=== PATIENT | female | born 1945 | race African-American/Black ===

== ENCOUNTER 2017-11-10 16:48 | Inpatient (IN) | payer MEDICARE, BC ==
[~2017-11-10] VITALS: Ht 170.2 cm; Wt 73.9 kg
--- NOTE | 2017-11-10 17:00 | Emergency Room Report ---
History of Present Illness General Chief Complaint: Altered Mental Status Present Illness HPI Patient is a 72-year-old female brought in by EMS with family member after increased altered mental status. Patient gradual onset of symptoms. The patient reportedly had a recent hospitalization approximately 2 months ago at [facility]. The patient recently been started on Nuedexta (dextromethorphan and quinidine). Patient had prior history of the reported dementia had previously been taking Seroquel. The patient was noted to have the decreased ability to ambulate for several months. Patient reportedly had a MRI previously which showed diffuse volume loss without evidence of infarct. Allergies: Coded Allergies: IODINE (Verified Allergy, Unknown, 11/10/17) Patient History Now: No Reviewed Nursing Documentation: PMH: Agreed; PSxH: Agreed Review of Systems All Other Systems: negative except mentioned in HPI Physical Exam Vital Signs Date Time Temp Pulse Resp B/P (MAP) Pulse Ox O2 Delivery O2 Flow Rate FiO2 11/10/17 16:41 98.7 90 18 146/80 96 Room Air 98.8 Sp02 EP Interpretation: reviewed, normal General Appearance: non-toxic, obese, Chronically Ill Head: atraumatic ENT: normal ENT inspection, hearing grossly normal, normal voice Neck: normal inspection, supple, no bony tend, limited range of motion Respiratory: normal inspection, lungs clear, normal breath sounds, no respiratory distress, no retraction, no wheezing Cardiovascular #1: regular rate, rhythm, no edema Gastrointestinal: normal inspection, soft, no guarding, no hernia Genitourinary: no CVA tenderness Musculoskeletal: back normal, decreased range of motion - contracture Neurologic: normal inspection, alert, responsive, handbag finisher III-XII nml as tested, speech normal, motor weakness Psychiatric: anxious Skin: normal inspection, normal color, no rash Medical Decision Making Diagnostic Impression: Primary Impression: Generalized weakness Additional Impressions: Hypokalemia UTI (urinary tract infection) Dementia ER Course Patient is a 72-year-old female who presented after increased altered mental status. Differential diagnosis included but was not limited to ischemic stroke, subarachnoid hemorrhage, hypoglycemia, spinal cord injury, neurodegenerative disorder, urinary tract infection, hypoxemia.Because of complexity of patient's case laboratory testing and imaging studies were ordered.The patient was noted to have a prior history of MRI imaging which showed a frontal atrophy. The patient was noted to have had diffuse weakness which appears to be associated with the muscle contractures.The EKG interpreted by tx showed normal sinus rhythm with a rate of [address] changes. Patient presented to have some nonspecific T wave changes and axis deviation. Laboratory testing was notable for severe hypokalemia. The patient was noted to have CT the head read by radiology which showed atrophic changes with chronic ischemic white matter changes. Patient was started on IV potassium. Magnesium level appear to be normal.Dr. Sampson Swartz was contacted for inpatient management Labs Test 11/10/17 17:15 11/10/17 17:30 White Blood Count 5.4 K/UL (4.8-10.8) Red Blood Count 4.79 M/UL (4.20-5.40) Hemoglobin 13.9 G/DL (12.0-16.0) Hematocrit 40.8 % (37.0-47.0) Mean Corpuscular Volume 85 FL (80-99) Mean Corpuscular Hemoglobin 29.0 PG (27.0-31.0) Mean Corpuscular Hemoglobin Concent 34.1 G/DL (32.0-36.0) Red Cell Distribution Width 15.1 % (11.6-14.8) Platelet Count 165 K/UL (150-450) Mean Platelet Volume 7.9 FL (6.5-10.1) Neutrophils (%) (Auto) 69.9 % (45.0-75.0) Lymphocytes (%) (Auto) 19.3 % (20.0-45.0) Monocytes (%) (Auto) 8.9 % (1.0-10.0) Eosinophils (%) (Auto) 0.8 % (0.0-3.0) Basophils (%) (Auto) 1.1 % (0.0-2.0) Sodium Level 146 MMOL/L (136-145) Potassium Level 2.6 MMOL/L (3.5-5.1) Chloride Level 109 MMOL/L (98-107) Carbon Dioxide Level 23 MMOL/L (21-32) Anion Gap 15 mmol/L (5-15) Blood Urea Nitrogen 9 mg/dL (7-18) Creatinine 1.0 MG/DL (0.55-1.30) Estimat Glomerular Filtration Rate > 60 mL/min (>60) Glucose Level 115 MG/DL (74-106) Lactic Acid Level 1.60 mmol/L (0.4-2.0) Calcium Level 10.0 MG/DL (8.5-10.1) Phosphorus Level 2.8 MG/DL (2.5-4.9) Magnesium Level 2.1 MG/DL (1.8-2.4) Total Bilirubin 0.7 MG/DL (0.2-1.0) Aspartate Amino Transf (AST/SGOT) 28 U/L (15-37) Alanine Aminotransferase (ALT/SGPT) 31 U/L (12-78) Alkaline Phosphatase 65 U/L (46-116) Total Creatine Kinase 76 U/L (26-308) Creatine Kinase MB 2.3 NG/ML (0.0-3.6) Creatine Kinase MB Relative Index 3.0 Troponin I 0.050 ng/mL (0.000-0.056) Total Protein 7.1 G/DL (6.4-8.2) Albumin 3.3 G/DL (3.4-5.0) Globulin 3.8 g/dL Albumin/Globulin Ratio 0.9 (1.0-2.7) Thyroid Stimulating Hormone (TSH) 0.746 uiU/mL (0.358-3.740) Urine Color Riri Urine Appearance Clear Urine pH 6.5 (4.5-8.0) Urine Specific [place] 1.015 (1.005-1.035) Urine Protein 1+ (NEGATIVE) Urine Glucose (UA) Negative (NEGATIVE) Urine Ketones 1+ (NEGATIVE) Urine Blood 2+ (NEGATIVE) Urine Nitrite Negative (NEGATIVE) Urine Bilirubin Negative (NEGATIVE) Urine Ictotest Negative (NEGATIVE) Urine Urobilinogen Normal MG/DL (0.0-1.0) Urine Leukocyte Esterase 1+ (NEGATIVE) Urine RBC 5-10 /HPF (0 - 2) Urine WBC 2-4 /HPF (0 - 2) Urine Squamous Epithelial Cells Moderate /LPF (NONE/OCC) Urine Bacteria Few /HPF (NONE) Urine Mucus Few /LPF (NONE/OCC) EKG Diagnostic Results Rate: normal - 85 Rhythm: NSR ST Segments: no acute changes Last Vital Signs Date Time Temp Pulse Resp B/P (MAP) Pulse Ox O2 Delivery O2 Flow Rate FiO2 11/10/17 16:41 98.7 90 18 146/80 96 Room Air 98.8 Status: unchanged Disposition: ADMITTED INPATIENT Condition: Serious Johnny Roque MD Nov 10, 2017 17:00
[2017-11-10 17:47] VITALS: BP 108/58
[2017-11-10] MEDS ORDERED: MULTIVITAMINS1 EAC8 ORAL (18:26)
[2017-11-10] MEDS ORDERED: MILK OF MA2400 MG/10 ORAL (18:26)
[2017-11-10] MEDS ORDERED: DOCUSATE SODIU100 MG ORAL ×2 (18:26)
[2017-11-10] MEDS ORDERED: METOPROLOL TART25 MG ORAL (18:26)
[2017-11-10] MEDS ORDERED: CATAPRES0.1 MG ORAL (18:26)
[2017-11-10] MEDS ORDERED: ZYPREXA2.5 MG ORAL (18:26)
[2017-11-10] MEDS ORDERED: BISACODYL5 MG RECTAL (18:26)
[2017-11-10] MEDS ORDERED: NUEDEXTA 20-101 EAC1 PO (18:26)
[2017-11-10] MEDS ORDERED: FLEET ENEMA133 ML RECTAL (18:26)
[2017-11-10] MEDS ORDERED: GERI-KOT8.6 MG PO (18:26)
[2017-11-10 18:36] LABS: BASOPHILS % (AUTO) 1.1 % (0.0-2.0); EOSINOPHILS % (AUTO) 0.8 % (0.0-3.0); HEMATOCRIT 40.8 % (37.0-47.0); HEMOGLOBIN 13.9 G/DL (12.0-16.0); LYMPHOCYTES % (AUTO) 19.3 % (20.0-45.0); MEAN CORPUSCULAR VOLUME 85 FL (80-99); MONOCYTES % (AUTO) 8.9 % (1.0-10.0); NEUTROPHILS % (AUTO) 69.9 % (45.0-75.0); PLATELET COUNT 165 K/UL (150-450); RED BLOOD COUNT 4.79 M/UL (4.20-5.40); RED CELL DISTRIBUTION WIDTH 15.1 % (11.6-14.8); WHITE BLOOD COUNT 5.4 K/UL (4.8-10.8)
[2017-11-10 18:54] LABS: APPEARANCE,URINE CLEAR; BILIRUBIN, URINE NEGATIVE (NEGATIVE); COLOR,URINE AMBER; GLUCOSE, URINE (UA) NEGATIVE (NEGATIVE); KETONES,URINE 1+ (NEGATIVE); LEUKOCYTE ESTERASE ,URINE 1+ (NEGATIVE); NITRITE,URINE NEGATIVE (NEGATIVE); PH,URINE 6.5 (4.5-8.0); PROTEIN,URINE 1+ (NEGATIVE); UROBILINOGEN,URINE NORMAL MG/DL (0.0-1.0)
[2017-11-10 19:09] LABS: ALANINE AMINOTRANSFERASE 31 U/L (12-78); ALBUMIN 3.3 G/DL (3.4-5.0); ALBUMIN/GLOBULIN RATIO 0.9 (1.0-2.7); ALKALINE PHOSPHATASE 65 U/L (46-116); ANION GAP 15 mmol/L (5-15); ASPARTATE AMINO TRANSFERASE 28 U/L (15-37); BILIRUBIN,TOTAL 0.7 MG/DL (0.2-1.0); BLOOD UREA NITROGEN 9 mg/dL (7-18); CARBON DIOXIDE 23 MMOL/L (21-32); CHLORIDE 109 MMOL/L (98-107); CKMB 2.3 NG/ML (0.0-3.6); CREATINE KINASE 76 U/L (26-308); PHOSPHORUS 2.8 MG/DL (2.5-4.9); SODIUM 146 MMOL/L (136-145)
[2017-11-10 19:10] LABS: POTASSIUM 2.6 MMOL/L (3.5-5.1)
[2017-11-10 20:25] VITALS: BP 149/96
[2017-11-10 20:30] VITALS: BP 142/91
[2017-11-10] MEDS ORDERED: Pantoprazole Inj IVP SCH (21:00)
[2017-11-10] MEDS ORDERED: D5 1/2NS w/KCl 40meq 1000ml 1,000 ML IV SCH (21:00)
[2017-11-10] MEDS ORDERED: Milk of Magnesia 30ml Ud ORAL PRN (23:30)
[2017-11-11] VITALS: BP 155/80
[2017-11-11 04:00] VITALS: BP 120/70
[2017-11-11 06:36] LABS: BASOPHILS % (AUTO) 0.6 % (0.0-2.0); EOSINOPHILS % (AUTO) 1.5 % (0.0-3.0); HEMATOCRIT 40.1 % (37.0-47.0); LYMPHOCYTES % (AUTO) 21.2 % (20.0-45.0); MEAN CORPUSCULAR VOLUME 86 FL (80-99); MONOCYTES % (AUTO) 9.9 % (1.0-10.0); NEUTROPHILS % (AUTO) 66.8 % (45.0-75.0); PLATELET COUNT 141 K/UL (150-450); RED BLOOD COUNT 4.67 M/UL (4.20-5.40); RED CELL DISTRIBUTION WIDTH 15.6 % (11.6-14.8); WHITE BLOOD COUNT 5.2 K/UL (4.8-10.8)
[2017-11-11 07:06] LABS: ALANINE AMINOTRANSFERASE 29 U/L (12-78); ALBUMIN/GLOBULIN RATIO 0.9 (1.0-2.7); ALKALINE PHOSPHATASE 60 U/L (46-116); ANION GAP 10 mmol/L (5-15); ASPARTATE AMINO TRANSFERASE 20 U/L (15-37); BILIRUBIN,TOTAL 0.6 MG/DL (0.2-1.0); BLOOD UREA NITROGEN 6 mg/dL (7-18); CALCIUM 9.4 MG/DL (8.5-10.1); CARBON DIOXIDE 24 MMOL/L (21-32); CHLORIDE 111 MMOL/L (98-107); CHOLESTEROL 213 MG/DL (< 200); CREATININE 0.8 MG/DL (0.55-1.30); GAMMA GLUTAMYL TRANSPEPTIDASE 29 U/L (5-85); HDL CHOLESTEROL 59 MG/DL (40-60); PHOSPHORUS 3.1 MG/DL (2.5-4.9); POTASSIUM 2.8 MMOL/L (3.5-5.1); SODIUM 145 MMOL/L (136-145); TRIGLYCERIDES 121 MG/DL (30-150)
[2017-11-11 08:00] VITALS: BP 137/69
--- NOTE | 2017-11-11 08:12 | Diagnostic Imaging Report ---
. Indication: Shortness of breath Technique: One view of the chest Comparison: Findings: Lungs and pleural spaces are clear. Heart size is normal Impression: No acute process
--- NOTE | 2017-11-11 08:14 | Diagnostic Imaging Report ---
Indications: Altered mental status Technique: Spiral acquisitions obtained through the brain. Angled axial and coronal 5 x 5 mm slices were reconstructed. Total dose length product 1428.87 mGycm. CTDI vol(s) 70.38 mGy. Dose reduction achieved using automated exposure control Comparison: None. Findings: There is age-related enlargement of the ventricles and extra axial CSF spaces. There is minimal periventricular deep white matter low-attenuation consistent with chronic ischemic change. Normal aquino-white differentiation. Visualized orbits and sinuses are unremarkable. The calvarium is intact Impression: Chronic and age-related changes. Negative for acute intracranial bleed or mass effect This agrees with the preliminary interpretation provided overnight by [facility] teleradiology service. The CT scanner at [facility] is accredited by the [employer] and the scans are performed using protocols designed to limit radiation exposure to as low as reasonably achievable to attain images of sufficient resolution adequate for diagnostic evaluation.
--- NOTE | 2017-11-11 08:55 | Consultation ---
Consult Note Consult Note Chief Complaint: Altered Mental Status HPI Patient is a 72-year-old female brought in by EMS with family member after increased altered mental status. Patient gradual onset of symptoms. The patient reportedly had a recent hospitalization approximately 2 months ago at [facility]. The patient recently been started on Nuedexta (dextromethorphan and quinidine). Patient had prior history of the reported dementia had previously been taking Seroquel. The patient was noted to have the decreased ability to ambulate for several months. Patient reportedly had a MRI previously which showed diffuse volume loss without evidence of infarct. Allergies: Coded Allergies: IODINE (Verified Allergy, Unknown, 11/10/17) examined data reviewed Assessment/Plan Generalized weakness Hypokalemia UTI (urinary tract infection) Dementia PO KCL Nahum Encarnacion MD Nov 11, 2017 08:55
[2017-11-11] MEDS ORDERED: OLANZapine 2.5mg tab ORAL SCH (09:00)
[2017-11-11] MEDS ORDERED: Docusate 100mg cap ORAL SCH ×2 (09:00)
[2017-11-11] MEDS: Docusate 100mg cap ORAL SCH ×3 (09:18→18:27)
--- NOTE | 2017-11-11 11:11 | Consultation ---
History of Present Illness General Date patient seen: Nov 11, 2017 Chief Complaint: Altered Mental Status Present Illness HPI 72-year-old female brought in by EMS with family member after increased altered mental status. The pt is confused and responding to internal medicine. The pt is having panic attack like sxs. The pt was crying and stated that he was scared. the pt is confused and has cognitive impairment Allergies: Coded Allergies: IODINE (Verified Allergy, Unknown, 11/10/17) Medication History Scheduled Bisacodyl* (Dulcolax*), 10 MG RECTAL PRN, (Reported) Clonidine Hcl* (Catapres*), 0.1 MG ORAL EVERY 6 HOURS, (Reported) Dextromethorphan Hbr/Quinidine (Nuedexta 20-10 Mg Capsule), 1 EACH PO DAILY, ( Reported) Docusate Sodium* (Docusate Sodium*), 100 MG ORAL PRN, (Reported) Docusate Sodium* (Docusate Sodium*), 100 MG ORAL TWICE A DAY, (Reported) Magnesium Hydroxide* (Milk Of Magnesia*), 30 ML ORAL DAILY, (Reported) Metoprolol Tartrate* (Metoprolol Tartrate*), 25 MG ORAL DAILY, (Reported) Multivitamin With Minerals (Multivitamins With Minerals*), 1 TAB ORAL DAILY, ( Reported) Na Phos,M-B/Na Phos,Di-Ba* (Fleet Enema*), 133 ML RECTAL DAILY, (Reported) Olanzapine* (Zyprexa*), 2.5 MG ORAL DAILY, (Reported) Sennosides (Laura-Palomo), 8.6 MG PO DAILY, (Reported) Patient History Limited by: medical condition History Provided By: Patient, Medical Record, PMD Healthcare decision maker Resuscitation status Full Code Advanced Directive on File No Past Medical/Surgical History Past Medical/Surgical History: (1) Hypokalemia (2) Generalized weakness (3) Dementia (4) UTI (urinary tract infection) (5) Altered level of consciousness Review of Systems Psychiatric: Reports: prior hx, anxiety, depressed feelings, hallucinations Physical Exam General Appearance: alert, confused, moderate distress, agitated Last 24 Hour Vital Signs Date Time Temp Pulse Resp B/P (MAP) Pulse Ox O2 Delivery O2 Flow Rate FiO2 11/11/17 08:00 56 11/11/17 08:00 97.0 69 18 137/69 (91) 94 97.0 11/11/17 04:00 57 11/11/17 04:00 98.2 70 20 120/70 (87) 94 98.2 11/11/17 00:00 98.4 79 20 155/80 (105) 94 98.4 11/11/17 00:00 73 11/10/17 23:22 Room Air 11/10/17 20:40 82 11/10/17 20:30 97.7 81 20 142/91 (108) 96 97.7 11/10/17 20:25 77 21 149/96 98 Room Air 11/10/17 20:25 77 21 149/96 98 Room Air 11/10/17 17:47 99.5 72 16 108/58 99 Room Air 99.5 11/10/17 16:41 98.7 90 18 146/80 96 Room Air 98.8 Intake and Output 11/10/17 11/11/17 19:00 07:00 Intake Total 200 ml Output Total 200 ml 100 ml Balance -200 ml 100 ml Intake Oral 200 ml Output Urine Total 200 ml 100 ml # Voids 2 Laboratory Tests Test 11/10/17 17:15 11/10/17 17:30 11/10/17 17:50 11/11/17 04:50 White Blood Count 5.4 K/UL (4.8-10.8) 5.2 K/UL (4.8-10.8) Red Blood Count 4.79 M/UL (4.20-5.40) 4.67 M/UL (4.20-5.40) Hemoglobin 13.9 G/DL (12.0-16.0) 13.0 G/DL (12.0-16.0) Hematocrit 40.8 % (37.0-47.0) 40.1 % (37.0-47.0) Mean Corpuscular Volume 85 FL (80-99) 86 FL (80-99) Mean Corpuscular Hemoglobin 29.0 PG (27.0-31.0) 27.9 PG (27.0-31.0) Mean Corpuscular Hemoglobin Concent 34.1 G/DL (32.0-36.0) 32.5 G/DL (32.0-36.0) Red Cell Distribution Width 15.1 % (11.6-14.8) H 15.6 % (11.6-14.8) H Platelet Count 165 K/UL (150-450) 141 K/UL (150-450) L Mean Platelet Volume 7.9 FL (6.5-10.1) 8.5 FL (6.5-10.1) Neutrophils (%) (Auto) 69.9 % (45.0-75.0) 66.8 % (45.0-75.0) Lymphocytes (%) (Auto) 19.3 % (20.0-45.0) L 21.2 % (20.0-45.0) Monocytes (%) (Auto) 8.9 % (1.0-10.0) 9.9 % (1.0-10.0) Eosinophils (%) (Auto) 0.8 % (0.0-3.0) 1.5 % (0.0-3.0) Basophils (%) (Auto) 1.1 % (0.0-2.0) 0.6 % (0.0-2.0) Sodium Level 146 MMOL/L (136-145) H 145 MMOL/L (136-145) Potassium Level 2.6 MMOL/L (3.5-5.1) *L 2.8 MMOL/L (3.5-5.1) L Chloride Level 109 MMOL/L (98-107) H 111 MMOL/L (98-107) H Carbon Dioxide Level 23 MMOL/L (21-32) 24 MMOL/L (21-32) Anion Gap 15 mmol/L (5-15) 10 mmol/L (5-15) Blood Urea Nitrogen 9 mg/dL (7-18) 6 mg/dL (7-18) L Creatinine 1.0 MG/DL (0.55-1.30) 0.8 MG/DL (0.55-1.30) Estimat Glomerular Filtration Rate > 60 mL/min (>60) > 60 mL/min (>60) Glucose Level 115 MG/DL (74-106) H 123 MG/DL (74-106) H Lactic Acid Level 1.60 mmol/L (0.4-2.0) Calcium Level 10.0 MG/DL (8.5-10.1) 9.4 MG/DL (8.5-10.1) Phosphorus Level 2.8 MG/DL (2.5-4.9) 3.1 MG/DL (2.5-4.9) Magnesium Level 2.1 MG/DL (1.8-2.4) 2.0 MG/DL (1.8-2.4) Total Bilirubin 0.7 MG/DL (0.2-1.0) 0.6 MG/DL (0.2-1.0) Aspartate Amino Transf (AST/SGOT) 28 U/L (15-37) 20 U/L (15-37) Alanine Aminotransferase (ALT/SGPT) 31 U/L (12-78) 29 U/L (12-78) Alkaline Phosphatase 65 U/L (46-116) 60 U/L (46-116) Total Creatine Kinase 76 U/L (26-308) Creatine Kinase MB 2.3 NG/ML (0.0-3.6) Creatine Kinase MB Relative Index 3.0 Troponin I 0.050 ng/mL (0.000-0.056) 0.044 ng/mL (0.000-0.056) Total Protein 7.1 G/DL (6.4-8.2) 6.5 G/DL (6.4-8.2) Albumin 3.3 G/DL (3.4-5.0) L 3.0 G/DL (3.4-5.0) L Globulin 3.8 g/dL 3.5 g/dL Albumin/Globulin Ratio 0.9 (1.0-2.7) L 0.9 (1.0-2.7) L Osteocalcin Pending Thyroid Stimulating Hormone (TSH) 0.746 uiU/mL (0.358-3.740) Urine Color Riri Urine Appearance Clear Urine pH 6.5 (4.5-8.0) Urine Specific [place] 1.015 (1.005-1.035) Urine Protein 1+ (NEGATIVE) H Urine Glucose (UA) Negative (NEGATIVE) Urine Ketones 1+ (NEGATIVE) H Urine Blood 2+ (NEGATIVE) H Urine Nitrite Negative (NEGATIVE) Urine Bilirubin Negative (NEGATIVE) Urine Ictotest Negative (NEGATIVE) Urine Urobilinogen Normal MG/DL (0.0-1.0) Urine Leukocyte Esterase 1+ (NEGATIVE) H Urine RBC 5-10 /HPF (0 - 2) H Urine WBC 2-4 /HPF (0 - 2) Urine Squamous Epithelial Cells Moderate /LPF (NONE/OCC) H Urine Bacteria Few /HPF (NONE) Urine Mucus Few /LPF (NONE/OCC) H C-Reactive Protein, Quantitative 1.2 mg/dL (0.00-0.90) H Hemoglobin A1c 6.0 % (4.3-6.0) Uric Acid 5.7 MG/DL (2.6-7.2) Gamma Glutamyl Transpeptidase 29 U/L (5-85) Pro-B-Type Natriuretic Peptide 615 pg/mL (0-125) H Triglycerides Level 121 MG/DL (30-150) Cholesterol Level 213 MG/DL (< 200) H LDL Cholesterol 128 mg/dL (<100) H HDL Cholesterol 59 MG/DL (40-60) Cholesterol/HDL Ratio 3.6 (3.3-4.4) Vitamin B12 Level 460 PG/ML (193-986) Folate 10.3 NG/ML (8.6-58.9) Height (Feet): 5 Height (Inches): 7.00 Weight (Pounds): 147 Medications Current Medications Medications (Trade) Dose Ordered Sig/Claritza Route PRN Reason Start Time Stop Time Status Last Admin Dose Admin Acetaminophen (Tylenol) 650 mg Q4H PRN ORAL Mild Pain/Temp > 100.5 11/10/17 23:30 12/10/17 23:29 Bisacodyl (Dulcolax) 10 mg NEEDED PRN RECTAL Constipation 11/10/17 23:45 12/10/17 23:44 Clonidine HCl (Catapres Tab) 0.1 mg EVERY 6 HOURS PRN ORAL For High Blood Pressure 11/10/17 23:30 12/10/17 23:29 Docusate Sodium (Colace) 100 mg TWICE A DAY ORAL 11/11/17 09:00 12/11/17 08:59 11/11/17 09:18 Famotidine (Pepcid) 20 mg BID ORAL 11/11/17 09:00 12/11/17 08:59 11/11/17 09:18 Magnesium Hydroxide (Mom) 30 ml DAILY PRN ORAL Constipation 11/10/17 23:30 12/10/17 23:29 Multivitamins (Multivitamins) 1 tab DAILY ORAL 11/11/17 09:00 12/11/17 08:59 11/11/17 09:20 Olanzapine (ZyPREXA) 2.5 mg DAILY ORAL 11/11/17 09:00 12/11/17 08:59 11/11/17 09:19 Potassium Chloride (K-Dur) 40 meq TID ORAL 11/11/17 09:00 12/11/17 08:59 11/11/17 09:20 Assessment/Plan Problem List: (1) Encephalopathy due to metabolic factor or toxin [facility]: [id number] Assessment/Plan dc zyprexa start risperdal 1mg po bid ativan 2mg q4 prn Ramon Duke MD Nov 11, 2017 11:10
[2017-11-11] MEDS ORDERED: LORazepam 1mg tab ORAL PRN (11:15)
[2017-11-11 12:00] VITALS: BP 141/75
[2017-11-11] MEDS: Piperacillin/Tazobactam 3.375 GM in D5W 110 ML IVPB SCH ×2 (15:36→21:46)
[2017-11-11 16:00] VITALS: BP 150/73
--- NOTE | 2017-11-11 17:00 | Consultation ---
DATE OF CONSULTATION: 11/11/2017 INFECTIOUS DISEASES CONSULTATION CONSULTING PHYSICIAN: Radha Dunham M.D. REFERRING PHYSICIAN: Sampson Leggett M.D. This consultation has been done on behalf of Dr. Kevon Thurston. REASON FOR CONSULTATION: Urinary tract infection. HISTORY OF PRESENTING ILLNESS: This is a 72-year-old lady with unknown past medical history, who was brought in with increasing altered mental status. She was found to have a urinary tract infection and an Infectious Diseases consultation has been obtained for antibiotics. PAST MEDICAL HISTORY: History of dementia. MEDICATIONS: As an inpatient, the patient is on Risperdal, Ativan, multivitamin, docusate, potassium, famotidine, Dulcolax, Tylenol, clonidine and milk of magnesia. ALLERGIES: She is allergic to iodine. SOCIAL HISTORY: Unknown. FAMILY HISTORY: Unknown. REVIEW OF SYSTEMS: Unable to obtain currently. PHYSICAL EXAMINATION: VITAL SIGNS: Temperature of 98.8 degrees, T-max of 99.5 degrees, pulse of 87, respiratory rate of 18, blood pressure 141/75 and O2 saturation of 94%. HEENT: Pupils equally reactive to light and accommodation. Mouth appears clean without thrush. NECK: Supple. No adenopathy. No JVD. CARDIOVASCULAR: Regular rate and rhythm. No murmurs. LUNGS: Clear to auscultation bilaterally. No crackles. No wheezes. ABDOMEN: Soft and nontender. No organomegaly. EXTREMITIES: No cyanosis, no clubbing, and no edema. LABORATORY AND DIAGNOSTIC DATA: White count 5.2, hemoglobin 13, hematocrit 40.1, MCV 86, and platelet count of 141 with neutrophils of 66%. Sodium 145, potassium 2.8, chloride 111, bicarbonate 24, BUN 6 creatinine 0.8 and glucose 123. Calcium 9.4. Total bilirubin 0.6. AST 20, ALT 29, and alkaline phosphatase 60. C-reactive protein 1.2. Beta-natriuretic peptide 615. Total protein 6.5. Albumin 3. Cholesterol of 213. UA showing 2 to 4 white cells. Urine cultures are pending. Blood cultures are pending. Chest x-ray showed no acute process. CT head showing chronic age-related changes, negative for bleed or mass effect. ASSESSMENT: This is a 72-year-old lady with history of dementia, who comes in with 1. Urinary tract infection. Cultures are pending. 2. Dementia. PLAN: 1. We will start the patient on Zosyn. 2. We will follow up cultures and adjust antibiotics accordingly. I would like to thank, Dr. Leggett for this consultation. Radha Dunham M.D. DR: PATITO JOB#: [id number] CC: Sampson Leggett M.D.; Fax#: [phone]
[2017-11-11 20:00] VITALS: BP 161/48
--- NOTE | 2017-11-11 20:45 | Consultation ---
Consult Note Consult Note NEUROLOGY CONSULTATION: Full note dictated #[id number] 72 y/o, BF of ?H who has a PH of dementia. She was brought in by EMS with a family member after she was noted to have a worsening of her mental status. She apparently had a recent hospitalization approximately 2 months ago at [facility]. She was also recently been started on Nuedexta for behavioral problems. On being evaluated in the ER she had a UTI and is being treated for it. She was given Ativan 2 mg for agitation and since then has been poorly responsive ON EXAM: Cannot be aroused even on deep pain. Only moans and groans and withdraws appropriate extremity on DP. No definite focal dysfunction. IMPRESSION: Dementia with recent encephalopathy due to UTI. In drug induced unresponsive state now. REC: Rx of infection. Careful with use of mind altering drugs. Jyoti Amos M.D., M.S.P.Radha. JYOTI AMOS Nov 11, 2017 20:45
--- NOTE | 2017-11-11 21:30 | Consultation ---
DATE OF CONSULTATION: 11/11/2017 NEUROLOGY CONSULTATION CONSULTING PHYSICIAN: Kenny Amos M.D. REQUESTING PHYSICIAN: Sampson Leggett M.D. HISTORY: Ms. Erica Ortega is a 72-year-old, black lady, of unknown handedness, who does have a past history of dementia - the exact details of this are unknown to us. She was brought in by the emergency medical services with a family member after she was noted to have a worsening of her mental state at home. She apparently had a recent hospitalization approximately two months ago at [facility] for similar symptoms. She was also recently started on Nuedexta for behavioral problems. On being evaluated in the emergency room, she had a urinary tract infection and has been seen for it by Dr. Dunham and is on appropriate antibiotics. Earlier today, she was given Ativan 2 mg for agitation and since then, she has been poorly responsive. This consultation was requested to evaluate the patient for her altered mental state. At this point in time, the patient cannot be aroused and thus no further history can be obtained. PAST MEDICAL HISTORY: Significant for dementia of unknown type with MRI imaging showing no focal pathology. FAMILY HISTORY: Nothing significant as per the chart. PERSONAL HISTORY: Home: She lives with family members at home. Work and habits: Unknown. MEDICATIONS: Risperdal 1 mg twice a day, Zosyn, lorazepam 2 mg q.6 h. p.r.n., multivitamins. She was given a single dose of olanzapine earlier, which has been discontinued, DSS, potassium chloride, Pepcid, Dulcolax, Tylenol, clonidine and magnesium hydroxide. PHYSICAL EXAMINATION: GENERAL: She is a well-developed, well-nourished, black lady, lying in bed, in no acute distress. VITAL SIGNS: Pulse 58/minute, blood pressure 161/48 mmHg, respirations 20/minute, temperature 98.1 degrees Fahrenheit. HEAD: Normocephalic and atraumatic. EENT: Examination benign. NECK: No neck rigidity was observed. NEUROLOGIC EXAMINATION: MENTAL STATUS EXAMINATION: She was unresponsive even to deep painful stimuli. She only moaned and groaned and withdrew the appropriate extremity, but did not respond many other way. Further mental status testing was impossible. SPEECH: Could not be tested. LANGUAGE: Could not be tested. CRANIAL NERVE EXAMINATION: II: She did not blink to threat. III, IV & : The external ocular movements were present on oculocephalic maneuvers. The pupils were 3 mm in diameter, equal, round, regular, and reactive sluggishly to light. V & VII: The corneal reflexes were present and symmetrical bilaterally. VIII: She did not respond to sounds and had no nystagmus. IX & X: The gag reflex was present, but diminished. XI: The sternocleidomastoids and trapezii did function. XII: The tongue was in the midline. MOTOR SYSTEM: The tone was increased in all four extremities with gegenhalten. Examination of muscle mass revealed generalized muscle wasting. Examination of power was impossible to perform because even on applying deep painful stimuli only nonpurposeful withdrawal of the extremity was made. SENSORY EXAMINATION: She responded minimally to deep pain with withdrawal of the appropriate extremity. REFLEXES: 1+ and bilaterally symmetrical at the biceps, triceps, brachioradialis, and knees, 0 at both ankles. The plantar responses were extensor bilaterally. COORDINATION, STANCE & GAIT: Could not be tested. DIAGNOSTIC IMPRESSION: 1. Ms. Erica Ortega is a 72-year-old, black lady, of unknown handedness, who does have a past history of dementia and behavioral problems who was hospitalized for an alteration in her mental state. Of note is that, she was recently started on Nuedexta for behavioral problems. On being evaluated in the emergency room, she was noted to have a urinary tract infection and is on antibiotics for it. She however was given Zyprexa earlier this morning and Ativan this evening and has been poorly responsive since then. 2. On neurological examination, at this time, she could not be aroused even on applying deep painful stimuli. She only moans and groans and withdraws the appropriate extremity on deep painful stimuli. She however does not demonstrate any focal or lateralizing neurological findings. 3. A CT scan of the brain performed on 11/10/2017 reveals atrophy and deep white matter changes, but no acute pathology. 4. Laboratory data revealed a relatively normal CBC. The chemistry panel revealed a low potassium at 2.8, a high chloride at 111 and an elevated glucose of 123. Her B12 level is normal at 460. Her folate was normal at 10.3 and her TSH was normal at 0.746. Her urinalysis however was abnormal with 1+ leukocyte esterase, 5-10 RBCs, 2-4 WBCs with few urinary bacteria. 5. The patient's history, neurological examination, laboratory data, and imaging studies are most compatible with an underlying dementia most probably of a primary degenerative nature and now a superimposed encephalopathy related to her urinary tract infection and in addition to the drugs that she was given. RECOMMENDATIONS: 1. Agree with management thus far. 2. Treatment of infectious process is being done right now. 3. One should be careful with the use of mind-altering drugs in this patient because she seems to be responding with significant sedation. 4. The patient will be observed closely and depending on how she fares over the next day or so, further recommendations will be given. Thank you for entrusting me with the care of Ms. Ortega. I shall follow her with you. Kenny Amos M.D., M.S.P.H. DR: ISAIAH JOB#: [id number] MTDD
[2017-11-12] VITALS: BP 155/75
--- NOTE | 2017-11-12 03:15 | History and Physical Report ---
DATE OF ADMISSION: 11/10/2017 NOTE: POOR AUDIO HISTORY OF PRESENT ILLNESS: The patient is a poor historian . She is admitted for generalized weakness, agitation, UTI, and severe hypokalemia. The patient is coming from a residential as well. The patient has been getting IV fluids because the patient does not eat. The patient is having both progressive dementia and psychosis. The patient is hallucinating and has psychosis. The patient is admitted for hypokalemia. In the past, workup etiology to explain the acute encephalopathy progression of her psychosis and dementia. The patient has been getting IV fluids at the residential. PAST MEDICAL HISTORY: Advanced dementia, psychosis, constipation, and hypertension. PAST SURGICAL HISTORY: None known. ALLERGIES: To iodine. MEDICATIONS: Colace, metoprolol, multivitamin, olanzapine, and Senokot. SOCIAL HISTORY: Unable to obtain. REVIEW OF SYSTEMS: Unable to obtain. FAMILY HISTORY: Unable to obtain, very poor historian. PHYSICAL EXAMINATION: VITAL SIGNS: Temperature 98.2 degrees, pulse is 57, and blood pressure 120/70. HEENT: PERRLA. NECK: Supple. No lymphadenopathy. CHEST: Clear to auscultation. GASTROINTESTINAL: Soft, nontender, and nondistended. No organomegaly. EXTREMITIES: No edema. NEUROLOGIC: Moves all four extremities. Oriented x0. The patient is hallucinating actively. LABORATORY AND DIAGNOSTIC DATA: Laboratory rbice, WBC of 5.4, hemoglobin 13.9, and platelet 165. Sodium 145, potassium 2.8, glucose 128, BUN of 6, and creatinine 0.8. ASSESSMENT AND PLAN: Urinary tract infection, severe hypokalemia, failure to thrive, not eating, hallucination, psychosis, advanced dementia. I have asked Dr. Connolly, Dr. Doan, Dr. Duke, Dr. Kevon Thurston to see the patient for the above-mentioned diagnoses and for the treatment of UTI. Sampson Leggett M.D. DR: ISAAC JOB#: [id number] CC:
[2017-11-12 04:00] VITALS: BP 121/72
[2017-11-12] MEDS: Piperacillin/Tazobactam 3.375 GM in D5W 110 ML IVPB SCH ×2 (05:49→14:58)
[2017-11-12 07:46] LABS: BASOPHILS % (AUTO) 1.3 % (0.0-2.0); EOSINOPHILS % (AUTO) 2.1 % (0.0-3.0); HEMATOCRIT 41.9 % (37.0-47.0); HEMOGLOBIN 13.5 G/DL (12.0-16.0); MEAN CORPUSCULAR VOLUME 86 FL (80-99); MONOCYTES % (AUTO) 10.8 % (1.0-10.0); NEUTROPHILS % (AUTO) 62.8 % (45.0-75.0); PLATELET COUNT 129 K/UL (150-450); RED BLOOD COUNT 4.86 M/UL (4.20-5.40); RED CELL DISTRIBUTION WIDTH 15.5 % (11.6-14.8); WHITE BLOOD COUNT 5.5 K/UL (4.8-10.8)
[2017-11-12 08:00] VITALS: BP 115/67
[2017-11-12 08:11] LABS: ALANINE AMINOTRANSFERASE 26 U/L (12-78); ALBUMIN/GLOBULIN RATIO 0.8 (1.0-2.7); ALKALINE PHOSPHATASE 61 U/L (46-116); ANION GAP 9 mmol/L (5-15); ASPARTATE AMINO TRANSFERASE 26 U/L (15-37); BILIRUBIN,TOTAL 0.9 MG/DL (0.2-1.0); BLOOD UREA NITROGEN 7 mg/dL (7-18); CALCIUM 9.5 MG/DL (8.5-10.1); CARBON DIOXIDE 25 MMOL/L (21-32); CHLORIDE 110 MMOL/L (98-107); CREATININE 0.9 MG/DL (0.55-1.30); POTASSIUM 3.1 MMOL/L (3.5-5.1); SODIUM 144 MMOL/L (136-145)
[2017-11-12] MEDS: Docusate 100mg cap ORAL SCH ×3 (09:07→17:36)
--- NOTE | 2017-11-12 10:21 | GI Initial Consult Note ---
History of Present Illness General Date patient seen: Nov 12, 2017 Time patient seen: 10:21 Reason for Hospitalization: Altered Mental Status Referring physician: RENATO JOHNS Reason for Consultation: CONSTIPATION Present Illness HPI Patient is a 72-year-old female brought in by EMS with family member after increased altered mental status. Patient gradual onset of symptoms. The patient reportedly had a recent hospitalization approximately 2 months ago at [facility]. The patient recently been started on Nuedexta (dextromethorphan and quinidine). Patient had prior history of the reported dementia had previously been taking Seroquel. The patient was noted to have the decreased ability to ambulate for several months. Patient reportedly had a MRI previously which showed diffuse volume loss without evidence of infarct. GI consulted for constipation. ROS limited, pt seen awake unable to obtain any history. NAD, no active s/sx of N/V/D. Per report patient has constipation. No report of any last BM. Labs reviewed show hypokalemia. No leukocytosis. No anemia. Unknown history of endoscopy / colonoscopy. Home Meds Reported Medications Olanzapine* (ZYPREXA*) 2.5 Mg Tablet, 2.5 MG ORAL DAILY, #30 TAB 0 Refills 11/10/17 Dextromethorphan Hbr/Quinidine (NUEDEXTA 20-10 MG CAPSULE) 1 Each Capsule, 1 EACH PO DAILY, CAP 11/10/17 Multivitamin With Minerals (MULTIVITAMINS WITH MINERALS*) 1 Each Tablet, 1 TAB ORAL DAILY, TAB 11/10/17 Magnesium Hydroxide* (MILK OF MAGNESIA*) 2,400 Mg/10 Ml Oral.susp, 30 ML ORAL DAILY, ML 11/10/17 Metoprolol Tartrate* (METOPROLOL TARTRATE*) 25 Mg Tablet, 25 MG ORAL DAILY, TAB 11/10/17 Sennosides (Laura-Palomo) 8.6 Mg Tablet, 8.6 MG PO DAILY, TAB 11/10/17 Na Phos,M-B/Na Phos,Di-Ba* (FLEET ENEMA*) 133 Ml Enema, 133 ML RECTAL DAILY, ML 0 Refills 11/10/17 Bisacodyl* (DULCOLAX*) 5 Mg Tablet.dr, 10 MG RECTAL PRN, #10 TAB 0 Refills 11/10/17 Docusate Sodium* (DOCUSATE SODIUM*) 100 Mg Capsule, 100 MG ORAL TWICE A DAY, CAP 11/10/17 Docusate Sodium* (DOCUSATE SODIUM*) 100 Mg Capsule, 100 MG ORAL PRN, CAP 11/10/17 Clonidine Hcl* (CATAPRES*) 0.1 Mg Tablet, 0.1 MG ORAL EVERY 6 HOURS, TAB 11/10/17 Med list reviewed/reconciled: Yes Allergies: Coded Allergies: IODINE (Verified Allergy, Unknown, 11/10/17) Patient History Limited by: medical condition History Provided By: Medical Record [facility] Narrative PAST MEDICAL HISTORY: Advanced dementia, psychosis, constipation, and hypertension. PAST SURGICAL HISTORY: None known. Social History: Denies: smoking, alcohol use, drug use, other Review of Systems All Other Systems: limited Physical Exam Vital Signs Date Time Temp Pulse Resp B/P (MAP) Pulse Ox O2 Delivery O2 Flow Rate FiO2 11/10/17 16:41 98.7 90 18 146/80 96 Room Air 98.8 Sp02 EP Interpretation: reviewed, normal Labs Laboratory Tests Test 11/12/17 07:15 White Blood Count 5.5 K/UL (4.8-10.8) Red Blood Count 4.86 M/UL (4.20-5.40) Hemoglobin 13.5 G/DL (12.0-16.0) Hematocrit 41.9 % (37.0-47.0) Mean Corpuscular Volume 86 FL (80-99) Mean Corpuscular Hemoglobin 27.8 PG (27.0-31.0) Mean Corpuscular Hemoglobin Concent 32.3 G/DL (32.0-36.0) Red Cell Distribution Width 15.5 % (11.6-14.8) H Platelet Count 129 K/UL (150-450) L Mean Platelet Volume 8.6 FL (6.5-10.1) Neutrophils (%) (Auto) 62.8 % (45.0-75.0) Lymphocytes (%) (Auto) 23.0 % (20.0-45.0) Monocytes (%) (Auto) 10.8 % (1.0-10.0) H Eosinophils (%) (Auto) 2.1 % (0.0-3.0) Basophils (%) (Auto) 1.3 % (0.0-2.0) Sodium Level 144 MMOL/L (136-145) Potassium Level 3.1 MMOL/L (3.5-5.1) L Chloride Level 110 MMOL/L (98-107) H Carbon Dioxide Level 25 MMOL/L (21-32) Anion Gap 9 mmol/L (5-15) Blood Urea Nitrogen 7 mg/dL (7-18) Creatinine 0.9 MG/DL (0.55-1.30) Estimat Glomerular Filtration Rate > 60 mL/min (>60) Glucose Level 94 MG/DL (74-106) Calcium Level 9.5 MG/DL (8.5-10.1) Total Bilirubin 0.9 MG/DL (0.2-1.0) Aspartate Amino Transf (AST/SGOT) 26 U/L (15-37) Alanine Aminotransferase (ALT/SGPT) 26 U/L (12-78) Alkaline Phosphatase 61 U/L (46-116) Total Protein 6.7 G/DL (6.4-8.2) Albumin 3.0 G/DL (3.4-5.0) L Globulin 3.7 g/dL Albumin/Globulin Ratio 0.8 (1.0-2.7) L General Appearance: well appearing, no apparent distress, alert Head: normocephalic EENT: PERRL/EOMI, normal ENT inspection Neck: supple Respiratory: normal breath sounds, no respiratory distress Cardiovascular: normal rate Gastrointestinal: normal inspection, non tender, soft, normal bowel sounds, non -distended Rectal: deferred Genitourinary: no CVA tenderness Musculoskeletal: normal inspection, back normal Neurologic: normal inspection, responsive Skin: normal inspection, normal color, no rash, warm/dry, palpation normal, well hydrated Lymphatic: normal inspection, no adenopathy Current Medications Current Medications Medications (Trade) Dose Ordered Sig/Claritza Route PRN Reason Start Time Stop Time Status Last Admin Dose Admin Acetaminophen (Tylenol) 650 mg Q4H PRN ORAL Mild Pain/Temp > 100.5 11/10/17 23:30 12/10/17 23:29 Bisacodyl (Dulcolax) 10 mg NEEDED PRN RECTAL Constipation 11/10/17 23:45 12/10/17 23:44 Clonidine HCl (Catapres Tab) 0.1 mg EVERY 6 HOURS PRN ORAL For High Blood Pressure 11/10/17 23:30 12/10/17 23:29 Docusate Sodium (Colace) 100 mg TWICE A DAY ORAL 11/11/17 09:00 12/11/17 08:59 11/12/17 09:07 Famotidine (Pepcid) 20 mg BID ORAL 11/11/17 09:00 12/11/17 08:59 11/12/17 09:07 Lorazepam (Ativan) 2 mg Q6H PRN ORAL For Anxiety 11/11/17 11:15 11/18/17 11:14 11/11/17 15:40 Magnesium Hydroxide (Mom) 30 ml DAILY PRN ORAL Constipation 11/10/17 23:30 12/10/17 23:29 Multivitamins (Multivitamins) 1 tab DAILY ORAL 11/11/17 09:00 12/11/17 08:59 11/12/17 09:07 Piperacillin Sod/ Tazobactam Sod 3.375 gm/Dextrose 110 ml @ 27.5 mls/hr EVERY 8 HOURS IVPB 11/11/17 15:30 11/16/17 15:29 11/12/17 05:49 Potassium Chloride (K-Dur) 40 meq TID ORAL 11/11/17 09:00 12/11/17 08:59 11/12/17 09:08 Risperidone (RisperDAL) 1 mg BID ORAL 11/11/17 18:00 12/11/17 17:59 11/12/17 09:07 GI: Plan Problems: (1) Constipation (2) Generalized weakness (3) Dementia (4) Altered level of consciousness Plan supportive care at this time, follow up psych recs patient on regular diet start bowel regime >> colace + miralax ppi zofran prn fu labs outpatient GI procedures Discussed with Dr. Doan. Thank you for this patient referral, we will follow. The patient was seen and examined at bedside and all new and available data was reviewed in the patients chart. I agree with the above findings, impression and plan. (Patient seen earlier today. Signature stamp does not reflect patient encounter time.). - MD Darlene Arguelles,Angelina-Xavi [employer] Nov 12, 2017 10:21
[2017-11-12 12:00] VITALS: BP 120/65
--- NOTE | 2017-11-12 12:49 | Nephrology Progress Note ---
Assessment/Plan Problem List: (1) Hypokalemia (2) Dementia (3) UTI (urinary tract infection) (4) Encephalopathy due to metabolic factor or toxin Assessment Severe Encephalopathy Generalized weakness Hypokalemia UTI (urinary tract infection) Dementia Plan NPO except meds- IV fluid Adjust mind altering meds start PO when more awake discussed with RN Subjective ROS Limited/Unobtainable: No Constitutional: Reports: malaise, weakness, other Objective Objective Last 24 Hour Vital Signs Date Time Temp Pulse Resp B/P (MAP) Pulse Ox O2 Delivery O2 Flow Rate FiO2 11/12/17 12:00 98.6 68 120/65 (83) 98.6 11/12/17 09:00 Room Air 11/12/17 08:00 98.0 66 115/67 (83) 98.0 11/12/17 07:54 56 11/12/17 04:03 54 11/12/17 04:00 98.0 57 20 121/72 (88) 95 98.0 11/12/17 00:00 98.2 91 20 155/75 (101) 100 98.2 11/11/17 23:42 73 11/11/17 21:00 Room Air 11/11/17 20:00 55 11/11/17 20:00 98.1 58 20 161/48 (85) 90 98.1 11/11/17 16:00 98.2 74 18 150/73 (98) 93 98.2 11/11/17 16:00 80 Intake and Output 11/11/17 11/12/17 19:00 07:00 Intake Total 117.0 ml Output Total 300 ml Balance -183.0 ml IV Total 117.0 ml Output Urine Total 300 ml # Voids 3 Laboratory Tests 11/12/17 07:15: White Blood Count 5.5, Red Blood Count 4.86, Hemoglobin 13.5, Hematocrit 41.9, Mean Corpuscular Volume 86, Mean Corpuscular Hemoglobin 27.8, Mean Corpuscular Hemoglobin Concent 32.3, Red Cell Distribution Width 15.5H, Platelet Count 129L , Mean Platelet Volume 8.6, Neutrophils (%) (Auto) 62.8, Lymphocytes (%) (Auto) 23.0, Monocytes (%) (Auto) 10.8H, Eosinophils (%) (Auto) 2.1, Basophils (%) ( Auto) 1.3, Sodium Level 144, Potassium Level 3.1L, Chloride Level 110H, Carbon Dioxide Level 25, Anion Gap 9, Blood Urea Nitrogen 7, Creatinine 0.9, Estimat Glomerular Filtration Rate > 60, Glucose Level 94, Calcium Level 9.5, Total Bilirubin 0.9, Aspartate Amino Transf (AST/SGOT) 26, Alanine Aminotransferase ( ALT/SGPT) 26, Alkaline Phosphatase 61, Total Protein 6.7, Albumin 3.0L, Globulin 3.7, Albumin/Globulin Ratio 0.8L Height (Feet): 5 Height (Inches): 7.00 Weight (Pounds): 147 General Appearance: lethargic, other - arousable Cardiovascular: bradycardia Respiratory/Chest: decreased breath sounds Abdomen: soft Neurologic: other - non verbal Nahum Connolly MD Nov 12, 2017 12:49
[2017-11-12] MEDS: D5 1/2NS 1,000 ML IV SCH (13:09)
--- NOTE | 2017-11-12 14:06 | General Progress Note ---
Assessment/Plan Problem List: (1) Encephalopathy due to metabolic factor or toxin SNOMED: 254287789 Status: stable Assessment/Plan decrease ativan decrease risperdal 1mg qhs Subjective Date patient seen: Nov 12, 2017 Neurologic/Psychiatric: Reports: anxiety, emotional problems Allergies: Coded Allergies: IODINE (Verified Allergy, Unknown, 11/10/17) Subjective calmer today Objective Last 24 Hour Vital Signs Date Time Temp Pulse Resp B/P (MAP) Pulse Ox O2 Delivery O2 Flow Rate FiO2 11/12/17 12:00 98.6 68 120/65 (83) 98.6 11/12/17 11:57 65 11/12/17 09:00 Room Air 11/12/17 08:00 98.0 66 115/67 (83) 98.0 11/12/17 07:54 56 11/12/17 04:03 54 11/12/17 04:00 98.0 57 20 121/72 (88) 95 98.0 11/12/17 00:00 98.2 91 20 155/75 (101) 100 98.2 11/11/17 23:42 73 11/11/17 21:00 Room Air 11/11/17 20:00 55 11/11/17 20:00 98.1 58 20 161/48 (85) 90 98.1 11/11/17 16:00 98.2 74 18 150/73 (98) 93 98.2 11/11/17 16:00 80 Intake and Output 11/11/17 11/12/17 19:00 07:00 Intake Total 117.0 ml Output Total 300 ml Balance -183.0 ml IV Total 117.0 ml Output Urine Total 300 ml # Voids 3 Laboratory Tests 11/12/17 07:15: White Blood Count 5.5, Red Blood Count 4.86, Hemoglobin 13.5, Hematocrit 41.9, Mean Corpuscular Volume 86, Mean Corpuscular Hemoglobin 27.8, Mean Corpuscular Hemoglobin Concent 32.3, Red Cell Distribution Width 15.5H, Platelet Count 129L , Mean Platelet Volume 8.6, Neutrophils (%) (Auto) 62.8, Lymphocytes (%) (Auto) 23.0, Monocytes (%) (Auto) 10.8H, Eosinophils (%) (Auto) 2.1, Basophils (%) ( Auto) 1.3, Sodium Level 144, Potassium Level 3.1L, Chloride Level 110H, Carbon Dioxide Level 25, Anion Gap 9, Blood Urea Nitrogen 7, Creatinine 0.9, Estimat Glomerular Filtration Rate > 60, Glucose Level 94, Calcium Level 9.5, Total Bilirubin 0.9, Aspartate Amino Transf (AST/SGOT) 26, Alanine Aminotransferase ( ALT/SGPT) 26, Alkaline Phosphatase 61, Total Protein 6.7, Albumin 3.0L, Globulin 3.7, Albumin/Globulin Ratio 0.8L Height (Feet): 5 Height (Inches): 7.00 Weight (Pounds): 147 General Appearance: no apparent distress, alert, confused Ramon Duke MD Nov 12, 2017 14:06
--- NOTE | 2017-11-12 14:29 | General Progress Note ---
Assessment/Plan Problem List: (1) Hypokalemia ICD Codes: E87.6 - Hypokalemia SNOMED: 18414563 (2) Dementia ICD Codes: F03.90 - Unspecified dementia without behavioral disturbance SNOMED: 80020210 (3) Altered level of consciousness ICD Codes: R40.4 - Transient alteration of awareness SNOMED: 3822674 (4) Encephalopathy due to metabolic factor or toxin SNOMED: 372104905 Status: unchanged Assessment/Plan spoke w brother/dpoa and told him that i gave transfer order to [facility] per his request discussed w dr cartwright dementia and psychosis r/o metabolic/toxic etiology per neurology LP per dr delarosa or id unclear etiology for ams r/o encephalopathy Subjective Allergies: Coded Allergies: IODINE (Verified Allergy, Unknown, 11/10/17) Subjective agitated s/p bzd administration Objective Last 24 Hour Vital Signs Date Time Temp Pulse Resp B/P (MAP) Pulse Ox O2 Delivery O2 Flow Rate FiO2 11/12/17 12:00 98.6 68 120/65 (83) 98.6 11/12/17 11:57 65 11/12/17 09:00 Room Air 11/12/17 08:00 98.0 66 115/67 (83) 98.0 11/12/17 07:54 56 11/12/17 04:03 54 11/12/17 04:00 98.0 57 20 121/72 (88) 95 98.0 11/12/17 00:00 98.2 91 20 155/75 (101) 100 98.2 11/11/17 23:42 73 11/11/17 21:00 Room Air 11/11/17 20:00 55 11/11/17 20:00 98.1 58 20 161/48 (85) 90 98.1 11/11/17 16:00 98.2 74 18 150/73 (98) 93 98.2 11/11/17 16:00 80 Intake and Output 11/11/17 11/12/17 19:00 07:00 Intake Total 117.0 ml Output Total 300 ml Balance -183.0 ml IV Total 117.0 ml Output Urine Total 300 ml # Voids 3 Laboratory Tests 11/12/17 07:15: White Blood Count 5.5, Red Blood Count 4.86, Hemoglobin 13.5, Hematocrit 41.9, Mean Corpuscular Volume 86, Mean Corpuscular Hemoglobin 27.8, Mean Corpuscular Hemoglobin Concent 32.3, Red Cell Distribution Width 15.5H, Platelet Count 129L , Mean Platelet Volume 8.6, Neutrophils (%) (Auto) 62.8, Lymphocytes (%) (Auto) 23.0, Monocytes (%) (Auto) 10.8H, Eosinophils (%) (Auto) 2.1, Basophils (%) ( Auto) 1.3, Sodium Level 144, Potassium Level 3.1L, Chloride Level 110H, Carbon Dioxide Level 25, Anion Gap 9, Blood Urea Nitrogen 7, Creatinine 0.9, Estimat Glomerular Filtration Rate > 60, Glucose Level 94, Calcium Level 9.5, Total Bilirubin 0.9, Aspartate Amino Transf (AST/SGOT) 26, Alanine Aminotransferase ( ALT/SGPT) 26, Alkaline Phosphatase 61, Total Protein 6.7, Albumin 3.0L, Globulin 3.7, Albumin/Globulin Ratio 0.8L Height (Feet): 5 Height (Inches): 7.00 Weight (Pounds): 147 General Appearance: confused Cardiovascular: normal rate Respiratory/Chest: lungs clear Sampson Leggett MD Nov 12, 2017 14:29
--- NOTE | 2017-11-12 15:20 | Infectious Diseases Prog Note ---
Assessment/Plan Assessment/Plan A; Pyuria, doubt UTI Altered mental status Dementia P; Discontinue Zosyn will discuss with Dr Amos regarding LP Subjective ROS Limited/Unobtainable: Yes Musculoskeletal: Reports: other - moaning Allergies: Coded Allergies: IODINE (Verified Allergy, Unknown, 11/10/17) Objective Vital Signs Last 24 Hour Vital Signs Date Time Temp Pulse Resp B/P (MAP) Pulse Ox O2 Delivery O2 Flow Rate FiO2 11/12/17 12:00 98.6 68 120/65 (83) 98.6 11/12/17 11:57 65 11/12/17 09:00 Room Air 11/12/17 08:00 98.0 66 115/67 (83) 98.0 11/12/17 07:54 56 11/12/17 04:03 54 11/12/17 04:00 98.0 57 20 121/72 (88) 95 98.0 11/12/17 00:00 98.2 91 20 155/75 (101) 100 98.2 11/11/17 23:42 73 11/11/17 21:00 Room Air 11/11/17 20:00 55 11/11/17 20:00 98.1 58 20 161/48 (85) 90 98.1 11/11/17 16:00 98.2 74 18 150/73 (98) 93 98.2 11/11/17 16:00 80 Height (Feet): 5 Height (Inches): 7.00 Weight (Pounds): 147 HEENT: mucous membranes moist Respiratory/Chest: lungs clear Cardiovascular: normal rate Abdomen: soft, non tender Extremities: no edema Neurologic/Psychiatric: disoriented Microbiology Date/Time Source Procedure Growth Status 11/10/17 17:32 Blood Blood Culture - Preliminary NO GROWTH AFTER 24 HOURS Resulted 11/10/17 17:15 Blood Blood Culture - Preliminary NO GROWTH AFTER 24 HOURS Resulted 11/11/17 05:30 Urine,Clean Catch Urine Culture - Preliminary Mixed Urogenital Contaminants Resulted Laboratory Tests Test 11/12/17 07:15 White Blood Count 5.5 K/UL (4.8-10.8) Red Blood Count 4.86 M/UL (4.20-5.40) Hemoglobin 13.5 G/DL (12.0-16.0) Hematocrit 41.9 % (37.0-47.0) Mean Corpuscular Volume 86 FL (80-99) Mean Corpuscular Hemoglobin 27.8 PG (27.0-31.0) Mean Corpuscular Hemoglobin Concent 32.3 G/DL (32.0-36.0) Red Cell Distribution Width 15.5 % (11.6-14.8) H Platelet Count 129 K/UL (150-450) L Mean Platelet Volume 8.6 FL (6.5-10.1) Neutrophils (%) (Auto) 62.8 % (45.0-75.0) Lymphocytes (%) (Auto) 23.0 % (20.0-45.0) Monocytes (%) (Auto) 10.8 % (1.0-10.0) H Eosinophils (%) (Auto) 2.1 % (0.0-3.0) Basophils (%) (Auto) 1.3 % (0.0-2.0) Sodium Level 144 MMOL/L (136-145) Potassium Level 3.1 MMOL/L (3.5-5.1) L Chloride Level 110 MMOL/L (98-107) H Carbon Dioxide Level 25 MMOL/L (21-32) Anion Gap 9 mmol/L (5-15) Blood Urea Nitrogen 7 mg/dL (7-18) Creatinine 0.9 MG/DL (0.55-1.30) Estimat Glomerular Filtration Rate > 60 mL/min (>60) Glucose Level 94 MG/DL (74-106) Calcium Level 9.5 MG/DL (8.5-10.1) Total Bilirubin 0.9 MG/DL (0.2-1.0) Aspartate Amino Transf (AST/SGOT) 26 U/L (15-37) Alanine Aminotransferase (ALT/SGPT) 26 U/L (12-78) Alkaline Phosphatase 61 U/L (46-116) Total Protein 6.7 G/DL (6.4-8.2) Albumin 3.0 G/DL (3.4-5.0) L Globulin 3.7 g/dL Albumin/Globulin Ratio 0.8 (1.0-2.7) L Current Medications Medications (Trade) Dose Ordered Sig/Claritza Route PRN Reason Start Time Stop Time Status Last Admin Dose Admin Acetaminophen (Tylenol) 650 mg Q4H PRN ORAL Mild Pain/Temp > 100.5 9/18/18 23:30 12/10/17 23:29 Bisacodyl (Dulcolax) 10 mg NEEDED PRN RECTAL Constipation 11/10/17 23:45 12/10/17 23:44 Clonidine HCl (Catapres Tab) 0.1 mg EVERY 6 HOURS PRN ORAL For High Blood Pressure 11/10/17 23:30 12/10/17 23:29 Dextrose/Sodium Chloride 1,000 ml @ 50 mls/hr Q20H IV 11/12/17 13:00 12/12/17 12:59 11/12/17 13:09 Docusate Sodium (Colace) 100 mg THREE TIMES A DAY ORAL 11/12/17 13:00 12/12/17 12:59 Famotidine (Pepcid I.v.) 20 mg Q12HR IVP 11/12/17 21:00 12/12/17 20:59 Lorazepam (Ativan) 1 mg Q6H PRN ORAL For Anxiety 11/12/17 14:30 11/19/17 14:29 Piperacillin Sod/ Tazobactam Sod 3.375 gm/Dextrose 110 ml @ 27.5 mls/hr EVERY 8 HOURS IVPB 11/11/17 15:30 11/16/17 15:29 11/12/17 14:58 Polyethylene Glycol (Miralax) 17 gm BEDTIME ORAL 11/12/17 21:00 12/12/17 20:59 Potassium Chloride 100 ml @ 100 mls/hr Q1H IVPB 11/12/17 13:00 11/12/17 16:59 11/12/17 14:33 Risperidone (RisperDAL) 1 mg BEDTIME ORAL 11/12/17 21:00 12/12/17 20:59 Kevon Thurston MD Nov 12, 2017 15:20
[2017-11-12 16:00] VITALS: BP 151/114
--- NOTE | 2017-11-12 18:59 | Cardiology Report ---
APPROVED REPORT EKG Measurement Heart [id number] [place] [id number] Normal sinus rhythm with sinus arrhythmia Possible Left atrial enlargement Left axis deviation Anterolateral infarct, age undetermined T wave abnormality, consider inferior ischemia Abnormal ECG
[2017-11-12 19:56] VITALS: BP 138/82
--- NOTE | 2017-11-12 20:25 | Neurology Progress Note ---
Interim History Interim History Interim History Ms. Ortega continues to be poorly responsive. As per Dr. Duke, her psychiatrist, she was worked up at [facility] [place] for a rapidly progressive dementia and there was a question as to whether she had an encephalitis. However no LP was done. I had a chance to talk to her and brother and sister today. They tell me she was a normally functioning person until July 2017. In August 2017 she had to be hospitalized for language problems, confusion, behavioral problems, episodes of fear, and loss of ability to walk. At this time she is sedated. Review of Systems Neuro Review of Systems Unable to obtain Objective Physical Exam Last Vital Signs Date Time Temp Pulse Resp B/P (MAP) Pulse Ox O2 Delivery O2 Flow Rate FiO2 11/12/17 16:00 98.8 95 22 151/114 (126) 98.8 11/12/17 09:00 Room Air 11/12/17 04:00 95 Laboratory Tests Test 11/12/17 07:15 White Blood Count 5.5 K/UL (4.8-10.8) Red Blood Count 4.86 M/UL (4.20-5.40) Hemoglobin 13.5 G/DL (12.0-16.0) Hematocrit 41.9 % (37.0-47.0) Mean Corpuscular Volume 86 FL (80-99) Mean Corpuscular Hemoglobin 27.8 PG (27.0-31.0) Mean Corpuscular Hemoglobin Concent 32.3 G/DL (32.0-36.0) Red Cell Distribution Width 15.5 % (11.6-14.8) H Platelet Count 129 K/UL (150-450) L Mean Platelet Volume 8.6 FL (6.5-10.1) Neutrophils (%) (Auto) 62.8 % (45.0-75.0) Lymphocytes (%) (Auto) 23.0 % (20.0-45.0) Monocytes (%) (Auto) 10.8 % (1.0-10.0) H Eosinophils (%) (Auto) 2.1 % (0.0-3.0) Basophils (%) (Auto) 1.3 % (0.0-2.0) Sodium Level 144 MMOL/L (136-145) Potassium Level 3.1 MMOL/L (3.5-5.1) L Chloride Level 110 MMOL/L (98-107) H Carbon Dioxide Level 25 MMOL/L (21-32) Anion Gap 9 mmol/L (5-15) Blood Urea Nitrogen 7 mg/dL (7-18) Creatinine 0.9 MG/DL (0.55-1.30) Estimat Glomerular Filtration Rate > 60 mL/min (>60) Glucose Level 94 MG/DL (74-106) Calcium Level 9.5 MG/DL (8.5-10.1) Total Bilirubin 0.9 MG/DL (0.2-1.0) Aspartate Amino Transf (AST/SGOT) 26 U/L (15-37) Alanine Aminotransferase (ALT/SGPT) 26 U/L (12-78) Alkaline Phosphatase 61 U/L (46-116) Total Protein 6.7 G/DL (6.4-8.2) Albumin 3.0 G/DL (3.4-5.0) L Globulin 3.7 g/dL Albumin/Globulin Ratio 0.8 (1.0-2.7) L Neurologic Exam Objective PHYSICAL EXAMINATION: GENERAL: She is a well-developed, well-nourished, black lady, lying in bed, in no acute distress. HEAD: Normocephalic and atraumatic. EENT: Examination benign. NECK: She exhibited significant neck rigidity in all directions. NEUROLOGIC EXAMINATION: MENTAL STATUS EXAMINATION: She was unresponsive even to deep painful stimuli. She only moaned and groaned and withdrew the appropriate extremity, but did not respond many other way. Further mental status testing was impossible. SPEECH: Could not be tested. LANGUAGE: Could not be tested. CRANIAL NERVE EXAMINATION: II: She did not blink to threat. III, IV & : The external ocular movements were present on oculocephalic maneuvers. The pupils were 3 mm in diameter, equal, round, regular, and reactive sluggishly to light. V & VII: The corneal reflexes were present and symmetrical bilaterally. VIII: She did not respond to sounds and had no nystagmus. IX & X: The gag reflex was present, but diminished. XI: The sternocleidomastoids and trapezii did function. XII: The tongue was in the midline. MOTOR SYSTEM: The tone was increased in all four extremities with gegenhalten. Examination of muscle mass revealed generalized muscle wasting. Examination of power was impossible to perform because even on applying deep painful stimuli only nonpurposeful withdrawal of the extremity was made. SENSORY EXAMINATION: She responded minimally to deep pain with withdrawal of the appropriate extremity. REFLEXES: 1+ and bilaterally symmetrical at the biceps, triceps, brachioradialis , and knees, 0 at both ankles. The plantar responses were extensor bilaterally. COORDINATION, STANCE & GAIT: Could not be tested. Impression/Recommendations Diagnostic Impression 1. Ms. Erica Ortega is a 72-year-old, black lady, of unknown handedness, who does have a past history of dementia and behavioral problems who was hospitalized for an alteration in her mental state. Of note is that, she was recently started on Nuedexta for behavioral problems. On being evaluated in the emergency room, she was noted to have a urinary tract infection and is on antibiotics for it. 2. As per Dr. Duke, her psychiatrist, she was worked up at [facility] [place] for a rapidly progressive dementia and there was a question as to whether she had an encephalitis. However no LP was done. 3. I had a chance to talk to her and brother and sister. They tell me she was a normally functioning person until July 2017. In August 2017 she had to be hospitalized for language problems, confusion, behavioral problems, episodes of fear, and loss of ability to walk. 4. She continues to be poorly responsive. At this time she is sedated. 5. On neurological examination, at this time, she exhibits neck rigidity in all directions. She cannot be aroused even on applying deep painful stimuli. She only moans and groans and withdraws the appropriate extremity on deep painful stimuli. She however does not demonstrate any focal or lateralizing neurological findings. 6. A CT scan of the brain performed on 11/10/2017 reveals atrophy and deep white matter changes, but no acute pathology. 7. Laboratory data revealed a relatively normal CBC. The chemistry panel revealed a low potassium at 2.8, a high chloride at 111 and an elevated glucose of 123. Her B12 level is normal at 460. Her folate was normal at 10.3 and her TSH was normal at 0.746. Her urinalysis however was abnormal with 1+ leukocyte esterase , 5-10 RBCs, 2-4 WBCs with few urinary bacteria. 8. The patient's history, neurological examination, laboratory data, and imaging studies are most compatible with a rapidly progressive dementia which has not been worked up thoroughly at this time. Recommendations 1. Continue present management. 2. Her family is going to transfer her to for further management. 3. When she gets there she should get a LP and the CSF should be sent for indolent infectious processes and the CJD Protein 14-3-3. 4. She should also be worked up for anti NMDA receptor encephalitis. 5. An MRI with volumetric analysis and ab brain PET may also be useful. 6. Once an accurate diagnosis is made then further management plans can be made. Jyoti Amos M.D., M.S.P.Radha. JYOTI AMOS Nov 12, 2017 20:25
[2017-11-12] MEDS: Miralax 17gm pkt ORAL SCH (21:00)
[2017-11-13] VITALS: BP 127/74
[2017-11-13 04:00] VITALS: BP 137/47
[2017-11-13 08:00] VITALS: BP_SYST 121; BP_SYST 154; BP_DIAS 63; BP_DIAS 68
[2017-11-13] MEDS: Docusate 100mg cap ORAL SCH ×2 (08:42→12:47)
[2017-11-13] MEDS: D5 1/2NS 1,000 ML IV SCH (08:49)
--- NOTE | 2017-11-13 10:44 | GI Progress Note ---
Assessment/Plan Problems: (1) Encephalopathy due to metabolic factor or toxin SNOMED: 995661997 (2) Constipation ICD Codes: K59.00 - Constipation, unspecified SNOMED: 87977965 (3) Altered level of consciousness ICD Codes: R40.4 - Transient alteration of awareness SNOMED: 3635008 (4) Dementia ICD Codes: F03.90 - Unspecified dementia without behavioral disturbance SNOMED: 39481356 (5) Generalized weakness ICD Codes: R53.1 - Weakness SNOMED: 98195894 Status: stable Status Narrative Discussed with Dr. Doan. Assessment/Plan supportive care at this time, follow up psych recs patient on regular diet bowel regime >> colace + miralax ppi zofran prn fu labs outpatient GI procedures The patient was seen and examined at bedside and all new and available data was reviewed in the patients chart. I agree with the above findings, impression and plan. (Patient seen earlier today. Signature stamp does not reflect patient encounter time.). - Thang Doan MD Subjective Subjective limited Objective Last 24 Hour Vital Signs Date Time Temp Pulse Resp B/P (MAP) Pulse Ox O2 Delivery O2 Flow Rate FiO2 11/13/17 08:00 99 11/13/17 08:00 98.4 66 18 154/68 (96) 96 98.4 11/13/17 04:00 97.8 79 22 137/47 (77) 95 97.8 11/13/17 04:00 77 11/13/17 00:00 98.3 89 21 127/74 (91) 95 98.3 11/13/17 00:00 93 11/12/17 21:00 Room Air 11/12/17 20:00 75 11/12/17 19:56 98.1 64 22 138/82 (100) 95 98.1 11/12/17 16:00 98.8 95 22 151/114 (126) 98.8 11/12/17 15:30 104 11/12/17 12:00 98.6 68 120/65 (83) 98.6 11/12/17 11:57 65 Intake and Output 11/12/17 11/13/17 19:00 07:00 Intake Total 355.0 ml Output Total 600 ml Balance -245.0 ml IV Total 355.0 ml Output Urine Total 600 ml Height (Feet): 5 Height (Inches): 7.00 Weight (Pounds): 147 General Appearance: confused Cardiovascular: normal rate Respiratory/Chest: normal breath sounds, no respiratory distress Abdominal Exam: normal bowel sounds, non tender, soft Lynette Colon NP Nov 13, 2017 10:44
[2017-11-13 12:00] VITALS: BP 126/85
--- NOTE | 2017-11-13 12:40 | General Progress Note ---
Assessment/Plan Problem List: (1) Hypokalemia ICD Codes: E87.6 - Hypokalemia SNOMED: 75469510 (2) Dementia ICD Codes: F03.90 - Unspecified dementia without behavioral disturbance SNOMED: 14328765 (3) Altered level of consciousness ICD Codes: R40.4 - Transient alteration of awareness SNOMED: 7153117 (4) Encephalopathy due to metabolic factor or toxin SNOMED: 549779948 Status: unchanged Assessment/Plan transfer to [facility] per dopa request is already in the system discussed w dr cartwright dementia and psychosis r/o metabolic/toxic etiology per neurology LP per dr delarosa or id unclear etiology for ams r/o encephalopathy waxing and waning mental status afebrile Subjective ROS Limited/Unobtainable: Yes Allergies: Coded Allergies: IODINE (Verified Allergy, Unknown, 11/10/17) Subjective agitated Objective Last 24 Hour Vital Signs Date Time Temp Pulse Resp B/P (MAP) Pulse Ox O2 Delivery O2 Flow Rate FiO2 11/13/17 09:00 Room Air 11/13/17 08:00 99 11/13/17 08:00 98.4 66 18 154/68 (96) 96 98.4 11/13/17 04:00 97.8 79 22 137/47 (77) 95 97.8 11/13/17 04:00 77 11/13/17 00:00 98.3 89 21 127/74 (91) 95 98.3 11/13/17 00:00 93 11/12/17 21:00 Room Air 11/12/17 20:00 75 11/12/17 19:56 98.1 64 22 138/82 (100) 95 98.1 11/12/17 16:00 98.8 95 22 151/114 (126) 98.8 11/12/17 15:30 104 Intake and Output 11/12/17 11/13/17 19:00 07:00 Intake Total 355.0 ml 50 ml Output Total 600 ml Balance -245.0 ml 50 ml IV Total 355.0 ml 50 ml Output Urine Total 600 ml Height (Feet): 5 Height (Inches): 7.00 Weight (Pounds): 147 Respiratory/Chest: lungs clear Abdomen: soft Sampson Leggett MD Nov 13, 2017 12:40
[2017-11-13] MEDS ORDERED: Docusate 100mg/10ml Liq NG ONE (13:00)
--- NOTE | 2017-11-13 13:00 | Infectious Diseases Prog Note ---
Assessment/Plan Assessment/Plan A; Pyuria, doubt UTI Altered mental status Dementia, rapidly progressive P; Waiting for LP Family wants transfer to [facility] Subjective ROS Limited/Unobtainable: Yes Gastrointestinal/Abdominal: Reports: other - NPO Allergies: Coded Allergies: IODINE (Verified Allergy, Unknown, 11/10/17) Objective Vital Signs Last 24 Hour Vital Signs Date Time Temp Pulse Resp B/P (MAP) Pulse Ox O2 Delivery O2 Flow Rate FiO2 11/13/17 12:00 98.0 82 20 126/85 (99) 93 98.0 11/13/17 12:00 78 11/13/17 09:00 Room Air 11/13/17 08:00 97.5 100 22 121/63 (82) 93 97.5 11/13/17 08:00 99 11/13/17 04:00 97.8 79 22 137/47 (77) 95 97.8 11/13/17 04:00 77 11/13/17 00:00 98.3 89 21 127/74 (91) 95 98.3 11/13/17 00:00 93 11/12/17 21:00 Room Air 11/12/17 20:00 75 11/12/17 19:56 98.1 64 22 138/82 (100) 95 98.1 11/12/17 16:00 98.8 95 22 151/114 (126) 98.8 11/12/17 15:30 104 Height (Feet): 5 Height (Inches): 7.00 Weight (Pounds): 147 General Appearance: no acute distress HEENT: mucous membranes moist Respiratory/Chest: lungs clear Cardiovascular: normal rate Abdomen: soft, non tender Extremities: no edema Neurologic/Psychiatric: disoriented Microbiology Date/Time Source Procedure Growth Status 11/10/17 17:32 Blood Blood Culture - Preliminary NO GROWTH AFTER 48 HOURS Resulted 11/10/17 17:15 Blood Blood Culture - Preliminary NO GROWTH AFTER 48 HOURS Resulted 11/10/17 19:30 Nasal Nares MRSA Culture - Final NO METHICILLIN RESISTANT STAPH AUREUS... Complete 11/11/17 05:30 Urine,Clean Catch Urine Culture - Final Mixed Urogenital Contaminants Complete 11/10/17 19:30 Rectum - Final NO CARBAPENEM-RESISTANT ENTEROBACTERI... Complete 11/10/17 19:30 Rectum VRE Culture - Final Enterococcus Faecalis - Vre Complete Current Medications Medications (Trade) Dose Ordered Sig/Claritza Route PRN Reason Start Time Stop Time Status Last Admin Dose Admin Acetaminophen (Tylenol) 650 mg Q4H PRN ORAL Mild Pain/Temp > 100.5 11/10/17 23:30 12/10/17 23:29 Bisacodyl (Dulcolax) 10 mg NEEDED PRN RECTAL Constipation 11/10/17 23:45 12/10/17 23:44 Clonidine HCl (Catapres Tab) 0.1 mg EVERY 6 HOURS PRN ORAL For High Blood Pressure 11/10/17 23:30 12/10/17 23:29 Dextrose/Sodium Chloride 1,000 ml @ 50 mls/hr Q20H IV 11/12/17 13:00 12/12/17 12:59 11/13/17 08:49 Docusate Sodium (Colace) 100 mg THREE TIMES A DAY NG 11/13/17 13:00 12/13/17 12:59 UNV Famotidine (Pepcid I.v.) 20 mg Q12HR IVP 11/12/17 21:00 12/12/17 20:59 11/13/17 08:42 Lorazepam (Ativan) 1 mg Q6H PRN ORAL For Anxiety 11/12/17 14:30 11/19/17 14:29 Polyethylene Glycol (Miralax) 17 gm BEDTIME ORAL 11/12/17 21:00 12/12/17 20:59 Risperidone (RisperDAL) 1 mg BEDTIME ORAL 11/12/17 21:00 12/12/17 20:59 11/12/17 21:27 Kevon Thurston MD Nov 13, 2017 13:00
--- NOTE | 2017-11-13 13:13 | General Progress Note ---
Assessment/Plan Problem List: (1) Encephalopathy due to metabolic factor or toxin SNOMED: 008583702 Status: stable Assessment/Plan decrease ativan risperdal 1mg qhs Subjective Date patient seen: Nov 13, 2017 Neurologic/Psychiatric: Reports: anxiety Allergies: Coded Allergies: IODINE (Verified Allergy, Unknown, 11/10/17) Subjective the pt is lethargic today Objective Last 24 Hour Vital Signs Date Time Temp Pulse Resp B/P (MAP) Pulse Ox O2 Delivery O2 Flow Rate FiO2 11/13/17 12:00 98.0 82 20 126/85 (99) 93 98.0 11/13/17 12:00 78 11/13/17 09:00 Room Air 11/13/17 08:00 97.5 100 22 121/63 (82) 93 97.5 11/13/17 08:00 99 11/13/17 04:00 97.8 79 22 137/47 (77) 95 97.8 11/13/17 04:00 77 11/13/17 00:00 98.3 89 21 127/74 (91) 95 98.3 11/13/17 00:00 93 11/12/17 21:00 Room Air 11/12/17 20:00 75 11/12/17 19:56 98.1 64 22 138/82 (100) 95 98.1 11/12/17 16:00 98.8 95 22 151/114 (126) 98.8 11/12/17 15:30 104 Intake and Output 11/12/17 11/13/17 19:00 07:00 Intake Total 355.0 ml 50 ml Output Total 600 ml Balance -245.0 ml 50 ml IV Total 355.0 ml 50 ml Output Urine Total 600 ml Height (Feet): 5 Height (Inches): 7.00 Weight (Pounds): 147 General Appearance: no apparent distress, lethargic, confused Ramon Duke MD Nov 13, 2017 13:13
--- NOTE | 2017-11-13 13:46 | Nephrology Progress Note ---
Assessment/Plan Problem List: (1) Hypokalemia (2) Dementia (3) UTI (urinary tract infection) (4) Encephalopathy due to metabolic factor or toxin Assessment Severe Encephalopathy rapidly progressive dementia, ? Encephalitis Generalized weakness Hypokalemia UTI (urinary tract infection) Dementia hypokalemia Plan NPO except meds- IV fluid Adjust mind altering meds start PO when more awake discussed with RN due transfer to a higher level of care Objective Objective Last 24 Hour Vital Signs Date Time Temp Pulse Resp B/P (MAP) Pulse Ox O2 Delivery O2 Flow Rate FiO2 11/13/17 12:00 98.0 82 20 126/85 (99) 93 98.0 11/13/17 12:00 78 11/13/17 09:00 Room Air 11/13/17 08:00 97.5 100 22 121/63 (82) 93 97.5 11/13/17 08:00 99 11/13/17 04:00 97.8 79 22 137/47 (77) 95 97.8 11/13/17 04:00 77 11/13/17 00:00 98.3 89 21 127/74 (91) 95 98.3 11/13/17 00:00 93 11/12/17 21:00 Room Air 11/12/17 20:00 75 11/12/17 19:56 98.1 64 22 138/82 (100) 95 98.1 11/12/17 16:00 98.8 95 22 151/114 (126) 98.8 11/12/17 15:30 104 Intake and Output 11/12/17 11/13/17 19:00 07:00 Intake Total 355.0 ml 50 ml Output Total 600 ml Balance -245.0 ml 50 ml IV Total 355.0 ml 50 ml Output Urine Total 600 ml Height (Feet): 5 Height (Inches): 7.00 Weight (Pounds): 147 Nahum Connolly MD Nov 13, 2017 13:46
--- NOTE | 2017-11-13 14:03 | Neurology Progress Note ---
Interim History Interim History Interim History Ms. Ortega continues to be poorly responsive. She only wakes up on deep pain. When she does wake up she moans and groans. She is still severely cognitively impoverished. She is still motorically challenged. Review of Systems Neuro Review of Systems Unable to obtain Objective Physical Exam Last Vital Signs Date Time Temp Pulse Resp B/P (MAP) Pulse Ox O2 Delivery O2 Flow Rate FiO2 11/13/17 12:00 98.0 82 20 126/85 (99) 93 98.0 11/13/17 09:00 Room Air Neurologic Exam Objective PHYSICAL EXAMINATION: GENERAL: She is a well-developed, well-nourished, black lady, lying in bed, in no acute distress. HEAD: Normocephalic and atraumatic. EENT: Examination benign. NECK: She exhibited significant neck rigidity in all directions. NEUROLOGIC EXAMINATION: MENTAL STATUS EXAMINATION: She only responded deep painful stimuli with arousal. She only moaned and groaned and withdrew the appropriate extremity, but did not respond many other way. Further mental status testing was impossible. SPEECH: Could not be tested. LANGUAGE: Could not be tested. CRANIAL NERVE EXAMINATION: II: She did not blink to threat. III, IV & : The external ocular movements were present on oculocephalic maneuvers. The pupils were 3 mm in diameter, equal, round, regular, and reactive sluggishly to light. V & VII: The corneal reflexes were present and symmetrical bilaterally. VIII: She did not respond to sounds and had no nystagmus. IX & X: The gag reflex was present, but diminished. XI: The sternocleidomastoids and trapezii did function. XII: The tongue was in the midline. MOTOR SYSTEM: The tone was increased in all four extremities with gegenhalten. Examination of muscle mass revealed generalized muscle wasting. Examination of power was impossible to perform because even on applying deep painful stimuli only nonpurposeful withdrawal of the extremity was made. SENSORY EXAMINATION: She responded minimally to deep pain with withdrawal of the appropriate extremity. REFLEXES: 1+ and bilaterally symmetrical at the biceps, triceps, brachioradialis , and knees, 0 at both ankles. The plantar responses were extensor bilaterally. COORDINATION, STANCE & GAIT: Could not be tested. Impression/Recommendations Diagnostic Impression 1. Ms. Erica Ortega is a 72-year-old, black lady, of unknown handedness, who does have a past history of dementia and behavioral problems who was hospitalized for an alteration in her mental state. Of note is that, she was recently started on Nuedexta for behavioral problems. On being evaluated in the emergency room, she was noted to have a urinary tract infection and is on antibiotics for it. 2. As per Dr. Duke, her psychiatrist, she was worked up at [facility] at [place] for a rapidly progressive dementia and there was a question as to whether she had an encephalitis. However no LP was done. 3. I had a chance to talk to her and brother and sister. They tell me she was a normally functioning person until July 2017. In August 2017 she had to be hospitalized for language problems, confusion, behavioral problems, episodes of fear, and loss of ability to walk. 4. She continues to be poorly responsive. 5. On neurological examination, at this time, she exhibits neck rigidity in all directions. She cannot be aroused even on applying deep painful stimuli. She only moans and groans and withdraws the appropriate extremity on deep painful stimuli. She however does not demonstrate any focal or lateralizing neurological findings. 6. A CT scan of the brain performed on 11/10/2017 reveals atrophy and deep white matter changes, but no acute pathology. 7. Laboratory data revealed a relatively normal CBC. The chemistry panel revealed a low potassium at 2.8, a high chloride at 111 and an elevated glucose of 123. Her B12 level is normal at 460. Her folate was normal at 10.3 and her TSH was normal at 0.746. Her urinalysis however was abnormal with 1+ leukocyte esterase, 5-10 RBCs, 2-4 WBCs with few urinary bacteria. 8. The patient's history, neurological examination, laboratory data, and imaging studies are most compatible with a rapidly progressive dementia which has not been worked up thoroughly at this time. Recommendations 1. Continue present management. 2. Her family wants to transfer her to for further management however no bed is available. 3. A LP will be ordered to be done [place] [facility] [place] and the CSF should be sent for indolent infectious processes and the CJD Protein 14-3-3. 4. She should also be worked up for anti NMDA receptor encephalitis. 5. An MRI with volumetric analysis and ab brain PET may also be useful. 6. Once an accurate diagnosis is made then further management plans can be made. Jyoti Amos M.D., M.S.P.H. JYOTI AMOS Nov 13, 2017 14:03
[2017-11-13] MEDS ORDERED: D5 1/2NS 1000ml IV ONE (15:22)
[2017-11-13] MEDS: D5 1/2NS w/KCl 40meq 1000ml 1,000 ML IV SCH (15:45)
[2017-11-13 16:00] VITALS: BP 154/86
[2017-11-13] MEDS ORDERED: LORazepam Inj 2mg/ml 1ml IV SCH (16:00)
[2017-11-13] MEDS ORDERED: Docusate 100mg/10ml Liq NG SCH (18:00)
[2017-11-13] MEDS: Docusate 100mg/10ml Liq NG SCH (18:18)
[2017-11-13] MEDS: LORazepam 1mg tab ORAL PRN (18:20)
[2017-11-13 20:00] VITALS: BP 154/84
[2017-11-13] MEDS: Miralax 17gm pkt ORAL SCH (20:53)
[2017-11-14] VITALS: BP 156/82
[2017-11-14 04:00] VITALS: BP 139/61
[2017-11-14 07:38] LABS: BASOPHILS % (AUTO) 1.4 % (0.0-2.0); EOSINOPHILS % (AUTO) 2.4 % (0.0-3.0); HEMATOCRIT 46.2 % (37.0-47.0); HEMOGLOBIN 14.8 G/DL (12.0-16.0); LYMPHOCYTES % (AUTO) 23.1 % (20.0-45.0); MEAN CORPUSCULAR VOLUME 85 FL (80-99); MONOCYTES % (AUTO) 11.1 % (1.0-10.0); NEUTROPHILS % (AUTO) 61.9 % (45.0-75.0); PLATELET COUNT 152 K/UL (150-450); RED BLOOD COUNT 5.42 M/UL (4.20-5.40); RED CELL DISTRIBUTION WIDTH 15.4 % (11.6-14.8); WHITE BLOOD COUNT 6.3 K/UL (4.8-10.8)
[2017-11-14 07:54] LABS: ANION GAP 10 mmol/L (5-15); BLOOD UREA NITROGEN 6 mg/dL (7-18); CALCIUM 9.6 MG/DL (8.5-10.1); CARBON DIOXIDE 21 MMOL/L (21-32); CHLORIDE 109 MMOL/L (98-107); CREATININE 0.7 MG/DL (0.55-1.30); PHOSPHORUS 2.9 MG/DL (2.5-4.9); POTASSIUM 3.4 MMOL/L (3.5-5.1); SODIUM 140 MMOL/L (136-145)
[2017-11-14] MEDS: Docusate 100mg/10ml Liq NG SCH ×4 (08:17→17:52)
[2017-11-14 08:55] VITALS: BP 148/91
--- NOTE | 2017-11-14 09:15 | Nephrology Progress Note ---
Assessment/Plan Problem List: (1) Hypokalemia (2) Dementia (3) UTI (urinary tract infection) (4) Encephalopathy due to metabolic factor or toxin Assessment Severe Encephalopathy rapidly progressive dementia, ? Encephalitis Generalized weakness Hypokalemia UTI (urinary tract infection) Dementia hypokalemia Plan NPO except meds- IV fluid Adjust mind altering meds start PO when more awake discussed with RN due transfer to a higher level of care ? NGT ? higher level care? Subjective ROS Limited/Unobtainable: Yes Objective Objective Last 24 Hour Vital Signs Date Time Temp Pulse Resp B/P (MAP) Pulse Ox O2 Delivery O2 Flow Rate FiO2 11/14/17 09:00 76 11/14/17 09:00 Room Air 11/14/17 08:55 98.1 81 20 148/91 (110) 94 98.1 11/14/17 04:00 77 11/14/17 04:00 98.6 84 19 139/61 (87) 94 98.6 11/14/17 00:00 99.1 70 19 156/82 (106) 94 99.1 11/14/17 00:00 74 11/13/17 21:00 Room Air 11/13/17 20:00 89 11/13/17 20:00 100.0 93 20 154/84 (107) 95 100.0 11/13/17 16:00 88 11/13/17 16:00 97.2 85 20 154/86 (108) 94 97.2 11/13/17 12:00 98.0 82 20 126/85 (99) 93 98.0 11/13/17 12:00 78 Intake and Output 11/13/17 11/14/17 19:00 07:00 Intake Total 350 ml 600 ml Output Total 1100 ml 200 ml Balance -750 ml 400 ml IV Total 350 ml 600 ml Output Urine Total 1100 ml 200 ml Laboratory Tests 11/14/17 07:12: White Blood Count 6.3, Red Blood Count 5.42H, Hemoglobin 14.8, Hematocrit 46.2, Mean Corpuscular Volume 85, Mean Corpuscular Hemoglobin 27.3, Mean Corpuscular Hemoglobin Concent 32.1, Red Cell Distribution Width 15.4H, Platelet Count 152, Mean Platelet Volume 8.3, Neutrophils (%) (Auto) 61.9, Lymphocytes (%) (Auto) 23.1, Monocytes (%) (Auto) 11.1H, Eosinophils (%) (Auto) 2.4, Basophils (%) ( Auto) 1.4, Sodium Level 140, Potassium Level 3.4L, Chloride Level 109H, Carbon Dioxide Level 21, Anion Gap 10, Blood Urea Nitrogen 6L, Creatinine 0.7, Estimat Glomerular Filtration Rate > 60, Glucose Level 121H, Calcium Level 9.6, Phosphorus Level 2.9, Magnesium Level 2.0 Height (Feet): 5 Height (Inches): 7.00 Weight (Pounds): 147 General Appearance: no apparent distress Cardiovascular: normal rate Respiratory/Chest: decreased breath sounds Abdomen: soft Neurologic: other - poorly responsive Nahum Connolly MD Nov 14, 2017 09:15
[2017-11-14] MEDS: D5 1/2NS w/KCl 40meq 1000ml 1,000 ML IV SCH (10:34)
[2017-11-14 11:55] VITALS: BP 148/77
--- NOTE | 2017-11-14 14:01 | Diagnostic Imaging Report ---
EXAM: XR Abdomen, 1 View CLINICAL HISTORY: NGT TECHNIQUE: Frontal supine view of the abdomen/pelvis. COMPARISON: No relevant prior studies available. FINDINGS: Gastrointestinal tract: Unremarkable. Bones/joints: No acute fracture. Tubes, lines and devices: Enteric tube in the stomach. IMPRESSION: Enteric tube in the stomach.
[2017-11-14 16:00] VITALS: BP 152/90
--- NOTE | 2017-11-14 16:52 | General Progress Note ---
Assessment/Plan Problem List: (1) Hypokalemia ICD Codes: E87.6 - Hypokalemia SNOMED: 60816889 (2) Dementia ICD Codes: F03.90 - Unspecified dementia without behavioral disturbance SNOMED: 50471148 (3) Altered level of consciousness ICD Codes: R40.4 - Transient alteration of awareness SNOMED: 5525114 (4) Encephalopathy due to metabolic factor or toxin SNOMED: 524135221 Status: progressing Assessment/Plan transfer to [facility] per dopa request is already in the system LP -PER dr delarosa and dr blanchard agitated advanced dementia ams encephalopathy of unclear etiology psychosis Subjective Allergies: Coded Allergies: IODINE (Verified Allergy, Unknown, 11/10/17) Subjective waxing and waning mental state agitated Objective Last 24 Hour Vital Signs Date Time Temp Pulse Resp B/P (MAP) Pulse Ox O2 Delivery O2 Flow Rate FiO2 11/14/17 16:00 97.9 71 20 152/90 (110) 95 97.9 11/14/17 16:00 67 11/14/17 12:00 65 11/14/17 11:55 97.5 60 18 148/77 (100) 96 97.5 11/14/17 09:00 76 11/14/17 09:00 Room Air 11/14/17 08:55 98.1 81 20 148/91 (110) 94 98.1 11/14/17 04:00 77 11/14/17 04:00 98.6 84 19 139/61 (87) 94 98.6 11/14/17 00:00 99.1 70 19 156/82 (106) 94 99.1 11/14/17 00:00 74 11/13/17 21:00 Room Air 11/13/17 20:00 89 11/13/17 20:00 100.0 93 20 154/84 (107) 95 100.0 Intake and Output 11/13/17 11/14/17 19:00 07:00 Intake Total 350 ml 600 ml Output Total 1100 ml 200 ml Balance -750 ml 400 ml IV Total 350 ml 600 ml Output Urine Total 1100 ml 200 ml Laboratory Tests 11/14/17 07:12: White Blood Count 6.3, Red Blood Count 5.42H, Hemoglobin 14.8, Hematocrit 46.2, Mean Corpuscular Volume 85, Mean Corpuscular Hemoglobin 27.3, Mean Corpuscular Hemoglobin Concent 32.1, Red Cell Distribution Width 15.4H, Platelet Count 152, Mean Platelet Volume 8.3, Neutrophils (%) (Auto) 61.9, Lymphocytes (%) (Auto) 23.1, Monocytes (%) (Auto) 11.1H, Eosinophils (%) (Auto) 2.4, Basophils (%) ( Auto) 1.4, Sodium Level 140, Potassium Level 3.4L, Chloride Level 109H, Carbon Dioxide Level 21, Anion Gap 10, Blood Urea Nitrogen 6L, Creatinine 0.7, Estimat Glomerular Filtration Rate > 60, Glucose Level 121H, Calcium Level 9.6, Phosphorus Level 2.9, Magnesium Level 2.0 Height (Feet): 5 Height (Inches): 7.00 Weight (Pounds): 147 General Appearance: confused Sampson Leggett MD Nov 14, 2017 16:52
--- NOTE | 2017-11-14 16:59 | Neurology Progress Note ---
Interim History Interim History Interim History Ms. Ortega continues to be poorly responsive. She only wakes up on deep pain. When she does wake up she moans and groans. She is still severely cognitively impoverished. She is still motorically challenged. A LP was attempted yesterday but she was moving constantly and thus the radiologist was unable to perform it. Review of Systems Neuro Review of Systems Unable to obtain Objective Physical Exam Last Vital Signs Date Time Temp Pulse Resp B/P (MAP) Pulse Ox O2 Delivery O2 Flow Rate FiO2 11/14/17 16:00 97.9 71 20 152/90 (110) 95 97.9 11/14/17 09:00 Room Air Laboratory Tests Test 11/14/17 07:12 White Blood Count 6.3 K/UL (4.8-10.8) Red Blood Count 5.42 M/UL (4.20-5.40) H Hemoglobin 14.8 G/DL (12.0-16.0) Hematocrit 46.2 % (37.0-47.0) Mean Corpuscular Volume 85 FL (80-99) Mean Corpuscular Hemoglobin 27.3 PG (27.0-31.0) Mean Corpuscular Hemoglobin Concent 32.1 G/DL (32.0-36.0) Red Cell Distribution Width 15.4 % (11.6-14.8) H Platelet Count 152 K/UL (150-450) Mean Platelet Volume 8.3 FL (6.5-10.1) Neutrophils (%) (Auto) 61.9 % (45.0-75.0) Lymphocytes (%) (Auto) 23.1 % (20.0-45.0) Monocytes (%) (Auto) 11.1 % (1.0-10.0) H Eosinophils (%) (Auto) 2.4 % (0.0-3.0) Basophils (%) (Auto) 1.4 % (0.0-2.0) Sodium Level 140 MMOL/L (136-145) Potassium Level 3.4 MMOL/L (3.5-5.1) L Chloride Level 109 MMOL/L (98-107) H Carbon Dioxide Level 21 MMOL/L (21-32) Anion Gap 10 mmol/L (5-15) Blood Urea Nitrogen 6 mg/dL (7-18) L Creatinine 0.7 MG/DL (0.55-1.30) Estimat Glomerular Filtration Rate > 60 mL/min (>60) Glucose Level 121 MG/DL (74-106) H Calcium Level 9.6 MG/DL (8.5-10.1) Phosphorus Level 2.9 MG/DL (2.5-4.9) Magnesium Level 2.0 MG/DL (1.8-2.4) Neurologic Exam Objective PHYSICAL EXAMINATION: GENERAL: She is a well-developed, well-nourished, black lady, lying in bed, in no acute distress. HEAD: Normocephalic and atraumatic. EENT: Examination benign. NECK: She exhibited significant neck rigidity in all directions. NEUROLOGIC EXAMINATION: MENTAL STATUS EXAMINATION: She only responded deep painful stimuli with arousal. She only moaned and groaned and withdrew the appropriate extremity, but did not respond in any other way. Further mental status testing was impossible. SPEECH: Could not be tested. LANGUAGE: Could not be tested. CRANIAL NERVE EXAMINATION: II: She did not blink to threat. III, IV & : The external ocular movements were present on oculocephalic maneuvers. The pupils were 3 mm in diameter, equal, round, regular, and reactive sluggishly to light. V & VII: The corneal reflexes were present and symmetrical bilaterally. VIII: She did not respond to sounds and had no nystagmus. IX & X: The gag reflex was present, but diminished. XI: The sternocleidomastoids and trapezii did function. XII: The tongue was in the midline. MOTOR SYSTEM: The tone was increased in all four extremities with gegenhalten. Examination of muscle mass revealed generalized muscle wasting. Examination of power was impossible to perform because even on applying deep painful stimuli only nonpurposeful withdrawal of the extremity was made. SENSORY EXAMINATION: She responded minimally to deep pain with withdrawal of the appropriate extremity. REFLEXES: 1+ and bilaterally symmetrical at the biceps, triceps, brachioradialis , and knees, 0 at both ankles. The plantar responses were extensor bilaterally. COORDINATION, STANCE & GAIT: Could not be tested. Impression/Recommendations Diagnostic Impression 1. Ms. Erica Ortega is a 72-year-old, black lady, of unknown handedness, who does have a past history of dementia and behavioral problems who was hospitalized for an alteration in her mental state. Of note is that, she was recently started on Nuedexta for behavioral problems. On being evaluated in the emergency room, she was noted to have a urinary tract infection and is on antibiotics for it. 2. As per Dr. Duke, her psychiatrist, she was worked up at [facility] at [place] for a rapidly progressive dementia and there was a question as to whether she had an encephalitis. However no LP was done. 3. I had a chance to talk to her and brother and sister. They tell me she was a normally functioning person until July 2017. In August 2017 she had to be hospitalized for language problems, confusion, behavioral problems, episodes of fear, and loss of ability to walk. 4. She continues to be poorly responsive today. She only wakes up on deep pain. When she does wake up she moans and groans. She is still severely cognitively impoverished. She is still motorically challenged. A LP was attempted yesterday but she was moving constantly and thus the radiologist was unable to perform it. 5. On neurological examination, at this time, she exhibits neck rigidity in all directions. She only wakes up momentarily on deep painful stimuli. She only moans and groans and withdraws the appropriate extremity on deep painful stimuli. She however does not demonstrate any focal or lateralizing neurological findings. 6. A CT scan of the brain performed on 11/10/2017 reveals atrophy and deep white matter changes, but no acute pathology. 7. Laboratory data revealed a relatively normal CBC. The chemistry panel revealed a low potassium at 2.8, a high chloride at 111 and an elevated glucose of 123. Her B12 level is normal at 460. Her folate was normal at 10.3 and her TSH was normal at 0.746. Her urinalysis however was abnormal with 1+ leukocyte esterase, 5-10 RBCs, 2-4 WBCs with few urinary bacteria. 8. The patient's history, neurological examination, laboratory data, and imaging studies are most compatible with a rapidly progressive dementia which has not been worked up thoroughly at this time. Recommendations 1. Continue present management. 2. Her family wants to transfer her to for further management however no bed is available. 3. A [place] for [place]16[place]17 [place] [facility] [place] the CSF should be sent for indolent infectious processes and the CJD Protein 14-3-3. 4. She should also be worked up for anti NMDA receptor encephalitis. 5. An MRI with volumetric analysis and a brain PET may also be useful. 6. Once an accurate diagnosis is made then further management plans can be made. Jyoti Amos M.D., M.S.P.Radha. JYOTI AMOS Nov 14, 2017 16:59
--- NOTE | 2017-11-14 17:55 | General Progress Note ---
Assessment/Plan Assessment/Plan Assessment/Plan Problems: (1) Encephalopathy due to metabolic factor or toxin- dysphagia SNOMED: 079499022 (2) Constipation ICD Codes: K59.00 - Constipation, unspecified SNOMED: 45202560 (3) Altered level of consciousness ICD Codes: R40.4 - Transient alteration of awareness SNOMED: 3716461 (4) Dementia ICD Codes: F03.90 - Unspecified dementia without behavioral disturbance SNOMED: 17392013 (5) Generalized weakness ICD Codes: R53.1 - Weakness SNOMED: 09741286 Status: stable Assessment/Plan supportive care at this time, follow up psych recs place NGT and begin feeds Neurology f/u bowel regime >> colace + miralax ppi zofran prn fu labs outpatient GI procedures Subjective Allergies: Coded Allergies: IODINE (Verified Allergy, Unknown, 11/10/17) Subjective above noted d/w RN patient nonverbal Objective Last 24 Hour Vital Signs Date Time Temp Pulse Resp B/P (MAP) Pulse Ox O2 Delivery O2 Flow Rate FiO2 11/14/17 16:00 97.9 71 20 152/90 (110) 95 97.9 11/14/17 16:00 67 11/14/17 12:00 65 11/14/17 11:55 97.5 60 18 148/77 (100) 96 97.5 11/14/17 09:00 76 11/14/17 09:00 Room Air 11/14/17 08:55 98.1 81 20 148/91 (110) 94 98.1 11/14/17 04:00 77 11/14/17 04:00 98.6 84 19 139/61 (87) 94 98.6 11/14/17 00:00 99.1 70 19 156/82 (106) 94 99.1 11/14/17 00:00 74 11/13/17 21:00 Room Air 11/13/17 20:00 89 11/13/17 20:00 100.0 93 20 154/84 (107) 95 100.0 Intake and Output 11/13/17 11/14/17 19:00 07:00 Intake Total 350 ml 600 ml Output Total 1100 ml 200 ml Balance -750 ml 400 ml IV Total 350 ml 600 ml Output Urine Total 1100 ml 200 ml Laboratory Tests 11/14/17 07:12: White Blood Count 6.3, Red Blood Count 5.42H, Hemoglobin 14.8, Hematocrit 46.2, Mean Corpuscular Volume 85, Mean Corpuscular Hemoglobin 27.3, Mean Corpuscular Hemoglobin Concent 32.1, Red Cell Distribution Width 15.4H, Platelet Count 152, Mean Platelet Volume 8.3, Neutrophils (%) (Auto) 61.9, Lymphocytes (%) (Auto) 23.1, Monocytes (%) (Auto) 11.1H, Eosinophils (%) (Auto) 2.4, Basophils (%) ( Auto) 1.4, Sodium Level 140, Potassium Level 3.4L, Chloride Level 109H, Carbon Dioxide Level 21, Anion Gap 10, Blood Urea Nitrogen 6L, Creatinine 0.7, Estimat Glomerular Filtration Rate > 60, Glucose Level 121H, Calcium Level 9.6, Phosphorus Level 2.9, Magnesium Level 2.0 Height (Feet): 5 Height (Inches): 7.00 Weight (Pounds): 147 Objective Elderly WW NCAT supple CTA RRR Abd soft NT ND no edema OBS Marshal Jin MD Nov 14, 2017 17:55
[2017-11-14 20:00] VITALS: BP 140/76
[2017-11-14] MEDS: Miralax 17gm pkt ORAL SCH (21:46)
[2017-11-15] VITALS: BP 147/42
[2017-11-15] MEDS: LORazepam 1mg tab ORAL PRN ×2 (02:30→08:44)
[2017-11-15 04:00] VITALS: BP 148/87
[2017-11-15] MEDS: D5 1/2NS w/KCl 40meq 1000ml 1,000 ML IV SCH (06:07)
[2017-11-15 08:00] VITALS: BP 151/97
[2017-11-15] MEDS: Docusate 100mg/10ml Liq NG SCH ×3 (08:41→17:08)
--- NOTE | 2017-11-15 10:26 | Nephrology Progress Note ---
Assessment/Plan Problem List: (1) Hypokalemia (2) Dementia (3) UTI (urinary tract infection) (4) Encephalopathy due to metabolic factor or toxin Assessment Severe Encephalopathy rapidly progressive dementia, ? Encephalitis Generalized weakness Hypokalemia UTI (urinary tract infection) Dementia hypokalemia Plan NPO except meds- tube feeding IV fluid Adjust mind altering meds start PO when more awake discussed with RN due transfer to a higher level of care ? NGT ? higher level care? Subjective ROS Limited/Unobtainable: Yes Objective Objective Last 24 Hour Vital Signs Date Time Temp Pulse Resp B/P (MAP) Pulse Ox O2 Delivery O2 Flow Rate FiO2 11/15/17 09:00 Room Air 11/15/17 08:00 87 11/15/17 08:00 99.1 71 20 151/97 (115) 97 99.1 11/15/17 04:00 73 11/15/17 04:00 98.4 73 24 148/87 (107) 100 98.4 11/15/17 00:00 97.2 88 23 147/42 (77) 98 97.2 11/15/17 00:00 87 11/14/17 21:00 Room Air 11/14/17 20:00 78 11/14/17 20:00 98.2 74 21 140/76 (97) 95 98.2 11/14/17 16:00 97.9 71 20 152/90 (110) 95 97.9 11/14/17 16:00 67 11/14/17 12:00 65 11/14/17 11:55 97.5 60 18 148/77 (100) 96 97.5 Intake and Output 11/14/17 11/15/17 19:00 07:00 Intake Total 570 ml 1270 ml Output Total 250 ml Balance 320 ml 1270 ml Free Water 40 ml 140 ml IV Total 400 ml 500 ml Tube Feeding 130 ml 630 ml Output Urine Total 250 ml Height (Feet): 5 Height (Inches): 7.00 Weight (Pounds): 147 General Appearance: no apparent distress EENT: other - now has NGT Cardiovascular: normal rate Respiratory/Chest: decreased breath sounds Abdomen: soft Neurologic: other - non responsive except to pain Objective no other change Nahum Connolly MD Nov 15, 2017 10:26
--- NOTE | 2017-11-15 11:20 | General Progress Note ---
Assessment/Plan Assessment/Plan Assessment/Plan Problems: (1) Encephalopathy due to metabolic factor or toxin- dysphagia SNOMED: 779934626 (2) Constipation ICD Codes: K59.00 - Constipation, unspecified SNOMED: 90689885 (3) Altered level of consciousness ICD Codes: R40.4 - Transient alteration of awareness SNOMED: 5915188 (4) Dementia ICD Codes: F03.90 - Unspecified dementia without behavioral disturbance SNOMED: 50023374 (5) Generalized weakness ICD Codes: R53.1 - Weakness SNOMED: 10706119 Status: stable Assessment/Plan supportive care at this time, follow up psych recs NGT Feeds Neurology f/u bowel regime >> colace + miralax ppi zofran prn fu labs may need PEG if no improvement in mental status Subjective Allergies: Coded Allergies: IODINE (Verified Allergy, Unknown, 11/10/17) Subjective above noted d/w RN patient nonverbal tolerating feeds Objective Last 24 Hour Vital Signs Date Time Temp Pulse Resp B/P (MAP) Pulse Ox O2 Delivery O2 Flow Rate FiO2 11/15/17 09:00 Room Air 11/15/17 08:00 87 11/15/17 08:00 99.1 71 20 151/97 (115) 97 99.1 11/15/17 04:00 73 11/15/17 04:00 98.4 73 24 148/87 (107) 100 98.4 11/15/17 00:00 97.2 88 23 147/42 (77) 98 97.2 11/15/17 00:00 87 11/14/17 21:00 Room Air 11/14/17 20:00 78 11/14/17 20:00 98.2 74 21 140/76 (97) 95 98.2 11/14/17 16:00 97.9 71 20 152/90 (110) 95 97.9 11/14/17 16:00 67 11/14/17 12:00 65 11/14/17 11:55 97.5 60 18 148/77 (100) 96 97.5 Intake and Output 11/14/17 11/15/17 19:00 07:00 Intake Total 570 ml 1270 ml Output Total 250 ml Balance 320 ml 1270 ml Free Water 40 ml 140 ml IV Total 400 ml 500 ml Tube Feeding 130 ml 630 ml Output Urine Total 250 ml Laboratory Tests 11/15/17 10:44: C-Reactive Protein, Quantitative 1.0H Height (Feet): 5 Height (Inches): 7.00 Weight (Pounds): 147 Objective Elderly WW NCAT supple CTA RRR Abd soft NT ND no edema OBS Marshal Jin MD Nov 15, 2017 11:20
[2017-11-15 12:00] VITALS: BP 127/74
--- NOTE | 2017-11-15 14:08 | Infectious Diseases Prog Note ---
Assessment/Plan Assessment/Plan A; Pyuria, doubt UTI Altered mental status Dementia, rapidly progressive P; Waiting for LP Family wants transfer to [facility] Case was D/W & Dr. Amos will order west nile virus IgM in CSF Subjective ROS Limited/Unobtainable: Yes Allergies: Coded Allergies: IODINE (Verified Allergy, Unknown, 11/10/17) Objective Vital Signs Last 24 Hour Vital Signs Date Time Temp Pulse Resp B/P (MAP) Pulse Ox O2 Delivery O2 Flow Rate FiO2 11/15/17 12:00 92 11/15/17 12:00 97.7 89 20 127/74 (91) 96 97.7 11/15/17 09:00 Room Air 11/15/17 08:00 87 11/15/17 08:00 99.1 71 20 151/97 (115) 97 99.1 11/15/17 04:00 73 11/15/17 04:00 98.4 73 24 148/87 (107) 100 98.4 11/15/17 00:00 97.2 88 23 147/42 (77) 98 97.2 11/15/17 00:00 87 11/14/17 21:00 Room Air 11/14/17 20:00 78 11/14/17 20:00 98.2 74 21 140/76 (97) 95 98.2 11/14/17 16:00 97.9 71 20 152/90 (110) 95 97.9 11/14/17 16:00 67 Height (Feet): 5 Height (Inches): 7.00 Weight (Pounds): 147 General Appearance: no acute distress HEENT: mucous membranes moist Respiratory/Chest: lungs clear Cardiovascular: normal rate Abdomen: soft, non tender, other - NGTube feeding Extremities: no edema Neurologic/Psychiatric: other - mostly sleeping Laboratory Tests Test 11/15/17 10:44 C-Reactive Protein, Quantitative 1.0 mg/dL (0.00-0.90) H Current Medications Medications (Trade) Dose Ordered Sig/Claritza Route PRN Reason Start Time Stop Time Status Last Admin Dose Admin Acetaminophen (Tylenol) 650 mg Q4H PRN ORAL Mild Pain/Temp > 100.5 11/10/17 23:30 12/10/17 23:29 11/15/17 13:01 Bisacodyl (Dulcolax) 10 mg NEEDED PRN RECTAL Constipation 11/10/17 23:45 12/10/17 23:44 Clonidine HCl (Catapres Tab) 0.1 mg EVERY 6 HOURS PRN ORAL For High Blood Pressure 11/10/17 23:30 12/10/17 23:29 Dextrose/ Electrolytes 1,000 ml @ 50 mls/hr Q20H IV 11/13/17 15:00 12/13/17 14:59 11/15/17 06:07 Docusate Sodium (Colace) 100 mg THREE TIMES A DAY NG 11/13/17 18:00 12/13/17 17:59 11/15/17 13:01 Famotidine (Pepcid I.v.) 20 mg Q12HR IVP 11/12/17 21:00 12/12/17 20:59 11/15/17 08:41 Lorazepam (Ativan) 1 mg Q6H PRN NG For Anxiety 11/15/17 10:34 11/19/17 10:33 Polyethylene Glycol (Miralax) 17 gm BEDTIME ORAL 11/12/17 21:00 12/12/17 20:59 11/14/17 21:46 Risperidone (RisperDAL) 1 mg BEDTIME PRN ORAL agitation 11/13/17 21:00 12/13/17 20:59 Kevon Thurston MD Nov 15, 2017 14:08
--- NOTE | 2017-11-15 15:10 | Neurology Progress Note ---
Interim History Interim History Interim History Ms. Ortega is poorly responsive. She only wakes up on deep pain. When she does wake up she moans and groans. She is severely cognitively impoverished. She is motorically challenged. A LP was attempted on 11/13/17 but she was moving constantly and thus the radiologist was unable to perform it. There has been no significant change in her condition. Review of Systems Neuro Review of Systems Unable to obtain Objective Physical Exam Last Vital Signs Date Time Temp Pulse Resp B/P (MAP) Pulse Ox O2 Delivery O2 Flow Rate FiO2 11/15/17 12:00 92 11/15/17 12:00 97.7 20 127/74 (91) 96 97.7 11/15/17 09:00 Room Air Laboratory Tests Test 11/15/17 10:44 C-Reactive Protein, Quantitative 1.0 mg/dL (0.00-0.90) H Neurologic Exam Objective PHYSICAL EXAMINATION: GENERAL: She is a well-developed, well-nourished, black lady, lying in bed, in no acute distress. HEAD: Normocephalic and atraumatic. EENT: Examination benign. NECK: She exhibited significant neck rigidity in all directions. NEUROLOGIC EXAMINATION: MENTAL STATUS EXAMINATION: She only responded deep painful stimuli with arousal. She only moaned and groaned and withdrew the appropriate extremity, but did not respond in any other way. Further mental status testing was impossible. SPEECH: Could not be tested. LANGUAGE: Could not be tested. CRANIAL NERVE EXAMINATION: II: She did not blink to threat. III, IV & : The external ocular movements were present on oculocephalic maneuvers. The pupils were 3 mm in diameter, equal, round, regular, and reactive sluggishly to light. V & VII: The corneal reflexes were present and symmetrical bilaterally. VIII: She did not respond to sounds and had no nystagmus. IX & X: The gag reflex was not tested. XI: The sternocleidomastoids and trapezii did function. XII: The tongue was in the midline. MOTOR SYSTEM: The tone was increased in all four extremities with gegenhalten. Examination of muscle mass revealed generalized muscle wasting. Examination of power was impossible to perform because even on applying deep painful stimuli only nonpurposeful withdrawal of the extremity was made. SENSORY EXAMINATION: She responded minimally to deep pain with withdrawal of the appropriate extremity. REFLEXES: 1+ and bilaterally symmetrical at the biceps, triceps, brachioradialis , and knees, 0 at both ankles. The plantar responses were extensor bilaterally. COORDINATION, STANCE & GAIT: Could not be tested. Impression/Recommendations Diagnostic Impression 1. Ms. Erica Ortega is a 72-year-old, black lady, of unknown handedness, who does have a past history of dementia and behavioral problems who was hospitalized for an alteration in her mental state. Of note is that, she was recently started on Nuedexta for behavioral problems. On being evaluated in the emergency room, she was noted to have a urinary tract infection and is on antibiotics for it. 2. As per Dr. Duke, her psychiatrist, she was worked up at [facility] [employer] for a rapidly progressive dementia and there was a question as to whether she had an encephalitis. However no LP was done. 3. I had a chance to talk to her and brother and sister. They tell me she was a normally functioning person until July 2017. In August 2017 she had to be hospitalized for language problems, confusion, behavioral problems, episodes of fear, and loss of ability to walk. 4. She is poorly responsive. She only wakes up on deep pain. When she does wake up she moans and groans. She is severely cognitively impoverished. She is motorically challenged. A LP was attempted on 11/13/17 but she was moving constantly and thus the radiologist was unable to perform it. There has been no significant change in her condition. 5. On neurological examination, at this time, she exhibits neck rigidity in all directions. She only wakes up momentarily on deep painful stimuli. She only moans and groans and withdraws the appropriate extremity on deep painful stimuli. She however does not demonstrate any focal or lateralizing neurological findings. 6. A CT scan of the brain performed on 11/10/2017 reveals atrophy and deep white matter changes, but no acute pathology. 7. Laboratory data revealed a relatively normal CBC. The chemistry panel revealed a low potassium at 2.8, a high chloride at 111 and an elevated glucose of 123. Her B12 level is normal at 460. Her folate was normal at 10.3 and her TSH was normal at 0.746. Her urinalysis however was abnormal with 1+ leukocyte esterase, 5-10 RBCs, 2-4 WBCs with few urinary bacteria. 8. The patient's history, neurological examination, laboratory data, and imaging studies are most compatible with a rapidly progressive dementia which has not been worked up thoroughly at this time. Recommendations 1. Continue present management. 2. Her family wants to transfer her to for further management however no bed is available. 3. A LP will be reordered for 11/16/17 to be done at [facility] and the CSF should be sent for indolent infectious processes and the CJD Protein 14-3-3. 4. She should also be worked up for anti NMDA receptor encephalitis. 5. An MRI with volumetric analysis and a brain PET may also be useful. 6. Once an accurate diagnosis is made then further management plans can be made. Jyoti Amos M.D., M.S.JYOTI SCHAFER Nov 15, 2017 15:10
[2017-11-15] MEDS: LORazepam Inj 2mg/ml 1ml IV SCH (15:16)
[2017-11-15 16:00] VITALS: BP 109/98
[2017-11-15 20:00] VITALS: BP 142/75
--- NOTE | 2017-11-15 21:08 | General Progress Note ---
Assessment/Plan Problem List: (1) Hypokalemia ICD Codes: E87.6 - Hypokalemia SNOMED: 16330748 (2) Dementia ICD Codes: F03.90 - Unspecified dementia without behavioral disturbance SNOMED: 76169343 (3) Altered level of consciousness ICD Codes: R40.4 - Transient alteration of awareness SNOMED: 1128547 (4) Encephalopathy due to metabolic factor or toxin SNOMED: 942856025 Status: stable Assessment/Plan transfer to [facility] per dopa request is already in the system LP -PER dr delarosa and dr santo caceresnt do LP was agitated afebrile dementia and psychosis Subjective ROS Limited/Unobtainable: Yes Allergies: Coded Allergies: IODINE (Verified Allergy, Unknown, 11/10/17) Subjective waxing and waning mental state agitated Objective Last 24 Hour Vital Signs Date Time Temp Pulse Resp B/P (MAP) Pulse Ox O2 Delivery O2 Flow Rate FiO2 11/15/17 16:00 98.9 78 20 109/98 (102) 98 98.9 11/15/17 12:00 92 11/15/17 12:00 97.7 89 20 127/74 (91) 96 97.7 11/15/17 09:00 Room Air 11/15/17 08:00 87 11/15/17 08:00 99.1 71 20 151/97 (115) 97 99.1 11/15/17 04:00 73 11/15/17 04:00 98.4 73 24 148/87 (107) 100 98.4 11/15/17 00:00 97.2 88 23 147/42 (77) 98 97.2 11/15/17 00:00 87 Intake and Output 11/14/17 11/15/17 19:00 07:00 Intake Total 570 ml 1270 ml Output Total 250 ml Balance 320 ml 1270 ml Free Water 40 ml 140 ml IV Total 400 ml 500 ml Tube Feeding 130 ml 630 ml Output Urine Total 250 ml Laboratory Tests 11/15/17 10:44: C-Reactive Protein, Quantitative 1.0H 11/15/17 11:30: West Nile Virus IgM Antibody [Pending] Height (Feet): 5 Height (Inches): 7.00 Weight (Pounds): 147 Sampson Leggett MD Nov 15, 2017 21:08
[2017-11-15] MEDS: Miralax 17gm pkt ORAL SCH (21:27)
--- NOTE | 2017-11-15 21:27 | General Progress Note ---
Assessment/Plan Problem List: (1) Encephalopathy due to metabolic factor or toxin SNOMED: 048016489 Assessment/Plan decrease ativan risperdal 1mg qhs Subjective Date patient seen: Nov 15, 2017 Neurologic/Psychiatric: Reports: anxiety, depressed Allergies: Coded Allergies: IODINE (Verified Allergy, Unknown, 11/10/17) Objective Last 24 Hour Vital Signs Date Time Temp Pulse Resp B/P (MAP) Pulse Ox O2 Delivery O2 Flow Rate FiO2 11/15/17 16:00 98.9 78 20 109/98 (102) 98 98.9 11/15/17 12:00 92 11/15/17 12:00 97.7 89 20 127/74 (91) 96 97.7 11/15/17 09:00 Room Air 11/15/17 08:00 87 11/15/17 08:00 99.1 71 20 151/97 (115) 97 99.1 11/15/17 04:00 73 11/15/17 04:00 98.4 73 24 148/87 (107) 100 98.4 11/15/17 00:00 97.2 88 23 147/42 (77) 98 97.2 11/15/17 00:00 87 Intake and Output 11/14/17 11/15/17 19:00 07:00 Intake Total 570 ml 1270 ml Output Total 250 ml Balance 320 ml 1270 ml Free Water 40 ml 140 ml IV Total 400 ml 500 ml Tube Feeding 130 ml 630 ml Output Urine Total 250 ml Laboratory Tests 11/15/17 10:44: C-Reactive Protein, Quantitative 1.0H 11/15/17 11:30: West Nile Virus IgM Antibody [Pending] Height (Feet): 5 Height (Inches): 7.00 Weight (Pounds): 147 Ramon Duke MD Nov 15, 2017 21:27
[2017-11-15] MEDS: LORazepam 1mg tab NG PRN (21:32)
[2017-11-16] VITALS: BP 121/50
[2017-11-16] MEDS: D5 1/2NS w/KCl 40meq 1000ml 1,000 ML IV SCH ×2 (02:28→20:43)
[2017-11-16 04:00] VITALS: BP 133/88
[2017-11-16] MEDS: LORazepam 1mg tab NG PRN ×2 (05:10→16:48)
[2017-11-16 05:28] LABS: BASOPHILS % (AUTO) 0.8 % (0.0-2.0); HEMATOCRIT 44.4 % (37.0-47.0); HEMOGLOBIN 14.3 G/DL (12.0-16.0); LYMPHOCYTES % (AUTO) 21.8 % (20.0-45.0); MEAN CORPUSCULAR VOLUME 85 FL (80-99); MONOCYTES % (AUTO) 9.6 % (1.0-10.0); NEUTROPHILS % (AUTO) 64.9 % (45.0-75.0); PLATELET COUNT 151 K/UL (150-450); RED CELL DISTRIBUTION WIDTH 15.4 % (11.6-14.8); WHITE BLOOD COUNT 6.7 K/UL (4.8-10.8)
[2017-11-16 06:03] LABS: ALANINE AMINOTRANSFERASE 27 U/L (12-78); ALBUMIN 3.2 G/DL (3.4-5.0); ALBUMIN/GLOBULIN RATIO 0.9 (1.0-2.7); ALKALINE PHOSPHATASE 69 U/L (46-116); ANION GAP 8 mmol/L (5-15); ASPARTATE AMINO TRANSFERASE 24 U/L (15-37); BILIRUBIN,TOTAL 0.5 MG/DL (0.2-1.0); BLOOD UREA NITROGEN 11 mg/dL (7-18); CALCIUM 9.8 MG/DL (8.5-10.1); CARBON DIOXIDE 24 MMOL/L (21-32); CHLORIDE 109 MMOL/L (98-107); CREATININE 0.8 MG/DL (0.55-1.30); PHOSPHORUS 3.3 MG/DL (2.5-4.9); POTASSIUM 4.7 MMOL/L (3.5-5.1); SODIUM 140 MMOL/L (136-145)
[2017-11-16 08:00] VITALS: BP 148/69
[2017-11-16] MEDS: Docusate 100mg/10ml Liq NG SCH ×3 (08:46→17:25)
--- NOTE | 2017-11-16 10:56 | GI Progress Note ---
Assessment/Plan Problems: (1) Encephalopathy due to metabolic factor or toxin SNOMED: 591161072 (2) Constipation ICD Codes: K59.00 - Constipation, unspecified SNOMED: 72257067 (3) Altered level of consciousness ICD Codes: R40.4 - Transient alteration of awareness SNOMED: 9311987 (4) Dementia ICD Codes: F03.90 - Unspecified dementia without behavioral disturbance SNOMED: 47706116 (5) Generalized weakness ICD Codes: R53.1 - Weakness SNOMED: 38229790 Status: unchanged Status Narrative Discussed with Dr. Doan. Assessment/Plan supportive care at this time, follow up psych recs NGT Feeds Neurology f/u bowel regime >> colace + miralax ppi zofran prn fu labs will proceed with PEG. - NPO @ CT. - hold all blood thinners tonight. The patient was seen and examined at bedside and all new and available data was reviewed in the patients chart. I agree with the above findings, impression and plan. (Patient seen earlier today. Signature stamp does not reflect patient encounter time.). - Thang Doan MD Subjective Subjective limited Objective Last 24 Hour Vital Signs Date Time Temp Pulse Resp B/P (MAP) Pulse Ox O2 Delivery O2 Flow Rate FiO2 11/16/17 09:00 Room Air 11/16/17 09:00 Room Air 11/16/17 08:00 74 11/16/17 08:00 98.2 83 20 148/69 (95) 94 98.2 11/16/17 04:15 94 11/16/17 04:00 97.9 90 24 133/88 (103) 97 97.9 11/16/17 00:00 97.7 83 20 121/50 (73) 97 97.7 11/15/17 23:30 85 11/15/17 21:00 Room Air 11/15/17 20:00 98.2 80 24 142/75 (97) 98 98.2 11/15/17 19:04 89 11/15/17 16:00 98.9 78 20 109/98 (102) 98 98.9 11/15/17 12:00 92 11/15/17 12:00 97.7 89 20 127/74 (91) 96 97.7 Intake and Output 11/15/17 11/16/17 19:00 07:00 Intake Total 1205 ml 440 ml Output Total 850 ml 600 ml Balance 355 ml -160 ml Intake Oral 200 ml Free Water 65 ml 20 ml IV Total 600 ml Tube Feeding 340 ml 120 ml Other 300 ml Output Urine Total 850 ml 600 ml # Voids 6 # Bowel Movements 2 Laboratory Tests Test 11/15/17 11:30 11/16/17 04:55 West Nile Virus IgM Antibody Pending White Blood Count 6.7 K/UL (4.8-10.8) Red Blood Count 5.20 M/UL (4.20-5.40) Hemoglobin 14.3 G/DL (12.0-16.0) Hematocrit 44.4 % (37.0-47.0) Mean Corpuscular Volume 85 FL (80-99) Mean Corpuscular Hemoglobin 27.4 PG (27.0-31.0) Mean Corpuscular Hemoglobin Concent 32.1 G/DL (32.0-36.0) Red Cell Distribution Width 15.4 % (11.6-14.8) H Platelet Count 151 K/UL (150-450) Mean Platelet Volume 8.1 FL (6.5-10.1) Neutrophils (%) (Auto) 64.9 % (45.0-75.0) Lymphocytes (%) (Auto) 21.8 % (20.0-45.0) Monocytes (%) (Auto) 9.6 % (1.0-10.0) Eosinophils (%) (Auto) 3.0 % (0.0-3.0) Basophils (%) (Auto) 0.8 % (0.0-2.0) Sodium Level 140 MMOL/L (136-145) Potassium Level 4.7 MMOL/L (3.5-5.1) Chloride Level 109 MMOL/L (98-107) H Carbon Dioxide Level 24 MMOL/L (21-32) Anion Gap 8 mmol/L (5-15) Blood Urea Nitrogen 11 mg/dL (7-18) Creatinine 0.8 MG/DL (0.55-1.30) Estimat Glomerular Filtration Rate > 60 mL/min (>60) Glucose Level 127 MG/DL (74-106) H Calcium Level 9.8 MG/DL (8.5-10.1) Phosphorus Level 3.3 MG/DL (2.5-4.9) Magnesium Level 2.2 MG/DL (1.8-2.4) Total Bilirubin 0.5 MG/DL (0.2-1.0) Aspartate Amino Transf (AST/SGOT) 24 U/L (15-37) Alanine Aminotransferase (ALT/SGPT) 27 U/L (12-78) Alkaline Phosphatase 69 U/L (46-116) Pro-B-Type Natriuretic Peptide 1471 pg/mL (0-125) H Total Protein 6.9 G/DL (6.4-8.2) Albumin 3.2 G/DL (3.4-5.0) L Globulin 3.7 g/dL Albumin/Globulin Ratio 0.9 (1.0-2.7) L Height (Feet): 5 Height (Inches): 7.00 Weight (Pounds): 147 General Appearance: lethargic Cardiovascular: normal rate Respiratory/Chest: no respiratory distress Abdominal Exam: soft Lynette Colon NP Nov 16, 2017 10:56
--- NOTE | 2017-11-16 11:10 | General Progress Note ---
Assessment/Plan Problem List: (1) Encephalopathy due to metabolic factor or toxin SNOMED: 354222447 Assessment/Plan decrease ativan change risperdal 1mg qhs to prn Subjective Date patient seen: Nov 16, 2017 Neurologic/Psychiatric: Reports: anxiety Allergies: Coded Allergies: IODINE (Verified Allergy, Unknown, 11/10/17) Subjective the pt cont to be agitated. radiology attempted to do LP five times thursday but was unsuccessful due to "bone structure" Objective Last 24 Hour Vital Signs Date Time Temp Pulse Resp B/P (MAP) Pulse Ox O2 Delivery O2 Flow Rate FiO2 11/16/17 09:00 Room Air 11/16/17 09:00 Room Air 11/16/17 08:00 74 11/16/17 08:00 98.2 83 20 148/69 (95) 94 98.2 11/16/17 04:15 94 11/16/17 04:00 97.9 90 24 133/88 (103) 97 97.9 11/16/17 00:00 97.7 83 20 121/50 (73) 97 97.7 11/15/17 23:30 85 11/15/17 21:00 Room Air 11/15/17 20:00 98.2 80 24 142/75 (97) 98 98.2 11/15/17 19:04 89 11/15/17 16:00 98.9 78 20 109/98 (102) 98 98.9 11/15/17 12:00 92 11/15/17 12:00 97.7 89 20 127/74 (91) 96 97.7 Intake and Output 11/15/17 11/16/17 19:00 07:00 Intake Total 1205 ml 440 ml Output Total 850 ml 600 ml Balance 355 ml -160 ml Intake Oral 200 ml Free Water 65 ml 20 ml IV Total 600 ml Tube Feeding 340 ml 120 ml Other 300 ml Output Urine Total 850 ml 600 ml # Voids 6 # Bowel Movements 2 Laboratory Tests 11/15/17 11:30: West Nile Virus IgM Antibody [Pending] 11/16/17 04:55: White Blood Count 6.7, Red Blood Count 5.20, Hemoglobin 14.3, Hematocrit 44.4, Mean Corpuscular Volume 85, Mean Corpuscular Hemoglobin 27.4, Mean Corpuscular Hemoglobin Concent 32.1, Red Cell Distribution Width 15.4H, Platelet Count 151, Mean Platelet Volume 8.1, Neutrophils (%) (Auto) 64.9, Lymphocytes (%) (Auto) 21.8, Monocytes (%) (Auto) 9.6, Eosinophils (%) (Auto) 3.0, Basophils (%) (Auto ) 0.8, Sodium Level 140, Potassium Level 4.7, Chloride Level 109H, Carbon Dioxide Level 24, Anion Gap 8, Blood Urea Nitrogen 11, Creatinine 0.8, Estimat Glomerular Filtration Rate > 60, Glucose Level 127H, Calcium Level 9.8, Phosphorus Level 3.3, Magnesium Level 2.2, Total Bilirubin 0.5, Aspartate Amino Transf (AST/SGOT) 24, Alanine Aminotransferase (ALT/SGPT) 27, Alkaline Phosphatase 69, Pro-B-Type Natriuretic Peptide 1471H, Total Protein 6.9, Albumin 3.2L, Globulin 3.7, Albumin/Globulin Ratio 0.9L Height (Feet): 5 Height (Inches): 7.00 Weight (Pounds): 147 General Appearance: lethargic, confused, agitated Ramon Duke MD Nov 16, 2017 11:10
[2017-11-16 12:00] VITALS: BP 145/82
--- NOTE | 2017-11-16 12:07 | Nephrology Progress Note ---
Assessment/Plan Problem List: (1) Hypokalemia (2) Dementia (3) UTI (urinary tract infection) (4) Encephalopathy due to metabolic factor or toxin Assessment Severe Encephalopathy rapidly progressive dementia, ? Encephalitis Generalized weakness Hypokalemia UTI (urinary tract infection) Dementia hypokalemia Plan NPO except meds- tube feeding IV fluid Adjust mind altering meds start PO when more awake discussed with RN due transfer to a higher level of care ? NGT ? higher level care? Subjective ROS Limited/Unobtainable: No Objective Objective Last 24 Hour Vital Signs Date Time Temp Pulse Resp B/P (MAP) Pulse Ox O2 Delivery O2 Flow Rate FiO2 11/16/17 09:00 Room Air 11/16/17 09:00 Room Air 11/16/17 08:00 74 11/16/17 08:00 98.2 83 20 148/69 (95) 94 98.2 11/16/17 04:15 94 11/16/17 04:00 97.9 90 24 133/88 (103) 97 97.9 11/16/17 00:00 97.7 83 20 121/50 (73) 97 97.7 11/15/17 23:30 85 11/15/17 21:00 Room Air 11/15/17 20:00 98.2 80 24 142/75 (97) 98 98.2 11/15/17 19:04 89 11/15/17 16:00 98.9 78 20 109/98 (102) 98 98.9 Intake and Output 11/15/17 11/16/17 19:00 07:00 Intake Total 1205 ml 440 ml Output Total 850 ml 600 ml Balance 355 ml -160 ml Intake Oral 200 ml Free Water 65 ml 20 ml IV Total 600 ml Tube Feeding 340 ml 120 ml Other 300 ml Output Urine Total 850 ml 600 ml # Voids 6 # Bowel Movements 2 Laboratory Tests 11/16/17 04:55: White Blood Count 6.7, Red Blood Count 5.20, Hemoglobin 14.3, Hematocrit 44.4, Mean Corpuscular Volume 85, Mean Corpuscular Hemoglobin 27.4, Mean Corpuscular Hemoglobin Concent 32.1, Red Cell Distribution Width 15.4H, Platelet Count 151, Mean Platelet Volume 8.1, Neutrophils (%) (Auto) 64.9, Lymphocytes (%) (Auto) 21.8, Monocytes (%) (Auto) 9.6, Eosinophils (%) (Auto) 3.0, Basophils (%) (Auto ) 0.8, Sodium Level 140, Potassium Level 4.7, Chloride Level 109H, Carbon Dioxide Level 24, Anion Gap 8, Blood Urea Nitrogen 11, Creatinine 0.8, Estimat Glomerular Filtration Rate > 60, Glucose Level 127H, Calcium Level 9.8, Phosphorus Level 3.3, Magnesium Level 2.2, Total Bilirubin 0.5, Aspartate Amino Transf (AST/SGOT) 24, Alanine Aminotransferase (ALT/SGPT) 27, Alkaline Phosphatase 69, Pro-B-Type Natriuretic Peptide 1471H, Total Protein 6.9, Albumin 3.2L, Globulin 3.7, Albumin/Globulin Ratio 0.9L Height (Feet): 5 Height (Inches): 7.00 Weight (Pounds): 147 General Appearance: no apparent distress Cardiovascular: normal rate Respiratory/Chest: decreased breath sounds Abdomen: soft Objective no other change Nahum Connolly MD Nov 16, 2017 12:07
--- NOTE | 2017-11-16 12:45 | General Progress Note ---
Assessment/Plan Problem List: (1) Hypokalemia ICD Codes: E87.6 - Hypokalemia SNOMED: 37595359 (2) Dementia ICD Codes: F03.90 - Unspecified dementia without behavioral disturbance SNOMED: 39815182 (3) Altered level of consciousness ICD Codes: R40.4 - Transient alteration of awareness SNOMED: 4085227 (4) Encephalopathy due to metabolic factor or toxin SNOMED: 092288248 Status: progressing Assessment/Plan transfer to [facility] per dopa request is already in the system LP is ordered to see if we can get diagnosis for her ams afebrile abx per id psychosis and obs Subjective ROS Limited/Unobtainable: Yes Allergies: Coded Allergies: IODINE (Verified Allergy, Unknown, 11/10/17) Subjective waxing and waning mental state agitated Objective Last 24 Hour Vital Signs Date Time Temp Pulse Resp B/P (MAP) Pulse Ox O2 Delivery O2 Flow Rate FiO2 11/16/17 09:00 Room Air 11/16/17 09:00 Room Air 11/16/17 08:00 74 11/16/17 08:00 98.2 83 20 148/69 (95) 94 98.2 11/16/17 04:15 94 11/16/17 04:00 97.9 90 24 133/88 (103) 97 97.9 11/16/17 00:00 97.7 83 20 121/50 (73) 97 97.7 11/15/17 23:30 85 11/15/17 21:00 Room Air 11/15/17 20:00 98.2 80 24 142/75 (97) 98 98.2 11/15/17 19:04 89 11/15/17 16:00 98.9 78 20 109/98 (102) 98 98.9 Intake and Output 11/15/17 11/16/17 19:00 07:00 Intake Total 1205 ml 440 ml Output Total 850 ml 600 ml Balance 355 ml -160 ml Intake Oral 200 ml Free Water 65 ml 20 ml IV Total 600 ml Tube Feeding 340 ml 120 ml Other 300 ml Output Urine Total 850 ml 600 ml # Voids 6 # Bowel Movements 2 Laboratory Tests 11/16/17 04:55: White Blood Count 6.7, Red Blood Count 5.20, Hemoglobin 14.3, Hematocrit 44.4, Mean Corpuscular Volume 85, Mean Corpuscular Hemoglobin 27.4, Mean Corpuscular Hemoglobin Concent 32.1, Red Cell Distribution Width 15.4H, Platelet Count 151, Mean Platelet Volume 8.1, Neutrophils (%) (Auto) 64.9, Lymphocytes (%) (Auto) 21.8, Monocytes (%) (Auto) 9.6, Eosinophils (%) (Auto) 3.0, Basophils (%) (Auto ) 0.8, Sodium Level 140, Potassium Level 4.7, Chloride Level 109H, Carbon Dioxide Level 24, Anion Gap 8, Blood Urea Nitrogen 11, Creatinine 0.8, Estimat Glomerular Filtration Rate > 60, Glucose Level 127H, Calcium Level 9.8, Phosphorus Level 3.3, Magnesium Level 2.2, Total Bilirubin 0.5, Aspartate Amino Transf (AST/SGOT) 24, Alanine Aminotransferase (ALT/SGPT) 27, Alkaline Phosphatase 69, Pro-B-Type Natriuretic Peptide 1471H, Total Protein 6.9, Albumin 3.2L, Globulin 3.7, Albumin/Globulin Ratio 0.9L Height (Feet): 5 Height (Inches): 7.00 Weight (Pounds): 147 General Appearance: lethargic, confused Cardiovascular: normal rate Respiratory/Chest: lungs clear Sampson Leggett MD Nov 16, 2017 12:45
--- NOTE | 2017-11-16 12:49 | Infectious Diseases Prog Note ---
Assessment/Plan Assessment/Plan A; Pyuria, doubt UTI Altered mental status Dementia, rapidly progressive P; Waiting for LP Family wants transfer to [facility] Subjective ROS Limited/Unobtainable: Yes Allergies: Coded Allergies: IODINE (Verified Allergy, Unknown, 11/10/17) Objective Vital Signs Last 24 Hour Vital Signs Date Time Temp Pulse Resp B/P (MAP) Pulse Ox O2 Delivery O2 Flow Rate FiO2 11/16/17 09:00 Room Air 11/16/17 09:00 Room Air 11/16/17 08:00 74 11/16/17 08:00 98.2 83 20 148/69 (95) 94 98.2 11/16/17 04:15 94 11/16/17 04:00 97.9 90 24 133/88 (103) 97 97.9 11/16/17 00:00 97.7 83 20 121/50 (73) 97 97.7 11/15/17 23:30 85 11/15/17 21:00 Room Air 11/15/17 20:00 98.2 80 24 142/75 (97) 98 98.2 11/15/17 19:04 89 11/15/17 16:00 98.9 78 20 109/98 (102) 98 98.9 Height (Feet): 5 Height (Inches): 7.00 Weight (Pounds): 147 General Appearance: no acute distress HEENT: mucous membranes moist Respiratory/Chest: lungs clear Cardiovascular: normal rate Abdomen: soft, non tender, other - NG tube feeding Extremities: no edema Neurologic/Psychiatric: unresponsiveness Laboratory Tests Test 11/16/17 04:55 White Blood Count 6.7 K/UL (4.8-10.8) Red Blood Count 5.20 M/UL (4.20-5.40) Hemoglobin 14.3 G/DL (12.0-16.0) Hematocrit 44.4 % (37.0-47.0) Mean Corpuscular Volume 85 FL (80-99) Mean Corpuscular Hemoglobin 27.4 PG (27.0-31.0) Mean Corpuscular Hemoglobin Concent 32.1 G/DL (32.0-36.0) Red Cell Distribution Width 15.4 % (11.6-14.8) H Platelet Count 151 K/UL (150-450) Mean Platelet Volume 8.1 FL (6.5-10.1) Neutrophils (%) (Auto) 64.9 % (45.0-75.0) Lymphocytes (%) (Auto) 21.8 % (20.0-45.0) Monocytes (%) (Auto) 9.6 % (1.0-10.0) Eosinophils (%) (Auto) 3.0 % (0.0-3.0) Basophils (%) (Auto) 0.8 % (0.0-2.0) Sodium Level 140 MMOL/L (136-145) Potassium Level 4.7 MMOL/L (3.5-5.1) Chloride Level 109 MMOL/L (98-107) H Carbon Dioxide Level 24 MMOL/L (21-32) Anion Gap 8 mmol/L (5-15) Blood Urea Nitrogen 11 mg/dL (7-18) Creatinine 0.8 MG/DL (0.55-1.30) Estimat Glomerular Filtration Rate > 60 mL/min (>60) Glucose Level 127 MG/DL (74-106) H Calcium Level 9.8 MG/DL (8.5-10.1) Phosphorus Level 3.3 MG/DL (2.5-4.9) Magnesium Level 2.2 MG/DL (1.8-2.4) Total Bilirubin 0.5 MG/DL (0.2-1.0) Aspartate Amino Transf (AST/SGOT) 24 U/L (15-37) Alanine Aminotransferase (ALT/SGPT) 27 U/L (12-78) Alkaline Phosphatase 69 U/L (46-116) Pro-B-Type Natriuretic Peptide 1471 pg/mL (0-125) H Total Protein 6.9 G/DL (6.4-8.2) Albumin 3.2 G/DL (3.4-5.0) L Globulin 3.7 g/dL Albumin/Globulin Ratio 0.9 (1.0-2.7) L Current Medications Medications (Trade) Dose Ordered Sig/Claritza Route PRN Reason Start Time Stop Time Status Last Admin Dose Admin Acetaminophen (Tylenol) 650 mg Q4H PRN ORAL Mild Pain/Temp > 100.5 11/10/17 23:30 12/10/17 23:29 11/16/17 03:44 Bisacodyl (Dulcolax) 10 mg NEEDED PRN RECTAL Constipation 11/10/17 23:45 12/10/17 23:44 Cefoxitin Sodium 1 gm/Dextrose 55 ml @ 110 mls/hr ONCE IV 11/16/17 13:30 11/16/17 14:30 Clonidine HCl (Catapres Tab) 0.1 mg EVERY 6 HOURS PRN ORAL For High Blood Pressure 11/10/17 23:30 12/10/17 23:29 Dextrose/ Electrolytes 1,000 ml @ 50 mls/hr Q20H IV 11/13/17 15:00 12/13/17 14:59 11/16/17 02:28 Docusate Sodium (Colace) 100 mg THREE TIMES A DAY NG 11/13/17 18:00 12/13/17 17:59 11/16/17 08:46 Famotidine (Pepcid I.v.) 20 mg Q12HR IVP 11/12/17 21:00 12/12/17 20:59 11/16/17 08:46 Lorazepam (Ativan 2mg/ml 1ml) 2 mg ONCE IV 11/15/17 15:16 11/16/17 23:59 Lorazepam (Ativan) 1 mg Q6H PRN NG For Anxiety 11/15/17 10:34 11/19/17 10:33 11/16/17 05:10 Polyethylene Glycol (Miralax) 17 gm BEDTIME ORAL 11/12/17 21:00 12/12/17 20:59 11/15/17 21:27 Risperidone (RisperDAL) 1 mg BEDTIME PRN ORAL agitation 11/13/17 21:00 12/13/17 20:59 Kevon Thurston MD Nov 16, 2017 12:49
[2017-11-16] MEDS ORDERED: cefOXitin Sod 1 GM in D5W 55 ML IV SCH (13:30)
--- NOTE | 2017-11-16 15:13 | Cardiac Electrophysiology PN ---
Subjective Subjective [id number] Objective Last 24 Hour Vital Signs Date Time Temp Pulse Resp B/P (MAP) Pulse Ox O2 Delivery O2 Flow Rate FiO2 11/16/17 09:00 Room Air 11/16/17 09:00 Room Air 11/16/17 08:00 74 11/16/17 08:00 98.2 83 20 148/69 (95) 94 98.2 11/16/17 04:15 94 11/16/17 04:00 97.9 90 24 133/88 (103) 97 97.9 11/16/17 00:00 97.7 83 20 121/50 (73) 97 97.7 11/15/17 23:30 85 11/15/17 21:00 Room Air 11/15/17 20:00 98.2 80 24 142/75 (97) 98 98.2 11/15/17 19:04 89 11/15/17 16:00 98.9 78 20 109/98 (102) 98 98.9 Intake and Output 11/15/17 11/16/17 19:00 07:00 Intake Total 1205 ml 440 ml Output Total 850 ml 600 ml Balance 355 ml -160 ml Intake Oral 200 ml Free Water 65 ml 20 ml IV Total 600 ml Tube Feeding 340 ml 120 ml Other 300 ml Output Urine Total 850 ml 600 ml # Voids 6 # Bowel Movements 2 Laboratory Tests Test 11/16/17 04:55 White Blood Count 6.7 K/UL (4.8-10.8) Red Blood Count 5.20 M/UL (4.20-5.40) Hemoglobin 14.3 G/DL (12.0-16.0) Hematocrit 44.4 % (37.0-47.0) Mean Corpuscular Volume 85 FL (80-99) Mean Corpuscular Hemoglobin 27.4 PG (27.0-31.0) Mean Corpuscular Hemoglobin Concent 32.1 G/DL (32.0-36.0) Red Cell Distribution Width 15.4 % (11.6-14.8) H Platelet Count 151 K/UL (150-450) Mean Platelet Volume 8.1 FL (6.5-10.1) Neutrophils (%) (Auto) 64.9 % (45.0-75.0) Lymphocytes (%) (Auto) 21.8 % (20.0-45.0) Monocytes (%) (Auto) 9.6 % (1.0-10.0) Eosinophils (%) (Auto) 3.0 % (0.0-3.0) Basophils (%) (Auto) 0.8 % (0.0-2.0) Sodium Level 140 MMOL/L (136-145) Potassium Level 4.7 MMOL/L (3.5-5.1) Chloride Level 109 MMOL/L (98-107) H Carbon Dioxide Level 24 MMOL/L (21-32) Anion Gap 8 mmol/L (5-15) Blood Urea Nitrogen 11 mg/dL (7-18) Creatinine 0.8 MG/DL (0.55-1.30) Estimat Glomerular Filtration Rate > 60 mL/min (>60) Glucose Level 127 MG/DL (74-106) H Calcium Level 9.8 MG/DL (8.5-10.1) Phosphorus Level 3.3 MG/DL (2.5-4.9) Magnesium Level 2.2 MG/DL (1.8-2.4) Total Bilirubin 0.5 MG/DL (0.2-1.0) Aspartate Amino Transf (AST/SGOT) 24 U/L (15-37) Alanine Aminotransferase (ALT/SGPT) 27 U/L (12-78) Alkaline Phosphatase 69 U/L (46-116) Pro-B-Type Natriuretic Peptide 1471 pg/mL (0-125) H Total Protein 6.9 G/DL (6.4-8.2) Albumin 3.2 G/DL (3.4-5.0) L Globulin 3.7 g/dL Albumin/Globulin Ratio 0.9 (1.0-2.7) L Telly Gottlieb MD Nov 16, 2017 15:13
[2017-11-16] MEDS: LORazepam Inj 2mg/ml 1ml IV SCH (15:16)
[2017-11-16 16:00] VITALS: BP 145/99
--- NOTE | 2017-11-16 17:30 | Consultation ---
DATE OF CONSULTATION: 11/16/2017 CARDIOLOGY CONSULTATION CONSULTING PHYSICIAN: Telly Gottlieb M.D. REFERRING PHYSICIAN: Sampson Leggett M.D. REASON FOR CONSULTATION: Ventricular tachycardia. HISTORY OF PRESENT ILLNESS: The patient is a 72-year-old lady with history of dementia per that started in August of 2017. Per , the patient was able to drive car and quite independent until end of July. Till the last one month has become so confused and dementia has advanced so rapidly that the patient currently lives in a half-way. The patient was brought in for worsening of her mental status. The patient apparently had a recent hospitalization about two months ago at [facility] and was started on Nuedexta for behavioral problems. In the emergency room, the patient was found to have urinary tract infection and was admitted and was started on antibiotics. While on telemetry, the patient had runs of 6 beats of ventricular tachycardia. Cardiac electrophysiology consultation was obtained for further evaluation. PAST MEDICAL HISTORY: 1. Hypertension. 2. Dementia. FAMILY HISTORY: Noncontributory. SOCIAL HISTORY: She has no history of smoking or drinking. Was living with her up to 3 months ago. REVIEW OF SYSTEMS: Cannot be obtained. PHYSICAL EXAMINATION: VITAL SIGNS: Show blood pressure of 148/69, pulse 83, respirations 18, and temperature 98.2 degrees. HEAD AND NECK: Shows no jugular venous distention and has a NG-tube. LUNGS: Clear. CARDIOVASCULAR: Shows regular S1 and S2 with no gallop or murmur. ABDOMEN: Soft. EXTREMITIES: No pitting edema. LABORATORY AND DIAGNOSTIC DATA: Her EKG showed sinus rhythm with a T-wave abnormalities suggestive of inferior wall ischemia, left atrial enlargement, and left axis deviation. Telemetry strip showed 5 beats of ventricular tachycardia. Labs show white count of 6.7, hemoglobin of 14.2, hematocrit of 44.4, and platelet count of 151,000. Sodium of 140, potassium is 4.7, BUN of 11, creatinine 0.8, and glucose of 127. BNP is 1471. ASSESSMENT/PLAN: 1. Non-sustained ventricular tachycardia. The patient was ruled out for myocardial infarction. Her BNP, however, is more than 1400. We will get an echocardiogram to evaluate for ejection fraction and wall motion abnormality. 2. Hypokalemia, replaced. 3. Encephalopathy, metabolic versus toxic . Further evaluation by Dr. Dandre. 4. Urinary tract infection. 5. Dementia. 6. Dysphagia. The patient has a NG-tube. Currently, being followed up by Dr. Jin and Dr. Doan. The patient will be for percutaneous endoscopic gastrostomy placement. Thank you very much for allowing me to participate in the care of this patient. Please do not hesitate to contact me for any questions regarding my evaluation. Telly Gottlieb M.D. DR: NOEMI JOB#: [id number] CC:
[2017-11-16 20:00] VITALS: BP 122/72
--- NOTE | 2017-11-16 20:14 | Neurology Progress Note ---
Interim History Interim History Interim History Ms. Ortega is poorly responsive. She only wakes up on deep pain. When she does wake up she moans and groans. She is severely cognitively impoverished. She is motorically challenged. A LP was attempted on 11/13/17 but she was moving constantly and thus the radiologist was unable to perform it. A LP was re-attempted on 11/16/17 by the radiologist - unfortunately the SAS could not be entered. There has been no significant change in her condition. Review of Systems Neuro Review of Systems Unable to obtain Objective Physical Exam Last Vital Signs Date Time Temp Pulse Resp B/P (MAP) Pulse Ox O2 Delivery O2 Flow Rate FiO2 11/16/17 16:00 97.0 85 20 145/99 (114) 94 97.0 11/16/17 09:00 Room Air Laboratory Tests Test 11/16/17 04:55 White Blood Count 6.7 K/UL (4.8-10.8) Red Blood Count 5.20 M/UL (4.20-5.40) Hemoglobin 14.3 G/DL (12.0-16.0) Hematocrit 44.4 % (37.0-47.0) Mean Corpuscular Volume 85 FL (80-99) Mean Corpuscular Hemoglobin 27.4 PG (27.0-31.0) Mean Corpuscular Hemoglobin Concent 32.1 G/DL (32.0-36.0) Red Cell Distribution Width 15.4 % (11.6-14.8) H Platelet Count 151 K/UL (150-450) Mean Platelet Volume 8.1 FL (6.5-10.1) Neutrophils (%) (Auto) 64.9 % (45.0-75.0) Lymphocytes (%) (Auto) 21.8 % (20.0-45.0) Monocytes (%) (Auto) 9.6 % (1.0-10.0) Eosinophils (%) (Auto) 3.0 % (0.0-3.0) Basophils (%) (Auto) 0.8 % (0.0-2.0) Sodium Level 140 MMOL/L (136-145) Potassium Level 4.7 MMOL/L (3.5-5.1) Chloride Level 109 MMOL/L (98-107) H Carbon Dioxide Level 24 MMOL/L (21-32) Anion Gap 8 mmol/L (5-15) Blood Urea Nitrogen 11 mg/dL (7-18) Creatinine 0.8 MG/DL (0.55-1.30) Estimat Glomerular Filtration Rate > 60 mL/min (>60) Glucose Level 127 MG/DL (74-106) H Calcium Level 9.8 MG/DL (8.5-10.1) Phosphorus Level 3.3 MG/DL (2.5-4.9) Magnesium Level 2.2 MG/DL (1.8-2.4) Total Bilirubin 0.5 MG/DL (0.2-1.0) Aspartate Amino Transf (AST/SGOT) 24 U/L (15-37) Alanine Aminotransferase (ALT/SGPT) 27 U/L (12-78) Alkaline Phosphatase 69 U/L (46-116) Pro-B-Type Natriuretic Peptide 1471 pg/mL (0-125) H Total Protein 6.9 G/DL (6.4-8.2) Albumin 3.2 G/DL (3.4-5.0) L Globulin 3.7 g/dL Albumin/Globulin Ratio 0.9 (1.0-2.7) L Neurologic Exam Objective PHYSICAL EXAMINATION: GENERAL: She is a well-developed, well-nourished, black lady, lying in bed, in no acute distress. HEAD: Normocephalic and atraumatic. EENT: Examination benign. NECK: She exhibited significant neck rigidity in all directions. NEUROLOGIC EXAMINATION: MENTAL STATUS EXAMINATION: She only responded deep painful stimuli with arousal. She only moaned and groaned and withdrew the appropriate extremity, but did not respond in any other way. Further mental status testing was impossible. SPEECH: Could not be tested. LANGUAGE: Could not be tested. CRANIAL NERVE EXAMINATION: II: She did not blink to threat. III, IV & : The external ocular movements were present on oculocephalic maneuvers. The pupils were 3 mm in diameter, equal, round, regular, and reactive sluggishly to light. V & VII: The corneal reflexes were present and symmetrical bilaterally. VIII: She did not respond to sounds and had no nystagmus. IX & X: The gag reflex was not tested. XI: The sternocleidomastoids and trapezii did function. XII: The tongue was in the midline. MOTOR SYSTEM: The tone was increased in all four extremities with gegenhalten. Examination of muscle mass revealed generalized muscle wasting. Examination of power was impossible to perform because even on applying deep painful stimuli only nonpurposeful withdrawal of the extremity was made. SENSORY EXAMINATION: She responded minimally to deep pain with withdrawal of the appropriate extremity. REFLEXES: 1+ and bilaterally symmetrical at the biceps, triceps, brachioradialis , and knees, 0 at both ankles. The plantar responses were extensor bilaterally. COORDINATION, STANCE & GAIT: Could not be tested. Impression/Recommendations Diagnostic Impression 1. Ms. Erica Ortega is a 72-year-old, black lady, of unknown handedness, who does have a past history of dementia and behavioral problems who was hospitalized for an alteration in her mental state. Of note is that, she was recently started on Nuedexta for behavioral problems. On being evaluated in the emergency room, she was noted to have a urinary tract infection and is on antibiotics for it. 2. As per Dr. Duke, her psychiatrist, she was worked up at [facility] for a rapidly progressive dementia and there was a question as to whether she had an encephalitis. However no LP was done. 3. I had a chance to talk to her and brother and sister. They tell me she was a normally functioning person until July 2017. In August 2017 she had to be hospitalized for language problems, confusion, behavioral problems, episodes of fear, and loss of ability to walk. 4. She is poorly responsive. She only wakes up on deep pain. When she does wake up she moans and groans. She is severely cognitively impoverished. She is motorically challenged. A LP was attempted on 11/13/17 but she was moving constantly and thus the radiologist was unable to perform it. A LP was re- attempted on 11/16/17 by the radiologist - unfortunately the SAS could not be entered. There has been no significant change in her condition. 5. On neurological examination, at this time, she exhibits neck rigidity in all directions. She only wakes up momentarily on deep painful stimuli. She only moans and groans and withdraws the appropriate extremity on deep painful stimuli. She however does not demonstrate any focal or lateralizing neurological findings. 6. A CT scan of the brain performed on 11/10/2017 reveals atrophy and deep white matter changes, but no acute pathology. 7. Laboratory data revealed a relatively normal CBC. The chemistry panel revealed a low potassium at 2.8, a high chloride at 111 and an elevated glucose of 123. Her B12 level is normal at 460. Her folate was normal at 10.3 and her TSH was normal at 0.746. Her urinalysis however was abnormal with 1+ leukocyte esterase, 5-10 RBCs, 2-4 WBCs with few urinary bacteria. 8. The patient's history, neurological examination, laboratory data, and imaging studies are most compatible with a rapidly progressive dementia which has not been worked up thoroughly at this time. Recommendations 1. Continue present management. 2. Agree with transfer her to [facility] for further management. 3. She should also be worked up for anti NMDA receptor encephalitis. 4. An MRI with volumetric analysis and a brain PET may also be useful when she gets to [facility]. 5. Once an accurate diagnosis is made then further management plans can be made. Jyoti Amos M.D., M.S.P.JYOTI OTERO Nov 16, 2017 20:14
[2017-11-16] MEDS: Miralax 17gm pkt ORAL SCH (20:40)
[2017-11-17] VITALS: BP 158/88
[2017-11-17] MEDS: LORazepam 1mg tab NG PRN ×2 (02:28→12:07)
[2017-11-17 04:00] VITALS: BP 132/64
[2017-11-17 07:17] LABS: BASOPHILS % (AUTO) 0.7 % (0.0-2.0); EOSINOPHILS % (AUTO) 1.2 % (0.0-3.0); HEMATOCRIT 41.8 % (37.0-47.0); HEMOGLOBIN 13.4 G/DL (12.0-16.0); LYMPHOCYTES % (AUTO) 18.6 % (20.0-45.0); MEAN CORPUSCULAR VOLUME 85 FL (80-99); MONOCYTES % (AUTO) 9.3 % (1.0-10.0); NEUTROPHILS % (AUTO) 70.1 % (45.0-75.0); PLATELET COUNT 143 K/UL (150-450); RED BLOOD COUNT 4.92 M/UL (4.20-5.40); RED CELL DISTRIBUTION WIDTH 15.1 % (11.6-14.8); WHITE BLOOD COUNT 6.7 K/UL (4.8-10.8)
[2017-11-17 07:50] LABS: ANION GAP 10 mmol/L (5-15); BLOOD UREA NITROGEN 12 mg/dL (7-18); CALCIUM 9.9 MG/DL (8.5-10.1); CARBON DIOXIDE 23 MMOL/L (21-32); CHLORIDE 108 MMOL/L (98-107); CREATININE 0.8 MG/DL (0.55-1.30); POTASSIUM 4.6 MMOL/L (3.5-5.1); SODIUM 140 MMOL/L (136-145)
[2017-11-17 08:40] VITALS: BP 113/59
[2017-11-17] MEDS: Docusate 100mg/10ml Liq NG SCH ×3 (08:59→16:43)
--- NOTE | 2017-11-17 12:03 | Nephrology Progress Note ---
Assessment/Plan Problem List: (1) Hypokalemia (2) Dementia (3) UTI (urinary tract infection) (4) Encephalopathy due to metabolic factor or toxin Assessment Severe Encephalopathy rapidly progressive dementia, ? Encephalitis Generalized weakness Hypokalemia UTI (urinary tract infection) Dementia hypokalemia Plan NPO except meds- tube feeding IV fluid Adjust mind altering meds start PO when more awake discussed with RN due transfer to a higher level of care ? NGT ? higher level care? Subjective ROS Limited/Unobtainable: Yes Objective Objective Last 24 Hour Vital Signs Date Time Temp Pulse Resp B/P (MAP) Pulse Ox O2 Delivery O2 Flow Rate FiO2 11/17/17 08:40 98.2 80 18 113/59 (77) 94 98.2 11/17/17 07:26 79 11/17/17 07:13 Room Air 11/17/17 04:30 76 11/17/17 04:00 99.2 83 18 132/64 (86) 94 99.2 11/17/17 00:00 99.4 71 18 158/88 (111) 94 99.4 11/16/17 21:00 Room Air 11/16/17 20:00 72 11/16/17 20:00 99.2 73 19 122/72 (89) 94 99.2 11/16/17 16:00 97.0 85 20 145/99 (114) 94 97.0 11/16/17 16:00 76 Intake and Output 11/16/17 11/17/17 19:00 07:00 Intake Total 660 ml Output Total 1300 ml 400 ml Balance -640 ml -400 ml IV Total 600 ml Tube Feeding 60 ml Output Urine Total 1300 ml 400 ml # Voids 1 # Bowel Movements 1 Laboratory Tests 11/17/17 06:30: White Blood Count 6.7, Red Blood Count 4.92, Hemoglobin 13.4, Hematocrit 41.8, Mean Corpuscular Volume 85, Mean Corpuscular Hemoglobin 27.2, Mean Corpuscular Hemoglobin Concent 32.1, Red Cell Distribution Width 15.1H, Platelet Count 143L , Mean Platelet Volume 8.6, Neutrophils (%) (Auto) 70.1, Lymphocytes (%) (Auto) 18.6L, Monocytes (%) (Auto) 9.3, Eosinophils (%) (Auto) 1.2, Basophils (%) (Auto ) 0.7, Prothrombin Time 10.2, Prothromb Time International Ratio 1.0, Activated Partial Thromboplast Time 25, Sodium Level 140, Potassium Level 4.6, Chloride Level 108H, Carbon Dioxide Level 23, Anion Gap 10, Blood Urea Nitrogen 12, Creatinine 0.8, Estimat Glomerular Filtration Rate > 60, Glucose Level 116H, Calcium Level 9.9, Pro-B-Type Natriuretic Peptide 859H Height (Feet): 5 Height (Inches): 7.00 Weight (Pounds): 147 General Appearance: no apparent distress Objective no other change Nahum Connolly MD Nov 17, 2017 12:02
[2017-11-17 12:31] VITALS: BP 119/53
--- NOTE | 2017-11-17 13:04 | GI Progress Note ---
Assessment/Plan Problems: (1) Encephalopathy due to metabolic factor or toxin SNOMED: 195889835 (2) Constipation ICD Codes: K59.00 - Constipation, unspecified SNOMED: 02155134 (3) Altered level of consciousness ICD Codes: R40.4 - Transient alteration of awareness SNOMED: 3029840 (4) Dementia ICD Codes: F03.90 - Unspecified dementia without behavioral disturbance SNOMED: 10771408 (5) Generalized weakness ICD Codes: R53.1 - Weakness SNOMED: 71947686 Status: stable Status Narrative Discussed with Dr. Doan. Assessment/Plan PEG cancelled, wishes patient to be transferred to [facility] for neuro work up. resume diet, plan of care supportive care at this time, follow up psych recs NGT Feeds Neurology f/u bowel regime >> colace + miralax ppi zofran prn fu labs The patient was seen and examined at bedside and all new and available data was reviewed in the patients chart. I agree with the above findings, impression and plan. (Patient seen earlier today. Signature stamp does not reflect patient encounter time.). - Thang Doan MD Subjective Subjective limited Objective Last 24 Hour Vital Signs Date Time Temp Pulse Resp B/P (MAP) Pulse Ox O2 Delivery O2 Flow Rate FiO2 11/17/17 12:31 98.2 84 18 119/53 (75) 94 98.2 11/17/17 08:40 98.2 80 18 113/59 (77) 94 98.2 11/17/17 07:26 79 11/17/17 07:13 Room Air 11/17/17 04:30 76 11/17/17 04:00 99.2 83 18 132/64 (86) 94 99.2 11/17/17 00:00 99.4 71 18 158/88 (111) 94 99.4 11/16/17 21:00 Room Air 11/16/17 20:00 72 11/16/17 20:00 99.2 73 19 122/72 (89) 94 99.2 11/16/17 16:00 97.0 85 20 145/99 (114) 94 97.0 11/16/17 16:00 76 Intake and Output 11/16/17 11/17/17 19:00 07:00 Intake Total 660 ml Output Total 1300 ml 400 ml Balance -640 ml -400 ml IV Total 600 ml Tube Feeding 60 ml Output Urine Total 1300 ml 400 ml # Voids 1 # Bowel Movements 1 Laboratory Tests Test 11/17/17 06:30 White Blood Count 6.7 K/UL (4.8-10.8) Red Blood Count 4.92 M/UL (4.20-5.40) Hemoglobin 13.4 G/DL (12.0-16.0) Hematocrit 41.8 % (37.0-47.0) Mean Corpuscular Volume 85 FL (80-99) Mean Corpuscular Hemoglobin 27.2 PG (27.0-31.0) Mean Corpuscular Hemoglobin Concent 32.1 G/DL (32.0-36.0) Red Cell Distribution Width 15.1 % (11.6-14.8) H Platelet Count 143 K/UL (150-450) L Mean Platelet Volume 8.6 FL (6.5-10.1) Neutrophils (%) (Auto) 70.1 % (45.0-75.0) Lymphocytes (%) (Auto) 18.6 % (20.0-45.0) L Monocytes (%) (Auto) 9.3 % (1.0-10.0) Eosinophils (%) (Auto) 1.2 % (0.0-3.0) Basophils (%) (Auto) 0.7 % (0.0-2.0) Prothrombin Time 10.2 SEC (9.30-11.50) Prothromb Time International Ratio 1.0 (0.9-1.1) Activated Partial Thromboplast Time 25 SEC (23-33) Sodium Level 140 MMOL/L (136-145) Potassium Level 4.6 MMOL/L (3.5-5.1) Chloride Level 108 MMOL/L (98-107) H Carbon Dioxide Level 23 MMOL/L (21-32) Anion Gap 10 mmol/L (5-15) Blood Urea Nitrogen 12 mg/dL (7-18) Creatinine 0.8 MG/DL (0.55-1.30) Estimat Glomerular Filtration Rate > 60 mL/min (>60) Glucose Level 116 MG/DL (74-106) H Calcium Level 9.9 MG/DL (8.5-10.1) Pro-B-Type Natriuretic Peptide 859 pg/mL (0-125) H Height (Feet): 5 Height (Inches): 7.00 Weight (Pounds): 147 General Appearance: alert Cardiovascular: normal rate Respiratory/Chest: normal breath sounds, no respiratory distress Abdominal Exam: soft Lynette Colon NP Nov 17, 2017 13:04
--- NOTE | 2017-11-17 14:04 | Cardiology Report ---
APPROVED REPORT EXAM: Two-dimensional and M-mode echocardiogram with Doppler and color Doppler. INDICATION Congestive Heart Failure M-Mode DIMENSIONS IVSd1.1 (0.7-1.1cm)Left Atrium (MM)3.7 (1.6-4.0cm) LVDd4.0 (3.5-5.6cm)Aortic Root3.3 (2.0-3.7cm) PWd1.4 (0.7-1.1cm)Aortic Cusp Exc.1.5 (1.5-2.0cm) LVDs2.1 (2.5-4.0cm) PWs1.5 cm Normal left ventricular chamber size, systolic function and wall motion to extent visualized. Left ventricular ejection fraction grossly estimated to be 65 %. Study quality precludes accurate assessment of regional wall motion. Moderate left ventricular hypertrophy by 2-D. Anterior Echo-free space, may be due to pericardial fat or effusion. All other cardiac chamber sizes appear to be within normal limits. Focal aortic valve sclerosis with adequate cusp excursion. Thickened mitral valve leaflets with normal excursion. Mitral annulus and aortic root calcification. Pulmonic valve not well visualized. Normal tricuspid valve structure. A color flow and spectral Doppler study was performed and revealed: Diastolic function could not be evaluated.. Mitral regurgitation could not be evaluated. Mild tricuspid regurgitation. Tricuspid systolic velocities suggests peak right ventricular systolic pressure of 36 mmHg, consistent with mild pulmonary hypertension. Pulmonic regurgitation present.
--- NOTE | 2017-11-17 14:15 | Infectious Diseases Prog Note ---
Assessment/Plan Assessment/Plan A; Pyuria, doubt UTI Altered mental status Dementia, rapidly progressive P; Failed LP attempts Waiting transfer to [facility] Subjective ROS Limited/Unobtainable: Yes Allergies: Coded Allergies: IODINE (Verified Allergy, Unknown, 11/10/17) Objective Vital Signs Last 24 Hour Vital Signs Date Time Temp Pulse Resp B/P (MAP) Pulse Ox O2 Delivery O2 Flow Rate FiO2 11/17/17 12:31 98.2 84 18 119/53 (75) 94 98.2 11/17/17 11:30 87 11/17/17 08:40 98.2 80 18 113/59 (77) 94 98.2 11/17/17 07:26 79 11/17/17 07:13 Room Air 11/17/17 04:30 76 11/17/17 04:00 99.2 83 18 132/64 (86) 94 99.2 11/17/17 00:00 99.4 71 18 158/88 (111) 94 99.4 11/16/17 21:00 Room Air 11/16/17 20:00 72 11/16/17 20:00 99.2 73 19 122/72 (89) 94 99.2 11/16/17 16:00 97.0 85 20 145/99 (114) 94 97.0 11/16/17 16:00 76 Height (Feet): 5 Height (Inches): 7.00 Weight (Pounds): 147 General Appearance: no acute distress HEENT: mucous membranes moist Respiratory/Chest: lungs clear Cardiovascular: normal rate Abdomen: soft, non tender, other - NG tube Extremities: no edema Neurologic/Psychiatric: other - comatose Laboratory Tests Test 11/17/17 06:30 White Blood Count 6.7 K/UL (4.8-10.8) Red Blood Count 4.92 M/UL (4.20-5.40) Hemoglobin 13.4 G/DL (12.0-16.0) Hematocrit 41.8 % (37.0-47.0) Mean Corpuscular Volume 85 FL (80-99) Mean Corpuscular Hemoglobin 27.2 PG (27.0-31.0) Mean Corpuscular Hemoglobin Concent 32.1 G/DL (32.0-36.0) Red Cell Distribution Width 15.1 % (11.6-14.8) H Platelet Count 143 K/UL (150-450) L Mean Platelet Volume 8.6 FL (6.5-10.1) Neutrophils (%) (Auto) 70.1 % (45.0-75.0) Lymphocytes (%) (Auto) 18.6 % (20.0-45.0) L Monocytes (%) (Auto) 9.3 % (1.0-10.0) Eosinophils (%) (Auto) 1.2 % (0.0-3.0) Basophils (%) (Auto) 0.7 % (0.0-2.0) Prothrombin Time 10.2 SEC (9.30-11.50) Prothromb Time International Ratio 1.0 (0.9-1.1) Activated Partial Thromboplast Time 25 SEC (23-33) Sodium Level 140 MMOL/L (136-145) Potassium Level 4.6 MMOL/L (3.5-5.1) Chloride Level 108 MMOL/L (98-107) H Carbon Dioxide Level 23 MMOL/L (21-32) Anion Gap 10 mmol/L (5-15) Blood Urea Nitrogen 12 mg/dL (7-18) Creatinine 0.8 MG/DL (0.55-1.30) Estimat Glomerular Filtration Rate > 60 mL/min (>60) Glucose Level 116 MG/DL (74-106) H Calcium Level 9.9 MG/DL (8.5-10.1) Pro-B-Type Natriuretic Peptide 859 pg/mL (0-125) H Current Medications Medications (Trade) Dose Ordered Sig/Claritza Route PRN Reason Start Time Stop Time Status Last Admin Dose Admin Acetaminophen (Tylenol) 650 mg Q4H PRN ORAL Mild Pain/Temp > 100.5 11/10/17 23:30 12/10/17 23:29 11/16/17 03:44 Bisacodyl (Dulcolax) 10 mg NEEDED PRN RECTAL Constipation 11/10/17 23:45 12/10/17 23:44 Clonidine HCl (Catapres Tab) 0.1 mg EVERY 6 HOURS PRN ORAL For High Blood Pressure 11/10/17 23:30 12/10/17 23:29 Dextrose/ Electrolytes 1,000 ml @ 50 mls/hr Q20H IV 11/13/17 15:00 12/13/17 14:59 11/16/17 20:43 Docusate Sodium (Colace) 100 mg THREE TIMES A DAY NG 11/13/17 18:00 12/13/17 17:59 11/16/17 17:25 Famotidine (Pepcid I.v.) 20 mg Q12HR IVP 11/12/17 21:00 12/12/17 20:59 11/17/17 10:33 Lorazepam (Ativan) 1 mg Q6H PRN NG For Anxiety 11/15/17 10:34 11/19/17 10:33 11/17/17 12:07 Polyethylene Glycol (Miralax) 17 gm BEDTIME ORAL 11/12/17 21:00 12/12/17 20:59 11/16/17 20:40 Risperidone (RisperDAL) 1 mg BEDTIME PRN ORAL agitation 11/13/17 21:00 12/13/17 20:59 Kevon Thurston MD Nov 17, 2017 14:15
--- NOTE | 2017-11-17 15:09 | Cardiology Progress Note ---
Assessment/Plan Assessment/Plan 1. Non-sustained ventricular tachycardia. The patient was ruled out for myocardial infarction. Her BNP, however, is more than 1400. Echo showed EF 65% 2. Hypokalemia, replaced. 3. Encephalopathy, metabolic versus toxic . FU by Dr. Amos. 5 attempts at LP failed. 4. Urinary tract infection. 5. Dementia. 6. Dysphagia. The patient has a NG-tube. Followed up by Dr. Doan. Refused percutaneous endoscopic gastrostomy placement. DAKSHA RN and family Subjective Subjective No significant change. In NAD. IN SR. Transfer to [facility] pending. Refused repeat LP attempt or PEG placement Objective Last 24 Hour Vital Signs Date Time Temp Pulse Resp B/P (MAP) Pulse Ox O2 Delivery O2 Flow Rate FiO2 11/17/17 12:31 98.2 84 18 119/53 (75) 94 98.2 11/17/17 11:30 87 11/17/17 08:40 98.2 80 18 113/59 (77) 94 98.2 11/17/17 07:26 79 11/17/17 07:13 Room Air 11/17/17 04:30 76 11/17/17 04:00 99.2 83 18 132/64 (86) 94 99.2 11/17/17 00:00 99.4 71 18 158/88 (111) 94 99.4 11/16/17 21:00 Room Air 11/16/17 20:00 72 11/16/17 20:00 99.2 73 19 122/72 (89) 94 99.2 11/16/17 16:00 97.0 85 20 145/99 (114) 94 97.0 11/16/17 16:00 76 Intake and Output 11/16/17 11/17/17 19:00 07:00 Intake Total 660 ml Output Total 1300 ml 400 ml Balance -640 ml -400 ml IV Total 600 ml Tube Feeding 60 ml Output Urine Total 1300 ml 400 ml # Voids 1 # Bowel Movements 1 Laboratory Tests Test 11/17/17 06:30 White Blood Count 6.7 K/UL (4.8-10.8) Red Blood Count 4.92 M/UL (4.20-5.40) Hemoglobin 13.4 G/DL (12.0-16.0) Hematocrit 41.8 % (37.0-47.0) Mean Corpuscular Volume 85 FL (80-99) Mean Corpuscular Hemoglobin 27.2 PG (27.0-31.0) Mean Corpuscular Hemoglobin Concent 32.1 G/DL (32.0-36.0) Red Cell Distribution Width 15.1 % (11.6-14.8) H Platelet Count 143 K/UL (150-450) L Mean Platelet Volume 8.6 FL (6.5-10.1) Neutrophils (%) (Auto) 70.1 % (45.0-75.0) Lymphocytes (%) (Auto) 18.6 % (20.0-45.0) L Monocytes (%) (Auto) 9.3 % (1.0-10.0) Eosinophils (%) (Auto) 1.2 % (0.0-3.0) Basophils (%) (Auto) 0.7 % (0.0-2.0) Prothrombin Time 10.2 SEC (9.30-11.50) Prothromb Time International Ratio 1.0 (0.9-1.1) Activated Partial Thromboplast Time 25 SEC (23-33) Sodium Level 140 MMOL/L (136-145) Potassium Level 4.6 MMOL/L (3.5-5.1) Chloride Level 108 MMOL/L (98-107) H Carbon Dioxide Level 23 MMOL/L (21-32) Anion Gap 10 mmol/L (5-15) Blood Urea Nitrogen 12 mg/dL (7-18) Creatinine 0.8 MG/DL (0.55-1.30) Estimat Glomerular Filtration Rate > 60 mL/min (>60) Glucose Level 116 MG/DL (74-106) H Calcium Level 9.9 MG/DL (8.5-10.1) Pro-B-Type Natriuretic Peptide 859 pg/mL (0-125) H Objective HEAD AND NECK: No JVD and has a NG-tube. LUNGS: Clear. CARDIOVASCULAR: Shows regular S1 and S2 with no gallop or murmur. ABDOMEN: Soft. EXTREMITIES: No pitting edema. Telly Gottlieb MD Nov 17, 2017 15:09
[2017-11-17 15:56] VITALS: BP 139/78
[2017-11-17] MEDS: D5 1/2NS w/KCl 40meq 1000ml 1,000 ML IV SCH (17:15)
[2017-11-17 20:00] VITALS: BP 141/78
--- NOTE | 2017-11-17 20:07 | Neurology Progress Note ---
Interim History Interim History Interim History Ms. Ortega is poorly responsive. She only wakes up on deep pain. When she does wake up she moans and groans. She is severely cognitively impoverished. She is motorically challenged. A LP was attempted on 11/13/17 but she was moving constantly and thus the radiologist was unable to perform it. A LP was re-attempted on 11/16/17 by the radiologist - unfortunately the SAS could not be entered. There has been no significant change in her condition. We are waiting to transfer her to [facility] for further management. Review of Systems Neuro Review of Systems Unable to obtain Objective Physical Exam Last Vital Signs Date Time Temp Pulse Resp B/P (MAP) Pulse Ox O2 Delivery O2 Flow Rate FiO2 11/17/17 15:56 88 11/17/17 15:56 98.2 18 139/78 (98) 94 98.2 11/17/17 07:13 Room Air Laboratory Tests Test 11/17/17 06:30 White Blood Count 6.7 K/UL (4.8-10.8) Red Blood Count 4.92 M/UL (4.20-5.40) Hemoglobin 13.4 G/DL (12.0-16.0) Hematocrit 41.8 % (37.0-47.0) Mean Corpuscular Volume 85 FL (80-99) Mean Corpuscular Hemoglobin 27.2 PG (27.0-31.0) Mean Corpuscular Hemoglobin Concent 32.1 G/DL (32.0-36.0) Red Cell Distribution Width 15.1 % (11.6-14.8) H Platelet Count 143 K/UL (150-450) L Mean Platelet Volume 8.6 FL (6.5-10.1) Neutrophils (%) (Auto) 70.1 % (45.0-75.0) Lymphocytes (%) (Auto) 18.6 % (20.0-45.0) L Monocytes (%) (Auto) 9.3 % (1.0-10.0) Eosinophils (%) (Auto) 1.2 % (0.0-3.0) Basophils (%) (Auto) 0.7 % (0.0-2.0) Prothrombin Time 10.2 SEC (9.30-11.50) Prothromb Time International Ratio 1.0 (0.9-1.1) Activated Partial Thromboplast Time 25 SEC (23-33) Sodium Level 140 MMOL/L (136-145) Potassium Level 4.6 MMOL/L (3.5-5.1) Chloride Level 108 MMOL/L (98-107) H Carbon Dioxide Level 23 MMOL/L (21-32) Anion Gap 10 mmol/L (5-15) Blood Urea Nitrogen 12 mg/dL (7-18) Creatinine 0.8 MG/DL (0.55-1.30) Estimat Glomerular Filtration Rate > 60 mL/min (>60) Glucose Level 116 MG/DL (74-106) H Calcium Level 9.9 MG/DL (8.5-10.1) Pro-B-Type Natriuretic Peptide 859 pg/mL (0-125) H Neurologic Exam Objective PHYSICAL EXAMINATION: GENERAL: She is a well-developed, well-nourished, black lady, lying in bed, in no acute distress. HEAD: Normocephalic and atraumatic. EENT: Examination benign. NECK: She exhibited significant neck rigidity in all directions. NEUROLOGIC EXAMINATION: MENTAL STATUS EXAMINATION: She only responded deep painful stimuli with arousal. She only moaned and groaned and withdrew the appropriate extremity, but did not respond in any other way. Further mental status testing was impossible. SPEECH: Could not be tested. LANGUAGE: Could not be tested. CRANIAL NERVE EXAMINATION: II: She did not blink to threat. III, IV & : The external ocular movements were present on oculocephalic maneuvers. The pupils were 3 mm in diameter, equal, round, regular, and reactive sluggishly to light. V & VII: The corneal reflexes were present and symmetrical bilaterally. VIII: She did not respond to sounds and had no nystagmus. IX & X: The gag reflex was not tested. XI: The sternocleidomastoids and trapezii did function. XII: The tongue was in the midline. MOTOR SYSTEM: The tone was increased in all four extremities with gegenhalten. Examination of muscle mass revealed generalized muscle wasting. Examination of power was impossible to perform because even on applying deep painful stimuli only nonpurposeful withdrawal of the extremity was made. SENSORY EXAMINATION: She responded minimally to deep pain with withdrawal of the appropriate extremity. REFLEXES: 1+ and bilaterally symmetrical at the biceps, triceps, brachioradialis , and knees, 0 at both ankles. The plantar responses were extensor bilaterally. COORDINATION, STANCE & GAIT: Could not be tested. Impression/Recommendations Diagnostic Impression 1. Ms. Erica Ortega is a 72-year-old, black lady, of unknown handedness, who does have a past history of dementia and behavioral problems who was hospitalized for an alteration in her mental state. Of note is that, she was recently started on Nuedexta for behavioral problems. On being evaluated in the emergency room, she was noted to have a urinary tract infection and is on antibiotics for it. 2. As per Dr. Duke, her psychiatrist, she was worked up at [facility] [place] for a rapidly progressive dementia and there was a question as to whether she had an encephalitis. However no LP was done. 3. I had a chance to talk to her and brother and sister. They tell me she was a normally functioning person until July 2017. In August 2017 she had to be hospitalized for language problems, confusion, behavioral problems, episodes of fear, and loss of ability to walk. 4. She is poorly responsive. She only wakes up on deep pain. When she does wake up she moans and groans. She is severely cognitively impoverished. She is motorically challenged. A LP was attempted on 11/13/17 but she was moving constantly and thus the radiologist was unable to perform it. A LP was re- attempted on 11/16/17 by the radiologist - unfortunately the SAS could not be entered. There has been no significant change in her condition. 5. On neurological examination, at this time, she exhibits neck rigidity in all directions. She only wakes up momentarily on deep painful stimuli. She only moans and groans and withdraws the appropriate extremity on deep painful stimuli. She however does not demonstrate any focal or lateralizing neurological findings. 6. A CT scan of the brain performed on 11/10/2017 reveals atrophy and deep white matter changes, but no acute pathology. 7. Laboratory data revealed a relatively normal CBC. The chemistry panel revealed a low potassium at 2.8, a high chloride at 111 and an elevated glucose of 123. Her B12 level is normal at 460. Her folate was normal at 10.3 and her TSH was normal at 0.746. Her urinalysis however was abnormal with 1+ leukocyte esterase, 5-10 RBCs, 2-4 WBCs with few urinary bacteria. 8. The patient's history, neurological examination, laboratory data, and imaging studies are most compatible with a rapidly progressive dementia which has not been worked up thoroughly at this time. Recommendations 1. Continue present management. 2. Transfer her to [facility] for further management. 3. She should also be worked up for anti NMDA receptor encephalitis. 4. A Lumbar puncture should be performed and the CSF should be sent for indlent infectious processes and protein 14-3-3. 5. An MRI with volumetric analysis and a brain PET may also be useful when she gets to [facility]. 6. Once an accurate diagnosis is made then further management plans can be made. Jyoti Amos M.D., M.S.P.JYOTI OTERO Nov 17, 2017 20:07
[2017-11-17] MEDS: Miralax 17gm pkt ORAL SCH (21:00)
--- NOTE | 2017-11-17 21:07 | General Progress Note ---
Assessment/Plan Problem List: (1) Hypokalemia ICD Codes: E87.6 - Hypokalemia SNOMED: 92001179 (2) Dementia ICD Codes: F03.90 - Unspecified dementia without behavioral disturbance SNOMED: 43170185 (3) Altered level of consciousness ICD Codes: R40.4 - Transient alteration of awareness SNOMED: 4348209 (4) Encephalopathy due to metabolic factor or toxin SNOMED: 886039120 Status: unchanged Assessment/Plan ams moves a lot during LP ams of unknown etiology waxing and waning encelphalopathy afebrile abx per id psychosis and obs Subjective ROS Limited/Unobtainable: Yes Allergies: Coded Allergies: IODINE (Verified Allergy, Unknown, 11/10/17) Subjective waxing and waning mental state agitated Objective Last 24 Hour Vital Signs Date Time Temp Pulse Resp B/P (MAP) Pulse Ox O2 Delivery O2 Flow Rate FiO2 11/17/17 15:56 88 11/17/17 15:56 98.2 80 18 139/78 (98) 94 98.2 11/17/17 12:31 98.2 84 18 119/53 (75) 94 98.2 11/17/17 11:30 87 11/17/17 08:40 98.2 80 18 113/59 (77) 94 98.2 11/17/17 07:26 79 11/17/17 07:13 Room Air 11/17/17 04:30 76 11/17/17 04:00 99.2 83 18 132/64 (86) 94 99.2 11/17/17 00:00 99.4 71 18 158/88 (111) 94 99.4 Intake and Output 11/16/17 11/17/17 19:00 07:00 Intake Total 660 ml Output Total 1300 ml 400 ml Balance -640 ml -400 ml IV Total 600 ml Tube Feeding 60 ml Output Urine Total 1300 ml 400 ml # Voids 1 # Bowel Movements 1 Laboratory Tests 11/17/17 06:30: White Blood Count 6.7, Red Blood Count 4.92, Hemoglobin 13.4, Hematocrit 41.8, Mean Corpuscular Volume 85, Mean Corpuscular Hemoglobin 27.2, Mean Corpuscular Hemoglobin Concent 32.1, Red Cell Distribution Width 15.1H, Platelet Count 143L , Mean Platelet Volume 8.6, Neutrophils (%) (Auto) 70.1, Lymphocytes (%) (Auto) 18.6L, Monocytes (%) (Auto) 9.3, Eosinophils (%) (Auto) 1.2, Basophils (%) (Auto ) 0.7, Prothrombin Time 10.2, Prothromb Time International Ratio 1.0, Activated Partial Thromboplast Time 25, Sodium Level 140, Potassium Level 4.6, Chloride Level 108H, Carbon Dioxide Level 23, Anion Gap 10, Blood Urea Nitrogen 12, Creatinine 0.8, Estimat Glomerular Filtration Rate > 60, Glucose Level 116H, Calcium Level 9.9, Pro-B-Type Natriuretic Peptide 859H Height (Feet): 5 Height (Inches): 7.00 Weight (Pounds): 147 General Appearance: lethargic, confused Respiratory/Chest: lungs clear Abdomen: soft Sampson Leggett MD Nov 17, 2017 21:07
[2017-11-18] VITALS: BP 101/62
--- NOTE | 2017-11-18 00:05 | General Progress Note ---
Assessment/Plan Problem List: (1) Encephalopathy due to metabolic factor or toxin SNOMED: 230863584 Assessment/Plan decrease ativan change risperdal 1mg qhs to prn Subjective Date patient seen: Nov 17, 2017 Neurologic/Psychiatric: Reports: anxiety Allergies: Coded Allergies: IODINE (Verified Allergy, Unknown, 11/10/17) Subjective the pt cont to be agitated. radiology attempted to do LP thursday but was unsuccessful due to "bone structure Objective Last 24 Hour Vital Signs Date Time Temp Pulse Resp B/P (MAP) Pulse Ox O2 Delivery O2 Flow Rate FiO2 11/17/17 20:00 98.6 89 19 141/78 (99) 94 98.6 11/17/17 15:56 88 11/17/17 15:56 98.2 80 18 139/78 (98) 94 98.2 11/17/17 12:31 98.2 84 18 119/53 (75) 94 98.2 11/17/17 11:30 87 11/17/17 08:40 98.2 80 18 113/59 (77) 94 98.2 11/17/17 07:26 79 11/17/17 07:13 Room Air 11/17/17 04:30 76 11/17/17 04:00 99.2 83 18 132/64 (86) 94 99.2 Intake and Output 11/17/17 11/18/17 19:00 07:00 Intake Total 740 ml Output Total 800 ml Balance -60 ml Free Water 200 ml Tube Feeding 540 ml Output Urine Total 800 ml # Bowel Movements 1 Laboratory Tests 11/17/17 06:30: White Blood Count 6.7, Red Blood Count 4.92, Hemoglobin 13.4, Hematocrit 41.8, Mean Corpuscular Volume 85, Mean Corpuscular Hemoglobin 27.2, Mean Corpuscular Hemoglobin Concent 32.1, Red Cell Distribution Width 15.1H, Platelet Count 143L , Mean Platelet Volume 8.6, Neutrophils (%) (Auto) 70.1, Lymphocytes (%) (Auto) 18.6L, Monocytes (%) (Auto) 9.3, Eosinophils (%) (Auto) 1.2, Basophils (%) (Auto ) 0.7, Prothrombin Time 10.2, Prothromb Time International Ratio 1.0, Activated Partial Thromboplast Time 25, Sodium Level 140, Potassium Level 4.6, Chloride Level 108H, Carbon Dioxide Level 23, Anion Gap 10, Blood Urea Nitrogen 12, Creatinine 0.8, Estimat Glomerular Filtration Rate > 60, Glucose Level 116H, Calcium Level 9.9, Pro-B-Type Natriuretic Peptide 859H Height (Feet): 5 Height (Inches): 7.00 Weight (Pounds): 147 General Appearance: lethargic, confused, agitated Ramon Duke MD Nov 18, 2017 00:05
[2017-11-18 04:00] VITALS: BP 128/71
[2017-11-18 07:49] LABS: BASOPHILS % (AUTO) 1.5 % (0.0-2.0); EOSINOPHILS % (AUTO) 2.7 % (0.0-3.0); HEMATOCRIT 44.5 % (37.0-47.0); HEMOGLOBIN 14.3 G/DL (12.0-16.0); LYMPHOCYTES % (AUTO) 24.7 % (20.0-45.0); MEAN CORPUSCULAR VOLUME 85 FL (80-99); MONOCYTES % (AUTO) 10.6 % (1.0-10.0); NEUTROPHILS % (AUTO) 60.6 % (45.0-75.0); PLATELET COUNT 168 K/UL (150-450); RED BLOOD COUNT 5.24 M/UL (4.20-5.40); RED CELL DISTRIBUTION WIDTH 14.8 % (11.6-14.8); WHITE BLOOD COUNT 6.3 K/UL (4.8-10.8)
[2017-11-18 08:00] VITALS: BP 126/77
[2017-11-18 08:06] LABS: ANION GAP 11 mmol/L (5-15); BLOOD UREA NITROGEN 11 mg/dL (7-18); CALCIUM 10.1 MG/DL (8.5-10.1); CARBON DIOXIDE 22 MMOL/L (21-32); CHLORIDE 106 MMOL/L (98-107); CREATININE 0.8 MG/DL (0.55-1.30); POTASSIUM 4.6 MMOL/L (3.5-5.1); SODIUM 139 MMOL/L (136-145)
[2017-11-18] MEDS: Docusate 100mg/10ml Liq NG SCH ×3 (09:00→17:50)
--- NOTE | 2017-11-18 11:06 | GI Progress Note ---
Assessment/Plan Problems: (1) Encephalopathy due to metabolic factor or toxin SNOMED: 854553932 (2) Constipation ICD Codes: K59.00 - Constipation, unspecified SNOMED: 29139296 (3) Altered level of consciousness ICD Codes: R40.4 - Transient alteration of awareness SNOMED: 1120433 (4) Dementia ICD Codes: F03.90 - Unspecified dementia without behavioral disturbance SNOMED: 66431516 (5) Generalized weakness ICD Codes: R53.1 - Weakness SNOMED: 97559481 Status: unchanged Status Narrative Discussed with Dr. Doan. Assessment/Plan PEG cancelled, wishes patient to be transferred to [facility] for neuro work up. resume diet, plan of care supportive care at this time, follow up psych recs NGT Feeds Neurology f/u bowel regime >> colace + miralax ppi zofran prn fu labs The patient was seen and examined at bedside and all new and available data was reviewed in the patients chart. I agree with the above findings, impression and plan. (Patient seen earlier today. Signature stamp does not reflect patient encounter time.). - Thang Doan MD Subjective Subjective limited Objective Last 24 Hour Vital Signs Date Time Temp Pulse Resp B/P (MAP) Pulse Ox O2 Delivery O2 Flow Rate FiO2 11/18/17 09:00 Room Air 11/18/17 08:00 81 11/18/17 08:00 98.2 79 20 126/77 (93) 95 98.2 11/18/17 04:00 98.1 72 18 128/71 (90) 96 98.1 11/18/17 04:00 78 11/18/17 00:00 74 11/18/17 00:00 98.1 69 19 101/62 (75) 93 98.1 11/17/17 21:00 Room Air 11/17/17 20:00 98.6 89 19 141/78 (99) 94 98.6 11/17/17 20:00 80 11/17/17 15:56 88 11/17/17 15:56 98.2 80 18 139/78 (98) 94 98.2 11/17/17 12:31 98.2 84 18 119/53 (75) 94 98.2 11/17/17 11:30 87 Intake and Output 11/17/17 11/18/17 19:00 07:00 Intake Total 740 ml Output Total 800 ml 1100 ml Balance -60 ml -1100 ml Free Water 200 ml Tube Feeding 540 ml Output Urine Total 800 ml 1100 ml # Bowel Movements 1 1 Laboratory Tests Test 11/18/17 06:45 White Blood Count 6.3 K/UL (4.8-10.8) Red Blood Count 5.24 M/UL (4.20-5.40) Hemoglobin 14.3 G/DL (12.0-16.0) Hematocrit 44.5 % (37.0-47.0) Mean Corpuscular Volume 85 FL (80-99) Mean Corpuscular Hemoglobin 27.3 PG (27.0-31.0) Mean Corpuscular Hemoglobin Concent 32.1 G/DL (32.0-36.0) Red Cell Distribution Width 14.8 % (11.6-14.8) Platelet Count 168 K/UL (150-450) Mean Platelet Volume 8.4 FL (6.5-10.1) Neutrophils (%) (Auto) 60.6 % (45.0-75.0) Lymphocytes (%) (Auto) 24.7 % (20.0-45.0) Monocytes (%) (Auto) 10.6 % (1.0-10.0) H Eosinophils (%) (Auto) 2.7 % (0.0-3.0) Basophils (%) (Auto) 1.5 % (0.0-2.0) Sodium Level 139 MMOL/L (136-145) Potassium Level 4.6 MMOL/L (3.5-5.1) Chloride Level 106 MMOL/L (98-107) Carbon Dioxide Level 22 MMOL/L (21-32) Anion Gap 11 mmol/L (5-15) Blood Urea Nitrogen 11 mg/dL (7-18) Creatinine 0.8 MG/DL (0.55-1.30) Estimat Glomerular Filtration Rate > 60 mL/min (>60) Glucose Level 110 MG/DL (74-106) H Calcium Level 10.1 MG/DL (8.5-10.1) Height (Feet): 5 Height (Inches): 7.00 Weight (Pounds): 163 General Appearance: lethargic Cardiovascular: normal rate Respiratory/Chest: no respiratory distress Abdominal Exam: normal bowel sounds, non tender, soft Lynette Colon NP Nov 18, 2017 11:06
--- NOTE | 2017-11-18 11:30 | Cardiology Progress Note ---
Assessment/Plan Assessment/Plan 1. Non-sustained ventricular tachycardia. Ruled out for myocardial infarction. Echo showed EF 65% 2. Hypokalemia, replaced. 3. Encephalopathy, metabolic versus toxic. FU by Dr. Amos. 5 attempts at LP failed. 4. Urinary tract infection. 5. Dementia. 6. Dysphagia. The patient has a NG-tube. Followed up by Dr. Doan. Refused percutaneous endoscopic gastrostomy placement. DAKSHA RN Awaiting transfer to [facility] Subjective Subjective No significant change. In SR. Transfer to [facility] pending. Objective Last 24 Hour Vital Signs Date Time Temp Pulse Resp B/P (MAP) Pulse Ox O2 Delivery O2 Flow Rate FiO2 11/18/17 09:00 Room Air 11/18/17 08:00 81 11/18/17 08:00 98.2 79 20 126/77 (93) 95 98.2 11/18/17 04:00 98.1 72 18 128/71 (90) 96 98.1 11/18/17 04:00 78 11/18/17 00:00 74 11/18/17 00:00 98.1 69 19 101/62 (75) 93 98.1 11/17/17 21:00 Room Air 11/17/17 20:00 98.6 89 19 141/78 (99) 94 98.6 11/17/17 20:00 80 11/17/17 15:56 88 11/17/17 15:56 98.2 80 18 139/78 (98) 94 98.2 11/17/17 12:31 98.2 84 18 119/53 (75) 94 98.2 11/17/17 11:30 87 Intake and Output 11/17/17 11/18/17 19:00 07:00 Intake Total 740 ml Output Total 800 ml 1100 ml Balance -60 ml -1100 ml Free Water 200 ml Tube Feeding 540 ml Output Urine Total 800 ml 1100 ml # Bowel Movements 1 1 Laboratory Tests Test 11/18/17 06:45 White Blood Count 6.3 K/UL (4.8-10.8) Red Blood Count 5.24 M/UL (4.20-5.40) Hemoglobin 14.3 G/DL (12.0-16.0) Hematocrit 44.5 % (37.0-47.0) Mean Corpuscular Volume 85 FL (80-99) Mean Corpuscular Hemoglobin 27.3 PG (27.0-31.0) Mean Corpuscular Hemoglobin Concent 32.1 G/DL (32.0-36.0) Red Cell Distribution Width 14.8 % (11.6-14.8) Platelet Count 168 K/UL (150-450) Mean Platelet Volume 8.4 FL (6.5-10.1) Neutrophils (%) (Auto) 60.6 % (45.0-75.0) Lymphocytes (%) (Auto) 24.7 % (20.0-45.0) Monocytes (%) (Auto) 10.6 % (1.0-10.0) H Eosinophils (%) (Auto) 2.7 % (0.0-3.0) Basophils (%) (Auto) 1.5 % (0.0-2.0) Sodium Level 139 MMOL/L (136-145) Potassium Level 4.6 MMOL/L (3.5-5.1) Chloride Level 106 MMOL/L (98-107) Carbon Dioxide Level 22 MMOL/L (21-32) Anion Gap 11 mmol/L (5-15) Blood Urea Nitrogen 11 mg/dL (7-18) Creatinine 0.8 MG/DL (0.55-1.30) Estimat Glomerular Filtration Rate > 60 mL/min (>60) Glucose Level 110 MG/DL (74-106) H Calcium Level 10.1 MG/DL (8.5-10.1) Objective HEAD AND NECK: No JVD and has a NG-tube. LUNGS: Clear. CARDIOVASCULAR: Shows regular S1 and S2 with no gallop or murmur. ABDOMEN: Soft. EXTREMITIES: No pitting edema. Telly Gottlieb MD Nov 18, 2017 11:30
[2017-11-18 12:00] VITALS: BP 157/87
--- NOTE | 2017-11-18 12:36 | Infectious Diseases Prog Note ---
Assessment/Plan Assessment/Plan A; Pyuria, doubt UTI Altered mental status Dementia, rapidly progressive P; Failed LP attempts Waiting transfer to [facility] Subjective ROS Limited/Unobtainable: Yes Neurologic: Reports: confusion, other - moaning Allergies: Coded Allergies: IODINE (Verified Allergy, Unknown, 11/10/17) Objective Vital Signs Last 24 Hour Vital Signs Date Time Temp Pulse Resp B/P (MAP) Pulse Ox O2 Delivery O2 Flow Rate FiO2 11/18/17 09:00 Room Air 11/18/17 08:00 81 11/18/17 08:00 98.2 79 20 126/77 (93) 95 98.2 11/18/17 04:00 98.1 72 18 128/71 (90) 96 98.1 11/18/17 04:00 78 11/18/17 00:00 74 11/18/17 00:00 98.1 69 19 101/62 (75) 93 98.1 11/17/17 21:00 Room Air 11/17/17 20:00 98.6 89 19 141/78 (99) 94 98.6 11/17/17 20:00 80 11/17/17 15:56 88 11/17/17 15:56 98.2 80 18 139/78 (98) 94 98.2 Height (Feet): 5 Height (Inches): 7.00 Weight (Pounds): 163 HEENT: mucous membranes moist Respiratory/Chest: lungs clear Cardiovascular: normal rate Abdomen: soft, non tender, other - NG tube feeding Extremities: no edema Neurologic/Psychiatric: disoriented Laboratory Tests Test 11/18/17 06:45 White Blood Count 6.3 K/UL (4.8-10.8) Red Blood Count 5.24 M/UL (4.20-5.40) Hemoglobin 14.3 G/DL (12.0-16.0) Hematocrit 44.5 % (37.0-47.0) Mean Corpuscular Volume 85 FL (80-99) Mean Corpuscular Hemoglobin 27.3 PG (27.0-31.0) Mean Corpuscular Hemoglobin Concent 32.1 G/DL (32.0-36.0) Red Cell Distribution Width 14.8 % (11.6-14.8) Platelet Count 168 K/UL (150-450) Mean Platelet Volume 8.4 FL (6.5-10.1) Neutrophils (%) (Auto) 60.6 % (45.0-75.0) Lymphocytes (%) (Auto) 24.7 % (20.0-45.0) Monocytes (%) (Auto) 10.6 % (1.0-10.0) H Eosinophils (%) (Auto) 2.7 % (0.0-3.0) Basophils (%) (Auto) 1.5 % (0.0-2.0) Sodium Level 139 MMOL/L (136-145) Potassium Level 4.6 MMOL/L (3.5-5.1) Chloride Level 106 MMOL/L (98-107) Carbon Dioxide Level 22 MMOL/L (21-32) Anion Gap 11 mmol/L (5-15) Blood Urea Nitrogen 11 mg/dL (7-18) Creatinine 0.8 MG/DL (0.55-1.30) Estimat Glomerular Filtration Rate > 60 mL/min (>60) Glucose Level 110 MG/DL (74-106) H Calcium Level 10.1 MG/DL (8.5-10.1) Current Medications Medications (Trade) Dose Ordered Sig/Claritza Route PRN Reason Start Time Stop Time Status Last Admin Dose Admin Acetaminophen (Tylenol) 650 mg Q4H PRN ORAL Mild Pain/Temp > 100.5 11/10/17 23:30 12/10/17 23:29 11/17/17 23:47 Bisacodyl (Dulcolax) 10 mg NEEDED PRN RECTAL Constipation 11/10/17 23:45 12/10/17 23:44 Clonidine HCl (Catapres Tab) 0.1 mg EVERY 6 HOURS PRN ORAL For High Blood Pressure 11/10/17 23:30 12/10/17 23:29 Dextrose/ Electrolytes 1,000 ml @ 50 mls/hr Q20H IV 11/13/17 15:00 12/13/17 14:59 11/17/17 17:15 Docusate Sodium (Colace) 100 mg THREE TIMES A DAY NG 11/13/17 18:00 12/13/17 17:59 11/18/17 09:00 Famotidine (Pepcid I.v.) 20 mg Q12HR IVP 11/12/17 21:00 12/12/17 20:59 11/18/17 09:00 Lorazepam (Ativan) 1 mg Q6H PRN NG For Anxiety 11/15/17 10:34 11/19/17 10:33 11/17/17 12:07 Polyethylene Glycol (Miralax) 17 gm BEDTIME ORAL 11/12/17 21:00 12/12/17 20:59 11/16/17 20:40 Risperidone (RisperDAL) 1 mg BEDTIME PRN ORAL agitation 11/13/17 21:00 12/13/17 20:59 Kevon Thurston MD Nov 18, 2017 12:36
--- NOTE | 2017-11-18 13:06 | General Progress Note ---
Assessment/Plan Problem List: (1) Encephalopathy due to metabolic factor or toxin SNOMED: 223523821 Assessment/Plan decrease Ativan change Risperdal 1mg qhs to prn r/o CJ. The LP was unsuccessful awaiting bed at [facility] Subjective Date patient seen: Nov 18, 2017 Neurologic/Psychiatric: Reports: anxiety, depressed Allergies: Coded Allergies: IODINE (Verified Allergy, Unknown, 11/10/17) Subjective the pt cont to be agitated. the pt was moaning and confused Objective Last 24 Hour Vital Signs Date Time Temp Pulse Resp B/P (MAP) Pulse Ox O2 Delivery O2 Flow Rate FiO2 11/18/17 09:00 Room Air 11/18/17 08:00 81 11/18/17 08:00 98.2 79 20 126/77 (93) 95 98.2 11/18/17 04:00 98.1 72 18 128/71 (90) 96 98.1 11/18/17 04:00 78 11/18/17 00:00 74 11/18/17 00:00 98.1 69 19 101/62 (75) 93 98.1 11/17/17 21:00 Room Air 11/17/17 20:00 98.6 89 19 141/78 (99) 94 98.6 11/17/17 20:00 80 11/17/17 15:56 88 11/17/17 15:56 98.2 80 18 139/78 (98) 94 98.2 Intake and Output 11/17/17 11/18/17 19:00 07:00 Intake Total 740 ml 110 ml Output Total 800 ml 1100 ml Balance -60 ml -990 ml Free Water 200 ml IV Total 50 ml Tube Feeding 540 ml 60 ml Output Urine Total 800 ml 1100 ml # Bowel Movements 1 1 Laboratory Tests 11/18/17 06:45: White Blood Count 6.3, Red Blood Count 5.24, Hemoglobin 14.3, Hematocrit 44.5, Mean Corpuscular Volume 85, Mean Corpuscular Hemoglobin 27.3, Mean Corpuscular Hemoglobin Concent 32.1, Red Cell Distribution Width 14.8, Platelet Count 168, Mean Platelet Volume 8.4, Neutrophils (%) (Auto) 60.6, Lymphocytes (%) (Auto) 24.7, Monocytes (%) (Auto) 10.6H, Eosinophils (%) (Auto) 2.7, Basophils (%) ( Auto) 1.5, Sodium Level 139, Potassium Level 4.6, Chloride Level 106, Carbon Dioxide Level 22, Anion Gap 11, Blood Urea Nitrogen 11, Creatinine 0.8, Estimat Glomerular Filtration Rate > 60, Glucose Level 110H, Calcium Level 10.1 Height (Feet): 5 Height (Inches): 7.00 Weight (Pounds): 163 General Appearance: lethargic, confused, agitated Ramon Duke MD Nov 18, 2017 13:06
[2017-11-18] MEDS: D5 1/2NS w/KCl 40meq 1000ml 1,000 ML IV SCH (13:08)
--- NOTE | 2017-11-18 13:22 | Nephrology Progress Note ---
Assessment/Plan Problem List: (1) Hypokalemia (2) Dementia (3) UTI (urinary tract infection) (4) Encephalopathy due to metabolic factor or toxin Assessment Severe Encephalopathy rapidly progressive dementia, ? Encephalitis Generalized weakness Hypokalemia UTI (urinary tract infection) Dementia hypokalemia Plan NPO except meds- tube feeding IV fluid Adjust mind altering meds start PO when more awake discussed with RN due transfer to a higher level of care ? NGT ? higher level care? Subjective ROS Limited/Unobtainable: Yes Objective Objective Last 24 Hour Vital Signs Date Time Temp Pulse Resp B/P (MAP) Pulse Ox O2 Delivery O2 Flow Rate FiO2 11/18/17 09:00 Room Air 11/18/17 08:00 81 11/18/17 08:00 98.2 79 20 126/77 (93) 95 98.2 11/18/17 04:00 98.1 72 18 128/71 (90) 96 98.1 11/18/17 04:00 78 11/18/17 00:00 74 11/18/17 00:00 98.1 69 19 101/62 (75) 93 98.1 11/17/17 21:00 Room Air 11/17/17 20:00 98.6 89 19 141/78 (99) 94 98.6 11/17/17 20:00 80 11/17/17 15:56 88 11/17/17 15:56 98.2 80 18 139/78 (98) 94 98.2 Intake and Output 11/17/17 11/18/17 19:00 07:00 Intake Total 740 ml 110 ml Output Total 800 ml 1100 ml Balance -60 ml -990 ml Free Water 200 ml IV Total 50 ml Tube Feeding 540 ml 60 ml Output Urine Total 800 ml 1100 ml # Bowel Movements 1 1 Laboratory Tests 11/18/17 06:45: White Blood Count 6.3, Red Blood Count 5.24, Hemoglobin 14.3, Hematocrit 44.5, Mean Corpuscular Volume 85, Mean Corpuscular Hemoglobin 27.3, Mean Corpuscular Hemoglobin Concent 32.1, Red Cell Distribution Width 14.8, Platelet Count 168, Mean Platelet Volume 8.4, Neutrophils (%) (Auto) 60.6, Lymphocytes (%) (Auto) 24.7, Monocytes (%) (Auto) 10.6H, Eosinophils (%) (Auto) 2.7, Basophils (%) ( Auto) 1.5, Sodium Level 139, Potassium Level 4.6, Chloride Level 106, Carbon Dioxide Level 22, Anion Gap 11, Blood Urea Nitrogen 11, Creatinine 0.8, Estimat Glomerular Filtration Rate > 60, Glucose Level 110H, Calcium Level 10.1 Height (Feet): 5 Height (Inches): 7.00 Weight (Pounds): 163 General Appearance: no apparent distress, other - occasional moaning Neck: limited range of motion Cardiovascular: normal rate Respiratory/Chest: decreased breath sounds Abdomen: soft, distended Objective no other change Nahum Connolly MD Nov 18, 2017 13:22
[2017-11-18 16:00] VITALS: BP 136/84
--- NOTE | 2017-11-18 18:08 | Neurology Progress Note ---
Interim History Interim History Interim History Ms. Ortega is poorly responsive. She only wakes up on deep pain. When she does wake up she moans and groans. She is severely cognitively impoverished. She is motorically challenged. A LP was attempted on 11/13/17 but she was moving constantly and thus the radiologist was unable to perform it. A LP was re-attempted on 11/16/17 by the radiologist - unfortunately the SAS could not be entered. There has been no significant change in her condition. We are waiting to transfer her to [facility] for further management. Review of Systems Neuro Review of Systems Unable to obtain Objective Physical Exam Last Vital Signs Date Time Temp Pulse Resp B/P (MAP) Pulse Ox O2 Delivery O2 Flow Rate FiO2 11/18/17 16:00 97.3 80 20 136/84 (101) 97 97.3 11/18/17 09:00 Room Air Laboratory Tests Test 11/18/17 06:45 White Blood Count 6.3 K/UL (4.8-10.8) Red Blood Count 5.24 M/UL (4.20-5.40) Hemoglobin 14.3 G/DL (12.0-16.0) Hematocrit 44.5 % (37.0-47.0) Mean Corpuscular Volume 85 FL (80-99) Mean Corpuscular Hemoglobin 27.3 PG (27.0-31.0) Mean Corpuscular Hemoglobin Concent 32.1 G/DL (32.0-36.0) Red Cell Distribution Width 14.8 % (11.6-14.8) Platelet Count 168 K/UL (150-450) Mean Platelet Volume 8.4 FL (6.5-10.1) Neutrophils (%) (Auto) 60.6 % (45.0-75.0) Lymphocytes (%) (Auto) 24.7 % (20.0-45.0) Monocytes (%) (Auto) 10.6 % (1.0-10.0) H Eosinophils (%) (Auto) 2.7 % (0.0-3.0) Basophils (%) (Auto) 1.5 % (0.0-2.0) Sodium Level 139 MMOL/L (136-145) Potassium Level 4.6 MMOL/L (3.5-5.1) Chloride Level 106 MMOL/L (98-107) Carbon Dioxide Level 22 MMOL/L (21-32) Anion Gap 11 mmol/L (5-15) Blood Urea Nitrogen 11 mg/dL (7-18) Creatinine 0.8 MG/DL (0.55-1.30) Estimat Glomerular Filtration Rate > 60 mL/min (>60) Glucose Level 110 MG/DL (74-106) H Calcium Level 10.1 MG/DL (8.5-10.1) Neurologic Exam Objective PHYSICAL EXAMINATION: GENERAL: She is a well-developed, well-nourished, black lady, lying in bed, in no acute distress. HEAD: Normocephalic and atraumatic. EENT: Examination benign. NECK: She exhibited significant neck rigidity in all directions. NEUROLOGIC EXAMINATION: MENTAL STATUS EXAMINATION: She only responded deep painful stimuli with arousal. She only moaned and groaned and withdrew the appropriate extremity, but did not respond in any other way. Further mental status testing was impossible. SPEECH: Could not be tested. LANGUAGE: Could not be tested. CRANIAL NERVE EXAMINATION: II: She did not blink to threat. III, IV & : The external ocular movements were present on oculocephalic maneuvers. The pupils were 3 mm in diameter, equal, round, regular, and reactive sluggishly to light. V & VII: The corneal reflexes were present and symmetrical bilaterally. VIII: She did not respond to sounds and had no nystagmus. IX & X: The gag reflex was not tested. XI: The sternocleidomastoids and trapezii did function. XII: The tongue was in the midline. MOTOR SYSTEM: The tone was increased in all four extremities with gegenhalten. Examination of muscle mass revealed generalized muscle wasting. Examination of power was impossible to perform because even on applying deep painful stimuli only nonpurposeful withdrawal of the extremity was made. SENSORY EXAMINATION: She responded minimally to deep pain with withdrawal of the appropriate extremity. REFLEXES: 1+ and bilaterally symmetrical at the biceps, triceps, brachioradialis , and knees, 0 at both ankles. The plantar responses were extensor bilaterally. COORDINATION, STANCE & GAIT: Could not be tested. Impression/Recommendations Diagnostic Impression 1. Ms. Erica Ortega is a 72-year-old, black lady, of unknown handedness, who does have a past history of dementia and behavioral problems who was hospitalized for an alteration in her mental state. Of note is that, she was recently started on Nuedexta for behavioral problems. On being evaluated in the emergency room, she was noted to have a urinary tract infection and is on antibiotics for it. 2. As per Dr. Duke, her psychiatrist, she was worked up at [facility] [place] for a rapidly progressive dementia and there was a question as to whether she had an encephalitis. However no LP was done. 3. I had a chance to talk to her and brother and sister. They tell me she was a normally functioning person until July 2017. In August 2017 she had to be hospitalized for language problems, confusion, behavioral problems, episodes of fear, and loss of ability to walk. 4. She is poorly responsive. She only wakes up on deep pain. When she does wake up she moans and groans. She is severely cognitively impoverished. She is motorically challenged. A LP was attempted on 11/13/17 but she was moving constantly and thus the radiologist was unable to perform it. A LP was re- attempted on 11/16/17 by the radiologist - unfortunately the SAS could not be entered. There has been no significant change in her condition. 5. On neurological examination, at this time, she exhibits neck rigidity in all directions. She only wakes up momentarily on deep painful stimuli. She only moans and groans and withdraws the appropriate extremity on deep painful stimuli. She however does not demonstrate any focal or lateralizing neurological findings. 6. A CT scan of the brain performed on 11/10/2017 reveals atrophy and deep white matter changes, but no acute pathology. 7. Laboratory data revealed a relatively normal CBC. The chemistry panel revealed a low potassium at 2.8, a high chloride at 111 and an elevated glucose of 123. Her B12 level is normal at 460. Her folate was normal at 10.3 and her TSH was normal at 0.746. Her urinalysis however was abnormal with 1+ leukocyte esterase, 5-10 RBCs, 2-4 WBCs with few urinary bacteria. 8. The patient's history, neurological examination, laboratory data, and imaging studies are most compatible with a rapidly progressive dementia which has not been worked up thoroughly at this time. Recommendations 1. Continue present management. 2. Transfer her to [facility] for further management. 3. She should also be worked up for anti NMDA receptor encephalitis. 4. A Lumbar puncture should be performed and the CSF should be sent for indlent infectious processes and protein 14-3-3. 5. An MRI with volumetric analysis and a brain PET may also be useful when she gets to [facility]. 6. [place] [facility] [place] 7. Once an accurate diagnosis is made then further management plans can be made. Jyoti Amos M.D., M.S.P.H. JYOTI AMOS Nov 18, 2017 18:08
[2017-11-18 20:00] VITALS: BP 127/70
[2017-11-18] MEDS: Miralax 17gm pkt ORAL SCH (20:46)
--- NOTE | 2017-11-18 22:00 | General Progress Note ---
Assessment/Plan Problem List: (1) Hypokalemia ICD Codes: E87.6 - Hypokalemia SNOMED: 75931097 (2) Dementia ICD Codes: F03.90 - Unspecified dementia without behavioral disturbance SNOMED: 69374142 (3) Altered level of consciousness ICD Codes: R40.4 - Transient alteration of awareness SNOMED: 7073953 (4) Encephalopathy due to metabolic factor or toxin SNOMED: 100452916 Assessment/Plan ams told at bedside that i told rn to transfer to any hospital that he wants moves a lot during LP ams of unknown etiology waxing and waning encelphalopathy afebrile Subjective ROS Limited/Unobtainable: Yes Allergies: Coded Allergies: IODINE (Verified Allergy, Unknown, 11/10/17) Subjective waxing and waning mental state agitated Objective Last 24 Hour Vital Signs Date Time Temp Pulse Resp B/P (MAP) Pulse Ox O2 Delivery O2 Flow Rate FiO2 11/18/17 16:00 97.3 80 20 136/84 (101) 97 97.3 11/18/17 16:00 79 11/18/17 12:00 97.8 83 20 157/87 (110) 96 97.8 11/18/17 12:00 77 11/18/17 09:00 Room Air 11/18/17 08:00 81 11/18/17 08:00 98.2 79 20 126/77 (93) 95 98.2 11/18/17 04:00 98.1 72 18 128/71 (90) 96 98.1 11/18/17 04:00 78 11/18/17 00:00 74 11/18/17 00:00 98.1 69 19 101/62 (75) 93 98.1 Intake and Output 11/17/17 11/18/17 19:00 07:00 Intake Total 740 ml 110 ml Output Total 800 ml 1100 ml Balance -60 ml -990 ml Free Water 200 ml IV Total 50 ml Tube Feeding 540 ml 60 ml Output Urine Total 800 ml 1100 ml # Bowel Movements 1 1 Laboratory Tests 11/18/17 06:45: White Blood Count 6.3, Red Blood Count 5.24, Hemoglobin 14.3, Hematocrit 44.5, Mean Corpuscular Volume 85, Mean Corpuscular Hemoglobin 27.3, Mean Corpuscular Hemoglobin Concent 32.1, Red Cell Distribution Width 14.8, Platelet Count 168, Mean Platelet Volume 8.4, Neutrophils (%) (Auto) 60.6, Lymphocytes (%) (Auto) 24.7, Monocytes (%) (Auto) 10.6H, Eosinophils (%) (Auto) 2.7, Basophils (%) ( Auto) 1.5, Sodium Level 139, Potassium Level 4.6, Chloride Level 106, Carbon Dioxide Level 22, Anion Gap 11, Blood Urea Nitrogen 11, Creatinine 0.8, Estimat Glomerular Filtration Rate > 60, Glucose Level 110H, Calcium Level 10.1 Height (Feet): 5 Height (Inches): 7.00 Weight (Pounds): 163 Cardiovascular: normal rate Respiratory/Chest: lungs clear Sampson Leggett MD Nov 18, 2017 22:00
[2017-11-19] VITALS (7 sets, daily range): BP systolic 104–144; BP diastolic 56–69
[2017-11-19] MEDS: D5 1/2NS w/KCl 40meq 1000ml 1,000 ML IV SCH ×2 (06:27→11:16)
[2017-11-19 07:35] LABS: ANION GAP 10 mmol/L (5-15); BLOOD UREA NITROGEN 13 mg/dL (7-18); CALCIUM 10.6 MG/DL (8.5-10.1); CARBON DIOXIDE 23 MMOL/L (21-32); CHLORIDE 104 MMOL/L (98-107); CREATININE 0.8 MG/DL (0.55-1.30); POTASSIUM 4.8 MMOL/L (3.5-5.1); SODIUM 137 MMOL/L (136-145)
[2017-11-19 07:36] LABS: HEMATOCRIT 44.2 % (37.0-47.0); HEMOGLOBIN 14.2 G/DL (12.0-16.0); MEAN CORPUSCULAR VOLUME 85 FL (80-99); MONOCYTES % (AUTO) 10.2 % (1.0-10.0); NEUTROPHILS % (AUTO) 66.9 % (45.0-75.0); PLATELET COUNT 181 K/UL (150-450); RED BLOOD COUNT 5.21 M/UL (4.20-5.40); RED CELL DISTRIBUTION WIDTH 15.4 % (11.6-14.8); WHITE BLOOD COUNT 6.4 K/UL (4.8-10.8)
[2017-11-19] MEDS: Docusate 100mg/10ml Liq NG SCH ×3 (08:52→17:07)
[2017-11-19] MEDS: LORazepam 1mg tab NG PRN ×2 (08:53→17:07)
--- NOTE | 2017-11-19 09:56 | GI Progress Note ---
Assessment/Plan Problems: (1) Encephalopathy due to metabolic factor or toxin SNOMED: 901735644 (2) Constipation ICD Codes: K59.00 - Constipation, unspecified SNOMED: 49390998 (3) Altered level of consciousness ICD Codes: R40.4 - Transient alteration of awareness SNOMED: 4509758 (4) Dementia ICD Codes: F03.90 - Unspecified dementia without behavioral disturbance SNOMED: 38008003 (5) Generalized weakness ICD Codes: R53.1 - Weakness SNOMED: 50976746 Status: unchanged Status Narrative Discussed with Dr. Doan. Assessment/Plan PEG cancelled, wishes patient to be transferred to [facility] for neuro work up. cont plan of care supportive care at this time, follow up psych recs NGT Feeds Neurology f/u bowel regime >> colace + miralax ppi zofran prn fu labs The patient was seen and examined at bedside and all new and available data was reviewed in the patients chart. I agree with the above findings, impression and plan. (Patient seen earlier today. Signature stamp does not reflect patient encounter time.). - Thang Doan MD Subjective Subjective limited Objective Last 24 Hour Vital Signs Date Time Temp Pulse Resp B/P (MAP) Pulse Ox O2 Delivery O2 Flow Rate FiO2 11/19/17 09:00 Room Air 11/19/17 08:00 98.1 99 22 104/56 (72) 98 98.1 11/19/17 06:17 97.9 84 20 109/59 (76) 99 97.9 11/19/17 04:00 98.0 82 20 144/64 (90) 97 98.0 11/19/17 04:00 75 11/19/17 00:00 98.2 79 18 137/61 (86) 97 98.2 11/19/17 00:00 85 11/18/17 21:00 Room Air 11/18/17 20:00 98.2 85 18 127/70 (89) 96 98.2 11/18/17 20:00 82 11/18/17 16:00 97.3 80 20 136/84 (101) 97 97.3 11/18/17 16:00 79 11/18/17 12:00 97.8 83 20 157/87 (110) 96 97.8 9/26/18 12:00 77 Intake and Output 11/18/17 11/19/17 19:00 07:00 Intake Total 1270 ml 540 ml Output Total 1000 ml 100 ml Balance 270 ml 440 ml Free Water 230 ml IV Total 600 ml 500 ml Tube Feeding 440 ml 40 ml Output Urine Total 1000 ml 100 ml # Voids 1 # Bowel Movements 2 1 Laboratory Tests Test 11/19/17 06:58 White Blood Count 6.4 K/UL (4.8-10.8) Red Blood Count 5.21 M/UL (4.20-5.40) Hemoglobin 14.2 G/DL (12.0-16.0) Hematocrit 44.2 % (37.0-47.0) Mean Corpuscular Volume 85 FL (80-99) Mean Corpuscular Hemoglobin 27.1 PG (27.0-31.0) Mean Corpuscular Hemoglobin Concent 32.1 G/DL (32.0-36.0) Red Cell Distribution Width 15.4 % (11.6-14.8) H Platelet Count 181 K/UL (150-450) Mean Platelet Volume 8.4 FL (6.5-10.1) Neutrophils (%) (Auto) 66.9 % (45.0-75.0) Lymphocytes (%) (Auto) 20.0 % (20.0-45.0) Monocytes (%) (Auto) 10.2 % (1.0-10.0) H Eosinophils (%) (Auto) 2.0 % (0.0-3.0) Basophils (%) (Auto) 1.0 % (0.0-2.0) Sodium Level 137 MMOL/L (136-145) Potassium Level 4.8 MMOL/L (3.5-5.1) Chloride Level 104 MMOL/L (98-107) Carbon Dioxide Level 23 MMOL/L (21-32) Anion Gap 10 mmol/L (5-15) Blood Urea Nitrogen 13 mg/dL (7-18) Creatinine 0.8 MG/DL (0.55-1.30) Estimat Glomerular Filtration Rate > 60 mL/min (>60) Glucose Level 122 MG/DL (74-106) H Calcium Level 10.6 MG/DL (8.5-10.1) H Height (Feet): 5 Height (Inches): 7.00 Weight (Pounds): 163 General Appearance: lethargic, confused Cardiovascular: normal rate Respiratory/Chest: normal breath sounds, no respiratory distress Abdominal Exam: soft Lynette Colon NP Nov 19, 2017 09:56
--- NOTE | 2017-11-19 15:02 | Infectious Diseases Prog Note ---
Assessment/Plan Assessment/Plan A; Pyuria, doubt UTI Altered mental status Dementia, rapidly progressive VRE colonization P; Failed LP attempts Waiting transfer to [facility] Subjective ROS Limited/Unobtainable: Yes Neurologic: Reports: confusion, other - restraint by mittens Allergies: Coded Allergies: IODINE (Verified Allergy, Unknown, 11/10/17) Objective Vital Signs Last 24 Hour Vital Signs Date Time Temp Pulse Resp B/P (MAP) Pulse Ox O2 Delivery O2 Flow Rate FiO2 11/19/17 12:00 97.9 85 20 115/66 (82) 98 97.9 11/19/17 09:00 Room Air 11/19/17 08:00 98.1 99 22 104/56 (72) 98 98.1 11/19/17 06:17 97.9 84 20 109/59 (76) 99 97.9 11/19/17 04:00 98.0 82 20 144/64 (90) 97 98.0 11/19/17 04:00 75 11/19/17 00:00 98.2 79 18 137/61 (86) 97 98.2 11/19/17 00:00 85 11/18/17 21:00 Room Air 11/18/17 20:00 98.2 85 18 127/70 (89) 96 98.2 11/18/17 20:00 82 11/18/17 16:00 97.3 80 20 136/84 (101) 97 97.3 11/18/17 16:00 79 Height (Feet): 5 Height (Inches): 7.00 Weight (Pounds): 163 HEENT: mucous membranes moist Respiratory/Chest: lungs clear Cardiovascular: normal rate Abdomen: soft, non tender, other - NG tube feeding Extremities: no edema Neurologic/Psychiatric: disoriented, aphasia Laboratory Tests Test 11/19/17 06:58 White Blood Count 6.4 K/UL (4.8-10.8) Red Blood Count 5.21 M/UL (4.20-5.40) Hemoglobin 14.2 G/DL (12.0-16.0) Hematocrit 44.2 % (37.0-47.0) Mean Corpuscular Volume 85 FL (80-99) Mean Corpuscular Hemoglobin 27.1 PG (27.0-31.0) Mean Corpuscular Hemoglobin Concent 32.1 G/DL (32.0-36.0) Red Cell Distribution Width 15.4 % (11.6-14.8) H Platelet Count 181 K/UL (150-450) Mean Platelet Volume 8.4 FL (6.5-10.1) Neutrophils (%) (Auto) 66.9 % (45.0-75.0) Lymphocytes (%) (Auto) 20.0 % (20.0-45.0) Monocytes (%) (Auto) 10.2 % (1.0-10.0) H Eosinophils (%) (Auto) 2.0 % (0.0-3.0) Basophils (%) (Auto) 1.0 % (0.0-2.0) Sodium Level 137 MMOL/L (136-145) Potassium Level 4.8 MMOL/L (3.5-5.1) Chloride Level 104 MMOL/L (98-107) Carbon Dioxide Level 23 MMOL/L (21-32) Anion Gap 10 mmol/L (5-15) Blood Urea Nitrogen 13 mg/dL (7-18) Creatinine 0.8 MG/DL (0.55-1.30) Estimat Glomerular Filtration Rate > 60 mL/min (>60) Glucose Level 122 MG/DL (74-106) H Calcium Level 10.6 MG/DL (8.5-10.1) H Current Medications Medications (Trade) Dose Ordered Sig/Claritza Route PRN Reason Start Time Stop Time Status Last Admin Dose Admin Acetaminophen (Tylenol) 650 mg Q4H PRN ORAL Mild Pain/Temp > 100.5 11/19/17 05:52 12/10/17 05:51 11/19/17 14:12 Bisacodyl (Dulcolax) 10 mg NEEDED PRN RECTAL Constipation 11/19/17 05:52 12/10/17 05:51 Clonidine HCl (Catapres Tab) 0.1 mg Q6H PRN ORAL For High Blood Pressure 11/19/17 06:00 12/19/17 05:59 Dextrose/ Electrolytes 1,000 ml @ 50 mls/hr Q20H IV 11/19/17 06:00 12/13/17 05:59 11/19/17 11:16 Docusate Sodium (Colace) 100 mg THREE TIMES A DAY NG 11/19/17 09:00 12/13/17 17:59 11/19/17 14:11 Famotidine (Pepcid I.v.) 20 mg Q12HR IVP 11/19/17 09:00 12/12/17 20:59 11/19/17 08:52 Lorazepam (Ativan) 1 mg Q6H PRN NG For Anxiety 11/19/17 05:56 11/20/17 05:55 11/19/17 08:53 Polyethylene Glycol (Miralax) 17 gm BEDTIME ORAL 11/19/17 21:00 12/12/17 20:59 Risperidone (RisperDAL) 1 mg BEDTIME PRN ORAL agitation 11/19/17 05:51 12/13/17 05:50 Kevon Thurston MD Nov 19, 2017 15:02
--- NOTE | 2017-11-19 15:14 | Nephrology Progress Note ---
Assessment/Plan Problem List: (1) Hypokalemia (2) Dementia (3) UTI (urinary tract infection) (4) Encephalopathy due to metabolic factor or toxin Assessment Severe Encephalopathy rapidly progressive dementia, ? Encephalitis Generalized weakness Hypokalemia UTI (urinary tract infection) Dementia hypokalemia Plan NPO except meds- tube feeding IV fluid Adjust mind altering meds start PO when more awake discussed with RN due transfer to a higher level of care ? NGT ? higher level care? Subjective ROS Limited/Unobtainable: Yes Objective Objective Last 24 Hour Vital Signs Date Time Temp Pulse Resp B/P (MAP) Pulse Ox O2 Delivery O2 Flow Rate FiO2 11/19/17 12:00 97.9 85 20 115/66 (82) 98 97.9 11/19/17 09:00 Room Air 11/19/17 08:00 98.1 99 22 104/56 (72) 98 98.1 11/19/17 06:17 97.9 84 20 109/59 (76) 99 97.9 11/19/17 04:00 98.0 82 20 144/64 (90) 97 98.0 11/19/17 04:00 75 11/19/17 00:00 98.2 79 18 137/61 (86) 97 98.2 11/19/17 00:00 85 11/18/17 21:00 Room Air 11/18/17 20:00 98.2 85 18 127/70 (89) 96 98.2 11/18/17 20:00 82 11/18/17 16:00 97.3 80 20 136/84 (101) 97 97.3 11/18/17 16:00 79 Intake and Output 11/18/17 11/19/17 19:00 07:00 Intake Total 1270 ml 540 ml Output Total 1000 ml 100 ml Balance 270 ml 440 ml Free Water 230 ml IV Total 600 ml 500 ml Tube Feeding 440 ml 40 ml Output Urine Total 1000 ml 100 ml # Voids 1 # Bowel Movements 2 1 Laboratory Tests 11/19/17 06:58: White Blood Count 6.4, Red Blood Count 5.21, Hemoglobin 14.2, Hematocrit 44.2, Mean Corpuscular Volume 85, Mean Corpuscular Hemoglobin 27.1, Mean Corpuscular Hemoglobin Concent 32.1, Red Cell Distribution Width 15.4H, Platelet Count 181, Mean Platelet Volume 8.4, Neutrophils (%) (Auto) 66.9, Lymphocytes (%) (Auto) 20.0, Monocytes (%) (Auto) 10.2H, Eosinophils (%) (Auto) 2.0, Basophils (%) ( Auto) 1.0, Sodium Level 137, Potassium Level 4.8, Chloride Level 104, Carbon Dioxide Level 23, Anion Gap 10, Blood Urea Nitrogen 13, Creatinine 0.8, Estimat Glomerular Filtration Rate > 60, Glucose Level 122H, Calcium Level 10.6H Height (Feet): 5 Height (Inches): 7.00 Weight (Pounds): 163 General Appearance: no apparent distress Cardiovascular: normal rate Respiratory/Chest: decreased breath sounds Abdomen: soft Neurologic: other - MS unchanged Objective no other change Nahum Connolly MD Nov 19, 2017 15:14
--- NOTE | 2017-11-19 20:50 | Neurology Progress Note ---
Interim History Interim History Interim History Ms. Ortega is poorly responsive. She wakes up on deep painful stimuli. When she does wake up she moans and groans. She is severely cognitively impoverished. She is motorically challenged. A LP was attempted on 11/13/17 but she was moving constantly and thus the radiologist was unable to perform it. A LP was re-attempted on 11/16/17 by the radiologist - unfortunately the SAS could not be entered. There has been no significant change in her condition. Her transfer to [facility] was rejected by the neurology resident. We are waiting to transfer her to [facility] for further management. Review of Systems Neuro Review of Systems Unable to obtain Objective Physical Exam Last Vital Signs Date Time Temp Pulse Resp B/P (MAP) Pulse Ox O2 Delivery O2 Flow Rate FiO2 11/19/17 15:39 98.0 88 18 119/68 (85) 97 98.0 11/19/17 09:00 Room Air Laboratory Tests Test 11/19/17 06:58 White Blood Count 6.4 K/UL (4.8-10.8) Red Blood Count 5.21 M/UL (4.20-5.40) Hemoglobin 14.2 G/DL (12.0-16.0) Hematocrit 44.2 % (37.0-47.0) Mean Corpuscular Volume 85 FL (80-99) Mean Corpuscular Hemoglobin 27.1 PG (27.0-31.0) Mean Corpuscular Hemoglobin Concent 32.1 G/DL (32.0-36.0) Red Cell Distribution Width 15.4 % (11.6-14.8) H Platelet Count 181 K/UL (150-450) Mean Platelet Volume 8.4 FL (6.5-10.1) Neutrophils (%) (Auto) 66.9 % (45.0-75.0) Lymphocytes (%) (Auto) 20.0 % (20.0-45.0) Monocytes (%) (Auto) 10.2 % (1.0-10.0) H Eosinophils (%) (Auto) 2.0 % (0.0-3.0) Basophils (%) (Auto) 1.0 % (0.0-2.0) Sodium Level 137 MMOL/L (136-145) Potassium Level 4.8 MMOL/L (3.5-5.1) Chloride Level 104 MMOL/L (98-107) Carbon Dioxide Level 23 MMOL/L (21-32) Anion Gap 10 mmol/L (5-15) Blood Urea Nitrogen 13 mg/dL (7-18) Creatinine 0.8 MG/DL (0.55-1.30) Estimat Glomerular Filtration Rate > 60 mL/min (>60) Glucose Level 122 MG/DL (74-106) H Calcium Level 10.6 MG/DL (8.5-10.1) H Neurologic Exam Objective PHYSICAL EXAMINATION: GENERAL: She is a well-developed, well-nourished, black lady, lying in bed, in no acute distress. HEAD: Normocephalic and atraumatic. EENT: Examination benign. NECK: She exhibited significant neck rigidity in all directions. NEUROLOGIC EXAMINATION: MENTAL STATUS EXAMINATION: She only responded deep painful stimuli with arousal. She only moaned and groaned and withdrew the appropriate extremity, but did not respond in any other way. Further mental status testing was impossible. SPEECH: Could not be tested. LANGUAGE: Could not be tested. CRANIAL NERVE EXAMINATION: II: She did not blink to threat. III, IV & : The external ocular movements were present on oculocephalic maneuvers. The pupils were 3 mm in diameter, equal, round, regular, and reactive sluggishly to light. V & VII: The corneal reflexes were present and symmetrical bilaterally. VIII: She did not respond to sounds and had no nystagmus. IX & X: The gag reflex was not tested. XI: The sternocleidomastoids and trapezii did function. XII: The tongue was in the midline. MOTOR SYSTEM: The tone was increased in all four extremities with gegenhalten and possibly a degree of spasticity. Examination of muscle mass revealed generalized muscle wasting. Examination of power was impossible to perform because even on applying deep painful stimuli only nonpurposeful withdrawal of the extremity was made. SENSORY EXAMINATION: She responded minimally to deep pain with withdrawal of the appropriate extremity. REFLEXES: 1+ and bilaterally symmetrical at the biceps, triceps, brachioradialis , and knees, 0 at both ankles. The plantar responses were extensor bilaterally. COORDINATION, STANCE & GAIT: Could not be tested. Impression/Recommendations Diagnostic Impression 1. Ms. Erica Ortega is a 72-year-old, black lady, of unknown handedness, who does have a past history of dementia and behavioral problems who was hospitalized for an alteration in her mental state. Of note is that, she was recently started on Nuedexta for behavioral problems. On being evaluated in the emergency room, she was noted to have a urinary tract infection and is on antibiotics for it. 2. As per Dr. Duke, her psychiatrist, she was worked up at [facility] for a rapidly progressive dementia and there was a question as to whether she had an encephalitis. However no LP was done. 3. I had a chance to talk to her and brother and sister. They tell me she was a normally functioning person until July 2017. In August 2017 she had to be hospitalized for language problems, confusion, behavioral problems, episodes of fear, and loss of ability to walk. 4. She is poorly responsive. She only wakes up on deep pain. When she does wake up she moans and groans. She is severely cognitively impoverished. She is motorically challenged. A LP was attempted on 11/13/17 but she was moving constantly and thus the radiologist was unable to perform it. A LP was re- attempted on 11/16/17 by the radiologist - unfortunately the SAS could not be entered. There has been no significant change in her condition. 5. On neurological examination, at this time, she exhibits neck rigidity in all directions. She only wakes up momentarily on deep painful stimuli. She only moans and groans and withdraws the appropriate extremity on deep painful stimuli. She however does not demonstrate any focal or lateralizing neurological findings. 6. A CT scan of the brain performed on 11/10/2017 reveals atrophy and deep white matter changes, but no acute pathology. 7. Laboratory data revealed a relatively normal CBC. The chemistry panel revealed a low potassium at 2.8, a high chloride at 111 and an elevated glucose of 123. Her B12 level is normal at 460. Her folate was normal at 10.3 and her TSH was normal at 0.746. Her urinalysis however was abnormal with 1+ leukocyte esterase, 5-10 RBCs, 2-4 WBCs with few urinary bacteria. 8. The EEG done on 11/18/17 revealed a severe encephalopathy with possibly a toxic component as evidenced by triphasic waveforms. 9. The patient's history, neurological examination, laboratory data, and imaging studies are most compatible with a rapidly progressive dementia which has not been worked up thoroughly at this time. Recommendations 1. Continue present management. 2. Transfer her to [facility] for further management. 3. She should also be worked up for anti NMDA receptor encephalitis. 4. A Lumbar puncture should be performed and the CSF should be sent for indlent infectious processes and protein 14-3-3. 5. An MRI with volumetric analysis and a brain PET may also be useful when she gets to [facility]. 6. Once an accurate diagnosis is made then further management plans can be made. Jyoti Amos M.D., M.S.P.H. JYOTI AMOS Nov 19, 2017 20:50
--- NOTE | 2017-11-19 21:17 | Consultation ---
History of Present Illness General Date patient seen: Nov 19, 2017 Present Illness Allergies: Coded Allergies: IODINE (Verified Allergy, Unknown, 11/10/17) Medication History Scheduled Bisacodyl* (Dulcolax*), 10 MG RECTAL PRN, (Reported) Clonidine Hcl* (Catapres*), 0.1 MG ORAL EVERY 6 HOURS, (Reported) Dextromethorphan Hbr/Quinidine (Nuedexta 20-10 Mg Capsule), 1 EACH PO DAILY, ( Reported) Docusate Sodium* (Docusate Sodium*), 100 MG ORAL PRN, (Reported) Docusate Sodium* (Docusate Sodium*), 100 MG ORAL TWICE A DAY, (Reported) Magnesium Hydroxide* (Milk Of Magnesia*), 30 ML ORAL DAILY, (Reported) Metoprolol Tartrate* (Metoprolol Tartrate*), 25 MG ORAL DAILY, (Reported) Multivitamin With Minerals (Multivitamins With Minerals*), 1 TAB ORAL DAILY, ( Reported) Na Phos,M-B/Na Phos,Di-Ba* (Fleet Enema*), 133 ML RECTAL DAILY, (Reported) Olanzapine* (Zyprexa*), 2.5 MG ORAL DAILY, (Reported) Sennosides (Laura-Palomo), 8.6 MG PO DAILY, (Reported) Patient History Healthcare decision maker Resuscitation status Full Code Advanced Directive on File No Physical Exam Last 24 Hour Vital Signs Date Time Temp Pulse Resp B/P (MAP) Pulse Ox O2 Delivery O2 Flow Rate FiO2 11/19/17 15:39 98.0 88 18 119/68 (85) 97 98.0 11/19/17 12:00 97.9 85 20 115/66 (82) 98 97.9 11/19/17 09:00 Room Air 11/19/17 08:00 98.1 99 22 104/56 (72) 98 98.1 11/19/17 06:17 97.9 84 20 109/59 (76) 99 97.9 11/19/17 04:00 98.0 82 20 144/64 (90) 97 98.0 11/19/17 04:00 75 11/19/17 00:00 98.2 79 18 137/61 (86) 97 98.2 11/19/17 00:00 85 Intake and Output 11/18/17 11/19/17 19:00 07:00 Intake Total 1270 ml 560 ml Output Total 1000 ml 100 ml Balance 270 ml 460 ml Free Water 230 ml IV Total 600 ml 500 ml Tube Feeding 440 ml 60 ml Output Urine Total 1000 ml 100 ml # Voids 1 # Bowel Movements 2 1 Laboratory Tests Test 11/19/17 06:58 White Blood Count 6.4 K/UL (4.8-10.8) Red Blood Count 5.21 M/UL (4.20-5.40) Hemoglobin 14.2 G/DL (12.0-16.0) Hematocrit 44.2 % (37.0-47.0) Mean Corpuscular Volume 85 FL (80-99) Mean Corpuscular Hemoglobin 27.1 PG (27.0-31.0) Mean Corpuscular Hemoglobin Concent 32.1 G/DL (32.0-36.0) Red Cell Distribution Width 15.4 % (11.6-14.8) H Platelet Count 181 K/UL (150-450) Mean Platelet Volume 8.4 FL (6.5-10.1) Neutrophils (%) (Auto) 66.9 % (45.0-75.0) Lymphocytes (%) (Auto) 20.0 % (20.0-45.0) Monocytes (%) (Auto) 10.2 % (1.0-10.0) H Eosinophils (%) (Auto) 2.0 % (0.0-3.0) Basophils (%) (Auto) 1.0 % (0.0-2.0) Sodium Level 137 MMOL/L (136-145) Potassium Level 4.8 MMOL/L (3.5-5.1) Chloride Level 104 MMOL/L (98-107) Carbon Dioxide Level 23 MMOL/L (21-32) Anion Gap 10 mmol/L (5-15) Blood Urea Nitrogen 13 mg/dL (7-18) Creatinine 0.8 MG/DL (0.55-1.30) Estimat Glomerular Filtration Rate > 60 mL/min (>60) Glucose Level 122 MG/DL (74-106) H Calcium Level 10.6 MG/DL (8.5-10.1) H Height (Feet): 5 Height (Inches): 7.00 Weight (Pounds): 163 Medications Current Medications Medications (Trade) Dose Ordered Sig/Claritza Route PRN Reason Start Time Stop Time Status Last Admin Dose Admin Acetaminophen (Tylenol) 650 mg Q4H PRN ORAL Mild Pain/Temp > 100.5 11/19/17 05:52 12/10/17 05:51 11/19/17 14:12 Bisacodyl (Dulcolax) 10 mg NEEDED PRN RECTAL Constipation 11/19/17 05:52 12/10/17 05:51 Clonidine HCl (Catapres Tab) 0.1 mg Q6H PRN ORAL For High Blood Pressure 11/19/17 06:00 12/19/17 05:59 Dextrose/ Electrolytes 1,000 ml @ 50 mls/hr Q20H IV 11/19/17 06:00 12/13/17 05:59 11/19/17 11:16 Docusate Sodium (Colace) 100 mg THREE TIMES A DAY NG 11/19/17 09:00 12/13/17 17:59 11/19/17 17:07 Famotidine (Pepcid I.v.) 20 mg Q12HR IVP 11/19/17 09:00 12/12/17 20:59 11/19/17 08:52 Lorazepam (Ativan) 1 mg Q6H PRN NG For Anxiety 11/19/17 05:56 11/20/17 05:55 11/19/17 17:07 Polyethylene Glycol (Miralax) 17 gm BEDTIME ORAL 11/19/17 21:00 12/12/17 20:59 Risperidone (RisperDAL) 1 mg BEDTIME PRN ORAL agitation 11/19/17 05:51 12/13/17 05:50 Assessment/Plan Assessment/Plan (1) Encephalopathy due to metabolic factor or toxin (2) Dementia (3) Altered level of consciousness seen dictated Jesse Aleman Nov 19, 2017 21:17
[2017-11-19] MEDS: Miralax 17gm pkt ORAL SCH (21:23)
--- NOTE | 2017-11-19 21:40 | General Progress Note ---
Assessment/Plan Problem List: (1) Hypokalemia ICD Codes: E87.6 - Hypokalemia SNOMED: 64376057 (2) Dementia ICD Codes: F03.90 - Unspecified dementia without behavioral disturbance SNOMED: 55908876 (3) Altered level of consciousness ICD Codes: R40.4 - Transient alteration of awareness SNOMED: 1571451 (4) Encephalopathy due to metabolic factor or toxin SNOMED: 474630232 Status: unchanged Assessment/Plan talked to [facility] neurologist dr mujica her case and told him that we did mri at [facility] and attmepted multiple LP without success and have asked to get records from [facility] i have discussed dr yoo and dr santo mujica her treatment plan so far neither [facility] or [facility] has accepted her despite case [facility] attempts to transfer her per family request moves a lot during LP ams of unknown etiology waxing and waning encelphalopathy afebrile Subjective ROS Limited/Unobtainable: Yes Allergies: Coded Allergies: IODINE (Verified Allergy, Unknown, 11/10/17) Subjective waxing and waning mental state agitated Objective Last 24 Hour Vital Signs Date Time Temp Pulse Resp B/P (MAP) Pulse Ox O2 Delivery O2 Flow Rate FiO2 11/19/17 20:00 98.8 78 20 115/69 (84) 100 98.8 11/19/17 15:39 98.0 88 18 119/68 (85) 97 98.0 11/19/17 12:00 97.9 85 20 115/66 (82) 98 97.9 11/19/17 09:00 Room Air 11/19/17 08:00 98.1 99 22 104/56 (72) 98 98.1 11/19/17 06:17 97.9 84 20 109/59 (76) 99 97.9 11/19/17 04:00 98.0 82 20 144/64 (90) 97 98.0 11/19/17 04:00 75 11/19/17 00:00 98.2 79 18 137/61 (86) 97 98.2 11/19/17 00:00 85 Intake and Output 11/18/17 11/19/17 19:00 07:00 Intake Total 1270 ml 560 ml Output Total 1000 ml 100 ml Balance 270 ml 460 ml Free Water 230 ml IV Total 600 ml 500 ml Tube Feeding 440 ml 60 ml Output Urine Total 1000 ml 100 ml # Voids 1 # Bowel Movements 2 1 Laboratory Tests 11/19/17 06:58: White Blood Count 6.4, Red Blood Count 5.21, Hemoglobin 14.2, Hematocrit 44.2, Mean Corpuscular Volume 85, Mean Corpuscular Hemoglobin 27.1, Mean Corpuscular Hemoglobin Concent 32.1, Red Cell Distribution Width 15.4H, Platelet Count 181, Mean Platelet Volume 8.4, Neutrophils (%) (Auto) 66.9, Lymphocytes (%) (Auto) 20.0, Monocytes (%) (Auto) 10.2H, Eosinophils (%) (Auto) 2.0, Basophils (%) ( Auto) 1.0, Sodium Level 137, Potassium Level 4.8, Chloride Level 104, Carbon Dioxide Level 23, Anion Gap 10, Blood Urea Nitrogen 13, Creatinine 0.8, Estimat Glomerular Filtration Rate > 60, Glucose Level 122H, Calcium Level 10.6H Height (Feet): 5 Height (Inches): 7.00 Weight (Pounds): 163 Sampson Leggett MD Nov 19, 2017 21:40
--- NOTE | 2017-11-19 22:54 | Cardiology Progress Note ---
Assessment/Plan Status: stable Assessment/Plan Assessment/Plan 1. Non-sustained ventricular tachycardia. Ruled out for myocardial infarction. Echo showed EF 65% 2. Hypokalemia, replaced. 3. Encephalopathy, metabolic versus toxic. FU by Dr. Amos. 5 attempts at LP failed. 4. Urinary tract infection. 5. Dementia. 6. Dysphagia. The patient has a NG-tube. Followed up by Dr. Doan. Refused percutaneous endoscopic gastrostomy placement. Subjective Cardiovascular: Reports: no symptoms Respiratory: Reports: no symptoms Gastrointestinal/Abdominal: Reports: no symptoms Genitourinary: Reports: no symptoms Subjective Currently asleep, family at bedside, no distress Objective Last 24 Hour Vital Signs Date Time Temp Pulse Resp B/P (MAP) Pulse Ox O2 Delivery O2 Flow Rate FiO2 11/19/17 21:00 Room Air 11/19/17 20:00 98.8 78 20 115/69 (84) 100 98.8 11/19/17 15:39 98.0 88 18 119/68 (85) 97 98.0 11/19/17 12:00 97.9 85 20 115/66 (82) 98 97.9 11/19/17 09:00 Room Air 11/19/17 08:00 98.1 99 22 104/56 (72) 98 98.1 11/19/17 06:17 97.9 84 20 109/59 (76) 99 97.9 11/19/17 04:00 98.0 82 20 144/64 (90) 97 98.0 11/19/17 04:00 75 11/19/17 00:00 98.2 79 18 137/61 (86) 97 98.2 11/19/17 00:00 85 General Appearance: no apparent distress EENT: PERRL/EOMI, normal ENT inspection Neck: non-tender, normal alignment, supple, normal inspection, no JVD Rhythm: NSR Cardiovascular: normal peripheral pulses, normal rate Respiratory/Chest: chest wall non-tender, lungs clear Abdomen: normal bowel sounds, non tender Extremities: normal range of motion, non-tender, normal inspection 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 normal, no motor/sensory deficits Intake and Output 11/18/17 11/19/17 19:00 07:00 Intake Total 1270 ml 560 ml Output Total 1000 ml 100 ml Balance 270 ml 460 ml Free Water 230 ml IV Total 600 ml 500 ml Tube Feeding 440 ml 60 ml Output Urine Total 1000 ml 100 ml # Voids 1 # Bowel Movements 2 1 Laboratory Tests Test 11/19/17 06:58 White Blood Count 6.4 K/UL (4.8-10.8) Red Blood Count 5.21 M/UL (4.20-5.40) Hemoglobin 14.2 G/DL (12.0-16.0) Hematocrit 44.2 % (37.0-47.0) Mean Corpuscular Volume 85 FL (80-99) Mean Corpuscular Hemoglobin 27.1 PG (27.0-31.0) Mean Corpuscular Hemoglobin Concent 32.1 G/DL (32.0-36.0) Red Cell Distribution Width 15.4 % (11.6-14.8) H Platelet Count 181 K/UL (150-450) Mean Platelet Volume 8.4 FL (6.5-10.1) Neutrophils (%) (Auto) 66.9 % (45.0-75.0) Lymphocytes (%) (Auto) 20.0 % (20.0-45.0) Monocytes (%) (Auto) 10.2 % (1.0-10.0) H Eosinophils (%) (Auto) 2.0 % (0.0-3.0) Basophils (%) (Auto) 1.0 % (0.0-2.0) Sodium Level 137 MMOL/L (136-145) Potassium Level 4.8 MMOL/L (3.5-5.1) Chloride Level 104 MMOL/L (98-107) Carbon Dioxide Level 23 MMOL/L (21-32) Anion Gap 10 mmol/L (5-15) Blood Urea Nitrogen 13 mg/dL (7-18) Creatinine 0.8 MG/DL (0.55-1.30) Estimat Glomerular Filtration Rate > 60 mL/min (>60) Glucose Level 122 MG/DL (74-106) H Calcium Level 10.6 MG/DL (8.5-10.1) H Herman French MD Nov 19, 2017 22:54
--- NOTE | 2017-11-19 23:45 | Consultation ---
DATE OF CONSULTATION: 11/19/2017 PAIN MANAGEMENT CONSULTATION: CONSULTING PHYSICIAN: Ok Rosario M.D. REFERRING PHYSICIAN: Sampson Leggett M.D. PHYSICIAN VALET RUNNER: Remington Coleman CHIEF COMPLAINT: Altered mental status. HISTORY OF PRESENT ILLNESS: This is a 72-year-old female, who has been seen on the Med/Surg floor of [facility] for initial comprehensive pain management consultation. The patient was admitted under the care of Dr. Leggett with increased confusion. Has a history of dementia. Waiting for a lumbar puncture to rule out encephalopathy due to metabolic or toxin and lumbar puncture was unable to be done due to the patient's severe agitation. She is being seen by psychiatrist, Dr. Duke. Receiving Ativan as needed as well. She will be most likely transferred to [facility] for additional imaging and lumbar puncture to be done there. We were consulted due to the patient's nurse feeling the patient had signs of pain. The patient at this time is in the bed. No signs of pain or distress. NG tube is in place. Has mittens on her hands with harnesses. No signs of distress or pain. Vital signs also show no signs of pain or distress. Blood pressure being 119/68, heart rate being 88, oxygen saturation being 97%, and respiratory rate being 18 as well as Tylenol 650 mg tablet being given to the patient where the FLACC score was 6 prior to being given and then after being at 3, which is adequate pain reduction at this time. I explained to the nurse, Anthony that increased pain medications such as opioids will cause increased confusion and this would not be beneficial to the patient's current status. We will continue the Tylenol as needed. Waiting for the patient to be transferred to [facility] for continued intervention for the cause of the acute encephalopathy. PAST MEDICAL HISTORY: As per chart is dementia, psychosis, constipation, and hypertension. SOCIAL HISTORY: Unable to obtain. ALLERGIES: As per chart, iodine. MEDICATIONS: Dulcolax, Catapres, Nuedexta, milk of magnesia, metoprolol, multivitamin, Fleet Enema, Zyprexa, and Laura-Palomo. REVIEW OF SYSTEMS: Unable to obtain due to the patient's status. PHYSICAL EXAMINATION: VITAL SIGNS: Blood pressure 119/68, heart rate is 88, oxygen saturation is 97%, respiratory rate is 18, and temperature is 98 degrees Fahrenheit. HEENT: PERRLA. NECK: Range of motion is full in all directions. LUNGS: Decreased breath sounds bilaterally. HEART: S1 and S2 regular. ABDOMEN: Obese. EXTREMITIES: No cyanosis. No clubbing. No edema. ASSESSMENT AND PLAN: This is a 72-year-old female with dementia, acute encephalopathy due to metabolic factor or toxin, and altered level of consciousness. The patient will be continued on Tylenol 650 mg tablet every four hours as needed for pain. The patient again was discussed with the nurse at bedside and was discussed with Dr. Rosario and he concurred. We will follow the patient. Thank you very much for the courtesy of this consultation. Ok Rosairo M.D. ISIDRO Coleman DR: ANNIE JOB#: [id number] CC:
[2017-11-20] VITALS: BP 96/54
--- NOTE | 2017-11-20 02:45 | Electroencephalogram ---
DATE OF PROCEDURE: 11/18/2017 REQUESTING PHYSICIAN: Sampson Leggett M.D. HISTORY: This EEG was performed on a 72-year-old lady with a rapidly progressive cognitive decline over the last few months. The patient has had a significant decline in both cognitive and motor function and thus this EEG was performed to evaluate the patient for the degree and type of cerebral dysfunction. TECHNICAL NOTE: This EEG was performed on a [employer] with electrodes placed on the scalp according to the International 10-20 system. Scalp to scalp montages were used. The EEG was technically satisfactory and was performed while the patient was in a poorly responsive state. OBSERVATIONS: In the poorly responsive state, the background activity consisted of 1.5-2.5 Hz delta with 4-5 Hz theta activity. Throughout the tracing, a few interspersed triphasic waveforms with an anterior to posterior gradient were also seen. When the patient was stimulated, no significant change in the EEG background was noted. No definite focal abnormalities or epileptiform discharges were seen IMPRESSION: This is an abnormal EEG characterized by: 1. Slowing of the background in the 1.5 -2 Hz delta and 4-5 Hz theta range. 2. The presence of interspersed triphasic waveforms. 3. No reactivity to external stimulation. COMMENT: This study is consistent with an encephalopathy of severe degree with possibly toxic and/or metabolic component. Kenny Amos M.D., M.S.P.H. DR: KELL JOB#: [id number] [facility] CENTERJaneth
[2017-11-20 04:00] VITALS: BP 90/46
[2017-11-20] MEDS: D5 1/2NS w/KCl 40meq 1000ml 1,000 ML IV SCH (05:31)
[2017-11-20 07:27] LABS: BASOPHILS % (AUTO) 0.9 % (0.0-2.0); EOSINOPHILS % (AUTO) 2.2 % (0.0-3.0); HEMATOCRIT 45.5 % (37.0-47.0); HEMOGLOBIN 14.6 G/DL (12.0-16.0); LYMPHOCYTES % (AUTO) 19.3 % (20.0-45.0); MEAN CORPUSCULAR VOLUME 85 FL (80-99); MONOCYTES % (AUTO) 7.7 % (1.0-10.0); NEUTROPHILS % (AUTO) 69.9 % (45.0-75.0); PLATELET COUNT 190 K/UL (150-450); RED BLOOD COUNT 5.32 M/UL (4.20-5.40); RED CELL DISTRIBUTION WIDTH 14.8 % (11.6-14.8); WHITE BLOOD COUNT 5.5 K/UL (4.8-10.8)
[2017-11-20 07:35] LABS: ANION GAP 9 mmol/L (5-15); BLOOD UREA NITROGEN 17 mg/dL (7-18); CALCIUM 10.5 MG/DL (8.5-10.1); CARBON DIOXIDE 25 MMOL/L (21-32); CHLORIDE 102 MMOL/L (98-107); CREATININE 0.8 MG/DL (0.55-1.30); POTASSIUM 4.9 MMOL/L (3.5-5.1); SODIUM 136 MMOL/L (136-145)
[2017-11-20 08:12] VITALS: BP 94/49
[2017-11-20] MEDS: Docusate 100mg/10ml Liq NG SCH ×3 (08:57→17:28)
[2017-11-20 11:45] VITALS: BP 96/54
--- NOTE | 2017-11-20 12:00 | Nephrology Progress Note ---
Assessment/Plan Problem List: (1) Hypokalemia (2) Dementia (3) UTI (urinary tract infection) (4) Encephalopathy due to metabolic factor or toxin Assessment Severe Encephalopathy rapidly progressive dementia, ? Encephalitis Generalized weakness Hypokalemia UTI (urinary tract infection) Dementia hypokalemia Plan NPO except meds- tube feeding IV fluid Adjust mind altering meds start PO when more awake discussed with RN due transfer to a higher level of care ? NGT ? higher level care? Subjective ROS Limited/Unobtainable: Yes Objective Objective Last 24 Hour Vital Signs Date Time Temp Pulse Resp B/P (MAP) Pulse Ox O2 Delivery O2 Flow Rate FiO2 11/20/17 11:45 97.9 80 20 96/54 (68) 98 97.9 11/20/17 08:12 98.0 78 19 94/49 (64) 99 98.0 11/20/17 04:00 97.9 76 20 90/46 (61) 100 97.9 11/20/17 00:00 97.9 71 20 96/54 (68) 100 97.9 11/19/17 21:00 Room Air 11/19/17 20:00 98.8 78 20 115/69 (84) 100 98.8 11/19/17 15:39 98.0 88 18 119/68 (85) 97 98.0 11/19/17 12:00 97.9 85 20 115/66 (82) 98 97.9 Intake and Output 11/19/17 11/20/17 19:00 07:00 Intake Total 1390 ml 1470 ml Output Total 650 ml Balance 1390 ml 820 ml Free Water 120 ml 150 ml IV Total 550 ml 600 ml Tube Feeding 720 ml 720 ml Output Urine Total 650 ml # Bowel Movements 3 Laboratory Tests 11/20/17 01:30: Histoplasma Antigen [Pending] 11/20/17 06:50: White Blood Count 5.5, Red Blood Count 5.32, Hemoglobin 14.6, Hematocrit 45.5, Mean Corpuscular Volume 85, Mean Corpuscular Hemoglobin 27.5, Mean Corpuscular Hemoglobin Concent 32.2, Red Cell Distribution Width 14.8, Platelet Count 190, Mean Platelet Volume 8.2, Neutrophils (%) (Auto) 69.9, Lymphocytes (%) (Auto) 19.3L, Monocytes (%) (Auto) 7.7, Eosinophils (%) (Auto) 2.2, Basophils (%) (Auto ) 0.9, Sodium Level 136, Potassium Level 4.9, Chloride Level 102, Carbon Dioxide Level 25, Anion Gap 9, Blood Urea Nitrogen 17, Creatinine 0.8, Estimat Glomerular Filtration Rate > 60, Glucose Level 125H, Calcium Level 10.5H, Coccidioides Antibody (Comp Fix) [Pending], Cryptococcus Antigen [Pending], Toxoplasma IgG Antibody [Pending], Toxoplasma IgM Antibody [Pending], TB Test (T -Spot) [Pending], TB Test Nil Control (T-Spot) [Pending], TB Test Panel A (T- Spot) [Pending], TB Test Panel B (T-Spot) [Pending], TB Test Positive Control (T -Spot) [Pending] Height (Feet): 5 Height (Inches): 7.00 Weight (Pounds): 163 General Appearance: no apparent distress Objective no other change Nahum Connolly MD Nov 20, 2017 12:00
--- NOTE | 2017-11-20 12:34 | Infectious Diseases Prog Note ---
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 Subjective ROS Limited/Unobtainable: Yes Neurologic: Reports: confusion Allergies: Coded Allergies: IODINE (Verified Allergy, Unknown, 11/10/17) Objective Vital Signs Last 24 Hour Vital Signs Date Time Temp Pulse Resp B/P (MAP) Pulse Ox O2 Delivery O2 Flow Rate FiO2 11/20/17 11:45 97.9 80 20 96/54 (68) 98 97.9 11/20/17 08:12 98.0 78 19 94/49 (64) 99 98.0 11/20/17 04:00 97.9 76 20 90/46 (61) 100 97.9 11/20/17 00:00 97.9 71 20 96/54 (68) 100 97.9 11/19/17 21:00 Room Air 11/19/17 20:00 98.8 78 20 115/69 (84) 100 98.8 11/19/17 15:39 98.0 88 18 119/68 (85) 97 98.0 Height (Feet): 5 Height (Inches): 7.00 Weight (Pounds): 163 HEENT: mucous membranes moist Respiratory/Chest: lungs clear Cardiovascular: normal rate Abdomen: soft, non tender Extremities: no edema Neurologic/Psychiatric: disoriented Laboratory Tests Test 11/20/17 01:30 11/20/17 06:50 Histoplasma Antigen Pending White Blood Count 5.5 K/UL (4.8-10.8) Red Blood Count 5.32 M/UL (4.20-5.40) Hemoglobin 14.6 G/DL (12.0-16.0) Hematocrit 45.5 % (37.0-47.0) Mean Corpuscular Volume 85 FL (80-99) Mean Corpuscular Hemoglobin 27.5 PG (27.0-31.0) Mean Corpuscular Hemoglobin Concent 32.2 G/DL (32.0-36.0) Red Cell Distribution Width 14.8 % (11.6-14.8) Platelet Count 190 K/UL (150-450) Mean Platelet Volume 8.2 FL (6.5-10.1) Neutrophils (%) (Auto) 69.9 % (45.0-75.0) Lymphocytes (%) (Auto) 19.3 % (20.0-45.0) L Monocytes (%) (Auto) 7.7 % (1.0-10.0) Eosinophils (%) (Auto) 2.2 % (0.0-3.0) Basophils (%) (Auto) 0.9 % (0.0-2.0) Sodium Level 136 MMOL/L (136-145) Potassium Level 4.9 MMOL/L (3.5-5.1) Chloride Level 102 MMOL/L (98-107) Carbon Dioxide Level 25 MMOL/L (21-32) Anion Gap 9 mmol/L (5-15) Blood Urea Nitrogen 17 mg/dL (7-18) Creatinine 0.8 MG/DL (0.55-1.30) Estimat Glomerular Filtration Rate > 60 mL/min (>60) Glucose Level 125 MG/DL (74-106) H Calcium Level 10.5 MG/DL (8.5-10.1) H Coccidioides Antibody (Comp Fix) Pending Cryptococcus Antigen Pending Toxoplasma IgG Antibody Pending Toxoplasma IgM Antibody Pending TB Test (T-Spot) Pending TB Test Nil Control (T-Spot) Pending TB Test Panel A (T-Spot) Pending TB Test Panel B (T-Spot) Pending TB Test Positive Control (T-Spot) Pending Current Medications Medications (Trade) Dose Ordered Sig/Claritza Route PRN Reason Start Time Stop Time Status Last Admin Dose Admin Acetaminophen (Tylenol) 650 mg Q4H PRN ORAL Mild Pain/Temp > 100.5 11/19/17 05:52 12/10/17 05:51 11/19/17 14:12 Bisacodyl (Dulcolax) 10 mg NEEDED PRN RECTAL Constipation 11/19/17 05:52 12/10/17 05:51 Clonidine HCl (Catapres Tab) 0.1 mg Q6H PRN ORAL For High Blood Pressure 11/19/17 06:00 12/19/17 05:59 Dextrose/ Electrolytes 1,000 ml @ 50 mls/hr Q20H IV 11/19/17 06:00 12/13/17 05:59 11/20/17 05:31 Docusate Sodium (Colace) 100 mg THREE TIMES A DAY NG 11/19/17 09:00 12/13/17 17:59 11/20/17 08:57 Famotidine (Pepcid I.v.) 20 mg Q12HR IVP 11/19/17 09:00 12/12/17 20:59 11/20/17 09:12 Polyethylene Glycol (Miralax) 17 gm BEDTIME ORAL 11/19/17 21:00 12/12/17 20:59 11/19/17 21:23 Risperidone (RisperDAL) 1 mg BEDTIME PRN ORAL agitation 11/19/17 05:51 12/13/17 05:50 Kevon Thurston MD Nov 20, 2017 12:34
--- NOTE | 2017-11-20 12:44 | GI Progress Note ---
Assessment/Plan Problems: (1) Encephalopathy due to metabolic factor or toxin SNOMED: 545588334 (2) Constipation ICD Codes: K59.00 - Constipation, unspecified SNOMED: 45903307 (3) Altered level of consciousness ICD Codes: R40.4 - Transient alteration of awareness SNOMED: 4378511 (4) Dementia ICD Codes: F03.90 - Unspecified dementia without behavioral disturbance SNOMED: 50504428 (5) Generalized weakness ICD Codes: R53.1 - Weakness SNOMED: 31340883 Status: unchanged Status Narrative Discussed with Dr. Doan. Assessment/Plan PEG cancelled, pending [facility] for neuro work up. cont plan of care supportive care at this time, follow up psych recs NGT Feeds Neurology f/u bowel regime >> colace + miralax ppi zofran prn fu labs The patient was seen and examined at bedside and all new and available data was reviewed in the patients chart. I agree with the above findings, impression and plan. (Patient seen earlier today. Signature stamp does not reflect patient encounter time.). - Thagn Doan MD Subjective Subjective limited Objective Last 24 Hour Vital Signs Date Time Temp Pulse Resp B/P (MAP) Pulse Ox O2 Delivery O2 Flow Rate FiO2 11/20/17 11:45 97.9 80 20 96/54 (68) 98 97.9 11/20/17 08:12 98.0 78 19 94/49 (64) 99 98.0 11/20/17 04:00 97.9 76 20 90/46 (61) 100 97.9 11/20/17 00:00 97.9 71 20 96/54 (68) 100 97.9 11/19/17 21:00 Room Air 11/19/17 20:00 98.8 78 20 115/69 (84) 100 98.8 11/19/17 15:39 98.0 88 18 119/68 (85) 97 98.0 Intake and Output 11/19/17 11/20/17 19:00 07:00 Intake Total 1390 ml 1530 ml Output Total 650 ml Balance 1390 ml 880 ml Free Water 120 ml 150 ml IV Total 550 ml 600 ml Tube Feeding 720 ml 780 ml Output Urine Total 650 ml # Bowel Movements 3 Laboratory Tests Test 11/20/17 01:30 11/20/17 06:50 Histoplasma Antigen Pending White Blood Count 5.5 K/UL (4.8-10.8) Red Blood Count 5.32 M/UL (4.20-5.40) Hemoglobin 14.6 G/DL (12.0-16.0) Hematocrit 45.5 % (37.0-47.0) Mean Corpuscular Volume 85 FL (80-99) Mean Corpuscular Hemoglobin 27.5 PG (27.0-31.0) Mean Corpuscular Hemoglobin Concent 32.2 G/DL (32.0-36.0) Red Cell Distribution Width 14.8 % (11.6-14.8) Platelet Count 190 K/UL (150-450) Mean Platelet Volume 8.2 FL (6.5-10.1) Neutrophils (%) (Auto) 69.9 % (45.0-75.0) Lymphocytes (%) (Auto) 19.3 % (20.0-45.0) L Monocytes (%) (Auto) 7.7 % (1.0-10.0) Eosinophils (%) (Auto) 2.2 % (0.0-3.0) Basophils (%) (Auto) 0.9 % (0.0-2.0) Sodium Level 136 MMOL/L (136-145) Potassium Level 4.9 MMOL/L (3.5-5.1) Chloride Level 102 MMOL/L (98-107) Carbon Dioxide Level 25 MMOL/L (21-32) Anion Gap 9 mmol/L (5-15) Blood Urea Nitrogen 17 mg/dL (7-18) Creatinine 0.8 MG/DL (0.55-1.30) Estimat Glomerular Filtration Rate > 60 mL/min (>60) Glucose Level 125 MG/DL (74-106) H Calcium Level 10.5 MG/DL (8.5-10.1) H Coccidioides Antibody (Comp Fix) Pending Cryptococcus Antigen Pending Toxoplasma IgG Antibody Pending Toxoplasma IgM Antibody Pending TB Test (T-Spot) Pending TB Test Nil Control (T-Spot) Pending TB Test Panel A (T-Spot) Pending TB Test Panel B (T-Spot) Pending TB Test Positive Control (T-Spot) Pending Height (Feet): 5 Height (Inches): 7.00 Weight (Pounds): 163 General Appearance: no apparent distress Cardiovascular: normal rate Abdominal Exam: other - Lynette Reynolds NP Nov 20, 2017 12:44
--- NOTE | 2017-11-20 14:12 | Neurology Progress Note ---
Interim History Interim History Interim History Ms. Ortega can be aroused with vocal stimuli. She is able to tell us she feels "better." She is also able to follow a few simple commands. She is able to count fingers inconsistently. She is able to protrude her tongue on command. She is severely cognitively impoverished. She is still severely motorically challenged. We are waiting to transfer her to [facility] for further management. Review of Systems Neuro Review of Systems Unable to obtain Objective Physical Exam Last Vital Signs Date Time Temp Pulse Resp B/P (MAP) Pulse Ox O2 Delivery O2 Flow Rate FiO2 11/20/17 11:45 97.9 80 20 96/54 (68) 98 97.9 11/19/17 21:00 Room Air Laboratory Tests Test 11/20/17 01:30 11/20/17 06:50 Histoplasma Antigen Pending White Blood Count 5.5 K/UL (4.8-10.8) Red Blood Count 5.32 M/UL (4.20-5.40) Hemoglobin 14.6 G/DL (12.0-16.0) Hematocrit 45.5 % (37.0-47.0) Mean Corpuscular Volume 85 FL (80-99) Mean Corpuscular Hemoglobin 27.5 PG (27.0-31.0) Mean Corpuscular Hemoglobin Concent 32.2 G/DL (32.0-36.0) Red Cell Distribution Width 14.8 % (11.6-14.8) Platelet Count 190 K/UL (150-450) Mean Platelet Volume 8.2 FL (6.5-10.1) Neutrophils (%) (Auto) 69.9 % (45.0-75.0) Lymphocytes (%) (Auto) 19.3 % (20.0-45.0) L Monocytes (%) (Auto) 7.7 % (1.0-10.0) Eosinophils (%) (Auto) 2.2 % (0.0-3.0) Basophils (%) (Auto) 0.9 % (0.0-2.0) Sodium Level 136 MMOL/L (136-145) Potassium Level 4.9 MMOL/L (3.5-5.1) Chloride Level 102 MMOL/L (98-107) Carbon Dioxide Level 25 MMOL/L (21-32) Anion Gap 9 mmol/L (5-15) Blood Urea Nitrogen 17 mg/dL (7-18) Creatinine 0.8 MG/DL (0.55-1.30) Estimat Glomerular Filtration Rate > 60 mL/min (>60) Glucose Level 125 MG/DL (74-106) H Calcium Level 10.5 MG/DL (8.5-10.1) H Coccidioides Antibody (Comp Fix) Pending Cryptococcus Antigen Pending Toxoplasma IgG Antibody Pending Toxoplasma IgM Antibody Pending TB Test (T-Spot) Pending TB Test Nil Control (T-Spot) Pending TB Test Panel A (T-Spot) Pending TB Test Panel B (T-Spot) Pending TB Test Positive Control (T-Spot) Pending Neurologic Exam Objective PHYSICAL EXAMINATION: GENERAL: She is a well-developed, well-nourished, black lady, lying in bed, in no acute distress. HEAD: Normocephalic and atraumatic. EENT: Examination benign. NECK: She exhibited significant neck rigidity in all directions. NEUROLOGIC EXAMINATION: MENTAL STATUS EXAMINATION: She can be aroused with vocal stimuli. She is able to tell us she feels "better." She is also able to follow a few simple commands. She is able to count fingers inconsistently. She is able to protrude her tongue on command. She is severely cognitively impoverished. Further mental status testing was impossible. SPEECH: She said a few words with a dysarthric speech. LANGUAGE: She was able to comprehend a few simple commands and say a few words. CRANIAL NERVE EXAMINATION: II: She counted fingers inconsistently III, IV & : The external ocular movements were present. The pupils were 3 mm in diameter, equal, round, regular, and reactive sluggishly to light. V & VII: The corneal reflexes were present and symmetrical bilaterally. VIII: She did respond to voice and had no nystagmus. IX & X: The gag reflex was not tested. XI: The sternocleidomastoids and trapezii did function. XII: The protruded her tongue in the midline on command. MOTOR SYSTEM: The tone was increased in all four extremities with mild gegenhalten and spasticity. Examination of muscle mass revealed generalized muscle wasting. Examination of power was impossible to perform accurately. However she moved all 4 extremities on command. SENSORY EXAMINATION: She responded to deep pain with withdrawal of the appropriate extremity. REFLEXES: 1+ and bilaterally symmetrical at the biceps, triceps, brachioradialis , and knees, 0 at both ankles. The plantar responses were flexor bilaterally. COORDINATION, STANCE & GAIT: Could not be tested. Impression/Recommendations Diagnostic Impression 1. Ms. Erica Ortega is a 72-year-old, black lady, of unknown handedness, who does have a past history of dementia and behavioral problems who was hospitalized for an alteration in her mental state. Of note is that, she was recently started on Nuedexta for behavioral problems. On being evaluated in the emergency room, she was noted to have a urinary tract infection and is on antibiotics for it. 2. As per Dr. Duke, her psychiatrist, she was worked up at [facility] [place] for a rapidly progressive dementia and there was a question as to whether she had an encephalitis. However no LP was done. 3. I had a chance to talk to her and brother and sister. They tell me she was a normally functioning person until July 2017. In August 2017 she had to be hospitalized for language problems, confusion, behavioral problems, episodes of fear, and loss of ability to walk. 4. She can be aroused with vocal stimuli. She is able to tell us she feels "better." She is also able to follow a few simple commands. She is able to count fingers inconsistently. She is able to protrude her tongue on command. She is severely cognitively impoverished. She is still severely motorically challenged. 5. On neurological examination, at this time, she exhibits neck rigidity in all directions. She can be aroused. When aroused she is awake but not completely alert. She is able to follow a few simple commands. She is able to count fingers inconsistently. She is able to protrude her tongue on command. She is severely cognitively impoverished. Further mental status testing was impossible. Her speech is dysarthric. She ias able to comprehend a few simple commands and say a few words. She moves all her limbs on command but is generally weak. 6. A CT scan of the brain performed on 11/10/2017 reveals atrophy and deep white matter changes, but no acute pathology. 7. Laboratory data revealed a relatively normal CBC. The chemistry panel revealed a low potassium at 2.8, a high chloride at 111 and an elevated glucose of 123. Her B12 level is normal at 460. Her folate was normal at 10.3 and her TSH was normal at 0.746. Her urinalysis however was abnormal with 1+ leukocyte esterase, 5-10 RBCs, 2-4 WBCs with few urinary bacteria. 8. The EEG done on 11/18/17 revealed a severe encephalopathy with possibly a toxic component as evidenced by triphasic waveforms. 9. The patient's history, neurological examination, laboratory data, and imaging studies are most compatible with a rapidly progressive dementia which has not been worked up thoroughly at this time. 10. Her encephalopathy is better today. Recommendations 1. Continue present management. 2. Transfer her to [facility] for further management. 3. She should also be worked up for anti NMDA receptor encephalitis. 4. A Lumbar puncture should be performed and the CSF should be sent for indlent infectious processes and protein 14-3-3. 5. An MRI with volumetric analysis and a brain PET may also be useful when she gets to [facility]. 6. Once an accurate diagnosis is made then further management plans can be made. Jyoti Amos M.D., M.S.P.JYOTI OTERO Nov 20, 2017 14:12
--- NOTE | 2017-11-20 14:33 | General Progress Note ---
Assessment/Plan Assessment/Plan (1) Encephalopathy due to metabolic factor or toxin (2) Dementia (3) Altered level of consciousness Continued on Tylenol. D/w Dr. Rosario and he concurred. Subjective Date patient seen: Nov 20, 2017 Time patient seen: 14:31 Allergies: Coded Allergies: IODINE (Verified Allergy, Unknown, 11/10/17) Subjective REVIEW OF SYSTEMS: Unable to obtain due to the patient's status. SUBJECTIVE: Pt is in bed no signs of pain or distress. NG tube noted. Objective Last 24 Hour Vital Signs Date Time Temp Pulse Resp B/P (MAP) Pulse Ox O2 Delivery O2 Flow Rate FiO2 11/20/17 11:45 97.9 80 20 96/54 (68) 98 97.9 11/20/17 08:12 98.0 78 19 94/49 (64) 99 98.0 11/20/17 04:00 97.9 76 20 90/46 (61) 100 97.9 11/20/17 00:00 97.9 71 20 96/54 (68) 100 97.9 11/19/17 21:00 Room Air 11/19/17 20:00 98.8 78 20 115/69 (84) 100 98.8 11/19/17 15:39 98.0 88 18 119/68 (85) 97 98.0 Intake and Output 11/19/17 11/20/17 19:00 07:00 Intake Total 1390 ml 1530 ml Output Total 650 ml Balance 1390 ml 880 ml Free Water 120 ml 150 ml IV Total 550 ml 600 ml Tube Feeding 720 ml 780 ml Output Urine Total 650 ml # Bowel Movements 3 Laboratory Tests 11/20/17 01:30: Histoplasma Antigen [Pending] 11/20/17 06:50: White Blood Count 5.5, Red Blood Count 5.32, Hemoglobin 14.6, Hematocrit 45.5, Mean Corpuscular Volume 85, Mean Corpuscular Hemoglobin 27.5, Mean Corpuscular Hemoglobin Concent 32.2, Red Cell Distribution Width 14.8, Platelet Count 190, Mean Platelet Volume 8.2, Neutrophils (%) (Auto) 69.9, Lymphocytes (%) (Auto) 19.3L, Monocytes (%) (Auto) 7.7, Eosinophils (%) (Auto) 2.2, Basophils (%) (Auto ) 0.9, Sodium Level 136, Potassium Level 4.9, Chloride Level 102, Carbon Dioxide Level 25, Anion Gap 9, Blood Urea Nitrogen 17, Creatinine 0.8, Estimat Glomerular Filtration Rate > 60, Glucose Level 125H, Calcium Level 10.5H, Coccidioides Antibody (Comp Fix) [Pending], Cryptococcus Antigen [Pending], Toxoplasma IgG Antibody [Pending], Toxoplasma IgM Antibody [Pending], TB Test (T -Spot) [Pending], TB Test Nil Control (T-Spot) [Pending], TB Test Panel A (T- Spot) [Pending], TB Test Panel B (T-Spot) [Pending], TB Test Positive Control (T -Spot) [Pending] Height (Feet): 5 Height (Inches): 7.00 Weight (Pounds): 163 Objective NECK: Range of motion is full in all directions. LUNGS: Decreased breath sounds bilaterally. HEART: S1 and S2 regular. ABDOMEN: Obese. EXTREMITIES: No cyanosis. No clubbing. No edema. Jesse Aleman Nov 20, 2017 14:33
--- NOTE | 2017-11-20 15:49 | General Progress Note ---
Assessment/Plan Problem List: (1) Encephalopathy due to metabolic factor or toxin SNOMED: 665597781 Assessment/Plan decrease Ativan change Risperdal 1mg qhs to prn r/o CJ. The LP was unsuccessful awaiting bed at [facility] Subjective Date patient seen: Nov 20, 2017 Neurologic/Psychiatric: Reports: anxiety, depressed, emotional problems Allergies: Coded Allergies: IODINE (Verified Allergy, Unknown, 11/10/17) Subjective the pt cont to be agitated at times. the pt was moaning and confused Objective Last 24 Hour Vital Signs Date Time Temp Pulse Resp B/P (MAP) Pulse Ox O2 Delivery O2 Flow Rate FiO2 11/20/17 11:45 97.9 80 20 96/54 (68) 98 97.9 11/20/17 08:12 98.0 78 19 94/49 (64) 99 98.0 11/20/17 04:00 97.9 76 20 90/46 (61) 100 97.9 11/20/17 00:00 97.9 71 20 96/54 (68) 100 97.9 11/19/17 21:00 Room Air 11/19/17 20:00 98.8 78 20 115/69 (84) 100 98.8 Intake and Output 11/19/17 11/20/17 19:00 07:00 Intake Total 1390 ml 1530 ml Output Total 650 ml Balance 1390 ml 880 ml Free Water 120 ml 150 ml IV Total 550 ml 600 ml Tube Feeding 720 ml 780 ml Output Urine Total 650 ml # Bowel Movements 3 Laboratory Tests 11/20/17 01:30: Histoplasma Antigen [Pending] 11/20/17 06:50: White Blood Count 5.5, Red Blood Count 5.32, Hemoglobin 14.6, Hematocrit 45.5, Mean Corpuscular Volume 85, Mean Corpuscular Hemoglobin 27.5, Mean Corpuscular Hemoglobin Concent 32.2, Red Cell Distribution Width 14.8, Platelet Count 190, Mean Platelet Volume 8.2, Neutrophils (%) (Auto) 69.9, Lymphocytes (%) (Auto) 19.3L, Monocytes (%) (Auto) 7.7, Eosinophils (%) (Auto) 2.2, Basophils (%) (Auto ) 0.9, Sodium Level 136, Potassium Level 4.9, Chloride Level 102, Carbon Dioxide Level 25, Anion Gap 9, Blood Urea Nitrogen 17, Creatinine 0.8, Estimat Glomerular Filtration Rate > 60, Glucose Level 125H, Calcium Level 10.5H, Coccidioides Antibody (Comp Fix) [Pending], Cryptococcus Antigen [Pending], Toxoplasma IgG Antibody [Pending], Toxoplasma IgM Antibody [Pending], TB Test (T -Spot) [Pending], TB Test Nil Control (T-Spot) [Pending], TB Test Panel A (T- Spot) [Pending], TB Test Panel B (T-Spot) [Pending], TB Test Positive Control (T -Spot) [Pending] Height (Feet): 5 Height (Inches): 7.00 Weight (Pounds): 163 Ramon Duke MD Nov 20, 2017 15:49
[2017-11-20 16:00] VITALS: BP 94/57
--- NOTE | 2017-11-20 17:17 | Cardiology Progress Note ---
Assessment/Plan Assessment/Plan Assessment/Plan 1. Non-sustained ventricular tachycardia. Ruled out for myocardial infarction. Echo showed EF 65% 2. Hypokalemia, replaced. 3. Encephalopathy, metabolic versus toxic. FU by Dr. Amos. 5 attempts at LP failed. 4. Urinary tract infection. 5. Dementia. 6. Dysphagia. The patient has a NG-tube. Followed up by Dr. Doan. Refused percutaneous endoscopic gastrostomy placement. Subjective Cardiovascular: Reports: no symptoms Respiratory: Reports: no symptoms Gastrointestinal/Abdominal: Reports: no symptoms Genitourinary: Reports: no symptoms Subjective Currently asleep, family at bedside, no distress Accepted to [facility], awaiting bed assignment Objective Last 24 Hour Vital Signs Date Time Temp Pulse Resp B/P (MAP) Pulse Ox O2 Delivery O2 Flow Rate FiO2 11/20/17 16:00 98.0 77 18 94/57 (69) 98 98.0 11/20/17 11:45 97.9 80 20 96/54 (68) 98 97.9 11/20/17 08:12 98.0 78 19 94/49 (64) 99 98.0 11/20/17 04:00 97.9 76 20 90/46 (61) 100 97.9 11/20/17 00:00 97.9 71 20 96/54 (68) 100 97.9 11/19/17 21:00 Room Air 11/19/17 20:00 98.8 78 20 115/69 (84) 100 98.8 General Appearance: no apparent distress, lethargic EENT: PERRL/EOMI, normal ENT inspection Neck: non-tender, normal alignment, supple, normal inspection, no JVD Rhythm: NSR Cardiovascular: normal peripheral pulses, normal rate, regular rhythm Respiratory/Chest: chest wall non-tender, lungs clear, normal breath sounds, no respiratory distress, no accessory muscle use Abdomen: normal bowel sounds, non tender, soft, no organomegaly Extremities: normal range of motion, non-tender, normal inspection, no calf tenderness, no swelling Neurologic: abnormal CN, motor weakness, sensory deficit, disoriented, unresponsiveness Intake and Output 11/19/17 11/20/17 19:00 07:00 Intake Total 1390 ml 1530 ml Output Total 650 ml Balance 1390 ml 880 ml Free Water 120 ml 150 ml IV Total 550 ml 600 ml Tube Feeding 720 ml 780 ml Output Urine Total 650 ml # Bowel Movements 3 Laboratory Tests Test 11/20/17 01:30 11/20/17 06:50 Histoplasma Antigen Pending White Blood Count 5.5 K/UL (4.8-10.8) Red Blood Count 5.32 M/UL (4.20-5.40) Hemoglobin 14.6 G/DL (12.0-16.0) Hematocrit 45.5 % (37.0-47.0) Mean Corpuscular Volume 85 FL (80-99) Mean Corpuscular Hemoglobin 27.5 PG (27.0-31.0) Mean Corpuscular Hemoglobin Concent 32.2 G/DL (32.0-36.0) Red Cell Distribution Width 14.8 % (11.6-14.8) Platelet Count 190 K/UL (150-450) Mean Platelet Volume 8.2 FL (6.5-10.1) Neutrophils (%) (Auto) 69.9 % (45.0-75.0) Lymphocytes (%) (Auto) 19.3 % (20.0-45.0) L Monocytes (%) (Auto) 7.7 % (1.0-10.0) Eosinophils (%) (Auto) 2.2 % (0.0-3.0) Basophils (%) (Auto) 0.9 % (0.0-2.0) Sodium Level 136 MMOL/L (136-145) Potassium Level 4.9 MMOL/L (3.5-5.1) Chloride Level 102 MMOL/L (98-107) Carbon Dioxide Level 25 MMOL/L (21-32) Anion Gap 9 mmol/L (5-15) Blood Urea Nitrogen 17 mg/dL (7-18) Creatinine 0.8 MG/DL (0.55-1.30) Estimat Glomerular Filtration Rate > 60 mL/min (>60) Glucose Level 125 MG/DL (74-106) H Calcium Level 10.5 MG/DL (8.5-10.1) H Coccidioides Antibody (Comp Fix) Pending Cryptococcus Antigen Pending Toxoplasma IgG Antibody Pending Toxoplasma IgM Antibody Pending TB Test (T-Spot) Pending TB Test Nil Control (T-Spot) Pending TB Test Panel A (T-Spot) Pending TB Test Panel B (T-Spot) Pending TB Test Positive Control (T-Spot) Pending Herman French MD Nov 20, 2017 17:17
[2017-11-20 20:00] VITALS: BP 104/50
[2017-11-20] MEDS: Miralax 17gm pkt ORAL SCH (20:48)
--- NOTE | 2017-11-20 21:50 | General Progress Note ---
Assessment/Plan Problem List: (1) Hypokalemia ICD Codes: E87.6 - Hypokalemia SNOMED: 50878624 (2) Dementia ICD Codes: F03.90 - Unspecified dementia without behavioral disturbance SNOMED: 49652983 (3) Altered level of consciousness ICD Codes: R40.4 - Transient alteration of awareness SNOMED: 7307554 (4) Encephalopathy due to metabolic factor or toxin SNOMED: 270239615 Status: unchanged Assessment/Plan moves a lot during LP and as consequence unable to do LP despite multiple attempts ams of unknown etiology waxing and waning encelphalopathy consulted dr christiansen for pain control Subjective ROS Limited/Unobtainable: Yes Allergies: Coded Allergies: IODINE (Verified Allergy, Unknown, 11/10/17) Subjective waxing and waning mental state agitated Objective Last 24 Hour Vital Signs Date Time Temp Pulse Resp B/P (MAP) Pulse Ox O2 Delivery O2 Flow Rate FiO2 11/20/17 21:00 Room Air 11/20/17 20:00 98.1 74 20 104/50 (68) 100 98.1 11/20/17 16:00 98.0 77 18 94/57 (69) 98 98.0 11/20/17 11:45 97.9 80 20 96/54 (68) 98 97.9 11/20/17 09:00 Room Air 11/20/17 08:12 98.0 78 19 94/49 (64) 99 98.0 11/20/17 04:00 97.9 76 20 90/46 (61) 100 97.9 11/20/17 00:00 97.9 71 20 96/54 (68) 100 97.9 Intake and Output 11/19/17 11/20/17 19:00 07:00 Intake Total 1390 ml 1530 ml Output Total 650 ml Balance 1390 ml 880 ml Free Water 120 ml 150 ml IV Total 550 ml 600 ml Tube Feeding 720 ml 780 ml Output Urine Total 650 ml # Bowel Movements 3 Laboratory Tests 11/20/17 01:30: Histoplasma Antigen [Pending] 11/20/17 06:50: White Blood Count 5.5, Red Blood Count 5.32, Hemoglobin 14.6, Hematocrit 45.5, Mean Corpuscular Volume 85, Mean Corpuscular Hemoglobin 27.5, Mean Corpuscular Hemoglobin Concent 32.2, Red Cell Distribution Width 14.8, Platelet Count 190, Mean Platelet Volume 8.2, Neutrophils (%) (Auto) 69.9, Lymphocytes (%) (Auto) 19.3L, Monocytes (%) (Auto) 7.7, Eosinophils (%) (Auto) 2.2, Basophils (%) (Auto ) 0.9, Sodium Level 136, Potassium Level 4.9, Chloride Level 102, Carbon Dioxide Level 25, Anion Gap 9, Blood Urea Nitrogen 17, Creatinine 0.8, Estimat Glomerular Filtration Rate > 60, Glucose Level 125H, Calcium Level 10.5H, Coccidioides Antibody (Comp Fix) [Pending], Cryptococcus Antigen [Pending], Toxoplasma IgG Antibody [Pending], Toxoplasma IgM Antibody [Pending], TB Test (T -Spot) [Pending], TB Test Nil Control (T-Spot) [Pending], TB Test Panel A (T- Spot) [Pending], TB Test Panel B (T-Spot) [Pending], TB Test Positive Control (T -Spot) [Pending] Height (Feet): 5 Height (Inches): 7.00 Weight (Pounds): 163 General Appearance: lethargic, confused Sampson Leggett MD Nov 20, 2017 21:50
[2017-11-21] VITALS: BP 114/52
[2017-11-21] MEDS: D5 1/2NS w/KCl 40meq 1000ml 1,000 ML IV SCH ×2 (02:14→23:45)
[2017-11-21 04:00] VITALS: BP 102/56
[2017-11-21 07:49] LABS: HEMATOCRIT 43.9 % (37.0-47.0); HEMOGLOBIN 13.9 G/DL (12.0-16.0); LYMPHOCYTES % (AUTO) 21.3 % (20.0-45.0); MEAN CORPUSCULAR VOLUME 86 FL (80-99); MONOCYTES % (AUTO) 8.8 % (1.0-10.0); NEUTROPHILS % (AUTO) 66.9 % (45.0-75.0); PLATELET COUNT 202 K/UL (150-450); RED BLOOD COUNT 5.13 M/UL (4.20-5.40); RED CELL DISTRIBUTION WIDTH 14.9 % (11.6-14.8); WHITE BLOOD COUNT 5.5 K/UL (4.8-10.8)
[2017-11-21 08:00] VITALS: BP 98/52
--- NOTE | 2017-11-21 08:04 | General Progress Note ---
Assessment/Plan Problem List: (1) Dysphagia ICD Codes: R13.10 - Dysphagia, unspecified SNOMED: 38425825, 234981001 (2) Generalized weakness ICD Codes: R53.1 - Weakness SNOMED: 83628243 (3) Dementia ICD Codes: F03.90 - Unspecified dementia without behavioral disturbance SNOMED: 97228946 (4) UTI (urinary tract infection) ICD Codes: N39.0 - Urinary tract infection, site not specified SNOMED: 00720668 (5) Constipation ICD Codes: K59.00 - Constipation, unspecified SNOMED: 16120975 Assessment/Plan PEG cancelled, pending transferto [facility] for neuro work up. cont plan of care supportive care at this time, follow up psych recs NGT Feeds Neurology f/u bowel regime >> colace + miralax ppi zofran prn fu labs Subjective ROS Limited/Unobtainable: No Allergies: Coded Allergies: IODINE (Verified Allergy, Unknown, 11/10/17) Objective Last 24 Hour Vital Signs Date Time Temp Pulse Resp B/P (MAP) Pulse Ox O2 Delivery O2 Flow Rate FiO2 11/21/17 04:00 97.9 72 20 102/56 (71) 95 97.9 11/21/17 00:00 97.3 71 20 114/52 (72) 99 97.3 11/20/17 21:00 Room Air 11/20/17 20:00 98.1 74 20 104/50 (68) 100 98.1 11/20/17 16:00 98.0 77 18 94/57 (69) 98 98.0 11/20/17 11:45 97.9 80 20 96/54 (68) 98 97.9 11/20/17 09:00 Room Air 11/20/17 08:12 98.0 78 19 94/49 (64) 99 98.0 Intake and Output 11/20/17 11/21/17 19:00 07:00 Intake Total 1440 ml 1360 ml Output Total 450 ml Balance 1440 ml 910 ml Free Water 120 ml 90 ml IV Total 600 ml 550 ml Tube Feeding 720 ml 720 ml Output Urine Total 450 ml # Bowel Movements 1 1 Laboratory Tests 11/21/17 06:10: White Blood Count 5.5, Red Blood Count 5.13, Hemoglobin 13.9, Hematocrit 43.9, Mean Corpuscular Volume 86, Mean Corpuscular Hemoglobin 27.2, Mean Corpuscular Hemoglobin Concent 31.8L, Red Cell Distribution Width 14.9H, Platelet Count 202 , Mean Platelet Volume 8.8, Neutrophils (%) (Auto) 66.9, Lymphocytes (%) (Auto) 21.3, Monocytes (%) (Auto) 8.8, Eosinophils (%) (Auto) 2.0, Basophils (%) (Auto ) 1.0, Alpha Fetoprotein [Pending], Carcinoembryonic Antigen [Pending], CA 19-9 Antigen [Pending], HIV (1&2) Antibody Rapid [Pending] Height (Feet): 5 Height (Inches): 7.00 Weight (Pounds): 163 General Appearance: no apparent distress EENT: normal ENT inspection Neck: supple Cardiovascular: normal rate Respiratory/Chest: decreased breath sounds Abdomen: normal bowel sounds, non tender, soft Extremities: non-tender Thang Doan MD Nov 21, 2017 08:04
[2017-11-21] MEDS: Docusate 100mg/10ml Liq NG SCH ×3 (08:33→18:27)
--- NOTE | 2017-11-21 09:31 | Nephrology Progress Note ---
Assessment/Plan Problem List: (1) Hypokalemia (2) Dementia (3) UTI (urinary tract infection) (4) Encephalopathy due to metabolic factor or toxin Assessment Severe Encephalopathy rapidly progressive dementia, ? Encephalitis Generalized weakness Hypokalemia UTI (urinary tract infection) Dementia hypokalemia Plan NPO except meds- tube feeding IV fluid Adjust mind altering meds start PO when more awake discussed with RN due transfer to a higher level of care ? NGT ? higher level care? Subjective ROS Limited/Unobtainable: Yes Objective Objective Last 24 Hour Vital Signs Date Time Temp Pulse Resp B/P (MAP) Pulse Ox O2 Delivery O2 Flow Rate FiO2 11/21/17 08:00 98.2 72 12 98/52 (67) 95 98.2 11/21/17 04:00 97.9 72 20 102/56 (71) 95 97.9 11/21/17 00:00 97.3 71 20 114/52 (72) 99 97.3 11/20/17 21:00 Room Air 11/20/17 20:00 98.1 74 20 104/50 (68) 100 98.1 11/20/17 16:00 98.0 77 18 94/57 (69) 98 98.0 11/20/17 11:45 97.9 80 20 96/54 (68) 98 97.9 Intake and Output 11/20/17 11/21/17 19:00 07:00 Intake Total 1440 ml 1360 ml Output Total 450 ml Balance 1440 ml 910 ml Free Water 120 ml 90 ml IV Total 600 ml 550 ml Tube Feeding 720 ml 720 ml Output Urine Total 450 ml # Bowel Movements 1 1 Laboratory Tests 11/21/17 06:10: White Blood Count 5.5, Red Blood Count 5.13, Hemoglobin 13.9, Hematocrit 43.9, Mean Corpuscular Volume 86, Mean Corpuscular Hemoglobin 27.2, Mean Corpuscular Hemoglobin Concent 31.8L, Red Cell Distribution Width 14.9H, Platelet Count 202 , Mean Platelet Volume 8.8, Neutrophils (%) (Auto) 66.9, Lymphocytes (%) (Auto) 21.3, Monocytes (%) (Auto) 8.8, Eosinophils (%) (Auto) 2.0, Basophils (%) (Auto ) 1.0, Alpha Fetoprotein [Pending], Carcinoembryonic Antigen [Pending], CA 19-9 Antigen [Pending], HIV (1&2) Antibody Rapid Negative Height (Feet): 5 Height (Inches): 7.00 Weight (Pounds): 163 General Appearance: no apparent distress Objective no other change Nahum Connolly MD Nov 21, 2017 09:31
--- NOTE | 2017-11-21 11:10 | Infectious Diseases Prog Note ---
Assessment/Plan Assessment/Plan antibiotics : none A 1. UTI 2. encephalopathy 3. dementia 4. rectal VRE colonization P 1. continue off antibiotics Subjective ROS Limited/Unobtainable: Yes Allergies: Coded Allergies: IODINE (Verified Allergy, Unknown, 11/10/17) Objective Vital Signs Last 24 Hour Vital Signs Date Time Temp Pulse Resp B/P (MAP) Pulse Ox O2 Delivery O2 Flow Rate FiO2 11/21/17 09:00 Room Air 11/21/17 08:00 98.2 72 12 98/52 (67) 95 98.2 11/21/17 04:00 97.9 72 20 102/56 (71) 95 97.9 11/21/17 00:00 97.3 71 20 114/52 (72) 99 97.3 11/20/17 21:00 Room Air 11/20/17 20:00 98.1 74 20 104/50 (68) 100 98.1 11/20/17 16:00 98.0 77 18 94/57 (69) 98 98.0 11/20/17 11:45 97.9 80 20 96/54 (68) 98 97.9 Height (Feet): 5 Height (Inches): 7.00 Weight (Pounds): 163 Respiratory/Chest: lungs clear Cardiovascular: normal rate, regular rhythm, no gallop/murmur Abdomen: soft, non tender Extremities: no edema Laboratory Tests Test 11/21/17 06:10 White Blood Count 5.5 K/UL (4.8-10.8) Red Blood Count 5.13 M/UL (4.20-5.40) Hemoglobin 13.9 G/DL (12.0-16.0) Hematocrit 43.9 % (37.0-47.0) Mean Corpuscular Volume 86 FL (80-99) Mean Corpuscular Hemoglobin 27.2 PG (27.0-31.0) Mean Corpuscular Hemoglobin Concent 31.8 G/DL (32.0-36.0) L Red Cell Distribution Width 14.9 % (11.6-14.8) H Platelet Count 202 K/UL (150-450) Mean Platelet Volume 8.8 FL (6.5-10.1) Neutrophils (%) (Auto) 66.9 % (45.0-75.0) Lymphocytes (%) (Auto) 21.3 % (20.0-45.0) Monocytes (%) (Auto) 8.8 % (1.0-10.0) Eosinophils (%) (Auto) 2.0 % (0.0-3.0) Basophils (%) (Auto) 1.0 % (0.0-2.0) C-Reactive Protein, Quantitative 1.8 mg/dL (0.00-0.90) H Alpha Fetoprotein Pending Carcinoembryonic Antigen Pending CA 19-9 Antigen Pending HIV (1&2) Antibody Rapid Negative (NEGATIVE) Current Medications Medications (Trade) Dose Ordered Sig/Claritza Route PRN Reason Start Time Stop Time Status Last Admin Dose Admin Acetaminophen (Tylenol) 650 mg Q4H PRN ORAL Mild Pain/Temp > 100.5 11/19/17 05:52 12/10/17 05:51 11/19/17 14:12 Bisacodyl (Dulcolax) 10 mg NEEDED PRN RECTAL Constipation 11/19/17 05:52 12/10/17 05:51 Clonidine HCl (Catapres Tab) 0.1 mg Q6H PRN ORAL For High Blood Pressure 11/19/17 06:00 12/19/17 05:59 Dextrose/ Electrolytes 1,000 ml @ 50 mls/hr Q20H IV 11/19/17 06:00 12/13/17 05:59 11/21/17 02:14 Docusate Sodium (Colace) 100 mg THREE TIMES A DAY NG 11/19/17 09:00 12/13/17 17:59 11/21/17 08:33 Famotidine (Pepcid I.v.) 20 mg Q12HR IVP 11/19/17 09:00 12/12/17 20:59 11/21/17 08:34 Polyethylene Glycol (Miralax) 17 gm BEDTIME ORAL 11/19/17 21:00 12/12/17 20:59 11/20/17 20:48 Risperidone (RisperDAL) 1 mg BEDTIME PRN ORAL agitation 11/19/17 05:51 12/13/17 05:50 PAMELA CHAKRABORTY Nov 21, 2017 11:10
[2017-11-21 12:00] VITALS: BP 132/62
--- NOTE | 2017-11-21 14:16 | Neurology Progress Note ---
Interim History Interim History Interim History Ms. Ortega can be aroused with vocal stimuli. She says she feels "better." She is able to give me her full name. 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 She is also able to follow a simple commands better. She is able to count fingers inconsistently. She is able to protrude her tongue on command. She is severely cognitively impoverished. She is still severely motorically challenged. We are waiting to transfer her to [facility] for further management. Review of Systems Neuro Review of Systems Unable to obtain Objective Physical Exam Last Vital Signs Date Time Temp Pulse Resp B/P (MAP) Pulse Ox O2 Delivery O2 Flow Rate FiO2 11/21/17 12:00 97.8 76 18 132/62 (85) 96 97.8 11/21/17 09:00 Room Air Laboratory Tests Test 11/21/17 06:10 White Blood Count 5.5 K/UL (4.8-10.8) Red Blood Count 5.13 M/UL (4.20-5.40) Hemoglobin 13.9 G/DL (12.0-16.0) Hematocrit 43.9 % (37.0-47.0) Mean Corpuscular Volume 86 FL (80-99) Mean Corpuscular Hemoglobin 27.2 PG (27.0-31.0) Mean Corpuscular Hemoglobin Concent 31.8 G/DL (32.0-36.0) L Red Cell Distribution Width 14.9 % (11.6-14.8) H Platelet Count 202 K/UL (150-450) Mean Platelet Volume 8.8 FL (6.5-10.1) Neutrophils (%) (Auto) 66.9 % (45.0-75.0) Lymphocytes (%) (Auto) 21.3 % (20.0-45.0) Monocytes (%) (Auto) 8.8 % (1.0-10.0) Eosinophils (%) (Auto) 2.0 % (0.0-3.0) Basophils (%) (Auto) 1.0 % (0.0-2.0) C-Reactive Protein, Quantitative 1.8 mg/dL (0.00-0.90) H Alpha Fetoprotein Pending Carcinoembryonic Antigen Pending CA 19-9 Antigen Pending HIV (1&2) Antibody Rapid Negative (NEGATIVE) Neurologic Exam Objective PHYSICAL EXAMINATION: GENERAL: She is a well-developed, well-nourished, black lady, lying in bed, in no acute distress. HEAD: Normocephalic and atraumatic. EENT: Examination benign. NECK: She exhibited significant neck rigidity in all directions. NEUROLOGIC EXAMINATION: MENTAL STATUS EXAMINATION: She can be aroused with vocal stimuli. She is able to tell us she feels "better." She is also able to follow a few simple commands. She is able to count fingers inconsistently. She is able to protrude her tongue on command. She is severely cognitively impoverished. Further mental status testing was impossible. SPEECH: She said a few words with a dysarthric speech. LANGUAGE: She was able to comprehend simple commands and say a few more words. CRANIAL NERVE EXAMINATION: II: She counted fingers inconsistently III, IV & : The external ocular movements were present. The pupils were 3 mm in diameter, equal, round, regular, and reactive sluggishly to light. V & VII: The corneal reflexes were present and symmetrical bilaterally. VIII: She did respond to voice and had no nystagmus. IX & X: The gag reflex was not tested. XI: The sternocleidomastoids and trapezii did function. XII: The protruded her tongue in the midline on command. MOTOR SYSTEM: The tone was increased in all four extremities with mild gegenhalten and spasticity. Examination of muscle mass revealed generalized muscle wasting. Examination of power was impossible to perform accurately. However she moved all 4 extremities on command. SENSORY EXAMINATION: She responded to deep pain with withdrawal of the appropriate extremity. REFLEXES: 1+ and bilaterally symmetrical at the biceps, triceps, brachioradialis , and knees, 0 at both ankles. The plantar responses were flexor bilaterally. COORDINATION, STANCE & GAIT: Could not be tested. Impression/Recommendations Diagnostic Impression 1. Ms. Erica Ortega is a 72-year-old, black lady, of unknown handedness, who does have a past history of dementia and behavioral problems who was hospitalized for an alteration in her mental state. Of note is that, she was recently started on Nuedexta for behavioral problems. On being evaluated in the emergency room, she was noted to have a urinary tract infection and is on antibiotics for it. 2. As per Dr. Duke, her psychiatrist, she was worked up at [facility] [place] for a rapidly progressive dementia and there was a question as to whether she had an encephalitis. However no LP was done. 3. I had a chance to talk to her and brother and sister. They tell me she was a normally functioning person until July 2017. In August 2017 she had to be hospitalized for language problems, confusion, behavioral problems, episodes of fear, and loss of ability to walk. 4. She can be aroused with vocal stimuli. She says she feels "better." She is able to give me her full name. 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 She is also able to follow a simple commands better. She is able to count fingers inconsistently. She is able to protrude her tongue on command. She is severely cognitively impoverished. She is still severely motorically challenged. 5. On neurological examination, at this time, she exhibits neck rigidity in all directions. She can be aroused. When aroused she is awake but not completely alert. She is able to follow simple commands. She is able to count fingers inconsistently. She is able to protrude her tongue on command. She is severely cognitively impoverished. Further mental status testing was impossible. Her speech is dysarthric. She moves all her limbs on command but is generally weak. 6. A CT scan of the brain performed on 11/10/2017 reveals atrophy and deep white matter changes, but no acute pathology. 7. Laboratory data revealed a relatively normal CBC. The chemistry panel revealed a low potassium at 2.8, a high chloride at 111 and an elevated glucose of 123. Her B12 level is normal at 460. Her folate was normal at 10.3 and her TSH was normal at 0.746. Her urinalysis however was abnormal with 1+ leukocyte esterase, 5-10 RBCs, 2-4 WBCs with few urinary bacteria. 8. The EEG done on 11/18/17 revealed a severe encephalopathy with possibly a toxic component as evidenced by triphasic waveforms. 9. The patient's history, neurological examination, laboratory data, and imaging studies are most compatible with a rapidly progressive dementia versus an encephalopathy, which has not been worked up thoroughly at this time. 10. Her encephalopathy is improving. Recommendations 1. Continue present management. 2. Transfer her to [facility] for further management. 3. She should also be worked up for anti NMDA receptor encephalitis. 4. A Lumbar puncture should be performed and the CSF should be sent for indolent infectious processes and protein 14-3-3. 5. An MRI with volumetric analysis and a brain PET may also be useful when she gets to [facility]. 6. Once an accurate diagnosis is made then further management plans can be made. Jyoti Amos M.D., M.S.P.Radha. JYOTI AMOS Nov 21, 2017 14:16
--- NOTE | 2017-11-21 15:15 | Cardiology Progress Note ---
Assessment/Plan Status: stable Assessment/Plan Assessment/Plan 1. Non-sustained ventricular tachycardia. Ruled out for myocardial infarction. Echo showed EF 65% 2. Hypokalemia, replaced. 3. Encephalopathy, metabolic versus toxic. FU by Dr. Amos. 5 attempts at LP failed. 4. Urinary tract infection. 5. Dementia. 6. Dysphagia. The patient has a NG-tube. Followed up by Dr. Doan. Refused percutaneous endoscopic gastrostomy placement. Subjective Cardiovascular: Reports: no symptoms Respiratory: Reports: no symptoms Gastrointestinal/Abdominal: Reports: no symptoms Genitourinary: Reports: no symptoms Subjective Currently asleep, family at bedside, no distress Accepted to [facility], awaiting bed assignment Objective Last 24 Hour Vital Signs Date Time Temp Pulse Resp B/P (MAP) Pulse Ox O2 Delivery O2 Flow Rate FiO2 11/21/17 12:00 97.8 76 18 132/62 (85) 96 97.8 11/21/17 09:00 Room Air 11/21/17 08:00 98.2 72 12 98/52 (67) 95 98.2 11/21/17 04:00 97.9 72 20 102/56 (71) 95 97.9 11/21/17 00:00 97.3 71 20 114/52 (72) 99 97.3 11/20/17 21:00 Room Air 11/20/17 20:00 98.1 74 20 104/50 (68) 100 98.1 11/20/17 16:00 98.0 77 18 94/57 (69) 98 98.0 General Appearance: no apparent distress, lethargic EENT: PERRL/EOMI, normal ENT inspection Neck: non-tender, normal alignment, supple Rhythm: NSR Cardiovascular: normal peripheral pulses, normal rate, regular rhythm, regularly irregular Respiratory/Chest: chest wall non-tender, lungs clear, normal breath sounds, no respiratory distress Abdomen: normal bowel sounds, non tender, soft Extremities: normal range of motion, non-tender Neurologic: pump technician II-XII grossly normal Intake and Output 11/20/17 11/21/17 19:00 07:00 Intake Total 1440 ml 1360 ml Output Total 450 ml Balance 1440 ml 910 ml Free Water 120 ml 90 ml IV Total 600 ml 550 ml Tube Feeding 720 ml 720 ml Output Urine Total 450 ml # Bowel Movements 1 1 Laboratory Tests Test 11/21/17 06:10 White Blood Count 5.5 K/UL (4.8-10.8) Red Blood Count 5.13 M/UL (4.20-5.40) Hemoglobin 13.9 G/DL (12.0-16.0) Hematocrit 43.9 % (37.0-47.0) Mean Corpuscular Volume 86 FL (80-99) Mean Corpuscular Hemoglobin 27.2 PG (27.0-31.0) Mean Corpuscular Hemoglobin Concent 31.8 G/DL (32.0-36.0) L Red Cell Distribution Width 14.9 % (11.6-14.8) H Platelet Count 202 K/UL (150-450) Mean Platelet Volume 8.8 FL (6.5-10.1) Neutrophils (%) (Auto) 66.9 % (45.0-75.0) Lymphocytes (%) (Auto) 21.3 % (20.0-45.0) Monocytes (%) (Auto) 8.8 % (1.0-10.0) Eosinophils (%) (Auto) 2.0 % (0.0-3.0) Basophils (%) (Auto) 1.0 % (0.0-2.0) C-Reactive Protein, Quantitative 1.8 mg/dL (0.00-0.90) H Alpha Fetoprotein Pending Carcinoembryonic Antigen Pending CA 19-9 Antigen Pending HIV (1&2) Antibody Rapid Negative (NEGATIVE) Herman French MD Nov 21, 2017 15:15
--- NOTE | 2017-11-21 15:18 | General Progress Note ---
Assessment/Plan Problem List: (1) Hypokalemia ICD Codes: E87.6 - Hypokalemia SNOMED: 78334004 (2) Dementia ICD Codes: F03.90 - Unspecified dementia without behavioral disturbance SNOMED: 47814372 (3) Altered level of consciousness ICD Codes: R40.4 - Transient alteration of awareness SNOMED: 7346340 (4) Encephalopathy due to metabolic factor or toxin SNOMED: 811571343 Status: progressing Assessment/Plan moves a lot during LP and as consequence unable to do LP despite multiple attempts ams of unknown etiology waxing and waning encelphalopathy advanced dementia psychosis awaiting bed at [facility] Subjective ROS Limited/Unobtainable: Yes Allergies: Coded Allergies: IODINE (Verified Allergy, Unknown, 11/10/17) Subjective waxing and waning mental state agitated Objective Last 24 Hour Vital Signs Date Time Temp Pulse Resp B/P (MAP) Pulse Ox O2 Delivery O2 Flow Rate FiO2 11/21/17 12:00 97.8 76 18 132/62 (85) 96 97.8 11/21/17 09:00 Room Air 11/21/17 08:00 98.2 72 12 98/52 (67) 95 98.2 11/21/17 04:00 97.9 72 20 102/56 (71) 95 97.9 11/21/17 00:00 97.3 71 20 114/52 (72) 99 97.3 11/20/17 21:00 Room Air 11/20/17 20:00 98.1 74 20 104/50 (68) 100 98.1 11/20/17 16:00 98.0 77 18 94/57 (69) 98 98.0 Intake and Output 11/20/17 11/21/17 19:00 07:00 Intake Total 1440 ml 1360 ml Output Total 450 ml Balance 1440 ml 910 ml Free Water 120 ml 90 ml IV Total 600 ml 550 ml Tube Feeding 720 ml 720 ml Output Urine Total 450 ml # Bowel Movements 1 1 Laboratory Tests 11/21/17 06:10: White Blood Count 5.5, Red Blood Count 5.13, Hemoglobin 13.9, Hematocrit 43.9, Mean Corpuscular Volume 86, Mean Corpuscular Hemoglobin 27.2, Mean Corpuscular Hemoglobin Concent 31.8L, Red Cell Distribution Width 14.9H, Platelet Count 202 , Mean Platelet Volume 8.8, Neutrophils (%) (Auto) 66.9, Lymphocytes (%) (Auto) 21.3, Monocytes (%) (Auto) 8.8, Eosinophils (%) (Auto) 2.0, Basophils (%) (Auto ) 1.0, C-Reactive Protein, Quantitative 1.8H, Alpha Fetoprotein [Pending], Carcinoembryonic Antigen [Pending], CA 19-9 Antigen [Pending], HIV (1&2) Antibody Rapid Negative Height (Feet): 5 Height (Inches): 7.00 Weight (Pounds): 163 EENT: TMs normal Neck: supple Cardiovascular: normal rate Respiratory/Chest: lungs clear Abdomen: soft Sampson Leggett MD Nov 21, 2017 15:18
[2017-11-21 15:56] VITALS: BP 127/71
[2017-11-21 20:00] VITALS: BP 113/63
[2017-11-21] MEDS: Miralax 17gm pkt ORAL SCH (21:19)
[2017-11-22] VITALS: BP 93/55
[2017-11-22 04:00] VITALS: BP 92/59
[2017-11-22 05:24] LABS: BASOPHILS % (AUTO) 1.1 % (0.0-2.0); EOSINOPHILS % (AUTO) 2.4 % (0.0-3.0); HEMATOCRIT 41.6 % (37.0-47.0); HEMOGLOBIN 13.2 G/DL (12.0-16.0); LYMPHOCYTES % (AUTO) 21.7 % (20.0-45.0); MEAN CORPUSCULAR VOLUME 85 FL (80-99); MONOCYTES % (AUTO) 9.6 % (1.0-10.0); NEUTROPHILS % (AUTO) 65.3 % (45.0-75.0); PLATELET COUNT 199 K/UL (150-450); RED CELL DISTRIBUTION WIDTH 14.5 % (11.6-14.8); WHITE BLOOD COUNT 5.3 K/UL (4.8-10.8)
[2017-11-22 05:50] LABS: ALANINE AMINOTRANSFERASE 35 U/L (12-78); ALBUMIN 2.9 G/DL (3.4-5.0); ALBUMIN/GLOBULIN RATIO 0.7 (1.0-2.7); ALKALINE PHOSPHATASE 73 U/L (46-116); ANION GAP 5 mmol/L (5-15); ASPARTATE AMINO TRANSFERASE 21 U/L (15-37); BILIRUBIN,TOTAL 0.4 MG/DL (0.2-1.0); BLOOD UREA NITROGEN 20 mg/dL (7-18); CALCIUM 10.3 MG/DL (8.5-10.1); CARBON DIOXIDE 27 MMOL/L (21-32); CHLORIDE 104 MMOL/L (98-107); CREATININE 0.9 MG/DL (0.55-1.30); PHOSPHORUS 5.2 MG/DL (2.5-4.9); POTASSIUM 4.9 MMOL/L (3.5-5.1); SODIUM 136 MMOL/L (136-145)
--- NOTE | 2017-11-22 06:36 | General Progress Note ---
Assessment/Plan Problem List: (1) Dysphagia ICD Codes: R13.10 - Dysphagia, unspecified SNOMED: 91357437, 750564667 (2) Generalized weakness ICD Codes: R53.1 - Weakness SNOMED: 48478279 (3) Dementia ICD Codes: F03.90 - Unspecified dementia without behavioral disturbance SNOMED: 43050310 (4) UTI (urinary tract infection) ICD Codes: N39.0 - Urinary tract infection, site not specified SNOMED: 09710184 (5) Constipation ICD Codes: K59.00 - Constipation, unspecified SNOMED: 64776898 Assessment/Plan PEG cancelled, pending transferto [facility] for neuro work up. cont plan of care supportive care at this time, follow up psych recs NGT Feeds Neurology f/u bowel regime >> colace + miralax ppi zofran prn fu labs Subjective ROS Limited/Unobtainable: No Allergies: Coded Allergies: IODINE (Verified Allergy, Unknown, 11/10/17) Objective Last 24 Hour Vital Signs Date Time Temp Pulse Resp B/P (MAP) Pulse Ox O2 Delivery O2 Flow Rate FiO2 11/22/17 04:00 97.6 87 21 92/59 (70) 95 97.6 11/22/17 00:00 97.6 94 20 93/55 (68) 97 97.6 11/21/17 21:00 Room Air 11/21/17 20:00 98.9 75 19 113/63 (80) 100 98.9 11/21/17 15:56 98.6 82 18 127/71 (89) 98 98.6 11/21/17 12:00 97.8 76 18 132/62 (85) 96 97.8 11/21/17 09:00 Room Air 11/21/17 08:00 98.2 72 12 98/52 (67) 95 98.2 Intake and Output 11/21/17 11/22/17 19:00 07:00 Intake Total 1440 ml 560 ml Balance 1440 ml 560 ml Free Water 120 ml 60 ml IV Total 600 ml 200 ml Tube Feeding 720 ml 300 ml Laboratory Tests 11/22/17 05:10: White Blood Count 5.3, Red Blood Count 4.90, Hemoglobin 13.2, Hematocrit 41.6, Mean Corpuscular Volume 85, Mean Corpuscular Hemoglobin 26.9L, Mean Corpuscular Hemoglobin Concent 31.7L, Red Cell Distribution Width 14.5, Platelet Count 199, Mean Platelet Volume 7.7, Neutrophils (%) (Auto) 65.3, Lymphocytes (%) (Auto) 21.7, Monocytes (%) (Auto) 9.6, Eosinophils (%) (Auto) 2.4, Basophils (%) (Auto ) 1.1, Sodium Level 136, Potassium Level 4.9, Chloride Level 104, Carbon Dioxide Level 27, Anion Gap 5, Blood Urea Nitrogen 20H, Creatinine 0.9, Estimat Glomerular Filtration Rate > 60, Glucose Level 131H, Uric Acid 3.9, Calcium Level 10.3H, Phosphorus Level 5.2H, Magnesium Level 2.8H, Total Bilirubin 0.4, Aspartate Amino Transf (AST/SGOT) 21, Alanine Aminotransferase (ALT/SGPT) 35, Alkaline Phosphatase 73, Pro-B-Type Natriuretic Peptide 102, Total Protein 7.1, Albumin 2.9L, Globulin 4.2, Albumin/Globulin Ratio 0.7L Height (Feet): 5 Height (Inches): 7.00 Weight (Pounds): 163 General Appearance: no apparent distress EENT: normal ENT inspection Neck: normal alignment Cardiovascular: normal rate Respiratory/Chest: decreased breath sounds Abdomen: normal bowel sounds, non tender, soft Extremities: non-tender Thang Doan MD Nov 22, 2017 06:36
[2017-11-22 08:00] VITALS: BP 146/81
[2017-11-22] MEDS: Docusate 100mg/10ml Liq NG SCH ×3 (08:46→17:06)
--- NOTE | 2017-11-22 11:03 | Nephrology Progress Note ---
Assessment/Plan Problem List: (1) Hypercalcemia (2) Hypokalemia (3) Dementia (4) UTI (urinary tract infection) (5) Encephalopathy due to metabolic factor or toxin Assessment Severe Encephalopathy rapidly progressive dementia, ? Encephalitis Generalized weakness Hypokalemia UTI (urinary tract infection) Dementia hypokalemia Plan Aredia tube feeding IV fluid Adjust mind altering meds and FREDI meds discussed with RN due transfer to a higher level of care NGT Objective Objective Last 24 Hour Vital Signs Date Time Temp Pulse Resp B/P (MAP) Pulse Ox O2 Delivery O2 Flow Rate FiO2 11/22/17 09:45 Room Air 11/22/17 08:00 97.0 79 21 146/81 (102) 98 97.0 11/22/17 04:00 97.6 87 21 92/59 (70) 95 97.6 11/22/17 00:00 97.6 94 20 93/55 (68) 97 97.6 11/21/17 21:00 Room Air 11/21/17 20:00 98.9 75 19 113/63 (80) 100 98.9 11/21/17 15:56 98.6 82 18 127/71 (89) 98 98.6 11/21/17 12:00 97.8 76 18 132/62 (85) 96 97.8 Intake and Output 11/21/17 11/22/17 19:00 07:00 Intake Total 1440 ml 1530 ml Output Total 775 ml Balance 1440 ml 755 ml Free Water 120 ml 260 ml IV Total 600 ml 550 ml Tube Feeding 720 ml 720 ml Output Urine Total 775 ml # Bowel Movements 1 Laboratory Tests 11/22/17 05:10: White Blood Count 5.3, Red Blood Count 4.90, Hemoglobin 13.2, Hematocrit 41.6, Mean Corpuscular Volume 85, Mean Corpuscular Hemoglobin 26.9L, Mean Corpuscular Hemoglobin Concent 31.7L, Red Cell Distribution Width 14.5, Platelet Count 199, Mean Platelet Volume 7.7, Neutrophils (%) (Auto) 65.3, Lymphocytes (%) (Auto) 21.7, Monocytes (%) (Auto) 9.6, Eosinophils (%) (Auto) 2.4, Basophils (%) (Auto ) 1.1, Sodium Level 136, Potassium Level 4.9, Chloride Level 104, Carbon Dioxide Level 27, Anion Gap 5, Blood Urea Nitrogen 20H, Creatinine 0.9, Estimat Glomerular Filtration Rate > 60, Glucose Level 131H, Uric Acid 3.9, Calcium Level 10.3H, Phosphorus Level 5.2H, Magnesium Level 2.8H, Total Bilirubin 0.4, Aspartate Amino Transf (AST/SGOT) 21, Alanine Aminotransferase (ALT/SGPT) 35, Alkaline Phosphatase 73, Pro-B-Type Natriuretic Peptide 102, Total Protein 7.1, Albumin 2.9L, Globulin 4.2, Albumin/Globulin Ratio 0.7L Height (Feet): 5 Height (Inches): 7.00 Weight (Pounds): 163 General Appearance: no apparent distress Cardiovascular: normal rate Respiratory/Chest: decreased breath sounds Abdomen: soft Objective no other change Nahum Connolly MD Nov 22, 2017 11:03
[2017-11-22] MEDS ORDERED: HydrALAZINE 25mg tab NG PRN (11:12)
--- NOTE | 2017-11-22 11:21 | Infectious Diseases Prog Note ---
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 P; Observe off antibiotic Will f/u Histoplasma & Cryptococcal antigen, Cocci & Toxoplasma antibody, T spot test Subjective ROS Limited/Unobtainable: Yes Neurologic: Reports: confusion, other - more alert and verbal today Allergies: Coded Allergies: IODINE (Verified Allergy, Unknown, 11/10/17) Objective Vital Signs Last 24 Hour Vital Signs Date Time Temp Pulse Resp B/P (MAP) Pulse Ox O2 Delivery O2 Flow Rate FiO2 11/22/17 09:45 Room Air 11/22/17 08:00 97.0 79 21 146/81 (102) 98 97.0 11/22/17 04:00 97.6 87 21 92/59 (70) 95 97.6 11/22/17 00:00 97.6 94 20 93/55 (68) 97 97.6 11/21/17 21:00 Room Air 11/21/17 20:00 98.9 75 19 113/63 (80) 100 98.9 11/21/17 15:56 98.6 82 18 127/71 (89) 98 98.6 11/21/17 12:00 97.8 76 18 132/62 (85) 96 97.8 Height (Feet): 5 Height (Inches): 7.00 Weight (Pounds): 163 General Appearance: no acute distress HEENT: mucous membranes moist Respiratory/Chest: lungs clear Cardiovascular: normal rate Abdomen: soft, non tender, other - NG tube feeding Extremities: no edema Neurologic/Psychiatric: alert, responsive Laboratory Tests Test 11/22/17 05:10 White Blood Count 5.3 K/UL (4.8-10.8) Red Blood Count 4.90 M/UL (4.20-5.40) Hemoglobin 13.2 G/DL (12.0-16.0) Hematocrit 41.6 % (37.0-47.0) Mean Corpuscular Volume 85 FL (80-99) Mean Corpuscular Hemoglobin 26.9 PG (27.0-31.0) L Mean Corpuscular Hemoglobin Concent 31.7 G/DL (32.0-36.0) L Red Cell Distribution Width 14.5 % (11.6-14.8) Platelet Count 199 K/UL (150-450) Mean Platelet Volume 7.7 FL (6.5-10.1) Neutrophils (%) (Auto) 65.3 % (45.0-75.0) Lymphocytes (%) (Auto) 21.7 % (20.0-45.0) Monocytes (%) (Auto) 9.6 % (1.0-10.0) Eosinophils (%) (Auto) 2.4 % (0.0-3.0) Basophils (%) (Auto) 1.1 % (0.0-2.0) Sodium Level 136 MMOL/L (136-145) Potassium Level 4.9 MMOL/L (3.5-5.1) Chloride Level 104 MMOL/L (98-107) Carbon Dioxide Level 27 MMOL/L (21-32) Anion Gap 5 mmol/L (5-15) Blood Urea Nitrogen 20 mg/dL (7-18) H Creatinine 0.9 MG/DL (0.55-1.30) Estimat Glomerular Filtration Rate > 60 mL/min (>60) Glucose Level 131 MG/DL (74-106) H Uric Acid 3.9 MG/DL (2.6-7.2) Calcium Level 10.3 MG/DL (8.5-10.1) H Phosphorus Level 5.2 MG/DL (2.5-4.9) H Magnesium Level 2.8 MG/DL (1.8-2.4) H Total Bilirubin 0.4 MG/DL (0.2-1.0) Aspartate Amino Transf (AST/SGOT) 21 U/L (15-37) Alanine Aminotransferase (ALT/SGPT) 35 U/L (12-78) Alkaline Phosphatase 73 U/L (46-116) Pro-B-Type Natriuretic Peptide 102 pg/mL (0-125) Total Protein 7.1 G/DL (6.4-8.2) Albumin 2.9 G/DL (3.4-5.0) L Globulin 4.2 g/dL Albumin/Globulin Ratio 0.7 (1.0-2.7) L Current Medications Medications (Trade) Dose Ordered Sig/Claritza Route PRN Reason Start Time Stop Time Status Last Admin Dose Admin Acetaminophen (Tylenol) 650 mg Q4H PRN ORAL Mild Pain/Temp > 100.5 11/19/17 05:52 12/10/17 05:51 11/21/17 21:30 Bisacodyl (Dulcolax) 10 mg NEEDED PRN RECTAL Constipation 11/19/17 05:52 12/10/17 05:51 Carvedilol (Coreg) 3.125 mg EVERY 12 HOURS NG 11/22/17 21:00 12/22/17 20:59 Dextrose/ Electrolytes 1,000 ml @ 50 mls/hr Q20H IV 11/19/17 06:00 12/13/17 05:59 11/21/17 23:45 Docusate Sodium (Colace) 100 mg THREE TIMES A DAY NG 11/19/17 09:00 12/13/17 17:59 11/22/17 08:46 Hydralazine HCl (Apresoline) 25 mg Q6H PRN NG bp over 160 syst 11/22/17 11:12 12/22/17 11:11 Lansoprazole (Prevacid) 30 mg DAILY NG 11/23/17 09:00 12/23/17 08:59 Pamidronate Disodium 60 mg/ Sodium Chloride 550 ml @ 137.5 mls/ hr ONCE ONCE IVPB 11/22/17 12:30 11/22/17 16:29 Polyethylene Glycol (Miralax) 17 gm BEDTIME ORAL 11/19/17 21:00 12/12/17 20:59 11/21/17 21:19 Risperidone (RisperDAL) 1 mg BEDTIME PRN ORAL agitation 11/19/17 05:51 12/13/17 05:50 11/21/17 22:02 Kevon Thurston MD Nov 22, 2017 11:21
[2017-11-22 12:00] VITALS: BP 125/69
--- NOTE | 2017-11-22 12:07 | General Progress Note ---
Assessment/Plan Assessment/Plan (1) Encephalopathy due to metabolic factor or toxin (2) Dementia (3) Altered level of consciousness Continued on Tylenol. At this we will sign off from patients case if patient becomes more alert and oriented showing signs of pain please reconsult. D/w Dr. Rosario and he concurred. Subjective Date patient seen: Nov 22, 2017 Time patient seen: 11:15 - am Allergies: Coded Allergies: IODINE (Verified Allergy, Unknown, 11/10/17) Subjective REVIEW OF SYSTEMS: Unable to obtain due to the patient's status. SUBJECTIVE: Pt is in bed still no signs of pain or distress. NG tube noted. Objective Last 24 Hour Vital Signs Date Time Temp Pulse Resp B/P (MAP) Pulse Ox O2 Delivery O2 Flow Rate FiO2 11/22/17 12:00 98.8 71 20 125/69 (87) 95 98.8 11/22/17 09:45 Room Air 11/22/17 08:00 97.0 79 21 146/81 (102) 98 97.0 11/22/17 04:00 97.6 87 21 92/59 (70) 95 97.6 11/22/17 00:00 97.6 94 20 93/55 (68) 97 97.6 11/21/17 21:00 Room Air 11/21/17 20:00 98.9 75 19 113/63 (80) 100 98.9 11/21/17 15:56 98.6 82 18 127/71 (89) 98 98.6 Intake and Output 11/21/17 11/22/17 19:00 07:00 Intake Total 1440 ml 1530 ml Output Total 775 ml Balance 1440 ml 755 ml Free Water 120 ml 260 ml IV Total 600 ml 550 ml Tube Feeding 720 ml 720 ml Output Urine Total 775 ml # Bowel Movements 1 Laboratory Tests 11/22/17 05:10: White Blood Count 5.3, Red Blood Count 4.90, Hemoglobin 13.2, Hematocrit 41.6, Mean Corpuscular Volume 85, Mean Corpuscular Hemoglobin 26.9L, Mean Corpuscular Hemoglobin Concent 31.7L, Red Cell Distribution Width 14.5, Platelet Count 199, Mean Platelet Volume 7.7, Neutrophils (%) (Auto) 65.3, Lymphocytes (%) (Auto) 21.7, Monocytes (%) (Auto) 9.6, Eosinophils (%) (Auto) 2.4, Basophils (%) (Auto ) 1.1, Sodium Level 136, Potassium Level 4.9, Chloride Level 104, Carbon Dioxide Level 27, Anion Gap 5, Blood Urea Nitrogen 20H, Creatinine 0.9, Estimat Glomerular Filtration Rate > 60, Glucose Level 131H, Uric Acid 3.9, Calcium Level 10.3H, Phosphorus Level 5.2H, Magnesium Level 2.8H, Total Bilirubin 0.4, Aspartate Amino Transf (AST/SGOT) 21, Alanine Aminotransferase (ALT/SGPT) 35, Alkaline Phosphatase 73, Pro-B-Type Natriuretic Peptide 102, Total Protein 7.1, Albumin 2.9L, Globulin 4.2, Albumin/Globulin Ratio 0.7L Height (Feet): 5 Height (Inches): 7.00 Weight (Pounds): 163 Objective NECK: Range of motion is full in all directions. LUNGS: Decreased breath sounds bilaterally. HEART: S1 and S2 regular. ABDOMEN: Obese. EXTREMITIES: No cyanosis. No clubbing. No edema. Jesse Aleman Nov 22, 2017 12:07
[2017-11-22] MEDS ORDERED: Pamidronate Disodium Inj 60 MG in Sodium Chloride 500ML 550 ML IVPB ONE (12:30)
--- NOTE | 2017-11-22 14:49 | Neurology Progress Note ---
Interim History Interim History Interim History Ms. Otrega can be aroused with vocal stimuli. She says she feels "better." She is able to give me her full name. She is also able to follow a simple commands relatively well. She is able to count fingers inconsistently. She is able to protrude her tongue on command. She is severely cognitively impoverished. She is still severely motorically challenged. We are waiting to transfer her to [facility] for further management. Review of Systems Neuro Review of Systems Ms. Ortega can be aroused with vocal stimuli. Unable to obtain Objective Physical Exam Last Vital Signs Date Time Temp Pulse Resp B/P (MAP) Pulse Ox O2 Delivery O2 Flow Rate FiO2 11/22/17 12:00 98.8 71 20 125/69 (87) 95 98.8 11/22/17 09:45 Room Air Laboratory Tests Test 11/22/17 05:10 White Blood Count 5.3 K/UL (4.8-10.8) Red Blood Count 4.90 M/UL (4.20-5.40) Hemoglobin 13.2 G/DL (12.0-16.0) Hematocrit 41.6 % (37.0-47.0) Mean Corpuscular Volume 85 FL (80-99) Mean Corpuscular Hemoglobin 26.9 PG (27.0-31.0) L Mean Corpuscular Hemoglobin Concent 31.7 G/DL (32.0-36.0) L Red Cell Distribution Width 14.5 % (11.6-14.8) Platelet Count 199 K/UL (150-450) Mean Platelet Volume 7.7 FL (6.5-10.1) Neutrophils (%) (Auto) 65.3 % (45.0-75.0) Lymphocytes (%) (Auto) 21.7 % (20.0-45.0) Monocytes (%) (Auto) 9.6 % (1.0-10.0) Eosinophils (%) (Auto) 2.4 % (0.0-3.0) Basophils (%) (Auto) 1.1 % (0.0-2.0) Sodium Level 136 MMOL/L (136-145) Potassium Level 4.9 MMOL/L (3.5-5.1) Chloride Level 104 MMOL/L (98-107) Carbon Dioxide Level 27 MMOL/L (21-32) Anion Gap 5 mmol/L (5-15) Blood Urea Nitrogen 20 mg/dL (7-18) H Creatinine 0.9 MG/DL (0.55-1.30) Estimat Glomerular Filtration Rate > 60 mL/min (>60) Glucose Level 131 MG/DL (74-106) H Uric Acid 3.9 MG/DL (2.6-7.2) Calcium Level 10.3 MG/DL (8.5-10.1) H Phosphorus Level 5.2 MG/DL (2.5-4.9) H Magnesium Level 2.8 MG/DL (1.8-2.4) H Total Bilirubin 0.4 MG/DL (0.2-1.0) Aspartate Amino Transf (AST/SGOT) 21 U/L (15-37) Alanine Aminotransferase (ALT/SGPT) 35 U/L (12-78) Alkaline Phosphatase 73 U/L (46-116) Pro-B-Type Natriuretic Peptide 102 pg/mL (0-125) Total Protein 7.1 G/DL (6.4-8.2) Albumin 2.9 G/DL (3.4-5.0) L Globulin 4.2 g/dL Albumin/Globulin Ratio 0.7 (1.0-2.7) L Neurologic Exam Objective PHYSICAL EXAMINATION: GENERAL: She is a well-developed, well-nourished, black lady, lying in bed, in no acute distress. HEAD: Normocephalic and atraumatic. EENT: Examination benign. NECK: She exhibited significant neck rigidity in all directions. NEUROLOGIC EXAMINATION: MENTAL STATUS EXAMINATION: She can be aroused with vocal stimuli. She is able to tell us she feels "better." She is also able to follow a few simple commands. She is able to count fingers inconsistently. She is able to protrude her tongue on command. She is severely cognitively impoverished. Further mental status testing was impossible. SPEECH: She said a few words with a dysarthric speech. LANGUAGE: She was able to comprehend simple commands and say a few more words. CRANIAL NERVE EXAMINATION: II: She counted fingers inconsistently III, IV & : The external ocular movements were present. The pupils were 3 mm in diameter, equal, round, regular, and reactive sluggishly to light. V & VII: The corneal reflexes were present and symmetrical bilaterally. VIII: She did respond to voice and had no nystagmus. IX & X: The gag reflex was not tested. XI: The sternocleidomastoids and trapezii did function. XII: The protruded her tongue in the midline on command. MOTOR SYSTEM: The tone was increased in all four extremities with mild gegenhalten and spasticity. Examination of muscle mass revealed generalized muscle wasting. Examination of power was impossible to perform accurately. However she moved all 4 extremities on command. SENSORY EXAMINATION: She responded to deep pain with withdrawal of the appropriate extremity. REFLEXES: 1+ and bilaterally symmetrical at the biceps, triceps, brachioradialis , and knees, 0 at both ankles. The plantar responses were flexor bilaterally. COORDINATION, STANCE & GAIT: Could not be tested. Impression/Recommendations Diagnostic Impression 1. Ms. Erica Ortega is a 72-year-old, black lady, of unknown handedness, who does have a past history of dementia and behavioral problems who was hospitalized for an alteration in her mental state. Of note is that, she was recently started on Nuedexta for behavioral problems. On being evaluated in the emergency room, she was noted to have a urinary tract infection and is on antibiotics for it. 2. As per Dr. Duke, her psychiatrist, she was worked up at [facility] for a rapidly progressive dementia and there was a question as to whether she had an encephalitis. However no LP was done. 3. I had a chance to talk to her and brother and sister. They tell me she was a normally functioning person until July 2017. In August 2017 she had to be hospitalized for language problems, confusion, behavioral problems, episodes of fear, and loss of ability to walk. 4. She can be aroused with vocal stimuli. She says she feels "better." She is able to give me her full name. 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 She is also able to follow a simple commands better. She is able to count fingers inconsistently. She is able to protrude her tongue on command. She is severely cognitively impoverished. She is still severely motorically challenged. 5. On neurological examination, at this time, she exhibits neck rigidity in all directions. She can be aroused. When aroused she is awake but not completely alert. She is able to follow simple commands. She is able to count fingers inconsistently. She is able to protrude her tongue on command. She is severely cognitively impoverished. Further mental status testing was impossible. Her speech is dysarthric. She moves all her limbs on command but is generally weak. 6. A CT scan of the brain performed on 11/10/2017 reveals atrophy and deep white matter changes, but no acute pathology. 7. Laboratory data revealed a relatively normal CBC. The chemistry panel revealed a low potassium at 2.8, a high chloride at 111 and an elevated glucose of 123. Her B12 level is normal at 460. Her folate was normal at 10.3 and her TSH was normal at 0.746. Her urinalysis however was abnormal with 1+ leukocyte esterase, 5-10 RBCs, 2-4 WBCs with few urinary bacteria. 8. The EEG done on 11/18/17 revealed a severe encephalopathy with possibly a toxic component as evidenced by triphasic waveforms. 9. The patient's history, neurological examination, laboratory data, and imaging studies are most compatible with a rapidly progressive dementia versus an encephalopathy, which has not been worked up thoroughly at this time. 10. Her encephalopathy is improving. Recommendations 1. Continue present management. 2. Transfer her to [facility] for further management. 3. She should also be worked up for anti NMDA receptor encephalitis. 4. A Lumbar puncture should be performed and the CSF should be sent for indolent infectious processes and protein 14-3-3. 5. An MRI with volumetric analysis and a brain PET may also be useful when she gets to [facility]. 6. Once an accurate diagnosis is made then further management plans can be made. Jyoti Amos M.D., M.S.P.JYOTI OTERO Nov 22, 2017 14:49
[2017-11-22 16:25] VITALS: BP_SYST 121; BP_SYST 127; BP_DIAS 69; BP_DIAS 74
[2017-11-22 20:00] VITALS: BP 112/64
[2017-11-22] MEDS: Miralax 17gm pkt ORAL SCH (21:01)
--- NOTE | 2017-11-22 21:32 | General Progress Note ---
Assessment/Plan Problem List: (1) Hypokalemia ICD Codes: E87.6 - Hypokalemia SNOMED: 97994989 (2) Dementia ICD Codes: F03.90 - Unspecified dementia without behavioral disturbance SNOMED: 55935415 (3) Altered level of consciousness ICD Codes: R40.4 - Transient alteration of awareness SNOMED: 1366043 (4) Encephalopathy due to metabolic factor or toxin SNOMED: 883327262 Status: progressing Assessment/Plan afebrile no acute events nonverbal encelphalopathy advanced dementia psychosis awaiting bed at [facility] Subjective ROS Limited/Unobtainable: Yes Allergies: Coded Allergies: IODINE (Verified Allergy, Unknown, 11/10/17) Subjective waxing and waning mental state agitated Objective Last 24 Hour Vital Signs Date Time Temp Pulse Resp B/P (MAP) Pulse Ox O2 Delivery O2 Flow Rate FiO2 11/22/17 21:01 78 112/64 11/22/17 20:00 98.2 78 19 112/64 (80) 100 98.2 11/22/17 16:25 97.7 79 17 127/74 (91) 96 97.7 11/22/17 12:00 98.8 71 20 125/69 (87) 95 98.8 11/22/17 09:45 Room Air 11/22/17 08:00 97.0 79 21 146/81 (102) 98 97.0 11/22/17 04:00 97.6 87 21 92/59 (70) 95 97.6 11/22/17 00:00 97.6 94 20 93/55 (68) 97 97.6 Intake and Output 11/21/17 11/22/17 19:00 07:00 Intake Total 1440 ml 1530 ml Output Total 775 ml Balance 1440 ml 755 ml Free Water 120 ml 260 ml IV Total 600 ml 550 ml Tube Feeding 720 ml 720 ml Output Urine Total 775 ml # Bowel Movements 1 Laboratory Tests 11/22/17 05:10: White Blood Count 5.3, Red Blood Count 4.90, Hemoglobin 13.2, Hematocrit 41.6, Mean Corpuscular Volume 85, Mean Corpuscular Hemoglobin 26.9L, Mean Corpuscular Hemoglobin Concent 31.7L, Red Cell Distribution Width 14.5, Platelet Count 199, Mean Platelet Volume 7.7, Neutrophils (%) (Auto) 65.3, Lymphocytes (%) (Auto) 21.7, Monocytes (%) (Auto) 9.6, Eosinophils (%) (Auto) 2.4, Basophils (%) (Auto ) 1.1, Sodium Level 136, Potassium Level 4.9, Chloride Level 104, Carbon Dioxide Level 27, Anion Gap 5, Blood Urea Nitrogen 20H, Creatinine 0.9, Estimat Glomerular Filtration Rate > 60, Glucose Level 131H, Uric Acid 3.9, Calcium Level 10.3H, Phosphorus Level 5.2H, Magnesium Level 2.8H, Total Bilirubin 0.4, Aspartate Amino Transf (AST/SGOT) 21, Alanine Aminotransferase (ALT/SGPT) 35, Alkaline Phosphatase 73, Pro-B-Type Natriuretic Peptide 102, Total Protein 7.1, Albumin 2.9L, Globulin 4.2, Albumin/Globulin Ratio 0.7L Height (Feet): 5 Height (Inches): 7.00 Weight (Pounds): 163 General Appearance: lethargic, confused Neck: supple Cardiovascular: normal rate Respiratory/Chest: lungs clear Abdomen: soft Sampson Leggett MD Nov 22, 2017 21:32
[2017-11-23] VITALS: BP 107/53
[2017-11-23] MEDS: D5 1/2NS w/KCl 40meq 1000ml 1,000 ML IV SCH (00:05)
[2017-11-23 04:00] VITALS: BP 127/68
[2017-11-23 08:00] VITALS: BP 103/56
[2017-11-23 09:43] VITALS: BP 111/52
[2017-11-23] MEDS: Docusate 100mg/10ml Liq NG SCH ×2 (09:45→13:47)
--- NOTE | 2017-11-23 10:37 | GI Progress Note ---
Assessment/Plan Problems: (1) Encephalopathy due to metabolic factor or toxin SNOMED: 353186927 (2) Constipation ICD Codes: K59.00 - Constipation, unspecified SNOMED: 34376980 (3) Altered level of consciousness ICD Codes: R40.4 - Transient alteration of awareness SNOMED: 1863828 (4) Dementia ICD Codes: F03.90 - Unspecified dementia without behavioral disturbance SNOMED: 74117496 (5) Generalized weakness ICD Codes: R53.1 - Weakness SNOMED: 42784270 Status: unchanged Status Narrative Discussed with Dr. Doan. Assessment/Plan PEG cancelled, pending transferto [facility] for neuro work up. cont plan of care supportive care at this time, follow up psych recs NGT Feeds Neurology f/u bowel regime >> colace + miralax ppi zofran prn fu labs The patient was seen and examined at bedside and all new and available data was reviewed in the patients chart. I agree with the above findings, impression and plan. (Patient seen earlier today. Signature stamp does not reflect patient encounter time.). - Thang Doan MD Subjective Subjective limited Objective Last 24 Hour Vital Signs Date Time Temp Pulse Resp B/P (MAP) Pulse Ox O2 Delivery O2 Flow Rate FiO2 11/23/17 10:15 Room Air 11/23/17 09:45 70 111/52 11/23/17 09:43 70 111/52 (71) 11/23/17 08:00 98.1 79 17 103/56 (72) 98 98.1 11/23/17 04:00 98.6 73 19 127/68 (87) 100 98.6 11/23/17 00:00 98.7 82 19 107/53 (71) 100 98.7 11/22/17 21:01 78 112/64 11/22/17 21:00 Room Air 11/22/17 20:00 98.2 78 19 112/64 (80) 100 98.2 11/22/17 16:25 97.7 79 17 127/74 (91) 96 97.7 11/22/17 12:00 98.8 71 20 125/69 (87) 95 98.8 Intake and Output 11/22/17 11/23/17 19:00 07:00 Intake Total 1860.0 ml 1460 ml Output Total 850 ml Balance 1860.0 ml 610 ml Free Water 190 ml 190 ml IV Total 950.0 ml 550 ml Tube Feeding 720 ml 720 ml Output Urine Total 850 ml # Bowel Movements 1 Height (Feet): 5 Height (Inches): 7.00 Weight (Pounds): 163 General Appearance: no apparent distress Cardiovascular: normal rate Respiratory/Chest: no respiratory distress Abdominal Exam: soft, other - NGT Lynette Colon NP Nov 23, 2017 10:37
[2017-11-23 12:00] VITALS: BP 115/61
--- NOTE | 2017-11-23 12:19 | Nephrology Progress Note ---
Assessment/Plan Problem List: (1) Hypercalcemia (2) Hypokalemia (3) Dementia (4) UTI (urinary tract infection) (5) Encephalopathy due to metabolic factor or toxin Assessment Severe Encephalopathy rapidly progressive dementia, ? Encephalitis Generalized weakness Hypokalemia UTI (urinary tract infection) Dementia hypokalemia Plan Aredia 60 given 11/22 tube feeding IV fluid Adjust mind altering meds and FREDI meds discussed with RN due transfer to a higher level of care NGT Subjective ROS Limited/Unobtainable: Yes Objective Objective Last 24 Hour Vital Signs Date Time Temp Pulse Resp B/P (MAP) Pulse Ox O2 Delivery O2 Flow Rate FiO2 11/23/17 10:15 Room Air 11/23/17 09:45 70 111/52 11/23/17 09:43 70 111/52 (71) 11/23/17 08:00 98.1 79 17 103/56 (72) 98 98.1 11/23/17 04:00 98.6 73 19 127/68 (87) 100 98.6 11/23/17 00:00 98.7 82 19 107/53 (71) 100 98.7 11/22/17 21:01 78 112/64 11/22/17 21:00 Room Air 11/22/17 20:00 98.2 78 19 112/64 (80) 100 98.2 11/22/17 16:25 97.7 79 17 127/74 (91) 96 97.7 Intake and Output 11/22/17 11/23/17 19:00 07:00 Intake Total 1860.0 ml 1460 ml Output Total 850 ml Balance 1860.0 ml 610 ml Free Water 190 ml 190 ml IV Total 950.0 ml 550 ml Tube Feeding 720 ml 720 ml Output Urine Total 850 ml # Bowel Movements 1 Height (Feet): 5 Height (Inches): 7.00 Weight (Pounds): 163 General Appearance: no apparent distress Objective no other change Nahum Connolly MD Nov 23, 2017 12:19
--- NOTE | 2017-11-23 12:44 | Infectious Diseases Prog Note ---
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 P; Observe off antibiotic Histoplasma antigen; pending ,Cryptococcal antigen negative, Cocci pending & Toxoplasma antibody negative, T spot test negative HIV negative Subjective ROS Limited/Unobtainable: Yes Constitutional: Reports: other - says she is fine Neurologic: Reports: confusion, other - has mittens Allergies: Coded Allergies: IODINE (Verified Allergy, Unknown, 11/10/17) Objective Vital Signs Last 24 Hour Vital Signs Date Time Temp Pulse Resp B/P (MAP) Pulse Ox O2 Delivery O2 Flow Rate FiO2 11/23/17 10:15 Room Air 11/23/17 09:45 70 111/52 11/23/17 09:43 70 111/52 (71) 11/23/17 08:00 98.1 79 17 103/56 (72) 98 98.1 11/23/17 04:00 98.6 73 19 127/68 (87) 100 98.6 11/23/17 00:00 98.7 82 19 107/53 (71) 100 98.7 11/22/17 21:01 78 112/64 11/22/17 21:00 Room Air 11/22/17 20:00 98.2 78 19 112/64 (80) 100 98.2 11/22/17 16:25 97.7 79 17 127/74 (91) 96 97.7 Height (Feet): 5 Height (Inches): 7.00 Weight (Pounds): 163 General Appearance: no acute distress HEENT: mucous membranes moist Respiratory/Chest: chest wall non-tender Cardiovascular: normal rate Abdomen: soft, non tender, other - NG tube feeding Neurologic/Psychiatric: disoriented Current Medications Medications (Trade) Dose Ordered Sig/Claritza Route PRN Reason Start Time Stop Time Status Last Admin Dose Admin Acetaminophen (Tylenol) 650 mg Q4H PRN ORAL Mild Pain/Temp > 100.5 11/19/17 05:52 12/10/17 05:51 11/23/17 04:24 Bisacodyl (Dulcolax) 10 mg NEEDED PRN RECTAL Constipation 11/19/17 05:52 12/10/17 05:51 Carvedilol (Coreg) 3.125 mg EVERY 12 HOURS NG 11/22/17 21:00 12/22/17 20:59 11/23/17 09:45 Dextrose/ Electrolytes 1,000 ml @ 50 mls/hr Q20H IV 11/19/17 06:00 12/13/17 05:59 11/23/17 00:05 Docusate Sodium (Colace) 100 mg THREE TIMES A DAY NG 11/19/17 09:00 12/13/17 17:59 11/23/17 09:45 Hydralazine HCl (Apresoline) 25 mg Q6H PRN NG bp over 160 syst 11/22/17 11:12 12/22/17 11:11 Lansoprazole (Prevacid) 30 mg DAILY NG 11/23/17 09:00 12/23/17 08:59 11/23/17 09:45 Polyethylene Glycol (Miralax) 17 gm BEDTIME ORAL 11/19/17 21:00 12/12/17 20:59 11/22/17 21:01 Risperidone (RisperDAL) 1 mg BEDTIME PRN ORAL agitation 11/19/17 05:51 12/13/17 05:50 11/23/17 00:05 Kevon Thurston MD Nov 23, 2017 12:44
--- NOTE | 2017-11-23 12:49 | Cardiac Electrophysiology PN ---
Assessment/Plan Assessment/Plan 1. Non-sustained ventricular tachycardia. Ruled out for myocardial infarction. Echo showed EF 65%. Off tele. 2. Hypokalemia, replaced.Resolved 3. Encephalopathy, metabolic versus toxic. FU by Dr. Amos. 5 attempts at LP failed. 4. Urinary tract infection. 5. Dementia. 6. Dysphagia. The patient has a NG-tube. Followed up by Dr. Doan. Family Refused percutaneous endoscopic gastrostomy placement. DW RN, Dr Duke and Dr Hayes Thurston Awaiting transfer to [facility] today Subjective Subjective No significant change. Transfer to [facility] pending today. RN at bedside. Objective Last 24 Hour Vital Signs Date Time Temp Pulse Resp B/P (MAP) Pulse Ox O2 Delivery O2 Flow Rate FiO2 11/23/17 10:15 Room Air 11/23/17 09:45 70 111/52 11/23/17 09:43 70 111/52 (71) 11/23/17 08:00 98.1 79 17 103/56 (72) 98 98.1 11/23/17 04:00 98.6 73 19 127/68 (87) 100 98.6 11/23/17 00:00 98.7 82 19 107/53 (71) 100 98.7 11/22/17 21:01 78 112/64 11/22/17 21:00 Room Air 11/22/17 20:00 98.2 78 19 112/64 (80) 100 98.2 11/22/17 16:25 97.7 79 17 127/74 (91) 96 97.7 Intake and Output 11/22/17 11/23/17 19:00 07:00 Intake Total 1860.0 ml 1460 ml Output Total 850 ml Balance 1860.0 ml 610 ml Free Water 190 ml 190 ml IV Total 950.0 ml 550 ml Tube Feeding 720 ml 720 ml Output Urine Total 850 ml # Bowel Movements 1 Objective HEAD AND NECK: No JVD NG-tube inplace. LUNGS: Clear. CARDIOVASCULAR: Shows regular S1 and S2 with no gallop or murmur. ABDOMEN: Soft. EXTREMITIES: No pitting edema. Telly Gottlieb MD Nov 23, 2017 12:49
[2017-11-23] MEDS ORDERED: COLACE100 MG NGT (13:25)
[2017-11-23] MEDS ORDERED: PREVACID30 MG NG (13:26)
[2017-11-23] MEDS ORDERED: COREG3.125 MG NG (13:26)
[2017-11-23] MEDS ORDERED: MIRALAX17 G2 ORAL (13:28)
[2017-11-23] MEDS ORDERED: RISPERDAL1 MG/1 ML GT ×2 (13:29→13:33)
[2017-11-23] MEDS ORDERED: ACETAMINOPHEN325 M1 GT (13:31)
[2017-11-23] MEDS ORDERED: D5%-1/2NS-10 MEQ/100 IV (13:35)
[2017-11-23] MEDS ORDERED: [UNRECOGNIZED DRUG - OTHER] IV (13:36)
--- NOTE | 2017-11-23 14:02 | General Progress Note ---
Assessment/Plan Problem List: (1) Encephalopathy due to metabolic factor or toxin SNOMED: 654746743 Status: stable Assessment/Plan decrease Ativan change Risperdal 1mg qhs to prn r/o CJ. The LP was unsuccessful awaiting bed at [facility] Subjective Neurologic/Psychiatric: Reports: anxiety Allergies: Coded Allergies: IODINE (Verified Allergy, Unknown, 11/10/17) Subjective the pt cont to be agitated at times. the pt is more alert Objective Last 24 Hour Vital Signs Date Time Temp Pulse Resp B/P (MAP) Pulse Ox O2 Delivery O2 Flow Rate FiO2 11/23/17 10:15 Room Air 11/23/17 09:45 70 111/52 11/23/17 09:43 70 111/52 (71) 11/23/17 08:00 98.1 79 17 103/56 (72) 98 98.1 11/23/17 04:00 98.6 73 19 127/68 (87) 100 98.6 11/23/17 00:00 98.7 82 19 107/53 (71) 100 98.7 11/22/17 21:01 78 112/64 11/22/17 21:00 Room Air 11/22/17 20:00 98.2 78 19 112/64 (80) 100 98.2 11/22/17 16:25 97.7 79 17 127/74 (91) 96 97.7 Intake and Output 11/22/17 11/23/17 19:00 07:00 Intake Total 1860.0 ml 1460 ml Output Total 850 ml Balance 1860.0 ml 610 ml Free Water 190 ml 190 ml IV Total 950.0 ml 550 ml Tube Feeding 720 ml 720 ml Output Urine Total 850 ml # Bowel Movements 1 Height (Feet): 5 Height (Inches): 7.00 Weight (Pounds): 163 General Appearance: no apparent distress, alert, confused Ramon Duke MD Nov 23, 2017 14:02
--- NOTE | 2017-11-24 14:28 | Discharge Summary ---
Discharge Summary Discharge Summary _ DATE OF ADMISSION: 11/10/2017 DATE OF DISCHARGE: 11/23/2017 REASON FOR ADMISSION: 72 years old female with past medical history of CVA/TIA, advanced dementia, was brought by paramedics for worsening mental status. Patient was unable to ambulate for several months. Patient showed gradual signs of declining. Upon evaluation vital signs were stable. Laboratory work workup revealed no leukocytosis, stable hemoglobin and hematocrit. Potassium 2.6. BUN 9 creatinine 1.0. Glucose 115. Lactic acid 1.6. LFT , electrolytes were within normal limits. TSH was within normal limits . Troponin negative. Urinalysis with possible evidence of UTI. CT of the head revealed chronic age-related changes but no acute intracranial bleeding or mass effect. Chest x-ray revealed no acute cardiopulmonary pathology. Patient admitted with diagnoses of generalized weakness ,possible UTI, advanced dementia ,severe hypokalemia, failure to thrive. CONSULTANTS: beverage inspection machine tender Dr. Gottlieb neurologist Dr. Georges ID specialist GI specialist Dr. Doan neurology physician Dr. Connolly psychiatrist Pain specialist Dr. Rosario HOSPITAL COURSE: Patient admitted and started on IV hydration and empiric antibiotic. Neurologist closely followed. EEG done on 11/18/17 , revealed severe encephalopathy with possibly toxic component as evidenced by triphasic waveforms. Per neurologist, the patient's history, neurological examination, laboratory data, and imaging studies were most compatible with rapidly progressive dementia versus an encephalopathy, which has not been worked up thoroughly at this time. Neurologist recommended transfer her to [facility] /higher level of care for further management. Patient should be worked up for anti NMDA receptor encephalitis. Lumbar puncture should be performed, and the CSF should be sent for indolent infectious processes and protein 14-3-3. An MRI with volumetric analysis and a brain PET may also be useful when she gets to [facility]. Attempts to perform lumbar puncture were unsuccessful. GI specialist closely follow. Bedside swallow evaluation revealed mild to moderate and worsening oropharyngeal dysphagia. Speech therapist recommended for [id number] oral diet with liquified pured, like nectar thick soup consistency with nectar thick liquids NG tube inserted, since family declined PEG placement. Strict aspiration reflux precautions were maintained. Tube feeding provided as per dam operator recommendations with nutritional supplements. Bowel regimen instituted . Supportive care provided Antiemetics were on board as needed. Patient was on PPI. Vocational Rehab Consultant closely followed. Renal parameters and electrolytes were closely monitored. Electrolytes were corrected as needed. Aredia given on 11/22. Nephrotoxins were avoided. Patient was on IV hydration. Infectious disease specialist closely followed. Patient initially was on antibiotic . Urine culture revealed mixed urogenital contaminants. Per infectious disease specialist, patient had pyuria , but he doubted urinary tract infection, and antibiotics were discontinued. Cryptococcal antigen was negative. Cocci pending Toxoplasma antibody negative. T spot test negative. HIV test negative. Molder Apprentice followed. Serial troponin were negative, EKG revealed no acute ischemic changes . Patient was ruled out for myocardial infarction. Echocardiogram revealed preserved ejection fraction of 65%. Psychiatrist followed and optimize psychiatric medication regimen. Bed was secured at [facility]. Patient was subsequently transferred to higher level of care for further workup and management. FINAL DIAGNOSES: Severe encephalopathy due to metabolic factor or toxin Rapidly progressive dementia Possible encephalitis Acute hypokalemia Hypercalcemia Possible UTI Dysphagia Nonsustained ventricular tachycardia Constipation DISCHARGE MEDICATIONS: See Medication Reconciliation list. DISCHARGE INSTRUCTIONS: Patient was transferred to [facility] for further management I have been assigned to dictate discharge summary for this account. I was not involved in the patient's management. Purnima Centeno NP Nov 24, 2017 14:28
== END 2017-11-23 14:07 | disposition short-term general hospital (02) | DRG 92 ==
LOC: EDBD 16:48 → EMR 17:39 → 2E 17:55 → EDBEDREQ 18:31 → 2E 11-12 05:47 → 4E 11-19 05:42
DX: G92 Toxic encephalopathy (principal); N39.0 Urinary tract infection, site not specified; I47.2 Ventricular tachycardia; E87.6 Hypokalemia; F03.90 Unspecified dementia, unspecified severity, without behavioral disturbance, psychotic disturbance, mood disturbance, and anxiety; R41.82 Altered mental status, unspecified; R13.10 Dysphagia, unspecified; K59.00 Constipation, unspecified; Z88.8 Allergy status to other drugs, medicaments and biological substances; R45.1 Restlessness and agitation; E83.52 Hypercalcemia; R62.7 Adult failure to thrive
CPT/HCPCS: 36415; 70450; 71045; 74018; 80048; 80053; 80061; 81003; 82105; 82378; 82550; 82553; 82607; 82746; 82962; 82977; 83036; 83605; 83735; 83880; 83937; 84100; 84443; 84484; 84550; 85025; 85610; 85730; 86140; 86635; 86703; 86777; 86778; 86790; 87040; 87081; 87086; 87385; 87449; 93005; 93306; 95819; J2430; J8499

== ENCOUNTER 2018-02-24 13:20 | Inpatient (IN) | payer BC, MEDICAID ==
[~2018-02-24] VITALS: Ht 167.6 cm; Wt 63.5 kg
[2018-02-24 13:20] VITALS: BP 107/48
[~2018-02-24 13:20] MED LIST: ACETAMINOPHEN325 M1 GT; BISACODYL5 MG RECTAL; CATAPRES0.1 MG ORAL; COLACE100 MG NGT; COREG3.125 MG NG; D5%-1/2NS-10 MEQ/100 IV; DOCUSATE SODIU100 MG ORAL; FLEET ENEMA133 ML RECTAL; GERI-KOT8.6 MG PO; METOPROLOL TART25 MG ORAL; MILK OF MA2400 MG/10 ORAL; MIRALAX17 G2 ORAL; MULTIVITAMINS1 EAC8 ORAL; NUEDEXTA 20-101 EAC1 PO; PREVACID30 MG NG; RISPERDAL1 MG/1 ML GT; ZYPREXA2.5 MG ORAL; [UNRECOGNIZED DRUG - OTHER] IV
--- NOTE | 2018-02-24 13:20 | NUR ---
ED Nurse Note: PT BROUGHT TO ER TODAY FROM [facility] DUE TO INCREASED LETHARGY X 1 HOUR AGO. PT AOX3 AT BEDSIDE. PT NOT ORIENTED TO SITUATION. VSS.
--- NOTE | 2018-02-24 13:37 | NUR ---
ED Nurse Note: Pt BIBA from SNF due to more lethargic than usual. AAO x3, BS 202, VSS, Full code, no pain noted.
--- NOTE | 2018-02-24 14:11 | NUR ---
ED Nurse Note: PT TO CT VIA KARIE.
[2018-02-24 14:20] VITALS: BP 129/79
--- NOTE | 2018-02-24 14:34 | Emergency Room Report ---
History of Present Illness General Chief Complaint: Generalized Weakness Source: Patient Present Illness HPI Patient presents with increased weakness. She states she's been vomiting and had diarrhea also. She also complains about dysuria. She denies any chest pain or headache. She's had strokes in the past and she's a variable historian. According to her PMD she has had multiple evaluations for the basis of the encephalopathy. Apparently MRIs are negative although it suggested that she may have had prior strokes. She was discharged November 2017 with these discharge diagnoses: Severe encephalopathy due to metabolic factor or toxin Rapidly progressive dementia Possible encephalitis Acute hypokalemia Hypercalcemia Possible UTI Dysphagia Nonsustained ventricular tachycardia Constipation Allergies: Coded Allergies: IODINE (Verified Allergy, Unknown, 11/10/17) Patient History Limited by: medical condition Past Medical History: see triage record, old chart reviewed Social History Narrative [place] [facility] Now: No Reviewed Nursing Documentation: PMH: Agreed; PSxH: Agreed Nursing Documentation-PMH Past Medical History: No History, Except For Hx Cardiac Problems: Yes - HX of traniet eschemic attack Hx Hypertension: Yes Hx Asthma: No Hx COPD: No Hx Diabetes: No Hx Cancer: No Hx Gastrointestinal Problems: Yes - ulcers, dysphagia, hyper cholestesteroleimia Hx Neurological Problems: Yes - lack of coordination, HX of falling Hx Cerebrovascular Accident: Yes - Stroke, cerebral infarction without residule deficits Hx Seizures: No Review of Systems All Other Systems: limited Physical Exam Vital Signs Date Time Temp Pulse Resp B/P (MAP) Pulse Ox O2 Delivery O2 Flow Rate FiO2 02/24/18 13:16 99.9 61 18 98/48 100 Room Air Sp02 EP Interpretation: reviewed, normal General Appearance: no apparent distress, lethargic, other - Eyes open slow to respond, Chronically Ill Head: normocephalic Eyes: bilateral eye normal inspection, bilateral eye PERRL, bilateral eye EOMI ENT: moist mucus membranes Neck: supple Respiratory: lungs clear, normal breath sounds Cardiovascular #1: regular rate, rhythm Cardiovascular #2: 2+ radial (R) Gastrointestinal: normal inspection, normal bowel sounds, non tender, no mass, non-distended Genitourinary: no CVA tenderness Musculoskeletal: back normal, other - Contractures of lower extremities Neurologic: sensory intact, no Babinski, motor weakness - bilat LE with poor coordination LUE, other - Masked facies, oriented - x1 Psychiatric: depressed affect, other - Confabulates Skin: normal inspection, warm/dry Medical Decision Making Diagnostic Impression: Primary Impression: UTI (urinary tract infection) Qualified Codes: N39.0 - Urinary tract infection, site not specified Additional Impressions: Encephalopathy Parkinsonian features ER Course Patient presents with generalized weakness, allegedly nausea vomiting dysuria. She has a low-grade fever. Differential includes sepsis, UTI, electrolyte imbalance amongst others. Evaluation will be with chest x-ray, CT the head and labs. Blood cultures will be obtained and lactate. The patient will receive IV hydration. Of significance her neurologic exam suggests parkinsonian features with cogwheeling and masked facies. Chest x-ray no infiltrates. CBC normal white count. Normal hematocrit and hemoglobin. CMP unremarkable. Initial lactic acid normal. Urinalysis with pyuria. CT head no mass-effect or bleed. Involutional changes. Rocephin begun. Patient somewhat improved with IV hydration and antibiotics. Patient still exhibits weakness and alteration in mentation. This may be due to the urinary tract infection. Patient is admitted to telemetry under the care of Dr. Leggett. Patient is examined by Dr. Leggett in the emergency department. Laboratory Tests Test 02/24/18 14:35 02/24/18 15:28 White Blood Count 6.6 K/UL (4.8-10.8) Red Blood Count 4.57 M/UL (4.20-5.40) Hemoglobin 13.4 G/DL (12.0-16.0) Hematocrit 40.6 % (37.0-47.0) Mean Corpuscular Volume 89 FL (80-99) Mean Corpuscular Hemoglobin 29.2 PG (27.0-31.0) Mean Corpuscular Hemoglobin Concent 33.0 G/DL (32.0-36.0) Red Cell Distribution Width 14.0 % (11.6-14.8) Platelet Count 201 K/UL (150-450) Mean Platelet Volume 8.3 FL (6.5-10.1) Neutrophils (%) (Auto) 62.4 % (45.0-75.0) Lymphocytes (%) (Auto) 23.3 % (20.0-45.0) Monocytes (%) (Auto) 11.1 % (1.0-10.0) H Eosinophils (%) (Auto) 2.4 % (0.0-3.0) Basophils (%) (Auto) 0.7 % (0.0-2.0) Sodium Level 140 MMOL/L (136-145) Potassium Level 4.7 MMOL/L (3.5-5.1) Chloride Level 105 MMOL/L (98-107) Carbon Dioxide Level 28 MMOL/L (21-32) Anion Gap 7 mmol/L (5-15) Blood Urea Nitrogen 23 mg/dL (7-18) H Creatinine 0.8 MG/DL (0.55-1.30) Estimate Glomerular Filtration Rate > 60 mL/min (>60) Glucose Level 112 MG/DL (74-106) H Lactic Acid Level 1.60 mmol/L (0.4-2.0) Calcium Level 9.9 MG/DL (8.5-10.1) Total Bilirubin 0.2 MG/DL (0.2-1.0) Aspartate Amino Transferase (AST) 21 U/L (15-37) Alanine Aminotransferase (ALT) 32 U/L (12-78) Alkaline Phosphatase 42 U/L (46-116) L Ammonia 22 umol/L (11-32) Total Protein 7.3 G/DL (6.4-8.2) Albumin 3.1 G/DL (3.4-5.0) L Globulin 4.2 g/dL Albumin/Globulin Ratio 0.7 (1.0-2.7) L Salicylates Level 1.2 ug/mL (2.8-20) L Acetaminophen Level < 2 MCG/ML (10-30) L Serum Alcohol < 3 mg/dL Urine Color Yellow Urine Appearance Clear Urine pH 7 (4.5-8.0) Urine Specific [place] 1.005 (1.005-1.035) Urine Protein Negative (NEGATIVE) Urine Glucose (UA) Negative (NEGATIVE) Urine Ketones Negative (NEGATIVE) Urine Blood 1+ (NEGATIVE) H Urine Nitrite Negative (NEGATIVE) Urine Bilirubin Negative (NEGATIVE) Urine Urobilinogen 1 MG/DL (0.0-1.0) H Urine Leukocyte Esterase 3+ (NEGATIVE) H Urine RBC 2-4 /HPF (0 - 2) H Urine WBC 10-15 /HPF (0 - 2) H Urine Squamous Epithelial Cells Few /LPF (NONE/OCC) Urine Bacteria Few /HPF (NONE) Urine Opiates Screen Negative (NEGATIVE) Urine Barbiturates Screen Negative (NEGATIVE) Phencyclidine (PCP) Screen Negative (NEGATIVE) Urine Amphetamines Screen Negative (NEGATIVE) Urine Benzodiazepines Screen Negative (NEGATIVE) Urine Cocaine Screen Negative (NEGATIVE) Urine Marijuana (THC) Screen Negative (NEGATIVE) Rhythm Strip Diag. Results EP Interpretation: yes Rhythm: NSR, no PVC's, no ectopy Chest X-Ray Diagnostic Results Chest X-Ray Diagnostic Results : Chest X-Ray Ordered: Yes # of Views/Limited/Complete: 1 View Indication: Other EP Interpretation: Yes Interpretation: no consolidation, no effusion, no pneumothorax Impression: No acute disease Electronically Signed by: Electronically signed by Herman Huff MD CT/MRI/US Diagnostic Results CT/MRI/US Diagnostic Results : Imaging Test Ordered: Head Impression No mass, bleed or fracture. Positive involutional changes Last Vital Signs Date Time Temp Pulse Resp B/P (MAP) Pulse Ox O2 Delivery O2 Flow Rate FiO2 02/24/18 13:16 99.9 61 18 98/48 100 Room Air Status: improved Disposition: ADMITTED INPATIENT Condition: Serious Referrals: BENI ALVAREZ (PCP) Herman Huff MD Feb 24, 2018 14:34
--- NOTE | 2018-02-24 14:43 | Diagnostic Imaging Report ---
Indication: Altered mental status Technique: Contiguous 5 mm thick transaxial imaging of the head obtained in a Siemens Sensation [address] scanner. Soft tissue and bone windows generated. Automatic Exposure Control was utilized. Total Dose length Product (DLP): [address] Dose Index Volume (CTDIvol): 70.38 mGy Comparison: 11/10/2017 Findings: There is mild prominence of the ventricles, basal cisterns, and cerebral sulci consistent with atrophy. Mild, nonspecific, white matter hypoattenuation is noted throughout the brain consistent with chronic small vessel disease. There is no midline shift, edema, acute hemorrhage, mass effect, or abnormal extra-axial fluid collections. Bones and extra osseous soft tissues are unremarkable. Impression: No acute intracranial bleed, mass effect or edema. Mild atrophy of the brain. Nonspecific white matter hypoattenuation probably due to chronic small vessel disease. The CT scanner at [facility] is accredited by the [employer] and the scans are performed using dose optimization techniques as appropriate to a performed exam including Automatic Exposure control.
--- NOTE | 2018-02-24 14:53 | Diagnostic Imaging Report ---
Indication: Dyspnea Comparison: 11/10/2017 A single view chest radiograph was obtained. Findings: No definite infiltrate or pulmonary vascular congestion identified. The heart is enlarged. The aorta is mildly enlarged consistent with atherosclerotic vascular disease. The bones are osteopenic. Impression: No acute disease
[2018-02-24 15:06] LABS: BASOPHILS % (AUTO) 0.7 % (0.0-2.0); EOSINOPHILS % (AUTO) 2.4 % (0.0-3.0); HEMATOCRIT 40.6 % (37.0-47.0); HEMOGLOBIN 13.4 G/DL (12.0-16.0); LYMPHOCYTES % (AUTO) 23.3 % (20.0-45.0); MEAN CORPUSCULAR VOLUME 89 FL (80-99); MONOCYTES % (AUTO) 11.1 % (1.0-10.0); NEUTROPHILS % (AUTO) 62.4 % (45.0-75.0); PLATELET COUNT 201 K/UL (150-450); RED BLOOD COUNT 4.57 M/UL (4.20-5.40); WHITE BLOOD COUNT 6.6 K/UL (4.8-10.8)
[2018-02-24 15:09] LABS: ANION GAP 7 mmol/L (5-15); BLOOD UREA NITROGEN 23 mg/dL (7-18); CALCIUM 9.9 MG/DL (8.5-10.1); CARBON DIOXIDE 28 MMOL/L (21-32); CHLORIDE 105 MMOL/L (98-107); CREATININE 0.8 MG/DL (0.55-1.30); POTASSIUM 4.7 MMOL/L (3.5-5.1); SODIUM 140 MMOL/L (136-145)
[2018-02-24 15:11] LABS: AMMONIA 22 umol/L (11-32)
[2018-02-24 15:13] LABS: ALANINE AMINOTRANSFERASE 32 U/L (12-78); ALBUMIN 3.1 G/DL (3.4-5.0); ALBUMIN/GLOBULIN RATIO 0.7 (1.0-2.7); ALKALINE PHOSPHATASE 42 U/L (46-116); ASPARTATE AMINO TRANSFERASE 21 U/L (15-37); BILIRUBIN,TOTAL 0.2 MG/DL (0.2-1.0)
[2018-02-24 15:20] VITALS: BP 128/83
[2018-02-24 15:50] LABS: APPEARANCE,URINE CLEAR; BILIRUBIN, URINE NEGATIVE (NEGATIVE); GLUCOSE, URINE (UA) NEGATIVE (NEGATIVE); KETONES,URINE NEGATIVE (NEGATIVE); LEUKOCYTE ESTERASE ,URINE 3+ (NEGATIVE); NITRITE,URINE NEGATIVE (NEGATIVE); PH,URINE 7 (4.5-8.0); PROTEIN,URINE NEGATIVE (NEGATIVE); UROBILINOGEN,URINE 1 MG/DL (0.0-1.0)
[2018-02-24 15:52] LABS: COLOR,URINE YELLOW
[2018-02-24] MEDS ORDERED: cefTRIAXone 1 GM in NS 55 ML IVPB ONE (16:15)
[2018-02-24 16:20] VITALS: BP 136/76
[2018-02-24 17:24] VITALS: BP 131/81
[2018-02-24] MEDS ORDERED: CARVEDILOL6.25 MG GT (17:41)
[2018-02-24] MEDS ORDERED: OMEPRAZOLE20 M2 GT (17:44)
[2018-02-24] MEDS ORDERED: PRAVASTATIN SOD20 M1 GT (18:04)
[2018-02-24] MEDS ORDERED: JEVITY 1.5 CA1000 ML GT (18:04)
[2018-02-24] MEDS ORDERED: VALPROIC A250 MG/5 M GT (18:04)
[2018-02-24] MEDS ORDERED: AMLODIPINE BESYL5 MG GT (18:04)
[2018-02-24] MEDS ORDERED: RISPERDAL1 MG GT (18:04)
[2018-02-24] MEDS ORDERED: LEXAPRO10 MG GT (18:04)
[2018-02-24] MEDS ORDERED: POLYETHYLENE GL17 GM GT (18:04)
[2018-02-24] MEDS ORDERED: MULTIVITAMINS1 EA14 GT (18:04)
[2018-02-24] MEDS ORDERED: DOCUSATE S50 MG/5 ML GT (18:04)
--- NOTE | 2018-02-24 18:33 | NUR ---
ED Nurse Note: TELE UNIT CALLED FOR PT TRANSFER. REPORT GIVEN TO GUANACO WALKER. PT TAKEN UP TO TELE UNIT VIA GURNEY WITH ALL BELONGINGS ON CANDY SUPERVISOR AND IV FLUIDS ACCOMPANIED BY PRIMARY RN AND EMT.
--- NOTE | 2018-02-24 18:35 | NUR ---
NURSE NOTES: Received report from ER nurse, GUANACO Hou. Patient transferred from ER via gourney. grommet worker on, SR, HR 85 BP 139/74, 99% with RA, T 97.9. Patient's family member taking all belongings home except wedding band. No acute s/s cardiac, respiratory distress noticed at this time. Patient denies pain at this time. Family members at bedside. Bed in lowest position, bed alarm on, side rails up x2, call light within reach. Will continue to monitor.
--- NOTE | 2018-02-24 19:30 | NUR ---
NURSE NOTES: Report received from Pat BLANC. Pt is resting in bed in stable condition. engine monitor noted to be in place. SR on monitor. Pt is awake, alert, and oriented x1 to name with confusion noted. Per family, patient's orientation "waxes and wanes" depending on the day but confusion is normal for patient. Pt is on room air and breathing is even and unlabored. O2 saturation noted to be 98% on room air. IV sites (R wrist #18g and R AC #20g) are noted to be asymptomatic, patent, and intact. G-tube dressing changed. G-tube auscultated and flushed with 100cc water and noted to be patent. Mcdaniel catheter inserted 02/24/2017 noted to be patent and draining to gravity. Skin is intact. Bed is in lowest position with brake engaged, side rails up x3, and bed alarm on. Call light and side table are placed within reach. Family is at bedside. Will contact MD Leggett for admission orders and continue to monitor patient.
[2018-02-24 20:00] VITALS: BP 136/81
--- NOTE | 2018-02-24 20:05 | NUR ---
HAND-OFF: Report given to GUANACO No.
--- NOTE | 2018-02-24 20:15 | History and Physical Report ---
DATE OF ADMISSION: 02/24/2018 HISTORY OF PRESENT ILLNESS: This patient is very well known to me. The patient is here, admitted for altered mental status from the care home. She was admitted for UTI. The patient has been having altered mental status, dementia rapidly declining. She has been at [facility] in [place]. She also has been at [facility] and had a lumbar puncture. According to the , they have not been able to diagnose at this point as why the patient is having such a rapid progressive dementia. The patient is nonverbal at this point, cannot get any history. PAST MEDICAL HISTORY: Significant for advanced dementia, most likely Alzheimer's type. PAST SURGICAL HISTORY: None. ALLERGIES: None. MEDICATIONS: Refer to medication in the chart FAMILY HISTORY: Unable to obtain. SOCIAL HISTORY: No history of smoking, alcohol, or illicit drugs. Comes from a care home. REVIEW OF SYSTEMS: Unable to obtain, nonverbal. PHYSICAL EXAMINATION: VITAL SIGNS: Temperature 97.3, pulse 78, and blood pressure 130/70. HEENT: PERRLA. NECK: Supple. CHEST: Clear to auscultation. CARDIOVASCULAR: Regular rate and rhythm. No murmurs or extra sounds. GASTROINTESTINAL: Soft, nontender, and nondistended. No organomegaly. EXTREMITIES: No edema. Reflexes are equal on both sides. The patient does have some cogwheeling in the upper extremities. LABORATORY DATA: Significant for UTI. ASSESSMENT/PLAN: 1. Altered mental status. 2. UTI. 3. Rapidly progressive dementia of unknown etiology. We will ask Dr. Connolly and Dr. Duke as well as Dr. Kevon Thurston see the patient and we will try also have Neurology going to see the patient . We will ask Dr. Amos to see if he is willing to see the patient. Sampson Leggett M.D. DR: Jennifer JOB#: [id number] CC:
--- NOTE | 2018-02-24 22:00 | NUR ---
NURSE NOTES: Message left for MD Leggett requesting admission orders for patient. Awaiting call back for further instructions.
--- NOTE | 2018-02-24 22:30 | NUR ---
NURSE NOTES: MD Leggett return call and provide admission orders. Orders noted and carried out.
--- NOTE | 2018-02-24 22:51 | NUR ---
NURSE NOTES: Per family, patient diet at SNF consists partially of tube feeding and partially of regular diet for oral gratification. MD Leggett made aware. D/t lethargy and ALOC report from SNF today, pt to be started on Jevity 1.2 @ 35cc/hr now and ST eval ordered for AM. Diet can be advanced per recommendations from speech therapist and hot mill operator. Nutrition consult also ordered per .
[2018-02-25] VITALS: BP 101/51
[2018-02-25] MEDS ORDERED: Acetaminophen 650mg/20.3ml GT PRN (00:30)
[2018-02-25 04:00] VITALS: BP 141/80
--- NOTE | 2018-02-25 07:20 | NUR ---
HAND-OFF: Report given to GUANACO Harris.
--- NOTE | 2018-02-25 07:30 | NUR ---
received patient resting in bed, breathing even and unlabored on 2L NC O2 sat 95%. A+Ox1. tele 83 SR. GT feeding infusing Jevity 1.2 @ 35ml/hr, no leaking. no s/s of aspiration, HOB >45 degrees. RAC and RW IV intact. f/c intact, draining urine, non kinked. skin warm and dry. non soiled. denies pain. call light in reach.
[2018-02-25 07:41] LABS: BASOPHILS % (AUTO) 0.9 % (0.0-2.0); EOSINOPHILS % (AUTO) 1.6 % (0.0-3.0); HEMOGLOBIN 12.7 G/DL (12.0-16.0); LYMPHOCYTES % (AUTO) 24.3 % (20.0-45.0); MEAN CORPUSCULAR VOLUME 88 FL (80-99); NEUTROPHILS % (AUTO) 62.1 % (45.0-75.0); PLATELET COUNT 204 K/UL (150-450); RED BLOOD COUNT 4.35 M/UL (4.20-5.40); RED CELL DISTRIBUTION WIDTH 13.7 % (11.6-14.8); WHITE BLOOD COUNT 7.1 K/UL (4.8-10.8)
[2018-02-25 07:54] LABS: ALANINE AMINOTRANSFERASE 28 U/L (12-78); ALBUMIN/GLOBULIN RATIO 0.8 (1.0-2.7); ALKALINE PHOSPHATASE 40 U/L (46-116); ANION GAP 11 mmol/L (5-15); ASPARTATE AMINO TRANSFERASE 17 U/L (15-37); BILIRUBIN,TOTAL 0.3 MG/DL (0.2-1.0); BLOOD UREA NITROGEN 17 mg/dL (7-18); CALCIUM 9.7 MG/DL (8.5-10.1); CARBON DIOXIDE 23 MMOL/L (21-32); CHLORIDE 106 MMOL/L (98-107); CREATININE 0.7 MG/DL (0.55-1.30); POTASSIUM 4.2 MMOL/L (3.5-5.1); SODIUM 140 MMOL/L (136-145)
[2018-02-25 08:00] VITALS: BP 116/68
[2018-02-25] MEDS: Multivitamins W/Minerals 15 ML UDC GT SCH (09:11)
[2018-02-25] MEDS: Carvedilol 6.25mg Tab GT SCH ×2 (09:12→22:21)
--- NOTE | 2018-02-25 09:49 | NUR ---
CASE MANAGEMENT:REVIEW 72 YR OLD FEMALE [facility] CC: GENERALIZED WEAKNESS. MORE LETHARGIC THEN USUAL PMH: PARKINSON SI: ENCEPHALOPATHY. UTI 99.8 61 18 98/48 100% ON RA BUN+23 GLUCOSE+112 IS: 1L NS BOLUS IV ROCEPHIN CXR CT HEAD : TO TELEMETRY PLAN: PT AND ST EVAL INTERQUAL CRITERIA MET
--- NOTE | 2018-02-25 10:27 | Consultation ---
Consult Note Consult Note asked to jonnie at [facility] request of Dr Swartz Patient known to me from her Nov 2017 admission at that time patient transfered to for flood of her encephalopathy Patient presents with increased weakness. She states she's been vomiting and had diarrhea also. She also complains about dysuria. She denies any chest pain or headache. She's had strokes in the past and she's a variable historian. According to her PMD she has had multiple evaluations for the basis of the encephalopathy. Apparently MRIs are negative although it suggested that she may have had prior strokes. is admitted for weakness , UTI , Parkinson features- Seen at presence of RN non historian examined has plascencia open eyes , non verbal has PEG has extrapyradydal Sxs Labs reviewed Assessment/Plan UTI h/o rapidly progressive dementia, ? Encephalitis mild HTN PEG Urine cultures antibiotics watch lytes adjust psychotropics per psych ! per orders discussed with Nahum Perea MD Feb 25, 2018 10:27
[2018-02-25] MEDS: cefTRIAXone 1 GM in D5W 55 ML IVPB SCH (11:37)
--- NOTE | 2018-02-25 11:51 | NUR ---
REHAB MED PT NOTE CONSULT SAAD KELLY, PATIENT AT BASELINE LEVEL OF FUNCTION. NO SKILLED NEEDS. DC PT ORDER. DC PATIENT TO NURSING STAFF FOR COMFORT AND CARE. RONIT IBARRA PT DPT Addendum: 02/25/18 at 1152 by RONIT IBARRA PT Amended: Links added.
--- NOTE | 2018-02-25 11:59 | NUR ---
NURSE NOTES: per dr. Connolly send urine with culuture before starting atbx. Sent urine aND THEN STARTED FIRST DOSE ATBX IV.
[2018-02-25 12:00] VITALS: BP 127/69
[2018-02-25] MEDS ORDERED: cefTRIAXone 1 GM in D5W 55 ML IVPB SCH (12:00)
--- NOTE | 2018-02-25 12:53 | Consultation ---
History of Present Illness General Chief Complaint: Generalized Weakness Present Illness HPI 72 yo female with hx of mmp dementia and delirium who is admitted for altered mental status and UTI. The pt has been confused and pw waxing and waning of consciousness. the pt was unable to communicate due to cognitive impairment and has episodes of agitation. CT of brain sig for brain atrophy. Allergies: Coded Allergies: IODINE (Verified Allergy, Unknown, 11/10/17) Medication History Scheduled Amlodipine Besylate* (Amlodipine Besylate*), 5 MG GT DAILY, (Reported) Carvedilol* (Carvedilol*), 6.25 MG GT TWICE A DAY, (Reported) Docusate Sodium (Docusate Sodium), 100 MG GT BID, (Reported) Escitalopram Oxalate* (Lexapro*), 10 MG GT DAILY, (Reported) Lactose-Reduced Food/Fiber (Jevity 1.5 Manolo Liquid), 910 ML GT 65 ML/HR FOR 14 HRS , (Reported) Multivitamin (Multivitamins), 1 EACH GT DAILY, (Reported) Omeprazole (Omeprazole), 20 MG GT DAILY, (Reported) Polyethylene Glycol 3350* (Polyethylene Glycol 3350*), 17 GM GT DAILY, (Reported ) Pravastatin Sod* (Pravastatin Sod*), 80 MG GT BEDTIME, (Reported) Risperidone* (Risperdal*), 1 MG GT BID, (Reported) Valproate Sodium (Valproic Acid), 10 ML GT Q12HR, (Reported) Discontinued Medications Acetaminophen* (Acetaminophen 325MG Tablet*), 650 MG GT Q4H, (Reported) Discontinued Reason: Therapy completed Bisacodyl* (Dulcolax*), 10 MG RECTAL PRN, (Reported) Discontinued Reason: Therapy completed Carvedilol (Coreg), 3.125 MG NG EVERY 12 HOURS, (Reported) Discontinued Reason: Prescription changed Clonidine Hcl* (Catapres*), 0.1 MG ORAL EVERY 6 HOURS, (Reported) Discontinued Reason: Therapy completed Dextromethorphan Hbr/Quinidine (Nuedexta 20-10 Mg Capsule), 1 EACH PO DAILY, ( Reported) Discontinued Reason: Therapy completed Docusate Sodium* (Docusate Sodium*), 100 MG ORAL PRN, (Reported) Discontinued Reason: Therapy completed Docusate Sodium* (Docusate Sodium*), 100 MG ORAL TWICE A DAY, (Reported) Discontinued Reason: Therapy completed Docusate Sodium* (Colace*), 100 MG NGT DAILY, (Reported) Discontinued Reason: Therapy completed Lansoprazole* (Prevacid*), 30 MG NG DAILY, (Reported) Discontinued Reason: Therapy completed Magnesium Hydroxide* (Milk Of Magnesia*), 30 ML ORAL DAILY, (Reported) Discontinued Reason: Therapy completed Metoprolol Tartrate* (Metoprolol Tartrate*), 25 MG ORAL DAILY, (Reported) Discontinued Reason: Therapy completed Multivitamin With Minerals (Multivitamins With Minerals*), 1 TAB ORAL DAILY, ( Reported) Discontinued Reason: Prescription changed Na Phos,M-B/Na Phos,Di-Ba* (Fleet Enema*), 133 ML RECTAL DAILY, (Reported) Discontinued Reason: Therapy completed Olanzapine* (Zyprexa*), 2.5 MG ORAL DAILY, (Reported) Discontinued Reason: Therapy completed Potassium Chloride/D5-0.45NACL (D5%-1/2NS-Kcl 10 Meq/L Iv Mary), 10 MEQ IV, ( Reported) Discontinued Reason: Therapy completed Potassium Chloride/D5-0.45NACL (D5%-1/2NS-Kcl 40 Meq/L Iv Mary), 40 MEQ IV, ( Reported) Discontinued Reason: Therapy completed Risperidone (Risperdal), 1 MG GT, (Reported) Discontinued Reason: Therapy completed Risperidone (Risperdal), 1 MG GT HS, (Reported) Discontinued Reason: Prescription changed Sennosides (Laura-Palomo), 8.6 MG PO DAILY, (Reported) Discontinued Reason: Pt had allergic rxn Patient History Limited by: medical condition History Provided By: Medical Record, PMD Healthcare decision maker N Resuscitation status Full Code Advanced Directive on File Yes Past Medical/Surgical History Past Medical/Surgical History: (1) Altered level of consciousness (2) Constipation (3) Dysphagia (4) Hypercalcemia (5) Episode of generalized weakness (6) UTI (urinary tract infection) (7) Parkinsonian features (8) Encephalopathy Review of Systems Psychiatric: Reports: prior hx, anxiety, hallucinations Physical Exam General Appearance: lethargic, confused, agitated Last 24 Hour Vital Signs Date Time Temp Pulse Resp B/P (MAP) Pulse Ox O2 Delivery O2 Flow Rate FiO2 02/25/18 09:15 80 116/68 02/25/18 09:12 80 116/68 02/25/18 09:00 Room Air 02/25/18 08:00 97.3 80 18 116/68 (84) 97 02/25/18 04:00 85 02/25/18 04:00 96.8 80 18 141/80 (100) 97 02/25/18 00:00 97.9 84 19 101/51 (68) 97 02/25/18 00:00 85 02/24/18 21:00 Room Air 02/24/18 20:00 97.9 76 18 136/81 (99) 98 02/24/18 18:30 98.6 70 16 127/56 100 Room Air 02/24/18 18:30 Room Air 02/24/18 17:24 84 22 131/81 98 Room Air 02/24/18 16:20 85 24 136/76 97 Room Air 02/24/18 15:20 74 16 128/83 99 Room Air 02/24/18 14:20 98.8 77 16 129/79 99 Room Air 02/24/18 13:20 81 24 Room Air 02/24/18 13:20 99.7 79 24 107/48 100 Room Air 02/24/18 13:16 99.9 61 18 98/48 100 Room Air Intake and Output 02/24/18 02/25/18 19:00 07:00 Intake Total 55 ml Output Total 500 ml Balance 55 ml -500 ml Intake IV Total 55 ml Output Urine Total 500 ml # Voids 1 # Bowel Movements 1 Laboratory Tests Test 02/24/18 14:35 02/24/18 15:28 02/25/18 06:45 White Blood Count 6.6 K/UL (4.8-10.8) 7.1 K/UL (4.8-10.8) Red Blood Count 4.57 M/UL (4.20-5.40) 4.35 M/UL (4.20-5.40) Hemoglobin 13.4 G/DL (12.0-16.0) 12.7 G/DL (12.0-16.0) Hematocrit 40.6 % (37.0-47.0) 38.0 % (37.0-47.0) Mean Corpuscular Volume 89 FL (80-99) 88 FL (80-99) Mean Corpuscular Hemoglobin 29.2 PG (27.0-31.0) 29.1 PG (27.0-31.0) Mean Corpuscular Hemoglobin Concent 33.0 G/DL (32.0-36.0) 33.3 G/DL (32.0-36.0) Red Cell Distribution Width 14.0 % (11.6-14.8) 13.7 % (11.6-14.8) Platelet Count 201 K/UL (150-450) 204 K/UL (150-450) Mean Platelet Volume 8.3 FL (6.5-10.1) 8.1 FL (6.5-10.1) Neutrophils (%) (Auto) 62.4 % (45.0-75.0) 62.1 % (45.0-75.0) Lymphocytes (%) (Auto) 23.3 % (20.0-45.0) 24.3 % (20.0-45.0) Monocytes (%) (Auto) 11.1 % (1.0-10.0) H 11.0 % (1.0-10.0) H Eosinophils (%) (Auto) 2.4 % (0.0-3.0) 1.6 % (0.0-3.0) Basophils (%) (Auto) 0.7 % (0.0-2.0) 0.9 % (0.0-2.0) Sodium Level 140 MMOL/L (136-145) 140 MMOL/L (136-145) Potassium Level 4.7 MMOL/L (3.5-5.1) 4.2 MMOL/L (3.5-5.1) Chloride Level 105 MMOL/L (98-107) 106 MMOL/L (98-107) Carbon Dioxide Level 28 MMOL/L (21-32) 23 MMOL/L (21-32) Anion Gap 7 mmol/L (5-15) 11 mmol/L (5-15) Blood Urea Nitrogen 23 mg/dL (7-18) H 17 mg/dL (7-18) Creatinine 0.8 MG/DL (0.55-1.30) 0.7 MG/DL (0.55-1.30) Estimat Glomerular Filtration Rate > 60 mL/min (>60) > 60 mL/min (>60) Glucose Level 112 MG/DL (74-106) H 117 MG/DL (74-106) H Lactic Acid Level 1.60 mmol/L (0.4-2.0) Calcium Level 9.9 MG/DL (8.5-10.1) 9.7 MG/DL (8.5-10.1) Total Bilirubin 0.2 MG/DL (0.2-1.0) 0.3 MG/DL (0.2-1.0) Aspartate Amino Transf (AST/SGOT) 21 U/L (15-37) 17 U/L (15-37) Alanine Aminotransferase (ALT/SGPT) 32 U/L (12-78) 28 U/L (12-78) Alkaline Phosphatase 42 U/L (46-116) L 40 U/L (46-116) L Ammonia 22 umol/L (11-32) Total Protein 7.3 G/DL (6.4-8.2) 6.9 G/DL (6.4-8.2) Albumin 3.1 G/DL (3.4-5.0) L 3.0 G/DL (3.4-5.0) L Globulin 4.2 g/dL 3.9 g/dL Albumin/Globulin Ratio 0.7 (1.0-2.7) L 0.8 (1.0-2.7) L Salicylates Level 1.2 ug/mL (2.8-20) L Acetaminophen Level < 2 MCG/ML (10-30) L Serum Alcohol < 3 mg/dL Urine Color Yellow Urine Appearance Clear Urine pH 7 (4.5-8.0) Urine Specific [place] 1.005 (1.005-1.035) Urine Protein Negative (NEGATIVE) Urine Glucose (UA) Negative (NEGATIVE) Urine Ketones Negative (NEGATIVE) Urine Blood 1+ (NEGATIVE) H Urine Nitrite Negative (NEGATIVE) Urine Bilirubin Negative (NEGATIVE) Urine Urobilinogen 1 MG/DL (0.0-1.0) H Urine Leukocyte Esterase 3+ (NEGATIVE) H Urine RBC 2-4 /HPF (0 - 2) H Urine WBC 10-15 /HPF (0 - 2) H Urine Squamous Epithelial Cells Few /LPF (NONE/OCC) Urine Bacteria Few /HPF (NONE) Urine Opiates Screen Negative (NEGATIVE) Urine Barbiturates Screen Negative (NEGATIVE) Phencyclidine (PCP) Screen Negative (NEGATIVE) Urine Amphetamines Screen Negative (NEGATIVE) Urine Benzodiazepines Screen Negative (NEGATIVE) Urine Cocaine Screen Negative (NEGATIVE) Urine Marijuana (THC) Screen Negative (NEGATIVE) Hemoglobin A1c 6.2 % (4.3-6.0) H Uric Acid 3.9 MG/DL (2.6-7.2) Phosphorus Level 4.0 MG/DL (2.5-4.9) Magnesium Level 2.2 MG/DL (1.8-2.4) Vitamin B12 Level 973 PG/ML (193-986) Folate 57.1 NG/ML (8.6-58.9) Thyroid Stimulating Hormone (TSH) 1.999 uiU/mL (0.358-3.740) Height (Feet): 5 Height (Inches): 6.00 Weight (Pounds): 140 Medications Current Medications Medications (Trade) Dose Ordered Sig/Claritza Route PRN Reason Start Time Stop Time Status Last Admin Dose Admin Acetaminophen (Tylenol) 650 mg Q4H PRN GT For Pain 02/25/18 00:30 03/27/18 00:29 Amlodipine Besylate (Norvasc) 5 mg DAILY GT 02/25/18 09:00 03/27/18 08:59 02/25/18 09:15 Carvedilol (Coreg) 6.25 mg EVERY 12 HOURS GT 02/25/18 09:00 03/27/18 08:59 02/25/18 09:12 Ceftriaxone Sodium 1 gm/ Dextrose 55 ml @ 110 mls/hr DAILY IVPB 02/25/18 11:30 03/04/18 11:29 02/25/18 11:37 Escitalopram Oxalate (Lexapro) 10 mg DAILY GT 02/25/18 09:00 03/27/18 08:59 02/25/18 09:15 Lansoprazole (Prevacid) 30 mg DAILY GT 02/25/18 09:00 03/27/18 08:59 02/25/18 09:15 Multivitamins (Multivitamins W/ Minerals 15ml Liquid) 15 ml DAILY GT 02/25/18 09:00 03/27/18 08:59 02/25/18 09:11 Polyethylene Glycol (Miralax) 17 gm BEDTIME GT 02/25/18 21:00 03/27/18 20:59 Pravastatin Sodium (Pravachol) 80 mg BEDTIME GT 02/25/18 21:00 03/27/18 20:59 Risperidone (RisperDAL) 1 mg BID GT 02/25/18 09:00 03/27/18 08:59 02/25/18 09:12 Assessment/Plan Problem List: (1) Toxic encephalopathy ICD Codes: G92 - Toxic encephalopathy SNOMED: 71840410 Assessment/Plan decrease risperdal 1mg po qhs cont lexapro 10mg qhs cont depakote taper slowly the pt lacks capacity to make decisions. Ramon Duke MD Feb 25, 2018 12:53
--- NOTE | 2018-02-25 13:25 | NUR ---
ST NOTE: RECEIVED [facility] ORDER CHART REVIEWED. DISCUSSED WITH RN, JAKOB. PT HAS G-TUBE FEEDING AND PT IS AT HER PLOF. NO CHANGED OF CONDITIONS. NO SKILLED ST SERVICE IS REQUIRED AT THIS TIME. D/C [facility]. RN NOTIFIED.
--- NOTE | 2018-02-25 14:28 | NUR ---
RD ASSESSMENT & RECOMMENDATIONS SEE CARE ACTIVITY FOR COMPLETE ASSESSMENT DAILY ESTIMATED NEEDS: Needs based on pre-DM/ 55.5kg abw 25-30 kcals/kg 6899-7275 total kcals 1-1.2 g protein/kg 56-67 g total protein 25-30 mL/kg 2908-6079 total fluid mLs NUTRITION DIAGNOSIS: *Swallowing difficulty R/T dysphagia as evidenced by pt on GT feeding. *Altered nutrition related lab values R/T prediabetes as evidenced by elev A1C, increased from 6.0 on 11/11/17-> 6.2 on 02/25/18 CURRENT TF:Jevity 1.2 @35ml/hr x 24 hrs ENTERAL NUTRITION RECOMMENDATIONS: Glucerna 1.2 @ 50ml/hr x 24 hrs to provide 1200ml, 1440kcal, 72g prot, 966ml free water - Rec TF CHANGE to Glucerna 1.2 for glycemic control - Initiate Glucerna 1.2 @ 20ml/hr x 6 hrs, advance 10ml q 4-6 hrs as tolerated to goal rate - Flush per MD/ HOB over 30 degrees ADDITIONAL RECOMMENDATIONS: * Monitor lytes, replete as needed * Monitor BGs, need for hypoglycemic agent * Calibrated bedscale wt for accurate CBW . . . .
[2018-02-25 16:00] VITALS: BP 110/77
--- NOTE | 2018-02-25 17:07 | NUR ---
NO INSURANCE IN THE BAR UNABLE TO SEND CLINICALS AND REVIEWS/
--- NOTE | 2018-02-25 19:30 | NUR ---
NURSE NOTES: Report received from Kimberly Gore RN. Pt is resting in bed in stable condition. Pt is awake, alert, and oriented x2. Pt is on room air and breathing is even and unlabored. No acute distress noted. IV sites are noted to be asymptomatic, patent, and intact. G-tube site and dressing are dry and intact, TF Jevity 1.2 running at goal rate of 35cc/hr. No gastric residual noted. Mcdaniel is patent and draining to gravity. Bed is in lowest position with brake engaged, side rails up x3, and bed alarm on. Call light and side table are within reach. Family is at bedside. Will continue to monitor.
[2018-02-25 20:00] VITALS: BP 125/66
[2018-02-25] MEDS: Miralax 17gm pkt GT SCH (22:21)
--- NOTE | 2018-02-25 23:56 | NUR ---
NURSE NOTES: Family is requesting for PO diet for oral gratification. Pt is stating that she is hungry and wants a cheeseburger. Per family, they regularly feed her PO diet at [facility]. Also, family is requesting that pt be started on Valproic acid 500mg GT BID. MD Leggett notified. Per , okay to start pt on regular pureed w/ nectar thick liquids for oral gratification only and 1:1 feed only. Per , okay to continue depakote also. Orders noted and carried out.
[2018-02-26] VITALS: BP 137/65
--- NOTE | 2018-02-26 00:42 | Consultation ---
DATE OF CONSULTATION: 02/25/2018 INFECTIOUS DISEASES CONSULTATION REASON FOR CONSULTATION: UTI. HISTORY OF PRESENT ILLNESS: This is a 72-year-old female admitted from a custodial, altered mental status. Also she had weakness, vomiting, dysuria. The patient is a very poor historian because of dementia. PAST MEDICAL HISTORY: Significant for rapidly progressive dementia since last summer, extensive workup in hospital are negative for encephalitis, hypertension, hyperlipidemia, has dysphagia, status post G-tube placement. ALLERGIES: Allergic to iodine. MEDICATIONS: Getting MiraLAX, Pravachol, ceftriaxone, Prevacid, Lexapro, multivitamin, Risperdal, amlodipine, carvedilol, Tylenol. SOCIAL HISTORY: . No history of alcohol, drug abuse, or smoking. REVIEW OF SYSTEMS: Unobtainable. PHYSICAL EXAMINATION: VITAL SIGNS: Maximum temperature of 99.9. Current temperature 97.3, pulse 80, blood pressure 116/68. GENERAL APPEARANCE: No acute distress. HEAD AND NECK: Supreme conjunctiva. HEART: Normal rate. LUNGS: Clear. ABDOMEN: Soft and nontender. EXTREMITIES: No edema. NEUROLOGIC: Opens eyes. Not very communicative at present time. LABORATORY AND DIAGNOSTIC DATA: WBC 7.1, hemoglobin 12.7, hematocrit 38, platelet 204. Sodium 140, potassium 4.2, chloride 106, bicarb 23, BUN 11, creatinine 0.6. Hemoglobin A1c 6.2. The patient had a chest x-ray that was negative. CT scan of the head showed mild atrophy. UA showed WBC of 10 to 15, leukocyte esterase 2+, nitrite negative. Urine toxicology test was negative. IMPRESSION: Altered mental status may be secondary to the urinary tract infection. The patient has mild pyuria. The patient has dementia, hyperlipidemia, hypertension. He is status post G-tube placement. RECOMMENDATION: We will continue with Rocephin. We will follow up the cultures. At the end of my exam, I thank Dr. Leggett for involving me in the care of this patient. Kevon Thurston M.D. DR: Ian JOB#: [id number] CC:
[2018-02-26 04:00] VITALS: BP 143/80
--- NOTE | 2018-02-26 07:22 | NUR ---
HAND-OFF: Report given to GUANACO Iqbal. Pt is resting in bed in stable condition. No acute distress noted. Endorsed plan of care.
--- NOTE | 2018-02-26 07:32 | NUR ---
NURSE NOTES: Received report from GUANACO No. Pt is sleeping in bed with no distress noted. Bed is in lowest position, side rails up X2, and call light is within reach. Will continue to monitor.
[2018-02-26 08:00] VITALS: BP 154/77
[2018-02-26] MEDS: Valproic Acid 250mg/5ml Liquid GT SCH ×2 (08:29→22:00)
[2018-02-26] MEDS: Multivitamins W/Minerals 15 ML UDC GT SCH (08:29)
[2018-02-26] MEDS: cefTRIAXone 1 GM in D5W 55 ML IVPB SCH (08:29)
[2018-02-26] MEDS: Carvedilol 6.25mg Tab GT SCH ×2 (08:30→21:00)
--- NOTE | 2018-02-26 09:26 | NUR ---
ST NOTE: BEDSIDE SWALLOW EVAL RECEIVED BEDSIDE SWALLOW EVAL PER RN, PT IS MORE RESPONSIVE AND PT'S FAMILY WANTS PT TO EAT/DRINK BY MOUTH; PT WAS ON [facility] SOFT WITH THIN LIQUIDS DIET AT [facility]. CHART REVIEWED PRIOR THE EVALUATION PT IS A 72-YEAR-OLD FEMALE WHO WAS ADMITTED DUE TO ENCEPHALOPATHY. DYSPHAGIA RISK FACTORS: RAPID ALZHEIMER'S DEMENTIA, GERD, HTN, H/O DYSPHAGIA, ENCEPHALOPATHY, DEPRESSIVE DISORDER, PER CXR: NO ACUTE DISEASE. PER CT HEAD: MILD ATROPHY OF THE BRAIN. PLOF: PT RESIDES AT [facility]. PER CHART, PT IS ON G-TUBE FEEDING ALONG WITH PUREE WITH NECTAR THICK LIQUIDS DIET AND CHANGED TO MECH SOFT FAZAL WITH THIN LIQUIDS ON 12/31/17 ORAL GRATIFICATION. PER PT'S POLST: FULL CODE, OKAY TO LONG-TERM ARTIFICIAL NUTRITION, INCLUDING FEEDING TUBES. CURRENT STATUS: PT SEEN AT BEDSIDE IN AM. AWAKE WITH MAX CUES, ORIENT X 1, FOLLOWS DIRECTIONS INCONSISTENTLY. GIVEN PO TRAILS: THIN(CUP-SMALL SIPS), NECTAR THICK(TSP), PUREE(TSP) INITIAL IMPRESSION: PROBABLE MILD OR WORSENED OROPHARYNGEAL DYSPHAGIA GOOD DENTITION MILD INCREASED ORAL TRANSIT TIME AND OROPHARYNGEAL TRANSIT TIME GOOD LARYNGEAL ELEVATION, NO OVERT S/S OF ASPIRATION. PT HAS RISK FOR (SILENT)ASPIRATION COMPOUNDED OF COGNITIVE IMPAIRMENT. RECOMMENDATIONS: 1. CONTINUE LONG-TERM NONORAL FEEDING PRIMARILY NUTRITION AND HYDRATION NEEDS. 2. PO SHOULD BE GIVEN FOR QUALITY OF LIFE, CONTINUE MOIST PUREE WITH NECTAR THICK LIQUIDS(SMALL PORTION) ORAL GRATIFICATION (FEED PT ONLY WHEN ALERT). 3. VIDEOSWALLOW STUDY IP OR OP TO R/O ANY SILENT ASPIRATION RISK. D/W RN. POSTED ASPIRATION/REFLUX ASPIRATION SIGN.
--- NOTE | 2018-02-26 11:42 | NUR ---
CASE MANAGEMENT:REVIEW 02/26/18 SI: ACUTE ENCEPHALOPATHY D/T UTI 98.6 77 18 154/77 97% ON RA IS: VALPROIC GT Q12 IV ROCEPHIN QD LEXAPRO GT QD RISPERDAL GT BID NORVASC GT QD COREG GT Q12 : TELEMETRY STATUS PLAN: SWALLOW EVAL
[2018-02-26 11:57] VITALS: BP 100/58
--- NOTE | 2018-02-26 12:20 | NUR ---
NURSE NOTES: Patient is sitting up in bed sleeping. Attempts to feed her were unsuccessful as she will not swallow her food at this time. Will continue to monitor.
--- NOTE | 2018-02-26 13:18 | Nephrology Progress Note ---
Assessment/Plan Problem List: (1) UTI (urinary tract infection) (2) Encephalopathy (3) HTN (hypertension) (4) Diabetes mellitus Assessment UTI h/o rapidly progressive dementia, ? Encephalitis mild HTN PEG mild elevation of A1c Plan Urine cultures antibiotics watch lytes adjust psychotropics per psych ! down to norvasc per orders Subjective ROS Limited/Unobtainable: No Constitutional: Reports: other - non verbal Objective Objective Last 24 Hour Vital Signs Date Time Temp Pulse Resp B/P (MAP) Pulse Ox O2 Delivery O2 Flow Rate FiO2 02/26/18 12:00 61 02/26/18 11:57 98.7 61 18 100/58 (72) 97 02/26/18 09:00 Room Air 02/26/18 08:30 77 154/77 02/26/18 08:30 77 154/77 02/26/18 08:00 98.6 77 18 154/77 (102) 97 02/26/18 08:00 76 02/26/18 04:00 97.2 64 17 143/80 (101) 96 02/26/18 04:00 78 02/26/18 00:00 73 02/26/18 00:00 97.7 66 18 137/65 (89) 96 02/25/18 22:21 68 125/85 02/25/18 21:00 Room Air 02/25/18 20:00 75 02/25/18 20:00 97.9 72 16 125/66 (85) 97 02/25/18 16:00 98.8 71 22 110/77 (88) 97 02/25/18 16:00 67 Intake and Output 02/25/18 02/26/18 19:00 07:00 Intake Total 70 ml Output Total 400 ml 400 ml Balance -330 ml -400 ml Tube Feeding 70 ml Output Urine Total 400 ml 400 ml Height (Feet): 5 Height (Inches): 6.00 Weight (Pounds): 140 General Appearance: no apparent distress, other - non verbal Cardiovascular: normal rate Respiratory/Chest: lungs clear Abdomen: soft Neurologic: other Nahum Connolly MD Feb 26, 2018 13:18
--- NOTE | 2018-02-26 13:39 | Infectious Diseases Prog Note ---
Assessment/Plan Assessment/Plan A; Pyuria, urine culture negative so far AMS VRE colonization Dementia, P; continue Rocephin will f/u cultures Subjective ROS Limited/Unobtainable: Yes Constitutional: Reports: no symptoms Allergies: Coded Allergies: IODINE (Verified Allergy, Unknown, 11/10/17) Objective Vital Signs Last 24 Hour Vital Signs Date Time Temp Pulse Resp B/P (MAP) Pulse Ox O2 Delivery O2 Flow Rate FiO2 02/26/18 12:00 61 02/26/18 11:57 98.7 61 18 100/58 (72) 97 02/26/18 09:00 Room Air 02/26/18 08:30 77 154/77 02/26/18 08:30 77 154/77 02/26/18 08:00 98.6 77 18 154/77 (102) 97 02/26/18 08:00 76 02/26/18 04:00 97.2 64 17 143/80 (101) 96 02/26/18 04:00 78 02/26/18 00:00 73 02/26/18 00:00 97.7 66 18 137/65 (89) 96 02/25/18 22:21 68 125/85 02/25/18 21:00 Room Air 02/25/18 20:00 75 02/25/18 20:00 97.9 72 16 125/66 (85) 97 02/25/18 16:00 98.8 71 22 110/77 (88) 97 02/25/18 16:00 67 Height (Feet): 5 Height (Inches): 6.00 Weight (Pounds): 140 General Appearance: no acute distress HEENT: mucous membranes moist Respiratory/Chest: lungs clear Cardiovascular: normal rate Abdomen: soft, non tender, other - GT feeding Skin: no rash Neurologic/Psychiatric: other - sleeping Microbiology Date/Time Source Procedure Growth Status 02/24/18 14:35 Blood Blood Culture - Preliminary NO GROWTH AFTER 24 HOURS Resulted 02/24/18 14:35 Blood Blood Culture - Preliminary NO GROWTH AFTER 24 HOURS Resulted 02/24/18 15:30 Nasal Nares MRSA Culture - Final NO METHICILLIN RESISTANT STAPH AUREUS... Complete 02/25/18 11:45 Indwelling Cath Urine Culture - Preliminary NO GROWTH Resulted 02/24/18 15:28 Urine,Clean Catch Urine Culture - Preliminary NO GROWTH AFTER 24 HOURS Resulted 02/24/18 15:30 Rectum VRE Culture - Final Enterococcus Faecalis - Vre Resulted 02/24/18 15:30 Rectum Pending Resulted Current Medications Medications (Trade) Dose Ordered Sig/Claritza Route PRN Reason Start Time Stop Time Status Last Admin Dose Admin Acetaminophen (Tylenol) 650 mg Q4H PRN GT For Pain 02/25/18 00:30 03/27/18 00:29 Amlodipine Besylate (Norvasc) 2.5 mg DAILY GT 02/27/18 09:00 03/29/18 08:59 Carvedilol (Coreg) 6.25 mg EVERY 12 HOURS GT 02/25/18 09:00 03/27/18 08:59 02/26/18 08:30 Ceftriaxone Sodium 1 gm/ Dextrose 55 ml @ 110 mls/hr DAILY IVPB 02/25/18 11:30 03/04/18 11:29 02/26/18 08:29 Escitalopram Oxalate (Lexapro) 10 mg DAILY GT 02/25/18 09:00 03/27/18 08:59 02/26/18 08:29 Lansoprazole (Prevacid) 30 mg DAILY GT 02/25/18 09:00 03/27/18 08:59 02/26/18 08:30 Multivitamins (Multivitamins W/ Minerals 15ml Liquid) 15 ml DAILY GT 02/25/18 09:00 03/27/18 08:59 02/26/18 08:29 Polyethylene Glycol (Miralax) 17 gm BEDTIME GT 02/25/18 21:00 03/27/18 20:59 02/25/18 22:21 Pravastatin Sodium (Pravachol) 80 mg BEDTIME GT 02/25/18 21:00 03/27/18 20:59 02/25/18 22:21 Risperidone (RisperDAL) 1 mg BID GT 02/25/18 09:00 03/27/18 08:59 02/26/18 08:30 Valproic Acid (Depakene) 500 mg EVERY 12 HOURS GT 02/26/18 09:00 03/28/18 08:59 02/26/18 08:29 Kevon Thurston MD Feb 26, 2018 13:39
[2018-02-26 16:00] VITALS: BP 102/63
--- NOTE | 2018-02-26 16:20 | NUR ---
INSURANCE ALL CLINICALS AND REVIEWS FAXED TO: MACRINA TRAVIS/LACEY BILLS:ALICIA F:[phone]
--- NOTE | 2018-02-26 19:34 | NUR ---
NURSE NOTES: Received pt. and report from GUANACO Iqbal. Observed pt. asleep in bed with family member at bedside. wheel truer is in placed, IV site is intact, asymptomatic, and patent. Pt. has GT feeding; Gevity 1.2 @ 35cc/hr; goal is 40cc/hr. Bed is in the lowest position and locked. Call light within reach. No acute distress noted at this time. Will continue plan of care. Addendum: 02/27/18 at 0525 by Zaynab Prajapati Mai, RN Glucernia 1.5 @ 35cc/hr continuous; goal is 40cc/hr
--- NOTE | 2018-02-26 19:43 | NUR ---
HAND-OFF: Report given to GUANACO [place]. Plan of care endorsed. Pt is stable.
[2018-02-26 20:00] VITALS: BP 107/58
[2018-02-26] MEDS ORDERED: Tubing IV Secondary IV ONE (20:19)
[2018-02-26] MEDS ORDERED: NS 275ml ONE (20:19)
--- NOTE | 2018-02-26 21:15 | NUR ---
NURSE NOTES: Held Coreg at 2100. Patient's HR was at 60 bpm.
[2018-02-26] MEDS: Miralax 17gm pkt GT SCH (22:01)
--- NOTE | 2018-02-26 22:04 | General Progress Note ---
Assessment/Plan Problem List: (1) Toxic encephalopathy ICD Codes: G92 - Toxic encephalopathy SNOMED: 65142055 Status: stable Assessment/Plan risperdal 1mg po qhs cont lexapro 10mg qhs cont depakote the pt lacks capacity to make decisions. Subjective Neurologic/Psychiatric: Reports: anxiety, depressed Allergies: Coded Allergies: IODINE (Verified Allergy, Unknown, 11/10/17) Subjective I have been following the pt at sniff. the pt is withdrawn and unable to communicate. the pt in min talkative. the pt needs assistance at sniff improved slightly however declining. all tests have been normal Objective Last 24 Hour Vital Signs Date Time Temp Pulse Resp B/P (MAP) Pulse Ox O2 Delivery O2 Flow Rate FiO2 02/26/18 16:00 99.0 81 20 102/63 (76) 95 02/26/18 16:00 78 02/26/18 12:00 61 02/26/18 11:57 98.7 61 18 100/58 (72) 97 02/26/18 09:00 Room Air 02/26/18 08:30 77 154/77 02/26/18 08:30 77 154/77 02/26/18 08:00 98.6 77 18 154/77 (102) 97 02/26/18 08:00 76 02/26/18 04:00 97.2 64 17 143/80 (101) 96 02/26/18 04:00 78 02/26/18 00:00 73 02/26/18 00:00 97.7 66 18 137/65 (89) 96 02/25/18 22:21 68 125/85 Intake and Output 02/25/18 02/26/18 18:59 06:59 Intake Total 70 ml Output Total 400 ml 400 ml Balance -330 ml -400 ml Tube Feeding 70 ml Output Urine Total 400 ml 400 ml Height (Feet): 5 Height (Inches): 6.00 Weight (Pounds): 140 General Appearance: alert, confused, agitated Ramon Duke MD Feb 26, 2018 22:04
--- NOTE | 2018-02-26 22:28 | General Progress Note ---
Assessment/Plan Problem List: (1) Encephalopathy ICD Codes: G93.40 - Encephalopathy SNOMED: 04668744 (2) Constipation ICD Codes: K59.00 - Constipation, unspecified SNOMED: 41497112 (3) Altered level of consciousness ICD Codes: R40.4 - Transient alteration of awareness SNOMED: 4408524 (4) HTN (hypertension) ICD Codes: I10 - Essential (primary) hypertension SNOMED: 69364133 (5) Diabetes mellitus ICD Codes: E11.9 - Type 2 diabetes mellitus without complications SNOMED: 39551463 (6) UTI (urinary tract infection) ICD Codes: N39.0 - Urinary tract infection, site not specified SNOMED: 40631695 Qualifiers: Qualified Codes: N39.0 - Urinary tract infection, site not specified (7) Episode of generalized weakness ICD Codes: R53.1 - Weakness SNOMED: 98312537 Status: progressing Assessment/Plan afebrile more alert ams uti is improving abx per id Subjective ROS Limited/Unobtainable: Yes Allergies: Coded Allergies: IODINE (Verified Allergy, Unknown, 11/10/17) Objective Last 24 Hour Vital Signs Date Time Temp Pulse Resp B/P (MAP) Pulse Ox O2 Delivery O2 Flow Rate FiO2 02/26/18 21:00 60 107/58 02/26/18 16:00 99.0 81 20 102/63 (76) 95 02/26/18 16:00 78 02/26/18 12:00 61 02/26/18 11:57 98.7 61 18 100/58 (72) 97 02/26/18 09:00 Room Air 02/26/18 08:30 77 154/77 02/26/18 08:30 77 154/77 02/26/18 08:00 98.6 77 18 154/77 (102) 97 02/26/18 08:00 76 02/26/18 04:00 97.2 64 17 143/80 (101) 96 02/26/18 04:00 78 02/26/18 00:00 73 02/26/18 00:00 97.7 66 18 137/65 (89) 96 Intake and Output 02/25/18 02/26/18 18:59 06:59 Intake Total 70 ml Output Total 400 ml 400 ml Balance -330 ml -400 ml Tube Feeding 70 ml Output Urine Total 400 ml 400 ml Height (Feet): 5 Height (Inches): 6.00 Weight (Pounds): 140 General Appearance: confused Neck: supple Cardiovascular: normal rate Respiratory/Chest: lungs clear Sampson Leggett MD Feb 26, 2018 22:28
[2018-02-27] VITALS: BP 122/58
[2018-02-27 04:00] VITALS: BP 107/46
[2018-02-27 05:39] LABS: HEMATOCRIT 36.4 % (37.0-47.0); HEMOGLOBIN 12.1 G/DL (12.0-16.0); LYMPHOCYTES % (AUTO) 26.9 % (20.0-45.0); MEAN CORPUSCULAR VOLUME 89 FL (80-99); MONOCYTES % (AUTO) 9.8 % (1.0-10.0); NEUTROPHILS % (AUTO) 60.4 % (45.0-75.0); PLATELET COUNT 196 K/UL (150-450); RED BLOOD COUNT 4.11 M/UL (4.20-5.40); WHITE BLOOD COUNT 7.5 K/UL (4.8-10.8)
[2018-02-27 06:00] LABS: ALANINE AMINOTRANSFERASE 27 U/L (12-78); ALBUMIN 2.8 G/DL (3.4-5.0); ALBUMIN/GLOBULIN RATIO 0.7 (1.0-2.7); ALKALINE PHOSPHATASE 35 U/L (46-116); ANION GAP 8 mmol/L (5-15); ASPARTATE AMINO TRANSFERASE 16 U/L (15-37); BILIRUBIN,TOTAL 0.3 MG/DL (0.2-1.0); BLOOD UREA NITROGEN 20 mg/dL (7-18); CALCIUM 9.5 MG/DL (8.5-10.1); CARBON DIOXIDE 27 MMOL/L (21-32); CHLORIDE 107 MMOL/L (98-107); CHOLESTEROL 135 MG/DL (< 200); CREATININE 0.8 MG/DL (0.55-1.30); HDL CHOLESTEROL 60 MG/DL (40-60); SODIUM 142 MMOL/L (136-145); TRIGLYCERIDES 87 MG/DL (30-150)
--- NOTE | 2018-02-27 07:15 | NUR ---
HAND-OFF: Report given to GUANACO Garcia. Pt. is in stable condition. Plan of care endorsed.
--- NOTE | 2018-02-27 07:20 | NUR ---
NURSE NOTES: RECEIVED PATIENT FROM Rufus POLK RN. PATIENT IS LYING IN BED, RESTING. ABLE TO OPEN EYES. HOOKED TO STALLION KEEPER. ON ROOM AIR. NO SIGNS OF CARDIO OR RESPI DISTRESS OF THE MOMENT. GT IN PLACE, WITH GTF GLUCERNA 1.5 AT 35CC/HR. MARQUEZ FOR RETENTION, CONNECTED TO BAG, PATENT AND DRAINING URINE. IV'S ON R AC G20, AND R WRIST G18, SL. BED AT LOWEST POSITION. SIDE RAILS UP. CALL LIGHT WITHIN REACH. WILL CONTINUE TO MONITOR.
[2018-02-27 08:00] VITALS: BP 144/55
[2018-02-27] MEDS: Multivitamins W/Minerals 15 ML UDC GT SCH (08:47)
[2018-02-27] MEDS: Valproic Acid 250mg/5ml Liquid GT SCH ×2 (08:47→21:19)
[2018-02-27] MEDS: Carvedilol 6.25mg Tab GT SCH ×2 (08:48→21:21)
[2018-02-27] MEDS: cefTRIAXone 1 GM in D5W 55 ML IVPB SCH (08:54)
--- NOTE | 2018-02-27 11:23 | Infectious Diseases Prog Note ---
Assessment/Plan Assessment/Plan antibiotics : ceftriaxone A 1. UTI 2. dementia 3. rectal VRE colonization 4. diabetes mellitus P 1. continue ceftriaxone 2. will follow up cultures Subjective ROS Limited/Unobtainable: Yes Allergies: Coded Allergies: IODINE (Verified Allergy, Unknown, 11/10/17) Objective Vital Signs Last 24 Hour Vital Signs Date Time Temp Pulse Resp B/P (MAP) Pulse Ox O2 Delivery O2 Flow Rate FiO2 02/27/18 09:00 Room Air 02/27/18 08:48 72 144/55 02/27/18 08:47 72 144/55 02/27/18 08:00 73 02/27/18 08:00 97.0 72 18 144/55 (84) 99 02/27/18 04:00 98.2 68 20 107/46 (66) 97 02/27/18 04:00 63 02/27/18 00:00 63 02/27/18 00:00 97.5 63 20 122/58 (79) 98 02/26/18 21:00 60 107/58 02/26/18 21:00 Room Air 02/26/18 20:00 99.5 60 20 107/58 (74) 94 02/26/18 20:00 66 02/26/18 16:00 99.0 81 20 102/63 (76) 95 02/26/18 16:00 78 02/26/18 12:00 61 02/26/18 11:57 98.7 61 18 100/58 (72) 97 Height (Feet): 5 Height (Inches): 6.00 Weight (Pounds): 140 Respiratory/Chest: lungs clear Cardiovascular: normal rate, regular rhythm, no gallop/murmur Abdomen: soft, non tender, other - GT Extremities: no edema Microbiology Date/Time Source Procedure Growth Status 02/24/18 14:35 Blood Blood Culture - Preliminary NO GROWTH AFTER 48 HOURS Resulted 02/24/18 14:35 Blood Blood Culture - Preliminary NO GROWTH AFTER 48 HOURS Resulted 02/24/18 15:30 Nasal Nares MRSA Culture - Final NO METHICILLIN RESISTANT STAPH AUREUS... Complete 02/25/18 11:45 Indwelling Cath Urine Culture - Final NO GROWTH AFTER 48 HOURS Complete 02/24/18 15:28 Urine,Clean Catch Urine Culture - Final NO GROWTH AFTER 48 HOURS Complete 02/24/18 15:30 Rectum VRE Culture - Final Enterococcus Faecalis - Vre Complete 02/24/18 15:30 Rectum - Final NO CARBAPENEM-RESISTANT ENTEROBACTERI... Complete Laboratory Tests Test 02/27/18 04:45 White Blood Count 7.5 K/UL (4.8-10.8) Red Blood Count 4.11 M/UL (4.20-5.40) L Hemoglobin 12.1 G/DL (12.0-16.0) Hematocrit 36.4 % (37.0-47.0) L Mean Corpuscular Volume 89 FL (80-99) Mean Corpuscular Hemoglobin 29.3 PG (27.0-31.0) Mean Corpuscular Hemoglobin Concent 33.2 G/DL (32.0-36.0) Red Cell Distribution Width 14.0 % (11.6-14.8) Platelet Count 196 K/UL (150-450) Mean Platelet Volume 7.9 FL (6.5-10.1) Neutrophils (%) (Auto) 60.4 % (45.0-75.0) Lymphocytes (%) (Auto) 26.9 % (20.0-45.0) Monocytes (%) (Auto) 9.8 % (1.0-10.0) Eosinophils (%) (Auto) 2.0 % (0.0-3.0) Basophils (%) (Auto) 1.0 % (0.0-2.0) Sodium Level 142 MMOL/L (136-145) Potassium Level 4.0 MMOL/L (3.5-5.1) Chloride Level 107 MMOL/L (98-107) Carbon Dioxide Level 27 MMOL/L (21-32) Anion Gap 8 mmol/L (5-15) Blood Urea Nitrogen 20 mg/dL (7-18) H Creatinine 0.8 MG/DL (0.55-1.30) Estimat Glomerular Filtration Rate > 60 mL/min (>60) Glucose Level 113 MG/DL (74-106) H Uric Acid 4.4 MG/DL (2.6-7.2) Calcium Level 9.5 MG/DL (8.5-10.1) Phosphorus Level 4.0 MG/DL (2.5-4.9) Magnesium Level 2.3 MG/DL (1.8-2.4) Total Bilirubin 0.3 MG/DL (0.2-1.0) Aspartate Amino Transf (AST/SGOT) 16 U/L (15-37) Alanine Aminotransferase (ALT/SGPT) 27 U/L (12-78) Alkaline Phosphatase 35 U/L (46-116) L Total Protein 6.7 G/DL (6.4-8.2) Albumin 2.8 G/DL (3.4-5.0) L Globulin 3.9 g/dL Albumin/Globulin Ratio 0.7 (1.0-2.7) L Triglycerides Level 87 MG/DL (30-150) Cholesterol Level 135 MG/DL (< 200) LDL Cholesterol 69 mg/dL (<100) HDL Cholesterol 60 MG/DL (40-60) Cholesterol/HDL Ratio 2.3 (3.3-4.4) L Valproic Acid (Depakene) Level 56 MCG/ML (50-100) Current Medications Medications (Trade) Dose Ordered Sig/Claritza Route PRN Reason Start Time Stop Time Status Last Admin Dose Admin Acetaminophen (Tylenol) 650 mg Q4H PRN GT For Pain 02/25/18 00:30 03/27/18 00:29 Amlodipine Besylate (Norvasc) 2.5 mg DAILY GT 02/27/18 09:00 03/29/18 08:59 02/27/18 08:47 Carvedilol (Coreg) 6.25 mg EVERY 12 HOURS GT 02/25/18 09:00 03/27/18 08:59 02/27/18 08:48 Ceftriaxone Sodium 1 gm/ Dextrose 55 ml @ 110 mls/hr DAILY IVPB 02/25/18 11:30 03/04/18 11:29 02/27/18 08:54 Escitalopram Oxalate (Lexapro) 10 mg DAILY GT 02/25/18 09:00 03/27/18 08:59 02/27/18 08:47 Lansoprazole (Prevacid) 30 mg DAILY GT 02/25/18 09:00 03/27/18 08:59 02/27/18 08:47 Multivitamins (Multivitamins W/ Minerals 15ml Liquid) 15 ml DAILY GT 02/25/18 09:00 03/27/18 08:59 02/27/18 08:47 Polyethylene Glycol (Miralax) 17 gm BEDTIME GT 02/25/18 21:00 03/27/18 20:59 02/26/18 22:01 Pravastatin Sodium (Pravachol) 80 mg BEDTIME GT 02/25/18 21:00 03/27/18 20:59 02/26/18 22:01 Risperidone (RisperDAL) 1 mg BID GT 02/25/18 09:00 03/27/18 08:59 02/27/18 08:47 Valproic Acid (Depakene) 500 mg EVERY 12 HOURS GT 02/26/18 09:00 03/28/18 08:59 02/27/18 08:47 Radha Dunham MD Feb 27, 2018 11:23
[2018-02-27 12:00] VITALS: BP 113/59
--- NOTE | 2018-02-27 14:21 | Nephrology Progress Note ---
Assessment/Plan Problem List: (1) UTI (urinary tract infection) (2) Encephalopathy (3) HTN (hypertension) (4) Diabetes mellitus Assessment UTI h/o rapidly progressive dementia, ? Encephalitis mild HTN PEG mild elevation of A1c Plan Urine cultures antibiotics watch lytes adjust psychotropics per psych ! down to norvasc per orders not much to add from renal stand Subjective ROS Limited/Unobtainable: No Constitutional: Reports: malaise Objective Objective Last 24 Hour Vital Signs Date Time Temp Pulse Resp B/P (MAP) Pulse Ox O2 Delivery O2 Flow Rate FiO2 02/27/18 12:00 97.0 69 18 113/59 (77) 99 02/27/18 12:00 60 02/27/18 09:00 Room Air 02/27/18 08:48 72 144/55 02/27/18 08:47 72 144/55 02/27/18 08:00 73 02/27/18 08:00 97.0 72 18 144/55 (84) 99 02/27/18 04:00 98.2 68 20 107/46 (66) 97 02/27/18 04:00 63 02/27/18 00:00 63 02/27/18 00:00 97.5 63 20 122/58 (79) 98 02/26/18 21:00 60 107/58 02/26/18 21:00 Room Air 02/26/18 20:00 99.5 60 20 107/58 (74) 94 02/26/18 20:00 66 02/26/18 16:00 99.0 81 20 102/63 (76) 95 02/26/18 16:00 78 Intake and Output 02/26/18 02/27/18 19:00 07:00 Intake Total 510 ml 40 ml Output Total 300 ml 200 ml Balance 210 ml -160 ml Intake Free Water 50 ml IV Total 110 ml Tube Feeding 350 ml 40 ml Output Urine Total 300 ml 200 ml # Voids 2 # Bowel Movements 1 1 Laboratory Tests 02/27/18 04:45: White Blood Count 7.5, Red Blood Count 4.11L, Hemoglobin 12.1, Hematocrit 36.4L , Mean Corpuscular Volume 89, Mean Corpuscular Hemoglobin 29.3, Mean Corpuscular Hemoglobin Concent 33.2, Red Cell Distribution Width 14.0, Platelet Count 196, Mean Platelet Volume 7.9, Neutrophils (%) (Auto) 60.4, Lymphocytes (% ) (Auto) 26.9, Monocytes (%) (Auto) 9.8, Eosinophils (%) (Auto) 2.0, Basophils ( %) (Auto) 1.0, Sodium Level 142, Potassium Level 4.0, Chloride Level 107, Carbon Dioxide Level 27, Anion Gap 8, Blood Urea Nitrogen 20H, Creatinine 0.8, Estimat Glomerular Filtration Rate > 60, Glucose Level 113H, Uric Acid 4.4, Calcium Level 9.5, Phosphorus Level 4.0, Magnesium Level 2.3, Total Bilirubin 0.3, Aspartate Amino Transf (AST/SGOT) 16, Alanine Aminotransferase (ALT/SGPT) 27, Alkaline Phosphatase 35L, Total Protein 6.7, Albumin 2.8L, Globulin 3.9, Albumin/Globulin Ratio 0.7L, Triglycerides Level 87, Cholesterol Level 135, LDL Cholesterol 69, HDL Cholesterol 60, Cholesterol/HDL Ratio 2.3L, Valproic Acid ( Depakene) Level 56 Height (Feet): 5 Height (Inches): 6.00 Weight (Pounds): 140 General Appearance: no apparent distress Cardiovascular: normal rate Respiratory/Chest: lungs clear Abdomen: soft Nahum Connolly MD Feb 27, 2018 14:21
[2018-02-27 16:00] VITALS: BP 141/71
--- NOTE | 2018-02-27 17:20 | NUR ---
NURSE NOTES: PATIENT KEPT CLEAN AND DRY. REPOSITIONED PATIENT. WILL CONTINUE TO MONITOR.
--- NOTE | 2018-02-27 19:05 | NUR ---
NURSE NOTES: Received pt. and report from GUANACO Garcia. Observe pt. asleep in bed with family members at bedside. pvc monitor is in placed, IV site is intact, asymptomatic and patent. Bed is in the lowest position and locked, HOB is at 30 degrees, Pt. is on Glucerna 1.5 @ 40cc/hr, aspiration precaution noted, call light within reach. No acute distress noted at this time. Will continue plan of care.
--- NOTE | 2018-02-27 19:10 | NUR ---
HAND-OFF: Report given to Rufus Fallon RN.
[2018-02-27 20:00] VITALS: BP 147/63
[2018-02-27] MEDS: Miralax 17gm pkt GT SCH (21:18)
--- NOTE | 2018-02-27 23:11 | General Progress Note ---
Assessment/Plan Problem List: (1) Encephalopathy ICD Codes: G93.40 - Encephalopathy SNOMED: 37635155 (2) Constipation ICD Codes: K59.00 - Constipation, unspecified SNOMED: 24149122 (3) Altered level of consciousness ICD Codes: R40.4 - Transient alteration of awareness SNOMED: 9416950 (4) HTN (hypertension) ICD Codes: I10 - Essential (primary) hypertension SNOMED: 67480463 (5) Diabetes mellitus ICD Codes: E11.9 - Type 2 diabetes mellitus without complications SNOMED: 03440011 (6) UTI (urinary tract infection) ICD Codes: N39.0 - Urinary tract infection, site not specified SNOMED: 77789406 Qualifiers: Qualified Codes: N39.0 - Urinary tract infection, site not specified (7) Episode of generalized weakness ICD Codes: R53.1 - Weakness SNOMED: 10956672 Status: progressing Assessment/Plan improving ams due to uti more alert ams uti is improving abx per id Subjective ROS Limited/Unobtainable: Yes Allergies: Coded Allergies: IODINE (Verified Allergy, Unknown, 11/10/17) Objective Last 24 Hour Vital Signs Date Time Temp Pulse Resp B/P (MAP) Pulse Ox O2 Delivery O2 Flow Rate FiO2 02/27/18 21:21 74 147/63 02/27/18 20:00 97.7 74 18 147/63 (91) 97 02/27/18 16:00 97.8 74 20 141/71 (94) 98 02/27/18 16:00 71 02/27/18 12:00 97.0 69 18 113/59 (77) 99 02/27/18 12:00 60 02/27/18 09:00 Room Air 02/27/18 08:48 72 144/55 02/27/18 08:47 72 144/55 02/27/18 08:00 73 02/27/18 08:00 97.0 72 18 144/55 (84) 99 02/27/18 04:00 98.2 68 20 107/46 (66) 97 02/27/18 04:00 63 02/27/18 00:00 63 02/27/18 00:00 97.5 63 20 122/58 (79) 98 Intake and Output 02/26/18 02/27/18 19:00 07:00 Intake Total 510 ml 40 ml Output Total 300 ml 200 ml Balance 210 ml -160 ml Intake Free Water 50 ml IV Total 110 ml Tube Feeding 350 ml 40 ml Output Urine Total 300 ml 200 ml # Voids 2 # Bowel Movements 1 1 Laboratory Tests 02/27/18 04:45: White Blood Count 7.5, Red Blood Count 4.11L, Hemoglobin 12.1, Hematocrit 36.4L , Mean Corpuscular Volume 89, Mean Corpuscular Hemoglobin 29.3, Mean Corpuscular Hemoglobin Concent 33.2, Red Cell Distribution Width 14.0, Platelet Count 196, Mean Platelet Volume 7.9, Neutrophils (%) (Auto) 60.4, Lymphocytes (% ) (Auto) 26.9, Monocytes (%) (Auto) 9.8, Eosinophils (%) (Auto) 2.0, Basophils ( %) (Auto) 1.0, Sodium Level 142, Potassium Level 4.0, Chloride Level 107, Carbon Dioxide Level 27, Anion Gap 8, Blood Urea Nitrogen 20H, Creatinine 0.8, Estimat Glomerular Filtration Rate > 60, Glucose Level 113H, Uric Acid 4.4, Calcium Level 9.5, Phosphorus Level 4.0, Magnesium Level 2.3, Total Bilirubin 0.3, Aspartate Amino Transf (AST/SGOT) 16, Alanine Aminotransferase (ALT/SGPT) 27, Alkaline Phosphatase 35L, Total Protein 6.7, Albumin 2.8L, Globulin 3.9, Albumin/Globulin Ratio 0.7L, Triglycerides Level 87, Cholesterol Level 135, LDL Cholesterol 69, HDL Cholesterol 60, Cholesterol/HDL Ratio 2.3L, Valproic Acid ( Depakene) Level 56 Height (Feet): 5 Height (Inches): 6.00 Weight (Pounds): 140 General Appearance: lethargic Cardiovascular: normal rate Respiratory/Chest: lungs clear Abdomen: soft Sampson Leggett MD Feb 27, 2018 23:11
[2018-02-28] VITALS: BP 114/60
[2018-02-28 04:00] VITALS: BP 112/48
--- NOTE | 2018-02-28 07:07 | NUR ---
CASE MANAGEMENT:REVIEW 02/27/18 SI: ACUTE ENCEPHALOPATHY D/T UTI. DYSPHAGIA TEMP LAST NIGHT ~ 99.5 97.0 72 18 144/55 99% ON RA ALBUMIN-2.8 IS: VALPROIC GT Q12 IV ROCEPHIN QD LEXAPRO GT QD RISPERDAL GT BID NORVASC GT QD COREG GT Q12 : TELEMETRY STATUS PLAN: FAMILY WANTS PATIENT TO EAT ~ FAILED SWALLOW EVAL ~ CONTINUE NON ORAL FEEDING 02/28/18 SI: ACUTE ENCEPHALOPATHY D/T UTI. DYSPHAGIA 97.7 61 20 112/48 97% ON RA IS: NORVASC GT QD DEPAKENE GT Q12 IV ROCEPHIN Q24 LEXAPRO GT QD RISPERDAL GT BID COREG GT Q12 : TELEMETRY STATUS DCP: FROM [facility]
--- NOTE | 2018-02-28 07:22 | NUR ---
INSURANCE ALL CLINICALS AND REVIEWS FAXED TO: MACRINA TRAVIS/LACEY BILLS:ALICIA F:[phone]
--- NOTE | 2018-02-28 07:40 | NUR ---
HAND-OFF: Report given to GUANACO Orellana. Pt. is in stable condition. Plan of care endorsed.
[2018-02-28 07:48] VITALS: BP 118/63
--- NOTE | 2018-02-28 07:55 | NUR ---
NURSE NOTES: pt asleep, arousable, no distress. hob elevated >30 degrees, gt patent intact no residual. call light within reach. will monitor.
[2018-02-28] MEDS: Carvedilol 6.25mg Tab GT SCH (08:07)
[2018-02-28] MEDS: Valproic Acid 250mg/5ml Liquid GT SCH ×2 (08:07→20:54)
[2018-02-28] MEDS: cefTRIAXone 1 GM in D5W 55 ML IVPB SCH (08:11)
[2018-02-28] MEDS: Multivitamins W/Minerals 15 ML UDC GT SCH (08:11)
--- NOTE | 2018-02-28 10:18 | Nephrology Progress Note ---
Assessment/Plan Problem List: (1) UTI (urinary tract infection) (2) Encephalopathy (3) HTN (hypertension) (4) Diabetes mellitus Assessment UTI h/o rapidly progressive dementia, ? Encephalitis mild HTN PEG mild elevation of A1c Plan Urine cultures neg antibiotics noted watch lytes adjust psychotropics per psych ! down on norvasc per orders not much to add from renal stand med surg ? Dc DC plascencia Subjective ROS Limited/Unobtainable: No Objective Objective Last 24 Hour Vital Signs Date Time Temp Pulse Resp B/P (MAP) Pulse Ox O2 Delivery O2 Flow Rate FiO2 02/28/18 08:07 66 118/63 02/28/18 08:07 66 118/63 02/28/18 08:04 66 02/28/18 07:50 Room Air 02/28/18 07:48 97.5 66 20 118/63 (81) 97 02/28/18 04:00 61 02/28/18 04:00 97.7 61 20 112/48 (69) 97 02/28/18 00:00 74 02/28/18 00:00 98.4 74 15 114/60 (78) 98 02/27/18 21:21 74 147/63 02/27/18 21:00 Room Air 02/27/18 20:00 97.7 74 18 147/63 (91) 97 02/27/18 20:00 74 02/27/18 16:00 97.8 74 20 141/71 (94) 98 02/27/18 16:00 71 02/27/18 12:00 97.0 69 18 113/59 (77) 99 02/27/18 12:00 60 Intake and Output 02/27/18 02/28/18 19:00 07:00 Intake Total 1340 ml 140 ml Output Total 500 ml 650 ml Balance 840 ml -510 ml Intake Free Water 750 ml 100 ml IV Total 110 ml Tube Feeding 480 ml 40 ml Output Urine Total 500 ml 650 ml # Bowel Movements 1 1 Height (Feet): 5 Height (Inches): 6.00 Weight (Pounds): 140 General Appearance: no apparent distress Objective no change Nahum Connolly MD Feb 28, 2018 10:18
--- NOTE | 2018-02-28 10:28 | NUR ---
NURSE NOTES: received order from Dr Leggett for pt to be medsurg
--- NOTE | 2018-02-28 10:53 | Infectious Diseases Prog Note ---
Assessment/Plan Assessment/Plan A; Pyuria, UTI treated AMS VRE colonization Dementia, P; Discontinue Rocephin Observe off antibiotic Subjective ROS Limited/Unobtainable: Yes Allergies: Coded Allergies: IODINE (Verified Allergy, Unknown, 11/10/17) Objective Vital Signs Last 24 Hour Vital Signs Date Time Temp Pulse Resp B/P (MAP) Pulse Ox O2 Delivery O2 Flow Rate FiO2 02/28/18 08:07 66 118/63 02/28/18 08:07 66 118/63 02/28/18 08:04 66 02/28/18 07:50 Room Air 02/28/18 07:48 97.5 66 20 118/63 (81) 97 02/28/18 04:00 61 02/28/18 04:00 97.7 61 20 112/48 (69) 97 02/28/18 00:00 74 02/28/18 00:00 98.4 74 15 114/60 (78) 98 02/27/18 21:21 74 147/63 02/27/18 21:00 Room Air 02/27/18 20:00 97.7 74 18 147/63 (91) 97 02/27/18 20:00 74 02/27/18 16:00 97.8 74 20 141/71 (94) 98 02/27/18 16:00 71 02/27/18 12:00 97.0 69 18 113/59 (77) 99 02/27/18 12:00 60 Height (Feet): 5 Height (Inches): 6.00 Weight (Pounds): 140 General Appearance: no acute distress HEENT: mucous membranes moist Respiratory/Chest: lungs clear Cardiovascular: normal rate Abdomen: soft, non tender, other - GT feeding Extremities: no edema Neurologic/Psychiatric: other - poorly responsive Microbiology Date/Time Source Procedure Growth Status 02/25/18 11:45 Indwelling Cath Urine Culture - Final NO GROWTH AFTER 48 HOURS Complete Current Medications Medications (Trade) Dose Ordered Sig/Claritza Route PRN Reason Start Time Stop Time Status Last Admin Dose Admin Acetaminophen (Tylenol) 650 mg Q4H PRN GT For Pain 02/25/18 00:30 03/27/18 00:29 Amlodipine Besylate (Norvasc) 2.5 mg DAILY GT 02/27/18 09:00 03/29/18 08:59 02/28/18 08:07 Carvedilol (Coreg) 6.25 mg EVERY 12 HOURS GT 02/25/18 09:00 03/27/18 08:59 02/28/18 08:07 Ceftriaxone Sodium 1 gm/ Dextrose 55 ml @ 110 mls/hr DAILY IVPB 02/25/18 11:30 03/04/18 11:29 02/28/18 08:11 Escitalopram Oxalate (Lexapro) 10 mg DAILY GT 02/25/18 09:00 03/27/18 08:59 02/28/18 08:07 Lansoprazole (Prevacid) 30 mg DAILY GT 02/25/18 09:00 03/27/18 08:59 02/28/18 08:07 Multivitamins (Multivitamins W/ Minerals 15ml Liquid) 15 ml DAILY GT 02/25/18 09:00 03/27/18 08:59 02/28/18 08:11 Polyethylene Glycol (Miralax) 17 gm BEDTIME GT 02/25/18 21:00 03/27/18 20:59 02/27/18 21:18 Pravastatin Sodium (Pravachol) 80 mg BEDTIME GT 02/25/18 21:00 03/27/18 20:59 02/27/18 21:19 Risperidone (RisperDAL) 1 mg BID GT 02/25/18 09:00 03/27/18 08:59 02/28/18 08:07 Valproic Acid (Depakene) 500 mg EVERY 12 HOURS GT 02/26/18 09:00 03/28/18 08:59 02/28/18 08:07 Kevon Thurston MD Feb 28, 2018 10:53
--- NOTE | 2018-02-28 11:33 | NUR ---
NURSE NOTES: 16fr plascencia removed , pt tolerated well.
[2018-02-28 12:16] VITALS: BP 116/52
--- NOTE | 2018-02-28 15:10 | General Progress Note ---
Assessment/Plan Problem List: (1) Encephalopathy ICD Codes: G93.40 - Encephalopathy SNOMED: 25964666 (2) Constipation ICD Codes: K59.00 - Constipation, unspecified SNOMED: 98060190 (3) Altered level of consciousness ICD Codes: R40.4 - Transient alteration of awareness SNOMED: 5072270 (4) HTN (hypertension) ICD Codes: I10 - Essential (primary) hypertension SNOMED: 60842777 (5) Diabetes mellitus ICD Codes: E11.9 - Type 2 diabetes mellitus without complications SNOMED: 63217118 (6) UTI (urinary tract infection) ICD Codes: N39.0 - Urinary tract infection, site not specified SNOMED: 27529390 Qualifiers: Qualified Codes: N39.0 - Urinary tract infection, site not specified (7) Episode of generalized weakness ICD Codes: R53.1 - Weakness SNOMED: 22950056 Assessment/Plan improving ams due to uti more alert labs wnl obs Subjective ROS Limited/Unobtainable: Yes Allergies: Coded Allergies: IODINE (Verified Allergy, Unknown, 11/10/17) Objective Last 24 Hour Vital Signs Date Time Temp Pulse Resp B/P (MAP) Pulse Ox O2 Delivery O2 Flow Rate FiO2 02/28/18 12:16 97.0 59 18 116/52 (73) 97 02/28/18 08:07 66 118/63 02/28/18 08:07 66 118/63 02/28/18 08:04 66 02/28/18 07:50 Room Air 02/28/18 07:48 97.5 66 20 118/63 (81) 97 02/28/18 04:00 61 02/28/18 04:00 97.7 61 20 112/48 (69) 97 02/28/18 00:00 74 02/28/18 00:00 98.4 74 15 114/60 (78) 98 02/27/18 21:21 74 147/63 02/27/18 21:00 Room Air 02/27/18 20:00 97.7 74 18 147/63 (91) 97 02/27/18 20:00 74 02/27/18 16:00 97.8 74 20 141/71 (94) 98 02/27/18 16:00 71 Intake and Output 02/27/18 02/28/18 19:00 07:00 Intake Total 1340 ml 140 ml Output Total 500 ml 650 ml Balance 840 ml -510 ml Intake Free Water 750 ml 100 ml IV Total 110 ml Tube Feeding 480 ml 40 ml Output Urine Total 500 ml 650 ml # Bowel Movements 1 1 Height (Feet): 5 Height (Inches): 6.00 Weight (Pounds): 140 General Appearance: confused Cardiovascular: regularly irregular Respiratory/Chest: lungs clear Sampson Leggett MD Feb 28, 2018 15:10
[2018-02-28 16:00] VITALS: BP 115/68
--- NOTE | 2018-02-28 16:45 | NUR ---
NURSE NOTES: pt had voided urine , no foul odor noted, yellow urine, incontinent, changed pt, kept pt clean dry and comfortable. transferred to [facility] in stable condition, report given to GUANACO Sierra
[2018-02-28] MEDS ORDERED: Acetaminophen 650mg/20.3ml GT PRN (17:00)
--- NOTE | 2018-02-28 19:36 | NUR ---
HAND-OFF: Report given to GUANACO Nelson.
--- NOTE | 2018-02-28 19:51 | NUR ---
NURSE NOTES: Received patient awake,non-verbal,resting in bed,tolerating her g-tube feeding well,relatives at bedside.
[2018-02-28 20:00] VITALS: BP 152/84
[2018-02-28] MEDS: Miralax 17gm pkt GT SCH (20:54)
[2018-02-28] MEDS ORDERED: Carvedilol 6.25mg Tab GT SCH (21:00)
[2018-03-01] VITALS (7 sets, daily range): BP systolic 74–114; BP diastolic 42–80
--- NOTE | 2018-03-01 07:25 | NUR ---
HAND-OFF: Report given to GUANACO Dugan.
--- NOTE | 2018-03-01 08:00 | NUR ---
NURSE NOTES: received patient in bed, asleep, no sign of distress. RAC and R hand IV access intact. Patient receives Glucerna 1.5 at 40cc/hr through Gtube. HOB elevated over 30 degrees for aspiration precaution. Call light within easy reach, siderails up x2, bed locked at the lowest position possible, on bed alarm. Will continue to monitor patient and follow up with the plan of care.
[2018-03-01] MEDS: Valproic Acid 250mg/5ml Liquid GT SCH ×2 (09:49→21:02)
[2018-03-01] MEDS: Multivitamins W/Minerals 15 ML UDC GT SCH (09:50)
--- NOTE | 2018-03-01 09:51 | NUR ---
NURSE NOTES: Not given am BP meds as dr. Connolly changed parameters to hold for SBP < 120 mmHg.
--- NOTE | 2018-03-01 10:00 | NUR ---
NURSE NOTES: patient's Gtube has been clogged since around 8am. Tried to unclog with warm cranberry juice witout success. Unclogged Gtubr successfully with coke around 10am.
--- NOTE | 2018-03-01 10:59 | Nephrology Progress Note ---
Assessment/Plan Problem List: (1) UTI (urinary tract infection) (2) Encephalopathy (3) HTN (hypertension) (4) Diabetes mellitus Assessment UTI h/o rapidly progressive dementia, ? Encephalitis mild HTN PEG mild elevation of A1c Plan Urine cultures neg antibiotics noted watch lytes adjust psychotropics per psych ! down on norvasc per orders not much to add from renal stand med surg ? Dc DC plascencia Subjective ROS Limited/Unobtainable: No Objective Objective Last 24 Hour Vital Signs Date Time Temp Pulse Resp B/P (MAP) Pulse Ox O2 Delivery O2 Flow Rate FiO2 03/01/18 09:00 Room Air 03/01/18 08:00 98.9 70 19 114/72 (86) 100 03/01/18 04:00 97.1 63 18 98/52 (67) 95 03/01/18 00:00 97.9 71 20 99/75 (83) 95 02/28/18 20:53 63 115/68 02/28/18 20:02 Room Air 02/28/18 20:00 98.1 87 18 152/84 (106) 99 02/28/18 16:00 97.0 63 18 115/68 (84) 97 02/28/18 12:16 97.0 59 18 116/52 (73) 97 Intake and Output 02/28/18 03/01/18 19:00 07:00 Intake Total 800 ml 1230 ml Balance 800 ml 1230 ml Intake Free Water 400 ml 750 ml Tube Feeding 400 ml 480 ml # Voids 1 # Bowel Movements 1 Current Medications Medications (Trade) Dose Ordered Sig/Claritza Route PRN Reason Start Time Stop Time Status Last Admin Dose Admin Acetaminophen (Tylenol) 650 mg Q4H PRN GT For Pain 02/28/18 17:00 03/27/18 16:59 Amlodipine Besylate (Norvasc) 2.5 mg DAILY GT 03/02/18 09:00 03/29/18 08:59 Carvedilol (Coreg) 6.25 mg EVERY 12 HOURS GT 03/01/18 21:00 03/27/18 08:59 Escitalopram Oxalate (Lexapro) 10 mg DAILY GT 03/01/18 09:00 03/27/18 08:59 03/01/18 09:50 Lansoprazole (Prevacid) 30 mg DAILY GT 03/01/18 09:00 03/27/18 08:59 03/01/18 09:50 Multivitamins (Multivitamins W/ Minerals 15ml Liquid) 15 ml DAILY GT 03/01/18 09:00 03/27/18 08:59 03/01/18 09:50 Polyethylene Glycol (Miralax) 17 gm BEDTIME GT 02/28/18 21:00 03/27/18 20:59 02/28/18 20:54 Pravastatin Sodium (Pravachol) 80 mg BEDTIME GT 02/28/18 21:00 03/27/18 20:59 02/28/18 20:53 Risperidone (RisperDAL) 1 mg BID GT 02/28/18 18:00 03/27/18 08:59 03/01/18 09:50 Valproic Acid (Depakene) 500 mg EVERY 12 HOURS GT 02/28/18 21:00 03/28/18 08:59 03/01/18 09:49 Height (Feet): 5 Height (Inches): 6.00 Weight (Pounds): 140 Cardiovascular: normal rate Respiratory/Chest: lungs clear Abdomen: soft Objective no change Nahum Connolly MD Mar 01, 2018 10:59
--- NOTE | 2018-03-01 11:20 | NUR ---
CASE MANAGEMENT:REVIEW 03/01/18 SI: ACUTE ENCEPHALOPATHY D/T UTI. DYSPHAGIA 98.9 70 19 114/72 100% ON RA IS: NORVASC GT QD DEPAKENE GT Q12 IV ROCEPHIN Q24 LEXAPRO GT QD RISPERDAL GT BID COREG GT Q12 : TELEMETRY STATUS DCP: FROM [facility] PL[facility]: HOPE TO DISCHARGE TODAY IF BLOOD PRESSURE REMAINS STABLE
--- NOTE | 2018-03-01 12:34 | Infectious Diseases Prog Note ---
Assessment/Plan Assessment/Plan A; Pyuria, UTI treated AMS VRE colonization Dementia, P; Observe off antibiotic Subjective ROS Limited/Unobtainable: Yes Allergies: Coded Allergies: IODINE (Verified Allergy, Unknown, 11/10/17) Objective Vital Signs Last 24 Hour Vital Signs Date Time Temp Pulse Resp B/P (MAP) Pulse Ox O2 Delivery O2 Flow Rate FiO2 03/01/18 12:16 63 74/42 (53) 03/01/18 09:00 Room Air 03/01/18 08:00 98.9 70 19 114/72 (86) 100 03/01/18 04:00 97.1 63 18 98/52 (67) 95 03/01/18 00:00 97.9 71 20 99/75 (83) 95 02/28/18 20:53 63 115/68 02/28/18 20:02 Room Air 02/28/18 20:00 98.1 87 18 152/84 (106) 99 02/28/18 16:00 97.0 63 18 115/68 (84) 97 Height (Feet): 5 Height (Inches): 6.00 Weight (Pounds): 140 General Appearance: no acute distress HEENT: mucous membranes moist Respiratory/Chest: lungs clear Cardiovascular: normal rate Abdomen: soft, non tender, other - GT feeding Neurologic/Psychiatric: other - sleeping Current Medications Medications (Trade) Dose Ordered Sig/Claritza Route PRN Reason Start Time Stop Time Status Last Admin Dose Admin Acetaminophen (Tylenol) 650 mg Q4H PRN GT For Pain 02/28/18 17:00 03/27/18 16:59 Amlodipine Besylate (Norvasc) 2.5 mg DAILY GT 03/02/18 09:00 03/29/18 08:59 Carvedilol (Coreg) 6.25 mg EVERY 12 HOURS GT 03/01/18 21:00 03/27/18 08:59 Escitalopram Oxalate (Lexapro) 10 mg DAILY GT 03/01/18 09:00 03/27/18 08:59 03/01/18 09:50 Lansoprazole (Prevacid) 30 mg DAILY GT 03/01/18 09:00 03/27/18 08:59 03/01/18 09:50 Multivitamins (Multivitamins W/ Minerals 15ml Liquid) 15 ml DAILY GT 1/7/19 09:00 03/27/18 08:59 03/01/18 09:50 Polyethylene Glycol (Miralax) 17 gm BEDTIME GT 02/28/18 21:00 03/27/18 20:59 02/28/18 20:54 Pravastatin Sodium (Pravachol) 80 mg BEDTIME GT 02/28/18 21:00 03/27/18 20:59 02/28/18 20:53 Risperidone (RisperDAL) 1 mg BID GT 02/28/18 18:00 03/27/18 08:59 03/01/18 09:50 Sodium Chloride 500 ml @ 999 mls/hr Q31M ONCE IV 03/01/18 13:00 03/01/18 13:30 Valproic Acid (Depakene) 500 mg EVERY 12 HOURS GT 02/28/18 21:00 03/28/18 08:59 03/01/18 09:49 Kevon Thurston MD Mar 01, 2018 12:34
--- NOTE | 2018-03-01 12:52 | General Progress Note ---
Assessment/Plan Problem List: (1) Toxic encephalopathy ICD Codes: G92 - Toxic encephalopathy SNOMED: 63088335 Status: unchanged Assessment/Plan risperdal 1mg po qhs cont lexapro 10mg qhs cont depakote the pt lacks capacity to make decisions. Subjective Neurologic/Psychiatric: Reports: anxiety, depressed Allergies: Coded Allergies: IODINE (Verified Allergy, Unknown, 11/10/17) Subjective the pt is stable at baseline no behavioral issues no agitation Objective Last 24 Hour Vital Signs Date Time Temp Pulse Resp B/P (MAP) Pulse Ox O2 Delivery O2 Flow Rate FiO2 03/01/18 12:16 63 74/42 (53) 03/01/18 09:00 Room Air 03/01/18 08:00 98.9 70 19 114/72 (86) 100 03/01/18 04:00 97.1 63 18 98/52 (67) 95 03/01/18 00:00 97.9 71 20 99/75 (83) 95 02/28/18 20:53 63 115/68 02/28/18 20:02 Room Air 02/28/18 20:00 98.1 87 18 152/84 (106) 99 02/28/18 16:00 97.0 63 18 115/68 (84) 97 Intake and Output 02/28/18 03/01/18 19:00 07:00 Intake Total 800 ml 1230 ml Balance 800 ml 1230 ml Intake Free Water 400 ml 750 ml Tube Feeding 400 ml 480 ml # Voids 1 # Bowel Movements 1 Height (Feet): 5 Height (Inches): 6.00 Weight (Pounds): 140 General Appearance: alert, confused Neurologic: disoriented, depressed affect Ramon Duke MD Mar 01, 2018 12:52
--- NOTE | 2018-03-01 12:58 | NUR ---
INSURANCE ALL CLINICALS AND REVIEWS FAXED TO: [facility]ACE[facility] BILLS:ALICIA F:[phone]
[2018-03-01] MEDS ORDERED: Sodium Chloride 500ML 500 ML IV ONE (13:00)
--- NOTE | 2018-03-01 13:01 | NUR ---
DISCHARGE PLANNING NO DISCHARGE ORDER NOTED FAXED CLINICALS TO [facility] T: [phone] F: [phone] CALLED DRU AND SPOKE WITH OMKAR WHO SAID SHE WOULD CALL [facility] FOR AUTHORIZATION FOR PATIENT TO RETURN NO DC ORDER NOTED AT THIS TIME
--- NOTE | 2018-03-01 13:47 | NUR ---
DISCHARGE PLAN PATIENT IS FROM [facility] T: [phone] F: [phone] OMKAR AT [facility] IS WILLING TO ACCEPT PATIENT BACK BUT SHE IS CURRENTLY WAITING TO HEAR BACK FROM [facility] FOR AUTHORIZATION FOR PATIENT TO RETURN AMBULANCE HAS BEEN PLACED ON "WILL CALL" WAITING FOR BED ASSIGNMENT AND TO FIND OUT ID PATIENT IS SKILLED OR RESIDENTIAL TRANSFER FORM HAS BEEN COMPLETED
--- NOTE | 2018-03-01 14:24 | NUR ---
ST NOTE: SWALLOW STATUS FOLLOWED UP PT'S CONDITIONS. PT SEEN AT BEDSIDE IN PM. PT IS ASLEEP. CURRENTLY, PT IS RECEIVING THE TUBE FEEDING ONLY DUE TO PROBABLE DECREASED ALERTNESS. DISCUSSED WITH RNJAYLAN, RE:PT'S CONDITIONS. EXPRESSED THE CONCERN RE: PO INTAKE AND PT DECREASED ALERTNESS. HOLD PO FOR NOW. D/W THE STAFF.
--- NOTE | 2018-03-01 15:25 | NUR ---
RD ASSESSMENT & RECOMMENDATIONS SEE CARE ACTIVITY FOR COMPLETE ASSESSMENT DAILY ESTIMATED NEEDS: Needs based on pre-DM/ 55.5kg abw 25-30 kcals/kg 1533-4150 total kcals 1-1.2 g protein/kg 56-67 g total protein 25-30 mL/kg 8337-2079 total fluid mLs NUTRITION DIAGNOSIS: *Swallowing difficulty R/T dysphagia as evidenced by pt on GT feeding. *Altered nutrition related lab values R/T prediabetes as evidenced by elev A1C, increased from 6.0 on 11/11/17-> 6.2 on 02/25/18 CURRENT TF:Glucerna 1.5 @ 40ml/hr x 24 hrs ENTERAL NUTRITION RECOMMENDATIONS: Glucerna 1.5 @ 40ml/hr x 24 hrs to provide 960ml, 1440kcal, 79g prot, 728 ml free water - Continue current TF order as ordered-> meets 100% est kcal/prot needs - Flush per MD/ HOB over 30 degrees ADDITIONAL RECOMMENDATIONS: * Monitor lytes, replete as needed * Monitor BGs, need for hypoglycemic agent * Calibrated bedscale wt for accurate CBW . . . .
--- NOTE | 2018-03-01 19:25 | NUR ---
HAND-OFF: Report given to GUANACO Nelson.
--- NOTE | 2018-03-01 19:29 | NUR ---
NURSE NOTES: Received patient comfortably sleeping,tolerating her g-tube feeding well,relatives at bedside.
[2018-03-01] MEDS: Carvedilol 6.25mg Tab GT SCH (21:00)
[2018-03-01] MEDS: Miralax 17gm pkt GT SCH (21:02)
--- NOTE | 2018-03-01 21:27 | General Progress Note ---
Assessment/Plan Problem List: (1) Encephalopathy ICD Codes: G93.40 - Encephalopathy SNOMED: 08270473 (2) Constipation ICD Codes: K59.00 - Constipation, unspecified SNOMED: 60860575 (3) Altered level of consciousness ICD Codes: R40.4 - Transient alteration of awareness SNOMED: 0858493 (4) HTN (hypertension) ICD Codes: I10 - Essential (primary) hypertension SNOMED: 05805317 (5) Diabetes mellitus ICD Codes: E11.9 - Type 2 diabetes mellitus without complications SNOMED: 83377488 (6) UTI (urinary tract infection) ICD Codes: N39.0 - Urinary tract infection, site not specified SNOMED: 17764989 Qualifiers: Qualified Codes: N39.0 - Urinary tract infection, site not specified (7) Episode of generalized weakness ICD Codes: R53.1 - Weakness SNOMED: 42769281 Assessment/Plan dementia of alzheimer type abx per id afebrile ams due to uti Subjective ROS Limited/Unobtainable: Yes Allergies: Coded Allergies: IODINE (Verified Allergy, Unknown, 11/10/17) Objective Last 24 Hour Vital Signs Date Time Temp Pulse Resp B/P (MAP) Pulse Ox O2 Delivery O2 Flow Rate FiO2 03/01/18 21:00 67 109/70 03/01/18 20:08 Room Air 03/01/18 16:00 97.4 67 18 109/70 (83) 99 03/01/18 12:16 63 74/42 (53) 03/01/18 12:00 98.1 63 17 74/42 (53) 100 03/01/18 09:00 Room Air 03/01/18 08:00 98.9 70 19 114/72 (86) 100 03/01/18 04:00 97.1 63 18 98/52 (67) 95 03/01/18 00:00 97.9 71 20 99/75 (83) 95 Intake and Output 02/28/18 03/01/18 19:00 07:00 Intake Total 800 ml 1230 ml Balance 800 ml 1230 ml Intake Free Water 400 ml 750 ml Tube Feeding 400 ml 480 ml # Voids 1 # Bowel Movements 1 Height (Feet): 5 Height (Inches): 6.00 Weight (Pounds): 140 Neck: supple Cardiovascular: normal rate Respiratory/Chest: lungs clear Abdomen: soft Sampson Leggett MD Mar 01, 2018 21:27
[2018-03-02] VITALS (7 sets, daily range): BP systolic 106–155; BP diastolic 50–87
--- NOTE | 2018-03-02 07:20 | NUR ---
HAND-OFF: Report given to Marissa Hooper RN.
--- NOTE | 2018-03-02 08:00 | NUR ---
NURSE NOTES: Patient opens eyes when name called,respirations are unlabored.G-tube feedings as ordered,abdomen is soft.bed alarm on.
[2018-03-02] MEDS: Carvedilol 6.25mg Tab GT SCH ×2 (09:00→20:21)
[2018-03-02] MEDS: Valproic Acid 250mg/5ml Liquid GT SCH ×2 (09:44→20:22)
[2018-03-02] MEDS: Multivitamins W/Minerals 15 ML UDC GT SCH (09:44)
--- NOTE | 2018-03-02 13:21 | Nephrology Progress Note ---
Assessment/Plan Problem List: (1) UTI (urinary tract infection) (2) Encephalopathy (3) HTN (hypertension) (4) Diabetes mellitus Assessment UTI h/o rapidly progressive dementia, ? Encephalitis mild HTN PEG mild elevation of A1c Plan Urine cultures neg antibiotics noted watch lytes adjust psychotropics per psych ! down on norvasc per orders not much to add from renal stand med surg ? Dc DC plascencia Subjective ROS Limited/Unobtainable: No Constitutional: Reports: malaise Objective Objective Last 24 Hour Vital Signs Date Time Temp Pulse Resp B/P (MAP) Pulse Ox O2 Delivery O2 Flow Rate FiO2 03/02/18 09:37 59 112/50 (70) 03/02/18 09:00 Room Air 03/02/18 09:00 59 112/50 03/02/18 09:00 59 112/50 03/02/18 08:00 97.8 59 22 155/74 (101) 98 03/02/18 04:00 98.3 61 20 132/63 (86) 100 03/02/18 00:16 97.6 73 18 138/87 (104) 96 03/01/18 21:00 67 109/70 03/01/18 20:08 Room Air 03/01/18 20:00 97.6 78 20 108/80 (89) 96 03/01/18 16:00 97.4 67 18 109/70 (83) 99 Intake and Output 03/01/18 03/02/18 19:00 07:00 Intake Total 1400 ml 1230 ml Balance 1400 ml 1230 ml Intake Free Water 500 ml 750 ml IV Total 500 ml Tube Feeding 400 ml 480 ml Height (Feet): 5 Height (Inches): 6.00 Weight (Pounds): 140 General Appearance: no apparent distress Objective no change Nahum Connolly MD Mar 02, 2018 13:21
--- NOTE | 2018-03-02 15:02 | Infectious Diseases Prog Note ---
Assessment/Plan Assessment/Plan A; Pyuria, UTI treated AMS VRE colonization Dementia, P; Observe off antibiotic Subjective ROS Limited/Unobtainable: Yes Constitutional: Reports: no symptoms Allergies: Coded Allergies: IODINE (Verified Allergy, Unknown, 11/10/17) Objective Vital Signs Last 24 Hour Vital Signs Date Time Temp Pulse Resp B/P (MAP) Pulse Ox O2 Delivery O2 Flow Rate FiO2 03/02/18 09:37 59 112/50 (70) 03/02/18 09:00 Room Air 03/02/18 09:00 59 112/50 03/02/18 09:00 59 112/50 03/02/18 08:00 97.8 59 22 155/74 (101) 98 03/02/18 04:00 98.3 61 20 132/63 (86) 100 03/02/18 00:16 97.6 73 18 138/87 (104) 96 03/01/18 21:00 67 109/70 03/01/18 20:08 Room Air 03/01/18 20:00 97.6 78 20 108/80 (89) 96 03/01/18 16:00 97.4 67 18 109/70 (83) 99 Height (Feet): 5 Height (Inches): 6.00 Weight (Pounds): 140 General Appearance: no acute distress HEENT: mucous membranes moist Respiratory/Chest: lungs clear Cardiovascular: normal rate Abdomen: soft, non tender Extremities: no edema Neurologic/Psychiatric: other - sleeping Current Medications Medications (Trade) Dose Ordered Sig/Claritza Route PRN Reason Start Time Stop Time Status Last Admin Dose Admin Acetaminophen (Tylenol) 650 mg Q4H PRN GT For Pain 02/28/18 17:00 03/27/18 16:59 Amlodipine Besylate (Norvasc) 2.5 mg DAILY GT 03/02/18 09:00 03/29/18 08:59 Carvedilol (Coreg) 6.25 mg EVERY 12 HOURS GT 03/01/18 21:00 03/27/18 08:59 Escitalopram Oxalate (Lexapro) 10 mg DAILY GT 03/01/18 09:00 03/27/18 08:59 03/02/18 09:44 Lansoprazole (Prevacid) 30 mg DAILY GT 03/01/18 09:00 03/27/18 08:59 03/02/18 09:44 Multivitamins (Multivitamins W/ Minerals 15ml Liquid) 15 ml DAILY GT 03/01/18 09:00 03/27/18 08:59 03/02/18 09:44 Polyethylene Glycol (Miralax) 17 gm BEDTIME GT 02/28/18 21:00 03/27/18 20:59 03/01/18 21:02 Pravastatin Sodium (Pravachol) 80 mg BEDTIME GT 02/28/18 21:00 03/27/18 20:59 03/01/18 21:01 Risperidone (RisperDAL) 1 mg BID GT 02/28/18 18:00 03/27/18 08:59 03/02/18 09:44 Valproic Acid (Depakene) 500 mg EVERY 12 HOURS GT 02/28/18 21:00 03/28/18 08:59 03/02/18 09:44 Kevon Thurston MD Mar 02, 2018 15:02
--- NOTE | 2018-03-02 18:31 | NUR ---
NURSE NOTES: Patient continues to tolerate G-tube feedings.HOB Is elevated,visiting with family member,Bed alarm on.
--- NOTE | 2018-03-02 19:20 | NUR ---
HAND-OFF: Report given to FLOYD BLANC.
--- NOTE | 2018-03-02 19:30 | NUR ---
NURSE NOTES: Recieved patient in bed, by the bedside, no acute distress noted or reported, patient is a/o to her name only, on G tube feedings, tolerating well. Bed is locked, alarm is on and bed in low position. Call light is within reach, will continue to monitor for safety and comfort.
[2018-03-02] MEDS: Miralax 17gm pkt GT SCH (20:22)
--- NOTE | 2018-03-02 21:24 | General Progress Note ---
Assessment/Plan Problem List: (1) Encephalopathy ICD Codes: G93.40 - Encephalopathy SNOMED: 33791355 (2) Constipation ICD Codes: K59.00 - Constipation, unspecified SNOMED: 08981762 (3) Altered level of consciousness ICD Codes: R40.4 - Transient alteration of awareness SNOMED: 7350430 (4) HTN (hypertension) ICD Codes: I10 - Essential (primary) hypertension SNOMED: 59811394 (5) Diabetes mellitus ICD Codes: E11.9 - Type 2 diabetes mellitus without complications SNOMED: 94076561 (6) UTI (urinary tract infection) ICD Codes: N39.0 - Urinary tract infection, site not specified SNOMED: 98578231 Qualifiers: Qualified Codes: N39.0 - Urinary tract infection, site not specified (7) Episode of generalized weakness ICD Codes: R53.1 - Weakness SNOMED: 97353178 Status: progressing Assessment/Plan dementia of alzheimer type abx per id needs placement reviewed chart and labs and meds ams due to uti Subjective ROS Limited/Unobtainable: Yes Allergies: Coded Allergies: IODINE (Verified Allergy, Unknown, 11/10/17) Objective Last 24 Hour Vital Signs Date Time Temp Pulse Resp B/P (MAP) Pulse Ox O2 Delivery O2 Flow Rate FiO2 03/02/18 20:21 71 135/82 03/02/18 16:00 97.5 55 20 106/57 (73) 95 03/02/18 12:00 97.5 54 22 109/59 (76) 93 03/02/18 09:37 59 112/50 (70) 03/02/18 09:00 Room Air 03/02/18 09:00 59 112/50 03/02/18 09:00 59 112/50 03/02/18 08:00 97.8 59 22 155/74 (101) 98 03/02/18 04:00 98.3 61 20 132/63 (86) 100 03/02/18 00:16 97.6 73 18 138/87 (104) 96 Intake and Output 03/01/18 03/02/18 19:00 07:00 Intake Total 1400 ml 1230 ml Balance 1400 ml 1230 ml Intake Free Water 500 ml 750 ml IV Total 500 ml Tube Feeding 400 ml 480 ml Height (Feet): 5 Height (Inches): 6.00 Weight (Pounds): 140 General Appearance: confused Cardiovascular: normal rate Respiratory/Chest: lungs clear Sampson Leggett MD Mar 02, 2018 21:24
[2018-03-03] VITALS (8 sets, daily range): BP systolic 105–146; BP diastolic 59–93
--- NOTE | 2018-03-03 07:30 | NUR ---
NURSE NOTES: Received pt from [facility]. Pt is alert and orient x1. no SOB or acute respiratory distress noted. pt has intact IV access LH 24g HL. pt has g tube in place is running well. all needs attended, bed is locked and is in the lowest position, call light within easy reach. will continue to monitor.
--- NOTE | 2018-03-03 07:30 | NUR ---
HAND-OFF: Report given to Brian BLANC.
[2018-03-03] MEDS: Valproic Acid 250mg/5ml Liquid GT SCH ×2 (08:21→20:32)
[2018-03-03] MEDS: Carvedilol 6.25mg Tab GT SCH ×2 (08:21→20:32)
[2018-03-03] MEDS: Multivitamins W/Minerals 15 ML UDC GT SCH (08:22)
--- NOTE | 2018-03-03 11:37 | NUR ---
CASE MANAGEMENT:REVIEW 03/03/18 SI: ACUTE ENCEPHALOPATHY D/T UTI. DYSPHAGIA 97.2 74 138/90 98% ON RA IS: NORVASC GT QD DEPAKENE GT Q12 IV ROCEPHIN Q24 LEXAPRO GT QD RISPERDAL GT BID COREG GT Q12 : TELEMET[facility]: PATIENT HAS HAD A DISCHARGE ORDER SINCE THURSDAY [facility] NURSING HAS BEEN REACHING OUT TO [facility] FOR AUTHORIZATION OF PATIENT'S RETURN BUT NO ONE HAS BEEN RESPONDING TO [facility]'S REQUEST PATIENT CANNOT REMAIN IN THE HOSPITAL NEED TO SPEAK WITH A [facility] TYPE PHOTOGRAPHY SUPERVISOR JOSEFA
--- NOTE | 2018-03-03 11:44 | NUR ---
DISCHARGE PLANNING [facility] IS STILL WAITING FOR AUTHORIZATION FROM NELSY ENRIQUEZ BEFORE THEY CAN ACCEPT PATIENT THIS FINISHING [employer]ACH[employer] CALLED ADMITTING REQUESTING A DIRECT PHONE NUMBER FOR NELSY ENRIQUEZ [employer] IN ORDER TO EXPEDITE THIS DISCHARGE
--- NOTE | 2018-03-03 14:08 | Infectious Diseases Prog Note ---
Assessment/Plan Assessment/Plan A; Pyuria, UTI treated AMS VRE colonization Dementia, P; Observe off antibiotic Subjective ROS Limited/Unobtainable: Yes Allergies: Coded Allergies: IODINE (Verified Allergy, Unknown, 11/10/17) Objective Vital Signs Last 24 Hour Vital Signs Date Time Temp Pulse Resp B/P (MAP) Pulse Ox O2 Delivery O2 Flow Rate FiO2 03/03/18 11:50 98.8 57 18 105/59 (74) 98 03/03/18 09:00 Room Air 03/03/18 08:21 74 138/90 03/03/18 08:21 74 138/90 03/03/18 08:00 97.2 74 20 138/90 (106) 98 03/03/18 05:43 97.5 68 17 137/88 (104) 96 03/03/18 05:42 97.5 68 17 137/88 (104) 03/03/18 04:00 97.5 68 17 137/88 (104) 96 03/03/18 00:00 97.8 82 17 140/93 (109) 95 03/02/18 21:00 Room Air 03/02/18 20:21 71 135/82 03/02/18 20:00 98.2 71 17 135/82 (99) 95 03/02/18 16:00 97.5 55 20 106/57 (73) 95 Height (Feet): 5 Height (Inches): 6.00 Weight (Pounds): 140 General Appearance: no acute distress HEENT: mucous membranes moist Respiratory/Chest: lungs clear Cardiovascular: normal rate Abdomen: soft, non tender, other - GT feeding Extremities: no edema Neurologic/Psychiatric: other - mostly sleeping Current Medications Medications (Trade) Dose Ordered Sig/Claritza Route PRN Reason Start Time Stop Time Status Last Admin Dose Admin Acetaminophen (Tylenol) 650 mg Q4H PRN GT For Pain 02/28/18 17:00 03/27/18 16:59 Amlodipine Besylate (Norvasc) 2.5 mg DAILY GT 03/02/18 09:00 03/29/18 08:59 03/03/18 08:21 Carvedilol (Coreg) 6.25 mg EVERY 12 HOURS GT 03/01/18 21:00 03/27/18 08:59 03/03/18 08:21 Escitalopram Oxalate (Lexapro) 10 mg DAILY GT 03/01/18 09:00 03/27/18 08:59 03/03/18 08:21 Lansoprazole (Prevacid) 30 mg DAILY GT 03/01/18 09:00 03/27/18 08:59 03/03/18 08:21 Multivitamins (Multivitamins W/ Minerals 15ml Liquid) 15 ml DAILY GT 03/01/18 09:00 03/27/18 08:59 03/03/18 08:22 Polyethylene Glycol (Miralax) 17 gm BEDTIME GT 02/28/18 21:00 03/27/18 20:59 03/02/18 20:22 Pravastatin Sodium (Pravachol) 80 mg BEDTIME GT 02/28/18 21:00 03/27/18 20:59 03/02/18 20:21 Risperidone (RisperDAL) 1 mg BID GT 02/28/18 18:00 03/27/18 08:59 03/03/18 08:22 Valproic Acid (Depakene) 500 mg EVERY 12 HOURS GT 02/28/18 21:00 03/28/18 08:59 03/03/18 08:21 Kevon Thurston MD Mar 03, 2018 14:08
--- NOTE | 2018-03-03 16:01 | Nephrology Progress Note ---
Assessment/Plan Problem List: (1) UTI (urinary tract infection) (2) Encephalopathy (3) HTN (hypertension) (4) Diabetes mellitus Assessment UTI h/o rapidly progressive dementia, ? Encephalitis mild HTN PEG mild elevation of A1c Plan Urine cultures neg antibiotics noted watch lytes adjust psychotropics per psych ! down on norvasc per orders not much to add from renal stand med surg ? Dc DC plascencia Subjective ROS Limited/Unobtainable: No Objective Objective Last 24 Hour Vital Signs Date Time Temp Pulse Resp B/P (MAP) Pulse Ox O2 Delivery O2 Flow Rate FiO2 03/03/18 11:50 98.8 57 18 105/59 (74) 98 03/03/18 09:00 Room Air 03/03/18 08:21 74 138/90 03/03/18 08:21 74 138/90 03/03/18 08:00 97.2 74 20 138/90 (106) 98 03/03/18 05:43 97.5 68 17 137/88 (104) 96 03/03/18 05:42 97.5 68 17 137/88 (104) 03/03/18 04:00 97.5 68 17 137/88 (104) 96 03/03/18 00:00 97.8 82 17 140/93 (109) 95 03/02/18 21:00 Room Air 03/02/18 20:21 71 135/82 03/02/18 20:00 98.2 71 17 135/82 (99) 95 Intake and Output 03/02/18 03/03/18 19:00 07:00 Intake Total 1020 ml 900 ml Balance 1020 ml 900 ml Intake Free Water 500 ml 500 ml Tube Feeding 520 ml 400 ml Height (Feet): 5 Height (Inches): 6.00 Weight (Pounds): 140 General Appearance: no apparent distress Objective no change Nahum Connolly MD Mar 03, 2018 16:01
--- NOTE | 2018-03-03 19:30 | NUR ---
NURSE NOTES: Recieved patient in bed, asleep, responsive to verbal and tactile stimuli, G tube feeding continuous, bed is in low position, locked and alarm is on, family is at the bedside. Call light is within reach, will continue to monitor for safety and comfort.
--- NOTE | 2018-03-03 19:42 | NUR ---
HAND-OFF: Report given to GUANACO BARRIENTOS.
[2018-03-03] MEDS: Miralax 17gm pkt GT SCH (20:32)
--- NOTE | 2018-03-03 21:42 | General Progress Note ---
Assessment/Plan Problem List: (1) Encephalopathy ICD Codes: G93.40 - Encephalopathy SNOMED: 33893726 (2) Constipation ICD Codes: K59.00 - Constipation, unspecified SNOMED: 57632226 (3) Altered level of consciousness ICD Codes: R40.4 - Transient alteration of awareness SNOMED: 5481245 (4) HTN (hypertension) ICD Codes: I10 - Essential (primary) hypertension SNOMED: 25133781 (5) Diabetes mellitus ICD Codes: E11.9 - Type 2 diabetes mellitus without complications SNOMED: 81247710 (6) UTI (urinary tract infection) ICD Codes: N39.0 - Urinary tract infection, site not specified SNOMED: 47921135 Qualifiers: Qualified Codes: N39.0 - Urinary tract infection, site not specified (7) Episode of generalized weakness ICD Codes: R53.1 - Weakness SNOMED: 88047094 Status: progressing Assessment/Plan dementia of alzheimer type no change dm htn vitals stable reviewed chart and labs and meds ams due to uti Subjective ROS Limited/Unobtainable: Yes Allergies: Coded Allergies: IODINE (Verified Allergy, Unknown, 11/10/17) Objective Last 24 Hour Vital Signs Date Time Temp Pulse Resp B/P (MAP) Pulse Ox O2 Delivery O2 Flow Rate FiO2 03/03/18 20:32 74 146/70 03/03/18 16:00 97.9 68 19 119/67 (84) 96 03/03/18 11:50 98.8 57 18 105/59 (74) 98 03/03/18 09:00 Room Air 03/03/18 08:21 74 138/90 03/03/18 08:21 74 138/90 03/03/18 08:00 97.2 74 20 138/90 (106) 98 03/03/18 05:43 97.5 68 17 137/88 (104) 96 03/03/18 05:42 97.5 68 17 137/88 (104) 03/03/18 04:00 97.5 68 17 137/88 (104) 96 03/03/18 00:00 97.8 82 17 140/93 (109) 95 Intake and Output 03/02/18 03/03/18 19:00 07:00 Intake Total 1020 ml 900 ml Balance 1020 ml 900 ml Intake Free Water 500 ml 500 ml Tube Feeding 520 ml 400 ml Laboratory Tests 03/03/18 16:50: C-Reactive Protein, Quantitative < 0.4 Height (Feet): 5 Height (Inches): 6.00 Weight (Pounds): 140 General Appearance: confused Cardiovascular: normal rate Respiratory/Chest: lungs clear Abdomen: soft Sampson Leggett MD Mar 03, 2018 21:42
--- NOTE | 2018-03-03 22:47 | General Progress Note ---
Assessment/Plan Problem List: (1) Toxic encephalopathy ICD Codes: G92 - Toxic encephalopathy SNOMED: 56350571 Status: stable Assessment/Plan risperdal 1mg po qhs cont lexapro 10mg qhs cont depakote the pt lacks capacity to make decisions. Subjective Neurologic/Psychiatric: Reports: anxiety Allergies: Coded Allergies: IODINE (Verified Allergy, Unknown, 11/10/17) Subjective the pt is stable at baseline no behavioral issues no agitation Objective Last 24 Hour Vital Signs Date Time Temp Pulse Resp B/P (MAP) Pulse Ox O2 Delivery O2 Flow Rate FiO2 03/03/18 21:00 Room Air 03/03/18 20:32 74 146/70 03/03/18 20:00 97.5 74 20 146/70 (95) 03/03/18 16:00 97.9 68 19 119/67 (84) 96 03/03/18 11:50 98.8 57 18 105/59 (74) 98 03/03/18 09:00 Room Air 03/03/18 08:21 74 138/90 03/03/18 08:21 74 138/90 03/03/18 08:00 97.2 74 20 138/90 (106) 98 03/03/18 05:43 97.5 68 17 137/88 (104) 96 03/03/18 05:42 97.5 68 17 137/88 (104) 03/03/18 04:00 97.5 68 17 137/88 (104) 96 03/03/18 00:00 97.8 82 17 140/93 (109) 95 Intake and Output 03/02/18 03/03/18 19:00 07:00 Intake Total 1020 ml 900 ml Balance 1020 ml 900 ml Intake Free Water 500 ml 500 ml Tube Feeding 520 ml 400 ml Laboratory Tests 03/03/18 16:50: C-Reactive Protein, Quantitative < 0.4 Height (Feet): 5 Height (Inches): 6.00 Weight (Pounds): 140 General Appearance: alert, confused, agitated Ramon Duke MD Mar 03, 2018 22:47
--- NOTE | 2018-03-03 22:48 | General Progress Note ---
Assessment/Plan Problem List: (1) Toxic encephalopathy ICD Codes: G92 - Toxic encephalopathy SNOMED: 18753862 Assessment/Plan risperdal 1mg po qhs cont lexapro 10mg qhs cont depakote the pt lacks capacity to make decisions. Subjective Date patient seen: Mar 02, 2018 Allergies: Coded Allergies: IODINE (Verified Allergy, Unknown, 11/10/17) Subjective the pt is stable at baseline no behavioral issues no agitation the family want [facility] Objective Last 24 Hour Vital Signs Date Time Temp Pulse Resp B/P (MAP) Pulse Ox O2 Delivery O2 Flow Rate FiO2 03/03/18 21:00 Room Air 03/03/18 20:32 74 146/70 03/03/18 20:00 97.5 74 20 146/70 (95) 03/03/18 16:00 97.9 68 19 119/67 (84) 96 03/03/18 11:50 98.8 57 18 105/59 (74) 98 03/03/18 09:00 Room Air 03/03/18 08:21 74 138/90 03/03/18 08:21 74 138/90 03/03/18 08:00 97.2 74 20 138/90 (106) 98 03/03/18 05:43 97.5 68 17 137/88 (104) 96 03/03/18 05:42 97.5 68 17 137/88 (104) 03/03/18 04:00 97.5 68 17 137/88 (104) 96 03/03/18 00:00 97.8 82 17 140/93 (109) 95 Intake and Output 03/02/18 03/03/18 19:00 07:00 Intake Total 1020 ml 900 ml Balance 1020 ml 900 ml Intake Free Water 500 ml 500 ml Tube Feeding 520 ml 400 ml Laboratory Tests 03/03/18 16:50: C-Reactive Protein, Quantitative < 0.4 Height (Feet): 5 Height (Inches): 6.00 Weight (Pounds): 140 Ramon Duke MD Mar 03, 2018 22:47
[2018-03-04] VITALS (7 sets, daily range): BP systolic 113–145; BP diastolic 60–70
[2018-03-04 06:01] LABS: BASOPHILS % (AUTO) 0.8 % (0.0-2.0); EOSINOPHILS % (AUTO) 1.7 % (0.0-3.0); HEMATOCRIT 41.1 % (37.0-47.0); HEMOGLOBIN 13.7 G/DL (12.0-16.0); LYMPHOCYTES % (AUTO) 31.3 % (20.0-45.0); MEAN CORPUSCULAR VOLUME 88 FL (80-99); MONOCYTES % (AUTO) 9.7 % (1.0-10.0); NEUTROPHILS % (AUTO) 56.6 % (45.0-75.0); PLATELET COUNT 113 K/UL (150-450); RED BLOOD COUNT 4.69 M/UL (4.20-5.40); RED CELL DISTRIBUTION WIDTH 14.1 % (11.6-14.8); WHITE BLOOD COUNT 5.8 K/UL (4.8-10.8)
[2018-03-04 06:21] LABS: ALANINE AMINOTRANSFERASE 25 U/L (12-78); ALBUMIN 2.7 G/DL (3.4-5.0); ALBUMIN/GLOBULIN RATIO 0.7 (1.0-2.7); ALKALINE PHOSPHATASE 39 U/L (46-116); ANION GAP 8 mmol/L (5-15); ASPARTATE AMINO TRANSFERASE 23 U/L (15-37); BILIRUBIN,TOTAL 0.1 MG/DL (0.2-1.0); BLOOD UREA NITROGEN 24 mg/dL (7-18); CALCIUM 9.8 MG/DL (8.5-10.1); CARBON DIOXIDE 27 MMOL/L (21-32); CHLORIDE 106 MMOL/L (98-107); CREATININE 0.8 MG/DL (0.55-1.30); PHOSPHORUS 3.6 MG/DL (2.5-4.9); POTASSIUM 4.5 MMOL/L (3.5-5.1); SODIUM 141 MMOL/L (136-145)
--- NOTE | 2018-03-04 07:29 | NUR ---
NURSE NOTES: Received pt from GUANACO BARRIENTOS. Pt is alert and orient x1. No SOB or acute respiratory distress noted. pt has intact iv access RH 20g HL. all needs attended, bed is locked and is in the lowest position, call light within easy reach. will continue to monitor.
[2018-03-04] MEDS: Carvedilol 6.25mg Tab GT SCH ×2 (09:00→21:18)
[2018-03-04] MEDS: Multivitamins W/Minerals 15 ML UDC GT SCH (09:07)
[2018-03-04] MEDS: Valproic Acid 250mg/5ml Liquid GT SCH ×2 (09:07→21:17)
--- NOTE | 2018-03-04 11:42 | Nephrology Progress Note ---
Assessment/Plan Problem List: (1) UTI (urinary tract infection) (2) Encephalopathy (3) HTN (hypertension) (4) Diabetes mellitus Assessment UTI h/o rapidly progressive dementia, ? Encephalitis mild HTN PEG mild elevation of A1c Plan Urine cultures neg antibiotics noted watch lytes adjust psychotropics per psych ! down on norvasc per orders not much to add from renal stand med surg ? Dc DC plascencia Subjective ROS Limited/Unobtainable: No Constitutional: Reports: malaise Objective Objective Last 24 Hour Vital Signs Date Time Temp Pulse Resp B/P (MAP) Pulse Ox O2 Delivery O2 Flow Rate FiO2 03/04/18 09:00 Room Air 03/04/18 09:00 55 127/65 03/04/18 09:00 55 127/65 03/04/18 08:00 98.1 55 16 127/65 (85) 95 03/04/18 05:22 98.1 51 20 113/66 (82) 03/04/18 04:00 98.1 51 20 113/66 (82) 03/04/18 00:00 98.7 68 20 137/67 (90) 03/03/18 21:00 Room Air 03/03/18 20:32 74 146/70 03/03/18 20:00 97.5 74 20 146/70 (95) 03/03/18 16:00 97.9 68 19 119/67 (84) 96 03/03/18 11:50 98.8 57 18 105/59 (74) 98 Intake and Output 03/03/18 03/04/18 18:59 06:59 Intake Total 1150 ml Output Total 200 ml Balance 950 ml Intake Free Water 750 ml Tube Feeding 400 ml Output Urine Total 200 ml Laboratory Tests 03/03/18 16:50: C-Reactive Protein, Quantitative < 0.4 03/04/18 04:55: White Blood Count 5.8, Red Blood Count 4.69, Hemoglobin 13.7, Hematocrit 41.1, Mean Corpuscular Volume 88, Mean Corpuscular Hemoglobin 29.2, Mean Corpuscular Hemoglobin Concent 33.3, Red Cell Distribution Width 14.1, Platelet Count 113L, Mean Platelet Volume 9.7, Neutrophils (%) (Auto) 56.6, Lymphocytes (%) (Auto) 31.3, Monocytes (%) (Auto) 9.7, Eosinophils (%) (Auto) 1.7, Basophils (%) (Auto ) 0.8, Sodium Level 141, Potassium Level 4.5, Chloride Level 106, Carbon Dioxide Level 27, Anion Gap 8, Blood Urea Nitrogen 24H, Creatinine 0.8, Estimat Glomerular Filtration Rate > 60, Glucose Level 102, Calcium Level 9.8, Phosphorus Level 3.6, Magnesium Level 2.5H, Total Bilirubin 0.1L, Aspartate Amino Transf (AST/SGOT) 23, Alanine Aminotransferase (ALT/SGPT) 25, Alkaline Phosphatase 39L, Pro-B-Type Natriuretic Peptide 81, Total Protein 6.5, Albumin 2.7L, Globulin 3.8, Albumin/Globulin Ratio 0.7L Height (Feet): 5 Height (Inches): 6.00 Weight (Pounds): 140 General Appearance: no apparent distress Objective no change Nahum Connolly MD Mar 04, 2018 11:42
--- NOTE | 2018-03-04 11:43 | Infectious Diseases Prog Note ---
Assessment/Plan Assessment/Plan A; Pyuria, UTI treated AMS VRE colonization Dementia, P; Observe off antibiotic Subjective ROS Limited/Unobtainable: Yes Allergies: Coded Allergies: IODINE (Verified Allergy, Unknown, 11/10/17) Objective Vital Signs Last 24 Hour Vital Signs Date Time Temp Pulse Resp B/P (MAP) Pulse Ox O2 Delivery O2 Flow Rate FiO2 03/04/18 09:00 Room Air 03/04/18 09:00 55 127/65 03/04/18 09:00 55 127/65 03/04/18 08:00 98.1 55 16 127/65 (85) 95 03/04/18 05:22 98.1 51 20 113/66 (82) 03/04/18 04:00 98.1 51 20 113/66 (82) 03/04/18 00:00 98.7 68 20 137/67 (90) 03/03/18 21:00 Room Air 03/03/18 20:32 74 146/70 03/03/18 20:00 97.5 74 20 146/70 (95) 03/03/18 16:00 97.9 68 19 119/67 (84) 96 03/03/18 11:50 98.8 57 18 105/59 (74) 98 Height (Feet): 5 Height (Inches): 6.00 Weight (Pounds): 140 General Appearance: no acute distress HEENT: mucous membranes moist Respiratory/Chest: lungs clear Cardiovascular: normal rate Abdomen: soft, non tender, other - GT feeding Extremities: no edema Neurologic/Psychiatric: aphasia Laboratory Tests Test 03/03/18 16:50 03/04/18 04:55 C-Reactive Protein, Quantitative < 0.4 mg/dL (0.00-0.90) White Blood Count 5.8 K/UL (4.8-10.8) Red Blood Count 4.69 M/UL (4.20-5.40) Hemoglobin 13.7 G/DL (12.0-16.0) Hematocrit 41.1 % (37.0-47.0) Mean Corpuscular Volume 88 FL (80-99) Mean Corpuscular Hemoglobin 29.2 PG (27.0-31.0) Mean Corpuscular Hemoglobin Concent 33.3 G/DL (32.0-36.0) Red Cell Distribution Width 14.1 % (11.6-14.8) Platelet Count 113 K/UL (150-450) L Mean Platelet Volume 9.7 FL (6.5-10.1) Neutrophils (%) (Auto) 56.6 % (45.0-75.0) Lymphocytes (%) (Auto) 31.3 % (20.0-45.0) Monocytes (%) (Auto) 9.7 % (1.0-10.0) Eosinophils (%) (Auto) 1.7 % (0.0-3.0) Basophils (%) (Auto) 0.8 % (0.0-2.0) Sodium Level 141 MMOL/L (136-145) Potassium Level 4.5 MMOL/L (3.5-5.1) Chloride Level 106 MMOL/L (98-107) Carbon Dioxide Level 27 MMOL/L (21-32) Anion Gap 8 mmol/L (5-15) Blood Urea Nitrogen 24 mg/dL (7-18) H Creatinine 0.8 MG/DL (0.55-1.30) Estimat Glomerular Filtration Rate > 60 mL/min (>60) Glucose Level 102 MG/DL (74-106) Calcium Level 9.8 MG/DL (8.5-10.1) Phosphorus Level 3.6 MG/DL (2.5-4.9) Magnesium Level 2.5 MG/DL (1.8-2.4) H Total Bilirubin 0.1 MG/DL (0.2-1.0) L Aspartate Amino Transf (AST/SGOT) 23 U/L (15-37) Alanine Aminotransferase (ALT/SGPT) 25 U/L (12-78) Alkaline Phosphatase 39 U/L (46-116) L Pro-B-Type Natriuretic Peptide 81 pg/mL (0-125) Total Protein 6.5 G/DL (6.4-8.2) Albumin 2.7 G/DL (3.4-5.0) L Globulin 3.8 g/dL Albumin/Globulin Ratio 0.7 (1.0-2.7) L Current Medications Medications (Trade) Dose Ordered Sig/Claritza Route PRN Reason Start Time Stop Time Status Last Admin Dose Admin Acetaminophen (Tylenol) 650 mg Q4H PRN GT For Pain 02/28/18 17:00 03/27/18 16:59 Amlodipine Besylate (Norvasc) 2.5 mg DAILY GT 03/02/18 09:00 03/29/18 08:59 03/03/18 08:21 Carvedilol (Coreg) 6.25 mg EVERY 12 HOURS GT 03/01/18 21:00 03/27/18 08:59 03/03/18 20:32 Escitalopram Oxalate (Lexapro) 10 mg DAILY GT 03/01/18 09:00 03/27/18 08:59 03/04/18 09:07 Lansoprazole (Prevacid) 30 mg DAILY GT 03/01/18 09:00 03/27/18 08:59 03/04/18 09:08 Multivitamins (Multivitamins W/ Minerals 15ml Liquid) 15 ml DAILY GT 03/01/18 09:00 03/27/18 08:59 03/04/18 09:07 Polyethylene Glycol (Miralax) 17 gm BEDTIME GT 02/28/18 21:00 03/27/18 20:59 03/03/18 20:32 Pravastatin Sodium (Pravachol) 80 mg BEDTIME GT 02/28/18 21:00 03/27/18 20:59 03/03/18 20:33 Risperidone (RisperDAL) 1 mg BID GT 02/28/18 18:00 03/27/18 08:59 03/04/18 09:10 Valproic Acid (Depakene) 500 mg EVERY 12 HOURS GT 02/28/18 21:00 03/28/18 08:59 03/04/18 09:07 Kevon Thurston MD Mar 04, 2018 11:43
--- NOTE | 2018-03-04 16:50 | NUR ---
Social Service Note TRAV met with patient's as he had questions regarding conservatorship. TRAV provided necessary forms to be completed by MD. SW also provide self-help resource centers to assist patient. indicated he was going to hire an transactional attorney but was pleased with the information provided by TRAV. Patient is pending auth from insurance for placement back at SNF. Will continue to be available as needed.
--- NOTE | 2018-03-04 19:18 | NUR ---
HAND-OFF: Report given to GUANACO PEDROZA.
--- NOTE | 2018-03-04 19:40 | NUR ---
NURSE NOTES: Received report from GUANACO Torres. Patient A&Ox1. In bed. On room air, no signs of distress or labored breathing. IV intact, patent, and saline locked. G-tube intact, patent, and infusing feeding. HOB at least 30 degrees, in lowest position with call light in reach. Will continue to monitor.
--- NOTE | 2018-03-04 21:14 | General Progress Note ---
Assessment/Plan Problem List: (1) Encephalopathy ICD Codes: G93.40 - Encephalopathy SNOMED: 87410921 (2) Constipation ICD Codes: K59.00 - Constipation, unspecified SNOMED: 41084795 (3) Altered level of consciousness ICD Codes: R40.4 - Transient alteration of awareness SNOMED: 3649680 (4) HTN (hypertension) ICD Codes: I10 - Essential (primary) hypertension SNOMED: 60694555 (5) Diabetes mellitus ICD Codes: E11.9 - Type 2 diabetes mellitus without complications SNOMED: 32943953 (6) UTI (urinary tract infection) ICD Codes: N39.0 - Urinary tract infection, site not specified SNOMED: 53398301 Qualifiers: Qualified Codes: N39.0 - Urinary tract infection, site not specified (7) Episode of generalized weakness ICD Codes: R53.1 - Weakness SNOMED: 97795258 Status: progressing Status Narrative afebrile encephalopathy uti imrpoved awaiting placement confused dementia adcanced Assessment/Plan dementia of alzheimer type no change dm htn vitals stable reviewed chart and labs and meds ams due to uti Subjective ROS Limited/Unobtainable: Yes Allergies: Coded Allergies: IODINE (Verified Allergy, Unknown, 11/10/17) Objective Last 24 Hour Vital Signs Date Time Temp Pulse Resp B/P (MAP) Pulse Ox O2 Delivery O2 Flow Rate FiO2 03/04/18 16:00 98.9 57 16 126/61 (82) 97 03/04/18 12:00 98.2 53 16 121/60 (80) 96 03/04/18 09:00 Room Air 03/04/18 09:00 55 127/65 03/04/18 09:00 55 127/65 03/04/18 08:00 98.1 55 16 127/65 (85) 95 03/04/18 05:22 98.1 51 20 113/66 (82) 03/04/18 04:00 98.1 51 20 113/66 (82) 03/04/18 00:00 98.7 68 20 137/67 (90) Intake and Output 03/03/18 03/04/18 19:00 07:00 Intake Total 1190 ml Output Total 200 ml Balance 990 ml Intake Free Water 750 ml Tube Feeding 440 ml Output Urine Total 200 ml Laboratory Tests 03/04/18 04:55: White Blood Count 5.8, Red Blood Count 4.69, Hemoglobin 13.7, Hematocrit 41.1, Mean Corpuscular Volume 88, Mean Corpuscular Hemoglobin 29.2, Mean Corpuscular Hemoglobin Concent 33.3, Red Cell Distribution Width 14.1, Platelet Count 113L, Mean Platelet Volume 9.7, Neutrophils (%) (Auto) 56.6, Lymphocytes (%) (Auto) 31.3, Monocytes (%) (Auto) 9.7, Eosinophils (%) (Auto) 1.7, Basophils (%) (Auto ) 0.8, Sodium Level 141, Potassium Level 4.5, Chloride Level 106, Carbon Dioxide Level 27, Anion Gap 8, Blood Urea Nitrogen 24H, Creatinine 0.8, Estimat Glomerular Filtration Rate > 60, Glucose Level 102, Calcium Level 9.8, Phosphorus Level 3.6, Magnesium Level 2.5H, Total Bilirubin 0.1L, Aspartate Amino Transf (AST/SGOT) 23, Alanine Aminotransferase (ALT/SGPT) 25, Alkaline Phosphatase 39L, Pro-B-Type Natriuretic Peptide 81, Total Protein 6.5, Albumin 2.7L, Globulin 3.8, Albumin/Globulin Ratio 0.7L Height (Feet): 5 Height (Inches): 6.00 Weight (Pounds): 140 Cardiovascular: normal rate Respiratory/Chest: lungs clear Abdomen: soft Sampson Leggett MD Mar 04, 2018 21:14
[2018-03-04] MEDS: Miralax 17gm pkt GT SCH (21:19)
--- NOTE | 2018-03-04 23:26 | General Progress Note ---
Assessment/Plan Problem List: (1) Toxic encephalopathy ICD Codes: G92 - Toxic encephalopathy SNOMED: 17751962 Status: stable, progressing Assessment/Plan risperdal 1mg po qhs cont lexapro 10mg qhs cont depakote the pt lacks capacity to make decisions. Subjective Neurologic/Psychiatric: Reports: anxiety, depressed Allergies: Coded Allergies: IODINE (Verified Allergy, Unknown, 11/10/17) Subjective the pt is stable at baseline no behavioral issues no agitation the at bedside Objective Last 24 Hour Vital Signs Date Time Temp Pulse Resp B/P (MAP) Pulse Ox O2 Delivery O2 Flow Rate FiO2 03/04/18 21:18 90 145/70 03/04/18 16:00 98.9 57 16 126/61 (82) 97 03/04/18 12:00 98.2 53 16 121/60 (80) 96 03/04/18 09:00 Room Air 03/04/18 09:00 55 127/65 03/04/18 09:00 55 127/65 03/04/18 08:00 98.1 55 16 127/65 (85) 95 03/04/18 05:22 98.1 51 20 113/66 (82) 03/04/18 04:00 98.1 51 20 113/66 (82) 03/04/18 00:00 98.7 68 20 137/67 (90) Intake and Output 03/03/18 03/04/18 19:00 07:00 Intake Total 1190 ml Output Total 200 ml Balance 990 ml Intake Free Water 750 ml Tube Feeding 440 ml Output Urine Total 200 ml Laboratory Tests 03/04/18 04:55: White Blood Count 5.8, Red Blood Count 4.69, Hemoglobin 13.7, Hematocrit 41.1, Mean Corpuscular Volume 88, Mean Corpuscular Hemoglobin 29.2, Mean Corpuscular Hemoglobin Concent 33.3, Red Cell Distribution Width 14.1, Platelet Count 113L, Mean Platelet Volume 9.7, Neutrophils (%) (Auto) 56.6, Lymphocytes (%) (Auto) 31.3, Monocytes (%) (Auto) 9.7, Eosinophils (%) (Auto) 1.7, Basophils (%) (Auto ) 0.8, Sodium Level 141, Potassium Level 4.5, Chloride Level 106, Carbon Dioxide Level 27, Anion Gap 8, Blood Urea Nitrogen 24H, Creatinine 0.8, Estimat Glomerular Filtration Rate > 60, Glucose Level 102, Calcium Level 9.8, Phosphorus Level 3.6, Magnesium Level 2.5H, Total Bilirubin 0.1L, Aspartate Amino Transf (AST/SGOT) 23, Alanine Aminotransferase (ALT/SGPT) 25, Alkaline Phosphatase 39L, Pro-B-Type Natriuretic Peptide 81, Total Protein 6.5, Albumin 2.7L, Globulin 3.8, Albumin/Globulin Ratio 0.7L Height (Feet): 5 Height (Inches): 6.00 Weight (Pounds): 140 General Appearance: no apparent distress, alert, confused Ramon Duke MD Mar 04, 2018 23:26
[2018-03-05] VITALS: BP 123/83
[2018-03-05 04:00] VITALS: BP 112/76
--- NOTE | 2018-03-05 07:47 | NUR ---
NURSE NOTES: Received pt from GUANACO PEDROZA. Pt is confuse and orient x1. No SOB or acute respiratory distress noted. pt has intact iv access RH 20g HL. pt has g tube in place is running well. all needs attended, bed is locked and is in the lowest position, call light within easy reach. will continue to monitor.
--- NOTE | 2018-03-05 07:54 | NUR ---
HAND-OFF: Report given to GUANACO Torrse.
[2018-03-05 08:00] VITALS: BP 117/49
[2018-03-05] MEDS: Valproic Acid 250mg/5ml Liquid GT SCH ×2 (08:46→22:14)
[2018-03-05] MEDS: Multivitamins W/Minerals 15 ML UDC GT SCH (08:47)
[2018-03-05] MEDS: Carvedilol 6.25mg Tab GT SCH ×2 (08:47→22:21)
[2018-03-05 12:00] VITALS: BP 130/54
--- NOTE | 2018-03-05 14:03 | Infectious Diseases Prog Note ---
Assessment/Plan Assessment/Plan A; Pyuria, UTI treated AMS VRE colonization Dementia, P; Observe off antibiotic Wsiting for placement Subjective ROS Limited/Unobtainable: Yes Constitutional: Reports: no symptoms Allergies: Coded Allergies: IODINE (Verified Allergy, Unknown, 11/10/17) Objective Vital Signs Last 24 Hour Vital Signs Date Time Temp Pulse Resp B/P (MAP) Pulse Ox O2 Delivery O2 Flow Rate FiO2 03/05/18 12:00 98.2 68 18 130/54 (79) 97 03/05/18 09:00 Room Air 03/05/18 08:47 54 117/49 03/05/18 08:00 97.5 54 18 117/49 (71) 99 03/05/18 04:00 97.7 93 20 112/76 (88) 98 03/05/18 00:00 98.4 83 19 123/83 (96) 97 03/04/18 21:18 90 145/70 03/04/18 21:00 Room Air 03/04/18 20:00 99.1 90 19 145/70 (95) 100 03/04/18 16:00 98.9 57 16 126/61 (82) 97 Height (Feet): 5 Height (Inches): 6.00 Weight (Pounds): 140 General Appearance: no acute distress HEENT: mucous membranes moist Respiratory/Chest: lungs clear Cardiovascular: normal rate Abdomen: soft, non tender, other - GT feeding Extremities: no edema Neurologic/Psychiatric: other - mostly sleeping Current Medications Medications (Trade) Dose Ordered Sig/Claritza Route PRN Reason Start Time Stop Time Status Last Admin Dose Admin Acetaminophen (Tylenol) 650 mg Q4H PRN GT For Pain 02/28/18 17:00 03/27/18 16:59 Amlodipine Besylate (Norvasc) 2.5 mg DAILY GT 03/02/18 09:00 03/29/18 08:59 03/03/18 08:21 Carvedilol (Coreg) 6.25 mg EVERY 12 HOURS GT 03/01/18 21:00 03/27/18 08:59 03/04/18 21:18 Escitalopram Oxalate (Lexapro) 10 mg DAILY GT 03/01/18 09:00 03/27/18 08:59 03/05/18 08:46 Lansoprazole (Prevacid) 30 mg DAILY GT 03/01/18 09:00 03/27/18 08:59 03/05/18 08:46 Multivitamins (Multivitamins W/ Minerals 15ml Liquid) 15 ml DAILY GT 03/01/18 09:00 03/27/18 08:59 03/05/18 08:47 Polyethylene Glycol (Miralax) 17 gm BEDTIME GT 02/28/18 21:00 03/27/18 20:59 03/04/18 21:19 Pravastatin Sodium (Pravachol) 80 mg BEDTIME GT 02/28/18 21:00 03/27/18 20:59 03/04/18 21:17 Risperidone (RisperDAL) 1 mg BID GT 02/28/18 18:00 03/27/18 08:59 03/05/18 08:46 Valproic Acid (Depakene) 500 mg EVERY 12 HOURS GT 02/28/18 21:00 03/28/18 08:59 03/05/18 08:46 Kevon Thurston MD Mar 05, 2018 14:03
--- NOTE | 2018-03-05 15:15 | General Progress Note ---
Assessment/Plan Problem List: (1) Toxic encephalopathy ICD Codes: G92 - Toxic encephalopathy SNOMED: 85233408 Status: unchanged Assessment/Plan risperdal 1mg po qhs cont lexapro 10mg qhs cont depakote the pt lacks capacity to make decisions. Subjective Neurologic/Psychiatric: Reports: anxiety Allergies: Coded Allergies: IODINE (Verified Allergy, Unknown, 11/10/17) Subjective the pt is stable at baseline no behavioral issues no agitation inquire to filled out the form per cn the forms were non in the chart Objective Last 24 Hour Vital Signs Date Time Temp Pulse Resp B/P (MAP) Pulse Ox O2 Delivery O2 Flow Rate FiO2 03/05/18 12:00 98.2 68 18 130/54 (79) 97 03/05/18 09:00 Room Air 03/05/18 08:47 54 117/49 03/05/18 08:00 97.5 54 18 117/49 (71) 99 03/05/18 04:00 97.7 93 20 112/76 (88) 98 03/05/18 00:00 98.4 83 19 123/83 (96) 97 03/04/18 21:18 90 145/70 03/04/18 21:00 Room Air 03/04/18 20:00 99.1 90 19 145/70 (95) 100 03/04/18 16:00 98.9 57 16 126/61 (82) 97 Intake and Output 03/04/18 03/05/18 18:59 06:59 Intake Total 440 ml 730 ml Output Total 200 ml Balance 440 ml 530 ml Intake Free Water 250 ml Tube Feeding 440 ml 480 ml Output Urine Total 200 ml Height (Feet): 5 Height (Inches): 6.00 Weight (Pounds): 140 General Appearance: WD/WN, no apparent distress, alert, confused, overweight Ramon Duke MD Mar 05, 2018 15:15
--- NOTE | 2018-03-05 15:40 | Nephrology Progress Note ---
Assessment/Plan Problem List: (1) UTI (urinary tract infection) (2) Encephalopathy (3) HTN (hypertension) (4) Diabetes mellitus Assessment UTI h/o rapidly progressive dementia, ? Encephalitis mild HTN PEG mild elevation of A1c Plan Urine cultures neg antibiotics noted watch lytes adjust psychotropics per psych ! down on norvasc per orders not much to add from renal stand med surg ? Dc DC plascencia Subjective ROS Limited/Unobtainable: No Constitutional: Reports: malaise Objective Objective Last 24 Hour Vital Signs Date Time Temp Pulse Resp B/P (MAP) Pulse Ox O2 Delivery O2 Flow Rate FiO2 03/05/18 12:00 98.2 68 18 130/54 (79) 97 03/05/18 09:00 Room Air 03/05/18 08:47 54 117/49 03/05/18 08:00 97.5 54 18 117/49 (71) 99 03/05/18 04:00 97.7 93 20 112/76 (88) 98 03/05/18 00:00 98.4 83 19 123/83 (96) 97 03/04/18 21:18 90 145/70 03/04/18 21:00 Room Air 03/04/18 20:00 99.1 90 19 145/70 (95) 100 03/04/18 16:00 98.9 57 16 126/61 (82) 97 Intake and Output 03/04/18 03/05/18 19:00 07:00 Intake Total 440 ml 690 ml Output Total 200 ml Balance 440 ml 490 ml Intake Free Water 250 ml Tube Feeding 440 ml 440 ml Output Urine Total 200 ml Height (Feet): 5 Height (Inches): 6.00 Weight (Pounds): 140 General Appearance: no apparent distress Respiratory/Chest: lungs clear Abdomen: soft Objective no change Nahum Connolly MD Mar 05, 2018 15:40
[2018-03-05 16:00] VITALS: BP 110/49
--- NOTE | 2018-03-05 17:13 | NUR ---
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 97.9 HR 51 RR 18 B/P 110/49 RA 98% IS: PREVACID PO LEXAPRO PO PLACEMENT PENDING MED/SURG STATUS
--- NOTE | 2018-03-05 17:14 | NUR ---
RENAL DIALYSIS RN NOTES SPOKE WITH [facility] FROM [facility] INPT STAY AUTHORIZED. SNF PLACEMENT DECLINED DUE TO NO SKILL NEED PER INSURANCE. SPOKE WITH OMKAR FROM [facility] UNABLE TO ACCEPT THE PT, STATED SHE WAS ON THE PHONE WITH [facility] FOR AUTHORIZATION. WILL FOLLOW UP.
[2018-03-05 20:00] VITALS: BP 149/126
--- NOTE | 2018-03-05 20:00 | NUR ---
HAND-OFF: Report given to GUANACO PEDROZA.
--- NOTE | 2018-03-05 20:17 | NUR ---
NURSE NOTES: Received report from GUANACO Torres. Patient sleeping. No signs of distress or labored breathing. G-tube intact, patent, and infusing feeding. family at the bed side. Bed at least 30 degrees in lowest position with call light in reach. Will continue to monitor.
--- NOTE | 2018-03-05 21:31 | General Progress Note ---
Assessment/Plan Problem List: (1) Encephalopathy ICD Codes: G93.40 - Encephalopathy SNOMED: 92967105 (2) Constipation ICD Codes: K59.00 - Constipation, unspecified SNOMED: 31742425 (3) Altered level of consciousness ICD Codes: R40.4 - Transient alteration of awareness SNOMED: 2710714 (4) HTN (hypertension) ICD Codes: I10 - Essential (primary) hypertension SNOMED: 81753437 (5) Diabetes mellitus ICD Codes: E11.9 - Type 2 diabetes mellitus without complications SNOMED: 96667214 (6) UTI (urinary tract infection) ICD Codes: N39.0 - Urinary tract infection, site not specified SNOMED: 61714267 Qualifiers: Qualified Codes: N39.0 - Urinary tract infection, site not specified (7) Episode of generalized weakness ICD Codes: R53.1 - Weakness SNOMED: 40893546 Status: progressing Assessment/Plan dementia of alzheimer type no change dm htn ams due to uti improved placement issue reviewed chart and labs Subjective ROS Limited/Unobtainable: Yes Constitutional: Reports: no symptoms Allergies: Coded Allergies: IODINE (Verified Allergy, Unknown, 11/10/17) Objective Last 24 Hour Vital Signs Date Time Temp Pulse Resp B/P (MAP) Pulse Ox O2 Delivery O2 Flow Rate FiO2 03/05/18 16:00 97.9 51 18 110/49 (69) 99 03/05/18 12:00 98.2 68 18 130/54 (79) 97 03/05/18 09:00 Room Air 03/05/18 08:47 54 117/49 03/05/18 08:00 97.5 54 18 117/49 (71) 99 03/05/18 04:00 97.7 93 20 112/76 (88) 98 03/05/18 00:00 98.4 83 19 123/83 (96) 97 Intake and Output 03/04/18 03/05/18 19:00 07:00 Intake Total 440 ml 690 ml Output Total 200 ml Balance 440 ml 490 ml Intake Free Water 250 ml Tube Feeding 440 ml 440 ml Output Urine Total 200 ml Height (Feet): 5 Height (Inches): 6.00 Weight (Pounds): 140 Cardiovascular: normal rate Respiratory/Chest: lungs clear Abdomen: soft Sampson Leggett MD Mar 05, 2018 21:31
[2018-03-05] MEDS: Miralax 17gm pkt GT SCH (22:16)
[2018-03-06] VITALS: BP 127/74
[2018-03-06 04:00] VITALS: BP 108/63
--- NOTE | 2018-03-06 07:35 | NUR ---
NURSE NOTES: Received patient on bed, awake. IV site intact and patent. Gtube intact and patent. Purewick on patient. Bed in low and locked position, call light within reach. No signs of respiratory distress or pain. Room board updated. Will continue to monitor patient.
--- NOTE | 2018-03-06 07:36 | NUR ---
HAND-OFF: Report given to GUANACO Sutton.
[2018-03-06 08:00] VITALS: BP 146/85
--- NOTE | 2018-03-06 08:16 | NUR ---
RD ASSESSMENT & RECOMMENDATIONS SEE CARE ACTIVITY FOR COMPLETE ASSESSMENT DAILY ESTIMATED NEEDS: Needs based on pre-DM/ 55.5kg abw 25-30 kcals/kg 6298-6107 total kcals 1-1.2 g protein/kg 56-67 g total protein 25-30 mL/kg 8329-6537 total fluid mLs NUTRITION DIAGNOSIS: *Swallowing difficulty R/T dysphagia as evidenced by pt on GT feeding. *Altered nutrition related lab values R/T prediabetes as evidenced by elev A1C, increased from 6.0 on 11/11/17-> 6.2 on 02/25/18 CURRENT TF:Glucerna 1.5 @ 40ml/hr x 24 hrs ENTERAL NUTRITION RECOMMENDATIONS: Glucerna 1.5 @ 40ml/hr x 24 hrs to provide 960ml, 1440kcal, 79g prot, 728 ml free water - Continue current TF order as ordered-> meets 100% est kcal/prot needs - Flush per MD/ HOB over 30 degrees ADDITIONAL RECOMMENDATIONS: * Monitor lytes, replete as needed * Monitor BGs, need for hypoglycemic agent * Calibrated bedscale wt for accurate CBW . . . .
[2018-03-06] MEDS: Carvedilol 6.25mg Tab GT SCH ×2 (08:43→21:00)
[2018-03-06] MEDS: Multivitamins W/Minerals 15 ML UDC GT SCH (08:44)
[2018-03-06] MEDS: Valproic Acid 250mg/5ml Liquid GT SCH ×2 (08:44→21:14)
[2018-03-06 12:00] VITALS: BP 105/55
--- NOTE | 2018-03-06 12:17 | Nephrology Progress Note ---
Assessment/Plan Problem List: (1) UTI (urinary tract infection) (2) Encephalopathy (3) HTN (hypertension) (4) Diabetes mellitus Assessment UTI h/o rapidly progressive dementia, ? Encephalitis mild HTN PEG mild elevation of A1c Plan Urine cultures neg antibiotics noted watch lytes adjust psychotropics per psych ! down on norvasc per orders not much to add from renal stand med surg ? Dc DC plascencia Subjective ROS Limited/Unobtainable: No Objective Objective Last 24 Hour Vital Signs Date Time Temp Pulse Resp B/P (MAP) Pulse Ox O2 Delivery O2 Flow Rate FiO2 03/06/18 09:00 Room Air 03/06/18 08:43 82 146/85 03/06/18 08:43 82 146/85 03/06/18 08:00 96.1 82 20 146/85 (105) 95 03/06/18 04:00 98.1 61 20 108/63 (78) 95 03/06/18 00:00 97.7 71 20 127/74 (91) 94 03/05/18 22:21 82 149/126 03/05/18 21:00 Room Air 03/05/18 20:00 98.2 82 20 149/126 (134) 96 03/05/18 16:00 97.9 51 18 110/49 (69) 99 Intake and Output 03/05/18 03/06/18 19:00 07:00 Intake Total 40 ml 980 ml Balance 40 ml 980 ml Intake Free Water 500 ml Tube Feeding 40 ml 480 ml # Voids 3 # Bowel Movements 2 Height (Feet): 5 Height (Inches): 6.00 Weight (Pounds): 140 General Appearance: no apparent distress Objective no change Nahum Connolly MD Mar 06, 2018 12:17
--- NOTE | 2018-03-06 15:14 | Infectious Diseases Prog Note ---
Assessment/Plan Assessment/Plan antibiotics : none A 1. UTI s/p rx 2. dementia 3. rectal VRE colonization 4. diabetes mellitus P 1. continue off antibiotics Subjective ROS Limited/Unobtainable: Yes Allergies: Coded Allergies: IODINE (Verified Allergy, Unknown, 11/10/17) Objective Vital Signs Last 24 Hour Vital Signs Date Time Temp Pulse Resp B/P (MAP) Pulse Ox O2 Delivery O2 Flow Rate FiO2 03/06/18 12:00 98.1 65 18 105/55 (72) 96 03/06/18 09:00 Room Air 03/06/18 08:43 82 146/85 03/06/18 08:43 82 146/85 03/06/18 08:00 96.1 82 20 146/85 (105) 95 03/06/18 04:00 98.1 61 20 108/63 (78) 95 03/06/18 00:00 97.7 71 20 127/74 (91) 94 03/05/18 22:21 82 149/126 03/05/18 21:00 Room Air 03/05/18 20:00 98.2 82 20 149/126 (134) 96 03/05/18 16:00 97.9 51 18 110/49 (69) 99 Height (Feet): 5 Height (Inches): 6.00 Weight (Pounds): 140 Respiratory/Chest: lungs clear Cardiovascular: normal rate, regular rhythm, no gallop/murmur Abdomen: soft, non tender Extremities: no edema Current Medications Medications (Trade) Dose Ordered Sig/Claritza Route PRN Reason Start Time Stop Time Status Last Admin Dose Admin Acetaminophen (Tylenol) 650 mg Q4H PRN GT For Pain 02/28/18 17:00 03/27/18 16:59 Amlodipine Besylate (Norvasc) 2.5 mg DAILY GT 03/02/18 09:00 03/29/18 08:59 03/06/18 08:43 Carvedilol (Coreg) 6.25 mg EVERY 12 HOURS GT 03/01/18 21:00 03/27/18 08:59 03/06/18 08:43 Escitalopram Oxalate (Lexapro) 10 mg DAILY GT 03/01/18 09:00 03/27/18 08:59 03/06/18 08:43 Lansoprazole (Prevacid) 30 mg DAILY GT 03/01/18 09:00 03/27/18 08:59 03/06/18 08:43 Multivitamins (Multivitamins W/ Minerals 15ml Liquid) 15 ml DAILY GT 03/01/18 09:00 03/27/18 08:59 03/06/18 08:44 Polyethylene Glycol (Miralax) 17 gm BEDTIME GT 02/28/18 21:00 03/27/18 20:59 03/05/18 22:16 Pravastatin Sodium (Pravachol) 80 mg BEDTIME GT 02/28/18 21:00 03/27/18 20:59 03/05/18 22:15 Risperidone (RisperDAL) 1 mg BID GT 02/28/18 18:00 03/27/18 08:59 03/06/18 08:44 Valproic Acid (Depakene) 500 mg EVERY 12 HOURS GT 02/28/18 21:00 03/28/18 08:59 03/06/18 08:44 Radha Dunham MD Mar 06, 2018 15:14
[2018-03-06 16:00] VITALS: BP 109/56
--- NOTE | 2018-03-06 19:09 | General Progress Note ---
Assessment/Plan Problem List: (1) Encephalopathy ICD Codes: G93.40 - Encephalopathy SNOMED: 12562479 (2) Constipation ICD Codes: K59.00 - Constipation, unspecified SNOMED: 43940173 (3) Altered level of consciousness ICD Codes: R40.4 - Transient alteration of awareness SNOMED: 4497705 (4) HTN (hypertension) ICD Codes: I10 - Essential (primary) hypertension SNOMED: 05619816 (5) Diabetes mellitus ICD Codes: E11.9 - Type 2 diabetes mellitus without complications SNOMED: 30706059 (6) UTI (urinary tract infection) ICD Codes: N39.0 - Urinary tract infection, site not specified SNOMED: 94176136 Qualifiers: Qualified Codes: N39.0 - Urinary tract infection, site not specified (7) Episode of generalized weakness ICD Codes: R53.1 - Weakness SNOMED: 81870151 Status: progressing Assessment/Plan not agitated no acute changes vitals stable dm htn ams due to uti improved placement issue reviewed chart and labs Subjective ROS Limited/Unobtainable: Yes Allergies: Coded Allergies: IODINE (Verified Allergy, Unknown, 11/10/17) Objective Last 24 Hour Vital Signs Date Time Temp Pulse Resp B/P (MAP) Pulse Ox O2 Delivery O2 Flow Rate FiO2 03/06/18 16:00 98.1 74 20 109/56 (73) 97 03/06/18 12:00 98.1 65 18 105/55 (72) 96 03/06/18 09:00 Room Air 03/06/18 08:43 82 146/85 03/06/18 08:43 82 146/85 03/06/18 08:00 96.1 82 20 146/85 (105) 95 03/06/18 04:00 98.1 61 20 108/63 (78) 95 03/06/18 00:00 97.7 71 20 127/74 (91) 94 03/05/18 22:21 82 149/126 03/05/18 21:00 Room Air 03/05/18 20:00 98.2 82 20 149/126 (134) 96 Intake and Output 03/05/18 03/06/18 19:00 07:00 Intake Total 40 ml 980 ml Balance 40 ml 980 ml Intake Free Water 500 ml Tube Feeding 40 ml 480 ml # Voids 3 # Bowel Movements 2 Height (Feet): 5 Height (Inches): 6.00 Weight (Pounds): 140 Neck: supple Cardiovascular: normal rate Respiratory/Chest: lungs clear Abdomen: soft Sampson Leggett MD Mar 06, 2018 19:09
--- NOTE | 2018-03-06 19:28 | NUR ---
HAND-OFF: Report given to GUANACO Balbuena.
--- NOTE | 2018-03-06 19:30 | NUR ---
NURSE NOTES: Patient asleep in bed, no signs of pain, not in acute respiratory distress. With Gtube intact and patent connected to feeding. Call light in reach. Bed in lowest position, lock engaged and alarm on. Will continue to monitor.
[2018-03-06 20:00] VITALS: BP 109/65
[2018-03-06] MEDS: Miralax 17gm pkt GT SCH (21:15)
--- NOTE | 2018-03-06 22:16 | General Progress Note ---
Assessment/Plan Assessment/Plan Assessment ASTP for GT occlusion - cleared Encephalopathy dysphagia HTN DM Recommendations continue TF GT flushes Elevate HOB will follow Thank you Marshal Jin MD Subjective Allergies: Coded Allergies: IODINE (Verified Allergy, Unknown, 11/10/17) Objective Last 24 Hour Vital Signs Date Time Temp Pulse Resp B/P (MAP) Pulse Ox O2 Delivery O2 Flow Rate FiO2 03/06/18 21:00 Room Air 03/06/18 21:00 73 109/65 03/06/18 20:00 98.2 73 20 109/65 (80) 94 03/06/18 16:00 98.1 74 20 109/56 (73) 97 03/06/18 12:00 98.1 65 18 105/55 (72) 96 03/06/18 09:00 Room Air 03/06/18 08:43 82 146/85 03/06/18 08:43 82 146/85 03/06/18 08:00 96.1 82 20 146/85 (105) 95 03/06/18 04:00 98.1 61 20 108/63 (78) 95 03/06/18 00:00 97.7 71 20 127/74 (91) 94 03/05/18 22:21 82 149/126 Intake and Output 03/05/18 03/06/18 18:59 06:59 Intake Total 980 ml Balance 980 ml Intake Free Water 500 ml Tube Feeding 480 ml # Voids 3 # Bowel Movements 2 Height (Feet): 5 Height (Inches): 6.00 Weight (Pounds): 140 Marshal Jin MD Mar 06, 2018 22:16
--- NOTE | 2018-03-06 23:46 | General Progress Note ---
Assessment/Plan Problem List: (1) Toxic encephalopathy ICD Codes: G92 - Toxic encephalopathy SNOMED: 67967273 Assessment/Plan risperdal 1mg po qhs cont lexapro 10mg qhs cont depakote the pt lacks capacity to make decisions. Subjective Neurologic/Psychiatric: Reports: anxiety, depressed, emotional problems Allergies: Coded Allergies: IODINE (Verified Allergy, Unknown, 11/10/17) Subjective the pt is stable at baseline no behavioral issues no agitation Objective Last 24 Hour Vital Signs Date Time Temp Pulse Resp B/P (MAP) Pulse Ox O2 Delivery O2 Flow Rate FiO2 03/06/18 21:00 Room Air 03/06/18 21:00 73 109/65 03/06/18 20:00 98.2 73 20 109/65 (80) 94 03/06/18 16:00 98.1 74 20 109/56 (73) 97 03/06/18 12:00 98.1 65 18 105/55 (72) 96 03/06/18 09:00 Room Air 03/06/18 08:43 82 146/85 03/06/18 08:43 82 146/85 03/06/18 08:00 96.1 82 20 146/85 (105) 95 03/06/18 04:00 98.1 61 20 108/63 (78) 95 03/06/18 00:00 97.7 71 20 127/74 (91) 94 Intake and Output 03/05/18 03/06/18 18:59 06:59 Intake Total 980 ml Balance 980 ml Intake Free Water 500 ml Tube Feeding 480 ml # Voids 3 # Bowel Movements 2 Height (Feet): 5 Height (Inches): 6.00 Weight (Pounds): 140 General Appearance: alert, confused Neurologic: depressed affect Ramon Duke MD Mar 06, 2018 23:46
[2018-03-07] VITALS: BP 136/58
--- NOTE | 2018-03-07 02:45 | Consultation ---
DATE OF CONSULTATION: 03/06/2018 GASTROENTEROLOGY CONSULTATION CONSULTING PHYSICIAN: Marshal Jin M.D. REFERRING PHYSICIAN: Sampson Leggett M.D. CHIEF COMPLAINT: I was asked to see this patient by Dr. Sampson Leggett for evaluation of occluded gastrostomy catheter and nutritional support. HISTORY OF PRESENT ILLNESS: The patient is an unfortunate 73-year-old woman with rapidly progressive dementia, who has become bedbound and noncommunicative. Because of result of dysphagia, she has required gastrostomy tube to be placed. This gastrostomy tube was reportedly occluded today and no medications or fluid could be given through it. The patient herself is unable to provide any history and most of the information is only available from the chart. PAST MEDICAL HISTORY: History of advanced dementia, dysphagia, contracture deformities, and status gastrostomy tube placement. FAMILY HISTORY: Noncontributory. SOCIAL HISTORY: The patient is from a nursing care facility. She has had no recent history of smoking or drinking. MEDICATIONS: See the chart list for details. REVIEW OF SYSTEMS: Otherwise negative. PHYSICAL EXAMINATION: GENERAL: A debilitated woman, seen in her room. HEENT: Normocephalic and atraumatic. Sclerae are anicteric. Dentition is poor. Oropharynx could not be evaluated due to non-cooperative state. NECK: Neck appeared somewhat difficult, the patient with . CHEST: Revealed coarse breath sounds. CARDIOVASCULAR: Revealed regular rate. ABDOMEN: Soft with good bowel sounds. The gastrostomy tube was inspected, evaluated, and was cleared and care was discussed with the nursing staff, who will be flushing the catheter more frequently [id number]. EXTREMITIES: Revealed contracture deformities. NEUROLOGIC: Nonfocal. LABORATORY DATA: Noted. ASSESSMENT: This patient has advanced dementia, has contracture deformities, bedbound, and will require gastrostomy tube feeding for long-term enteral nutrition. Her gastrostomy catheter will be flushed more frequently and will be inspected in order to avoid reocclusion. Pills will also be crushed thoroughly and elixir medications should be used whenever available. Once the tube is older then it can be periodically changed with balloon-tip catheter after usual guidelines. RECOMMENDATIONS: Per above discussion and per orders written in the chart. Thank you for asking me to participate in the care of this patient. Marshal Jin M.D. DR: MECHELLE JOB#: [id number] CC:
[2018-03-07 04:00] VITALS: BP 138/69
[2018-03-07 07:09] LABS: BASOPHILS % (AUTO) 0.5 % (0.0-2.0); EOSINOPHILS % (AUTO) 1.4 % (0.0-3.0); HEMATOCRIT 40.5 % (37.0-47.0); HEMOGLOBIN 13.7 G/DL (12.0-16.0); LYMPHOCYTES % (AUTO) 24.8 % (20.0-45.0); MEAN CORPUSCULAR VOLUME 87 FL (80-99); MONOCYTES % (AUTO) 10.1 % (1.0-10.0); NEUTROPHILS % (AUTO) 63.2 % (45.0-75.0); PLATELET COUNT 185 K/UL (150-450); RED BLOOD COUNT 4.66 M/UL (4.20-5.40); RED CELL DISTRIBUTION WIDTH 13.9 % (11.6-14.8); WHITE BLOOD COUNT 6.4 K/UL (4.8-10.8)
[2018-03-07 07:17] LABS: ALANINE AMINOTRANSFERASE 32 U/L (12-78); ALBUMIN 2.9 G/DL (3.4-5.0); ALBUMIN/GLOBULIN RATIO 0.7 (1.0-2.7); ALKALINE PHOSPHATASE 42 U/L (46-116); ANION GAP 8 mmol/L (5-15); ASPARTATE AMINO TRANSFERASE 19 U/L (15-37); BILIRUBIN,TOTAL 0.2 MG/DL (0.2-1.0); BLOOD UREA NITROGEN 18 mg/dL (7-18); CALCIUM 10.1 MG/DL (8.5-10.1); CARBON DIOXIDE 28 MMOL/L (21-32); CHLORIDE 104 MMOL/L (98-107); CREATININE 0.8 MG/DL (0.55-1.30); POTASSIUM 4.3 MMOL/L (3.5-5.1); SODIUM 140 MMOL/L (136-145)
--- NOTE | 2018-03-07 07:20 | NUR ---
HAND-OFF: Report given to Ms. Debi Barrera.
[2018-03-07 08:00] VITALS: BP 132/74
--- NOTE | 2018-03-07 08:00 | NUR ---
NURSE NOTES: Received patient on bed, asleep. IV site intact and patent. Gtube intact and patent. hob semi fowlers position. siderails are up x3. Purewick on patient. Bed in low and locked position, call light within reach. No signs of respiratory distress or pain. Room board updated. Will continue to monitor patient.
[2018-03-07] MEDS: Multivitamins W/Minerals 15 ML UDC GT SCH (08:37)
[2018-03-07] MEDS: Valproic Acid 250mg/5ml Liquid GT SCH ×2 (08:37→21:23)
[2018-03-07] MEDS: Carvedilol 6.25mg Tab GT SCH ×3 (08:38→21:26)
--- NOTE | 2018-03-07 11:20 | Infectious Diseases Prog Note ---
Assessment/Plan Assessment/Plan A; Pyuria, UTI treated AMS VRE colonization Dementia, P; Observe off antibiotic Wsiting for placement Subjective ROS Limited/Unobtainable: Yes Allergies: Coded Allergies: IODINE (Verified Allergy, Unknown, 11/10/17) Objective Vital Signs Last 24 Hour Vital Signs Date Time Temp Pulse Resp B/P (MAP) Pulse Ox O2 Delivery O2 Flow Rate FiO2 03/07/18 09:00 Room Air 03/07/18 08:38 69 132/74 03/07/18 08:37 69 132/74 03/07/18 08:00 97.2 69 18 132/74 (93) 97 03/07/18 04:00 98.3 69 20 138/69 (92) 98 03/07/18 00:00 98.3 67 18 136/58 (84) 99 03/06/18 21:00 Room Air 03/06/18 21:00 73 109/65 03/06/18 20:00 98.2 73 20 109/65 (80) 94 03/06/18 16:00 98.1 74 20 109/56 (73) 97 03/06/18 12:00 98.1 65 18 105/55 (72) 96 Height (Feet): 5 Height (Inches): 6.00 Weight (Pounds): 140 General Appearance: no acute distress HEENT: mucous membranes moist Respiratory/Chest: lungs clear Cardiovascular: normal rate Abdomen: soft, non tender, other - GT feeding Extremities: no edema Neurologic/Psychiatric: other - sleeping Laboratory Tests Test 03/07/18 05:15 White Blood Count 6.4 K/UL (4.8-10.8) Red Blood Count 4.66 M/UL (4.20-5.40) Hemoglobin 13.7 G/DL (12.0-16.0) Hematocrit 40.5 % (37.0-47.0) Mean Corpuscular Volume 87 FL (80-99) Mean Corpuscular Hemoglobin 29.5 PG (27.0-31.0) Mean Corpuscular Hemoglobin Concent 34.0 G/DL (32.0-36.0) Red Cell Distribution Width 13.9 % (11.6-14.8) Platelet Count 185 K/UL (150-450) Mean Platelet Volume 10.3 FL (6.5-10.1) H Neutrophils (%) (Auto) 63.2 % (45.0-75.0) Lymphocytes (%) (Auto) 24.8 % (20.0-45.0) Monocytes (%) (Auto) 10.1 % (1.0-10.0) H Eosinophils (%) (Auto) 1.4 % (0.0-3.0) Basophils (%) (Auto) 0.5 % (0.0-2.0) Sodium Level 140 MMOL/L (136-145) Potassium Level 4.3 MMOL/L (3.5-5.1) Chloride Level 104 MMOL/L (98-107) Carbon Dioxide Level 28 MMOL/L (21-32) Anion Gap 8 mmol/L (5-15) Blood Urea Nitrogen 18 mg/dL (7-18) Creatinine 0.8 MG/DL (0.55-1.30) Estimat Glomerular Filtration Rate mL/min (>60) Glucose Level 104 MG/DL (74-106) Calcium Level 10.1 MG/DL (8.5-10.1) Phosphorus Level 4.0 MG/DL (2.5-4.9) Magnesium Level 2.5 MG/DL (1.8-2.4) H Total Bilirubin 0.2 MG/DL (0.2-1.0) Aspartate Amino Transf (AST/SGOT) 19 U/L (15-37) Alanine Aminotransferase (ALT/SGPT) 32 U/L (12-78) Alkaline Phosphatase 42 U/L (46-116) L Total Protein 6.8 G/DL (6.4-8.2) Albumin 2.9 G/DL (3.4-5.0) L Globulin 3.9 g/dL Albumin/Globulin Ratio 0.7 (1.0-2.7) L Current Medications Medications (Trade) Dose Ordered Sig/Claritza Route PRN Reason Start Time Stop Time Status Last Admin Dose Admin Acetaminophen (Tylenol) 650 mg Q4H PRN GT For Pain 02/28/18 17:00 03/27/18 16:59 Amlodipine Besylate (Norvasc) 2.5 mg DAILY GT 03/02/18 09:00 03/29/18 08:59 03/07/18 08:37 Carvedilol (Coreg) 6.25 mg EVERY 12 HOURS GT 03/01/18 21:00 2/2/19 08:59 03/07/18 08:38 Escitalopram Oxalate (Lexapro) 10 mg DAILY GT 03/01/18 09:00 03/27/18 08:59 03/07/18 08:38 Lansoprazole (Prevacid) 30 mg DAILY GT 03/01/18 09:00 03/27/18 08:59 03/07/18 08:37 Multivitamins (Multivitamins W/ Minerals 15ml Liquid) 15 ml DAILY GT 03/01/18 09:00 03/27/18 08:59 03/07/18 08:37 Polyethylene Glycol (Miralax) 17 gm BEDTIME GT 02/28/18 21:00 03/27/18 20:59 03/06/18 21:15 Pravastatin Sodium (Pravachol) 80 mg BEDTIME GT 02/28/18 21:00 03/27/18 20:59 03/06/18 21:15 Risperidone (RisperDAL) 1 mg BID GT 02/28/18 18:00 03/27/18 08:59 03/07/18 08:37 Valproic Acid (Depakene) 500 mg EVERY 12 HOURS GT 02/28/18 21:00 03/28/18 08:59 03/07/18 08:37 Kevon Thurston MD Mar 07, 2018 11:20
[2018-03-07 12:04] VITALS: BP 111/54
--- NOTE | 2018-03-07 14:30 | NUR ---
NURSE NOTES: changed gtube drsg. kept hob elevated and repositioned. will cont to monitor.
--- NOTE | 2018-03-07 15:04 | Nephrology Progress Note ---
Assessment/Plan Problem List: (1) UTI (urinary tract infection) (2) Encephalopathy (3) HTN (hypertension) (4) Diabetes mellitus Assessment UTI h/o rapidly progressive dementia, ? Encephalitis mild HTN PEG mild elevation of A1c Plan Urine cultures neg antibiotics noted watch lytes adjust psychotropics per psych ! down on norvasc per orders not much to add from renal stand med surg ? Dc DC plascencia Subjective ROS Limited/Unobtainable: No Constitutional: Reports: malaise Objective Objective Last 24 Hour Vital Signs Date Time Temp Pulse Resp B/P (MAP) Pulse Ox O2 Delivery O2 Flow Rate FiO2 03/07/18 12:04 97.5 56 18 111/54 (73) 96 03/07/18 09:00 Room Air 03/07/18 08:38 69 132/74 03/07/18 08:37 69 132/74 03/07/18 08:00 97.2 69 18 132/74 (93) 97 03/07/18 04:00 98.3 69 20 138/69 (92) 98 03/07/18 00:00 98.3 67 18 136/58 (84) 99 03/06/18 21:00 Room Air 03/06/18 21:00 73 109/65 03/06/18 20:00 98.2 73 20 109/65 (80) 94 03/06/18 16:00 98.1 74 20 109/56 (73) 97 Intake and Output 03/06/18 03/07/18 19:00 07:00 Intake Total 1230 ml 1230 ml Output Total 601 ml 400 ml Balance 629 ml 830 ml Intake Free Water 750 ml 750 ml Tube Feeding 480 ml 480 ml Output Urine Total 600 ml 400 ml Stool Total 1 ml Laboratory Tests 03/07/18 05:15: White Blood Count 6.4, Red Blood Count 4.66, Hemoglobin 13.7, Hematocrit 40.5, Mean Corpuscular Volume 87, Mean Corpuscular Hemoglobin 29.5, Mean Corpuscular Hemoglobin Concent 34.0, Red Cell Distribution Width 13.9, Platelet Count 185, Mean Platelet Volume 10.3H, Neutrophils (%) (Auto) 63.2, Lymphocytes (%) (Auto) 24.8, Monocytes (%) (Auto) 10.1H, Eosinophils (%) (Auto) 1.4, Basophils (%) ( Auto) 0.5, Sodium Level 140, Potassium Level 4.3, Chloride Level 104, Carbon Dioxide Level 28, Anion Gap 8, Blood Urea Nitrogen 18, Creatinine 0.8, Estimat Glomerular Filtration Rate , Glucose Level 104, Calcium Level 10.1, Phosphorus Level 4.0, Magnesium Level 2.5H, Total Bilirubin 0.2, Aspartate Amino Transf ( AST/SGOT) 19, Alanine Aminotransferase (ALT/SGPT) 32, Alkaline Phosphatase 42L, Total Protein 6.8, Albumin 2.9L, Globulin 3.9, Albumin/Globulin Ratio 0.7L Height (Feet): 5 Height (Inches): 6.00 Weight (Pounds): 140 General Appearance: no apparent distress Objective no change Nahum Connolly MD Mar 07, 2018 15:04
[2018-03-07 16:00] VITALS: BP 101/49
--- NOTE | 2018-03-07 17:09 | NUR ---
CASE MANAGEMENT:REVIEW 03/06/2018 SI: ACUTE ENCEPHALOPATHY D/T UTI. DYSPHAGIA T 98.2 HR 73 RR 20 B/P 109/65 SATS 97% ON RA NO LABS TODAY IS: NORVASC GT QD DEPAKENE GT Q12 IV ROCEPHIN Q24 LEXAPRO GT QD RISPERDAL GT BID COREG GT Q12H : MED/SURG STATUS DCP: FROM [facility] 03/07/2018 SI: ACUTE ENCEPHALOPATHY D/T UTI. DYSPHAGIA T 97.3 HR 57 RR 18 B/P 101/49 SATS 98% ON RA MG 2.5 ALP 42 IS: NORVASC GT QD DEPAKENE GT Q12 IV ROCEPHIN Q24 LEXAPRO GT QD RISPERDAL GT BID COREG GT Q12H : MED/SURG STATUS DCP: FROM [facility]
--- NOTE | 2018-03-07 19:21 | NUR ---
HAND-OFF: Report given to
--- NOTE | 2018-03-07 19:41 | General Progress Note ---
Assessment/Plan Assessment/Plan Assessment ASTP for GT occlusion - cleared Encephalopathy dysphagia HTN DM Recommendations continue TF GT flushes Elevate HOB will follow Subjective Allergies: Coded Allergies: IODINE (Verified Allergy, Unknown, 11/10/17) Subjective debilitated WW non communicative Objective Last 24 Hour Vital Signs Date Time Temp Pulse Resp B/P (MAP) Pulse Ox O2 Delivery O2 Flow Rate FiO2 03/07/18 16:00 97.3 57 18 101/49 (66) 98 03/07/18 12:04 97.5 56 18 111/54 (73) 96 03/07/18 09:00 Room Air 03/07/18 08:38 69 132/74 03/07/18 08:37 69 132/74 03/07/18 08:00 97.2 69 18 132/74 (93) 97 03/07/18 04:00 98.3 69 20 138/69 (92) 98 03/07/18 00:00 98.3 67 18 136/58 (84) 99 03/06/18 21:00 Room Air 03/06/18 21:00 73 109/65 03/06/18 20:00 98.2 73 20 109/65 (80) 94 Intake and Output 03/06/18 03/07/18 18:59 06:59 Intake Total 1230 ml 1230 ml Output Total 601 ml 400 ml Balance 629 ml 830 ml Intake Free Water 750 ml 750 ml Tube Feeding 480 ml 480 ml Output Urine Total 600 ml 400 ml Stool Total 1 ml Laboratory Tests 03/07/18 05:15: White Blood Count 6.4, Red Blood Count 4.66, Hemoglobin 13.7, Hematocrit 40.5, Mean Corpuscular Volume 87, Mean Corpuscular Hemoglobin 29.5, Mean Corpuscular Hemoglobin Concent 34.0, Red Cell Distribution Width 13.9, Platelet Count 185, Mean Platelet Volume 10.3H, Neutrophils (%) (Auto) 63.2, Lymphocytes (%) (Auto) 24.8, Monocytes (%) (Auto) 10.1H, Eosinophils (%) (Auto) 1.4, Basophils (%) ( Auto) 0.5, Sodium Level 140, Potassium Level 4.3, Chloride Level 104, Carbon Dioxide Level 28, Anion Gap 8, Blood Urea Nitrogen 18, Creatinine 0.8, Estimat Glomerular Filtration Rate , Glucose Level 104, Calcium Level 10.1, Phosphorus Level 4.0, Magnesium Level 2.5H, Total Bilirubin 0.2, Aspartate Amino Transf ( AST/SGOT) 19, Alanine Aminotransferase (ALT/SGPT) 32, Alkaline Phosphatase 42L, Total Protein 6.8, Albumin 2.9L, Globulin 3.9, Albumin/Globulin Ratio 0.7L Height (Feet): 5 Height (Inches): 6.00 Weight (Pounds): 140 Objective WDWN NCAT supple CTA RRR Soft ND NT no edema Marshal Jin MD Mar 07, 2018 19:41
--- NOTE | 2018-03-07 19:51 | NUR ---
NURSE NOTES: Patient asleep in bed, No acute distress noted, No sign of pain noted, With Gtube intact and patent connected to feeding. Call light in reach. Bed in lowest position and locked, Alarm is on, Will continue to plan of care.
[2018-03-07 20:00] VITALS: BP 147/91
[2018-03-07] MEDS: Miralax 17gm pkt GT SCH (21:23)
--- NOTE | 2018-03-07 21:27 | General Progress Note ---
Assessment/Plan Problem List: (1) Encephalopathy ICD Codes: G93.40 - Encephalopathy SNOMED: 60338238 (2) Constipation ICD Codes: K59.00 - Constipation, unspecified SNOMED: 03461223 (3) Altered level of consciousness ICD Codes: R40.4 - Transient alteration of awareness SNOMED: 6701545 (4) HTN (hypertension) ICD Codes: I10 - Essential (primary) hypertension SNOMED: 33637593 (5) Diabetes mellitus ICD Codes: E11.9 - Type 2 diabetes mellitus without complications SNOMED: 19618194 (6) UTI (urinary tract infection) ICD Codes: N39.0 - Urinary tract infection, site not specified SNOMED: 81866941 Qualifiers: Qualified Codes: N39.0 - Urinary tract infection, site not specified (7) Episode of generalized weakness ICD Codes: R53.1 - Weakness SNOMED: 12918399 Status: progressing Assessment/Plan nac no fever advanced dementia dm htn ams due to uti improved placement issue reviewed chart and labs Subjective ROS Limited/Unobtainable: Yes Allergies: Coded Allergies: IODINE (Verified Allergy, Unknown, 11/10/17) Objective Last 24 Hour Vital Signs Date Time Temp Pulse Resp B/P (MAP) Pulse Ox O2 Delivery O2 Flow Rate FiO2 03/07/18 21:00 76 127/85 03/07/18 20:00 97.9 67 16 147/91 (109) 96 03/07/18 16:00 97.3 57 18 101/49 (66) 98 03/07/18 12:04 97.5 56 18 111/54 (73) 96 03/07/18 09:00 Room Air 03/07/18 08:38 69 132/74 03/07/18 08:37 69 132/74 03/07/18 08:00 97.2 69 18 132/74 (93) 97 03/07/18 04:00 98.3 69 20 138/69 (92) 98 03/07/18 00:00 98.3 67 18 136/58 (84) 99 Intake and Output 03/06/18 03/07/18 18:59 06:59 Intake Total 1230 ml 1230 ml Output Total 601 ml 400 ml Balance 629 ml 830 ml Intake Free Water 750 ml 750 ml Tube Feeding 480 ml 480 ml Output Urine Total 600 ml 400 ml Stool Total 1 ml Laboratory Tests 03/07/18 05:15: White Blood Count 6.4, Red Blood Count 4.66, Hemoglobin 13.7, Hematocrit 40.5, Mean Corpuscular Volume 87, Mean Corpuscular Hemoglobin 29.5, Mean Corpuscular Hemoglobin Concent 34.0, Red Cell Distribution Width 13.9, Platelet Count 185, Mean Platelet Volume 10.3H, Neutrophils (%) (Auto) 63.2, Lymphocytes (%) (Auto) 24.8, Monocytes (%) (Auto) 10.1H, Eosinophils (%) (Auto) 1.4, Basophils (%) ( Auto) 0.5, Sodium Level 140, Potassium Level 4.3, Chloride Level 104, Carbon Dioxide Level 28, Anion Gap 8, Blood Urea Nitrogen 18, Creatinine 0.8, Estimat Glomerular Filtration Rate , Glucose Level 104, Calcium Level 10.1, Phosphorus Level 4.0, Magnesium Level 2.5H, Total Bilirubin 0.2, Aspartate Amino Transf ( AST/SGOT) 19, Alanine Aminotransferase (ALT/SGPT) 32, Alkaline Phosphatase 42L, Total Protein 6.8, Albumin 2.9L, Globulin 3.9, Albumin/Globulin Ratio 0.7L Height (Feet): 5 Height (Inches): 6.00 Weight (Pounds): 140 General Appearance: confused Neck: normal alignment Cardiovascular: normal rate Respiratory/Chest: lungs clear Abdomen: soft Sampson Leggett MD Mar 07, 2018 21:27
--- NOTE | 2018-03-07 21:35 | General Progress Note ---
Assessment/Plan Problem List: (1) Toxic encephalopathy ICD Codes: G92 - Toxic encephalopathy SNOMED: 93613229 Assessment/Plan risperdal 1mg po qhs cont lexapro 10mg qhs cont depakote the pt lacks capacity to make decisions. Subjective Neurologic/Psychiatric: Reports: anxiety, depressed, emotional problems Allergies: Coded Allergies: IODINE (Verified Allergy, Unknown, 11/10/17) Subjective the pt is stable at baseline no behavioral issues no agitation Objective Last 24 Hour Vital Signs Date Time Temp Pulse Resp B/P (MAP) Pulse Ox O2 Delivery O2 Flow Rate FiO2 03/07/18 21:26 76 127/85 03/07/18 20:00 97.9 67 16 147/91 (109) 96 03/07/18 16:00 97.3 57 18 101/49 (66) 98 03/07/18 12:04 97.5 56 18 111/54 (73) 96 03/07/18 09:00 Room Air 03/07/18 08:38 69 132/74 03/07/18 08:37 69 132/74 03/07/18 08:00 97.2 69 18 132/74 (93) 97 03/07/18 04:00 98.3 69 20 138/69 (92) 98 03/07/18 00:00 98.3 67 18 136/58 (84) 99 Intake and Output 03/06/18 03/07/18 18:59 06:59 Intake Total 1230 ml 1230 ml Output Total 601 ml 400 ml Balance 629 ml 830 ml Intake Free Water 750 ml 750 ml Tube Feeding 480 ml 480 ml Output Urine Total 600 ml 400 ml Stool Total 1 ml Laboratory Tests 03/07/18 05:15: White Blood Count 6.4, Red Blood Count 4.66, Hemoglobin 13.7, Hematocrit 40.5, Mean Corpuscular Volume 87, Mean Corpuscular Hemoglobin 29.5, Mean Corpuscular Hemoglobin Concent 34.0, Red Cell Distribution Width 13.9, Platelet Count 185, Mean Platelet Volume 10.3H, Neutrophils (%) (Auto) 63.2, Lymphocytes (%) (Auto) 24.8, Monocytes (%) (Auto) 10.1H, Eosinophils (%) (Auto) 1.4, Basophils (%) ( Auto) 0.5, Sodium Level 140, Potassium Level 4.3, Chloride Level 104, Carbon Dioxide Level 28, Anion Gap 8, Blood Urea Nitrogen 18, Creatinine 0.8, Estimat Glomerular Filtration Rate , Glucose Level 104, Calcium Level 10.1, Phosphorus Level 4.0, Magnesium Level 2.5H, Total Bilirubin 0.2, Aspartate Amino Transf ( AST/SGOT) 19, Alanine Aminotransferase (ALT/SGPT) 32, Alkaline Phosphatase 42L, Total Protein 6.8, Albumin 2.9L, Globulin 3.9, Albumin/Globulin Ratio 0.7L Height (Feet): 5 Height (Inches): 6.00 Weight (Pounds): 140 General Appearance: alert, confused, agitated Ramon Duke MD Mar 07, 2018 21:34
[2018-03-08] VITALS: BP 105/58
[2018-03-08 04:00] VITALS: BP 127/59
--- NOTE | 2018-03-08 07:50 | NUR ---
NURSE NOTES: Pt in bed asleep, no acute distress, HL patent, g tube feeding tolerating well no residual noted. aspiration and fall precaution observed and maintained, in bed in low position, both side rails up for safety,call light within reach maria m piña
[2018-03-08 08:00] VITALS: BP 125/61
[2018-03-08] MEDS: Carvedilol 6.25mg Tab GT SCH (08:59)
[2018-03-08] MEDS: Multivitamins W/Minerals 15 ML UDC GT SCH (08:59)
[2018-03-08] MEDS: Valproic Acid 250mg/5ml Liquid GT SCH (09:01)
--- NOTE | 2018-03-08 11:39 | Nephrology Progress Note ---
Assessment/Plan Problem List: (1) UTI (urinary tract infection) (2) Encephalopathy (3) HTN (hypertension) (4) Diabetes mellitus Assessment UTI h/o rapidly progressive dementia, ? Encephalitis mild HTN PEG mild elevation of A1c Plan Urine cultures neg antibiotics noted watch lytes adjust psychotropics per psych ! down on norvasc per orders not much to add from renal stand med surg ? Dc DC plascencia Subjective ROS Limited/Unobtainable: No Constitutional: Reports: malaise Objective Objective Last 24 Hour Vital Signs Date Time Temp Pulse Resp B/P (MAP) Pulse Ox O2 Delivery O2 Flow Rate FiO2 03/08/18 08:59 61 127/59 03/08/18 08:59 61 127/59 03/08/18 08:07 Room Air 03/08/18 08:00 97.7 62 16 125/61 (82) 99 03/08/18 04:00 97.8 61 16 127/59 (81) 100 03/08/18 00:00 97.6 67 18 105/58 (74) 94 03/07/18 21:00 76 127/85 03/07/18 21:00 Room Air 03/07/18 20:00 97.9 67 16 147/91 (109) 96 03/07/18 16:00 97.3 57 18 101/49 (66) 98 03/07/18 12:04 97.5 56 18 111/54 (73) 96 Intake and Output 03/07/18 03/08/18 19:00 07:00 Intake Total 1290 ml 1190 ml Output Total 600 ml 1200 ml Balance 690 ml -10 ml Intake Free Water 810 ml 750 ml Tube Feeding 480 ml 440 ml Output Urine Total 600 ml 1200 ml # Voids 5 # Bowel Movements 1 Height (Feet): 5 Height (Inches): 6.00 Weight (Pounds): 140 General Appearance: no apparent distress Objective no change Nahum Connolly MD Mar 08, 2018 11:39
[2018-03-08 12:00] VITALS: BP 127/65
--- NOTE | 2018-03-08 12:30 | Infectious Diseases Prog Note ---
Assessment/Plan Assessment/Plan A; Pyuria, UTI treated AMS VRE colonization Dementia, P; Observe off antibiotic Wsiting for placement Subjective ROS Limited/Unobtainable: Yes Allergies: Coded Allergies: IODINE (Verified Allergy, Unknown, 11/10/17) Objective Vital Signs Last 24 Hour Vital Signs Date Time Temp Pulse Resp B/P (MAP) Pulse Ox O2 Delivery O2 Flow Rate FiO2 03/08/18 08:59 61 127/59 03/08/18 08:59 61 127/59 03/08/18 08:07 Room Air 03/08/18 08:00 97.7 62 16 125/61 (82) 99 03/08/18 04:00 97.8 61 16 127/59 (81) 100 03/08/18 00:00 97.6 67 18 105/58 (74) 94 03/07/18 21:00 76 127/85 03/07/18 21:00 Room Air 03/07/18 20:00 97.9 67 16 147/91 (109) 96 03/07/18 16:00 97.3 57 18 101/49 (66) 98 Height (Feet): 5 Height (Inches): 6.00 Weight (Pounds): 140 General Appearance: no acute distress HEENT: mucous membranes moist Respiratory/Chest: lungs clear Cardiovascular: normal rate Abdomen: soft, non tender, other - GT feeding Skin: no rash Neurologic/Psychiatric: alert, responsive Current Medications Medications (Trade) Dose Ordered Sig/Claritza Route PRN Reason Start Time Stop Time Status Last Admin Dose Admin Acetaminophen (Tylenol) 650 mg Q4H PRN GT For Pain 02/28/18 17:00 03/27/18 16:59 Amlodipine Besylate (Norvasc) 2.5 mg DAILY GT 03/02/18 09:00 03/29/18 08:59 03/08/18 08:59 Carvedilol (Coreg) 6.25 mg EVERY 12 HOURS GT 03/01/18 21:00 03/27/18 08:59 03/08/18 08:59 Escitalopram Oxalate (Lexapro) 10 mg DAILY GT 03/01/18 09:00 03/27/18 08:59 03/08/18 08:59 Lansoprazole (Prevacid) 30 mg DAILY GT 03/01/18 09:00 03/27/18 08:59 03/08/18 08:59 Multivitamins (Multivitamins W/ Minerals 15ml Liquid) 15 ml DAILY GT 03/01/18 09:00 03/27/18 08:59 03/08/18 08:59 Polyethylene Glycol (Miralax) 17 gm BEDTIME GT 02/28/18 21:00 03/27/18 20:59 03/07/18 21:23 Pravastatin Sodium (Pravachol) 80 mg BEDTIME GT 02/28/18 21:00 03/27/18 20:59 03/07/18 21:24 Risperidone (RisperDAL) 1 mg BID GT 02/28/18 18:00 03/27/18 08:59 03/08/18 08:59 Valproic Acid (Depakene) 500 mg EVERY 12 HOURS GT 02/28/18 21:00 03/28/18 08:59 03/08/18 09:01 Kevon Thurston MD Mar 08, 2018 12:30
--- NOTE | 2018-03-08 15:16 | NUR ---
DISCHARGE PLANNING PATIENT HAS BEEN REFERRED BACK TO: [facility] P:[phone] F: [phone]
[2018-03-08 16:00] VITALS: BP 120/62
--- NOTE | 2018-03-08 16:12 | NUR ---
DISCHARGE PLANNED PATIENT DISCHARGED BACK TO: [facility] ROOM# 23-B [facility] T:[phone] FOR NURSE TO NURSE REPORT [facility] HAS BEEN ARRANGED FOR [facility]DER AT 1730 S/W TAYO [id number]
--- NOTE | 2018-03-08 17:30 | NUR ---
nurse notes discharge to [facility] Rm 23B obtained, called and notified Patient agreed with the plan of care, report given to Frantz BLANC, g tube clamped at this time .maria m piña
--- NOTE | 2018-03-08 19:00 | NUR ---
HAND-OFF: Report given to Gianna BURRELL RN
--- NOTE | 2018-03-08 19:37 | NUR ---
NURSE NOTES: Received report from a morning nurse , patient is ready for a discharge, awaiting for a [facility] ambulance, ambulance arrived at 1930, patient is discharged from the unit, belongings are accounted and signed for. Patient is in no acute distress at this time, VSS, patient is asleep, report given to Desire from [facility] ambulance.
--- NOTE | 2018-03-08 20:06 | General Progress Note ---
Assessment/Plan Assessment/Plan Assessment ASTP for GT occlusion - cleared Encephalopathy dysphagia HTN DM Recommendations continue TF GT flushes Elevate HOB d/c planning Subjective Allergies: Coded Allergies: IODINE (Verified Allergy, Unknown, 11/10/17) Subjective debilitated WW non communicative Objective Last 24 Hour Vital Signs Date Time Temp Pulse Resp B/P (MAP) Pulse Ox O2 Delivery O2 Flow Rate FiO2 03/08/18 16:00 97.8 67 18 120/62 (81) 99 03/08/18 12:00 97.7 62 17 127/65 (85) 99 03/08/18 08:59 61 127/59 03/08/18 08:59 61 127/59 03/08/18 08:07 Room Air 03/08/18 08:00 97.7 62 16 125/61 (82) 99 03/08/18 04:00 97.8 61 16 127/59 (81) 100 03/08/18 00:00 97.6 67 18 105/58 (74) 94 03/07/18 21:00 76 127/85 03/07/18 21:00 Room Air Intake and Output 03/07/18 03/08/18 19:00 07:00 Intake Total 1290 ml 1190 ml Output Total 600 ml 1200 ml Balance 690 ml -10 ml Intake Free Water 810 ml 750 ml Tube Feeding 480 ml 440 ml Output Urine Total 600 ml 1200 ml # Voids 5 # Bowel Movements 1 Height (Feet): 5 Height (Inches): 6.00 Weight (Pounds): 140 Objective WDWN NCAT supple CTA RRR Soft ND NT no edema Marshal Jin MD Mar 08, 2018 20:06
--- NOTE | 2018-03-09 23:52 | General Progress Note ---
Assessment/Plan Problem List: (1) Toxic encephalopathy ICD Codes: G92 - Toxic encephalopathy SNOMED: 83764204 Assessment/Plan risperdal 1mg po qhs cont lexapro 10mg qhs cont depakote the pt lacks capacity to make decisions. Subjective Neurologic/Psychiatric: Reports: anxiety, depressed, emotional problems Allergies: Coded Allergies: IODINE (Verified Allergy, Unknown, 11/10/17) Subjective the pt is stable at baseline no behavioral issues no agitation Objective Intake and Output 03/08/18 03/09/18 19:00 07:00 Intake Total 1110 ml Balance 1110 ml Intake Free Water 750 ml Tube Feeding 360 ml Height (Feet): 5 Height (Inches): 6.00 Weight (Pounds): 140 General Appearance: no apparent distress, alert, confused Ramon Duke MD Mar 09, 2018 23:52
--- NOTE | 2018-03-10 08:15 | Discharge Summary ---
Discharge Summary Discharge Summary _ 90 DATE OF ADMISSION: 02/24/2018 DATE OF DISCHARGE: 03/08/2018 DISCHARGED BY: Dr. Leggett REASON FOR ADMISSION: 73 years old female with history of advanced dementia, dysphagia, G-tube feeding, diabetes mellitus, contractures deformity, bedbound, noncommunicative, presented with generalized weakness, vomiting , dysuria. Patient was evaluated in the past for rapidly progressive dementia ,, and apparently MRIs were negative for acute pathology but were suggestive of prior strokes. Vital signs revealed low-grade fever and low blood pressure 98/48. Laboratory workup revealed no leukocytosis ,stable hemoglobin hematocrit. BUN 23 creatinine. Urinalysis with pyuria , + 3leukocyte esterase and few bacteria. Urine toxicology screen was negative. Serum alcohol, Tylenol, and salicylate were all negative CT of the head revealed no acute intracranial bleeding ,mass effect or edema. Mild atrophy of the brain noted with nonspecific white matter hypoattenuation , probably due to chronic small vessel disease. Chest x-ray revealed no acute cardiopulmonary pathology . Patient was admitted for further management. CONSULTANTS: ID specialist Dr. Avilse GI specialist dr. Vang dermatologist Dr. Connolly psychiatrist [facility]: Patient admitted to medical surgical floor. Patient started on IV fluids and empiric antibiotics. ID specialist closely followed. Blood cultures were negative. Urine culture were negative. Patient was treated for pyuria and probable UTI , status post treatment. No leukocytosis. No fevers. Psychiatric medication regimen was optimized as per psychiatrist. Per psychiatrist patient lacked capacity to make informed decisions. Assistant Professor Of Biology closely followed. Blood pressure was managed with beta-abigail and calcium channel abigail. Statin was continued. Renal parameters and electrolytes were closely monitored , nephrotoxins were avoided. Electrolytes corrected as needed. Patient initially had Mcdaniel catheter , which have eventually discontinued. Blood sugar was managed with current regimen and remained stable. Hemoglobin A1c 6.2 -at goal. GI consult was requested . Occlusion was corrected. GI specialist recommended to flush gastrostomy catheter more frequently. All medications should be thoroughly crushed and elixir medications should be used whenever possible. Once G tube older, it can be periodically changed with ballon- tip catheter under usual guidelines . Strict aspiration/reflux precautions were maintained. G-tube site care provided. Patient was able to tolerate tube feeding. GI prophylaxis provided. Bowel regimen instituted. Hemoglobin and hematocrit remained stable. Electrolytes stable. Prior to discharge BUN 18 creatinine 0.8. Stable folate, B 12, and TSH levels. Patient stabilized and was ready for transfer to senior care facility for continuation of care. FINAL DIAGNOSES: Toxic encephalopathy Pyuria, probable UTI, status post treatment Hypertension Diabetes mellitus Malfunction/occlusion of Q-thuh-jmluyjay Dysphagia G-tube feeding Advanced dementia DISCHARGE MEDICATIONS: See Medication Reconciliation list. DISCHARGE INSTRUCTIONS: Patient was discharged to the senior care facility/[facility] - under residential care . Follow up with medical doctor at the facility. I have been assigned to dictate discharge summary for this account. I was not involved in the patient's management. Purnima Centeno NP Mar 10, 2018 08:15
== END 2018-03-08 19:30 | DRG 689 ==
LOC: EDBD 13:20 → EMR 14:04 → EDBEDREQ 14:33 → 2E 15:11 → EDBEDREQ 15:26 → 4E 02-28 16:38
DX: N39.0 Urinary tract infection, site not specified (principal); G92 Toxic encephalopathy; K94.23 Gastrostomy malfunction; Z43.1 Encounter for attention to gastrostomy; I10 Essential (primary) hypertension; E11.9 Type 2 diabetes mellitus without complications; R13.10 Dysphagia, unspecified; Y83.3 Surgical operation with formation of external stoma as the cause of abnormal reaction of the patient, or of later complication, without mention of misadventure at the time of the procedure; Z88.8 Allergy status to other drugs, medicaments and biological substances; K59.00 Constipation, unspecified; Z22.39 Carrier of other specified bacterial diseases; G30.9 Alzheimer's disease, unspecified; F02.80 Dementia in other diseases classified elsewhere, unspecified severity, without behavioral disturbance, psychotic disturbance, mood disturbance, and anxiety
CPT/HCPCS: 36415; 70450; 71045; 80053; 80061; 80164; 80307; 80329; 81003; 82140; 82607; 82746; 82962; 83036; 83605; 83735; 83880; 84100; 84443; 84550; 85025; 86140; 87040; 87081; 87086; 93005; 96361; 96365; 99285

== ENCOUNTER 2019-05-30 11:10 | Inpatient (IN) | payer BC, MEDICAID ==
[~2019-05-30] VITALS: Ht 160 cm; Wt 69.5 kg
[2019-05-30] VITALS (11 sets, daily range): BP systolic 119–153; BP diastolic 55–107
[~2019-05-30 11:10] MED LIST changes: +AMLODIPINE BESYL5 MG GT; +CARVEDILOL6.25 MG GT; +DOCUSATE S50 MG/5 ML GT; +JEVITY 1.5 CA1000 ML GT; +LEXAPRO10 MG GT; +MULTIVITAMINS1 EA14 GT; +OMEPRAZOLE20 M2 GT; +POLYETHYLENE GL17 GM GT; +PRAVASTATIN SOD20 M1 GT; +RISPERDAL1 MG GT; +VALPROIC A250 MG/5 M GT
[2019-05-30] MEDS ORDERED: MILK OF MA400 MG/51 ORAL (11:16)
[2019-05-30] MEDS ORDERED: TRAMADOL HCL50 MG GT (11:16)
[2019-05-30] MEDS ORDERED: ASPIR-LOW81 MG GT (11:16)
[2019-05-30] MEDS ORDERED: FISH OIL 1,0001 EAC4 GT (11:18)
[2019-05-30] MEDS ORDERED: SENNA8.6 M2 GT (11:18)
--- NOTE | 2019-05-30 11:33 | Emergency Room Report ---
History of Present Illness General Chief Complaint: Gastrointestinal Bleed Source: Patient, Medical Record, EMS Present Illness HPI Patient is a 74-year-old female presents after increased rectal bleeding. Patient was noted to have unknown onset of significant rectal bleeding. Previous history of psychiatric disease as well as chronic debilitation. She is G-tube dependent. Patient was noted to be full code. Patient was a sent in from nursing facility [facility]. Patient had previous visits to this hospital. She was noted to be poorly cognitive due to dementia. History is markedly limited by patient's mental status. Allergies: Coded Allergies: IODINE (Verified Allergy, Unknown, 11/10/17) COVID-19 Screening Contact w/high risk pt: No Recent Travel to affected area: No Experienced COVID-19 symptoms?: No Patient History Past Medical History: see triage record Reviewed Nursing Documentation: PMH: Agreed; PSxH: Agreed Nursing Documentation-PMH Past Medical History: No History, Except For Hx Cardiac Problems: Yes - HX of transient eschemic attack Hx Hypertension: Yes Hx Asthma: No Hx COPD: No Hx Diabetes: No Hx Cancer: No Hx Gastrointestinal Problems: Yes - Dysphagia Hx Neurological Problems: Yes - Sequelae of Cerebral Infarction Hx Cerebrovascular Accident: Yes - Stroke, cerebral infarction without residule deficits Hx Seizures: No Hx Weakness: Yes Review of Systems All Other Systems: limited - Review of systems: Review systems is limited by patient's being a poor historian Physical Exam Vital Signs Date Time Temp Pulse Resp B/P (MAP) Pulse Ox O2 Delivery O2 Flow Rate FiO2 05/30/19 11:07 97.0 82 16 160/83 (108) 96 Room Air General Appearance: alert, Chronically Ill ENT: dry mucus membranes Neck: limited range of motion Respiratory: lungs clear, normal breath sounds Cardiovascular #1: regular rate, rhythm Gastrointestinal: normal inspection, non tender, other - gtube present Rectal: other - gross blood per rectum with maroon colored stool Musculoskeletal: decreased range of motion, other - multiple contractures Neurologic: alert, motor weakness, aphasia Psychiatric: other - flat affect Procedures Critical Care Time Critical Care Time Critical care time excluding separately billed procedures was 45 minutes. Medical Decision Making Diagnostic Impression: Primary Impression: Lower GI bleed Additional Impressions: Acute febrile illness Suspected 2019 novel coronavirus infection Thrombocytopenia ER Course Patient presented for GI bleeding. Differential diagnosis include was not limited to anemia, coagulopathy, coronavirus, ulcer disease, diverticulosis, hemorrhoidal bleeding among others. Because of complexity of patient's case laboratory tests and imaging studies were ordered. Patient was noted to have initial temperature of 102. Patient had been noted to have significant bleeding from her rectal area. Patient is currently out of facility with reportedly 20 multiple positive patients with novel coronavirus infection.Laboratory testing showed adequate hemoglobin with significant thrombocytopenia. Patient with type and cross for blood. Patient's initial hemoglobin was noted to be adequate. She will be transfused platelets due to thrombocytopenia. Chest x-ray 1 view interpreted by me showed normal cardiac size without evident infiltrate KUB showed degenerative changes without evident definite bowel obstruction. G-tube is noted to be present. Dr. Doan was contacted for GI consult.G-tube was irrigated and was noted to have no evidence of bleeding. Dr. Hill was contacted for inpatient management due to physician for [facility]. Labs Test 05/30/19 11:30 05/30/19 12:30 White Blood Count 3.5 K/UL (4.8-10.8) Red Blood Count 4.71 M/UL (4.20-5.40) Hemoglobin 13.9 G/DL (12.0-16.0) Hematocrit 40.6 % (37.0-47.0) Mean Corpuscular Volume 86 FL (80-99) Mean Corpuscular Hemoglobin 29.5 PG (27.0-31.0) Mean Corpuscular Hemoglobin Concent 34.3 G/DL (32.0-36.0) Red Cell Distribution Width 12.8 % (11.6-14.8) Platelet Count K/UL (150-450) Mean Platelet Volume 8.5 FL (6.5-10.1) Neutrophils (%) (Auto) % (45.0-75.0) Lymphocytes (%) (Auto) % (20.0-45.0) Monocytes (%) (Auto) % (1.0-10.0) Eosinophils (%) (Auto) % (0.0-3.0) Basophils (%) (Auto) % (0.0-2.0) Differential Total Cells Counted 100 Neutrophils % (Manual) 55 % (45-75) Lymphocytes % (Manual) 37 % (20-45) Monocytes % (Manual) 6 % (1-10) Eosinophils % (Manual) 1 % (0-3) Basophils % (Manual) 0 % (0-2) Band Neutrophils 1 % (0-8) Platelet Estimate Platelet Morphology Normal Red Blood Cell Morphology Normal Prothrombin Time 9.6 SEC (9.30-11.50) Prothromb Time International Ratio 0.9 (0.9-1.1) Activated Partial Thromboplast Time 23 SEC (23-33) Lactic Acid Level 1.00 mmol/L (0.4-2.0) Troponin I 0.000 ng/mL (0.000-0.056) Urine Color Yellow Urine Appearance Slightly cloudy Urine pH 6 (4.5-8.0) Urine Specific [place] 1.015 (1.005-1.035) Urine Protein 1+ (NEGATIVE) Urine Glucose (UA) Negative (NEGATIVE) Urine Ketones 1+ (NEGATIVE) Urine Blood 5+ (NEGATIVE) Urine Nitrite Negative (NEGATIVE) Urine Bilirubin Negative (NEGATIVE) Urine Urobilinogen 8 MG/DL (0.0-1.0) Urine Leukocyte Esterase 1+ (NEGATIVE) Urine RBC 15-20 /HPF (0 - 2) Urine WBC 2-4 /HPF (0 - 2) Urine Squamous Epithelial Cells Occasional /LPF Urine Bacteria Few /HPF (NONE) Sodium Level 142 MMOL/L (136-145) Potassium Level 4.2 MMOL/L (3.5-5.1) Chloride Level 109 MMOL/L (98-107) Carbon Dioxide Level 25 MMOL/L (21-32) Anion Gap 8 mmol/L (5-15) Blood Urea Nitrogen 18 mg/dL (7-18) Creatinine 0.6 MG/DL (0.55-1.30) Estimat Glomerular Filtration Rate > 60 mL/min (>60) Glucose Level 111 MG/DL (74-106) Calcium Level 9.4 MG/DL (8.5-10.1) Total Bilirubin 0.2 MG/DL (0.2-1.0) Aspartate Amino Transf (AST/SGOT) 35 U/L (15-37) Alanine Aminotransferase (ALT/SGPT) 21 U/L (12-78) Alkaline Phosphatase 46 U/L (46-116) Total Creatine Kinase 133 U/L (26-308) Creatine Kinase MB 1.2 NG/ML (0.0-3.6) Creatine Kinase MB Relative Index 0.9 Total Protein 6.6 G/DL (6.4-8.2) Albumin 2.7 G/DL (3.4-5.0) Globulin 3.9 g/dL Albumin/Globulin Ratio 0.7 (1.0-2.7) EKG Diagnostic Results Rate: normal - 82 Rhythm: NSR ST Segments: no acute changes Last Vital Signs Date Time Temp Pulse Resp B/P (MAP) Pulse Ox O2 Delivery O2 Flow Rate FiO2 05/30/19 11:07 97.0 82 16 160/83 (108) 96 Room Air Status: unchanged Disposition: ADMITTED INPATIENT Condition: Critical Johnny Roque MD May 30, 2019 11:33
[2019-05-30] MEDS ORDERED: Acetaminophen 500mg (ES) tab ORAL ONE (11:45)
[2019-05-30] MEDS ORDERED: cefTRIAXone 1 GM in NS 55 ML IVPB ONE (11:45)
[2019-05-30 12:44] LABS: ANION GAP 8 mmol/L (5-15); BLOOD UREA NITROGEN 18 mg/dL (7-18); CALCIUM 9.4 MG/DL (8.5-10.1); CARBON DIOXIDE 25 MMOL/L (21-32); CHLORIDE 109 MMOL/L (98-107); CREATININE 0.6 MG/DL (0.55-1.30); POTASSIUM 4.2 MMOL/L (3.5-5.1); SODIUM 142 MMOL/L (136-145)
[2019-05-30 12:55] LABS: HEMATOCRIT 40.6 % (37.0-47.0); HEMOGLOBIN 13.9 G/DL (12.0-16.0); MEAN CORPUSCULAR VOLUME 86 FL (80-99); RED BLOOD COUNT 4.71 M/UL (4.20-5.40); RED CELL DISTRIBUTION WIDTH 12.8 % (11.6-14.8); WHITE BLOOD COUNT 3.5 K/UL (4.8-10.8)
[2019-05-30 12:56] LABS: INR 0.9 (0.9-1.1)
[2019-05-30 12:58] LABS: ALANINE AMINOTRANSFERASE 21 U/L (12-78); ALBUMIN 2.7 G/DL (3.4-5.0); ALBUMIN/GLOBULIN RATIO 0.7 (1.0-2.7); ALKALINE PHOSPHATASE 46 U/L (46-116); ASPARTATE AMINO TRANSFERASE 35 U/L (15-37); BILIRUBIN,TOTAL 0.2 MG/DL (0.2-1.0); CKMB 1.2 NG/ML (0.0-3.6); CREATINE KINASE 133 U/L (26-308)
[2019-05-30 13:05] LABS: APPEARANCE,URINE SLIGHTLY CLOUDY; BILIRUBIN, URINE NEGATIVE (NEGATIVE); GLUCOSE, URINE (UA) NEGATIVE (NEGATIVE); KETONES,URINE 1+ (NEGATIVE); LEUKOCYTE ESTERASE ,URINE 1+ (NEGATIVE); NITRITE,URINE NEGATIVE (NEGATIVE); PH,URINE 6 (4.5-8.0); PROTEIN,URINE 1+ (NEGATIVE); UROBILINOGEN,URINE 8 MG/DL (0.0-1.0)
[2019-05-30 13:10] LABS: COLOR,URINE YELLOW
--- NOTE | 2019-05-30 13:36 | Diagnostic Imaging Report ---
Indication: Cough Technique: One view of the chest Comparison: 02/24/2018 Findings: Patient rotated to the right. There is suggestion of some hazy infiltrate in the right midlung periphery. The remainder of the lungs and pleural spaces are clear. The heart size is normal. The aorta is tortuous Impression: Questionable right midlung hazy infiltrate. Correlate with clinical findings
--- NOTE | 2019-05-30 13:38 | Diagnostic Imaging Report ---
Indication: Abdominal distention Technique: Supine view of the abdomen Comparison: 11/14/2017 Findings: There is a gastrostomy tube in place. The bowel gas pattern is unremarkable. No masses or unusual calcifications. There are degenerative changes of the lumbar spine Impression: No acute process
[2019-05-30 14:32] LABS: PLATELET COUNT 84 K/UL (150-450)
--- NOTE | 2019-05-30 14:47 | General Progress Note ---
Assessment/Plan Problem List: (1) Suspected 2019 novel coronavirus infection ICD Codes: R68.89 - Other general symptoms and signs SNOMED: 313966959 (2) Lower GI bleed ICD Codes: K92.2 - Gastrointestinal hemorrhage, unspecified SNOMED: 30290830 (3) Thrombocytopenia ICD Codes: D69.6 - Thrombocytopenia, unspecified SNOMED: 041006563 (4) Diabetes mellitus ICD Codes: E11.9 - Type 2 diabetes mellitus without complications SNOMED: 47057284 (5) HTN (hypertension) ICD Codes: I10 - Essential (primary) hypertension SNOMED: 61272238 Assessment/Plan: neg GT lavage transfuse PLT prep for possible colonoscopy Subjective ROS Limited/Unobtainable: No Allergies: Coded Allergies: IODINE (Verified Allergy, Unknown, 11/10/17) Objective Last 24 Hour Vital Signs Date Time Temp Pulse Resp B/P (MAP) Pulse Ox O2 Delivery O2 Flow Rate FiO2 05/30/19 14:22 102.0 82 21 124/75 95 Room Air 05/30/19 12:36 97.0 05/30/19 12:15 102.7 87 21 122/71 94 Room Air 05/30/19 12:15 87 21 Room Air 94 05/30/19 11:07 97.0 82 16 160/83 (108) 96 Room Air Laboratory Tests 05/30/19 11:30: White Blood Count 3.5L, Red Blood Count 4.71, Hemoglobin 13.9, Hematocrit 40.6, Mean Corpuscular Volume 86, Mean Corpuscular Hemoglobin 29.5, Mean Corpuscular Hemoglobin Concent 34.3, Red Cell Distribution Width 12.8, Platelet Count 84L, Mean Platelet Volume 8.5, Neutrophils (%) (Auto) , Lymphocytes (%) (Auto) , Monocytes (%) (Auto) , Eosinophils (%) (Auto) , Basophils (%) (Auto) , Differential Total Cells Counted 100, Neutrophils % (Manual) 55, Lymphocytes % ( Manual) 37, Monocytes % (Manual) 6, Eosinophils % (Manual) 1, Basophils % ( Manual) 0, Band Neutrophils 1, Platelet Estimate DecreasedL, Platelet Morphology Normal, Red Blood Cell Morphology Normal, Prothrombin Time 9.6, Prothromb Time International Ratio 0.9, Activated Partial Thromboplast Time 23, Lactic Acid Level 1.00, Troponin I 0.000 05/30/19 12:30: Urine Color Yellow, Urine Appearance Slightly cloudy, Urine pH 6, Urine Specific [place] 1.015, Urine Protein 1+H, Urine Glucose (UA) Negative, Urine Ketones 1+H, Urine Blood 5+H, Urine Nitrite Negative, Urine Bilirubin Negative, Urine Urobilinogen 8H, Urine Leukocyte Esterase 1+H, Urine RBC 15-20H, Urine WBC 2-4, Urine Squamous Epithelial Cells Occasional, Urine Bacteria Few, Sodium Level 142, Potassium Level 4.2, Chloride Level 109H, Carbon Dioxide Level 25, Anion Gap 8, Blood Urea Nitrogen 18, Creatinine 0.6, Estimat Glomerular Filtration Rate > 60, Glucose Level 111H, Calcium Level 9.4, Total Bilirubin 0.2 , Aspartate Amino Transf (AST/SGOT) 35, Alanine Aminotransferase (ALT/SGPT) 21, Alkaline Phosphatase 46, Total Creatine Kinase 133, Creatine Kinase MB 1.2, Creatine Kinase MB Relative Index 0.9, Total Protein 6.6, Albumin 2.7L, Globulin 3.9, Albumin/Globulin Ratio 0.7L Height (Feet): 5 Height (Inches): 3.00 Weight (Pounds): 150 General Appearance: lethargic EENT: normal ENT inspection Neck: supple Cardiovascular: tachycardia Respiratory/Chest: decreased breath sounds Abdomen: normal bowel sounds, non tender, soft Extremities: non-tender Thang Doan MD May 30, 2019 14:47
--- NOTE | 2019-05-30 15:00 | Consultation ---
History of Present Illness General Date patient seen: May 30, 2019 Reason for Hospitalization: Gastrointestinal Bleed Present Illness HPI 74 year old female longterm resident with multiple medical comorbidities who was noted to have acute onset of bright red blood per rectum. transferred to [facility] ED for evaluation. surgery called to evaluate and assist with care. patient seen, chart reviewed, patient examined. she is alert and awake but cannot provide history. confused and only somewhat responds to exam/commands. no n/v/f/c. blood for one day and told to be profound. currently no bleeding. labs noted. imagine reviewed. patient initially seen and evaluated in ED urgently. Allergies: Coded Allergies: IODINE (Verified Allergy, Unknown, 11/10/17) COVID-19 Screening Contact w/high risk pt: No Recent Travel to affected area: No Experienced COVID-19 symptoms?: No Medication History Scheduled Amlodipine Besylate* (Amlodipine Besylate*), 5 MG GT DAILY, (Reported) Aspirin* (Aspir-Low*), 81 MG GT DAILY, (Reported) Carvedilol* (Carvedilol*), 6.25 MG GT TWICE A DAY, (Reported) Docusate Sodium (Docusate Sodium), 50 MG GT BID, (Reported) Escitalopram Oxalate* (Lexapro*), 10 MG GT DAILY, (Reported) Lactose-Reduced Food/Fiber (Jevity 1.5 Manolo Liquid), 910 ML GT 65 ML/HR FOR 14 HRS , (Reported) Multivitamin (Multivitamins), 1 EACH GT DAILY, (Reported) [place]-3 Fatty Acids/Fish Oil (Fish Oil 1,000 Mg Softgel), 1 CAP GT DAILY, ( Reported) Omeprazole (Omeprazole), 20 MG GT DAILY, (Reported) Polyethylene Glycol 3350* (Polyethylene Glycol 3350*), 17 GM GT DAILY, (Reported ) Pravastatin Sod* (Pravastatin Sod*), 80 MG GT BEDTIME, (Reported) Risperidone* (Risperdal*), 1 MG GT BID, (Reported) Sennosides (Senna), 17.2 MG GT BEDTIME, (Reported) Valproate Sodium (Valproic Acid), 10 ML GT Q12HR, (Reported) Scheduled PRN Magnesium Hydroxide* (Milk Of Magnesia*), 30 ML ORAL DAILY PRN for Constipation, (Reported) Tramadol Hcl* (Ultram*), 25 MG GT Q8HR PRN for For Pain, (Reported) Patient History Limited by: medical condition History Provided By: Medical Record, PMD Healthcare decision maker Resuscitation status Advanced Directive on File Past Medical/Surgical History Past Medical/Surgical History: (1) Episode of generalized weakness (2) Encephalopathy (3) Constipation (4) Hypercalcemia (5) Dysphagia (6) Altered level of consciousness (7) Toxic encephalopathy (8) Thrombocytopenia (9) GIB (gastrointestinal bleeding) (10) Epilepsy (11) Lower GI bleed (12) CVA (cerebral vascular accident) (13) Acute febrile illness (14) Suspected 2019 novel coronavirus infection (15) Diabetes mellitus (16) HTN (hypertension) Review of Systems Review of Symptoms General ROS: no weight loss or fever Psychological ROS: no depression or mood changes, no memory loss Ophthalmic ROS: no visual changes or eye irritation ENT ROS: no nasal congestion, hearing loss, dizziness Allergy and Immunology ROS: no allergic symptoms or urticaria Hematological and Lymphatic ROS: no swollen glands, unusual bleeding or bruising Endocrine ROS: no polyuria, polydipsia, weight changes, temperature intolerance Respiratory ROS: no cough, shortness of breath, or wheezing Cardiovascular ROS: no chest pain or dyspnea on exertion Gastrointestinal ROS: denies abdominal pain, bright red blood in stool. Musculoskeletal ROS: no myalgias or arthralgias Neurological ROS: no TIA or stroke symptoms Dermatological ROS: no new or changing skin lesions, rashes or pruritis limited given patients mental status Physical Exam Physical Exam General appearance: alert, cooperative, no distress, appears stated age Head: Normocephalic, without obvious abnormality, atraumatic Eyes: conjunctivae/corneas clear. PERRL, EOM's intact. Fundi benign Throat: Lips, mucosa, and tongue normal. Teeth and gums normal Neck: supple, symmetrical, trachea midline, no adenopathy, thyroid: not enlarged, symmetric, no tenderness/mass/nodules, no carotid bruit and no JVD Lungs: clear to auscultation bilaterally Heart: regular rate and rhythm, S1, S2 normal, no murmur, click, rub or gallop Abdomen: soft, non-tender. Bowel sounds normal. No masses, no organomegaly. g tube in place. stool with blood noted on cydney but no active bleeding Extremities: extremities normal, atraumatic, no cyanosis or edema contracted Pulses: 2+ and symmetric Skin: Skin color, texture, turgor normal. No rashes or lesions Neurologic: Grossly normal Last 24 Hour Vital Signs Date Time Temp Pulse Resp B/P (MAP) Pulse Ox O2 Delivery O2 Flow Rate FiO2 05/30/19 14:22 102.0 82 21 124/75 95 Room Air 05/30/19 12:36 97.0 05/30/19 12:15 102.7 87 21 122/71 94 Room Air 05/30/19 12:15 87 21 Room Air 94 05/30/19 11:07 97.0 82 16 160/83 (108) 96 Room Air Laboratory Tests Test 05/30/19 11:30 05/30/19 12:30 White Blood Count 3.5 K/UL (4.8-10.8) L Red Blood Count 4.71 M/UL (4.20-5.40) Hemoglobin 13.9 G/DL (12.0-16.0) Hematocrit 40.6 % (37.0-47.0) Mean Corpuscular Volume 86 FL (80-99) Mean Corpuscular Hemoglobin 29.5 PG (27.0-31.0) Mean Corpuscular Hemoglobin Concent 34.3 G/DL (32.0-36.0) Red Cell Distribution Width 12.8 % (11.6-14.8) Platelet Count 84 K/UL (150-450) L Mean Platelet Volume 8.5 FL (6.5-10.1) Neutrophils (%) (Auto) % (45.0-75.0) Lymphocytes (%) (Auto) % (20.0-45.0) Monocytes (%) (Auto) % (1.0-10.0) Eosinophils (%) (Auto) % (0.0-3.0) Basophils (%) (Auto) % (0.0-2.0) Differential Total Cells Counted 100 Neutrophils % (Manual) 55 % (45-75) Lymphocytes % (Manual) 37 % (20-45) Monocytes % (Manual) 6 % (1-10) Eosinophils % (Manual) 1 % (0-3) Basophils % (Manual) 0 % (0-2) Band Neutrophils 1 % (0-8) Platelet Estimate Decreased L Platelet Morphology Normal Red Blood Cell Morphology Normal Prothrombin Time 9.6 SEC (9.30-11.50) Prothromb Time International Ratio 0.9 (0.9-1.1) Activated Partial Thromboplast Time 23 SEC (23-33) Lactic Acid Level 1.00 mmol/L (0.4-2.0) Troponin I 0.000 ng/mL (0.000-0.056) Urine Color Yellow Urine Appearance Slightly cloudy Urine pH 6 (4.5-8.0) Urine Specific [place] 1.015 (1.005-1.035) Urine Protein 1+ (NEGATIVE) H Urine Glucose (UA) Negative (NEGATIVE) Urine Ketones 1+ (NEGATIVE) H Urine Blood 5+ (NEGATIVE) H Urine Nitrite Negative (NEGATIVE) Urine Bilirubin Negative (NEGATIVE) Urine Urobilinogen 8 MG/DL (0.0-1.0) H Urine Leukocyte Esterase 1+ (NEGATIVE) H Urine RBC 15-20 /HPF (0 - 2) H Urine WBC 2-4 /HPF (0 - 2) Urine Squamous Epithelial Cells Occasional /LPF Urine Bacteria Few /HPF (NONE) Sodium Level 142 MMOL/L (136-145) Potassium Level 4.2 MMOL/L (3.5-5.1) Chloride Level 109 MMOL/L (98-107) H Carbon Dioxide Level 25 MMOL/L (21-32) Anion Gap 8 mmol/L (5-15) Blood Urea Nitrogen 18 mg/dL (7-18) Creatinine 0.6 MG/DL (0.55-1.30) Estimat Glomerular Filtration Rate > 60 mL/min (>60) Glucose Level 111 MG/DL (74-106) H Calcium Level 9.4 MG/DL (8.5-10.1) Total Bilirubin 0.2 MG/DL (0.2-1.0) Aspartate Amino Transf (AST/SGOT) 35 U/L (15-37) Alanine Aminotransferase (ALT/SGPT) 21 U/L (12-78) Alkaline Phosphatase 46 U/L (46-116) Total Creatine Kinase 133 U/L (26-308) Creatine Kinase MB 1.2 NG/ML (0.0-3.6) Creatine Kinase MB Relative Index 0.9 Total Protein 6.6 G/DL (6.4-8.2) Albumin 2.7 G/DL (3.4-5.0) L Globulin 3.9 g/dL Albumin/Globulin Ratio 0.7 (1.0-2.7) L Height (Feet): 5 Height (Inches): 3.00 Weight (Pounds): 150 Medications Current Medications Medications (Trade) Dose Ordered Sig/Claritza Route PRN Reason Start Time Stop Time Status Last Admin Dose Admin Acetaminophen (Tylenol) 650 mg Q4H PRN ORAL Mild Pain (Pain Scale 1-3) 05/30/19 13:30 06/29/19 13:29 Acetaminophen (Tylenol) 650 mg Q4H PRN ORAL T>100.4 05/30/19 13:30 06/29/19 13:29 Dextrose (Dextrose 50%) 25 ml Q30M PRN IV Hypoglycemia 05/30/19 13:30 08/28/19 13:29 Dextrose (Dextrose 50%) 50 ml Q30M PRN IV Hypoglycemia 05/30/19 13:30 08/28/19 13:29 Polyethylene Glycol/ Electrolytes (Nulytely) 4,000 ml ONCE ORAL 05/30/19 16:00 05/30/19 23:59 Assessment/Plan Problem List: (1) Episode of generalized weakness ICD Codes: R53.1 - Weakness SNOMED: 46026941 (2) Encephalopathy ICD Codes: G93.40 - Encephalopathy SNOMED: 42091951 (3) Constipation ICD Codes: K59.00 - Constipation, unspecified SNOMED: 80866817 (4) Hypercalcemia ICD Codes: E83.52 - Hypercalcemia SNOMED: 44852861 (5) Dysphagia ICD Codes: R13.10 - Dysphagia, unspecified SNOMED: 08660255, 409524968 (6) Altered level of consciousness ICD Codes: R40.4 - Transient alteration of awareness SNOMED: 0223244 (7) Toxic encephalopathy ICD Codes: G92 - Toxic encephalopathy SNOMED: 28025615 (8) Thrombocytopenia ICD Codes: D69.6 - Thrombocytopenia, unspecified SNOMED: 041482030 (9) GIB (gastrointestinal bleeding) Assessment & Plan: Upper GI lavage with g tube no blood likely lower gi bleed diverticuli? appreciate GI input consider colonoscopy if rebleeds trend h/h abd exam benign no acute surgical intervention planned will follow with recs thank you ICD Codes: K92.2 - Gastrointestinal hemorrhage, unspecified SNOMED: 70590795 (10) Lower GI bleed Assessment & Plan: Findings: There is a gastrostomy tube in place. The bowel gas pattern is unremarkable. No masses or unusual calcifications. There are degenerative changes of the lumbar spine Impression: No acute process ICD Codes: K92.2 - Gastrointestinal hemorrhage, unspecified SNOMED: 31553713 (11) Epilepsy ICD Codes: G40.909 - Epilepsy, unspecified, not intractable, without status epilepticus SNOMED: 85197910 (12) Acute febrile illness ICD Codes: R50.9 - Fever, unspecified SNOMED: 131100460 (13) CVA (cerebral vascular accident) ICD Codes: I63.9 - Cerebral infarction, unspecified SNOMED: 791788515 (14) Suspected 2019 novel coronavirus infection ICD Codes: R68.89 - Other general symptoms and signs SNOMED: 893577999 (15) Diabetes mellitus ICD Codes: E11.9 - Type 2 diabetes mellitus without complications SNOMED: 43088492 (16) HTN (hypertension) ICD Codes: I10 - Essential (primary) hypertension SNOMED: 49016650 Tomi Ordoñez May 30, 2019 15:00
--- NOTE | 2019-05-30 15:59 | Consultation ---
DATE OF CONSULTATION: 05/30/2019 PULMONARY CONSULTATION HISTORY OF PRESENT ILLNESS: This is a 74-year-old female who is a care home resident. The care home has had COVID-19 outbreak. The patient was sent in with rectal bleeding. There was no upper GI bleeding. The patient is mildly short of breath. She is a Full Code. She is G-tube dependent. The patient is unable to provide any further history. PAST MEDICAL HISTORY: Notable for previous TIA/CVA, hypertension, chronic dysphagia, previous CVA. MEDICATIONS: Home medications reviewed and reconciled. REVIEW OF SYSTEMS: Unreliable. PHYSICAL EXAMINATION: GENERAL: Reveals a elderly female. VITAL SIGNS: Blood pressure is 160/80, heart rate is 84, respiratory rate 18, O2 saturation . HEENT: Unremarkable. CHEST: Diminished breath sounds bilaterally. HEART: Normal heart sounds. ABDOMEN: Soft. There is a G-tube in place. Stool per ER physician shows maroon-colored stool. EXTREMITIES: There is no edema. LABORATORY AND DIAGNOSTIC DATA: Lab show white count 3.5, glucose 111. Coags are normal. Urinalysis negative. Imaging studies, x-ray chest was obtained, which shows right mid lung infiltrate. IMPRESSION: 1. Rectal bleeding. 2. Right lung pneumonia. 3. CVA. 4. [facility] resident. 5. . DISCUSSION: Admitted to the hospital. We will recommend rule out COVID-19 given her risk factors. 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 We will order oxygen and pulmonary hygiene. We will follow carefully. Horace Landaverde M.D. DR: Gregorio JOB#: [id number] CC:
[2019-05-30] MEDS ORDERED: Nulytely 4L ORAL SCH (16:00)
--- NOTE | 2019-05-30 16:27 | History and Physical ---
History of Present Illness General Reason for Hospitalization: Gastrointestinal Bleed Present Illness HPI 74-year-old female from [facility] w/PMH CVA, dysphasia s/p PEG, dementia, epilepsy, ?DMT2 who presents with bright red blood per rectum. Patient came facility with multiple COVID positive patients, patient is pending COVID rule out. Patient poor historian/minimally communicative, history very limited due to clinical picture, history obtained via chart review and nurse from [place]. Patient's baseline mentation is unknown, nurse went to turn patient this a.m. and noted BRBPR with clumps of blood, patient at that time was diaphoretic, SPO2 90s, and nurse sent patient to the ED for further treatment and evaluation. In the ED, patient awake, alert, however noncommunicative, appears comfortable. Patient admitted for further treatment and evaluation. PMH: CVA, dysphasia s/p PEG tube, severe dementia, ?DMT2, HLD, epilepsy FHx: Reviewed and not pertinent SH: from [facility], otherwise limited due to patient communication Allergies: Iodine Allergies: Coded Allergies: IODINE (Verified Allergy, Unknown, 11/10/17) COVID-19 Screening Contact w/high risk pt: No Recent Travel to affected area: No Experienced COVID-19 symptoms?: No Medication History Scheduled Amlodipine Besylate* (Amlodipine Besylate*), 5 MG GT DAILY, (Reported) Aspirin* (Aspir-Low*), 81 MG GT DAILY, (Reported) Carvedilol* (Carvedilol*), 6.25 MG GT TWICE A DAY, (Reported) Docusate Sodium (Docusate Sodium), 50 MG GT BID, (Reported) Escitalopram Oxalate* (Lexapro*), 10 MG GT DAILY, (Reported) Lactose-Reduced Food/Fiber (Jevity 1.5 Manolo Liquid), 910 ML GT 65 ML/HR FOR 14 HRS , (Reported) Multivitamin (Multivitamins), 1 EACH GT DAILY, (Reported) [place]-3 Fatty Acids/Fish Oil (Fish Oil 1,000 Mg Softgel), 1 CAP GT DAILY, ( Reported) Omeprazole (Omeprazole), 20 MG GT DAILY, (Reported) Polyethylene Glycol 3350* (Polyethylene Glycol 3350*), 17 GM GT DAILY, (Reported ) Pravastatin Sod* (Pravastatin Sod*), 80 MG GT BEDTIME, (Reported) Risperidone* (Risperdal*), 1 MG GT BID, (Reported) Sennosides (Senna), 17.2 MG GT BEDTIME, (Reported) Valproate Sodium (Valproic Acid), 10 ML GT Q12HR, (Reported) Scheduled PRN Magnesium Hydroxide* (Milk Of Magnesia*), 30 ML ORAL DAILY PRN for Constipation, (Reported) Tramadol Hcl* (Ultram*), 25 MG GT Q8HR PRN for For Pain, (Reported) Patient History Healthcare decision maker Resuscitation status Advanced Directive on File Review of Systems ROS Narrative Unable to obtain due to clinical picture, patient minimally communicative. Physical Exam Physical Exam Narrative General: NAD, A&O x 1, awake, alert, noncommunicative HEENT: NCAT, EOMi, dry mucous membranes CV: RRR, no murmurs, rubs, or gallops Pulm: CTAB, No wheezes, rhonchi, or rales, no accessory muscle usage or conversational dyspnea GI: Soft, nontender, nondistended, bowel sounds present, +PEG c/d/i Neuro: Limited due to patient communication/participation Ext: No lower extremity edema bilaterally Skin: no rashes lesions or ulcers Last 24 Hour Vital Signs Date Time Temp Pulse Resp B/P (MAP) Pulse Ox O2 Delivery O2 Flow Rate FiO2 05/30/19 15:20 98.9 82 21 05/30/19 14:22 102.0 82 21 124/75 95 Room Air 05/30/19 12:36 97.0 05/30/19 12:15 102.7 87 21 122/71 94 Room Air 05/30/19 12:15 87 21 Room Air 94 05/30/19 11:07 97.0 82 16 160/83 (108) 96 Room Air Laboratory Tests Test 05/30/19 11:30 05/30/19 12:30 White Blood Count 3.5 K/UL (4.8-10.8) L Red Blood Count 4.71 M/UL (4.20-5.40) Hemoglobin 13.9 G/DL (12.0-16.0) Hematocrit 40.6 % (37.0-47.0) Mean Corpuscular Volume 86 FL (80-99) Mean Corpuscular Hemoglobin 29.5 PG (27.0-31.0) Mean Corpuscular Hemoglobin Concent 34.3 G/DL (32.0-36.0) Red Cell Distribution Width 12.8 % (11.6-14.8) Platelet Count 84 K/UL (150-450) L Mean Platelet Volume 8.5 FL (6.5-10.1) Neutrophils (%) (Auto) % (45.0-75.0) Lymphocytes (%) (Auto) % (20.0-45.0) Monocytes (%) (Auto) % (1.0-10.0) Eosinophils (%) (Auto) % (0.0-3.0) Basophils (%) (Auto) % (0.0-2.0) Differential Total Cells Counted 100 Neutrophils % (Manual) 55 % (45-75) Lymphocytes % (Manual) 37 % (20-45) Monocytes % (Manual) 6 % (1-10) Eosinophils % (Manual) 1 % (0-3) Basophils % (Manual) 0 % (0-2) Band Neutrophils 1 % (0-8) Platelet Estimate Decreased L Platelet Morphology Normal Red Blood Cell Morphology Normal Prothrombin Time 9.6 SEC (9.30-11.50) Prothromb Time International Ratio 0.9 (0.9-1.1) Activated Partial Thromboplast Time 23 SEC (23-33) Lactic Acid Level 1.00 mmol/L (0.4-2.0) Troponin I 0.000 ng/mL (0.000-0.056) Urine Color Yellow Urine Appearance Slightly cloudy Urine pH 6 (4.5-8.0) Urine Specific [place] 1.015 (1.005-1.035) Urine Protein 1+ (NEGATIVE) H Urine Glucose (UA) Negative (NEGATIVE) Urine Ketones 1+ (NEGATIVE) H Urine Blood 5+ (NEGATIVE) H Urine Nitrite Negative (NEGATIVE) Urine Bilirubin Negative (NEGATIVE) Urine Urobilinogen 8 MG/DL (0.0-1.0) H Urine Leukocyte Esterase 1+ (NEGATIVE) H Urine RBC 15-20 /HPF (0 - 2) H Urine WBC 2-4 /HPF (0 - 2) Urine Squamous Epithelial Cells Occasional /LPF Urine Bacteria Few /HPF (NONE) Sodium Level 142 MMOL/L (136-145) Potassium Level 4.2 MMOL/L (3.5-5.1) Chloride Level 109 MMOL/L (98-107) H Carbon Dioxide Level 25 MMOL/L (21-32) Anion Gap 8 mmol/L (5-15) Blood Urea Nitrogen 18 mg/dL (7-18) Creatinine 0.6 MG/DL (0.55-1.30) Estimat Glomerular Filtration Rate > 60 mL/min (>60) Glucose Level 111 MG/DL (74-106) H Calcium Level 9.4 MG/DL (8.5-10.1) Total Bilirubin 0.2 MG/DL (0.2-1.0) Aspartate Amino Transf (AST/SGOT) 35 U/L (15-37) Alanine Aminotransferase (ALT/SGPT) 21 U/L (12-78) Alkaline Phosphatase 46 U/L (46-116) Total Creatine Kinase 133 U/L (26-308) Creatine Kinase MB 1.2 NG/ML (0.0-3.6) Creatine Kinase MB Relative Index 0.9 Total Protein 6.6 G/DL (6.4-8.2) Albumin 2.7 G/DL (3.4-5.0) L Globulin 3.9 g/dL Albumin/Globulin Ratio 0.7 (1.0-2.7) L Height (Feet): 5 Height (Inches): 3.00 Weight (Pounds): 150 Medications Current Medications Medications (Trade) Dose Ordered Sig/Claritza Route PRN Reason Start Time Stop Time Status Last Admin Dose Admin Acetaminophen (Tylenol) 650 mg Q4H PRN ORAL Mild Pain (Pain Scale 1-3) 05/30/19 13:30 06/29/19 13:29 Acetaminophen (Tylenol) 650 mg Q4H PRN ORAL T>100.4 05/30/19 13:30 06/29/19 13:29 Dextrose (Dextrose 50%) 25 ml Q30M PRN IV Hypoglycemia 05/30/19 13:30 08/28/19 13:29 Dextrose (Dextrose 50%) 50 ml Q30M PRN IV Hypoglycemia 05/30/19 13:30 08/28/19 13:29 Polyethylene Glycol/ Electrolytes (Nulytely) 4,000 ml ONCE ORAL 05/30/19 16:00 05/30/19 23:59 Assessment/Plan Assessment/Plan: 74-year-old female from [facility] w/PMH CVA, dysphasia s/p PEG, dementia, epilepsy, ?DMT2 who presents with bright red blood per rectum, GIB. Patient came facility with multiple COVID positive patients, patient is pending COVID rule out. #Acute blood loss anemia #Acute GIB -admit to SDU, cardiac monitoring -Hgb stable on admission -cont. to monitor hgb, transfuse for hgb <7 -IVF -Protonix given in ED -GI consulted, Dr Doan: GT lavage neg, transfuse plts, prep for possible colonoscopy -General sx consulted, recs appreciated -Cardio consulted for pre-op #COVID exposure #Fever -fever 102.7 rectal in ED, suspect intrabd source -droplet precautions -COVID pending -KUB negative -CXR ?right lung infiltrate -BCx pending -d/w ID (Dr. Campbell) cont. CTX and flagyl -Pulm (Dr. Landaverde) on board, recs appreciated #?DMT2 -per chart review pt w/h/o DM -no medications seen in [facility] from [place] -BG 111 on admission -will check A1C #HTN #HLD -holding ASA given acute GIB -cont. home coreg w/hold parameters #H/o Epilepsy #Seizures #?Dementia -no seizure activity reported by [place] -cont. valproic acid -check valproic acid level -cont. home risperdol -Neuro, Dr. Juarez, consulted, recs appreciated #Dysphagia s/p PEG -TF per nutrition DVT PPx: SCDs given acute GIB Time spent on encounter: 70 mins, >50% on counseling, coordination of care. Additional 40 minutes spent with chart review, discussing with nurse from detention and consultants Time of note doesn't reflect time of encounter. Tori Hill M.D. May 30, 2019 16:27
[2019-05-30] MEDS ORDERED: traMADol 50mg tab GT PRN ×2 (16:45→17:30)
[2019-05-30] MEDS ORDERED: Milk of Magnesia 30ml Ud ORAL PRN (16:45)
[2019-05-30] MEDS ORDERED: Acetaminophen 650mg/20.3ml GT PRN (17:00)
[2019-05-30] MEDS: metroNIDAZOLE 500mg tab GT SCH ×2 (18:16→23:20)
[2019-05-30] MEDS: Carvedilol 6.25mg Tab GT SCH (21:50)
[2019-05-30] MEDS: Valproic Acid 250mg/5ml Liquid GT SCH (21:51)
[2019-05-31] VITALS (23 sets, daily range): BP systolic 98–171; BP diastolic 42–85
[2019-05-31 05:37] LABS: BASOPHILS % (AUTO) 0.5 % (0.0-2.0); EOSINOPHILS % (AUTO) 0.4 % (0.0-3.0); HEMATOCRIT 30.7 % (37.0-47.0); HEMOGLOBIN 10.4 G/DL (12.0-16.0); LYMPHOCYTES % (AUTO) 24.7 % (20.0-45.0); MEAN CORPUSCULAR VOLUME 86 FL (80-99); MONOCYTES % (AUTO) 13.8 % (1.0-10.0); NEUTROPHILS % (AUTO) 60.7 % (45.0-75.0); PLATELET COUNT 126 K/UL (150-450); RED BLOOD COUNT 3.58 M/UL (4.20-5.40); RED CELL DISTRIBUTION WIDTH 13.2 % (11.6-14.8); WHITE BLOOD COUNT 4.1 K/UL (4.8-10.8)
[2019-05-31 05:49] LABS: ANION GAP 12 mmol/L (5-15); BLOOD UREA NITROGEN 10 mg/dL (7-18); CALCIUM 8.4 MG/DL (8.5-10.1); CARBON DIOXIDE 23 MMOL/L (21-32); CHLORIDE 110 MMOL/L (98-107); CREATININE 0.5 MG/DL (0.55-1.30); POTASSIUM 3.1 MMOL/L (3.5-5.1); SODIUM 145 MMOL/L (136-145)
[2019-05-31] MEDS: metroNIDAZOLE 500mg tab GT SCH ×3 (06:10→17:24)
[2019-05-31] MEDS: Carvedilol 6.25mg Tab GT SCH (08:19)
[2019-05-31] MEDS: Valproic Acid 250mg/5ml Liquid GT SCH ×2 (08:28→21:00)
[2019-05-31] MEDS: cefTRIAXone 1 GM in NS 55 ML IVPB SCH (09:10)
--- NOTE | 2019-05-31 09:26 | General Progress Note ---
Assessment/Plan Problem List: (1) Suspected 2019 novel coronavirus infection ICD Codes: R68.89 - Other general symptoms and signs SNOMED: 644873509 (2) Lower GI bleed ICD Codes: K92.2 - Gastrointestinal hemorrhage, unspecified SNOMED: 07198483 (3) Thrombocytopenia ICD Codes: D69.6 - Thrombocytopenia, unspecified SNOMED: 719862159 (4) Diabetes mellitus ICD Codes: E11.9 - Type 2 diabetes mellitus without complications SNOMED: 07909811 (5) HTN (hypertension) ICD Codes: I10 - Essential (primary) hypertension SNOMED: 19365914 Assessment/Plan: neg GT lavage s/p PLT transfusion ? diverticular bleed no recurrent bleeding over night patient is prepd for colonoscopy but given bradycardia, COVID isolation and decrease bleeding will hold colonoscopy for today keep NPO for today replace K will fu Subjective ROS Limited/Unobtainable: No Allergies: Coded Allergies: IODINE (Verified Allergy, Unknown, 11/10/17) Objective Last 24 Hour Vital Signs Date Time Temp Pulse Resp B/P (MAP) Pulse Ox O2 Delivery O2 Flow Rate FiO2 05/31/19 08:22 43 123/52 05/31/19 08:19 43 123/52 05/31/19 07:00 68 17 110/64 (79) 97 05/31/19 06:00 54 16 98/54 (69) 98 05/31/19 05:00 58 17 114/63 (80) 96 05/31/19 04:00 Room Air 05/31/19 04:00 98.8 67 17 130/54 (79) 95 05/31/19 03:30 47 05/31/19 03:12 65 05/31/19 03:00 32 16 125/67 (86) 95 05/31/19 02:30 29 05/31/19 02:00 56 17 141/55 (83) 96 05/31/19 01:30 34 05/31/19 01:00 48 15 97 05/31/19 00:27 61 05/31/19 00:00 98.8 47 14 120/49 (72) 97 05/31/19 00:00 Room Air 05/30/19 23:00 59 23 131/102 (112) 94 05/30/19 22:21 99.1 65 20 121/74 (90) 93 05/30/19 22:21 99.1 65 20 121/74 (90) 93 05/30/19 22:15 Room Air 05/30/19 22:10 99.7 81 19 139/60 98 Room Air 94 05/30/19 21:50 56 139/60 05/30/19 21:50 99.7 81 19 137/75 98 Room Air 94 05/30/19 19:41 99.1 77 19 119/59 98 Room Air 94 05/30/19 18:22 98.9 74 19 120/55 98 Room Air 05/30/19 17:30 99.2 74 18 144/106 99 Room Air 05/30/19 17:20 98.9 82 21 131/97 97 Room Air 05/30/19 16:22 99.0 84 21 153/107 97 Room Air 05/30/19 15:35 99.0 88 17 123/73 99 Room Air 94 05/30/19 15:20 98.9 82 21 05/30/19 14:22 102.0 82 21 124/75 95 Room Air 05/30/19 12:36 97.0 05/30/19 12:15 102.7 87 21 122/71 94 Room Air 05/30/19 12:15 87 21 Room Air 94 05/30/19 11:07 97.0 82 16 160/83 (108) 96 Room Air Laboratory Tests 05/30/19 11:30: White Blood Count 3.5L, Red Blood Count 4.71, Hemoglobin 13.9, Hematocrit 40.6, Mean Corpuscular Volume 86, Mean Corpuscular Hemoglobin 29.5, Mean Corpuscular Hemoglobin Concent 34.3, Red Cell Distribution Width 12.8, Platelet Count 84L, Mean Platelet Volume 8.5, Neutrophils (%) (Auto) , Lymphocytes (%) (Auto) , Monocytes (%) (Auto) , Eosinophils (%) (Auto) , Basophils (%) (Auto) , Differential Total Cells Counted 100, Neutrophils % (Manual) 55, Lymphocytes % ( Manual) 37, Monocytes % (Manual) 6, Eosinophils % (Manual) 1, Basophils % ( Manual) 0, Band Neutrophils 1, Platelet Estimate DecreasedL, Platelet Morphology Normal, Red Blood Cell Morphology Normal, Prothrombin Time 9.6, Prothromb Time International Ratio 0.9, Activated Partial Thromboplast Time 23, Lactic Acid Level 1.00, Troponin I 0.000 05/30/19 12:30: Urine Color Yellow, Urine Appearance Slightly cloudy, Urine pH 6, Urine Specific [place] 1.015, Urine Protein 1+H, Urine Glucose (UA) Negative, Urine Ketones 1+H, Urine Blood 5+H, Urine Nitrite Negative, Urine Bilirubin Negative, Urine Urobilinogen 8H, Urine Leukocyte Esterase 1+H, Urine RBC 15-20H, Urine WBC 2-4, Urine Squamous Epithelial Cells Occasional, Urine Bacteria Few, Sodium Level 142, Potassium Level 4.2, Chloride Level 109H, Carbon Dioxide Level 25, Anion Gap 8, Blood Urea Nitrogen 18, Creatinine 0.6, Estimat Glomerular Filtration Rate > 60, Glucose Level 111H, Calcium Level 9.4, Total Bilirubin 0.2 , Aspartate Amino Transf (AST/SGOT) 35, Alanine Aminotransferase (ALT/SGPT) 21, Alkaline Phosphatase 46, Total Creatine Kinase 133, Creatine Kinase MB 1.2, Creatine Kinase MB Relative Index 0.9, Total Protein 6.6, Albumin 2.7L, Globulin 3.9, Albumin/Globulin Ratio 0.7L, Valproic Acid (Depakene) Level 43L 05/31/19 04:00: White Blood Count 4.1L, Red Blood Count 3.58L, Hemoglobin 10.4L, Hematocrit 30.7L, Mean Corpuscular Volume 86, Mean Corpuscular Hemoglobin 29.2, Mean Corpuscular Hemoglobin Concent 34.0, Red Cell Distribution Width 13.2, Platelet Count 126L, Mean Platelet Volume 11.0H, Neutrophils (%) (Auto) 60.7, Lymphocytes (%) (Auto) 24.7, Monocytes (%) (Auto) 13.8H, Eosinophils (%) (Auto) 0.4, Basophils (%) (Auto) 0.5, Sodium Level 145, Potassium Level 3.1L, Chloride Level 110H, Carbon Dioxide Level 23, Anion Gap 12, Blood Urea Nitrogen 10, Creatinine 0.5L, Estimat Glomerular Filtration Rate > 60, Glucose Level 86, Calcium Level 8.4L, Hemoglobin A1c 5.9 Height (Feet): 5 Height (Inches): 3.00 Weight (Pounds): 150 General Appearance: lethargic EENT: normal ENT inspection Neck: supple Cardiovascular: bradycardia Respiratory/Chest: decreased breath sounds Abdomen: normal bowel sounds, non tender, soft Extremities: non-tender Thang Doan MD May 31, 2019 09:26
--- NOTE | 2019-05-31 09:35 | Consultation ---
History of Present Illness General Date patient seen: May 30, 2019 Time patient seen: 16:52 Chief Complaint: Gastrointestinal Bleed Present Illness HPI Pt brought in by ambulance 70 from [facility] for GI bleed for unknown time. Pt has upper abdomen g tube patent. Cardiology consulted for clearance for colonoscopy Allergies: Coded Allergies: IODINE (Verified Allergy, Unknown, 11/10/17) Medication History Scheduled Amlodipine Besylate* (Amlodipine Besylate*), 5 MG GT DAILY, (Reported) Aspirin* (Aspir-Low*), 81 MG GT DAILY, (Reported) Carvedilol* (Carvedilol*), 6.25 MG GT TWICE A DAY, (Reported) Docusate Sodium (Docusate Sodium), 50 MG GT BID, (Reported) Escitalopram Oxalate* (Lexapro*), 10 MG GT DAILY, (Reported) Lactose-Reduced Food/Fiber (Jevity 1.5 Manolo Liquid), 910 ML GT 65 ML/HR FOR 14 HRS , (Reported) Multivitamin (Multivitamins), 1 EACH GT DAILY, (Reported) [place]-3 Fatty Acids/Fish Oil (Fish Oil 1,000 Mg Softgel), 1 CAP GT DAILY, ( Reported) Omeprazole (Omeprazole), 20 MG GT DAILY, (Reported) Polyethylene Glycol 3350* (Polyethylene Glycol 3350*), 17 GM GT DAILY, (Reported ) Pravastatin Sod* (Pravastatin Sod*), 80 MG GT BEDTIME, (Reported) Risperidone* (Risperdal*), 1 MG GT BID, (Reported) Sennosides (Senna), 17.2 MG GT BEDTIME, (Reported) Valproate Sodium (Valproic Acid), 10 ML GT Q12HR, (Reported) Scheduled PRN Magnesium Hydroxide* (Milk Of Magnesia*), 30 ML ORAL DAILY PRN for Constipation, (Reported) Tramadol Hcl* (Ultram*), 25 MG GT Q8HR PRN for For Pain, (Reported) Patient History Healthcare decision maker Resuscitation status Full Code Advanced Directive on File Physical Exam General Appearance: lethargic, confused Lines, tubes and drains: peripheral HEENT: normocephalic, atraumatic, anicteric, mucous membranes moist, PERRL Neck: non-tender, normal alignment, supple, normal inspection Respiratory/Chest: chest wall non-tender, lungs clear Cardiovascular/Chest: normal peripheral pulses, normal rate, regular rhythm Abdomen: normal bowel sounds, non tender, soft, no organomegaly, no mass Extremities: normal range of motion, non-tender, normal inspection, no calf tenderness, normal capillary refill, non-pitting Skin Exam: normal pigmentation, warm/dry, cyanotic Neurologic: abnormal CN, sensory deficit, disoriented Last 24 Hour Vital Signs Date Time Temp Pulse Resp B/P (MAP) Pulse Ox O2 Delivery O2 Flow Rate FiO2 05/31/19 08:22 43 123/52 05/31/19 08:19 43 123/52 05/31/19 07:00 68 17 110/64 (79) 97 05/31/19 06:00 54 16 98/54 (69) 98 05/31/19 05:00 58 17 114/63 (80) 96 05/31/19 04:00 Room Air 05/31/19 04:00 98.8 67 17 130/54 (79) 95 05/31/19 03:30 47 05/31/19 03:12 65 05/31/19 03:00 32 16 125/67 (86) 95 05/31/19 02:30 29 05/31/19 02:00 56 17 141/55 (83) 96 05/31/19 01:30 34 05/31/19 01:00 48 15 97 05/31/19 00:27 61 05/31/19 00:00 98.8 47 14 120/49 (72) 97 05/31/19 00:00 Room Air 05/30/19 23:00 59 23 131/102 (112) 94 05/30/19 22:21 99.1 65 20 121/74 (90) 93 05/30/19 22:21 99.1 65 20 121/74 (90) 93 05/30/19 22:15 Room Air 05/30/19 22:10 99.7 81 19 139/60 98 Room Air 94 05/30/19 21:50 56 139/60 05/30/19 21:50 99.7 81 19 137/75 98 Room Air 94 05/30/19 19:41 99.1 77 19 119/59 98 Room Air 94 05/30/19 18:22 98.9 74 19 120/55 98 Room Air 05/30/19 17:30 99.2 74 18 144/106 99 Room Air 05/30/19 17:20 98.9 82 21 131/97 97 Room Air 05/30/19 16:22 99.0 84 21 153/107 97 Room Air 05/30/19 15:35 99.0 88 17 123/73 99 Room Air 94 05/30/19 15:20 98.9 82 21 05/30/19 14:22 102.0 82 21 124/75 95 Room Air 05/30/19 12:36 97.0 05/30/19 12:15 102.7 87 21 122/71 94 Room Air 05/30/19 12:15 87 21 Room Air 94 05/30/19 11:07 97.0 82 16 160/83 (108) 96 Room Air Laboratory Tests Test 05/30/19 11:30 05/30/19 12:30 05/31/19 04:00 White Blood Count 3.5 K/UL (4.8-10.8) L 4.1 K/UL (4.8-10.8) L Red Blood Count 4.71 M/UL (4.20-5.40) 3.58 M/UL (4.20-5.40) L Hemoglobin 13.9 G/DL (12.0-16.0) 10.4 G/DL (12.0-16.0) L Hematocrit 40.6 % (37.0-47.0) 30.7 % (37.0-47.0) L Mean Corpuscular Volume 86 FL (80-99) 86 FL (80-99) Mean Corpuscular Hemoglobin 29.5 PG (27.0-31.0) 29.2 PG (27.0-31.0) Mean Corpuscular Hemoglobin Concent 34.3 G/DL (32.0-36.0) 34.0 G/DL (32.0-36.0) Red Cell Distribution Width 12.8 % (11.6-14.8) 13.2 % (11.6-14.8) Platelet Count 84 K/UL (150-450) L 126 K/UL (150-450) L Mean Platelet Volume 8.5 FL (6.5-10.1) 11.0 FL (6.5-10.1) H Neutrophils (%) (Auto) % (45.0-75.0) 60.7 % (45.0-75.0) Lymphocytes (%) (Auto) % (20.0-45.0) 24.7 % (20.0-45.0) Monocytes (%) (Auto) % (1.0-10.0) 13.8 % (1.0-10.0) H Eosinophils (%) (Auto) % (0.0-3.0) 0.4 % (0.0-3.0) Basophils (%) (Auto) % (0.0-2.0) 0.5 % (0.0-2.0) Differential Total Cells Counted 100 Neutrophils % (Manual) 55 % (45-75) Lymphocytes % (Manual) 37 % (20-45) Monocytes % (Manual) 6 % (1-10) Eosinophils % (Manual) 1 % (0-3) Basophils % (Manual) 0 % (0-2) Band Neutrophils 1 % (0-8) Platelet Estimate Decreased L Platelet Morphology Normal Red Blood Cell Morphology Normal Prothrombin Time 9.6 SEC (9.30-11.50) Prothromb Time International Ratio 0.9 (0.9-1.1) Activated Partial Thromboplast Time 23 SEC (23-33) Lactic Acid Level 1.00 mmol/L (0.4-2.0) Troponin I 0.000 ng/mL (0.000-0.056) Urine Color Yellow Urine Appearance Slightly cloudy Urine pH 6 (4.5-8.0) Urine Specific [place] 1.015 (1.005-1.035) Urine Protein 1+ (NEGATIVE) H Urine Glucose (UA) Negative (NEGATIVE) Urine Ketones 1+ (NEGATIVE) H Urine Blood 5+ (NEGATIVE) H Urine Nitrite Negative (NEGATIVE) Urine Bilirubin Negative (NEGATIVE) Urine Urobilinogen 8 MG/DL (0.0-1.0) H Urine Leukocyte Esterase 1+ (NEGATIVE) H Urine RBC 15-20 /HPF (0 - 2) H Urine WBC 2-4 /HPF (0 - 2) Urine Squamous Epithelial Cells Occasional /LPF Urine Bacteria Few /HPF (NONE) Sodium Level 142 MMOL/L (136-145) 145 MMOL/L (136-145) Potassium Level 4.2 MMOL/L (3.5-5.1) 3.1 MMOL/L (3.5-5.1) L Chloride Level 109 MMOL/L (98-107) H 110 MMOL/L (98-107) H Carbon Dioxide Level 25 MMOL/L (21-32) 23 MMOL/L (21-32) Anion Gap 8 mmol/L (5-15) 12 mmol/L (5-15) Blood Urea Nitrogen 18 mg/dL (7-18) 10 mg/dL (7-18) Creatinine 0.6 MG/DL (0.55-1.30) 0.5 MG/DL (0.55-1.30) L Estimat Glomerular Filtration Rate > 60 mL/min (>60) > 60 mL/min (>60) Glucose Level 111 MG/DL (74-106) H 86 MG/DL (74-106) Calcium Level 9.4 MG/DL (8.5-10.1) 8.4 MG/DL (8.5-10.1) L Total Bilirubin 0.2 MG/DL (0.2-1.0) Aspartate Amino Transf (AST/SGOT) 35 U/L (15-37) Alanine Aminotransferase (ALT/SGPT) 21 U/L (12-78) Alkaline Phosphatase 46 U/L (46-116) Total Creatine Kinase 133 U/L (26-308) Creatine Kinase MB 1.2 NG/ML (0.0-3.6) Creatine Kinase MB Relative Index 0.9 Total Protein 6.6 G/DL (6.4-8.2) Albumin 2.7 G/DL (3.4-5.0) L Globulin 3.9 g/dL Albumin/Globulin Ratio 0.7 (1.0-2.7) L Valproic Acid (Depakene) Level 43 MCG/ML (50-100) L Hemoglobin A1c 5.9 % (4.3-6.0) Height (Feet): 5 Height (Inches): 3.00 Weight (Pounds): 150 Medications Current Medications Medications (Trade) Dose Ordered Sig/Claritza Route PRN Reason Start Time Stop Time Status Last Admin Dose Admin Acetaminophen (Tylenol) 650 mg Q4H PRN GT Mild Pain (Pain Scale 1-3) 05/30/19 17:00 06/29/19 13:29 Acetaminophen (Tylenol) 650 mg Q4H PRN GT T>100.4 05/30/19 17:00 06/29/19 13:29 Amlodipine Besylate (Norvasc) 5 mg DAILY GT 05/31/19 09:00 06/30/19 08:59 Carvedilol (Coreg) 6.25 mg Q12HR GT 05/30/19 21:00 06/29/19 20:59 05/30/19 21:50 Ceftriaxone Sodium 1 gm/ Sodium Chloride 55 ml @ 110 mls/hr DAILY IVPB 05/31/19 09:00 06/07/19 08:59 05/31/19 09:10 Dextrose (Dextrose 50%) 25 ml Q30M PRN IV Hypoglycemia 05/30/19 13:30 08/28/19 13:29 Dextrose (Dextrose 50%) 50 ml Q30M PRN IV Hypoglycemia 05/30/19 13:30 08/28/19 13:29 Escitalopram Oxalate (Lexapro) 10 mg DAILY GT 05/31/19 09:00 06/30/19 08:59 Magnesium Hydroxide (Mom) 30 ml DAILYPRN PRN ORAL Constipation 05/30/19 16:45 06/29/19 16:44 Metronidazole (Flagyl) 500 mg Q6HR GT 05/30/19 18:00 06/06/19 17:59 05/31/19 06:10 Potassium Chloride 100 ml @ 100 mls/hr Q1HR IVPB 05/31/19 10:00 05/31/19 12:59 Pravastatin Sodium (Pravachol) 80 mg BEDTIME GT 05/30/19 21:00 06/29/19 20:59 05/30/19 21:50 Risperidone (RisperDAL) 1 mg BID GT 05/30/19 18:00 07/14/19 17:59 05/30/19 18:16 Tramadol HCl (Ultram) 25 mg Q8H PRN GT Moderate Pain (Pain Scale 4-6) 05/30/19 17:30 06/06/19 17:29 Valproic Acid (Depakene) 250 mg Q12HR GT 05/30/19 21:00 06/29/19 20:59 05/30/19 21:51 Assessment/Plan Status: stable Assessment/Plan: Assessment: (1) Suspected 2019 novel coronavirus infection (2) Lower GI bleed (3) Thrombocytopenia (4) Diabetes mellitus (5) HTN (hypertension) -Hold aspirin until cleared by GI -Continue coreg -Serial H/H -IV fluids -Transfuse platelets -Clear to proceed with colonoscopy if needed -Defer cath/stress given lack of objective ischemic findings Herman French MD May 31, 2019 09:35
--- NOTE | 2019-05-31 10:31 | Cardiac Electrophysiology PN ---
Subjective Subjective [id number] Objective Last 24 Hour Vital Signs Date Time Temp Pulse Resp B/P (MAP) Pulse Ox O2 Delivery O2 Flow Rate FiO2 05/31/19 09:00 40 14 131/72 (91) 98 05/31/19 08:22 43 123/52 05/31/19 08:19 43 123/52 05/31/19 08:00 98.1 41 16 123/52 (75) 95 05/31/19 07:00 68 17 110/64 (79) 97 05/31/19 06:00 54 16 98/54 (69) 98 05/31/19 05:00 58 17 114/63 (80) 96 05/31/19 04:00 Room Air 05/31/19 04:00 98.8 67 17 130/54 (79) 95 05/31/19 03:30 47 05/31/19 03:12 65 05/31/19 03:00 32 16 125/67 (86) 95 05/31/19 02:30 29 05/31/19 02:00 56 17 141/55 (83) 96 05/31/19 01:30 34 05/31/19 01:00 48 15 97 05/31/19 00:27 61 05/31/19 00:00 98.8 47 14 120/49 (72) 97 05/31/19 00:00 Room Air 05/30/19 23:00 59 23 131/102 (112) 94 05/30/19 22:21 99.1 65 20 121/74 (90) 93 05/30/19 22:21 99.1 65 20 121/74 (90) 93 05/30/19 22:15 Room Air 05/30/19 22:10 99.7 81 19 139/60 98 Room Air 94 05/30/19 21:50 56 139/60 05/30/19 21:50 99.7 81 19 137/75 98 Room Air 94 05/30/19 19:41 99.1 77 19 119/59 98 Room Air 94 05/30/19 18:22 98.9 74 19 120/55 98 Room Air 05/30/19 17:30 99.2 74 18 144/106 99 Room Air 05/30/19 17:20 98.9 82 21 131/97 97 Room Air 05/30/19 16:22 99.0 84 21 153/107 97 Room Air 05/30/19 15:35 99.0 88 17 123/73 99 Room Air 94 05/30/19 15:20 98.9 82 21 05/30/19 14:22 102.0 82 21 124/75 95 Room Air 05/30/19 12:36 97.0 05/30/19 12:15 102.7 87 21 122/71 94 Room Air 05/30/19 12:15 87 21 Room Air 94 05/30/19 11:07 97.0 82 16 160/83 (108) 96 Room Air Laboratory Tests Test 05/30/19 11:30 05/30/19 12:30 05/31/19 04:00 White Blood Count 3.5 K/UL (4.8-10.8) L 4.1 K/UL (4.8-10.8) L Red Blood Count 4.71 M/UL (4.20-5.40) 3.58 M/UL (4.20-5.40) L Hemoglobin 13.9 G/DL (12.0-16.0) 10.4 G/DL (12.0-16.0) L Hematocrit 40.6 % (37.0-47.0) 30.7 % (37.0-47.0) L Mean Corpuscular Volume 86 FL (80-99) 86 FL (80-99) Mean Corpuscular Hemoglobin 29.5 PG (27.0-31.0) 29.2 PG (27.0-31.0) Mean Corpuscular Hemoglobin Concent 34.3 G/DL (32.0-36.0) 34.0 G/DL (32.0-36.0) Red Cell Distribution Width 12.8 % (11.6-14.8) 13.2 % (11.6-14.8) Platelet Count 84 K/UL (150-450) L 126 K/UL (150-450) L Mean Platelet Volume 8.5 FL (6.5-10.1) 11.0 FL (6.5-10.1) H Neutrophils (%) (Auto) % (45.0-75.0) 60.7 % (45.0-75.0) Lymphocytes (%) (Auto) % (20.0-45.0) 24.7 % (20.0-45.0) Monocytes (%) (Auto) % (1.0-10.0) 13.8 % (1.0-10.0) H Eosinophils (%) (Auto) % (0.0-3.0) 0.4 % (0.0-3.0) Basophils (%) (Auto) % (0.0-2.0) 0.5 % (0.0-2.0) Differential Total Cells Counted 100 Neutrophils % (Manual) 55 % (45-75) Lymphocytes % (Manual) 37 % (20-45) Monocytes % (Manual) 6 % (1-10) Eosinophils % (Manual) 1 % (0-3) Basophils % (Manual) 0 % (0-2) Band Neutrophils 1 % (0-8) Platelet Estimate Decreased L Platelet Morphology Normal Red Blood Cell Morphology Normal Prothrombin Time 9.6 SEC (9.30-11.50) Prothromb Time International Ratio 0.9 (0.9-1.1) Activated Partial Thromboplast Time 23 SEC (23-33) Lactic Acid Level 1.00 mmol/L (0.4-2.0) Troponin I 0.000 ng/mL (0.000-0.056) Urine Color Yellow Urine Appearance Slightly cloudy Urine pH 6 (4.5-8.0) Urine Specific [place] 1.015 (1.005-1.035) Urine Protein 1+ (NEGATIVE) H Urine Glucose (UA) Negative (NEGATIVE) Urine Ketones 1+ (NEGATIVE) H Urine Blood 5+ (NEGATIVE) H Urine Nitrite Negative (NEGATIVE) Urine Bilirubin Negative (NEGATIVE) Urine Urobilinogen 8 MG/DL (0.0-1.0) H Urine Leukocyte Esterase 1+ (NEGATIVE) H Urine RBC 15-20 /HPF (0 - 2) H Urine WBC 2-4 /HPF (0 - 2) Urine Squamous Epithelial Cells Occasional /LPF Urine Bacteria Few /HPF (NONE) Sodium Level 142 MMOL/L (136-145) 145 MMOL/L (136-145) Potassium Level 4.2 MMOL/L (3.5-5.1) 3.1 MMOL/L (3.5-5.1) L Chloride Level 109 MMOL/L (98-107) H 110 MMOL/L (98-107) H Carbon Dioxide Level 25 MMOL/L (21-32) 23 MMOL/L (21-32) Anion Gap 8 mmol/L (5-15) 12 mmol/L (5-15) Blood Urea Nitrogen 18 mg/dL (7-18) 10 mg/dL (7-18) Creatinine 0.6 MG/DL (0.55-1.30) 0.5 MG/DL (0.55-1.30) L Estimat Glomerular Filtration Rate > 60 mL/min (>60) > 60 mL/min (>60) Glucose Level 111 MG/DL (74-106) H 86 MG/DL (74-106) Calcium Level 9.4 MG/DL (8.5-10.1) 8.4 MG/DL (8.5-10.1) L Total Bilirubin 0.2 MG/DL (0.2-1.0) Aspartate Amino Transf (AST/SGOT) 35 U/L (15-37) Alanine Aminotransferase (ALT/SGPT) 21 U/L (12-78) Alkaline Phosphatase 46 U/L (46-116) Total Creatine Kinase 133 U/L (26-308) Creatine Kinase MB 1.2 NG/ML (0.0-3.6) Creatine Kinase MB Relative Index 0.9 Total Protein 6.6 G/DL (6.4-8.2) Albumin 2.7 G/DL (3.4-5.0) L Globulin 3.9 g/dL Albumin/Globulin Ratio 0.7 (1.0-2.7) L Valproic Acid (Depakene) Level 43 MCG/ML (50-100) L Hemoglobin A1c 5.9 % (4.3-6.0) Telly Gottlieb MD May 31, 2019 10:31
--- NOTE | 2019-05-31 10:51 | General Progress Note ---
Assessment/Plan Status: stable Assessment/Plan: 74-year-old female from [facility] w/PMH CVA, dysphasia s/p PEG, dementia, epilepsy, ?DMT2 who presents with bright red blood per rectum, GIB. Patient came facility with multiple COVID positive patients, patient is pending COVID rule out. #Acute blood loss anemia #Acute GIB -continue inpatient level of care -Hb down to 10 this AM -cont. to monitor hgb, transfuse for hgb <7 -cont IVG -Cont Protonix -GI following, plan for colonoscopy if Covid is negative -Surgery following -Cardio following #COVID exposure #Fever -fever 102.7 rectal in ED -droplet precautions -COVID pending -KUB negative -CXR ?right lung infiltrate -BCx pending -Cont current abx -ID and Pulm consulted #?DMT2 -per chart review pt w/h/o DM -no medications seen in MAR from [facility] #HTN #HLD -holding ASA given acute GIB -cont. home coreg w/hold parameters #H/o Epilepsy #Seizures #?Dementia -no seizure activity reported by [facility] -cont. valproic acid -check valproic acid level -cont. home risperdol -Neurology consulted #Dysphagia s/p PEG -TF per nutrition DVT PPx: SCDs given acute GIB Time spent on encounter: 35 mins, >50% on counseling, coordination of care. I spent an additional 35 minutes on review of medical records including prior records, consult notes, progress notes, procedures, imaging, labs, hemodynamics , and other clinical documentation. Time of note doesn't reflect time of encounter. Subjective Date patient seen: May 31, 2019 Time patient seen: 09:00 ROS Limited/Unobtainable: Yes Allergies: Coded Allergies: IODINE (Verified Allergy, Unknown, 11/10/17) Objective Last 24 Hour Vital Signs Date Time Temp Pulse Resp B/P (MAP) Pulse Ox O2 Delivery O2 Flow Rate FiO2 05/31/19 09:00 40 14 131/72 (91) 98 05/31/19 08:22 43 123/52 05/31/19 08:19 43 123/52 05/31/19 08:00 98.1 41 16 123/52 (75) 95 05/31/19 07:00 68 17 110/64 (79) 97 4/7/20 06:00 54 16 98/54 (69) 98 05/31/19 05:00 58 17 114/63 (80) 96 05/31/19 04:00 Room Air 05/31/19 04:00 98.8 67 17 130/54 (79) 95 05/31/19 03:30 47 05/31/19 03:12 65 05/31/19 03:00 32 16 125/67 (86) 95 05/31/19 02:30 29 05/31/19 02:00 56 17 141/55 (83) 96 05/31/19 01:30 34 05/31/19 01:00 48 15 97 05/31/19 00:27 61 05/31/19 00:00 98.8 47 14 120/49 (72) 97 05/31/19 00:00 Room Air 05/30/19 23:00 59 23 131/102 (112) 94 05/30/19 22:21 99.1 65 20 121/74 (90) 93 05/30/19 22:21 99.1 65 20 121/74 (90) 93 05/30/19 22:15 Room Air 05/30/19 22:10 99.7 81 19 139/60 98 Room Air 94 05/30/19 21:50 56 139/60 05/30/19 21:50 99.7 81 19 137/75 98 Room Air 94 05/30/19 19:41 99.1 77 19 119/59 98 Room Air 94 05/30/19 18:22 98.9 74 19 120/55 98 Room Air 05/30/19 17:30 99.2 74 18 144/106 99 Room Air 05/30/19 17:20 98.9 82 21 131/97 97 Room Air 05/30/19 16:22 99.0 84 21 153/107 97 Room Air 05/30/19 15:35 99.0 88 17 123/73 99 Room Air 94 05/30/19 15:20 98.9 82 21 05/30/19 14:22 102.0 82 21 124/75 95 Room Air 05/30/19 12:36 97.0 05/30/19 12:15 102.7 87 21 122/71 94 Room Air 05/30/19 12:15 87 21 Room Air 94 05/30/19 11:07 97.0 82 16 160/83 (108) 96 Room Air Laboratory Tests 05/30/19 11:30: White Blood Count 3.5L, Red Blood Count 4.71, Hemoglobin 13.9, Hematocrit 40.6, Mean Corpuscular Volume 86, Mean Corpuscular Hemoglobin 29.5, Mean Corpuscular Hemoglobin Concent 34.3, Red Cell Distribution Width 12.8, Platelet Count 84L, Mean Platelet Volume 8.5, Neutrophils (%) (Auto) , Lymphocytes (%) (Auto) , Monocytes (%) (Auto) , Eosinophils (%) (Auto) , Basophils (%) (Auto) , Differential Total Cells Counted 100, Neutrophils % (Manual) 55, Lymphocytes % ( Manual) 37, Monocytes % (Manual) 6, Eosinophils % (Manual) 1, Basophils % ( Manual) 0, Band Neutrophils 1, Platelet Estimate DecreasedL, Platelet Morphology Normal, Red Blood Cell Morphology Normal, Prothrombin Time 9.6, Prothromb Time International Ratio 0.9, Activated Partial Thromboplast Time 23, Lactic Acid Level 1.00, Troponin I 0.000 05/30/19 12:30: Urine Color Yellow, Urine Appearance Slightly cloudy, Urine pH 6, Urine Specific [place] 1.015, Urine Protein 1+H, Urine Glucose (UA) Negative, Urine Ketones 1+H, Urine Blood 5+H, Urine Nitrite Negative, Urine Bilirubin Negative, Urine Urobilinogen 8H, Urine Leukocyte Esterase 1+H, Urine RBC 15-20H, Urine WBC 2-4, Urine Squamous Epithelial Cells Occasional, Urine Bacteria Few, Sodium Level 142, Potassium Level 4.2, Chloride Level 109H, Carbon Dioxide Level 25, Anion Gap 8, Blood Urea Nitrogen 18, Creatinine 0.6, Estimat Glomerular Filtration Rate > 60, Glucose Level 111H, Calcium Level 9.4, Total Bilirubin 0.2 , Aspartate Amino Transf (AST/SGOT) 35, Alanine Aminotransferase (ALT/SGPT) 21, Alkaline Phosphatase 46, Total Creatine Kinase 133, Creatine Kinase MB 1.2, Creatine Kinase MB Relative Index 0.9, Total Protein 6.6, Albumin 2.7L, Globulin 3.9, Albumin/Globulin Ratio 0.7L, Valproic Acid (Depakene) Level 43L 05/31/19 04:00: White Blood Count 4.1L, Red Blood Count 3.58L, Hemoglobin 10.4L, Hematocrit 30.7L, Mean Corpuscular Volume 86, Mean Corpuscular Hemoglobin 29.2, Mean Corpuscular Hemoglobin Concent 34.0, Red Cell Distribution Width 13.2, Platelet Count 126L, Mean Platelet Volume 11.0H, Neutrophils (%) (Auto) 60.7, Lymphocytes (%) (Auto) 24.7, Monocytes (%) (Auto) 13.8H, Eosinophils (%) (Auto) 0.4, Basophils (%) (Auto) 0.5, Sodium Level 145, Potassium Level 3.1L, Chloride Level 110H, Carbon Dioxide Level 23, Anion Gap 12, Blood Urea Nitrogen 10, Creatinine 0.5L, Estimat Glomerular Filtration Rate > 60, Glucose Level 86, Calcium Level 8.4L, Hemoglobin A1c 5.9 Height (Feet): 5 Height (Inches): 3.00 Weight (Pounds): 149 Pierce Baptiste MD May 31, 2019 10:51
--- NOTE | 2019-05-31 10:57 | Pulmonology Progress Note ---
Assessment/Plan Assessment/Plan IMPRESSION: 1. Rectal bleeding. 2. Right lung pneumonia. 3. CVA. 4. [facility] resident. DISCUSSION: Admitted to the hospital. I will recommend rule out COVID-19 given her risk factors. I will follow as mechanical supervisor. Continue oxygen and pulmonary hygiene. Subjective Interval Events: None new Constitutional: Reports: no symptoms HEENT: Repors: no symptoms Respiratory: Reports: no symptoms Cardiovascular: Reports: no symptoms Gastrointestinal/Abdominal: Reports: blood in stool Genitourinary: Reports: no symptoms Allergies: Coded Allergies: IODINE (Verified Allergy, Unknown, 11/10/17) Objective Last 24 Hour Vital Signs Date Time Temp Pulse Resp B/P (MAP) Pulse Ox O2 Delivery O2 Flow Rate FiO2 05/31/19 09:00 40 14 131/72 (91) 98 05/31/19 08:22 43 123/52 05/31/19 08:19 43 123/52 05/31/19 08:00 98.1 41 16 123/52 (75) 95 05/31/19 07:00 68 17 110/64 (79) 97 05/31/19 06:00 54 16 98/54 (69) 98 05/31/19 05:00 58 17 114/63 (80) 96 05/31/19 04:00 Room Air 05/31/19 04:00 98.8 67 17 130/54 (79) 95 05/31/19 03:30 47 05/31/19 03:12 65 05/31/19 03:00 32 16 125/67 (86) 95 05/31/19 02:30 29 05/31/19 02:00 56 17 141/55 (83) 96 05/31/19 01:30 34 05/31/19 01:00 48 15 97 05/31/19 00:27 61 05/31/19 00:00 98.8 47 14 120/49 (72) 97 05/31/19 00:00 Room Air 05/30/19 23:00 59 23 131/102 (112) 94 05/30/19 22:21 99.1 65 20 121/74 (90) 93 05/30/19 22:21 99.1 65 20 121/74 (90) 93 05/30/19 22:15 Room Air 05/30/19 22:10 99.7 81 19 139/60 98 Room Air 94 4/6/20 21:50 56 139/60 05/30/19 21:50 99.7 81 19 137/75 98 Room Air 94 05/30/19 19:41 99.1 77 19 119/59 98 Room Air 94 05/30/19 18:22 98.9 74 19 120/55 98 Room Air 05/30/19 17:30 99.2 74 18 144/106 99 Room Air 05/30/19 17:20 98.9 82 21 131/97 97 Room Air 05/30/19 16:22 99.0 84 21 153/107 97 Room Air 05/30/19 15:35 99.0 88 17 123/73 99 Room Air 94 05/30/19 15:20 98.9 82 21 05/30/19 14:22 102.0 82 21 124/75 95 Room Air 05/30/19 12:36 97.0 05/30/19 12:15 102.7 87 21 122/71 94 Room Air 05/30/19 12:15 87 21 Room Air 94 05/30/19 11:07 97.0 82 16 160/83 (108) 96 Room Air General Appearance: no acute distress HEENT: normocephalic Respiratory/Chest: chest wall non-tender Cardiovascular: normal peripheral pulses Abdomen: normal bowel sounds Laboratory Tests 05/30/19 11:30: White Blood Count 3.5L, Red Blood Count 4.71, Hemoglobin 13.9, Hematocrit 40.6, Mean Corpuscular Volume 86, Mean Corpuscular Hemoglobin 29.5, Mean Corpuscular Hemoglobin Concent 34.3, Red Cell Distribution Width 12.8, Platelet Count 84L, Mean Platelet Volume 8.5, Neutrophils (%) (Auto) , Lymphocytes (%) (Auto) , Monocytes (%) (Auto) , Eosinophils (%) (Auto) , Basophils (%) (Auto) , Differential Total Cells Counted 100, Neutrophils % (Manual) 55, Lymphocytes % ( Manual) 37, Monocytes % (Manual) 6, Eosinophils % (Manual) 1, Basophils % ( Manual) 0, Band Neutrophils 1, Platelet Estimate DecreasedL, Platelet Morphology Normal, Red Blood Cell Morphology Normal, Prothrombin Time 9.6, Prothromb Time International Ratio 0.9, Activated Partial Thromboplast Time 23, Lactic Acid Level 1.00, Troponin I 0.000 4/6/20 12:30: Urine Color Yellow, Urine Appearance Slightly cloudy, Urine pH 6, Urine Specific [place] 1.015, Urine Protein 1+H, Urine Glucose (UA) Negative, Urine Ketones 1+H, Urine Blood 5+H, Urine Nitrite Negative, Urine Bilirubin Negative, Urine Urobilinogen 8H, Urine Leukocyte Esterase 1+H, Urine RBC 15-20H, Urine WBC 2-4, Urine Squamous Epithelial Cells Occasional, Urine Bacteria Few, Sodium Level 142, Potassium Level 4.2, Chloride Level 109H, Carbon Dioxide Level 25, Anion Gap 8, Blood Urea Nitrogen 18, Creatinine 0.6, Estimat Glomerular Filtration Rate > 60, Glucose Level 111H, Calcium Level 9.4, Total Bilirubin 0.2 , Aspartate Amino Transf (AST/SGOT) 35, Alanine Aminotransferase (ALT/SGPT) 21, Alkaline Phosphatase 46, Total Creatine Kinase 133, Creatine Kinase MB 1.2, Creatine Kinase MB Relative Index 0.9, Total Protein 6.6, Albumin 2.7L, Globulin 3.9, Albumin/Globulin Ratio 0.7L, Valproic Acid (Depakene) Level 43L 05/31/19 04:00: White Blood Count 4.1L, Red Blood Count 3.58L, Hemoglobin 10.4L, Hematocrit 30.7L, Mean Corpuscular Volume 86, Mean Corpuscular Hemoglobin 29.2, Mean Corpuscular Hemoglobin Concent 34.0, Red Cell Distribution Width 13.2, Platelet Count 126L, Mean Platelet Volume 11.0H, Neutrophils (%) (Auto) 60.7, Lymphocytes (%) (Auto) 24.7, Monocytes (%) (Auto) 13.8H, Eosinophils (%) (Auto) 0.4, Basophils (%) (Auto) 0.5, Sodium Level 145, Potassium Level 3.1L, Chloride Level 110H, Carbon Dioxide Level 23, Anion Gap 12, Blood Urea Nitrogen 10, Creatinine 0.5L, Estimat Glomerular Filtration Rate > 60, Glucose Level 86, Calcium Level 8.4L, Hemoglobin A1c 5.9 Current Medications Medications (Trade) Dose Ordered Sig/Claritza Route PRN Reason Start Time Stop Time Status Last Admin Dose Admin Acetaminophen (Tylenol) 650 mg Q4H PRN GT Mild Pain (Pain Scale 1-3) 05/30/19 17:00 06/29/19 13:29 Acetaminophen (Tylenol) 650 mg Q4H PRN GT T>100.4 05/30/19 17:00 06/29/19 13:29 Amlodipine Besylate (Norvasc) 5 mg DAILY GT 05/31/19 09:00 06/30/19 08:59 Carvedilol (Coreg) 3.125 mg Q12HR GT 05/31/19 21:00 06/29/19 20:59 Ceftriaxone Sodium 1 gm/ Sodium Chloride 55 ml @ 110 mls/hr DAILY IVPB 05/31/19 09:00 06/07/19 08:59 05/31/19 09:10 Dextrose (Dextrose 50%) 25 ml Q30M PRN IV Hypoglycemia 05/30/19 13:30 08/28/19 13:29 Dextrose (Dextrose 50%) 50 ml Q30M PRN IV Hypoglycemia 05/30/19 13:30 08/28/19 13:29 Escitalopram Oxalate (Lexapro) 10 mg DAILY GT 05/31/19 09:00 06/30/19 08:59 Magnesium Hydroxide (Mom) 30 ml DAILYPRN PRN ORAL Constipation 05/30/19 16:45 06/29/19 16:44 Metronidazole (Flagyl) 500 mg Q6HR GT 05/30/19 18:00 06/06/19 17:59 05/31/19 06:10 Potassium Chloride 100 ml @ 100 mls/hr Q1HR IVPB 05/31/19 10:00 05/31/19 12:59 05/31/19 10:14 Pravastatin Sodium (Pravachol) 80 mg BEDTIME GT 05/30/19 21:00 06/29/19 20:59 05/30/19 21:50 Risperidone (RisperDAL) 1 mg BID GT 05/30/19 18:00 07/14/19 17:59 05/30/19 18:16 Tramadol HCl (Ultram) 25 mg Q8H PRN GT Moderate Pain (Pain Scale 4-6) 05/30/19 17:30 06/06/19 17:29 Valproic Acid (Depakene) 250 mg Q12HR GT 05/30/19 21:00 06/29/19 20:59 05/30/19 21:51 Horace Landaverde MD May 31, 2019 10:56
[2019-05-31] MEDS: Pantoprazole Inj IVP SCH (12:08)
--- NOTE | 2019-05-31 13:05 | Surgery Progress Note ---
Surgery Progress Note Subjective Additional Comments hold on colonoscopy today as per GI discussed and reviewed h/h low but no active bleeding agree with scope when stable Objective Last 24 Hour Vital Signs Date Time Temp Pulse Resp B/P (MAP) Pulse Ox O2 Delivery O2 Flow Rate FiO2 05/31/19 11:00 53 21 107/85 (92) 98 05/31/19 10:00 60 17 131/72 (91) 97 05/31/19 09:00 40 14 131/72 (91) 98 05/31/19 08:22 43 123/52 05/31/19 08:19 43 123/52 05/31/19 08:00 Room Air 05/31/19 08:00 98.1 41 16 123/52 (75) 95 05/31/19 07:00 68 17 110/64 (79) 97 05/31/19 06:00 54 16 98/54 (69) 98 05/31/19 05:00 58 17 114/63 (80) 96 05/31/19 04:00 Room Air 05/31/19 04:00 98.8 67 17 130/54 (79) 95 05/31/19 03:30 47 05/31/19 03:12 65 05/31/19 03:00 32 16 125/67 (86) 95 05/31/19 02:30 29 05/31/19 02:00 56 17 141/55 (83) 96 05/31/19 01:30 34 05/31/19 01:00 48 15 97 05/31/19 00:27 61 05/31/19 00:00 98.8 47 14 120/49 (72) 97 05/31/19 00:00 Room Air 05/30/19 23:00 59 23 131/102 (112) 94 05/30/19 22:21 99.1 65 20 121/74 (90) 93 05/30/19 22:21 99.1 65 20 121/74 (90) 93 05/30/19 22:15 Room Air 05/30/19 22:10 99.7 81 19 139/60 98 Room Air 94 05/30/19 21:50 56 139/60 05/30/19 21:50 99.7 81 19 137/75 98 Room Air 94 05/30/19 19:41 99.1 77 19 119/59 98 Room Air 94 05/30/19 18:22 98.9 74 19 120/55 98 Room Air 05/30/19 17:30 99.2 74 18 144/106 99 Room Air 05/30/19 17:20 98.9 82 21 131/97 97 Room Air 05/30/19 16:22 99.0 84 21 153/107 97 Room Air 05/30/19 15:35 99.0 88 17 123/73 99 Room Air 94 05/30/19 15:20 98.9 82 21 05/30/19 14:22 102.0 82 21 124/75 95 Room Air Cardiovascular: RSR Respiratory: clear Abdomen: soft, flat, non-tender, present bowel sounds Extremities: no tenderness, no cyanosis Laboratory Tests Test 05/31/19 04:00 05/31/19 11:55 White Blood Count 4.1 K/UL (4.8-10.8) L Red Blood Count 3.58 M/UL (4.20-5.40) L Hemoglobin 10.4 G/DL (12.0-16.0) L Hematocrit 30.7 % (37.0-47.0) L Mean Corpuscular Volume 86 FL (80-99) Mean Corpuscular Hemoglobin 29.2 PG (27.0-31.0) Mean Corpuscular Hemoglobin Concent 34.0 G/DL (32.0-36.0) Red Cell Distribution Width 13.2 % (11.6-14.8) Platelet Count 126 K/UL (150-450) L Mean Platelet Volume 11.0 FL (6.5-10.1) H Neutrophils (%) (Auto) 60.7 % (45.0-75.0) Lymphocytes (%) (Auto) 24.7 % (20.0-45.0) Monocytes (%) (Auto) 13.8 % (1.0-10.0) H Eosinophils (%) (Auto) 0.4 % (0.0-3.0) Basophils (%) (Auto) 0.5 % (0.0-2.0) Sodium Level 145 MMOL/L (136-145) Potassium Level 3.1 MMOL/L (3.5-5.1) L Chloride Level 110 MMOL/L (98-107) H Carbon Dioxide Level 23 MMOL/L (21-32) Anion Gap 12 mmol/L (5-15) Blood Urea Nitrogen 10 mg/dL (7-18) Creatinine 0.5 MG/DL (0.55-1.30) L Estimat Glomerular Filtration Rate > 60 mL/min (>60) Glucose Level 86 MG/DL (74-106) Hemoglobin A1c 5.9 % (4.3-6.0) Calcium Level 8.4 MG/DL (8.5-10.1) L D-Dimer Pending Plan Problems: (1) Episode of generalized weakness (2) Encephalopathy (3) Constipation (4) Hypercalcemia (5) Dysphagia (6) Altered level of consciousness (7) Toxic encephalopathy (8) Thrombocytopenia (9) GIB (gastrointestinal bleeding) Assessment & Plan: Upper GI lavage with g tube no blood likely lower gi bleed diverticuli? appreciate GI input consider colonoscopy if rebleeds trend h/h abd exam benign no acute surgical intervention planned will follow with recs thank you (10) Lower GI bleed Assessment & Plan: Findings: There is a gastrostomy tube in place. The bowel gas pattern is unremarkable. No masses or unusual calcifications. There are degenerative changes of the lumbar spine Impression: No acute process (11) Epilepsy (12) Acute febrile illness (13) CVA (cerebral vascular accident) (14) Suspected 2019 novel coronavirus infection (15) Diabetes mellitus (16) HTN (hypertension) Tomi Ordoñez May 31, 2019 13:05
[2019-05-31] MEDS: Vancomycin 500 MG in NS 110 ML IVPB SCH (14:50)
[2019-05-31] MEDS: Acetaminophen 650mg/20.3ml GT PRN (15:05)
--- NOTE | 2019-05-31 15:45 | Consultation ---
DATE OF CONSULTATION: 05/31/2019 CARDIAC ELECTROPHYSIOLOGY CONSULTATION CONSULTING PHYSICIAN: Telly Gottlieb M.D. REFERRING PHYSICIAN: Mariposa Fermin M.D. REASON FOR CONSULTATION: Bradycardia. HISTORY OF PRESENT ILLNESS: Patient is a 74-year-old lady with history of hypertension and diabetes, who is a [place] resident who has a COVID-19 outbreak. Patient was sent for rectal bleeding. Patient has no upper GI bleeding and was mildly short of breath. Patient is G-tube dependent and she is Full Code. On telemetry, patient had bradycardia, heart rate in the 30s, and cardiac electrophysiology consultation was obtained for further evaluation and management. REVIEW OF SYSTEMS: Negative other than what was mentioned in history of present illness. PAST MEDICAL HISTORY: As mentioned above. FAMILY HISTORY: Noncontributory. SOCIAL HISTORY: She lives in detention. Does not smoke or drink alcohol. PHYSICAL EXAMINATION: VITAL SIGNS: Blood pressure of 131/72, pulse is 40, respirations 18, and she is afebrile. HEAD AND NECK: Shows no JVD or carotid bruit. LUNGS: Coarse rhonchi. CARDIOVASCULAR: Shows regular S1 and S2. Bradycardic. ABDOMEN: Soft and status post G-tube. EXTREMITIES: No pitting edema. LABORATORY AND DIAGNOSTIC STUDIES: Telemetry strip showed bradycardia with heart rate in the 40s. Her 12-lead EKG shows sinus bradycardia, rate of 55. Her labs show white count of 4.1, hemoglobin 10.4, hematocrit 30.7, and platelet count 126. Sodium is 145, potassium 3.1, BUN of 10, creatinine 0.5, and glucose of 86. Troponin is negative. ASSESSMENT AND PLAN: 1. Bradycardia. Patient is on Coreg 6.25 mg b.i.d. I will decrease to 3.125 mg b.i.d. I will continue to monitor the patient clinically. Echocardiogram is pending. 2. Hypertension, on amlodipine 5 and Coreg 3.125 mg b.i.d. 3. Hyperlipidemia, on protocol. 4. Rectal bleeding. 5. History of CVA. 6. Dysphagia, status post G-tube placement. 7. Underlying pneumonia. Patient will be ruled out for COVID-19. Thank you very much for allowing me to participate in the care of this patient. Please do not hesitate to contact me for any questions regarding my evaluation. Telly Gottlieb M.D. DR: HARRY JOB#: [id number] CC:
--- NOTE | 2019-05-31 16:59 | Consultation ---
DATE OF CONSULTATION: 05/31/2019 INFECTIOUS DISEASES CONSULTATION CONSULTING PHYSICIAN: Radha Dunham M.D. REFERRING PHYSICIAN: Dominga Hill D.O. REASON FOR CONSULTATION: Rule out COVID pneumonia. HISTORY OF PRESENTING ILLNESS: This is a 74-year-old lady with history of CVA, dysphagia, dementia, status post G-tube placement, possible diabetes who comes in with bright red blood per rectum. There were multiple positive COVID patients and she has been admitted to rule out COVID pneumonia and Infectious Diseases consultation has been obtained for antibiotics. PAST MEDICAL HISTORY: 1. History of possible diabetes. 2. CVA. 3. Dysphagia, status post G-tube placement. 4. Dementia. 5. Epilepsy. SOCIAL HISTORY: Unknown. FAMILY HISTORY: Unknown. REVIEW OF SYSTEMS: Unable to obtain currently. MEDICATIONS: As an inpatient, she is on Protonix, potassium, amlodipine, Lexapro, ceftriaxone, pravastatin, valproic acid, Risperdal, metronidazole, tramadol, Tylenol, milk of magnesia. ALLERGIES: To iodine noted. PHYSICAL EXAMINATION: VITAL SIGNS: T-max of 99.7, temperature of 98.1, pulse of 53, respiratory rate of 21, blood pressure 107/85, O2 saturation of 98%. Examination deferred due to possible COVID. LABORATORY AND DIAGNOSTIC DATA: White count 4.1, hemoglobin 10.4, hematocrit 30.7, MCV 86, platelet count 126, neutrophils of 60%. Sodium 145, potassium 3.1, chloride 110, bicarb 23, BUN 10, creatinine 0.5, glucose 86, calcium 8.4. Total bilirubin 0.2, AST 35, ALT 21, alkaline phosphatase 46. CK of 133, CK-MB 1.2. Total protein 6.6, albumin 2.7. UA showing wbc of 2 to 4. Chest x-ray showing right lung hazy infiltrate. Abdominal x-ray showing no acute process. ASSESSMENT: This is a 74-year-old lady with history of CVA, dementia, epilepsy, possible diabetes who comes in with bright red blood per rectum, pneumonia: 1. Would like to rule out C. difficile colitis as a possibility. 2. Would also like to rule out gastroenteritis as a possibility. 3. Would also like to rule out COVID-19 pneumonia as a possibility. PLAN: 1. We will order stool for C. difficile colitis. 2. We will order stool culture. 3. COVID-19 testing pending. 4. Continue isolation. 5. We will order CMV PCR. 6. We will follow up patient clinically. I like to thank, Dr. Hill for this consultation. Radha Dunham M.D. DR: PADMINI JOB#: [id number] CC: Dominga Hill D.O.
--- NOTE | 2019-05-31 18:34 | Consultation ---
History of Present Illness General Date patient seen: May 30, 2019 Chief Complaint: Gastrointestinal Bleed Reason for Consultation: ams Present Illness HPI 74-year-old female from [facility] w/PMH CVA, dysphasia s/p PEG, dementia, epilepsy, ?DMT2 who presents with bright red blood per rectum. Patient came facility with multiple COVID positive patients, patient is pending COVID rule out. Patient poor historian/minimally communicative, history very limited due to clinical picture, history obtained via chart review and nurse from [place]. Patient's baseline mentation is unknown, nurse went to turn patient this a.m. and noted BRBPR with clumps of blood, patient at that time was diaphoretic, SPO2 90s, and nurse sent patient to the ED for further treatment and evaluation. In the ED, patient awake, alert, however noncommunicative, appears comfortable. Patient admitted for further treatment and evaluation. PMH: CVA, dysphasia s/p PEG tube, severe dementia, ?DMT2, HLD, epilepsy FHx: Reviewed and not pertinent SH: from [facility], otherwise limited due to patient communication Allergies: Iodine Allergies: Coded Allergies: IODINE (Verified Allergy, Unknown, 11/10/17) Medication History Scheduled Amlodipine Besylate* (Amlodipine Besylate*), 5 MG GT DAILY, (Reported) Aspirin* (Aspir-Low*), 81 MG GT DAILY, (Reported) Carvedilol* (Carvedilol*), 6.25 MG GT TWICE A DAY, (Reported) Docusate Sodium (Docusate Sodium), 50 MG GT BID, (Reported) Escitalopram Oxalate* (Lexapro*), 10 MG GT DAILY, (Reported) Lactose-Reduced Food/Fiber (Jevity 1.5 Manolo Liquid), 910 ML GT 65 ML/HR FOR 14 HRS , (Reported) Multivitamin (Multivitamins), 1 EACH GT DAILY, (Reported) Francis-3 Fatty Acids/Fish Oil (Fish Oil 1,000 Mg Softgel), 1 CAP GT DAILY, ( Reported) Omeprazole (Omeprazole), 20 MG GT DAILY, (Reported) Polyethylene Glycol 3350* (Polyethylene Glycol 3350*), 17 GM GT DAILY, (Reported ) Pravastatin Sod* (Pravastatin Sod*), 80 MG GT BEDTIME, (Reported) Risperidone* (Risperdal*), 1 MG GT BID, (Reported) Sennosides (Senna), 17.2 MG GT BEDTIME, (Reported) Valproate Sodium (Valproic Acid), 10 ML GT Q12HR, (Reported) Scheduled PRN Magnesium Hydroxide* (Milk Of Magnesia*), 30 ML ORAL DAILY PRN for Constipation, (Reported) Tramadol Hcl* (Ultram*), 25 MG GT Q8HR PRN for For Pain, (Reported) Patient History Healthcare decision maker Resuscitation status Full Code Advanced Directive on File Physical Exam Last 24 Hour Vital Signs Date Time Temp Pulse Resp B/P (MAP) Pulse Ox O2 Delivery O2 Flow Rate FiO2 05/31/19 18:00 99.8 63 17 158/42 (80) 98 05/31/19 17:00 56 24 146/56 (86) 98 05/31/19 16:00 Room Air 05/31/19 16:00 99.6 69 17 134/73 (93) 97 05/31/19 16:00 78 05/31/19 15:35 99.8 05/31/19 15:00 100.4 60 25 152/77 (102) 98 05/31/19 14:00 72 16 157/67 (97) 98 05/31/19 13:00 71 15 171/80 (110) 98 05/31/19 12:00 Room Air 05/31/19 12:00 69 12 129/81 (97) 98 05/31/19 12:00 69 05/31/19 11:00 53 21 107/85 (92) 98 05/31/19 10:00 60 17 131/72 (91) 97 05/31/19 09:00 40 14 131/72 (91) 98 05/31/19 08:22 43 123/52 05/31/19 08:19 43 123/52 05/31/19 08:00 45 05/31/19 08:00 Room Air 05/31/19 08:00 98.1 41 16 123/52 (75) 95 05/31/19 07:00 68 17 110/64 (79) 97 05/31/19 06:00 54 16 98/54 (69) 98 05/31/19 05:00 58 17 114/63 (80) 96 05/31/19 04:00 Room Air 05/31/19 04:00 98.8 67 17 130/54 (79) 95 05/31/19 03:30 47 05/31/19 03:12 65 05/31/19 03:00 32 16 125/67 (86) 95 05/31/19 02:30 29 05/31/19 02:00 56 17 141/55 (83) 96 05/31/19 01:30 34 05/31/19 01:00 48 15 97 05/31/19 00:27 61 05/31/19 00:00 98.8 47 14 120/49 (72) 97 05/31/19 00:00 Room Air 05/30/19 23:00 59 23 131/102 (112) 94 05/30/19 22:21 99.1 65 20 121/74 (90) 93 05/30/19 22:21 99.1 65 20 121/74 (90) 93 05/30/19 22:15 Room Air 05/30/19 22:10 99.7 81 19 139/60 98 Room Air 94 05/30/19 21:50 56 139/60 05/30/19 21:50 99.7 81 19 137/75 98 Room Air 94 05/30/19 19:41 99.1 77 19 119/59 98 Room Air 94 Intake and Output 05/30/19 05/31/19 19:00 07:00 # Voids 1 # Bowel Movements 2 10 Laboratory Tests Test 05/31/19 04:00 05/31/19 11:55 White Blood Count 4.1 K/UL (4.8-10.8) L Red Blood Count 3.58 M/UL (4.20-5.40) L Hemoglobin 10.4 G/DL (12.0-16.0) L Hematocrit 30.7 % (37.0-47.0) L Mean Corpuscular Volume 86 FL (80-99) Mean Corpuscular Hemoglobin 29.2 PG (27.0-31.0) Mean Corpuscular Hemoglobin Concent 34.0 G/DL (32.0-36.0) Red Cell Distribution Width 13.2 % (11.6-14.8) Platelet Count 126 K/UL (150-450) L Mean Platelet Volume 11.0 FL (6.5-10.1) H Neutrophils (%) (Auto) 60.7 % (45.0-75.0) Lymphocytes (%) (Auto) 24.7 % (20.0-45.0) Monocytes (%) (Auto) 13.8 % (1.0-10.0) H Eosinophils (%) (Auto) 0.4 % (0.0-3.0) Basophils (%) (Auto) 0.5 % (0.0-2.0) Sodium Level 145 MMOL/L (136-145) Potassium Level 3.1 MMOL/L (3.5-5.1) L Chloride Level 110 MMOL/L (98-107) H Carbon Dioxide Level 23 MMOL/L (21-32) Anion Gap 12 mmol/L (5-15) Blood Urea Nitrogen 10 mg/dL (7-18) Creatinine 0.5 MG/DL (0.55-1.30) L Estimat Glomerular Filtration Rate > 60 mL/min (>60) Glucose Level 86 MG/DL (74-106) Hemoglobin A1c 5.9 % (4.3-6.0) Calcium Level 8.4 MG/DL (8.5-10.1) L D-Dimer 4.29 mg/L FEU (0.00-0.49) H Height (Feet): 5 Height (Inches): 3.00 Weight (Pounds): 149 Medications Current Medications Medications (Trade) Dose Ordered Sig/Claritza Route PRN Reason Start Time Stop Time Status Last Admin Dose Admin Acetaminophen (Tylenol) 650 mg Q4H PRN GT T>100.4 05/30/19 17:00 06/29/19 13:29 05/31/19 15:05 Acetaminophen (Tylenol) 650 mg Q4H PRN GT Mild Pain (Pain Scale 1-3) 05/30/19 17:00 06/29/19 13:29 Amlodipine Besylate (Norvasc) 5 mg DAILY GT 05/31/19 09:00 06/30/19 08:59 Ceftriaxone Sodium 1 gm/ Sodium Chloride 55 ml @ 110 mls/hr DAILY IVPB 05/31/19 09:00 06/07/19 08:59 05/31/19 09:10 Dextrose (Dextrose 50%) 25 ml Q30M PRN IV Hypoglycemia 05/30/19 13:30 08/28/19 13:29 Dextrose (Dextrose 50%) 50 ml Q30M PRN IV Hypoglycemia 05/30/19 13:30 08/28/19 13:29 Escitalopram Oxalate (Lexapro) 10 mg DAILY GT 05/31/19 09:00 06/30/19 08:59 Magnesium Hydroxide (Mom) 30 ml DAILYPRN PRN ORAL Constipation 05/30/19 16:45 06/29/19 16:44 Metronidazole (Flagyl) 500 mg Q6HR GT 05/30/19 18:00 06/06/19 17:59 05/31/19 17:24 Pantoprazole (Protonix) 40 mg DAILY IVP 05/31/19 11:00 06/30/19 10:59 05/31/19 12:08 Pravastatin Sodium (Pravachol) 80 mg BEDTIME GT 05/30/19 21:00 06/29/19 20:59 05/30/19 21:50 Risperidone (RisperDAL) 1 mg BID GT 05/30/19 18:00 07/14/19 17:59 05/31/19 17:24 Tramadol HCl (Ultram) 25 mg Q8H PRN GT Moderate Pain (Pain Scale 4-6) 05/30/19 17:30 06/06/19 17:29 Valproic Acid (Depakene) 250 mg Q12HR GT 05/30/19 21:00 06/29/19 20:59 05/30/19 21:51 Vancomycin HCl (Vanco rx to dose) 1 ea DAILY PRN MISC . 05/31/19 12:30 06/30/19 12:29 Vancomycin HCl 500 mg/Sodium Chloride 110 ml @ 110 mls/hr Q12HR@0300,1500 IVPB 05/31/19 15:00 06/05/19 14:59 05/31/19 14:50 Objective Narrative lethargtic, contracted, minimal withdraw all 4 Assessment/Plan Problem List: (1) Episode of generalized weakness ICD Codes: R53.1 - Weakness SNOMED: 12628174 (2) Encephalopathy ICD Codes: G93.40 - Encephalopathy SNOMED: 16474092 (3) Constipation ICD Codes: K59.00 - Constipation, unspecified SNOMED: 92223053 (4) Hypercalcemia ICD Codes: E83.52 - Hypercalcemia SNOMED: 25618208 (5) Dysphagia ICD Codes: R13.10 - Dysphagia, unspecified SNOMED: 85900969, 422978600 (6) Altered level of consciousness ICD Codes: R40.4 - Transient alteration of awareness SNOMED: 5426711 (7) Toxic encephalopathy ICD Codes: G92 - Toxic encephalopathy SNOMED: 75709856 (8) Thrombocytopenia ICD Codes: D69.6 - Thrombocytopenia, unspecified SNOMED: 159982653 (9) GIB (gastrointestinal bleeding) ICD Codes: K92.2 - Gastrointestinal hemorrhage, unspecified SNOMED: 68930761 (10) Lower GI bleed ICD Codes: K92.2 - Gastrointestinal hemorrhage, unspecified SNOMED: 34407121 (11) Epilepsy ICD Codes: G40.909 - Epilepsy, unspecified, not intractable, without status epilepticus SNOMED: 51823250 (12) Acute febrile illness ICD Codes: R50.9 - Fever, unspecified SNOMED: 183373370 (13) CVA (cerebral vascular accident) ICD Codes: I63.9 - Cerebral infarction, unspecified SNOMED: 843875922 (14) Suspected 2019 novel coronavirus infection ICD Codes: R68.89 - Other general symptoms and signs SNOMED: 440196818 (15) Diabetes mellitus ICD Codes: E11.9 - Type 2 diabetes mellitus without complications SNOMED: 22107480 (16) HTN (hypertension) ICD Codes: I10 - Essential (primary) hypertension SNOMED: 28872823 Assessment/Plan: ICU level of care MAp > 65 neuro checks q2h ATB per primary cont depakote 500 mg bid rule out covid19 del precautions no need for LP holding antiplatelets cc 35 min Larry Juarez MD May 31, 2019 18:34
--- NOTE | 2019-05-31 18:45 | Neurology Progress Note ---
Interim History Interim History ROS Limited/Unobtainable: Yes Interim History 74-year-old female from [facility] w/PMH CVA, dysphasia s/p PEG, dementia, epilepsy, ?DMT2 who presents with bright red blood per rectum. Patient came facility with multiple COVID positive patients, patient is pending COVID rule out. Patient poor historian/minimally communicative, history very limited due to clinical picture, history obtained via chart review and nurse from [place]. Patient's baseline mentation is unknown, nurse went to turn patient this a.m. and noted BRBPR with clumps of blood, patient at that time was diaphoretic, SPO2 90s Pt remains lethargic, contracted and non verbal Objective Physical Exam Last Vital Signs Date Time Temp Pulse Resp B/P (MAP) Pulse Ox O2 Delivery O2 Flow Rate FiO2 05/31/19 18:00 99.8 63 17 158/42 (80) 98 05/31/19 16:00 Room Air 05/30/19 22:10 94 Laboratory Tests Test 05/31/19 04:00 05/31/19 11:55 White Blood Count 4.1 K/UL (4.8-10.8) L Red Blood Count 3.58 M/UL (4.20-5.40) L Hemoglobin 10.4 G/DL (12.0-16.0) L Hematocrit 30.7 % (37.0-47.0) L Mean Corpuscular Volume 86 FL (80-99) Mean Corpuscular Hemoglobin 29.2 PG (27.0-31.0) Mean Corpuscular Hemoglobin Concent 34.0 G/DL (32.0-36.0) Red Cell Distribution Width 13.2 % (11.6-14.8) Platelet Count 126 K/UL (150-450) L Mean Platelet Volume 11.0 FL (6.5-10.1) H Neutrophils (%) (Auto) 60.7 % (45.0-75.0) Lymphocytes (%) (Auto) 24.7 % (20.0-45.0) Monocytes (%) (Auto) 13.8 % (1.0-10.0) H Eosinophils (%) (Auto) 0.4 % (0.0-3.0) Basophils (%) (Auto) 0.5 % (0.0-2.0) Sodium Level 145 MMOL/L (136-145) Potassium Level 3.1 MMOL/L (3.5-5.1) L Chloride Level 110 MMOL/L (98-107) H Carbon Dioxide Level 23 MMOL/L (21-32) Anion Gap 12 mmol/L (5-15) Blood Urea Nitrogen 10 mg/dL (7-18) Creatinine 0.5 MG/DL (0.55-1.30) L Estimat Glomerular Filtration Rate > 60 mL/min (>60) Glucose Level 86 MG/DL (74-106) Hemoglobin A1c 5.9 % (4.3-6.0) Calcium Level 8.4 MG/DL (8.5-10.1) L D-Dimer 4.29 mg/L FEU (0.00-0.49) H Neurologic Exam Objective lethargic, withdraws a to pain contracture in all 4. non verbal cc 36 min Impression/Recommendations Problems: (1) Episode of generalized weakness (2) Encephalopathy (3) Constipation (4) Hypercalcemia (5) Dysphagia (6) Altered level of consciousness (7) Toxic encephalopathy (8) Thrombocytopenia (9) GIB (gastrointestinal bleeding) (10) Lower GI bleed (11) Epilepsy (12) Acute febrile illness (13) CVA (cerebral vascular accident) (14) Suspected 2019 novel coronavirus infection (15) Diabetes mellitus (16) HTN (hypertension) Status: stable Diagnostic Impression ICU level of care MAp > 65 neuro checks q2h ATB per primary rule out covid19 del precautions no need for LP holding antiplatelets aLrry Juarez MD May 31, 2019 18:44
--- NOTE | 2019-05-31 19:10 | Consultation ---
History of Present Illness General Chief Complaint: Gastrointestinal Bleed Reason for Consultation: ams Present Illness Allergies: Coded Allergies: IODINE (Verified Allergy, Unknown, 11/10/17) Medication History Scheduled Amlodipine Besylate* (Amlodipine Besylate*), 5 MG GT DAILY, (Reported) Aspirin* (Aspir-Low*), 81 MG GT DAILY, (Reported) Carvedilol* (Carvedilol*), 6.25 MG GT TWICE A DAY, (Reported) Docusate Sodium (Docusate Sodium), 50 MG GT BID, (Reported) Escitalopram Oxalate* (Lexapro*), 10 MG GT DAILY, (Reported) Lactose-Reduced Food/Fiber (Jevity 1.5 Manolo Liquid), 910 ML GT 65 ML/HR FOR 14 HRS , (Reported) Multivitamin (Multivitamins), 1 EACH GT DAILY, (Reported) Center-3 Fatty Acids/Fish Oil (Fish Oil 1,000 Mg Softgel), 1 CAP GT DAILY, ( Reported) Omeprazole (Omeprazole), 20 MG GT DAILY, (Reported) Polyethylene Glycol 3350* (Polyethylene Glycol 3350*), 17 GM GT DAILY, (Reported ) Pravastatin Sod* (Pravastatin Sod*), 80 MG GT BEDTIME, (Reported) Risperidone* (Risperdal*), 1 MG GT BID, (Reported) Sennosides (Senna), 17.2 MG GT BEDTIME, (Reported) Valproate Sodium (Valproic Acid), 10 ML GT Q12HR, (Reported) Scheduled PRN Magnesium Hydroxide* (Milk Of Magnesia*), 30 ML ORAL DAILY PRN for Constipation, (Reported) Tramadol Hcl* (Ultram*), 25 MG GT Q8HR PRN for For Pain, (Reported) Patient History Healthcare decision maker Resuscitation status Full Code Advanced Directive on File Physical Exam Last 24 Hour Vital Signs Date Time Temp Pulse Resp B/P (MAP) Pulse Ox O2 Delivery O2 Flow Rate FiO2 05/31/19 18:00 99.8 63 17 158/42 (80) 98 05/31/19 17:00 56 24 146/56 (86) 98 05/31/19 16:00 Room Air 05/31/19 16:00 99.6 69 17 134/73 (93) 97 05/31/19 16:00 78 05/31/19 15:35 99.8 05/31/19 15:00 100.4 60 25 152/77 (102) 98 05/31/19 14:00 72 16 157/67 (97) 98 05/31/19 13:00 71 15 171/80 (110) 98 05/31/19 12:00 Room Air 05/31/19 12:00 69 12 129/81 (97) 98 05/31/19 12:00 69 05/31/19 11:00 53 21 107/85 (92) 98 05/31/19 10:00 60 17 131/72 (91) 97 05/31/19 09:00 40 14 131/72 (91) 98 05/31/19 08:22 43 123/52 05/31/19 08:19 43 123/52 05/31/19 08:00 45 05/31/19 08:00 Room Air 05/31/19 08:00 98.1 41 16 123/52 (75) 95 05/31/19 07:00 68 17 110/64 (79) 97 05/31/19 06:00 54 16 98/54 (69) 98 05/31/19 05:00 58 17 114/63 (80) 96 05/31/19 04:00 Room Air 05/31/19 04:00 98.8 67 17 130/54 (79) 95 05/31/19 03:30 47 05/31/19 03:12 65 05/31/19 03:00 32 16 125/67 (86) 95 05/31/19 02:30 29 05/31/19 02:00 56 17 141/55 (83) 96 05/31/19 01:30 34 05/31/19 01:00 48 15 97 05/31/19 00:27 61 05/31/19 00:00 98.8 47 14 120/49 (72) 97 05/31/19 00:00 Room Air 05/30/19 23:00 59 23 131/102 (112) 94 05/30/19 22:21 99.1 65 20 121/74 (90) 93 05/30/19 22:21 99.1 65 20 121/74 (90) 93 05/30/19 22:15 Room Air 05/30/19 22:10 99.7 81 19 139/60 98 Room Air 94 05/30/19 21:50 56 139/60 05/30/19 21:50 99.7 81 19 137/75 98 Room Air 94 05/30/19 19:41 99.1 77 19 119/59 98 Room Air 94 Intake and Output 05/30/19 05/31/19 19:00 07:00 # Voids 1 # Bowel Movements 2 10 Laboratory Tests Test 05/31/19 04:00 05/31/19 11:55 White Blood Count 4.1 K/UL (4.8-10.8) L Red Blood Count 3.58 M/UL (4.20-5.40) L Hemoglobin 10.4 G/DL (12.0-16.0) L Hematocrit 30.7 % (37.0-47.0) L Mean Corpuscular Volume 86 FL (80-99) Mean Corpuscular Hemoglobin 29.2 PG (27.0-31.0) Mean Corpuscular Hemoglobin Concent 34.0 G/DL (32.0-36.0) Red Cell Distribution Width 13.2 % (11.6-14.8) Platelet Count 126 K/UL (150-450) L Mean Platelet Volume 11.0 FL (6.5-10.1) H Neutrophils (%) (Auto) 60.7 % (45.0-75.0) Lymphocytes (%) (Auto) 24.7 % (20.0-45.0) Monocytes (%) (Auto) 13.8 % (1.0-10.0) H Eosinophils (%) (Auto) 0.4 % (0.0-3.0) Basophils (%) (Auto) 0.5 % (0.0-2.0) Sodium Level 145 MMOL/L (136-145) Potassium Level 3.1 MMOL/L (3.5-5.1) L Chloride Level 110 MMOL/L (98-107) H Carbon Dioxide Level 23 MMOL/L (21-32) Anion Gap 12 mmol/L (5-15) Blood Urea Nitrogen 10 mg/dL (7-18) Creatinine 0.5 MG/DL (0.55-1.30) L Estimat Glomerular Filtration Rate > 60 mL/min (>60) Glucose Level 86 MG/DL (74-106) Hemoglobin A1c 5.9 % (4.3-6.0) Calcium Level 8.4 MG/DL (8.5-10.1) L D-Dimer 4.29 mg/L FEU (0.00-0.49) H Height (Feet): 5 Height (Inches): 3.00 Weight (Pounds): 149 Medications Current Medications Medications (Trade) Dose Ordered Sig/Claritza Route PRN Reason Start Time Stop Time Status Last Admin Dose Admin Acetaminophen (Tylenol) 650 mg Q4H PRN GT T>100.4 05/30/19 17:00 06/29/19 13:29 05/31/19 15:05 Acetaminophen (Tylenol) 650 mg Q4H PRN GT Mild Pain (Pain Scale 1-3) 05/30/19 17:00 06/29/19 13:29 Amlodipine Besylate (Norvasc) 5 mg DAILY GT 05/31/19 09:00 06/30/19 08:59 Ceftriaxone Sodium 1 gm/ Sodium Chloride 55 ml @ 110 mls/hr DAILY IVPB 05/31/19 09:00 06/07/19 08:59 05/31/19 09:10 Dextrose (Dextrose 50%) 25 ml Q30M PRN IV Hypoglycemia 05/30/19 13:30 08/28/19 13:29 Dextrose (Dextrose 50%) 50 ml Q30M PRN IV Hypoglycemia 05/30/19 13:30 08/28/19 13:29 Escitalopram Oxalate (Lexapro) 10 mg DAILY GT 05/31/19 09:00 06/30/19 08:59 Magnesium Hydroxide (Mom) 30 ml DAILYPRN PRN ORAL Constipation 05/30/19 16:45 06/29/19 16:44 Metronidazole (Flagyl) 500 mg Q6HR GT 05/30/19 18:00 06/06/19 17:59 05/31/19 17:24 Pantoprazole (Protonix) 40 mg DAILY IVP 05/31/19 11:00 06/30/19 10:59 05/31/19 12:08 Pravastatin Sodium (Pravachol) 80 mg BEDTIME GT 05/30/19 21:00 06/29/19 20:59 05/30/19 21:50 Risperidone (RisperDAL) 1 mg BID GT 05/30/19 18:00 07/14/19 17:59 05/31/19 17:24 Tramadol HCl (Ultram) 25 mg Q8H PRN GT Moderate Pain (Pain Scale 4-6) 05/30/19 17:30 06/06/19 17:29 Valproic Acid (Depakene) 250 mg Q12HR GT 05/30/19 21:00 06/29/19 20:59 05/30/19 21:51 Vancomycin HCl (Vanco rx to dose) 1 ea DAILY PRN MISC . 05/31/19 12:30 06/30/19 12:29 Vancomycin HCl 500 mg/Sodium Chloride 110 ml @ 110 mls/hr Q12HR@0300,1500 IVPB 05/31/19 15:00 06/05/19 14:59 05/31/19 14:50 Assessment/Plan Assessment/Plan: Hematology Consultation Note Reason for Hospitalization: Gastrointestinal Bleed RFC: Pancytopenia REQ MD: Lillian Fermin DOS: 05/31/2019 HPI 74-year-old female from [facility] w/PMH CVA, dysphasia s/p PEG, dementia, epilepsy, ?DMT2 who presents with bright red blood per rectum. Patient came facility with multiple COVID positive patients, patient is pending COVID rule out. Patient poor historian/minimally communicative, history very limited due to clinical picture, history obtained via chart review and nurse from [place]. Patient's baseline mentation is unknown, nurse went to turn patient this a.m. and noted BRBPR with clumps of blood, patient at that time was diaphoretic, SPO2 90s, and nurse sent patient to the ED for further treatment and evaluation. In the ED, patient awake, alert, however noncommunicative, appears comfortable. Patient admitted for further treatment and evaluation. labs has been reviewed, is in the icu at this time for covid rule out. PMH: CVA, dysphasia s/p PEG tube, severe dementia, ?DMT2, HLD, epilepsy FHx: Reviewed and not pertinent SH: from [facility], otherwise limited due to patient communication Allergies: Iodine Allergies: Coded Allergies: IODINE (Verified Allergy, Unknown, 11/10/17) COVID-19 Screening Contact w/high risk pt: No Recent Travel to affected area: No Experienced COVID-19 symptoms?: No Medication History Scheduled Amlodipine Besylate* (Amlodipine Besylate*), 5 MG GT DAILY, (Reported) Aspirin* (Aspir-Low*), 81 MG GT DAILY, (Reported) Carvedilol* (Carvedilol*), 6.25 MG GT TWICE A DAY, (Reported) Docusate Sodium (Docusate Sodium), 50 MG GT BID, (Reported) Escitalopram Oxalate* (Lexapro*), 10 MG GT DAILY, (Reported) Lactose-Reduced Food/Fiber (Jevity 1.5 Manolo Liquid), 910 ML GT 65 ML/HR FOR 14 HRS , (Reported) Multivitamin (Multivitamins), 1 EACH GT DAILY, (Reported) Center-3 Fatty Acids/Fish Oil (Fish Oil 1,000 Mg Softgel), 1 CAP GT DAILY, ( Reported) Omeprazole (Omeprazole), 20 MG GT DAILY, (Reported) Polyethylene Glycol 3350* (Polyethylene Glycol 3350*), 17 GM GT DAILY, (Reported ) Pravastatin Sod* (Pravastatin Sod*), 80 MG GT BEDTIME, (Reported) Risperidone* (Risperdal*), 1 MG GT BID, (Reported) Sennosides (Senna), 17.2 MG GT BEDTIME, (Reported) Valproate Sodium (Valproic Acid), 10 ML GT Q12HR, (Reported) Scheduled PRN Magnesium Hydroxide* (Milk Of Magnesia*), 30 ML ORAL DAILY PRN for Constipation , (Reported) Tramadol Hcl* (Ultram*), 25 MG GT Q8HR PRN for For Pain, (Reported) Patient History Healthcare decision maker Resuscitation status Advanced Directive on File Review of Systems ROS Narrative Unable to obtain due to clinical picture, patient minimally communicative. Physical Exam Physical Exam Narrative General: NAD, A&O x 1, awake, alert, noncommunicative HEENT: NCAT, EOMi, dry mucous membranes CV: RRR, no murmurs, rubs, or gallops Pulm: CTAB, No wheezes, rhonchi, or rales, no accessory muscle usage or conversational dyspnea GI: Soft, nontender, nondistended, bowel sounds present, +PEG c/d/i Neuro: Limited due to patient communication/participation Ext: No lower extremity edema bilaterally Skin: no rashes lesions or ulcers Labs: reviewed Imaging: noted Assessment and Recs: # Pancytopenia with Acute blood loss anemia, currently has been progressing --> likely related to underlying infection, covid rule out at this time --> currently is in the icu, hepatitis and hiv are pending --> us of the abdomen is pending, r/o hsm and cirrhosis --> smear of the periphery is pending --> abx as per id, started --> pressors prn # Acute GIB, with decrease in h/h --> Hgb stable on admission hgb 14-->11 --> no evidence of hemolyis is noted --> transfuse as needed, hgb goal >7 --> IVF --> Protonix given in ED --> GI consulted, Dr Doan: GT lavage neg, transfuse plts, prep for possible colonoscopy, also per surg # Fever rule out covid 19 --> currently is on iso --> COVID pending --> KUB negative --> CXR ?right lung infiltrate --> per pulm # DMT2 --> accuchecks qac and qhs --> iss prn # HTN --> sbp goal is less than 140 --> as per cards # HLD --> holding ASA given acute GIB # H/o Epilepsy # Seizures # Dementia # Dysphagia s/p PEG --> on tfs # DVT PPx: SCDs given acute GIB Appreciate consultation and Timothy Foote Rn, MD May 31, 2019 19:10
[2019-06-01] VITALS (23 sets, daily range): BP systolic 103–156; BP diastolic 49–123
[2019-06-01] MEDS: metroNIDAZOLE 500mg tab GT SCH ×4 (00:30→18:01)
[2019-06-01] MEDS: Vancomycin 500 MG in NS 110 ML IVPB SCH ×2 (03:21→15:22)
[2019-06-01 05:31] LABS: BASOPHILS % (AUTO) 0.4 % (0.0-2.0); EOSINOPHILS % (AUTO) 0.4 % (0.0-3.0); HEMATOCRIT 33.5 % (37.0-47.0); HEMOGLOBIN 11.5 G/DL (12.0-16.0); MEAN CORPUSCULAR VOLUME 86 FL (80-99); MONOCYTES % (AUTO) 10.6 % (1.0-10.0); NEUTROPHILS % (AUTO) 61.6 % (45.0-75.0); PLATELET COUNT 124 K/UL (150-450); RED BLOOD COUNT 3.89 M/UL (4.20-5.40); RED CELL DISTRIBUTION WIDTH 12.9 % (11.6-14.8); WHITE BLOOD COUNT 4.8 K/UL (4.8-10.8)
[2019-06-01 06:07] LABS: ANION GAP 12 mmol/L (5-15); BLOOD UREA NITROGEN 8 mg/dL (7-18); CALCIUM 9.2 MG/DL (8.5-10.1); CARBON DIOXIDE 22 MMOL/L (21-32); CHLORIDE 110 MMOL/L (98-107); CREATININE 0.5 MG/DL (0.55-1.30); POTASSIUM 3.5 MMOL/L (3.5-5.1); SODIUM 144 MMOL/L (136-145)
[2019-06-01 06:12] LABS: % IRON SATURATION 13 % (15-50); IRON 23 ug/dL (50-175); TOTAL IRON BINDING CAPACITY 181 ug/dL (250-450)
[2019-06-01 06:29] LABS: FERRITIN 343 NG/ML (8-388)
[2019-06-01] MEDS: Valproic Acid 250mg/5ml Liquid GT SCH ×2 (08:17→20:51)
[2019-06-01] MEDS: Pantoprazole Inj IVP SCH (08:54)
[2019-06-01] MEDS: cefTRIAXone 1 GM in NS 55 ML IVPB SCH (08:55)
--- NOTE | 2019-06-01 08:55 | Neurology Progress Note ---
Interim History Interim History ROS Limited/Unobtainable: Yes Interim History no seizures, moving more today cont depakote 500 mg bid Objective Physical Exam Last Vital Signs Date Time Temp Pulse Resp B/P (MAP) Pulse Ox O2 Delivery O2 Flow Rate FiO2 06/01/19 08:18 84 129/112 06/01/19 08:00 12 96 06/01/19 08:00 Room Air 06/01/19 04:00 98.2 05/30/19 22:10 94 Laboratory Tests Test 05/31/19 11:55 06/01/19 04:00 D-Dimer 4.29 mg/L FEU (0.00-0.49) H White Blood Count 4.8 K/UL (4.8-10.8) Red Blood Count 3.89 M/UL (4.20-5.40) L Hemoglobin 11.5 G/DL (12.0-16.0) L Hematocrit 33.5 % (37.0-47.0) L Mean Corpuscular Volume 86 FL (80-99) Mean Corpuscular Hemoglobin 29.7 PG (27.0-31.0) Mean Corpuscular Hemoglobin Concent 34.5 G/DL (32.0-36.0) Red Cell Distribution Width 12.9 % (11.6-14.8) Platelet Count 124 K/UL (150-450) L Mean Platelet Volume 8.9 FL (6.5-10.1) Neutrophils (%) (Auto) 61.6 % (45.0-75.0) Lymphocytes (%) (Auto) 27.0 % (20.0-45.0) Monocytes (%) (Auto) 10.6 % (1.0-10.0) H Eosinophils (%) (Auto) 0.4 % (0.0-3.0) Basophils (%) (Auto) 0.4 % (0.0-2.0) Prothrombin Time 10.2 SEC (9.30-11.50) Prothromb Time International Ratio 1.0 (0.9-1.1) Sodium Level 144 MMOL/L (136-145) Potassium Level 3.5 MMOL/L (3.5-5.1) Chloride Level 110 MMOL/L (98-107) H Carbon Dioxide Level 22 MMOL/L (21-32) Anion Gap 12 mmol/L (5-15) Blood Urea Nitrogen 8 mg/dL (7-18) Creatinine 0.5 MG/DL (0.55-1.30) L Estimat Glomerular Filtration Rate > 60 mL/min (>60) Glucose Level 72 MG/DL (74-106) L Calcium Level 9.2 MG/DL (8.5-10.1) Iron Level 23 ug/dL (50-175) L Total Iron Binding Capacity 181 ug/dL (250-450) L Percent Iron Saturation 13 % (15-50) L Unsaturated Iron Binding 158 ug/dL (112-346) Ferritin 343 NG/ML (8-388) Troponin I 0.006 ng/mL (0.000-0.056) Thyroid Stimulating Hormone (TSH) 1.677 uiU/mL (0.358-3.740) Free Thyroxine 1.11 NG/DL (0.76-1.46) Hepatitis A IgM Antibody Pending Hepatitis B Surface Antigen Pending Hepatitis B Core IgM Antibody Pending Hepatitis C Antibody Pending Neurologic Exam Objective lethargic, withdraws a to pain contracture in all 4. non verbal cc 36 min Impression/Recommendations Problems: (1) Episode of generalized weakness (2) Encephalopathy (3) Constipation (4) Hypercalcemia (5) Dysphagia (6) Altered level of consciousness (7) Toxic encephalopathy (8) Thrombocytopenia (9) GIB (gastrointestinal bleeding) (10) Lower GI bleed (11) Epilepsy (12) Acute febrile illness (13) CVA (cerebral vascular accident) (14) Suspected 2019 novel coronavirus infection (15) Diabetes mellitus (16) HTN (hypertension) Status: stable Diagnostic Impression ICU level of care MAp > 65 neuro checks q2h ATB per primary cont depakote 500 mg bid rule out covid19 del precautions no need for LP holding antiplatelets Larry Juarez MD Jun 01, 2019 08:55
--- NOTE | 2019-06-01 09:53 | General Progress Note ---
Assessment/Plan Problem List: (1) Suspected 2019 novel coronavirus infection ICD Codes: R68.89 - Other general symptoms and signs SNOMED: 075945032 (2) Lower GI bleed ICD Codes: K92.2 - Gastrointestinal hemorrhage, unspecified SNOMED: 53673390 (3) Thrombocytopenia ICD Codes: D69.6 - Thrombocytopenia, unspecified SNOMED: 331352053 (4) Diabetes mellitus ICD Codes: E11.9 - Type 2 diabetes mellitus without complications SNOMED: 70455805 (5) HTN (hypertension) ICD Codes: I10 - Essential (primary) hypertension SNOMED: 70939907 Status: stable Assessment/Plan: neg GT lavage s/p PLT transfusion ? diverticular bleed no recurrent bleeding over night plan for colonoscopy tomorrow keep NPO for today will fu Subjective ROS Limited/Unobtainable: No Allergies: Coded Allergies: IODINE (Verified Allergy, Unknown, 11/10/17) Objective Last 24 Hour Vital Signs Date Time Temp Pulse Resp B/P (MAP) Pulse Ox O2 Delivery O2 Flow Rate FiO2 06/01/19 08:18 84 129/112 06/01/19 08:00 86 12 129/112 (118) 96 06/01/19 08:00 Room Air 06/01/19 07:00 60 21 125/55 (78) 100 06/01/19 06:00 70 22 132/101 (111) 100 06/01/19 05:00 60 22 126/66 (86) 99 06/01/19 04:00 Room Air 06/01/19 04:00 98.2 82 15 118/80 (93) 97 06/01/19 04:00 53 06/01/19 03:00 60 23 134/49 (77) 96 06/01/19 02:00 50 17 126/54 (78) 100 06/01/19 01:00 56 20 112/53 (72) 99 06/01/19 00:00 55 16 103/86 (92) 97 06/01/19 00:00 Room Air 06/01/19 00:00 52 06/01/19 00:00 98.1 61 18 114/53 (73) 99 05/31/19 23:00 60 26 115/50 (71) 94 05/31/19 22:00 54 16 119/55 (76) 98 05/31/19 21:00 61 21 131/60 (83) 97 05/31/19 20:00 Room Air 05/31/19 20:00 98.5 61 20 120/74 (89) 96 05/31/19 20:00 71 05/31/19 19:00 66 25 121/61 (81) 96 05/31/19 18:00 99.8 63 17 158/42 (80) 98 05/31/19 17:00 56 24 146/56 (86) 98 05/31/19 16:00 Room Air 05/31/19 16:00 99.6 69 17 134/73 (93) 97 05/31/19 16:00 78 05/31/19 15:35 99.8 05/31/19 15:00 100.4 60 25 152/77 (102) 98 05/31/19 14:00 72 16 157/67 (97) 98 05/31/19 13:00 71 15 171/80 (110) 98 05/31/19 12:00 Room Air 05/31/19 12:00 69 12 129/81 (97) 98 05/31/19 12:00 69 05/31/19 11:00 53 21 107/85 (92) 98 05/31/19 10:00 60 17 131/72 (91) 97 Intake and Output 05/31/19 06/01/19 19:00 07:00 Intake Total 585 ml 180 ml Balance 585 ml 180 ml Intake IV Total 465 ml Other 120 ml 180 ml # Voids 3 # Bowel Movements 3 4 Laboratory Tests 05/31/19 11:55: D-Dimer 4.29H 06/01/19 04:00: White Blood Count 4.8, Red Blood Count 3.89L, Hemoglobin 11.5L, Hematocrit 33.5L , Mean Corpuscular Volume 86, Mean Corpuscular Hemoglobin 29.7, Mean Corpuscular Hemoglobin Concent 34.5, Red Cell Distribution Width 12.9, Platelet Count 124L, Mean Platelet Volume 8.9, Neutrophils (%) (Auto) 61.6, Lymphocytes ( %) (Auto) 27.0, Monocytes (%) (Auto) 10.6H, Eosinophils (%) (Auto) 0.4, Basophils (%) (Auto) 0.4, Prothrombin Time 10.2, Prothromb Time International Ratio 1.0, Sodium Level 144, Potassium Level 3.5, Chloride Level 110H, Carbon Dioxide Level 22, Anion Gap 12, Blood Urea Nitrogen 8, Creatinine 0.5L, Estimat Glomerular Filtration Rate > 60, Glucose Level 72L, Calcium Level 9.2, Iron Level 23L, Total Iron Binding Capacity 181L, Percent Iron Saturation 13L, Unsaturated Iron Binding 158, Ferritin 343, Troponin I 0.006, Thyroid Stimulating Hormone (TSH) 1.677, Free Thyroxine 1.11, Hepatitis A IgM Antibody [ Pending], Hepatitis B Surface Antigen [Pending], Hepatitis B Core IgM Antibody [ Pending], Hepatitis C Antibody [Pending] Height (Feet): 5 Height (Inches): 3.00 Weight (Pounds): 135 General Appearance: no apparent distress EENT: normal ENT inspection Neck: supple Cardiovascular: normal rate Respiratory/Chest: decreased breath sounds Abdomen: normal bowel sounds, non tender, soft Extremities: non-tender Thang Doan MD Jun 01, 2019 09:53
--- NOTE | 2019-06-01 09:56 | General Progress Note ---
Assessment/Plan Status: stable Assessment/Plan: 74-year-old female from [facility] w/PMH CVA, dysphasia s/p PEG, dementia, epilepsy, ?DMT2 who presents with bright red blood per rectum, GIB. Patient came facility with multiple COVID positive patients, patient is pending COVID rule out. #Acute blood loss anemia #Acute GIB -continue inpatient level of care -Hb up to 11 today -cont. to monitor hgb -Cont Protonix -GI following, plan for colonoscopy on 06/01 -Surgery following -Cardio following #COVID exposure, PCR negative #Fever -fever 102.7 rectal in ED -can stop droplet precautions -COVID pending -KUB negative -CXR ?right lung infiltrate -BCx pending -Cont current abx -ID and Pulm consulted #?DMT2 -per chart review pt w/h/o DM -no medications seen in APR from [place] #HTN #HLD -holding ASA given acute GIB -cont. home coreg w/hold parameters #H/o Epilepsy #Seizures #?Dementia -no seizure activity reported by NH -cont. valproic acid -check valproic acid level -cont. home risperdol -Neurology consulted #Dysphagia s/p PEG -TF per nutrition DVT PPx: SCDs given acute GIB Time spent on encounter: 35 mins, >50% on counseling, coordination of care. I spent an additional 35 minutes on review of medical records including prior records, consult notes, progress notes, procedures, imaging, labs, hemodynamics , and other clinical documentation. Time of note doesn't reflect time of encounter. Subjective Date patient seen: Jun 01, 2019 Time patient seen: 09:11 ROS Limited/Unobtainable: Yes Allergies: Coded Allergies: IODINE (Verified Allergy, Unknown, 11/10/17) Subjective Follow up for acute blood loss anemia COVI-19 ruled out, no need for second PCR study per ID No acute bleeding overnight, Hb improved Discussed with RN Objective Last 24 Hour Vital Signs Date Time Temp Pulse Resp B/P (MAP) Pulse Ox O2 Delivery O2 Flow Rate FiO2 06/01/19 08:18 84 129/112 06/01/19 08:00 86 12 129/112 (118) 96 06/01/19 08:00 Room Air 06/01/19 07:00 60 21 125/55 (78) 100 06/01/19 06:00 70 22 132/101 (111) 100 06/01/19 05:00 60 22 126/66 (86) 99 06/01/19 04:00 Room Air 06/01/19 04:00 98.2 82 15 118/80 (93) 97 06/01/19 04:00 53 06/01/19 03:00 60 23 134/49 (77) 96 06/01/19 02:00 50 17 126/54 (78) 100 06/01/19 01:00 56 20 112/53 (72) 99 06/01/19 00:00 55 16 103/86 (92) 97 06/01/19 00:00 Room Air 06/01/19 00:00 52 06/01/19 00:00 98.1 61 18 114/53 (73) 99 05/31/19 23:00 60 26 115/50 (71) 94 05/31/19 22:00 54 16 119/55 (76) 98 05/31/19 21:00 61 21 131/60 (83) 97 05/31/19 20:00 Room Air 05/31/19 20:00 98.5 61 20 120/74 (89) 96 05/31/19 20:00 71 05/31/19 19:00 66 25 121/61 (81) 96 05/31/19 18:00 99.8 63 17 158/42 (80) 98 05/31/19 17:00 56 24 146/56 (86) 98 05/31/19 16:00 Room Air 05/31/19 16:00 99.6 69 17 134/73 (93) 97 05/31/19 16:00 78 05/31/19 15:35 99.8 05/31/19 15:00 100.4 60 25 152/77 (102) 98 05/31/19 14:00 72 16 157/67 (97) 98 05/31/19 13:00 71 15 171/80 (110) 98 05/31/19 12:00 Room Air 05/31/19 12:00 69 12 129/81 (97) 98 05/31/19 12:00 69 05/31/19 11:00 53 21 107/85 (92) 98 05/31/19 10:00 60 17 131/72 (91) 97 Intake and Output 05/31/19 06/01/19 19:00 07:00 Intake Total 585 ml 180 ml Balance 585 ml 180 ml Intake IV Total 465 ml Other 120 ml 180 ml # Voids 3 # Bowel Movements 3 4 Laboratory Tests 05/31/19 11:55: D-Dimer 4.29H 06/01/19 04:00: White Blood Count 4.8, Red Blood Count 3.89L, Hemoglobin 11.5L, Hematocrit 33.5L , Mean Corpuscular Volume 86, Mean Corpuscular Hemoglobin 29.7, Mean Corpuscular Hemoglobin Concent 34.5, Red Cell Distribution Width 12.9, Platelet Count 124L, Mean Platelet Volume 8.9, Neutrophils (%) (Auto) 61.6, Lymphocytes ( %) (Auto) 27.0, Monocytes (%) (Auto) 10.6H, Eosinophils (%) (Auto) 0.4, Basophils (%) (Auto) 0.4, Prothrombin Time 10.2, Prothromb Time International Ratio 1.0, Sodium Level 144, Potassium Level 3.5, Chloride Level 110H, Carbon Dioxide Level 22, Anion Gap 12, Blood Urea Nitrogen 8, Creatinine 0.5L, Estimat Glomerular Filtration Rate > 60, Glucose Level 72L, Calcium Level 9.2, Iron Level 23L, Total Iron Binding Capacity 181L, Percent Iron Saturation 13L, Unsaturated Iron Binding 158, Ferritin 343, Troponin I 0.006, Thyroid Stimulating Hormone (TSH) 1.677, Free Thyroxine 1.11, Hepatitis A IgM Antibody [ Pending], Hepatitis B Surface Antigen [Pending], Hepatitis B Core IgM Antibody [ Pending], Hepatitis C Antibody [Pending] Height (Feet): 5 Height (Inches): 3.00 Weight (Pounds): 135 General Appearance: alert, confused Neck: supple Cardiovascular: normal rate, regular rhythm Respiratory/Chest: lungs clear, normal breath sounds Abdomen: non tender, soft Pierce Baptiste MD Jun 01, 2019 09:56
--- NOTE | 2019-06-01 10:02 | Hematology/Onc Progress Note ---
Assessment/Plan Assessment/Plan Assessment and Recs: # Pancytopenia with Acute blood loss anemia, currently has been progressing --> likely related to underlying infection, covid rule out at this time --> currently is in the icu, hepatitis and hiv are pending --> us of the abdomen is pending, r/o hsm and cirrhosis --> smear of the periphery is pending --> abx as per id, started --> pressors prn --> 06/01 for colo by Olimpia # Acute GIB, with decrease in h/h --> Hgb stable on admission hgb 14-->11 --> no evidence of hemolyis is noted --> transfuse as needed, hgb goal >7 --> IVF hgb trend 10.4-->11.5 --> Protonix given in ED --> GI consulted, Dr Doan: GT lavage neg, transfuse plts, prep for possible colonoscopy, also per surg # Fever rule out covid 19 --> currently is on iso --> COVID pending --> KUB negative --> CXR ?right lung infiltrate --> per pulm # DMT2 --> accuchecks qac and qhs --> iss prn # HTN --> sbp goal is less than 140 --> as per cards # HLD --> holding ASA given acute GIB # H/o Epilepsy # Seizures # Dementia # Dysphagia s/p PEG --> on tfs # DVT PPx: SCDs given acute GIB Appreciate consultation and jose Rn Subjective HEENT: Denies: no symptoms, eye pain, blurred vision, tearing, double vision, ear pain, ear discharge, nose pain, nose congestion, throat pain, throat swelling, mouth pain, mouth swelling, other Cardiovascular: Denies: no symptoms, chest pain, edema, irregular heart rate, lightheadedness, palpitations, syncope, other Respiratory: Denies: no symptoms, cough, shortness of breath, SOB with excertion, SOB at rest, sputum, wheezing, other Gastrointestinal/Abdominal: Denies: no symptoms, abdomen distended, abdominal pain, black stools, tarry stools, blood in stool, constipated, diarrhea, difficulty swallowing, nausea, poor appetite, poor fluid intake, rectal bleeding , vomiting, other Genitourinary: Denies: no symptoms, burning, discharge, frequency, flank pain, hematuria, incontinence, pain, urgency, other Neurologic/Psychiatric: Denies: no symptoms, anxiety, depressed, emotional problems, headache, numbness, paresthesia, pre-existing deficit, seizure, tingling, tremors, weakness, other Endocrine: Denies: no symptoms, excessive sweating, flushing, intolerance to cold, intolerance to heat, increased hunger, increased thirst, increased urine, unexplained weight gain, unexplained weight loss, other Hematologic/Lymphatic: Denies: no symptoms, anemia, easy bleeding, easy bruising, adenopathy, other Allergies: Coded Allergies: IODINE (Verified Allergy, Unknown, 11/10/17) Subjective 05/31 is for colo tomorrow, labs reviewed, hgb stable Objective Objective Current Medications Medications (Trade) Dose Ordered Sig/Claritza Route PRN Reason Start Time Stop Time Status Last Admin Dose Admin Acetaminophen (Tylenol) 650 mg Q4H PRN GT T>100.4 05/30/19 17:00 06/29/19 13:29 05/31/19 15:05 Acetaminophen (Tylenol) 650 mg Q4H PRN GT Mild Pain (Pain Scale 1-3) 05/30/19 17:00 06/29/19 13:29 Amlodipine Besylate (Norvasc) 5 mg DAILY GT 05/31/19 09:00 06/30/19 08:59 Ceftriaxone Sodium 1 gm/ Sodium Chloride 55 ml @ 110 mls/hr DAILY IVPB 05/31/19 09:00 06/07/19 08:59 06/01/19 08:55 Dextrose (Dextrose 50%) 25 ml Q30M PRN IV Hypoglycemia 05/30/19 13:30 08/28/19 13:29 Dextrose (Dextrose 50%) 50 ml Q30M PRN IV Hypoglycemia 05/30/19 13:30 08/28/19 13:29 Escitalopram Oxalate (Lexapro) 10 mg DAILY GT 05/31/19 09:00 06/30/19 08:59 Iron Sucrose 100 mg/Sodium Chloride 60 ml @ 240 mls/hr BEDTIME IVPB 06/01/19 21:00 06/05/19 21:14 UNV Magnesium Hydroxide (Mom) 30 ml DAILYPRN PRN ORAL Constipation 05/30/19 16:45 06/29/19 16:44 Metronidazole (Flagyl) 500 mg Q6HR GT 05/30/19 18:00 06/06/19 17:59 06/01/19 05:42 Pantoprazole (Protonix) 40 mg DAILY IVP 05/31/19 11:00 06/30/19 10:59 06/01/19 08:54 Polyethylene Glycol/ Electrolytes (Nulytely) 2,000 ml ONCE ONCE ORAL 06/01/19 18:00 06/01/19 18:01 UNV Pravastatin Sodium (Pravachol) 80 mg BEDTIME GT 05/30/19 21:00 06/29/19 20:59 05/31/19 21:00 Risperidone (RisperDAL) 1 mg BID GT 05/30/19 18:00 07/14/19 17:59 05/31/19 17:24 Tramadol HCl (Ultram) 25 mg Q8H PRN GT Moderate Pain (Pain Scale 4-6) 05/30/19 17:30 06/06/19 17:29 Valproic Acid (Depakene) 250 mg Q12HR GT 05/30/19 21:00 06/29/19 20:59 05/31/19 21:00 Vancomycin HCl (Vanco rx to dose) 1 ea DAILY PRN MISC . 05/31/19 12:30 06/30/19 12:29 Vancomycin HCl 500 mg/Sodium Chloride 110 ml @ 110 mls/hr Q12HR@0300,1500 IVPB 05/31/19 15:00 06/05/19 14:59 06/01/19 03:21 Last 24 Hour Vital Signs Date Time Temp Pulse Resp B/P (MAP) Pulse Ox O2 Delivery O2 Flow Rate FiO2 06/01/19 08:18 84 129/112 06/01/19 08:00 86 12 129/112 (118) 96 06/01/19 08:00 Room Air 06/01/19 07:00 60 21 125/55 (78) 100 06/01/19 06:00 70 22 132/101 (111) 100 06/01/19 05:00 60 22 126/66 (86) 99 06/01/19 04:00 Room Air 06/01/19 04:00 98.2 82 15 118/80 (93) 97 06/01/19 04:00 53 06/01/19 03:00 60 23 134/49 (77) 96 06/01/19 02:00 50 17 126/54 (78) 100 06/01/19 01:00 56 20 112/53 (72) 99 06/01/19 00:00 55 16 103/86 (92) 97 06/01/19 00:00 Room Air 06/01/19 00:00 52 06/01/19 00:00 98.1 61 18 114/53 (73) 99 05/31/19 23:00 60 26 115/50 (71) 94 05/31/19 22:00 54 16 119/55 (76) 98 05/31/19 21:00 61 21 131/60 (83) 97 05/31/19 20:00 Room Air 05/31/19 20:00 98.5 61 20 120/74 (89) 96 05/31/19 20:00 71 05/31/19 19:00 66 25 121/61 (81) 96 05/31/19 18:00 99.8 63 17 158/42 (80) 98 05/31/19 17:00 56 24 146/56 (86) 98 05/31/19 16:00 Room Air 05/31/19 16:00 99.6 69 17 134/73 (93) 97 05/31/19 16:00 78 05/31/19 15:35 99.8 05/31/19 15:00 100.4 60 25 152/77 (102) 98 05/31/19 14:00 72 16 157/67 (97) 98 05/31/19 13:00 71 15 171/80 (110) 98 05/31/19 12:00 Room Air 05/31/19 12:00 69 12 129/81 (97) 98 05/31/19 12:00 69 05/31/19 11:00 53 21 107/85 (92) 98 05/31/19 10:00 60 17 131/72 (91) 97 05/31/19 09:00 40 14 131/72 (91) 98 05/31/19 08:22 43 123/52 05/31/19 08:19 43 123/52 05/31/19 08:00 45 05/31/19 08:00 Room Air 05/31/19 08:00 98.1 41 16 123/52 (75) 95 05/31/19 07:00 68 17 110/64 (79) 97 05/31/19 06:00 54 16 98/54 (69) 98 05/31/19 05:00 58 17 114/63 (80) 96 05/31/19 04:00 Room Air 05/31/19 04:00 98.8 67 17 130/54 (79) 95 05/31/19 03:30 47 05/31/19 03:12 65 05/31/19 03:00 32 16 125/67 (86) 95 05/31/19 02:30 29 05/31/19 02:00 56 17 141/55 (83) 96 05/31/19 01:30 34 05/31/19 01:00 48 15 97 05/31/19 00:27 61 05/31/19 00:00 98.8 47 14 120/49 (72) 97 05/31/19 00:00 Room Air 05/30/19 23:00 59 23 131/102 (112) 94 05/30/19 22:21 99.1 65 20 121/74 (90) 93 05/30/19 22:21 99.1 65 20 121/74 (90) 93 05/30/19 22:15 Room Air 05/30/19 22:10 99.7 81 19 139/60 98 Room Air 94 05/30/19 21:50 56 139/60 05/30/19 21:50 99.7 81 19 137/75 98 Room Air 94 05/30/19 19:41 99.1 77 19 119/59 98 Room Air 94 05/30/19 18:22 98.9 74 19 120/55 98 Room Air 05/30/19 17:30 99.2 74 18 144/106 99 Room Air 05/30/19 17:20 98.9 82 21 131/97 97 Room Air 05/30/19 16:22 99.0 84 21 153/107 97 Room Air 05/30/19 15:35 99.0 88 17 123/73 99 Room Air 94 05/30/19 15:20 98.9 82 21 05/30/19 14:22 102.0 82 21 124/75 95 Room Air 05/30/19 12:36 97.0 05/30/19 12:15 102.7 87 21 122/71 94 Room Air 05/30/19 12:15 87 21 Room Air 94 05/30/19 11:07 97.0 82 16 160/83 (108) 96 Room Air Intake and Output 05/31/19 06/01/19 19:00 07:00 Intake Total 585 ml 180 ml Balance 585 ml 180 ml Intake IV Total 465 ml Other 120 ml 180 ml # Voids 3 # Bowel Movements 3 4 Labs Test 05/30/19 11:30 05/30/19 12:30 05/31/19 04:00 05/31/19 11:55 White Blood Count 3.5 K/UL (4.8-10.8) 4.1 K/UL (4.8-10.8) Red Blood Count 4.71 M/UL (4.20-5.40) 3.58 M/UL (4.20-5.40) Hemoglobin 13.9 G/DL (12.0-16.0) 10.4 G/DL (12.0-16.0) Hematocrit 40.6 % (37.0-47.0) 30.7 % (37.0-47.0) Mean Corpuscular Volume 86 FL (80-99) 86 FL (80-99) Mean Corpuscular Hemoglobin 29.5 PG (27.0-31.0) 29.2 PG (27.0-31.0) Mean Corpuscular Hemoglobin Concent 34.3 G/DL (32.0-36.0) 34.0 G/DL (32.0-36.0) Red Cell Distribution Width 12.8 % (11.6-14.8) 13.2 % (11.6-14.8) Platelet Count 84 K/UL (150-450) 126 K/UL (150-450) Mean Platelet Volume 8.5 FL (6.5-10.1) 11.0 FL (6.5-10.1) Neutrophils (%) (Auto) % (45.0-75.0) 60.7 % (45.0-75.0) Lymphocytes (%) (Auto) % (20.0-45.0) 24.7 % (20.0-45.0) Monocytes (%) (Auto) % (1.0-10.0) 13.8 % (1.0-10.0) Eosinophils (%) (Auto) % (0.0-3.0) 0.4 % (0.0-3.0) Basophils (%) (Auto) % (0.0-2.0) 0.5 % (0.0-2.0) Differential Total Cells Counted 100 Neutrophils % (Manual) 55 % (45-75) Lymphocytes % (Manual) 37 % (20-45) Monocytes % (Manual) 6 % (1-10) Eosinophils % (Manual) 1 % (0-3) Basophils % (Manual) 0 % (0-2) Band Neutrophils 1 % (0-8) Platelet Estimate Decreased Platelet Morphology Normal Red Blood Cell Morphology Normal Prothrombin Time 9.6 SEC (9.30-11.50) Prothromb Time International Ratio 0.9 (0.9-1.1) Activated Partial Thromboplast Time 23 SEC (23-33) Lactic Acid Level 1.00 mmol/L (0.4-2.0) Troponin I 0.000 ng/mL (0.000-0.056) Urine Color Yellow Urine Appearance Slightly cloudy Urine pH 6 (4.5-8.0) Urine Specific Walker 1.015 (1.005-1.035) Urine Protein 1+ (NEGATIVE) Urine Glucose (UA) Negative (NEGATIVE) Urine Ketones 1+ (NEGATIVE) Urine Blood 5+ (NEGATIVE) Urine Nitrite Negative (NEGATIVE) Urine Bilirubin Negative (NEGATIVE) Urine Urobilinogen 8 MG/DL (0.0-1.0) Urine Leukocyte Esterase 1+ (NEGATIVE) Urine RBC 15-20 /HPF (0 - 2) Urine WBC 2-4 /HPF (0 - 2) Urine Squamous Epithelial Cells Occasional /LPF Urine Bacteria Few /HPF (NONE) Sodium Level 142 MMOL/L (136-145) 145 MMOL/L (136-145) Potassium Level 4.2 MMOL/L (3.5-5.1) 3.1 MMOL/L (3.5-5.1) Chloride Level 109 MMOL/L (98-107) 110 MMOL/L (98-107) Carbon Dioxide Level 25 MMOL/L (21-32) 23 MMOL/L (21-32) Anion Gap 8 mmol/L (5-15) 12 mmol/L (5-15) Blood Urea Nitrogen 18 mg/dL (7-18) 10 mg/dL (7-18) Creatinine 0.6 MG/DL (0.55-1.30) 0.5 MG/DL (0.55-1.30) Estimat Glomerular Filtration Rate > 60 mL/min (>60) > 60 mL/min (>60) Glucose Level 111 MG/DL (74-106) 86 MG/DL (74-106) Calcium Level 9.4 MG/DL (8.5-10.1) 8.4 MG/DL (8.5-10.1) Total Bilirubin 0.2 MG/DL (0.2-1.0) Aspartate Amino Transf (AST/SGOT) 35 U/L (15-37) Alanine Aminotransferase (ALT/SGPT) 21 U/L (12-78) Alkaline Phosphatase 46 U/L (46-116) Total Creatine Kinase 133 U/L (26-308) Creatine Kinase MB 1.2 NG/ML (0.0-3.6) Creatine Kinase MB Relative Index 0.9 Total Protein 6.6 G/DL (6.4-8.2) Albumin 2.7 G/DL (3.4-5.0) Globulin 3.9 g/dL Albumin/Globulin Ratio 0.7 (1.0-2.7) Valproic Acid (Depakene) Level 43 MCG/ML (50-100) Reticulocyte Count 0.6 % (0.5-2.0) Hemoglobin A1c 5.9 % (4.3-6.0) HIV (1&2) Antibody Rapid Negative (NEGATIVE) D-Dimer 4.29 mg/L FEU (0.00-0.49) Test 06/01/19 04:00 White Blood Count 4.8 K/UL (4.8-10.8) Red Blood Count 3.89 M/UL (4.20-5.40) Hemoglobin 11.5 G/DL (12.0-16.0) Hematocrit 33.5 % (37.0-47.0) Mean Corpuscular Volume 86 FL (80-99) Mean Corpuscular Hemoglobin 29.7 PG (27.0-31.0) Mean Corpuscular Hemoglobin Concent 34.5 G/DL (32.0-36.0) Red Cell Distribution Width 12.9 % (11.6-14.8) Platelet Count 124 K/UL (150-450) Mean Platelet Volume 8.9 FL (6.5-10.1) Neutrophils (%) (Auto) 61.6 % (45.0-75.0) Lymphocytes (%) (Auto) 27.0 % (20.0-45.0) Monocytes (%) (Auto) 10.6 % (1.0-10.0) Eosinophils (%) (Auto) 0.4 % (0.0-3.0) Basophils (%) (Auto) 0.4 % (0.0-2.0) Prothrombin Time 10.2 SEC (9.30-11.50) Prothromb Time International Ratio 1.0 (0.9-1.1) Sodium Level 144 MMOL/L (136-145) Potassium Level 3.5 MMOL/L (3.5-5.1) Chloride Level 110 MMOL/L (98-107) Carbon Dioxide Level 22 MMOL/L (21-32) Anion Gap 12 mmol/L (5-15) Blood Urea Nitrogen 8 mg/dL (7-18) Creatinine 0.5 MG/DL (0.55-1.30) Estimat Glomerular Filtration Rate > 60 mL/min (>60) Glucose Level 72 MG/DL (74-106) Calcium Level 9.2 MG/DL (8.5-10.1) Iron Level 23 ug/dL (50-175) Total Iron Binding Capacity 181 ug/dL (250-450) Percent Iron Saturation 13 % (15-50) Unsaturated Iron Binding 158 ug/dL (112-346) Ferritin 343 NG/ML (8-388) Troponin I 0.006 ng/mL (0.000-0.056) Thyroid Stimulating Hormone (TSH) 1.677 uiU/mL (0.358-3.740) Free Thyroxine 1.11 NG/DL (0.76-1.46) Height (Feet): 5 Height (Inches): 3.00 Weight (Pounds): 135 Objective Physical Exam Physical Exam Narrative General: NAD, A&O x 1, awake, alert, noncommunicative HEENT: NCAT, EOMi, dry mucous membranes CV: RRR, no murmurs, rubs, or gallops Pulm: CTAB, No wheezes, rhonchi, or rales, no accessory muscle usage or conversational dyspnea GI: Soft, nontender, nondistended, bowel sounds present, +PEG c/d/i Neuro: Limited due to patient communication/participation Ext: No lower extremity edema bilaterally Skin: no rashes lesions or ulcers Timothy Wong MD Jun 01, 2019 10:02
--- NOTE | 2019-06-01 10:56 | Infectious Diseases Prog Note ---
Assessment/Plan Assessment/Plan antibiotics : vancomycin iv, ceftriaxone, flagyl A 1. pneumonia COVID 19 test negative 2. fever 3. GI bleeding 4. diabetes mellitus 5. epilepsy 6. dementia 7. CVA 8. gram positive sepsis P 1. continue iv vancomycin, ceftriaxone, flagyl 2. repeat COVID 19 test 3. will follow up cultures 4. continue isolation Subjective ROS Limited/Unobtainable: Yes Allergies: Coded Allergies: IODINE (Verified Allergy, Unknown, 11/10/17) Objective Vital Signs Last 24 Hour Vital Signs Date Time Temp Pulse Resp B/P (MAP) Pulse Ox O2 Delivery O2 Flow Rate FiO2 06/01/19 10:00 83 15 135/61 (85) 97 06/01/19 09:00 98.9 72 19 133/50 (77) 100 06/01/19 08:18 84 129/112 06/01/19 08:00 86 12 129/112 (118) 96 06/01/19 08:00 Room Air 06/01/19 07:00 60 21 125/55 (78) 100 06/01/19 06:00 70 22 132/101 (111) 100 06/01/19 05:00 60 22 126/66 (86) 99 06/01/19 04:00 Room Air 06/01/19 04:00 98.2 82 15 118/80 (93) 97 06/01/19 04:00 53 06/01/19 03:00 60 23 134/49 (77) 96 06/01/19 02:00 50 17 126/54 (78) 100 06/01/19 01:00 56 20 112/53 (72) 99 06/01/19 00:00 55 16 103/86 (92) 97 06/01/19 00:00 Room Air 06/01/19 00:00 52 06/01/19 00:00 98.1 61 18 114/53 (73) 99 05/31/19 23:00 60 26 115/50 (71) 94 05/31/19 22:00 54 16 119/55 (76) 98 05/31/19 21:00 61 21 131/60 (83) 97 05/31/19 20:00 Room Air 05/31/19 20:00 98.5 61 20 120/74 (89) 96 05/31/19 20:00 71 05/31/19 19:00 66 25 121/61 (81) 96 05/31/19 18:00 99.8 63 17 158/42 (80) 98 05/31/19 17:00 56 24 146/56 (86) 98 05/31/19 16:00 Room Air 05/31/19 16:00 99.6 69 17 134/73 (93) 97 05/31/19 16:00 78 05/31/19 15:35 99.8 05/31/19 15:00 100.4 60 25 152/77 (102) 98 05/31/19 14:00 72 16 157/67 (97) 98 05/31/19 13:00 71 15 171/80 (110) 98 05/31/19 12:00 Room Air 05/31/19 12:00 69 12 129/81 (97) 98 05/31/19 12:00 69 05/31/19 11:00 53 21 107/85 (92) 98 Height (Feet): 5 Height (Inches): 3.00 Weight (Pounds): 148 Microbiology Date/Time Source Procedure Growth Status 05/30/19 11:35 Blood Blood Culture - Preliminary Gram Positive Cocci Resulted 05/30/19 11:30 Blood Blood Culture - Preliminary Resulted 05/30/19 12:30 Nasopharynx Coronavirus COVID-19 PCR (HOME) - Final Complete Laboratory Tests Test 05/31/19 11:55 06/01/19 04:00 D-Dimer 4.29 mg/L FEU (0.00-0.49) H White Blood Count 4.8 K/UL (4.8-10.8) Red Blood Count 3.89 M/UL (4.20-5.40) L Hemoglobin 11.5 G/DL (12.0-16.0) L Hematocrit 33.5 % (37.0-47.0) L Mean Corpuscular Volume 86 FL (80-99) Mean Corpuscular Hemoglobin 29.7 PG (27.0-31.0) Mean Corpuscular Hemoglobin Concent 34.5 G/DL (32.0-36.0) Red Cell Distribution Width 12.9 % (11.6-14.8) Platelet Count 124 K/UL (150-450) L Mean Platelet Volume 8.9 FL (6.5-10.1) Neutrophils (%) (Auto) 61.6 % (45.0-75.0) Lymphocytes (%) (Auto) 27.0 % (20.0-45.0) Monocytes (%) (Auto) 10.6 % (1.0-10.0) H Eosinophils (%) (Auto) 0.4 % (0.0-3.0) Basophils (%) (Auto) 0.4 % (0.0-2.0) Prothrombin Time 10.2 SEC (9.30-11.50) Prothromb Time International Ratio 1.0 (0.9-1.1) Sodium Level 144 MMOL/L (136-145) Potassium Level 3.5 MMOL/L (3.5-5.1) Chloride Level 110 MMOL/L (98-107) H Carbon Dioxide Level 22 MMOL/L (21-32) Anion Gap 12 mmol/L (5-15) Blood Urea Nitrogen 8 mg/dL (7-18) Creatinine 0.5 MG/DL (0.55-1.30) L Estimat Glomerular Filtration Rate > 60 mL/min (>60) Glucose Level 72 MG/DL (74-106) L Calcium Level 9.2 MG/DL (8.5-10.1) Iron Level 23 ug/dL (50-175) L Total Iron Binding Capacity 181 ug/dL (250-450) L Percent Iron Saturation 13 % (15-50) L Unsaturated Iron Binding 158 ug/dL (112-346) Ferritin 343 NG/ML (8-388) Troponin I 0.006 ng/mL (0.000-0.056) Thyroid Stimulating Hormone (TSH) 1.677 uiU/mL (0.358-3.740) Free Thyroxine 1.11 NG/DL (0.76-1.46) Hepatitis A IgM Antibody Pending Hepatitis B Surface Antigen Pending Hepatitis B Core IgM Antibody Pending Hepatitis C Antibody Pending Current Medications Medications (Trade) Dose Ordered Sig/Claritza Route PRN Reason Start Time Stop Time Status Last Admin Dose Admin Acetaminophen (Tylenol) 650 mg Q4H PRN GT T>100.4 05/30/19 17:00 06/29/19 13:29 05/31/19 15:05 Acetaminophen (Tylenol) 650 mg Q4H PRN GT Mild Pain (Pain Scale 1-3) 05/30/19 17:00 06/29/19 13:29 Amlodipine Besylate (Norvasc) 5 mg DAILY GT 05/31/19 09:00 06/30/19 08:59 Ceftriaxone Sodium 1 gm/ Sodium Chloride 55 ml @ 110 mls/hr DAILY IVPB 05/31/19 09:00 06/07/19 08:59 06/01/19 08:55 Dextrose (Dextrose 50%) 25 ml Q30M PRN IV Hypoglycemia 05/30/19 13:30 08/28/19 13:29 Dextrose (Dextrose 50%) 50 ml Q30M PRN IV Hypoglycemia 05/30/19 13:30 08/28/19 13:29 Escitalopram Oxalate (Lexapro) 10 mg DAILY GT 05/31/19 09:00 06/30/19 08:59 Iron Sucrose 100 mg/Sodium Chloride 60 ml @ 240 mls/hr BEDTIME IV 06/01/19 21:00 06/05/19 21:14 Magnesium Hydroxide (Mom) 30 ml DAILYPRN PRN ORAL Constipation 05/30/19 16:45 06/29/19 16:44 Metronidazole (Flagyl) 500 mg Q6HR GT 05/30/19 18:00 06/06/19 17:59 06/01/19 05:42 Pantoprazole (Protonix) 40 mg DAILY IVP 05/31/19 11:00 06/30/19 10:59 06/01/19 08:54 Polyethylene Glycol/ Electrolytes (Nulytely) 2,000 ml ONCE ONCE ORAL 06/01/19 18:00 06/01/19 18:01 Pravastatin Sodium (Pravachol) 80 mg BEDTIME GT 05/30/19 21:00 06/29/19 20:59 05/31/19 21:00 Risperidone (RisperDAL) 1 mg BID GT 05/30/19 18:00 07/14/19 17:59 05/31/19 17:24 Tramadol HCl (Ultram) 25 mg Q8H PRN GT Moderate Pain (Pain Scale 4-6) 05/30/19 17:30 06/06/19 17:29 Valproic Acid (Depakene) 250 mg Q12HR GT 05/30/19 21:00 06/29/19 20:59 05/31/19 21:00 Vancomycin HCl (Vanco rx to dose) 1 ea DAILY PRN MISC . 05/31/19 12:30 06/30/19 12:29 Vancomycin HCl 500 mg/Sodium Chloride 110 ml @ 110 mls/hr Q12HR@0300,1500 IVPB 05/31/19 15:00 06/05/19 14:59 06/01/19 03:21 Radha Dunham MD Jun 01, 2019 10:56
--- NOTE | 2019-06-01 11:06 | Pulmonology Progress Note ---
Assessment/Plan Assessment/Plan IMPRESSION: 1. Rectal bleeding. 2. Right lung pneumonia. 3. CVA. 4. care home resident. DISCUSSION: Admitted to the hospital. 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 Continue oxygen prn and pulmonary hygiene. Subjective Interval Events: None new Constitutional: Reports: no symptoms HEENT: Repors: no symptoms Respiratory: Reports: no symptoms Cardiovascular: Reports: no symptoms Gastrointestinal/Abdominal: Reports: no symptoms Allergies: Coded Allergies: IODINE (Verified Allergy, Unknown, 11/10/17) Objective Last 24 Hour Vital Signs Date Time Temp Pulse Resp B/P (MAP) Pulse Ox O2 Delivery O2 Flow Rate FiO2 06/01/19 10:00 83 15 135/61 (85) 97 06/01/19 09:00 98.9 72 19 133/50 (77) 100 06/01/19 08:18 84 129/112 06/01/19 08:00 86 12 129/112 (118) 96 06/01/19 08:00 Room Air 06/01/19 07:00 60 21 125/55 (78) 100 06/01/19 06:00 70 22 132/101 (111) 100 06/01/19 05:00 60 22 126/66 (86) 99 06/01/19 04:00 Room Air 06/01/19 04:00 98.2 82 15 118/80 (93) 97 06/01/19 04:00 53 06/01/19 03:00 60 23 134/49 (77) 96 06/01/19 02:00 50 17 126/54 (78) 100 06/01/19 01:00 56 20 112/53 (72) 99 06/01/19 00:00 55 16 103/86 (92) 97 06/01/19 00:00 Room Air 06/01/19 00:00 52 06/01/19 00:00 98.1 61 18 114/53 (73) 99 05/31/19 23:00 60 26 115/50 (71) 94 05/31/19 22:00 54 16 119/55 (76) 98 05/31/19 21:00 61 21 131/60 (83) 97 05/31/19 20:00 Room Air 05/31/19 20:00 98.5 61 20 120/74 (89) 96 05/31/19 20:00 71 05/31/19 19:00 66 25 121/61 (81) 96 05/31/19 18:00 99.8 63 17 158/42 (80) 98 05/31/19 17:00 56 24 146/56 (86) 98 05/31/19 16:00 Room Air 05/31/19 16:00 99.6 69 17 134/73 (93) 97 05/31/19 16:00 78 05/31/19 15:35 99.8 05/31/19 15:00 100.4 60 25 152/77 (102) 98 05/31/19 14:00 72 16 157/67 (97) 98 05/31/19 13:00 71 15 171/80 (110) 98 05/31/19 12:00 Room Air 05/31/19 12:00 69 12 129/81 (97) 98 05/31/19 12:00 69 Intake and Output 05/31/19 06/01/19 19:00 07:00 Intake Total 585 ml 180 ml Balance 585 ml 180 ml Intake IV Total 465 ml Other 120 ml 180 ml # Voids 3 # Bowel Movements 3 4 General Appearance: no acute distress HEENT: normocephalic Respiratory/Chest: chest wall non-tender Cardiovascular: normal peripheral pulses Abdomen: normal bowel sounds Microbiology Date/Time Source Procedure Growth Status 05/30/19 11:35 Blood Blood Culture - Preliminary Gram Positive Cocci Resulted 05/30/19 11:30 Blood Blood Culture - Preliminary Resulted 05/30/19 12:30 Nasopharynx Coronavirus COVID-19 PCR (HOME) - Final Complete Laboratory Tests 05/31/19 11:55: D-Dimer 4.29H 06/01/19 04:00: White Blood Count 4.8, Red Blood Count 3.89L, Hemoglobin 11.5L, Hematocrit 33.5L , Mean Corpuscular Volume 86, Mean Corpuscular Hemoglobin 29.7, Mean Corpuscular Hemoglobin Concent 34.5, Red Cell Distribution Width 12.9, Platelet Count 124L, Mean Platelet Volume 8.9, Neutrophils (%) (Auto) 61.6, Lymphocytes ( %) (Auto) 27.0, Monocytes (%) (Auto) 10.6H, Eosinophils (%) (Auto) 0.4, Basophils (%) (Auto) 0.4, Prothrombin Time 10.2, Prothromb Time International Ratio 1.0, Sodium Level 144, Potassium Level 3.5, Chloride Level 110H, Carbon Dioxide Level 22, Anion Gap 12, Blood Urea Nitrogen 8, Creatinine 0.5L, Estimat Glomerular Filtration Rate > 60, Glucose Level 72L, Calcium Level 9.2, Iron Level 23L, Total Iron Binding Capacity 181L, Percent Iron Saturation 13L, Unsaturated Iron Binding 158, Ferritin 343, Troponin I 0.006, Thyroid Stimulating Hormone (TSH) 1.677, Free Thyroxine 1.11, Hepatitis A IgM Antibody [ Pending], Hepatitis B Surface Antigen [Pending], Hepatitis B Core IgM Antibody [ Pending], Hepatitis C Antibody [Pending] Current Medications Medications (Trade) Dose Ordered Sig/Claritza Route PRN Reason Start Time Stop Time Status Last Admin Dose Admin Acetaminophen (Tylenol) 650 mg Q4H PRN GT T>100.4 05/30/19 17:00 06/29/19 13:29 05/31/19 15:05 Acetaminophen (Tylenol) 650 mg Q4H PRN GT Mild Pain (Pain Scale 1-3) 05/30/19 17:00 06/29/19 13:29 Amlodipine Besylate (Norvasc) 5 mg DAILY GT 05/31/19 09:00 06/30/19 08:59 Ceftriaxone Sodium 1 gm/ Sodium Chloride 55 ml @ 110 mls/hr DAILY IVPB 05/31/19 09:00 06/07/19 08:59 06/01/19 08:55 Dextrose (Dextrose 50%) 25 ml Q30M PRN IV Hypoglycemia 05/30/19 13:30 08/28/19 13:29 Dextrose (Dextrose 50%) 50 ml Q30M PRN IV Hypoglycemia 05/30/19 13:30 08/28/19 13:29 Escitalopram Oxalate (Lexapro) 10 mg DAILY GT 05/31/19 09:00 06/30/19 08:59 Iron Sucrose 100 mg/Sodium Chloride 60 ml @ 240 mls/hr BEDTIME IV 06/01/19 21:00 06/05/19 21:14 Magnesium Hydroxide (Mom) 30 ml DAILYPRN PRN ORAL Constipation 05/30/19 16:45 06/29/19 16:44 Metronidazole (Flagyl) 500 mg Q6HR GT 05/30/19 18:00 06/06/19 17:59 06/01/19 05:42 Pantoprazole (Protonix) 40 mg DAILY IVP 05/31/19 11:00 06/30/19 10:59 06/01/19 08:54 Polyethylene Glycol/ Electrolytes (Nulytely) 2,000 ml ONCE ONCE ORAL 06/01/19 18:00 06/01/19 18:01 Pravastatin Sodium (Pravachol) 80 mg BEDTIME GT 05/30/19 21:00 06/29/19 20:59 05/31/19 21:00 Risperidone (RisperDAL) 1 mg BID GT 05/30/19 18:00 07/14/19 17:59 05/31/19 17:24 Tramadol HCl (Ultram) 25 mg Q8H PRN GT Moderate Pain (Pain Scale 4-6) 05/30/19 17:30 06/06/19 17:29 Valproic Acid (Depakene) 250 mg Q12HR GT 05/30/19 21:00 06/29/19 20:59 05/31/19 21:00 Vancomycin HCl (Vanco rx to dose) 1 ea DAILY PRN MISC . 05/31/19 12:30 06/30/19 12:29 Vancomycin HCl 500 mg/Sodium Chloride 110 ml @ 110 mls/hr Q12HR@0300,1500 IVPB 05/31/19 15:00 06/05/19 14:59 06/01/19 03:21 Horace Landaverde MD Jun 01, 2019 11:06
--- NOTE | 2019-06-01 12:09 | Diagnostic Imaging Report ---
Indication: Abdominal pain Technique: Woods-scale and duplex images of the upper abdomen were obtained Comparison: none Findings: There is a gastrostomy tube present Gallbladder is incompletely distended. Tiny echogenic focus measuring 2 mm inherent to the anterior wall noted. Sonographic Manzano's sign could not be assessed, patient noncommunicative. Common bile duct measures 4 mm in diameter. No intrahepatic biliary ductal dilatation. Liver demonstrates normal echogenicity, no focal abnormality. Periportal fat is prominent. Portal vein and hepatic veins are patent. Pancreas is obscured by bowel gas. Spleen is unremarkable. Left kidney measures 9.9 cm in length. Right kidney measures 8.7 cm length. Both kidneys demonstrate normal echogenicity. There is no hydronephrosis. No focal abnormality . Abdominal aorta is partially obscured by bowel gas, visualized portions are non-aneurysmal . Impression: Tiny echogenic focus in the anterior gallbladder wall, could represent a small echogenic polyp, focal mural calcification, or less likely a small wall adherent calculus. Otherwise negative for gallstones or dilated bile ducts No other acute or significant abnormality Gastrostomy tube is in place. Note inability to visualize the pancreas and portions of the abdominal aorta
--- NOTE | 2019-06-01 14:03 | Cardiac Electrophysiology PN ---
Assessment/Plan Assessment/Plan 1. Bradycardia. Better off Coreg. Echocardiogram is pending. 2. Hypertension, on amlodipine 5 daily 3. Hyperlipidemia, 4. Rectal bleeding. Colonoscopy tomorrow by Dr. Doan 5. History of CVA. 6. Dysphagia, status post G-tube placement. 7. Underlying pneumonia. Ruled out for COVID-19. DAKSHA RN and Dr eReves Subjective Subjective In ICU. Still alek at times Objective Last 24 Hour Vital Signs Date Time Temp Pulse Resp B/P (MAP) Pulse Ox O2 Delivery O2 Flow Rate FiO2 06/01/19 13:00 98.6 81 27 116/55 (75) 99 06/01/19 12:00 Room Air 06/01/19 12:00 55 06/01/19 12:00 68 24 108/91 (97) 97 06/01/19 11:00 71 15 149/91 (110) 99 06/01/19 10:00 83 15 135/61 (85) 97 06/01/19 09:00 98.9 72 19 133/50 (77) 100 06/01/19 08:18 84 129/112 06/01/19 08:00 86 12 129/112 (118) 96 06/01/19 08:00 85 06/01/19 08:00 Room Air 06/01/19 07:00 60 21 125/55 (78) 100 06/01/19 06:00 70 22 132/101 (111) 100 06/01/19 05:00 60 22 126/66 (86) 99 06/01/19 04:00 Room Air 06/01/19 04:00 98.2 82 15 118/80 (93) 97 06/01/19 04:00 53 06/01/19 03:00 60 23 134/49 (77) 96 06/01/19 02:00 50 17 126/54 (78) 100 06/01/19 01:00 56 20 112/53 (72) 99 06/01/19 00:00 55 16 103/86 (92) 97 06/01/19 00:00 Room Air 06/01/19 00:00 52 06/01/19 00:00 98.1 61 18 114/53 (73) 99 05/31/19 23:00 60 26 115/50 (71) 94 05/31/19 22:00 54 16 119/55 (76) 98 05/31/19 21:00 61 21 131/60 (83) 97 05/31/19 20:00 Room Air 05/31/19 20:00 98.5 61 20 120/74 (89) 96 05/31/19 20:00 71 05/31/19 19:00 66 25 121/61 (81) 96 05/31/19 18:00 99.8 63 17 158/42 (80) 98 05/31/19 17:00 56 24 146/56 (86) 98 05/31/19 16:00 Room Air 05/31/19 16:00 99.6 69 17 134/73 (93) 97 05/31/19 16:00 78 05/31/19 15:35 99.8 05/31/19 15:00 100.4 60 25 152/77 (102) 98 05/31/19 14:00 72 16 157/67 (97) 98 Intake and Output 05/31/19 06/01/19 19:00 07:00 Intake Total 585 ml 180 ml Balance 585 ml 180 ml Intake IV Total 465 ml Other 120 ml 180 ml # Voids 3 # Bowel Movements 3 4 Laboratory Tests Test 06/01/19 04:00 White Blood Count 4.8 K/UL (4.8-10.8) Red Blood Count 3.89 M/UL (4.20-5.40) L Hemoglobin 11.5 G/DL (12.0-16.0) L Hematocrit 33.5 % (37.0-47.0) L Mean Corpuscular Volume 86 FL (80-99) Mean Corpuscular Hemoglobin 29.7 PG (27.0-31.0) Mean Corpuscular Hemoglobin Concent 34.5 G/DL (32.0-36.0) Red Cell Distribution Width 12.9 % (11.6-14.8) Platelet Count 124 K/UL (150-450) L Mean Platelet Volume 8.9 FL (6.5-10.1) Neutrophils (%) (Auto) 61.6 % (45.0-75.0) Lymphocytes (%) (Auto) 27.0 % (20.0-45.0) Monocytes (%) (Auto) 10.6 % (1.0-10.0) H Eosinophils (%) (Auto) 0.4 % (0.0-3.0) Basophils (%) (Auto) 0.4 % (0.0-2.0) Prothrombin Time 10.2 SEC (9.30-11.50) Prothromb Time International Ratio 1.0 (0.9-1.1) Sodium Level 144 MMOL/L (136-145) Potassium Level 3.5 MMOL/L (3.5-5.1) Chloride Level 110 MMOL/L (98-107) H Carbon Dioxide Level 22 MMOL/L (21-32) Anion Gap 12 mmol/L (5-15) Blood Urea Nitrogen 8 mg/dL (7-18) Creatinine 0.5 MG/DL (0.55-1.30) L Estimat Glomerular Filtration Rate > 60 mL/min (>60) Glucose Level 72 MG/DL (74-106) L Calcium Level 9.2 MG/DL (8.5-10.1) Iron Level 23 ug/dL (50-175) L Total Iron Binding Capacity 181 ug/dL (250-450) L Percent Iron Saturation 13 % (15-50) L Unsaturated Iron Binding 158 ug/dL (112-346) Ferritin 343 NG/ML (8-388) Troponin I 0.006 ng/mL (0.000-0.056) Thyroid Stimulating Hormone (TSH) 1.677 uiU/mL (0.358-3.740) Free Thyroxine 1.11 NG/DL (0.76-1.46) Hepatitis A IgM Antibody Pending Hepatitis B Surface Antigen Pending Hepatitis B Core IgM Antibody Pending Hepatitis C Antibody Pending Microbiology Date/Time Source Procedure Growth Status 05/30/19 11:35 Blood Blood Culture - Preliminary Gram Positive Cocci Resulted 05/30/19 11:30 Blood Blood Culture - Preliminary Resulted 05/30/19 12:30 Nasopharynx Coronavirus COVID-19 PCR (HOME) - Final Complete Objective HEAD AND NECK: Shows no JVD or carotid bruit. LUNGS: Coarse rhonchi. CARDIOVASCULAR: Shows regular S1 and S2. Bradycardic. ABDOMEN: Soft and status post G-tube. EXTREMITIES: No pitting edema. Telly Gottlieb MD Jun 01, 2019 14:03
--- NOTE | 2019-06-01 15:37 | Surgery Progress Note ---
Surgery Progress Note Subjective Additional Comments Ill-appearing. Labs noted. H&H stable. Discussed with GI. Bleeding per rectum plan for scope tomorrow. Cleared from surgery department. Objective Last 24 Hour Vital Signs Date Time Temp Pulse Resp B/P (MAP) Pulse Ox O2 Delivery O2 Flow Rate FiO2 06/01/19 15:00 68 17 120/63 (82) 100 06/01/19 14:00 68 18 134/51 (78) 99 06/01/19 13:00 98.6 81 27 116/55 (75) 99 06/01/19 12:00 Room Air 06/01/19 12:00 55 06/01/19 12:00 68 24 108/91 (97) 97 06/01/19 11:00 71 15 149/91 (110) 99 06/01/19 10:00 83 15 135/61 (85) 97 06/01/19 09:00 98.9 72 19 133/50 (77) 100 06/01/19 08:18 84 129/112 06/01/19 08:00 86 12 129/112 (118) 96 06/01/19 08:00 85 06/01/19 08:00 Room Air 06/01/19 07:00 60 21 125/55 (78) 100 06/01/19 06:00 70 22 132/101 (111) 100 06/01/19 05:00 60 22 126/66 (86) 99 06/01/19 04:00 Room Air 06/01/19 04:00 98.2 82 15 118/80 (93) 97 06/01/19 04:00 53 06/01/19 03:00 60 23 134/49 (77) 96 06/01/19 02:00 50 17 126/54 (78) 100 06/01/19 01:00 56 20 112/53 (72) 99 06/01/19 00:00 55 16 103/86 (92) 97 06/01/19 00:00 Room Air 06/01/19 00:00 52 06/01/19 00:00 98.1 61 18 114/53 (73) 99 05/31/19 23:00 60 26 115/50 (71) 94 05/31/19 22:00 54 16 119/55 (76) 98 05/31/19 21:00 61 21 131/60 (83) 97 05/31/19 20:00 Room Air 05/31/19 20:00 98.5 61 20 120/74 (89) 96 05/31/19 20:00 71 05/31/19 19:00 66 25 121/61 (81) 96 05/31/19 18:00 99.8 63 17 158/42 (80) 98 05/31/19 17:00 56 24 146/56 (86) 98 05/31/19 16:00 Room Air 05/31/19 16:00 99.6 69 17 134/73 (93) 97 05/31/19 16:00 78 I&O Intake and Output 05/31/19 06/01/19 19:00 07:00 Intake Total 585 ml 180 ml Balance 585 ml 180 ml Intake IV Total 465 ml Other 120 ml 180 ml # Voids 3 # Bowel Movements 3 4 Dressing: other Wound: other Drains: other Cardiovascular: RSR Respiratory: decreased breath sounds Abdomen: soft, non-tender, present bowel sounds Extremities: no cyanosis Laboratory Tests Test 06/01/19 04:00 White Blood Count 4.8 K/UL (4.8-10.8) Red Blood Count 3.89 M/UL (4.20-5.40) L Hemoglobin 11.5 G/DL (12.0-16.0) L Hematocrit 33.5 % (37.0-47.0) L Mean Corpuscular Volume 86 FL (80-99) Mean Corpuscular Hemoglobin 29.7 PG (27.0-31.0) Mean Corpuscular Hemoglobin Concent 34.5 G/DL (32.0-36.0) Red Cell Distribution Width 12.9 % (11.6-14.8) Platelet Count 124 K/UL (150-450) L Mean Platelet Volume 8.9 FL (6.5-10.1) Neutrophils (%) (Auto) 61.6 % (45.0-75.0) Lymphocytes (%) (Auto) 27.0 % (20.0-45.0) Monocytes (%) (Auto) 10.6 % (1.0-10.0) H Eosinophils (%) (Auto) 0.4 % (0.0-3.0) Basophils (%) (Auto) 0.4 % (0.0-2.0) Prothrombin Time 10.2 SEC (9.30-11.50) Prothromb Time International Ratio 1.0 (0.9-1.1) Sodium Level 144 MMOL/L (136-145) Potassium Level 3.5 MMOL/L (3.5-5.1) Chloride Level 110 MMOL/L (98-107) H Carbon Dioxide Level 22 MMOL/L (21-32) Anion Gap 12 mmol/L (5-15) Blood Urea Nitrogen 8 mg/dL (7-18) Creatinine 0.5 MG/DL (0.55-1.30) L Estimat Glomerular Filtration Rate > 60 mL/min (>60) Glucose Level 72 MG/DL (74-106) L Calcium Level 9.2 MG/DL (8.5-10.1) Iron Level 23 ug/dL (50-175) L Total Iron Binding Capacity 181 ug/dL (250-450) L Percent Iron Saturation 13 % (15-50) L Unsaturated Iron Binding 158 ug/dL (112-346) Ferritin 343 NG/ML (8-388) Troponin I 0.006 ng/mL (0.000-0.056) Thyroid Stimulating Hormone (TSH) 1.677 uiU/mL (0.358-3.740) Free Thyroxine 1.11 NG/DL (0.76-1.46) Hepatitis A IgM Antibody Pending Hepatitis B Surface Antigen Pending Hepatitis B Core IgM Antibody Pending Hepatitis C Antibody Pending Plan Problems: (1) Episode of generalized weakness (2) Encephalopathy (3) Constipation (4) Hypercalcemia (5) Dysphagia (6) Altered level of consciousness (7) Toxic encephalopathy (8) Thrombocytopenia (9) GIB (gastrointestinal bleeding) Assessment & Plan: Upper GI lavage with g tube no blood likely lower gi bleed diverticuli? appreciate GI input Plan for colonoscopy tomorrow. Discussed with GI. Cleared from surgical department trend h/h abd exam benign no acute surgical intervention planned will follow with recs thank you (10) Lower GI bleed Assessment & Plan: Findings: There is a gastrostomy tube in place. The bowel gas pattern is unremarkable. No masses or unusual calcifications. There are degenerative changes of the lumbar spine Impression: No acute process (11) Epilepsy (12) Acute febrile illness (13) CVA (cerebral vascular accident) (14) Suspected 2019 novel coronavirus infection (15) Diabetes mellitus (16) HTN (hypertension) Tomi Ordoñez Jun 01, 2019 15:37
[2019-06-01] MEDS ORDERED: Nulytely 4L ORAL ONE (18:00)
[2019-06-01] MEDS ORDERED: Iron Sucrose 100 MG in NS 55 ML IV SCH (21:00)
[2019-06-01] MEDS: Acetaminophen 650mg/20.3ml GT PRN (21:06)
[2019-06-02] VITALS (10 sets, daily range): BP systolic 132–168; BP diastolic 67–90
[2019-06-02] MEDS: metroNIDAZOLE 500mg tab GT SCH ×5 (00:29→23:27)
[2019-06-02] MEDS ORDERED: Acetaminophen 650mg/20.3ml GT PRN ×2 (01:00)
[2019-06-02] MEDS ORDERED: traMADol 50mg tab GT PRN (01:30)
[2019-06-02] MEDS ORDERED: Vancomycin 500 MG in NS 110 ML IVPB SCH (03:00)
[2019-06-02] MEDS: Vancomycin 1gm in D5W 275ml IVPB SCH ×2 (03:41→15:34)
[2019-06-02 05:59] LABS: ANION GAP 12 mmol/L (5-15); BLOOD UREA NITROGEN 9 mg/dL (7-18); CARBON DIOXIDE 23 MMOL/L (21-32); CHLORIDE 110 MMOL/L (98-107); CREATININE 0.6 MG/DL (0.55-1.30); SODIUM 145 MMOL/L (136-145)
[2019-06-02 06:15] LABS: BASOPHILS % (AUTO) 0.2 % (0.0-2.0); EOSINOPHILS % (AUTO) 0.1 % (0.0-3.0); HEMATOCRIT 31.7 % (37.0-47.0); HEMOGLOBIN 11.1 G/DL (12.0-16.0); LYMPHOCYTES % (AUTO) 20.8 % (20.0-45.0); MEAN CORPUSCULAR VOLUME 85 FL (80-99); MONOCYTES % (AUTO) 11.3 % (1.0-10.0); NEUTROPHILS % (AUTO) 67.5 % (45.0-75.0); PLATELET COUNT 139 K/UL (150-450); RED BLOOD COUNT 3.75 M/UL (4.20-5.40); RED CELL DISTRIBUTION WIDTH 12.3 % (11.6-14.8); WHITE BLOOD COUNT 5.3 K/UL (4.8-10.8)
[2019-06-02] MEDS ORDERED: Sodium Chloride for KCL Premix X 3hrs IV SCH (09:00)
[2019-06-02] MEDS ORDERED: Milk of Magnesia 30ml Ud ORAL PRN (09:00)
[2019-06-02] MEDS: cefTRIAXone 1 GM in NS 55 ML IVPB SCH (09:02)
[2019-06-02] MEDS: Valproic Acid 250mg/5ml Liquid GT SCH ×2 (09:14→20:08)
[2019-06-02] MEDS: Pantoprazole Inj IVP SCH (09:15)
--- NOTE | 2019-06-02 09:34 | Hematology/Onc Progress Note ---
Assessment/Plan Assessment/Plan Assessment and Recs: # Pancytopenia with Acute blood loss anemia, currently has been progressing --> likely related to underlying infection, covid rule out at this time --> currently is in the icu, hepatitis and hiv are pending --> us of the abdomen is pending, r/o hsm and cirrhosis --> smear of the periphery is pending --> abx as per id, started --> pressors prn --> 06/01 for colo by Olimpia # Acute GIB, with decrease in h/h --> Hgb stable on admission hgb 14-->11 --> no evidence of hemolyis is noted --> transfuse as needed, hgb goal >7 --> IVF hgb trend 10.4-->11.5 --> Protonix given in ED --> GI consulted, Dr Doan: GT lavage neg, transfuse plts, prep for possible colonoscopy, also per surg # Fever rule out covid 19 --> currently is on iso --> COVID pending --> KUB negative --> CXR ?right lung infiltrate --> per pulm # DMT2 --> accuchecks qac and qhs --> iss prn # HTN --> sbp goal is less than 140 --> as per cards # HLD --> holding ASA given acute GIB # H/o Epilepsy # Seizures # Dementia # Dysphagia s/p PEG --> on tfs # DVT PPx: SCDs given acute GIB Appreciate consultation and jose Rn Subjective HEENT: Denies: no symptoms, eye pain, blurred vision, tearing, double vision, ear pain, ear discharge, nose pain, nose congestion, throat pain, throat swelling, mouth pain, mouth swelling, other Cardiovascular: Denies: no symptoms, chest pain, edema, irregular heart rate, lightheadedness, palpitations, syncope, other Respiratory: Denies: no symptoms, cough, shortness of breath, SOB with excertion, SOB at rest, sputum, wheezing, other Gastrointestinal/Abdominal: Denies: no symptoms, abdomen distended, abdominal pain, black stools, tarry stools, blood in stool, constipated, diarrhea, difficulty swallowing, nausea, poor appetite, poor fluid intake, rectal bleeding , vomiting, other Genitourinary: Denies: no symptoms, burning, discharge, frequency, flank pain, hematuria, incontinence, pain, urgency, other Neurologic/Psychiatric: Denies: no symptoms, anxiety, depressed, emotional problems, headache, numbness, paresthesia, pre-existing deficit, seizure, tingling, tremors, weakness, other Endocrine: Denies: no symptoms, excessive sweating, flushing, intolerance to cold, intolerance to heat, increased hunger, increased thirst, increased urine, unexplained weight gain, unexplained weight loss, other Hematologic/Lymphatic: Denies: no symptoms, anemia, easy bleeding, easy bruising, adenopathy, other Allergies: Coded Allergies: IODINE (Verified Allergy, Unknown, 11/10/17) Subjective 05/31 is for colo tomorrow, labs reviewed, hgb stable 06/01 as per gi eval, for scope, no night sweats, dw rn Objective Objective Current Medications Medications (Trade) Dose Ordered Sig/Claritza Route PRN Reason Start Time Stop Time Status Last Admin Dose Admin Acetaminophen (Tylenol) 650 mg Q4H PRN GT Mild Pain (Pain Scale 1-3) 06/02/19 01:00 06/29/19 13:29 Acetaminophen (Tylenol) 650 mg Q4H PRN GT T>100.4 06/02/19 01:00 06/29/19 13:29 Amlodipine Besylate (Norvasc) 5 mg DAILY GT 06/02/19 09:00 06/30/19 08:59 06/02/19 09:15 Ceftriaxone Sodium 1 gm/ Sodium Chloride 55 ml @ 110 mls/hr DAILY IVPB 06/02/19 09:00 06/07/19 08:59 06/02/19 09:02 Dextrose (Dextrose 50%) 25 ml Q30M PRN IV Hypoglycemia 06/02/19 00:00 08/28/19 13:29 Dextrose (Dextrose 50%) 50 ml Q30M PRN IV Hypoglycemia 06/02/19 00:00 08/28/19 13:29 Escitalopram Oxalate (Lexapro) 10 mg DAILY GT 06/02/19 09:00 06/30/19 08:59 06/02/19 09:14 Iron Sucrose 100 mg/Sodium Chloride 60 ml @ 240 mls/hr BEDTIME IV 06/02/19 21:00 06/05/19 21:14 Magnesium Hydroxide (Mom) 30 ml DAILYPRN PRN ORAL Constipation 06/02/19 09:00 06/29/19 08:59 Metronidazole (Flagyl) 500 mg Q6HR GT 06/02/19 00:00 06/06/19 17:59 06/02/19 06:05 Pantoprazole (Protonix) 40 mg DAILY IVP 06/02/19 09:00 06/30/19 10:59 06/02/19 09:15 Potassium Chloride 100 ml @ 110 mls/hr Q1H IVPB 06/02/19 09:00 06/02/19 11:55 06/02/19 08:55 Pravastatin Sodium (Pravachol) 80 mg BEDTIME GT 06/02/19 21:00 06/29/19 20:59 Risperidone (RisperDAL) 1 mg BID GT 06/02/19 09:00 07/14/19 17:59 06/02/19 09:15 Sodium Chloride 300 ml @ 100 mls/hr Q3H IV 06/02/19 09:00 06/02/19 11:59 Tramadol HCl (Ultram) 25 mg Q8H PRN GT Moderate Pain (Pain Scale 4-6) 06/02/19 01:30 06/06/19 17:29 Valproic Acid (Depakene) 250 mg Q12HR GT 06/02/19 09:00 06/29/19 20:59 06/02/19 09:14 Vancomycin HCl (Vanco rx to dose) 1 ea DAILY PRN MISC . 06/02/19 09:00 06/30/19 12:29 Vancomycin HCl 1 gm/Dextrose 275 ml @ 183.708 mls/hr Q12H IVPB 06/02/19 04:00 06/07/19 03:59 06/02/19 03:41 Last 24 Hour Vital Signs Date Time Temp Pulse Resp B/P (MAP) Pulse Ox O2 Delivery O2 Flow Rate FiO2 06/02/19 09:15 104 146/68 06/02/19 07:45 60 06/02/19 04:00 Room Air 06/02/19 03:36 74 06/02/19 00:00 98.7 86 20 137/82 (100) 98 06/02/19 00:00 Room Air 06/01/19 23:25 92 06/01/19 23:00 100 20 156/123 (134) 97 06/01/19 21:36 100.5 06/01/19 21:00 74 17 146/74 (98) 100 06/01/19 20:00 79 06/01/19 20:00 101.0 69 22 151/55 (87) 99 06/01/19 20:00 Room Air 06/01/19 19:00 66 25 145/57 (86) 99 06/01/19 18:00 65 25 133/70 (91) 99 06/01/19 17:00 90 19 126/70 (88) 97 06/01/19 16:00 Room Air 06/01/19 16:00 98.7 96 16 110/78 (89) 96 06/01/19 16:00 91 06/01/19 15:00 68 17 120/63 (82) 100 06/01/19 14:00 68 18 134/51 (78) 99 06/01/19 13:00 98.6 81 27 116/55 (75) 99 06/01/19 12:00 Room Air 06/01/19 12:00 55 06/01/19 12:00 68 24 108/91 (97) 97 06/01/19 11:00 71 15 149/91 (110) 99 06/01/19 10:00 83 15 135/61 (85) 97 06/01/19 09:00 98.9 72 19 133/50 (77) 100 06/01/19 08:18 84 129/112 06/01/19 08:00 86 12 129/112 (118) 96 06/01/19 08:00 85 06/01/19 08:00 Room Air 06/01/19 07:00 60 21 125/55 (78) 100 06/01/19 06:00 70 22 132/101 (111) 100 06/01/19 05:00 60 22 126/66 (86) 99 06/01/19 04:00 Room Air 06/01/19 04:00 98.2 82 15 118/80 (93) 97 06/01/19 04:00 53 06/01/19 03:00 60 23 134/49 (77) 96 06/01/19 02:00 50 17 126/54 (78) 100 06/01/19 01:00 56 20 112/53 (72) 99 06/01/19 00:00 55 16 103/86 (92) 97 06/01/19 00:00 Room Air 06/01/19 00:00 52 06/01/19 00:00 98.1 61 18 114/53 (73) 99 05/31/19 23:00 60 26 115/50 (71) 94 05/31/19 22:00 54 16 119/55 (76) 98 05/31/19 21:00 61 21 131/60 (83) 97 05/31/19 20:00 Room Air 05/31/19 20:00 98.5 61 20 120/74 (89) 96 05/31/19 20:00 71 05/31/19 19:00 66 25 121/61 (81) 96 05/31/19 18:00 99.8 63 17 158/42 (80) 98 05/31/19 17:00 56 24 146/56 (86) 98 05/31/19 16:00 Room Air 05/31/19 16:00 99.6 69 17 134/73 (93) 97 05/31/19 16:00 78 05/31/19 15:00 100.4 60 25 152/77 (102) 98 05/31/19 14:00 72 16 157/67 (97) 98 05/31/19 13:00 71 15 171/80 (110) 98 05/31/19 12:00 Room Air 05/31/19 12:00 69 12 129/81 (97) 98 05/31/19 12:00 69 05/31/19 11:00 53 21 107/85 (92) 98 05/31/19 10:00 60 17 131/72 (91) 97 Intake and Output 06/01/19 06/02/19 19:00 07:00 Intake Total 565 ml 1075.0 ml Balance 565 ml 1075.0 ml Intake IV Total 165 ml 275.0 ml Other 400 ml 800 ml # Voids 2 4 # Bowel Movements 1 2 Labs Test 05/30/19 11:30 05/30/19 12:08 05/30/19 12:30 05/31/19 04:00 White Blood Count 3.5 K/UL (4.8-10.8) 4.1 K/UL (4.8-10.8) Red Blood Count 4.71 M/UL (4.20-5.40) 3.58 M/UL (4.20-5.40) Hemoglobin 13.9 G/DL (12.0-16.0) 10.4 G/DL (12.0-16.0) Hematocrit 40.6 % (37.0-47.0) 30.7 % (37.0-47.0) Mean Corpuscular Volume 86 FL (80-99) 86 FL (80-99) Mean Corpuscular Hemoglobin 29.5 PG (27.0-31.0) 29.2 PG (27.0-31.0) Mean Corpuscular Hemoglobin Concent 34.3 G/DL (32.0-36.0) 34.0 G/DL (32.0-36.0) Red Cell Distribution Width 12.8 % (11.6-14.8) 13.2 % (11.6-14.8) Platelet Count 84 K/UL (150-450) 126 K/UL (150-450) Mean Platelet Volume 8.5 FL (6.5-10.1) 11.0 FL (6.5-10.1) Neutrophils (%) (Auto) % (45.0-75.0) 60.7 % (45.0-75.0) Lymphocytes (%) (Auto) % (20.0-45.0) 24.7 % (20.0-45.0) Monocytes (%) (Auto) % (1.0-10.0) 13.8 % (1.0-10.0) Eosinophils (%) (Auto) % (0.0-3.0) 0.4 % (0.0-3.0) Basophils (%) (Auto) % (0.0-2.0) 0.5 % (0.0-2.0) Differential Total Cells Counted 100 Neutrophils % (Manual) 55 % (45-75) Lymphocytes % (Manual) 37 % (20-45) Monocytes % (Manual) 6 % (1-10) Eosinophils % (Manual) 1 % (0-3) Basophils % (Manual) 0 % (0-2) Band Neutrophils 1 % (0-8) Platelet Estimate Decreased Platelet Morphology Normal Red Blood Cell Morphology Normal Prothrombin Time 9.6 SEC (9.30-11.50) Prothromb Time International Ratio 0.9 (0.9-1.1) Activated Partial Thromboplast Time 23 SEC (23-33) Lactic Acid Level 1.00 mmol/L (0.4-2.0) Troponin I 0.000 ng/mL (0.000-0.056) Lab Scanned Report Blood Bank/Transfusion Urine Color Yellow Urine Appearance Slightly cloudy Urine pH 6 (4.5-8.0) Urine Specific [place] 1.015 (1.005-1.035) Urine Protein 1+ (NEGATIVE) Urine Glucose (UA) Negative (NEGATIVE) Urine Ketones 1+ (NEGATIVE) Urine Blood 5+ (NEGATIVE) Urine Nitrite Negative (NEGATIVE) Urine Bilirubin Negative (NEGATIVE) Urine Urobilinogen 8 MG/DL (0.0-1.0) Urine Leukocyte Esterase 1+ (NEGATIVE) Urine RBC 15-20 /HPF (0 - 2) Urine WBC 2-4 /HPF (0 - 2) Urine Squamous Epithelial Cells Occasional /LPF Urine Bacteria Few /HPF (NONE) Sodium Level 142 MMOL/L (136-145) 145 MMOL/L (136-145) Potassium Level 4.2 MMOL/L (3.5-5.1) 3.1 MMOL/L (3.5-5.1) Chloride Level 109 MMOL/L (98-107) 110 MMOL/L (98-107) Carbon Dioxide Level 25 MMOL/L (21-32) 23 MMOL/L (21-32) Anion Gap 8 mmol/L (5-15) 12 mmol/L (5-15) Blood Urea Nitrogen 18 mg/dL (7-18) 10 mg/dL (7-18) Creatinine 0.6 MG/DL (0.55-1.30) 0.5 MG/DL (0.55-1.30) Estimat Glomerular Filtration Rate > 60 mL/min (>60) > 60 mL/min (>60) Glucose Level 111 MG/DL (74-106) 86 MG/DL (74-106) Calcium Level 9.4 MG/DL (8.5-10.1) 8.4 MG/DL (8.5-10.1) Total Bilirubin 0.2 MG/DL (0.2-1.0) Aspartate Amino Transf (AST/SGOT) 35 U/L (15-37) Alanine Aminotransferase (ALT/SGPT) 21 U/L (12-78) Alkaline Phosphatase 46 U/L (46-116) Total Creatine Kinase 133 U/L (26-308) Creatine Kinase MB 1.2 NG/ML (0.0-3.6) Creatine Kinase MB Relative Index 0.9 Total Protein 6.6 G/DL (6.4-8.2) Albumin 2.7 G/DL (3.4-5.0) Globulin 3.9 g/dL Albumin/Globulin Ratio 0.7 (1.0-2.7) Valproic Acid (Depakene) Level 43 MCG/ML (50-100) CBC Comment Pathologist review Reticulocyte Count 0.6 % (0.5-2.0) Hemoglobin A1c 5.9 % (4.3-6.0) HIV (1&2) Antibody Rapid Negative (NEGATIVE) Test 05/31/19 11:55 06/01/19 04:00 06/02/19 02:00 06/02/19 04:00 D-Dimer 4.29 mg/L FEU (0.00-0.49) White Blood Count 4.8 K/UL (4.8-10.8) 5.3 K/UL (4.8-10.8) Red Blood Count 3.89 M/UL (4.20-5.40) 3.75 M/UL (4.20-5.40) Hemoglobin 11.5 G/DL (12.0-16.0) 11.1 G/DL (12.0-16.0) Hematocrit 33.5 % (37.0-47.0) 31.7 % (37.0-47.0) Mean Corpuscular Volume 86 FL (80-99) 85 FL (80-99) Mean Corpuscular Hemoglobin 29.7 PG (27.0-31.0) 29.5 PG (27.0-31.0) Mean Corpuscular Hemoglobin Concent 34.5 G/DL (32.0-36.0) 34.9 G/DL (32.0-36.0) Red Cell Distribution Width 12.9 % (11.6-14.8) 12.3 % (11.6-14.8) Platelet Count 124 K/UL (150-450) 139 K/UL (150-450) Mean Platelet Volume 8.9 FL (6.5-10.1) 9.1 FL (6.5-10.1) Neutrophils (%) (Auto) 61.6 % (45.0-75.0) 67.5 % (45.0-75.0) Lymphocytes (%) (Auto) 27.0 % (20.0-45.0) 20.8 % (20.0-45.0) Monocytes (%) (Auto) 10.6 % (1.0-10.0) 11.3 % (1.0-10.0) Eosinophils (%) (Auto) 0.4 % (0.0-3.0) 0.1 % (0.0-3.0) Basophils (%) (Auto) 0.4 % (0.0-2.0) 0.2 % (0.0-2.0) Prothrombin Time 10.2 SEC (9.30-11.50) Prothromb Time International Ratio 1.0 (0.9-1.1) Sodium Level 144 MMOL/L (136-145) 145 MMOL/L (136-145) Potassium Level 3.5 MMOL/L (3.5-5.1) 3.0 MMOL/L (3.5-5.1) Chloride Level 110 MMOL/L (98-107) 110 MMOL/L (98-107) Carbon Dioxide Level 22 MMOL/L (21-32) 23 MMOL/L (21-32) Anion Gap 12 mmol/L (5-15) 12 mmol/L (5-15) Blood Urea Nitrogen 8 mg/dL (7-18) 9 mg/dL (7-18) Creatinine 0.5 MG/DL (0.55-1.30) 0.6 MG/DL (0.55-1.30) Estimat Glomerular Filtration Rate > 60 mL/min (>60) > 60 mL/min (>60) Glucose Level 72 MG/DL (74-106) 111 MG/DL (74-106) Calcium Level 9.2 MG/DL (8.5-10.1) 9.0 MG/DL (8.5-10.1) Iron Level 23 ug/dL (50-175) Total Iron Binding Capacity 181 ug/dL (250-450) Percent Iron Saturation 13 % (15-50) Unsaturated Iron Binding 158 ug/dL (112-346) Ferritin 343 NG/ML (8-388) Troponin I 0.006 ng/mL (0.000-0.056) Thyroid Stimulating Hormone (TSH) 1.677 uiU/mL (0.358-3.740) Free Thyroxine 1.11 NG/DL (0.76-1.46) Hepatitis A IgM Antibody Negative (Negative) Hepatitis B Surface Antigen Negative (Negative) Hepatitis B Core IgM Antibody Negative (Negative) Hepatitis C Antibody <0.1 s/co ratio Vancomycin Level Trough 8.7 ug/mL (5.0-12.0) Height (Feet): 5 Height (Inches): 3.00 Weight (Pounds): 148 Objective Physical Exam Physical Exam Narrative General: NAD, A&O x 1, awake, alert, noncommunicative HEENT: NCAT, EOMi, dry mucous membranes CV: RRR, no murmurs, rubs, or gallops Pulm: CTAB, No wheezes, rhonchi, or rales, no accessory muscle usage or conversational dyspnea GI: Soft, nontender, nondistended, bowel sounds present, +PEG c/d/i Neuro: Limited due to patient communication/participation Ext: No lower extremity edema bilaterally Skin: no rashes lesions or ulcers Timothy Wong MD Jun 02, 2019 09:34
[2019-06-02] MEDS ORDERED: Propofol 200mg/20ml IV ONE (10:00)
[2019-06-02] MEDS ORDERED: Lidocaine 1% MPF 10mg/ml 5ml ONE (10:00)
--- NOTE | 2019-06-02 10:27 | Pulmonology Progress Note ---
Assessment/Plan Assessment/Plan IMPRESSION: 1. Rectal bleeding. 2. Right lung pneumonia. 3. CVA. 4. jail resident. 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 Abx per ID Continue oxygen prn and pulmonary hygiene. Subjective Interval Events: None new Constitutional: Reports: no symptoms HEENT: Repors: no symptoms Respiratory: Reports: no symptoms Cardiovascular: Reports: no symptoms Gastrointestinal/Abdominal: Reports: no symptoms Genitourinary: Reports: no symptoms Allergies: Coded Allergies: IODINE (Verified Allergy, Unknown, 11/10/17) Objective Last 24 Hour Vital Signs Date Time Temp Pulse Resp B/P (MAP) Pulse Ox O2 Delivery O2 Flow Rate FiO2 06/02/19 09:15 104 146/68 06/02/19 07:45 60 06/02/19 04:00 Room Air 06/02/19 03:36 74 06/02/19 00:00 98.7 86 20 137/82 (100) 98 06/02/19 00:00 Room Air 06/01/19 23:25 92 06/01/19 23:00 100 20 156/123 (134) 97 06/01/19 21:36 100.5 06/01/19 21:00 74 17 146/74 (98) 100 06/01/19 20:00 79 06/01/19 20:00 101.0 69 22 151/55 (87) 99 06/01/19 20:00 Room Air 06/01/19 19:00 66 25 145/57 (86) 99 06/01/19 18:00 65 25 133/70 (91) 99 06/01/19 17:00 90 19 126/70 (88) 97 06/01/19 16:00 Room Air 06/01/19 16:00 98.7 96 16 110/78 (89) 96 06/01/19 16:00 91 06/01/19 15:00 68 17 120/63 (82) 100 06/01/19 14:00 68 18 134/51 (78) 99 06/01/19 13:00 98.6 81 27 116/55 (75) 99 06/01/19 12:00 Room Air 06/01/19 12:00 55 06/01/19 12:00 68 24 108/91 (97) 97 06/01/19 11:00 71 15 149/91 (110) 99 Intake and Output 06/01/19 06/02/19 19:00 07:00 Intake Total 565 ml 1075.0 ml Balance 565 ml 1075.0 ml Intake IV Total 165 ml 275.0 ml Other 400 ml 800 ml # Voids 2 4 # Bowel Movements 1 2 General Appearance: no acute distress HEENT: normocephalic Respiratory/Chest: chest wall non-tender Cardiovascular: normal peripheral pulses Abdomen: normal bowel sounds Microbiology Date/Time Source Procedure Growth Status 05/30/19 11:35 Blood Blood Culture - Final Staphylococcus Epidermidis Diphtheroids Complete 05/30/19 11:30 Blood Blood Culture - Final Staphylococcus Epidermidis Diphtheroids Complete 05/30/19 12:30 Nasopharynx Coronavirus COVID-19 PCR (HOME) - Final Complete Laboratory Tests 06/02/19 02:00: Vancomycin Level Trough 8.7 06/02/19 04:00: White Blood Count 5.3, Red Blood Count 3.75L, Hemoglobin 11.1L, Hematocrit 31.7L , Mean Corpuscular Volume 85, Mean Corpuscular Hemoglobin 29.5, Mean Corpuscular Hemoglobin Concent 34.9, Red Cell Distribution Width 12.3, Platelet Count 139L, Mean Platelet Volume 9.1, Neutrophils (%) (Auto) 67.5, Lymphocytes ( %) (Auto) 20.8, Monocytes (%) (Auto) 11.3H, Eosinophils (%) (Auto) 0.1, Basophils (%) (Auto) 0.2, Sodium Level 145, Potassium Level 3.0L, Chloride Level 110H, Carbon Dioxide Level 23, Anion Gap 12, Blood Urea Nitrogen 9, Creatinine 0.6, Estimat Glomerular Filtration Rate > 60, Glucose Level 111H, Calcium Level 9.0 Current Medications Medications (Trade) Dose Ordered Sig/Claritza Route PRN Reason Start Time Stop Time Status Last Admin Dose Admin Acetaminophen (Tylenol) 650 mg Q4H PRN GT Mild Pain (Pain Scale 1-3) 06/02/19 01:00 06/29/19 13:29 Acetaminophen (Tylenol) 650 mg Q4H PRN GT T>100.4 06/02/19 01:00 06/29/19 13:29 Amlodipine Besylate (Norvasc) 5 mg DAILY GT 06/02/19 09:00 06/30/19 08:59 06/02/19 09:15 Ceftriaxone Sodium 1 gm/ Sodium Chloride 55 ml @ 110 mls/hr DAILY IVPB 06/02/19 09:00 06/07/19 08:59 06/02/19 09:02 Dextrose (Dextrose 50%) 25 ml Q30M PRN IV Hypoglycemia 06/02/19 00:00 08/28/19 13:29 Dextrose (Dextrose 50%) 50 ml Q30M PRN IV Hypoglycemia 06/02/19 00:00 08/28/19 13:29 Escitalopram Oxalate (Lexapro) 10 mg DAILY GT 06/02/19 09:00 06/30/19 08:59 06/02/19 09:14 Iron Sucrose 100 mg/Sodium Chloride 60 ml @ 240 mls/hr BEDTIME IV 06/02/19 21:00 06/05/19 21:14 Magnesium Hydroxide (Mom) 30 ml DAILYPRN PRN ORAL Constipation 06/02/19 09:00 06/29/19 08:59 Metronidazole (Flagyl) 500 mg Q6HR GT 06/02/19 00:00 06/06/19 17:59 06/02/19 06:05 Pantoprazole (Protonix) 40 mg DAILY IVP 06/02/19 09:00 06/30/19 10:59 06/02/19 09:15 Potassium Chloride 100 ml @ 110 mls/hr Q1H IVPB 06/02/19 09:00 06/02/19 11:55 06/02/19 08:55 Pravastatin Sodium (Pravachol) 80 mg BEDTIME GT 06/02/19 21:00 06/29/19 20:59 Risperidone (RisperDAL) 1 mg BID GT 06/02/19 09:00 07/14/19 17:59 06/02/19 09:15 Sodium Chloride 300 ml @ 100 mls/hr Q3H IV 06/02/19 09:00 06/02/19 11:59 Tramadol HCl (Ultram) 25 mg Q8H PRN GT Moderate Pain (Pain Scale 4-6) 06/02/19 01:30 06/06/19 17:29 Valproic Acid (Depakene) 250 mg Q12HR GT 06/02/19 09:00 06/29/19 20:59 06/02/19 09:14 Vancomycin HCl (Vanco rx to dose) 1 ea DAILY PRN MISC . 06/02/19 09:00 06/30/19 12:29 Vancomycin HCl 1 gm/Dextrose 275 ml @ 183.708 mls/hr Q12H IVPB 06/02/19 04:00 06/07/19 03:59 06/02/19 03:41 Horace Landaverde MD Jun 02, 2019 10:27
[2019-06-02] MEDS ORDERED: NS 500ML IVPB ONE (10:35)
--- NOTE | 2019-06-02 10:55 | Anethesia Preoperative Eval ---
Anesthesia Pre-op PMH/ROS General Date of Evaluation: Jun 02, 2019 Time of Evaluation: 10:09 Anesthesiologist: Sahil ASA Score: ASA 4 Mallampati Score Class I : Soft palate, uvula, fauces, pillars visible Class II: Soft palate, uvula, fauces visible Class III: Soft palate, base of uvula visible Class IV: Only hard plate visible Mallampati Classification: Class III Surgeon: Olimpia Diagnosis: GI Bleed Surgical Procedure: Colonoscopy Anesthesia History: none Family History: no anesthesia problems Allergies: Coded Allergies: IODINE (Verified Allergy, Unknown, 11/10/17) Medications: see eMAR Patient NPO?: Yes Past Medical History Cardiovascular: Reports: HTN Gastrointestinal/Genitourinary: Reports: GERD, other - GI Bleed Neurologic/Psychiatric: Reports: dementia, CVA, TIA Hematology/Immune: Reports: anemia Musculoskeletal/Integumentary: Reports: other - Contractures Anesthesia Pre-op Phys. Exam Physician Exam Last Vital Signs Date Time Temp Pulse Resp B/P (MAP) Pulse Ox O2 Delivery O2 Flow Rate FiO2 06/02/19 09:15 104 146/68 06/02/19 04:00 Room Air 06/02/19 00:00 98.7 20 98 05/30/19 22:10 94 Constitutional: NAD Neurologic: CN 2-12 intact Cardiovascular: RRR Respiratory: CTA Gastrointestinal: S/NT/ND Airway Exam Mallampati Score: Class III MO: limited ROM: limited Teeth: missing, intact Anesthesia Pre-op A/P Labs Hematology Test 06/02/19 04:00 White Blood Count 5.3 K/UL (4.8-10.8) Red Blood Count 3.75 M/UL (4.20-5.40) L Hemoglobin 11.1 G/DL (12.0-16.0) L Hematocrit 31.7 % (37.0-47.0) L Mean Corpuscular Volume 85 FL (80-99) Mean Corpuscular Hemoglobin 29.5 PG (27.0-31.0) Mean Corpuscular Hemoglobin Concent 34.9 G/DL (32.0-36.0) Red Cell Distribution Width 12.3 % (11.6-14.8) Platelet Count 139 K/UL (150-450) L Mean Platelet Volume 9.1 FL (6.5-10.1) Neutrophils (%) (Auto) 67.5 % (45.0-75.0) Lymphocytes (%) (Auto) 20.8 % (20.0-45.0) Monocytes (%) (Auto) 11.3 % (1.0-10.0) H Eosinophils (%) (Auto) 0.1 % (0.0-3.0) Basophils (%) (Auto) 0.2 % (0.0-2.0) Chemistry Test 06/02/19 04:00 Sodium Level 145 MMOL/L (136-145) Potassium Level 3.0 MMOL/L (3.5-5.1) L Chloride Level 110 MMOL/L (98-107) H Carbon Dioxide Level 23 MMOL/L (21-32) Anion Gap 12 mmol/L (5-15) Blood Urea Nitrogen 9 mg/dL (7-18) Creatinine 0.6 MG/DL (0.55-1.30) Estimat Glomerular Filtration Rate > 60 mL/min (>60) Glucose Level 111 MG/DL (74-106) H Calcium Level 9.0 MG/DL (8.5-10.1) Risk Assessment & Plan Assessment: ASA 4 Plan: TIVA Status Change Before Surgery: No Raheem Baxter MD Jun 02, 2019 10:55
--- NOTE | 2019-06-02 10:56 | Immediate Post-Op Evaluation ---
Immediate Post-Op Evalulation Immediate Post-Op Evalulation Procedure: Colonoscopy Date of Evaluation: Jun 02, 2019 Blood Products: 0 Estimated Blood Loss: 1 Urinary Output: 0 Pain Score (1-10): 2 Nausea: No Vomiting: No Complications 0 Patient Status: awake, reacts, patent, none Hydration Status: adequate Raheem Baxter MD Jun 02, 2019 10:56
--- NOTE | 2019-06-02 10:57 | 48 Hour Post Anesthesia Eval ---
Post Anesthesia Evaluation Procedure: Colonoscopy Date of Evaluation: Jun 02, 2019 Airway: patent Nausea: No Vomiting: No Pain Intensity: 1 Hydration Status: adequate Cardiopulmonary Status: Stable Mental Status/LOC: patient returned to baseline Follow-up Care/Observations: 0 Post-Anesthesia Complications: 0 Follow-up care needed: N/A Raheem Baxter MD Jun 02, 2019 10:57
--- NOTE | 2019-06-02 11:51 | Endoscopy Procedure Note ---
Endoscopy Procedure Note General Indication for Procedure: gib Procedures Performed: colonoscopy Operative Findings/Diagnosis: diverticulosis Specimen: yes Pt Tolerated Procedure Well: Yes Estimated Blood Loss: none Anesthesia Anesthesiologist: basilio Anesthesia: MAC Inserted Devices Implant(s) used?: No Quality Quality of Bowel Preparation: Good Did scope reach the cecum?: Yes Was there any complications?: No GI Core Measures 50 yrs or older w/o bx or poly: Not Applicable 10yrs. F/U recommended: Not Applicable Thang Doan MD Jun 02, 2019 11:51
--- NOTE | 2019-06-02 13:09 | General Progress Note ---
Assessment/Plan Status: stable Assessment/Plan: 74-year-old female from [facility] w/PMH CVA, dysphasia s/p PEG, dementia, epilepsy, ?DMT2 who presents with bright red blood per rectum, GIB. Patient came facility with multiple COVID positive patients, patient is pending COVID rule out. #Acute blood loss anemia #Acute GIB -continue inpatient level of care -cont. to monitor hgb -Cont Protonix -Colonoscopy 06/01 without active bleed -Surgery following -Cardio following #COVID exposure, PCR negative #Fever -fever 102.7 rectal in ED -COVID pending -KUB negative -CXR ?right lung infiltrate -BCx pending -Cont current abx -ID and Pulm consulted #?DMT2 -per chart review pt w/h/o DM -no medications seen in APR from [facility] #HTN #HLD -holding ASA given acute GIB -cont. home coreg w/hold parameters #H/o Epilepsy #Seizures #?Dementia -no seizure activity reported by [facility] -cont. valproic acid -check valproic acid level -cont. home risperdol -Neurology consulted #Dysphagia s/p PEG -TF per nutrition DVT PPx: SCDs given acute GIB Time spent on encounter: 35 mins, >50% on counseling, coordination of care. Time of note doesn't reflect time of encounter. Subjective Date patient seen: Jun 02, 2019 Time patient seen: 13:07 ROS Limited/Unobtainable: Yes Allergies: Coded Allergies: IODINE (Verified Allergy, Unknown, 11/10/17) Subjective Follow up for acute blood loss anemia No acute bleeding overnight, Hb stable Colonoscopy today without acute bleed Objective Last 24 Hour Vital Signs Date Time Temp Pulse Resp B/P (MAP) Pulse Ox O2 Delivery O2 Flow Rate FiO2 06/02/19 11:45 74 20 139/69 96 Room Air 06/02/19 11:30 75 20 168/90 99 Simple Mask 4 06/02/19 11:20 77 20 153/67 99 Simple Mask 4 06/02/19 11:15 75 20 149/70 99 Simple Mask 8 06/02/19 11:10 98.4 82 20 144/73 98 Simple Mask 8 06/02/19 09:15 104 146/68 06/02/19 07:45 60 06/02/19 04:00 Room Air 06/02/19 03:36 74 06/02/19 00:00 98.7 86 20 137/82 (100) 98 06/02/19 00:00 Room Air 06/01/19 23:25 92 06/01/19 23:00 100 20 156/123 (134) 97 06/01/19 21:36 100.5 06/01/19 21:00 74 17 146/74 (98) 100 06/01/19 20:00 79 06/01/19 20:00 101.0 69 22 151/55 (87) 99 06/01/19 20:00 Room Air 06/01/19 19:00 66 25 145/57 (86) 99 06/01/19 18:00 65 25 133/70 (91) 99 06/01/19 17:00 90 19 126/70 (88) 97 06/01/19 16:00 Room Air 06/01/19 16:00 98.7 96 16 110/78 (89) 96 06/01/19 16:00 91 06/01/19 15:00 68 17 120/63 (82) 100 06/01/19 14:00 68 18 134/51 (78) 99 Intake and Output 06/01/19 06/02/19 19:00 07:00 Intake Total 565 ml 1075.0 ml Balance 565 ml 1075.0 ml Intake IV Total 165 ml 275.0 ml Other 400 ml 800 ml # Voids 2 4 # Bowel Movements 1 2 Laboratory Tests 06/02/19 02:00: Vancomycin Level Trough 8.7 06/02/19 04:00: White Blood Count 5.3, Red Blood Count 3.75L, Hemoglobin 11.1L, Hematocrit 31.7L , Mean Corpuscular Volume 85, Mean Corpuscular Hemoglobin 29.5, Mean Corpuscular Hemoglobin Concent 34.9, Red Cell Distribution Width 12.3, Platelet Count 139L, Mean Platelet Volume 9.1, Neutrophils (%) (Auto) 67.5, Lymphocytes ( %) (Auto) 20.8, Monocytes (%) (Auto) 11.3H, Eosinophils (%) (Auto) 0.1, Basophils (%) (Auto) 0.2, Sodium Level 145, Potassium Level 3.0L, Chloride Level 110H, Carbon Dioxide Level 23, Anion Gap 12, Blood Urea Nitrogen 9, Creatinine 0.6, Estimat Glomerular Filtration Rate > 60, Glucose Level 111H, Calcium Level 9.0 Height (Feet): 5 Height (Inches): 3.00 Weight (Pounds): 148 General Appearance: alert, confused Neck: supple, normal inspection Cardiovascular: normal rate, regular rhythm Pierce Baptiste MD Jun 02, 2019 13:09
--- NOTE | 2019-06-02 14:35 | Cardiac Electrophysiology PN ---
Assessment/Plan Assessment/Plan 1. Bradycardia. Better off Coreg. Echocardiogram is pending. 2. Hypertension, on amlodipine 5 daily 3. Hyperlipidemia, 4. Rectal bleeding. S/P Colonoscopy today by Dr. Daon that showed diverticulitis 5. History of CVA. 6. Dysphagia, status post G-tube placement. 7. Underlying pneumonia. Ruled out for COVID-19. DAKSHA RN and Dr. Reeves Subjective Subjective Transferred out of ICU. Had colonoscopy today Objective Last 24 Hour Vital Signs Date Time Temp Pulse Resp B/P (MAP) Pulse Ox O2 Delivery O2 Flow Rate FiO2 06/02/19 11:50 75 18 151/69 96 Room Air 06/02/19 11:45 74 20 139/69 96 Room Air 06/02/19 11:30 75 20 168/90 99 Simple Mask 4 06/02/19 11:20 77 20 153/67 99 Simple Mask 4 06/02/19 11:15 75 20 149/70 99 Simple Mask 8 06/02/19 11:10 98.4 82 20 144/73 98 Simple Mask 8 06/02/19 09:15 104 146/68 06/02/19 07:45 60 06/02/19 04:00 Room Air 06/02/19 03:36 74 06/02/19 00:00 98.7 86 20 137/82 (100) 98 06/02/19 00:00 Room Air 06/01/19 23:25 92 06/01/19 23:00 100 20 156/123 (134) 97 06/01/19 21:36 100.5 06/01/19 21:00 74 17 146/74 (98) 100 06/01/19 20:00 79 06/01/19 20:00 101.0 69 22 151/55 (87) 99 06/01/19 20:00 Room Air 06/01/19 19:00 66 25 145/57 (86) 99 06/01/19 18:00 65 25 133/70 (91) 99 06/01/19 17:00 90 19 126/70 (88) 97 06/01/19 16:00 Room Air 06/01/19 16:00 98.7 96 16 110/78 (89) 96 06/01/19 16:00 91 06/01/19 15:00 68 17 120/63 (82) 100 Intake and Output 06/01/19 06/02/19 19:00 07:00 Intake Total 565 ml 1075.0 ml Balance 565 ml 1075.0 ml Intake IV Total 165 ml 275.0 ml Other 400 ml 800 ml # Voids 2 4 # Bowel Movements 1 2 Laboratory Tests Test 06/02/19 02:00 06/02/19 04:00 Vancomycin Level Trough 8.7 ug/mL (5.0-12.0) White Blood Count 5.3 K/UL (4.8-10.8) Red Blood Count 3.75 M/UL (4.20-5.40) L Hemoglobin 11.1 G/DL (12.0-16.0) L Hematocrit 31.7 % (37.0-47.0) L Mean Corpuscular Volume 85 FL (80-99) Mean Corpuscular Hemoglobin 29.5 PG (27.0-31.0) Mean Corpuscular Hemoglobin Concent 34.9 G/DL (32.0-36.0) Red Cell Distribution Width 12.3 % (11.6-14.8) Platelet Count 139 K/UL (150-450) L Mean Platelet Volume 9.1 FL (6.5-10.1) Neutrophils (%) (Auto) 67.5 % (45.0-75.0) Lymphocytes (%) (Auto) 20.8 % (20.0-45.0) Monocytes (%) (Auto) 11.3 % (1.0-10.0) H Eosinophils (%) (Auto) 0.1 % (0.0-3.0) Basophils (%) (Auto) 0.2 % (0.0-2.0) Sodium Level 145 MMOL/L (136-145) Potassium Level 3.0 MMOL/L (3.5-5.1) L Chloride Level 110 MMOL/L (98-107) H Carbon Dioxide Level 23 MMOL/L (21-32) Anion Gap 12 mmol/L (5-15) Blood Urea Nitrogen 9 mg/dL (7-18) Creatinine 0.6 MG/DL (0.55-1.30) Estimat Glomerular Filtration Rate > 60 mL/min (>60) Glucose Level 111 MG/DL (74-106) H Calcium Level 9.0 MG/DL (8.5-10.1) Objective HEAD AND NECK: Shows no JVD or carotid bruit. LUNGS: Coarse rhonchi. CARDIOVASCULAR: Shows regular S1 and S2. Bradycardic. ABDOMEN: Soft and status post G-tube. EXTREMITIES: No pitting edema. Telly Gottlieb MD Jun 02, 2019 14:35
--- NOTE | 2019-06-02 14:40 | Surgery Progress Note ---
Surgery Progress Note Subjective Additional Comments colonoscopy today 3 polyps no bleeding diverticulosis Objective Last 24 Hour Vital Signs Date Time Temp Pulse Resp B/P (MAP) Pulse Ox O2 Delivery O2 Flow Rate FiO2 06/02/19 11:50 75 18 151/69 96 Room Air 06/02/19 11:45 74 20 139/69 96 Room Air 06/02/19 11:30 75 20 168/90 99 Simple Mask 4 06/02/19 11:20 77 20 153/67 99 Simple Mask 4 06/02/19 11:15 75 20 149/70 99 Simple Mask 8 06/02/19 11:10 98.4 82 20 144/73 98 Simple Mask 8 06/02/19 09:15 104 146/68 06/02/19 07:45 60 06/02/19 04:00 Room Air 06/02/19 03:36 74 06/02/19 00:00 98.7 86 20 137/82 (100) 98 06/02/19 00:00 Room Air 06/01/19 23:25 92 06/01/19 23:00 100 20 156/123 (134) 97 06/01/19 21:36 100.5 06/01/19 21:00 74 17 146/74 (98) 100 06/01/19 20:00 79 06/01/19 20:00 101.0 69 22 151/55 (87) 99 06/01/19 20:00 Room Air 06/01/19 19:00 66 25 145/57 (86) 99 06/01/19 18:00 65 25 133/70 (91) 99 06/01/19 17:00 90 19 126/70 (88) 97 06/01/19 16:00 Room Air 06/01/19 16:00 98.7 96 16 110/78 (89) 96 06/01/19 16:00 91 06/01/19 15:00 68 17 120/63 (82) 100 I&O Intake and Output 06/01/19 06/02/19 19:00 07:00 Intake Total 565 ml 1075.0 ml Balance 565 ml 1075.0 ml Intake IV Total 165 ml 275.0 ml Other 400 ml 800 ml # Voids 2 4 # Bowel Movements 1 2 Dressing: other Wound: other Drains: other Cardiovascular: RSR Respiratory: decreased breath sounds Abdomen: soft, non-tender, present bowel sounds Extremities: no tenderness, no cyanosis Laboratory Tests Test 06/02/19 02:00 06/02/19 04:00 Vancomycin Level Trough 8.7 ug/mL (5.0-12.0) White Blood Count 5.3 K/UL (4.8-10.8) Red Blood Count 3.75 M/UL (4.20-5.40) L Hemoglobin 11.1 G/DL (12.0-16.0) L Hematocrit 31.7 % (37.0-47.0) L Mean Corpuscular Volume 85 FL (80-99) Mean Corpuscular Hemoglobin 29.5 PG (27.0-31.0) Mean Corpuscular Hemoglobin Concent 34.9 G/DL (32.0-36.0) Red Cell Distribution Width 12.3 % (11.6-14.8) Platelet Count 139 K/UL (150-450) L Mean Platelet Volume 9.1 FL (6.5-10.1) Neutrophils (%) (Auto) 67.5 % (45.0-75.0) Lymphocytes (%) (Auto) 20.8 % (20.0-45.0) Monocytes (%) (Auto) 11.3 % (1.0-10.0) H Eosinophils (%) (Auto) 0.1 % (0.0-3.0) Basophils (%) (Auto) 0.2 % (0.0-2.0) Sodium Level 145 MMOL/L (136-145) Potassium Level 3.0 MMOL/L (3.5-5.1) L Chloride Level 110 MMOL/L (98-107) H Carbon Dioxide Level 23 MMOL/L (21-32) Anion Gap 12 mmol/L (5-15) Blood Urea Nitrogen 9 mg/dL (7-18) Creatinine 0.6 MG/DL (0.55-1.30) Estimat Glomerular Filtration Rate > 60 mL/min (>60) Glucose Level 111 MG/DL (74-106) H Calcium Level 9.0 MG/DL (8.5-10.1) Plan Problems: (1) Episode of generalized weakness (2) Encephalopathy (3) Constipation (4) Hypercalcemia (5) Dysphagia (6) Altered level of consciousness (7) Toxic encephalopathy (8) Thrombocytopenia (9) GIB (gastrointestinal bleeding) Assessment & Plan: Upper GI lavage with g tube no blood likely lower gi bleed diverticuli? appreciate GI input s/p scope no acute findings okay for diet trend h/h abd exam benign no acute surgical intervention planned will follow with recs thank you (10) Lower GI bleed Assessment & Plan: Findings: There is a gastrostomy tube in place. The bowel gas pattern is unremarkable. No masses or unusual calcifications. There are degenerative changes of the lumbar spine Impression: No acute process (11) Epilepsy (12) Acute febrile illness (13) CVA (cerebral vascular accident) (14) Suspected 2019 novel coronavirus infection (15) Diabetes mellitus (16) HTN (hypertension) Tomi Ordoñez Jun 02, 2019 14:40
--- NOTE | 2019-06-02 16:45 | Procedure Note ---
DATE OF PROCEDURE: 06/02/2019 SURGEON: Thang Doan M.D. PROCEDURE: Colonoscopy. ANESTHESIA: Per Dr. Baxter. INSTRUMENT: Olympus adult flexible colonoscope. INDICATION: Rectal bleeding. REASON FOR PROCEDURE: The procedure, risks, benefits, and possible consequences, including hemorrhage, aspiration, perforation and infection, and alternative treatments, were explained to the patient/legal guardian by Dr. Thang Doan and the patient/legal guardian understood and accepted these risks. DESCRIPTION OF PROCEDURE: After informed consent was obtained and the patient was adequately sedated, first rectal examination was performed, which was positive for internal hemorrhoids. Then, the scope was advanced from the rectum into cecum documented by appendiceal orifice, ileocecal valve, right upper quadrant palpation. Quality of prep was good. The patient had multiple polyps, two in transverse and one in the sigmoid. Two in the transverse removed with cold biopsy forceps technique and one with cold snare. The patient had 1 or 2 diverticula in the left colon. Internal hemorrhoids seen on retroflexed view of patient. No evidence of any active bleeding at this time. SUMMARY OF FINDINGS: 1. Three colonic polyps removed, see above for details. 2. Internal hemorrhoids. 3. Scattered diverticulosis in the left colon. RECOMMENDATIONS: 1. Resume G-tube feeding. 2. Monitor hemoglobin and hematocrit. 3. Transfuse as needed. 4. The patient will need repeat colonoscopy in three years. I want to thank Dr. Fermin, for this kind referral. Thang Doan M.D. DR: Dylan JOB#: [id number] CC: Mariposa Fermin M.D.; Fax#: [phone]
[2019-06-02] MEDS: Iron Sucrose 100 MG in NS 55 ML IV SCH (20:07)
--- NOTE | 2019-06-02 22:18 | Neurology Progress Note ---
Interim History Interim History Interim History sp colono no active bleeding neuro wo new deficits, no seizures Objective Physical Exam Last Vital Signs Date Time Temp Pulse Resp B/P (MAP) Pulse Ox O2 Delivery O2 Flow Rate FiO2 06/02/19 22:01 97.3 86 22 132/89 (103) 97 06/02/19 20:00 Room Air 06/02/19 11:30 4 05/30/19 22:10 94 Laboratory Tests Test 06/02/19 02:00 06/02/19 04:00 Vancomycin Level Trough 8.7 ug/mL (5.0-12.0) White Blood Count 5.3 K/UL (4.8-10.8) Red Blood Count 3.75 M/UL (4.20-5.40) L Hemoglobin 11.1 G/DL (12.0-16.0) L Hematocrit 31.7 % (37.0-47.0) L Mean Corpuscular Volume 85 FL (80-99) Mean Corpuscular Hemoglobin 29.5 PG (27.0-31.0) Mean Corpuscular Hemoglobin Concent 34.9 G/DL (32.0-36.0) Red Cell Distribution Width 12.3 % (11.6-14.8) Platelet Count 139 K/UL (150-450) L Mean Platelet Volume 9.1 FL (6.5-10.1) Neutrophils (%) (Auto) 67.5 % (45.0-75.0) Lymphocytes (%) (Auto) 20.8 % (20.0-45.0) Monocytes (%) (Auto) 11.3 % (1.0-10.0) H Eosinophils (%) (Auto) 0.1 % (0.0-3.0) Basophils (%) (Auto) 0.2 % (0.0-2.0) Sodium Level 145 MMOL/L (136-145) Potassium Level 3.0 MMOL/L (3.5-5.1) L Chloride Level 110 MMOL/L (98-107) H Carbon Dioxide Level 23 MMOL/L (21-32) Anion Gap 12 mmol/L (5-15) Blood Urea Nitrogen 9 mg/dL (7-18) Creatinine 0.6 MG/DL (0.55-1.30) Estimat Glomerular Filtration Rate > 60 mL/min (>60) Glucose Level 111 MG/DL (74-106) H Calcium Level 9.0 MG/DL (8.5-10.1) Larry Juarez MD Jun 02, 2019 22:18
[2019-06-03] VITALS: BP 148/86
[2019-06-03] MEDS: Vancomycin 1gm in D5W 275ml IVPB SCH (03:55)
[2019-06-03 04:00] VITALS: BP 143/87
[2019-06-03 05:38] LABS: BASOPHILS % (AUTO) 0.2 % (0.0-2.0); HEMOGLOBIN 11.1 G/DL (12.0-16.0); LYMPHOCYTES % (AUTO) 9.7 % (20.0-45.0); MEAN CORPUSCULAR VOLUME 85 FL (80-99); MONOCYTES % (AUTO) 9.6 % (1.0-10.0); NEUTROPHILS % (AUTO) 80.5 % (45.0-75.0); PLATELET COUNT 183 K/UL (150-450); RED BLOOD COUNT 3.76 M/UL (4.20-5.40); RED CELL DISTRIBUTION WIDTH 12.7 % (11.6-14.8); WHITE BLOOD COUNT 7.1 K/UL (4.8-10.8)
[2019-06-03 05:51] LABS: BLOOD UREA NITROGEN 7 mg/dL (7-18); CALCIUM 8.2 MG/DL (8.5-10.1); CARBON DIOXIDE 27 MMOL/L (21-32); CHLORIDE 105 MMOL/L (98-107); CREATININE 0.7 MG/DL (0.55-1.30); SODIUM 140 MMOL/L (136-145)
[2019-06-03] MEDS: metroNIDAZOLE 500mg tab GT SCH ×2 (05:56→11:35)
[2019-06-03] MEDS ORDERED: Hydroxychloroquine Fact Sheet MISC ONE (07:30)
[2019-06-03 08:00] VITALS: BP 143/71
--- NOTE | 2019-06-03 09:16 | General Progress Note ---
Assessment/Plan Problem List: (1) Suspected 2019 novel coronavirus infection ICD Codes: R68.89 - Other general symptoms and signs SNOMED: 447307607 (2) Lower GI bleed ICD Codes: K92.2 - Gastrointestinal hemorrhage, unspecified SNOMED: 83641668 (3) Thrombocytopenia ICD Codes: D69.6 - Thrombocytopenia, unspecified SNOMED: 832111861 (4) Diabetes mellitus ICD Codes: E11.9 - Type 2 diabetes mellitus without complications SNOMED: 97515630 (5) HTN (hypertension) ICD Codes: I10 - Essential (primary) hypertension SNOMED: 07047491 Status: stable Assessment/Plan: s/p colonoscopy yesterday now COVED +!! will fu Subjective ROS Limited/Unobtainable: No Allergies: Coded Allergies: IODINE (Verified Allergy, Unknown, 11/10/17) Objective Last 24 Hour Vital Signs Date Time Temp Pulse Resp B/P (MAP) Pulse Ox O2 Delivery O2 Flow Rate FiO2 06/03/19 08:00 97.7 79 20 143/71 (95) 97 06/03/19 04:00 Room Air 06/03/19 04:00 98.1 83 20 143/87 (105) 97 06/03/19 03:32 82 06/03/19 00:00 97.8 85 20 148/86 (106) 96 06/03/19 00:00 Room Air 06/02/19 23:49 83 06/02/19 20:00 97.3 86 22 132/89 (103) 97 06/02/19 20:00 Room Air 06/02/19 19:29 98 06/02/19 16:00 Room Air 06/02/19 15:46 75 06/02/19 12:00 Room Air 06/02/19 11:50 75 18 151/69 96 Room Air 06/02/19 11:45 74 20 139/69 96 Room Air 06/02/19 11:30 75 20 168/90 99 Simple Mask 4 06/02/19 11:20 77 20 153/67 99 Simple Mask 4 06/02/19 11:15 75 20 149/70 99 Simple Mask 8 06/02/19 11:10 98.4 82 20 144/73 98 Simple Mask 8 06/02/19 10:15 97.8 70 18 151/79 (103) 98 06/02/19 09:15 104 146/68 Intake and Output 06/02/19 06/03/19 19:00 07:00 Intake Total 935 ml 915.000 ml Balance 935 ml 915.000 ml Intake Free Water 50 ml 250 ml IV Total 855 ml 335.000 ml Tube Feeding 30 ml 330 ml # Voids 5 # Bowel Movements 2 6 Laboratory Tests 06/03/19 04:00: White Blood Count 7.1, Red Blood Count 3.76L, Hemoglobin 11.1L, Hematocrit 32.0L , Mean Corpuscular Volume 85, Mean Corpuscular Hemoglobin 29.4, Mean Corpuscular Hemoglobin Concent 34.5, Red Cell Distribution Width 12.7, Platelet Count 183, Mean Platelet Volume 8.3, Neutrophils (%) (Auto) 80.5H, Lymphocytes ( %) (Auto) 9.7L, Monocytes (%) (Auto) 9.6, Eosinophils (%) (Auto) 0.0, Basophils (%) (Auto) 0.2, Sodium Level 140, Potassium Level 3.0L, Chloride Level 105, Carbon Dioxide Level 27, Blood Urea Nitrogen 7, Creatinine 0.7, Estimat Glomerular Filtration Rate > 60, Glucose Level 172H, Calcium Level 8.2L Height (Feet): 5 Height (Inches): 3.00 Weight (Pounds): 147 General Appearance: no apparent distress EENT: normal ENT inspection Neck: supple Cardiovascular: normal rate Respiratory/Chest: decreased breath sounds Abdomen: normal bowel sounds, non tender, soft Extremities: non-tender Thang Doan MD Jun 03, 2019 09:16
[2019-06-03] MEDS: Hydroxychloroquine 400mg tab ORAL SCH ×2 (09:29→17:34)
[2019-06-03] MEDS: Valproic Acid 250mg/5ml Liquid GT SCH ×2 (09:30→20:07)
[2019-06-03] MEDS: Pantoprazole Inj IVP SCH (09:30)
[2019-06-03] MEDS: cefTRIAXone 1 GM in NS 55 ML IVPB SCH (09:30)
--- NOTE | 2019-06-03 10:39 | Hematology/Onc Progress Note ---
Assessment/Plan Assessment/Plan Assessment and Recs: # Pancytopenia with Acute blood loss anemia, currently has been progressing --> likely related to underlying infection, covid rule out at this time --> currently is in the icu, hepatitis and hiv are pending --> us of the abdomen is pending, r/o hsm and cirrhosis --> smear of the periphery is pending --> abx as per id, started --> pressors prn --> 06/01 for colo by Olimpia showed 3 polyps --> repeat colo in 3 months # Acute GIB, with decrease in h/h --> Hgb stable on admission hgb 14-->11 --> no evidence of hemolyis is noted --> transfuse as needed, hgb goal >7 --> IVF hgb trend 10.4-->11.5 --> Protonix given in ED --> GI consulted, Dr Doan: GT lavage neg, transfuse plts, prep for possible colonoscopy, also per surg # Fever rule out covid 19 --> currently is on iso --> COVID pending --> KUB negative --> CXR ?right lung infiltrate --> per pulm # DMT2 --> accuchecks qac and qhs --> iss prn # HTN --> sbp goal is less than 140 --> as per cards # HLD --> holding ASA given acute GIB # H/o Epilepsy # Seizures # Dementia # COVID19++ --> supportive care # Dysphagia s/p PEG --> on tfs # DVT PPx: SCDs given acute GIB Appreciate consultation and dw Rn Subjective Constitutional: Denies: no symptoms, chills, fever, malaise, weakness, other HEENT: Denies: no symptoms, eye pain, blurred vision, tearing, double vision, ear pain, ear discharge, nose pain, nose congestion, throat pain, throat swelling, mouth pain, mouth swelling, other Cardiovascular: Denies: no symptoms, chest pain, edema, irregular heart rate, lightheadedness, palpitations, syncope, other Respiratory: Denies: no symptoms, cough, shortness of breath, SOB with excertion, SOB at rest, sputum, wheezing, other Gastrointestinal/Abdominal: Denies: no symptoms, abdomen distended, abdominal pain, black stools, tarry stools, blood in stool, constipated, diarrhea, difficulty swallowing, nausea, poor appetite, poor fluid intake, rectal bleeding , vomiting, other Genitourinary: Denies: no symptoms, burning, discharge, frequency, flank pain, hematuria, incontinence, pain, urgency, other Neurologic/Psychiatric: Denies: no symptoms, anxiety, depressed, emotional problems, headache, numbness, paresthesia, pre-existing deficit, seizure, tingling, tremors, weakness, other Endocrine: Denies: no symptoms, excessive sweating, flushing, intolerance to cold, intolerance to heat, increased hunger, increased thirst, increased urine, unexplained weight gain, unexplained weight loss, other Hematologic/Lymphatic: Denies: no symptoms, anemia, easy bleeding, easy bruising, adenopathy, other Allergies: Coded Allergies: IODINE (Verified Allergy, Unknown, 11/10/17) Subjective 05/31 is for colo tomorrow, labs reviewed, hgb stable 06/01 as per gi eval, for scope, no night sweats, dw rn 06/02 no major changes, labs reviewed, no bleeding, colo done yesterday, 3 polyps noted Objective Objective Current Medications Medications (Trade) Dose Ordered Sig/Claritza Route PRN Reason Start Time Stop Time Status Last Admin Dose Admin Acetaminophen (Tylenol) 650 mg Q4H PRN GT Mild Pain (Pain Scale 1-3) 06/02/19 01:00 06/29/19 13:29 Acetaminophen (Tylenol) 650 mg Q4H PRN GT T>100.4 06/02/19 01:00 06/29/19 13:29 Amlodipine Besylate (Norvasc) 5 mg DAILY GT 06/02/19 09:00 06/30/19 08:59 06/03/19 09:37 Ceftriaxone Sodium 1 gm/ Sodium Chloride 55 ml @ 110 mls/hr DAILY IVPB 06/02/19 09:00 06/07/19 08:59 06/03/19 09:30 Dextrose (Dextrose 50%) 25 ml Q30M PRN IV Hypoglycemia 06/02/19 00:00 08/28/19 13:29 Dextrose (Dextrose 50%) 50 ml Q30M PRN IV Hypoglycemia 06/02/19 00:00 08/28/19 13:29 Escitalopram Oxalate (Lexapro) 10 mg DAILY GT 06/02/19 09:00 06/30/19 08:59 06/03/19 09:29 Hydroxychloroquine Sulfate (Plaquenil) 200 mg BID ORAL 06/04/19 09:00 06/07/19 18:01 Hydroxychloroquine Sulfate (Plaquenil) 400 mg BID ORAL 06/03/19 09:00 06/03/19 18:01 06/03/19 09:29 Iron Sucrose 100 mg/Sodium Chloride 60 ml @ 240 mls/hr BEDTIME IV 06/02/19 21:00 06/05/19 21:14 06/02/19 20:07 Magnesium Hydroxide (Mom) 30 ml DAILYPRN PRN ORAL Constipation 06/02/19 09:00 06/29/19 08:59 Metronidazole (Flagyl) 500 mg Q6HR GT 06/02/19 00:00 06/06/19 17:59 06/03/19 05:56 Pantoprazole (Protonix) 40 mg DAILY IVP 06/02/19 09:00 06/30/19 10:59 06/03/19 09:30 Potassium Chloride (K-Dur) 40 meq ONCE GT 06/03/19 09:00 06/03/19 11:00 06/03/19 09:29 Pravastatin Sodium (Pravachol) 80 mg BEDTIME GT 06/02/19 21:00 06/29/19 20:59 06/02/19 20:08 Risperidone (RisperDAL) 1 mg BID GT 06/02/19 09:00 07/14/19 17:59 06/03/19 09:29 Tramadol HCl (Ultram) 25 mg Q8H PRN GT Moderate Pain (Pain Scale 4-6) 06/02/19 01:30 06/06/19 17:29 Valproic Acid (Depakene) 250 mg Q12HR GT 06/02/19 09:00 06/29/19 20:59 06/03/19 09:30 Vancomycin HCl (Vanco rx to dose) 1 ea DAILY PRN MISC . 06/02/19 09:00 06/30/19 12:29 Vancomycin HCl 1 gm/Dextrose 275 ml @ 183.708 mls/hr Q12H IVPB 06/02/19 04:00 06/07/19 03:59 06/03/19 03:55 Last 24 Hour Vital Signs Date Time Temp Pulse Resp B/P (MAP) Pulse Ox O2 Delivery O2 Flow Rate FiO2 06/03/19 09:37 79 143/71 06/03/19 08:00 97.7 79 20 143/71 (95) 97 06/03/19 04:00 Room Air 06/03/19 04:00 98.1 83 20 143/87 (105) 97 06/03/19 03:32 82 06/03/19 00:00 97.8 85 20 148/86 (106) 96 06/03/19 00:00 Room Air 06/02/19 23:49 83 06/02/19 20:00 97.3 86 22 132/89 (103) 97 06/02/19 20:00 Room Air 06/02/19 19:29 98 06/02/19 16:00 Room Air 06/02/19 15:46 75 06/02/19 12:00 Room Air 06/02/19 11:50 75 18 151/69 96 Room Air 06/02/19 11:45 74 20 139/69 96 Room Air 06/02/19 11:30 75 20 168/90 99 Simple Mask 4 06/02/19 11:20 77 20 153/67 99 Simple Mask 4 06/02/19 11:15 75 20 149/70 99 Simple Mask 8 06/02/19 11:10 98.4 82 20 144/73 98 Simple Mask 8 06/02/19 10:15 97.8 70 18 151/79 (103) 98 06/02/19 09:15 104 146/68 06/02/19 08:00 Room Air 06/02/19 07:45 60 06/02/19 04:00 Room Air 06/02/19 03:36 74 06/02/19 00:00 98.7 86 20 137/82 (100) 98 06/02/19 00:00 Room Air 06/01/19 23:25 92 06/01/19 23:00 100 20 156/123 (134) 97 06/01/19 21:36 100.5 06/01/19 21:00 74 17 146/74 (98) 100 06/01/19 20:00 79 06/01/19 20:00 101.0 69 22 151/55 (87) 99 06/01/19 20:00 Room Air 06/01/19 19:00 66 25 145/57 (86) 99 06/01/19 18:00 65 25 133/70 (91) 99 06/01/19 17:00 90 19 126/70 (88) 97 06/01/19 16:00 Room Air 06/01/19 16:00 98.7 96 16 110/78 (89) 96 06/01/19 16:00 91 06/01/19 15:00 68 17 120/63 (82) 100 06/01/19 14:00 68 18 134/51 (78) 99 06/01/19 13:00 98.6 81 27 116/55 (75) 99 06/01/19 12:00 Room Air 06/01/19 12:00 55 06/01/19 12:00 68 24 108/91 (97) 97 06/01/19 11:00 71 15 149/91 (110) 99 Intake and Output 06/02/19 06/03/19 19:00 07:00 Intake Total 935 ml 915.000 ml Balance 935 ml 915.000 ml Intake Free Water 50 ml 250 ml IV Total 855 ml 335.000 ml Tube Feeding 30 ml 330 ml # Voids 5 # Bowel Movements 2 6 Labs Test 05/31/19 11:55 06/01/19 04:00 06/02/19 02:00 06/02/19 04:00 D-Dimer 4.29 mg/L FEU (0.00-0.49) White Blood Count 4.8 K/UL (4.8-10.8) 5.3 K/UL (4.8-10.8) Red Blood Count 3.89 M/UL (4.20-5.40) 3.75 M/UL (4.20-5.40) Hemoglobin 11.5 G/DL (12.0-16.0) 11.1 G/DL (12.0-16.0) Hematocrit 33.5 % (37.0-47.0) 31.7 % (37.0-47.0) Mean Corpuscular Volume 86 FL (80-99) 85 FL (80-99) Mean Corpuscular Hemoglobin 29.7 PG (27.0-31.0) 29.5 PG (27.0-31.0) Mean Corpuscular Hemoglobin Concent 34.5 G/DL (32.0-36.0) 34.9 G/DL (32.0-36.0) Red Cell Distribution Width 12.9 % (11.6-14.8) 12.3 % (11.6-14.8) Platelet Count 124 K/UL (150-450) 139 K/UL (150-450) Mean Platelet Volume 8.9 FL (6.5-10.1) 9.1 FL (6.5-10.1) Neutrophils (%) (Auto) 61.6 % (45.0-75.0) 67.5 % (45.0-75.0) Lymphocytes (%) (Auto) 27.0 % (20.0-45.0) 20.8 % (20.0-45.0) Monocytes (%) (Auto) 10.6 % (1.0-10.0) 11.3 % (1.0-10.0) Eosinophils (%) (Auto) 0.4 % (0.0-3.0) 0.1 % (0.0-3.0) Basophils (%) (Auto) 0.4 % (0.0-2.0) 0.2 % (0.0-2.0) Prothrombin Time 10.2 SEC (9.30-11.50) Prothromb Time International Ratio 1.0 (0.9-1.1) Sodium Level 144 MMOL/L (136-145) 145 MMOL/L (136-145) Potassium Level 3.5 MMOL/L (3.5-5.1) 3.0 MMOL/L (3.5-5.1) Chloride Level 110 MMOL/L (98-107) 110 MMOL/L (98-107) Carbon Dioxide Level 22 MMOL/L (21-32) 23 MMOL/L (21-32) Anion Gap 12 mmol/L (5-15) 12 mmol/L (5-15) Blood Urea Nitrogen 8 mg/dL (7-18) 9 mg/dL (7-18) Creatinine 0.5 MG/DL (0.55-1.30) 0.6 MG/DL (0.55-1.30) Estimat Glomerular Filtration Rate > 60 mL/min (>60) > 60 mL/min (>60) Glucose Level 72 MG/DL (74-106) 111 MG/DL (74-106) Calcium Level 9.2 MG/DL (8.5-10.1) 9.0 MG/DL (8.5-10.1) Iron Level 23 ug/dL (50-175) Total Iron Binding Capacity 181 ug/dL (250-450) Percent Iron Saturation 13 % (15-50) Unsaturated Iron Binding 158 ug/dL (112-346) Ferritin 343 NG/ML (8-388) Troponin I 0.006 ng/mL (0.000-0.056) Thyroid Stimulating Hormone (TSH) 1.677 uiU/mL (0.358-3.740) Free Thyroxine 1.11 NG/DL (0.76-1.46) Hepatitis A IgM Antibody Negative (Negative) Hepatitis B Surface Antigen Negative (Negative) Hepatitis B Core IgM Antibody Negative (Negative) Hepatitis C Antibody <0.1 s/co ratio Vancomycin Level Trough 8.7 ug/mL (5.0-12.0) Test 06/03/19 04:00 White Blood Count 7.1 K/UL (4.8-10.8) Red Blood Count 3.76 M/UL (4.20-5.40) Hemoglobin 11.1 G/DL (12.0-16.0) Hematocrit 32.0 % (37.0-47.0) Mean Corpuscular Volume 85 FL (80-99) Mean Corpuscular Hemoglobin 29.4 PG (27.0-31.0) Mean Corpuscular Hemoglobin Concent 34.5 G/DL (32.0-36.0) Red Cell Distribution Width 12.7 % (11.6-14.8) Platelet Count 183 K/UL (150-450) Mean Platelet Volume 8.3 FL (6.5-10.1) Neutrophils (%) (Auto) 80.5 % (45.0-75.0) Lymphocytes (%) (Auto) 9.7 % (20.0-45.0) Monocytes (%) (Auto) 9.6 % (1.0-10.0) Eosinophils (%) (Auto) 0.0 % (0.0-3.0) Basophils (%) (Auto) 0.2 % (0.0-2.0) Sodium Level 140 MMOL/L (136-145) Potassium Level 3.0 MMOL/L (3.5-5.1) Chloride Level 105 MMOL/L (98-107) Carbon Dioxide Level 27 MMOL/L (21-32) Blood Urea Nitrogen 7 mg/dL (7-18) Creatinine 0.7 MG/DL (0.55-1.30) Estimat Glomerular Filtration Rate > 60 mL/min (>60) Glucose Level 172 MG/DL (74-106) Calcium Level 8.2 MG/DL (8.5-10.1) Height (Feet): 5 Height (Inches): 3.00 Weight (Pounds): 147 Objective Physical Exam Physical Exam Narrative General: NAD, A&O x 1, awake, alert, noncommunicative HEENT: NCAT, EOMi, dry mucous membranes CV: RRR, no murmurs, rubs, or gallops Pulm: CTAB, No wheezes, rhonchi, or rales, no accessory muscle usage or conversational dyspnea GI: Soft, nontender, nondistended, bowel sounds present, +PEG c/d/i Neuro: Limited due to patient communication/participation Ext: No lower extremity edema bilaterally Skin: no rashes lesions or ulcers Timothy Wong MD Jun 03, 2019 10:39
--- NOTE | 2019-06-03 10:59 | Pulmonology Progress Note ---
Assessment/Plan Assessment/Plan IMPRESSION: 1. Rectal bleeding. 2. Right lung pneumonia. 3. CVA. 4. snf resident. DISCUSSION: Repeat COVID 19 positive I will follow as sql dba. Abx per ID Continue oxygen prn and pulmonary hygiene. Subjective Interval Events: Saturating well on RA Constitutional: Reports: no symptoms HEENT: Repors: no symptoms Respiratory: Reports: no symptoms Cardiovascular: Reports: no symptoms Gastrointestinal/Abdominal: Reports: no symptoms Genitourinary: Reports: no symptoms Allergies: Coded Allergies: IODINE (Verified Allergy, Unknown, 11/10/17) Objective Last 24 Hour Vital Signs Date Time Temp Pulse Resp B/P (MAP) Pulse Ox O2 Delivery O2 Flow Rate FiO2 06/03/19 09:37 79 143/71 06/03/19 08:00 97.7 79 20 143/71 (95) 97 06/03/19 04:00 Room Air 06/03/19 04:00 98.1 83 20 143/87 (105) 97 06/03/19 03:32 82 06/03/19 00:00 97.8 85 20 148/86 (106) 96 06/03/19 00:00 Room Air 06/02/19 23:49 83 06/02/19 20:00 97.3 86 22 132/89 (103) 97 06/02/19 20:00 Room Air 06/02/19 19:29 98 06/02/19 16:00 Room Air 06/02/19 15:46 75 06/02/19 12:00 Room Air 06/02/19 11:50 75 18 151/69 96 Room Air 06/02/19 11:45 74 20 139/69 96 Room Air 06/02/19 11:30 75 20 168/90 99 Simple Mask 4 06/02/19 11:20 77 20 153/67 99 Simple Mask 4 06/02/19 11:15 75 20 149/70 99 Simple Mask 8 06/02/19 11:10 98.4 82 20 144/73 98 Simple Mask 8 Intake and Output 06/02/19 06/03/19 19:00 07:00 Intake Total 935 ml 915.000 ml Balance 935 ml 915.000 ml Intake Free Water 50 ml 250 ml IV Total 855 ml 335.000 ml Tube Feeding 30 ml 330 ml # Voids 5 # Bowel Movements 2 6 General Appearance: no acute distress HEENT: normocephalic Respiratory/Chest: chest wall non-tender Cardiovascular: normal peripheral pulses Abdomen: normal bowel sounds Microbiology Date/Time Source Procedure Growth Status 06/01/19 14:00 Nasopharynx Coronavirus COVID-19 PCR (HOME) - Final Complete Laboratory Tests 06/03/19 04:00: White Blood Count 7.1, Red Blood Count 3.76L, Hemoglobin 11.1L, Hematocrit 32.0L , Mean Corpuscular Volume 85, Mean Corpuscular Hemoglobin 29.4, Mean Corpuscular Hemoglobin Concent 34.5, Red Cell Distribution Width 12.7, Platelet Count 183, Mean Platelet Volume 8.3, Neutrophils (%) (Auto) 80.5H, Lymphocytes ( %) (Auto) 9.7L, Monocytes (%) (Auto) 9.6, Eosinophils (%) (Auto) 0.0, Basophils (%) (Auto) 0.2, Sodium Level 140, Potassium Level 3.0L, Chloride Level 105, Carbon Dioxide Level 27, Blood Urea Nitrogen 7, Creatinine 0.7, Estimat Glomerular Filtration Rate > 60, Glucose Level 172H, Calcium Level 8.2L Current Medications Medications (Trade) Dose Ordered Sig/Claritza Route PRN Reason Start Time Stop Time Status Last Admin Dose Admin Acetaminophen (Tylenol) 650 mg Q4H PRN GT Mild Pain (Pain Scale 1-3) 06/02/19 01:00 06/29/19 13:29 Acetaminophen (Tylenol) 650 mg Q4H PRN GT T>100.4 06/02/19 01:00 06/29/19 13:29 Amlodipine Besylate (Norvasc) 5 mg DAILY GT 06/02/19 09:00 06/30/19 08:59 06/03/19 09:37 Ceftriaxone Sodium 1 gm/ Sodium Chloride 55 ml @ 110 mls/hr DAILY IVPB 06/02/19 09:00 06/07/19 08:59 06/03/19 09:30 Dextrose (Dextrose 50%) 25 ml Q30M PRN IV Hypoglycemia 06/02/19 00:00 08/28/19 13:29 Dextrose (Dextrose 50%) 50 ml Q30M PRN IV Hypoglycemia 06/02/19 00:00 08/28/19 13:29 Escitalopram Oxalate (Lexapro) 10 mg DAILY GT 06/02/19 09:00 06/30/19 08:59 06/03/19 09:29 Hydroxychloroquine Sulfate (Plaquenil) 200 mg BID ORAL 06/04/19 09:00 06/07/19 18:01 Hydroxychloroquine Sulfate (Plaquenil) 400 mg BID ORAL 06/03/19 09:00 06/03/19 18:01 06/03/19 09:29 Iron Sucrose 100 mg/Sodium Chloride 60 ml @ 240 mls/hr BEDTIME IV 06/02/19 21:00 06/05/19 21:14 06/02/19 20:07 Magnesium Hydroxide (Mom) 30 ml DAILYPRN PRN ORAL Constipation 06/02/19 09:00 06/29/19 08:59 Metronidazole (Flagyl) 500 mg Q6HR GT 06/02/19 00:00 06/06/19 17:59 06/03/19 05:56 Pantoprazole (Protonix) 40 mg DAILY IVP 06/02/19 09:00 06/30/19 10:59 06/03/19 09:30 Potassium Chloride (K-Dur) 40 meq ONCE GT 06/03/19 09:00 06/03/19 11:00 06/03/19 09:29 Pravastatin Sodium (Pravachol) 80 mg BEDTIME GT 06/02/19 21:00 06/29/19 20:59 06/02/19 20:08 Risperidone (RisperDAL) 1 mg BID GT 06/02/19 09:00 07/14/19 17:59 06/03/19 09:29 Tramadol HCl (Ultram) 25 mg Q8H PRN GT Moderate Pain (Pain Scale 4-6) 06/02/19 01:30 06/06/19 17:29 Valproic Acid (Depakene) 250 mg Q12HR GT 06/02/19 09:00 06/29/19 20:59 06/03/19 09:30 Vancomycin HCl (Vanco rx to dose) 1 ea DAILY PRN MISC . 06/02/19 09:00 06/30/19 12:29 Vancomycin HCl 1 gm/Dextrose 275 ml @ 183.708 mls/hr Q12H IVPB 06/02/19 04:00 06/07/19 03:59 06/03/19 03:55 Horace Landaverde MD Jun 03, 2019 10:59
[2019-06-03 11:37] VITALS: BP 144/78
--- NOTE | 2019-06-03 12:53 | General Progress Note ---
Assessment/Plan Status: stable Assessment/Plan: 74-year-old female from [facility] w/PMH CVA, dysphasia s/p PEG, dementia, epilepsy, ?DMT2 who presents with bright red blood per rectum, GIB. Patient came facility with multiple COVID positive patients, patient is pending COVID rule out. #Acute blood loss anemia #Acute GIB -continue inpatient level of care -cont. to monitor hgb -Colonoscopy 06/01 without active bleed -Surgery following -Cardio following #COVID exposure, second PCR positive #Fever -fever 102.7 rectal in ED -COVID positive -KUB negative -CXR ?right lung infiltrate -BCx pending -Cont vanco, ceftriaxone, Plaquenil -ID and Pulm consulted #?DMT2 -per chart review pt w/h/o DM -no medications seen in APR from [facility] #HTN #HLD -holding ASA given acute GIB -cont. home coreg w/hold parameters #H/o Epilepsy #Seizures #?Dementia -no seizure activity reported by [facility] -cont. valproic acid -check valproic acid level -cont. home risperdol -Neurology consulted #Dysphagia s/p PEG -TF per nutrition #Hypokalemia -replace with KCl via G-tube, BMP in AM DVT PPx: SCDs given acute GIB Time spent on encounter: 35 mins, >50% on counseling, coordination of care with consulting MDs, RN, online project manager. Time of note doesn't reflect time of encounter. Subjective Date patient seen: Jun 03, 2019 Time patient seen: 12:48 ROS Limited/Unobtainable: Yes Allergies: Coded Allergies: IODINE (Verified Allergy, Unknown, 11/10/17) Subjective Follow up for acute blood loss anemia Second COVID-19 PCR came back positive today, started on Plaquenil per ID recs Objective Last 24 Hour Vital Signs Date Time Temp Pulse Resp B/P (MAP) Pulse Ox O2 Delivery O2 Flow Rate FiO2 06/03/19 11:37 98.2 84 20 144/78 (100) 95 06/03/19 09:37 79 143/71 06/03/19 08:00 Room Air 06/03/19 08:00 97.7 79 20 143/71 (95) 97 06/03/19 04:00 Room Air 06/03/19 04:00 98.1 83 20 143/87 (105) 97 06/03/19 03:32 82 06/03/19 00:00 97.8 85 20 148/86 (106) 96 06/03/19 00:00 Room Air 06/02/19 23:49 83 06/02/19 20:00 97.3 86 22 132/89 (103) 97 06/02/19 20:00 Room Air 06/02/19 19:29 98 06/02/19 16:00 Room Air 06/02/19 15:46 75 Intake and Output 06/02/19 06/03/19 19:00 07:00 Intake Total 935 ml 915.000 ml Balance 935 ml 915.000 ml Intake Free Water 50 ml 250 ml IV Total 855 ml 335.000 ml Tube Feeding 30 ml 330 ml # Voids 5 # Bowel Movements 2 6 Laboratory Tests 06/03/19 04:00: White Blood Count 7.1, Red Blood Count 3.76L, Hemoglobin 11.1L, Hematocrit 32.0L , Mean Corpuscular Volume 85, Mean Corpuscular Hemoglobin 29.4, Mean Corpuscular Hemoglobin Concent 34.5, Red Cell Distribution Width 12.7, Platelet Count 183, Mean Platelet Volume 8.3, Neutrophils (%) (Auto) 80.5H, Lymphocytes ( %) (Auto) 9.7L, Monocytes (%) (Auto) 9.6, Eosinophils (%) (Auto) 0.0, Basophils (%) (Auto) 0.2, Sodium Level 140, Potassium Level 3.0L, Chloride Level 105, Carbon Dioxide Level 27, Blood Urea Nitrogen 7, Creatinine 0.7, Estimat Glomerular Filtration Rate > 60, Glucose Level 172H, Calcium Level 8.2L Height (Feet): 5 Height (Inches): 3.00 Weight (Pounds): 151 General Appearance: alert, confused Cardiovascular: normal rate, regular rhythm Respiratory/Chest: lungs clear, normal breath sounds Abdomen: non tender, soft Pierce Baptiste MD Jun 03, 2019 12:53
--- NOTE | 2019-06-03 14:14 | Cardiac Electrophysiology PN ---
Assessment/Plan Assessment/Plan 1. Bradycardia. Better off Coreg. Echocardiogram is pending after COVID becomes negative. 2. Hypertension, on amlodipine 5 daily 3. Hyperlipidemia, 4. Rectal bleeding. S/P Colonoscopy by Dr. Doan that showed diverticulitis 5. History of CVA. 6. Dysphagia, status post G-tube placement. 7. Underlying pneumonia. COVID-19 PCR was negative on 05/29, but now positive! Will be started on Plaquenil. QTc today is [address] Bray Subjective Subjective Had colonoscopy yesterday. Second Covid also came back positive.In SR Objective Last 24 Hour Vital Signs Date Time Temp Pulse Resp B/P (MAP) Pulse Ox O2 Delivery O2 Flow Rate FiO2 06/03/19 12:00 86 06/03/19 12:00 Room Air 06/03/19 11:37 98.2 84 20 144/78 (100) 95 06/03/19 09:37 79 143/71 06/03/19 08:00 Room Air 06/03/19 08:00 97.7 79 20 143/71 (95) 97 06/03/19 08:00 74 06/03/19 04:00 Room Air 06/03/19 04:00 98.1 83 20 143/87 (105) 97 06/03/19 03:32 82 06/03/19 00:00 97.8 85 20 148/86 (106) 96 06/03/19 00:00 Room Air 06/02/19 23:49 83 06/02/19 20:00 97.3 86 22 132/89 (103) 97 06/02/19 20:00 Room Air 06/02/19 19:29 98 06/02/19 16:00 Room Air 06/02/19 15:46 75 Intake and Output 06/02/19 06/03/19 19:00 07:00 Intake Total 935 ml 915.000 ml Balance 935 ml 915.000 ml Intake Free Water 50 ml 250 ml IV Total 855 ml 335.000 ml Tube Feeding 30 ml 330 ml # Voids 5 # Bowel Movements 2 6 Laboratory Tests Test 06/03/19 04:00 White Blood Count 7.1 K/UL (4.8-10.8) Red Blood Count 3.76 M/UL (4.20-5.40) L Hemoglobin 11.1 G/DL (12.0-16.0) L Hematocrit 32.0 % (37.0-47.0) L Mean Corpuscular Volume 85 FL (80-99) Mean Corpuscular Hemoglobin 29.4 PG (27.0-31.0) Mean Corpuscular Hemoglobin Concent 34.5 G/DL (32.0-36.0) Red Cell Distribution Width 12.7 % (11.6-14.8) Platelet Count 183 K/UL (150-450) Mean Platelet Volume 8.3 FL (6.5-10.1) Neutrophils (%) (Auto) 80.5 % (45.0-75.0) H Lymphocytes (%) (Auto) 9.7 % (20.0-45.0) L Monocytes (%) (Auto) 9.6 % (1.0-10.0) Eosinophils (%) (Auto) 0.0 % (0.0-3.0) Basophils (%) (Auto) 0.2 % (0.0-2.0) Sodium Level 140 MMOL/L (136-145) Potassium Level 3.0 MMOL/L (3.5-5.1) L Chloride Level 105 MMOL/L (98-107) Carbon Dioxide Level 27 MMOL/L (21-32) Blood Urea Nitrogen 7 mg/dL (7-18) Creatinine 0.7 MG/DL (0.55-1.30) Estimat Glomerular Filtration Rate > 60 mL/min (>60) Glucose Level 172 MG/DL (74-106) H Calcium Level 8.2 MG/DL (8.5-10.1) L Microbiology Date/Time Source Procedure Growth Status 06/01/19 14:00 Nasopharynx Coronavirus COVID-19 PCR (HOME) - Final Complete Objective HEAD AND NECK: Shows no JVD, face Mask is on LUNGS: Coarse rhonchi. CARDIOVASCULAR: Shows regular S1 and S2. Bradycardic. ABDOMEN: Soft and status post G-tube. EXTREMITIES: No pitting edema. Telly Gottlieb MD Jun 03, 2019 14:14
--- NOTE | 2019-06-03 14:34 | Infectious Diseases Prog Note ---
"Assessment/Plan Assessment/Plan antibiotics : vancomycin iv, ceftriaxone, flagyl A 1. COVID 19 pneumonia 2. fever 3. GI bleeding 4. diabetes mellitus 5. epilepsy 6. dementia 7. CVA 8. + blood cultures with coag neg staph | diphtheroids likely contaminated P 1. D/c iv vancomycin, ceftriaxone, flagyl 2. start hydroxychloroquine 3. will follow up cultures 4. continue isolation Subjective ROS Limited/Unobtainable: Yes Allergies: Coded Allergies: IODINE (Verified Allergy, Unknown, 11/10/17) Objective Vital Signs Last 24 Hour Vital Signs Date Time Temp Pulse Resp B/P (MAP) Pulse Ox O2 Delivery O2 Flow Rate FiO2 06/03/19 12:00 86 06/03/19 12:00 Room Air 06/03/19 11:37 98.2 84 20 144/78 (100) 95 06/03/19 09:37 79 143/71 06/03/19 08:00 Room Air 06/03/19 08:00 97.7 79 20 143/71 (95) 97 06/03/19 08:00 74 06/03/19 04:00 Room Air 06/03/19 04:00 98.1 83 20 143/87 (105) 97 06/03/19 03:32 82 06/03/19 00:00 97.8 85 20 148/86 (106) 96 06/03/19 00:00 Room Air 06/02/19 23:49 83 06/02/19 20:00 97.3 86 22 132/89 (103) 97 06/02/19 20:00 Room Air 06/02/19 19:29 98 06/02/19 16:00 Room Air 06/02/19 15:46 75 Height (Feet): 5 Height (Inches): 3.00 Weight (Pounds): 151 Respiratory/Chest: lungs clear Cardiovascular: normal rate, regular rhythm, no gallop/murmur Abdomen: soft, non tender Extremities: no edema Microbiology Date/Time Source Procedure Growth Status 06/01/19 14:00 Nasopharynx Coronavirus COVID-19 PCR (HOME) - Final Complete Laboratory Tests Test 06/03/19 04:00 White Blood Count 7.1 K/UL (4.8-10.8) Red Blood Count 3.76 M/UL (4.20-5.40) L Hemoglobin 11.1 G/DL (12.0-16.0) L Hematocrit 32.0 % (37.0-47.0) L Mean Corpuscular Volume 85 FL (80-99) Mean Corpuscular Hemoglobin 29.4 PG (27.0-31.0) Mean Corpuscular Hemoglobin Concent 34.5 G/DL (32.0-36.0) Red Cell Distribution Width 12.7 % (11.6-14.8) Platelet Count 183 K/UL (150-450) Mean Platelet Volume 8.3 FL (6.5-10.1) Neutrophils (%) (Auto) 80.5 % (45.0-75.0) H Lymphocytes (%) (Auto) 9.7 % (20.0-45.0) L Monocytes (%) (Auto) 9.6 % (1.0-10.0) Eosinophils (%) (Auto) 0.0 % (0.0-3.0) Basophils (%) (Auto) 0.2 % (0.0-2.0) Sodium Level 140 MMOL/L (136-145) Potassium Level 3.0 MMOL/L (3.5-5.1) L Chloride Level 105 MMOL/L (98-107) Carbon Dioxide Level 27 MMOL/L (21-32) Blood Urea Nitrogen 7 mg/dL (7-18) Creatinine 0.7 MG/DL (0.55-1.30) Estimat Glomerular Filtration Rate > 60 mL/min (>60) Glucose Level 172 MG/DL (74-106) H Calcium Level 8.2 MG/DL (8.5-10.1) L Current Medications Medications (Trade) Dose Ordered Sig/Claritza Route PRN Reason Start Time Stop Time Status Last Admin Dose Admin Acetaminophen (Tylenol) 650 mg Q4H PRN GT Mild Pain (Pain Scale 1-3) 06/02/19 01:00 06/29/19 13:29 Acetaminophen (Tylenol) 650 mg Q4H PRN GT T>100.4 06/02/19 01:00 06/29/19 13:29 Amlodipine Besylate (Norvasc) 5 mg DAILY GT 06/02/19 09:00 06/30/19 08:59 06/03/19 09:37 Ceftriaxone Sodium 1 gm/ Sodium Chloride 55 ml @ 110 mls/hr DAILY IVPB 06/02/19 09:00 06/07/19 08:59 06/03/19 09:30 Dextrose (Dextrose 50%) 25 ml Q30M PRN IV Hypoglycemia 06/02/19 00:00 08/28/19 13:29 Dextrose (Dextrose 50%) 50 ml Q30M PRN IV Hypoglycemia 06/02/19 00:00 08/28/19 13:29 Escitalopram Oxalate (Lexapro) 10 mg DAILY GT 06/02/19 09:00 06/30/19 08:59 06/03/19 09:29 Hydroxychloroquine Sulfate (Plaquenil) 200 mg BID ORAL 06/04/19 09:00 06/07/19 18:01 Hydroxychloroquine Sulfate (Plaquenil) 400 mg BID ORAL 06/03/19 09:00 06/03/19 18:01 06/03/19 09:29 Iron Sucrose 100 mg/Sodium Chloride 60 ml @ 240 mls/hr BEDTIME IV 06/02/19 21:00 06/05/19 21:14 06/02/19 20:07 Magnesium Hydroxide (Mom) 30 ml DAILYPRN PRN ORAL Constipation 06/02/19 09:00 06/29/19 08:59 Metronidazole (Flagyl) 500 mg Q6HR GT 06/02/19 00:00 06/06/19 17:59 06/03/19 11:35 Pantoprazole (Protonix) 40 mg DAILY IVP 06/02/19 09:00 06/30/19 10:59 06/03/19 09:30 Pravastatin Sodium (Pravachol) 80 mg BEDTIME GT 06/02/19 21:00 06/29/19 20:59 06/02/19 20:08 Risperidone (RisperDAL) 1 mg BID GT 06/02/19 09:00 07/14/19 17:59 06/03/19 09:29 Tramadol HCl (Ultram) 25 mg Q8H PRN GT Moderate Pain (Pain Scale 4-6) 06/02/19 01:30 06/06/19 17:29 Valproic Acid (Depakene) 250 mg Q12HR GT 06/02/19 09:00 06/29/19 20:59 06/03/19 09:30 Vancomycin HCl (Vanco rx to dose) 1 ea DAILY PRN MISC . 06/02/19 09:00 06/30/19 12:29 Vancomycin HCl 1 gm/Dextrose 275 ml @ 183.708 mls/hr Q12H IVPB 06/02/19 04:00 06/07/19 03:59 06/03/19 03:55 Radha Dunham MD Jun 03, 2019 14:34"
[2019-06-03 15:08] VITALS: BP 129/66
--- NOTE | 2019-06-03 16:09 | Surgery Progress Note ---
Surgery Progress Note Subjective Additional Comments COVID positive moved to full precautions labs noted exam stable Objective Last 24 Hour Vital Signs Date Time Temp Pulse Resp B/P (MAP) Pulse Ox O2 Delivery O2 Flow Rate FiO2 06/03/19 16:00 Room Air 06/03/19 16:00 74 06/03/19 15:08 98.8 76 20 129/66 (87) 95 06/03/19 12:00 86 06/03/19 12:00 Room Air 06/03/19 11:37 98.2 84 20 144/78 (100) 95 06/03/19 09:37 79 143/71 06/03/19 08:00 Room Air 06/03/19 08:00 97.7 79 20 143/71 (95) 97 06/03/19 08:00 74 06/03/19 04:00 Room Air 06/03/19 04:00 98.1 83 20 143/87 (105) 97 06/03/19 03:32 82 06/03/19 00:00 97.8 85 20 148/86 (106) 96 06/03/19 00:00 Room Air 06/02/19 23:49 83 06/02/19 20:00 97.3 86 22 132/89 (103) 97 06/02/19 20:00 Room Air 06/02/19 19:29 98 I&O Intake and Output 06/02/19 06/03/19 19:00 07:00 Intake Total 935 ml 915.000 ml Balance 935 ml 915.000 ml Intake Free Water 50 ml 250 ml IV Total 855 ml 335.000 ml Tube Feeding 30 ml 330 ml # Voids 5 # Bowel Movements 2 6 Dressing: other Wound: other Drains: other Cardiovascular: RSR Respiratory: decreased breath sounds Abdomen: soft, non-tender, present bowel sounds Extremities: no tenderness, no cyanosis Laboratory Tests Test 06/03/19 04:00 White Blood Count 7.1 K/UL (4.8-10.8) Red Blood Count 3.76 M/UL (4.20-5.40) L Hemoglobin 11.1 G/DL (12.0-16.0) L Hematocrit 32.0 % (37.0-47.0) L Mean Corpuscular Volume 85 FL (80-99) Mean Corpuscular Hemoglobin 29.4 PG (27.0-31.0) Mean Corpuscular Hemoglobin Concent 34.5 G/DL (32.0-36.0) Red Cell Distribution Width 12.7 % (11.6-14.8) Platelet Count 183 K/UL (150-450) Mean Platelet Volume 8.3 FL (6.5-10.1) Neutrophils (%) (Auto) 80.5 % (45.0-75.0) H Lymphocytes (%) (Auto) 9.7 % (20.0-45.0) L Monocytes (%) (Auto) 9.6 % (1.0-10.0) Eosinophils (%) (Auto) 0.0 % (0.0-3.0) Basophils (%) (Auto) 0.2 % (0.0-2.0) Sodium Level 140 MMOL/L (136-145) Potassium Level 3.0 MMOL/L (3.5-5.1) L Chloride Level 105 MMOL/L (98-107) Carbon Dioxide Level 27 MMOL/L (21-32) Blood Urea Nitrogen 7 mg/dL (7-18) Creatinine 0.7 MG/DL (0.55-1.30) Estimat Glomerular Filtration Rate > 60 mL/min (>60) Glucose Level 172 MG/DL (74-106) H Calcium Level 8.2 MG/DL (8.5-10.1) L Plan Problems: (1) Episode of generalized weakness (2) Encephalopathy (3) Constipation (4) Hypercalcemia (5) Dysphagia (6) Altered level of consciousness (7) Toxic encephalopathy (8) Thrombocytopenia (9) GIB (gastrointestinal bleeding) Assessment & Plan: Upper GI lavage with g tube no blood likely lower gi bleed diverticuli? appreciate GI input s/p scope no acute findings okay for diet trend h/h abd exam benign no acute surgical intervention planned will follow with recs thank you (10) Lower GI bleed Assessment & Plan: Findings: There is a gastrostomy tube in place. The bowel gas pattern is unremarkable. No masses or unusual calcifications. There are degenerative changes of the lumbar spine Impression: No acute process (11) Epilepsy (12) Acute febrile illness (13) CVA (cerebral vascular accident) (14) Suspected 2019 novel coronavirus infection (15) Diabetes mellitus (16) HTN (hypertension) Tomi Ordoñez Jun 03, 2019 16:09
[2019-06-03 20:00] VITALS: BP 122/76
[2019-06-03] MEDS: Iron Sucrose 100 MG in NS 55 ML IV SCH (20:07)
--- NOTE | 2019-06-03 21:26 | Neurology Progress Note ---
Interim History Interim History ROS Limited/Unobtainable: Yes Interim History no seizures, covid + Objective Physical Exam Last Vital Signs Date Time Temp Pulse Resp B/P (MAP) Pulse Ox O2 Delivery O2 Flow Rate FiO2 06/03/19 20:00 97.8 83 18 122/76 (91) 97 06/03/19 20:00 Room Air 06/02/19 11:30 4 05/30/19 22:10 94 Laboratory Tests Test 06/03/19 04:00 White Blood Count 7.1 K/UL (4.8-10.8) Red Blood Count 3.76 M/UL (4.20-5.40) L Hemoglobin 11.1 G/DL (12.0-16.0) L Hematocrit 32.0 % (37.0-47.0) L Mean Corpuscular Volume 85 FL (80-99) Mean Corpuscular Hemoglobin 29.4 PG (27.0-31.0) Mean Corpuscular Hemoglobin Concent 34.5 G/DL (32.0-36.0) Red Cell Distribution Width 12.7 % (11.6-14.8) Platelet Count 183 K/UL (150-450) Mean Platelet Volume 8.3 FL (6.5-10.1) Neutrophils (%) (Auto) 80.5 % (45.0-75.0) H Lymphocytes (%) (Auto) 9.7 % (20.0-45.0) L Monocytes (%) (Auto) 9.6 % (1.0-10.0) Eosinophils (%) (Auto) 0.0 % (0.0-3.0) Basophils (%) (Auto) 0.2 % (0.0-2.0) Sodium Level 140 MMOL/L (136-145) Potassium Level 3.0 MMOL/L (3.5-5.1) L Chloride Level 105 MMOL/L (98-107) Carbon Dioxide Level 27 MMOL/L (21-32) Blood Urea Nitrogen 7 mg/dL (7-18) Creatinine 0.7 MG/DL (0.55-1.30) Estimat Glomerular Filtration Rate > 60 mL/min (>60) Glucose Level 172 MG/DL (74-106) H Calcium Level 8.2 MG/DL (8.5-10.1) L Neurologic Exam Objective lethargic, withdraws a to pain contracture in all 4. non verbal cc 36 min Impression/Recommendations Problems: (1) Episode of generalized weakness (2) Encephalopathy (3) Constipation (4) Hypercalcemia (5) Dysphagia (6) Altered level of consciousness (7) Toxic encephalopathy (8) Thrombocytopenia (9) GIB (gastrointestinal bleeding) (10) Lower GI bleed (11) Epilepsy (12) Acute febrile illness (13) CVA (cerebral vascular accident) (14) Suspected 2019 novel coronavirus infection (15) Diabetes mellitus (16) HTN (hypertension) Status: stable Diagnostic Impression ICU level of care MAp > 65 neuro checks q2h ATB per primary cont depakote 500 mg bid rule out covid19 del precautions no need for LP holding antiplatelets Larry Juarez MD Jun 03, 2019 21:26
[2019-06-04] VITALS: BP 124/78
[2019-06-04 04:00] VITALS: BP 121/57
--- NOTE | 2019-06-04 06:57 | General Progress Note ---
Assessment/Plan Problem List: (1) Suspected 2019 novel coronavirus infection ICD Codes: R68.89 - Other general symptoms and signs SNOMED: 919640834 (2) Lower GI bleed ICD Codes: K92.2 - Gastrointestinal hemorrhage, unspecified SNOMED: 59509075 (3) Thrombocytopenia ICD Codes: D69.6 - Thrombocytopenia, unspecified SNOMED: 672299076 (4) Diabetes mellitus ICD Codes: E11.9 - Type 2 diabetes mellitus without complications SNOMED: 21893700 (5) HTN (hypertension) ICD Codes: I10 - Essential (primary) hypertension SNOMED: 68343506 Status: stable Assessment/Plan: s/p colonoscopy last week now COVED +!! on Plaquenil per ID labs for am will fu Subjective ROS Limited/Unobtainable: No Allergies: Coded Allergies: IODINE (Verified Allergy, Unknown, 11/10/17) Objective Last 24 Hour Vital Signs Date Time Temp Pulse Resp B/P (MAP) Pulse Ox O2 Delivery O2 Flow Rate FiO2 06/04/19 04:00 Room Air 06/04/19 04:00 98.2 83 20 121/57 (78) 97 06/04/19 03:56 86 06/04/19 00:00 98.2 72 18 124/78 (93) 96 06/04/19 00:00 Room Air 06/03/19 23:56 85 06/03/19 20:00 97.8 83 18 122/76 (91) 97 06/03/19 20:00 Room Air 06/03/19 19:29 95 06/03/19 16:00 Room Air 06/03/19 16:00 74 06/03/19 15:08 98.8 76 20 129/66 (87) 95 06/03/19 12:00 86 06/03/19 12:00 Room Air 06/03/19 11:37 98.2 84 20 144/78 (100) 95 06/03/19 09:37 79 143/71 06/03/19 08:00 Room Air 06/03/19 08:00 97.7 79 20 143/71 (95) 97 06/03/19 08:00 74 Intake and Output 06/03/19 06/04/19 19:00 07:00 Intake Total 790 ml 660 ml Balance 790 ml 660 ml Intake Free Water 300 ml 150 ml IV Total 60 ml Tube Feeding 490 ml 450 ml # Voids 2 # Bowel Movements 4 2 Height (Feet): 5 Height (Inches): 3.00 Weight (Pounds): 151 General Appearance: no apparent distress EENT: normal ENT inspection Neck: supple Cardiovascular: normal rate Respiratory/Chest: decreased breath sounds Abdomen: normal bowel sounds, non tender, soft Extremities: non-tender Thang Doan MD Jun 04, 2019 06:57
[2019-06-04 08:00] VITALS: BP 151/75
[2019-06-04] MEDS: Pantoprazole Inj IVP SCH (08:22)
[2019-06-04] MEDS: Valproic Acid 250mg/5ml Liquid GT SCH ×2 (08:23→22:23)
--- NOTE | 2019-06-04 10:06 | General Progress Note ---
Assessment/Plan Status: stable Assessment/Plan: 74-year-old female from [facility] w/PMH CVA, dysphasia s/p PEG, dementia, epilepsy, ?DMT2 who presents with bright red blood per rectum, GIB. Patient came facility with multiple COVID positive patients, patient is pending COVID rule out. #Acute blood loss anemia #Acute GIB -continue inpatient level of care -cont. to monitor hgb -Colonoscopy 06/01 without active bleed -Surgery following -Cardio following #COVID exposure, second PCR positive #Fever -fever 102.7 rectal in ED -COVID positive -KUB negative -CXR ?right lung infiltrate -BCx pending -abx per ID: hydroxychloroquine 3 more days -Pulm consulted #?DMT2 -per chart review pt w/h/o DM -no medications seen in MAR from [facility] -Hgb A1C 5.9, not in diabetic range #HTN #HLD -holding ASA given acute GIB -cont. home coreg w/hold parameters #H/o Epilepsy #Seizures #?Dementia -no seizure activity reported by [facility] -cont. valproic acid -check valproic acid level -cont. home risperdol -Neurology consulted #Dysphagia s/p PEG -TF per nutrition #Hypokalemia -replace with KCl via G-tube, BMP in AM DVT PPx: SCDs given acute GIB Time spent on encounter: 35 mins, >50% on counseling, coordination of care with consulting MDs, RN, airfield manager. Time of note doesn't reflect time of encounter. Subjective ROS Limited/Unobtainable: Yes - Patient aphasic Allergies: Coded Allergies: IODINE (Verified Allergy, Unknown, 11/10/17) Subjective F/u for GIB/acute blood loss anemia, Second COVID-19 PCR positive, on plaquenil per ID. Patient a phasic, unable to obtain ROS. No acute events overnight. Patient appears comfortable at this time. Objective Last 24 Hour Vital Signs Date Time Temp Pulse Resp B/P (MAP) Pulse Ox O2 Delivery O2 Flow Rate FiO2 06/04/19 08:21 92 151/75 06/04/19 08:00 Room Air 06/04/19 08:00 99.2 92 20 151/75 (100) 97 06/04/19 04:00 Room Air 06/04/19 04:00 98.2 83 20 121/57 (78) 97 06/04/19 03:56 86 06/04/19 00:00 98.2 72 18 124/78 (93) 96 06/04/19 00:00 Room Air 06/03/19 23:56 85 06/03/19 20:00 97.8 83 18 122/76 (91) 97 06/03/19 20:00 Room Air 06/03/19 19:29 95 06/03/19 16:00 Room Air 06/03/19 16:00 74 06/03/19 15:08 98.8 76 20 129/66 (87) 95 06/03/19 12:00 86 06/03/19 12:00 Room Air 06/03/19 11:37 98.2 84 20 144/78 (100) 95 Intake and Output 06/03/19 06/04/19 19:00 07:00 Intake Total 790 ml 660 ml Balance 790 ml 660 ml Intake Free Water 300 ml 150 ml IV Total 60 ml Tube Feeding 490 ml 450 ml # Voids 2 # Bowel Movements 4 2 Laboratory Tests 06/04/19 04:00: Sodium Level [Pending], Potassium Level [Pending], Chloride Level [Pending], Carbon Dioxide Level [Pending], Blood Urea Nitrogen [Pending], Creatinine [ Pending], Estimat Glomerular Filtration Rate [Pending], Glucose Level [Pending] , Calcium Level [Pending] Height (Feet): 5 Height (Inches): 3.00 Weight (Pounds): 151 Objective General Appearance: alert, confused Cardiovascular: normal rate, regular rhythm Respiratory/Chest: lungs clear, normal breath sounds Abdomen: non tender, soft Ext: no edema Tori Hill M.D. Jun 04, 2019 10:06
[2019-06-04 11:08] LABS: BASOPHILS % (AUTO) 0.5 % (0.0-2.0); EOSINOPHILS % (AUTO) 0.1 % (0.0-3.0); HEMATOCRIT 30.4 % (37.0-47.0); HEMOGLOBIN 10.5 G/DL (12.0-16.0); LYMPHOCYTES % (AUTO) 5.1 % (20.0-45.0); MEAN CORPUSCULAR VOLUME 86 FL (80-99); MONOCYTES % (AUTO) 10.5 % (1.0-10.0); NEUTROPHILS % (AUTO) 83.9 % (45.0-75.0); PLATELET COUNT 192 K/UL (150-450); RED BLOOD COUNT 3.54 M/UL (4.20-5.40); RED CELL DISTRIBUTION WIDTH 13.3 % (11.6-14.8); WHITE BLOOD COUNT 7.8 K/UL (4.8-10.8)
[2019-06-04 11:18] LABS: ANION GAP 12 mmol/L (5-15); BLOOD UREA NITROGEN 12 mg/dL (7-18); CALCIUM 9.1 MG/DL (8.5-10.1); CARBON DIOXIDE 25 MMOL/L (21-32); CHLORIDE 106 MMOL/L (98-107); CREATININE 0.7 MG/DL (0.55-1.30); POTASSIUM 3.4 MMOL/L (3.5-5.1); SODIUM 143 MMOL/L (136-145)
--- NOTE | 2019-06-04 11:48 | Pulmonology Progress Note ---
Assessment/Plan Assessment/Plan IMPRESSION: 1. Rectal bleeding. 2. Right lung pneumonia. 3. CVA. 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 DISCUSSION: Repeat COVID 19 positive I will follow as turn operator. Abx per ID Continue oxygen prn and pulmonary hygiene. Subjective Interval Events: None new Constitutional: Reports: no symptoms HEENT: Repors: no symptoms Respiratory: Reports: no symptoms Cardiovascular: Reports: no symptoms Gastrointestinal/Abdominal: Reports: no symptoms Allergies: Coded Allergies: IODINE (Verified Allergy, Unknown, 11/10/17) Objective Last 24 Hour Vital Signs Date Time Temp Pulse Resp B/P (MAP) Pulse Ox O2 Delivery O2 Flow Rate FiO2 06/04/19 08:21 92 151/75 06/04/19 08:00 95 06/04/19 08:00 Room Air 06/04/19 08:00 99.2 92 20 151/75 (100) 97 06/04/19 04:00 Room Air 06/04/19 04:00 98.2 83 20 121/57 (78) 97 06/04/19 03:56 86 06/04/19 00:00 98.2 72 18 124/78 (93) 96 06/04/19 00:00 Room Air 06/03/19 23:56 85 06/03/19 20:00 97.8 83 18 122/76 (91) 97 06/03/19 20:00 Room Air 06/03/19 19:29 95 06/03/19 16:00 Room Air 06/03/19 16:00 74 06/03/19 15:08 98.8 76 20 129/66 (87) 95 06/03/19 12:00 86 06/03/19 12:00 Room Air Intake and Output 06/03/19 06/04/19 19:00 07:00 Intake Total 790 ml 660 ml Balance 790 ml 660 ml Intake Free Water 300 ml 150 ml IV Total 60 ml Tube Feeding 490 ml 450 ml # Voids 2 # Bowel Movements 4 2 General Appearance: no acute distress HEENT: normocephalic Respiratory/Chest: chest wall non-tender, lungs clear Cardiovascular: normal peripheral pulses Abdomen: normal bowel sounds Microbiology Date/Time Source Procedure Growth Status 06/01/19 14:00 Nasopharynx Coronavirus COVID-19 PCR (HOME) - Final Complete Laboratory Tests 06/04/19 10:34: White Blood Count 7.8, Red Blood Count 3.54L, Hemoglobin 10.5L, Hematocrit 30.4L , Mean Corpuscular Volume 86, Mean Corpuscular Hemoglobin 29.7, Mean Corpuscular Hemoglobin Concent 34.6, Red Cell Distribution Width 13.3, Platelet Count 192, Mean Platelet Volume 8.3, Neutrophils (%) (Auto) 83.9H, Lymphocytes ( %) (Auto) 5.1L, Monocytes (%) (Auto) 10.5H, Eosinophils (%) (Auto) 0.1, Basophils (%) (Auto) 0.5, Sodium Level 143, Potassium Level 3.4L, Chloride Level 106, Carbon Dioxide Level 25, Anion Gap 12, Blood Urea Nitrogen 12, Creatinine 0.7, Estimat Glomerular Filtration Rate > 60, Glucose Level 191H, Calcium Level 9.1 Current Medications Medications (Trade) Dose Ordered Sig/Claritza Route PRN Reason Start Time Stop Time Status Last Admin Dose Admin Acetaminophen (Tylenol) 650 mg Q4H PRN GT Mild Pain (Pain Scale 1-3) 06/02/19 01:00 06/29/19 13:29 Acetaminophen (Tylenol) 650 mg Q4H PRN GT T>100.4 06/02/19 01:00 06/29/19 13:29 Amlodipine Besylate (Norvasc) 5 mg DAILY GT 06/02/19 09:00 06/30/19 08:59 06/04/19 08:21 Dextrose (Dextrose 50%) 25 ml Q30M PRN IV Hypoglycemia 06/02/19 00:00 08/28/19 13:29 Dextrose (Dextrose 50%) 50 ml Q30M PRN IV Hypoglycemia 06/02/19 00:00 08/28/19 13:29 Escitalopram Oxalate (Lexapro) 10 mg DAILY GT 06/02/19 09:00 06/30/19 08:59 06/04/19 08:17 Hydroxychloroquine Sulfate (Plaquenil) 200 mg BID ORAL 06/04/19 09:00 06/07/19 18:01 06/04/19 08:18 Iron Sucrose 100 mg/Sodium Chloride 60 ml @ 240 mls/hr BEDTIME IV 06/02/19 21:00 06/05/19 21:14 06/03/19 20:07 Magnesium Hydroxide (Mom) 30 ml DAILYPRN PRN ORAL Constipation 06/02/19 09:00 06/29/19 08:59 Pantoprazole (Protonix) 40 mg DAILY IVP 06/02/19 09:00 06/30/19 10:59 06/04/19 08:22 Pravastatin Sodium (Pravachol) 80 mg BEDTIME GT 06/02/19 21:00 06/29/19 20:59 06/03/19 20:07 Risperidone (RisperDAL) 1 mg BID GT 06/02/19 09:00 07/14/19 17:59 06/04/19 08:21 Tramadol HCl (Ultram) 25 mg Q8H PRN GT Moderate Pain (Pain Scale 4-6) 06/02/19 01:30 06/06/19 17:29 Valproic Acid (Depakene) 250 mg Q12HR GT 06/02/19 09:00 06/29/19 20:59 06/04/19 08:23 Horace Landaverde MD Jun 04, 2019 11:48
[2019-06-04 12:00] VITALS: BP 125/63
--- NOTE | 2019-06-04 12:15 | Infectious Diseases Prog Note ---
"Assessment/Plan Assessment/Plan antibiotics : hydroxychloroquine ..20 - A 1. COVID 19 pneumonia 2. fever improving 3. GI bleeding 4. diabetes mellitus 5. epilepsy 6. dementia 7. CVA 8. + blood cultures with coag neg staph | diphtheroids likely contaminated P 1. continue hydroxychloroquine 3 more days 2. will follow up cultures 3. continue isolation Subjective ROS Limited/Unobtainable: Yes Allergies: Coded Allergies: IODINE (Verified Allergy, Unknown, 11/10/17) Objective Vital Signs Last 24 Hour Vital Signs Date Time Temp Pulse Resp B/P (MAP) Pulse Ox O2 Delivery O2 Flow Rate FiO2 06/04/19 08:21 92 151/75 06/04/19 08:00 95 06/04/19 08:00 Room Air 06/04/19 08:00 99.2 92 20 151/75 (100) 97 06/04/19 04:00 Room Air 06/04/19 04:00 98.2 83 20 121/57 (78) 97 06/04/19 03:56 86 06/04/19 00:00 98.2 72 18 124/78 (93) 96 06/04/19 00:00 Room Air 06/03/19 23:56 85 06/03/19 20:00 97.8 83 18 122/76 (91) 97 06/03/19 20:00 Room Air 06/03/19 19:29 95 06/03/19 16:00 Room Air 06/03/19 16:00 74 06/03/19 15:08 98.8 76 20 129/66 (87) 95 Height (Feet): 5 Height (Inches): 3.00 Weight (Pounds): 153 Microbiology Date/Time Source Procedure Growth Status 06/01/19 14:00 Nasopharynx Coronavirus COVID-19 PCR (HOME) - Final Complete Laboratory Tests Test 06/04/19 10:34 White Blood Count 7.8 K/UL (4.8-10.8) Red Blood Count 3.54 M/UL (4.20-5.40) L Hemoglobin 10.5 G/DL (12.0-16.0) L Hematocrit 30.4 % (37.0-47.0) L Mean Corpuscular Volume 86 FL (80-99) Mean Corpuscular Hemoglobin 29.7 PG (27.0-31.0) Mean Corpuscular Hemoglobin Concent 34.6 G/DL (32.0-36.0) Red Cell Distribution Width 13.3 % (11.6-14.8) Platelet Count 192 K/UL (150-450) Mean Platelet Volume 8.3 FL (6.5-10.1) Neutrophils (%) (Auto) 83.9 % (45.0-75.0) H Lymphocytes (%) (Auto) 5.1 % (20.0-45.0) L Monocytes (%) (Auto) 10.5 % (1.0-10.0) H Eosinophils (%) (Auto) 0.1 % (0.0-3.0) Basophils (%) (Auto) 0.5 % (0.0-2.0) Sodium Level 143 MMOL/L (136-145) Potassium Level 3.4 MMOL/L (3.5-5.1) L Chloride Level 106 MMOL/L (98-107) Carbon Dioxide Level 25 MMOL/L (21-32) Anion Gap 12 mmol/L (5-15) Blood Urea Nitrogen 12 mg/dL (7-18) Creatinine 0.7 MG/DL (0.55-1.30) Estimat Glomerular Filtration Rate > 60 mL/min (>60) Glucose Level 191 MG/DL (74-106) H Calcium Level 9.1 MG/DL (8.5-10.1) Current Medications Medications (Trade) Dose Ordered Sig/Claritza Route PRN Reason Start Time Stop Time Status Last Admin Dose Admin Acetaminophen (Tylenol) 650 mg Q4H PRN GT Mild Pain (Pain Scale 1-3) 06/02/19 01:00 06/29/19 13:29 Acetaminophen (Tylenol) 650 mg Q4H PRN GT T>100.4 06/02/19 01:00 06/29/19 13:29 Amlodipine Besylate (Norvasc) 5 mg DAILY GT 06/02/19 09:00 06/30/19 08:59 06/04/19 08:21 Dextrose (Dextrose 50%) 25 ml Q30M PRN IV Hypoglycemia 06/02/19 00:00 08/28/19 13:29 Dextrose (Dextrose 50%) 50 ml Q30M PRN IV Hypoglycemia 06/02/19 00:00 08/28/19 13:29 Escitalopram Oxalate (Lexapro) 10 mg DAILY GT 06/02/19 09:00 06/30/19 08:59 06/04/19 08:17 Hydroxychloroquine Sulfate (Plaquenil) 200 mg BID ORAL 06/04/19 09:00 06/07/19 18:01 06/04/19 08:18 Iron Sucrose 100 mg/Sodium Chloride 60 ml @ 240 mls/hr BEDTIME IV 06/02/19 21:00 06/05/19 21:14 06/03/19 20:07 Magnesium Hydroxide (Mom) 30 ml DAILYPRN PRN ORAL Constipation 06/02/19 09:00 06/29/19 08:59 Pantoprazole (Protonix) 40 mg DAILY IVP 06/02/19 09:00 06/30/19 10:59 06/04/19 08:22 Pravastatin Sodium (Pravachol) 80 mg BEDTIME GT 06/02/19 21:00 06/29/19 20:59 06/03/19 20:07 Risperidone (RisperDAL) 1 mg BID GT 06/02/19 09:00 07/14/19 17:59 06/04/19 08:21 Tramadol HCl (Ultram) 25 mg Q8H PRN GT Moderate Pain (Pain Scale 4-6) 06/02/19 01:30 06/06/19 17:29 Valproic Acid (Depakene) 250 mg Q12HR GT 06/02/19 09:00 06/29/19 20:59 06/04/19 08:23 Radha Dunham MD Jun 04, 2019 12:15"
[2019-06-04 16:00] VITALS: BP 140/50
[2019-06-04] MEDS ORDERED: Tubing IV Secondary IV ONE (16:56)
--- NOTE | 2019-06-04 17:15 | Cardiac Electrophysiology PN ---
Assessment/Plan Assessment/Plan 1. Bradycardia. Better off Coreg. Echo is pending as COVID still positive 2. Hypertension, on amlodipine 5 daily 3. Hyperlipidemia, 4. Rectal bleeding. S/P Colonoscopy by Dr. Doan that showed diverticulitis 5. History of CVA. 6. Dysphagia, status post G-tube placement. 7. Underlying pneumonia. COVID-19 PCR was negative on 05/30/19, but positive on 06/01/19 Started on Plaquenil. QTc today is [address] Bray Subjective Subjective Second Covid also came back positive.In SR in isolation Objective Last 24 Hour Vital Signs Date Time Temp Pulse Resp B/P (MAP) Pulse Ox O2 Delivery O2 Flow Rate FiO2 06/04/19 16:00 Room Air 06/04/19 16:00 90 06/04/19 12:00 Room Air 06/04/19 12:00 98 06/04/19 12:00 98.6 92 20 125/63 (83) 97 06/04/19 08:21 92 151/75 06/04/19 08:00 95 06/04/19 08:00 Room Air 06/04/19 08:00 99.2 92 20 151/75 (100) 97 06/04/19 04:00 Room Air 06/04/19 04:00 98.2 83 20 121/57 (78) 97 06/04/19 03:56 86 06/04/19 00:00 98.2 72 18 124/78 (93) 96 06/04/19 00:00 Room Air 06/03/19 23:56 85 06/03/19 20:00 97.8 83 18 122/76 (91) 97 06/03/19 20:00 Room Air 06/03/19 19:29 95 Intake and Output 06/03/19 06/04/19 19:00 07:00 Intake Total 790 ml 660 ml Balance 790 ml 660 ml Intake Free Water 300 ml 150 ml IV Total 60 ml Tube Feeding 490 ml 450 ml # Voids 2 # Bowel Movements 4 2 Laboratory Tests Test 06/04/19 10:34 White Blood Count 7.8 K/UL (4.8-10.8) Red Blood Count 3.54 M/UL (4.20-5.40) L Hemoglobin 10.5 G/DL (12.0-16.0) L Hematocrit 30.4 % (37.0-47.0) L Mean Corpuscular Volume 86 FL (80-99) Mean Corpuscular Hemoglobin 29.7 PG (27.0-31.0) Mean Corpuscular Hemoglobin Concent 34.6 G/DL (32.0-36.0) Red Cell Distribution Width 13.3 % (11.6-14.8) Platelet Count 192 K/UL (150-450) Mean Platelet Volume 8.3 FL (6.5-10.1) Neutrophils (%) (Auto) 83.9 % (45.0-75.0) H Lymphocytes (%) (Auto) 5.1 % (20.0-45.0) L Monocytes (%) (Auto) 10.5 % (1.0-10.0) H Eosinophils (%) (Auto) 0.1 % (0.0-3.0) Basophils (%) (Auto) 0.5 % (0.0-2.0) Sodium Level 143 MMOL/L (136-145) Potassium Level 3.4 MMOL/L (3.5-5.1) L Chloride Level 106 MMOL/L (98-107) Carbon Dioxide Level 25 MMOL/L (21-32) Anion Gap 12 mmol/L (5-15) Blood Urea Nitrogen 12 mg/dL (7-18) Creatinine 0.7 MG/DL (0.55-1.30) Estimat Glomerular Filtration Rate > 60 mL/min (>60) Glucose Level 191 MG/DL (74-106) H Calcium Level 9.1 MG/DL (8.5-10.1) Objective HEAD AND NECK: No JVD, on room air LUNGS: Coarse rhonchi. CARDIOVASCULAR: Regular S1 and S2. Bradycardic. ABDOMEN: Soft and status post G-tube. EXTREMITIES: No pitting edema. Telly Gottlieb MD Jun 04, 2019 17:15
--- NOTE | 2019-06-04 19:01 | Neurology Progress Note ---
Interim History Interim History ROS Limited/Unobtainable: Yes - Patient aphasic Interim History no seizures, still in resp distress Objective Physical Exam Last Vital Signs Date Time Temp Pulse Resp B/P (MAP) Pulse Ox O2 Delivery O2 Flow Rate FiO2 06/04/19 16:00 98.6 95 20 140/50 (80) 97 06/04/19 16:00 Room Air 06/02/19 11:30 4 05/30/19 22:10 94 Laboratory Tests Test 06/04/19 10:34 White Blood Count 7.8 K/UL (4.8-10.8) Red Blood Count 3.54 M/UL (4.20-5.40) L Hemoglobin 10.5 G/DL (12.0-16.0) L Hematocrit 30.4 % (37.0-47.0) L Mean Corpuscular Volume 86 FL (80-99) Mean Corpuscular Hemoglobin 29.7 PG (27.0-31.0) Mean Corpuscular Hemoglobin Concent 34.6 G/DL (32.0-36.0) Red Cell Distribution Width 13.3 % (11.6-14.8) Platelet Count 192 K/UL (150-450) Mean Platelet Volume 8.3 FL (6.5-10.1) Neutrophils (%) (Auto) 83.9 % (45.0-75.0) H Lymphocytes (%) (Auto) 5.1 % (20.0-45.0) L Monocytes (%) (Auto) 10.5 % (1.0-10.0) H Eosinophils (%) (Auto) 0.1 % (0.0-3.0) Basophils (%) (Auto) 0.5 % (0.0-2.0) Sodium Level 143 MMOL/L (136-145) Potassium Level 3.4 MMOL/L (3.5-5.1) L Chloride Level 106 MMOL/L (98-107) Carbon Dioxide Level 25 MMOL/L (21-32) Anion Gap 12 mmol/L (5-15) Blood Urea Nitrogen 12 mg/dL (7-18) Creatinine 0.7 MG/DL (0.55-1.30) Estimat Glomerular Filtration Rate > 60 mL/min (>60) Glucose Level 191 MG/DL (74-106) H Calcium Level 9.1 MG/DL (8.5-10.1) Neurologic Exam Objective lethargic, withdraws a to pain contracture in all 4. non verbal cc 36 min Impression/Recommendations Problems: (1) Episode of generalized weakness (2) Encephalopathy (3) Constipation (4) Hypercalcemia (5) Dysphagia (6) Altered level of consciousness (7) Toxic encephalopathy (8) Thrombocytopenia (9) GIB (gastrointestinal bleeding) (10) Lower GI bleed (11) Epilepsy (12) Acute febrile illness (13) CVA (cerebral vascular accident) (14) Suspected 2019 novel coronavirus infection (15) Diabetes mellitus (16) HTN (hypertension) Status: stable Diagnostic Impression ICU level of care MAp > 65 neuro checks q2h ATB per primary cont depakote 500 mg bid rule out covid19 del precautions no need for LP holding antiplatelets Larry Juarez MD Jun 04, 2019 19:01
--- NOTE | 2019-06-04 19:37 | Surgery Progress Note ---
Surgery Progress Note Subjective Additional Comments no acute events labs stable exam stable no n/v/c/f/ Objective Last 24 Hour Vital Signs Date Time Temp Pulse Resp B/P (MAP) Pulse Ox O2 Delivery O2 Flow Rate FiO2 06/04/19 16:00 98.6 95 20 140/50 (80) 97 06/04/19 16:00 Room Air 06/04/19 16:00 90 06/04/19 12:00 Room Air 06/04/19 12:00 98 06/04/19 12:00 98.6 92 20 125/63 (83) 97 06/04/19 08:21 92 151/75 06/04/19 08:00 95 06/04/19 08:00 Room Air 06/04/19 08:00 99.2 92 20 151/75 (100) 97 06/04/19 04:00 Room Air 06/04/19 04:00 98.2 83 20 121/57 (78) 97 06/04/19 03:56 86 06/04/19 00:00 98.2 72 18 124/78 (93) 96 06/04/19 00:00 Room Air 06/03/19 23:56 85 06/03/19 20:00 97.8 83 18 122/76 (91) 97 06/03/19 20:00 Room Air I&O Intake and Output 06/03/19 06/04/19 19:00 07:00 Intake Total 790 ml 660 ml Balance 790 ml 660 ml Intake Free Water 300 ml 150 ml IV Total 60 ml Tube Feeding 490 ml 450 ml # Voids 2 # Bowel Movements 4 2 Dressing: dry Wound: clean Cardiovascular: RSR Respiratory: decreased breath sounds Abdomen: soft, non-tender, present bowel sounds Extremities: no cyanosis Laboratory Tests Test 06/04/19 10:34 White Blood Count 7.8 K/UL (4.8-10.8) Red Blood Count 3.54 M/UL (4.20-5.40) L Hemoglobin 10.5 G/DL (12.0-16.0) L Hematocrit 30.4 % (37.0-47.0) L Mean Corpuscular Volume 86 FL (80-99) Mean Corpuscular Hemoglobin 29.7 PG (27.0-31.0) Mean Corpuscular Hemoglobin Concent 34.6 G/DL (32.0-36.0) Red Cell Distribution Width 13.3 % (11.6-14.8) Platelet Count 192 K/UL (150-450) Mean Platelet Volume 8.3 FL (6.5-10.1) Neutrophils (%) (Auto) 83.9 % (45.0-75.0) H Lymphocytes (%) (Auto) 5.1 % (20.0-45.0) L Monocytes (%) (Auto) 10.5 % (1.0-10.0) H Eosinophils (%) (Auto) 0.1 % (0.0-3.0) Basophils (%) (Auto) 0.5 % (0.0-2.0) Sodium Level 143 MMOL/L (136-145) Potassium Level 3.4 MMOL/L (3.5-5.1) L Chloride Level 106 MMOL/L (98-107) Carbon Dioxide Level 25 MMOL/L (21-32) Anion Gap 12 mmol/L (5-15) Blood Urea Nitrogen 12 mg/dL (7-18) Creatinine 0.7 MG/DL (0.55-1.30) Estimat Glomerular Filtration Rate > 60 mL/min (>60) Glucose Level 191 MG/DL (74-106) H Calcium Level 9.1 MG/DL (8.5-10.1) Plan Problems: (1) Episode of generalized weakness (2) Encephalopathy (3) Constipation (4) Hypercalcemia (5) Dysphagia (6) Altered level of consciousness (7) Toxic encephalopathy (8) Thrombocytopenia (9) GIB (gastrointestinal bleeding) Assessment & Plan: Upper GI lavage with g tube no blood likely lower gi bleed diverticuli? appreciate GI input s/p scope no acute findings okay for diet trend h/h abd exam benign no acute surgical intervention planned will follow with recs thank you (10) Lower GI bleed Assessment & Plan: Findings: There is a gastrostomy tube in place. The bowel gas pattern is unremarkable. No masses or unusual calcifications. There are degenerative changes of the lumbar spine Impression: No acute process (11) Epilepsy (12) Acute febrile illness (13) CVA (cerebral vascular accident) (14) Suspected 2018 novel coronavirus infection (15) Diabetes mellitus (16) HTN (hypertension) Tomi Ordoñez Jun 04, 2019 19:37
[2019-06-04 20:00] VITALS: BP 136/78
[2019-06-04] MEDS: Iron Sucrose 100 MG in NS 55 ML IV SCH (22:23)
[2019-06-05] VITALS: BP 141/81
[2019-06-05 04:00] VITALS: BP 156/80
--- NOTE | 2019-06-05 06:43 | General Progress Note ---
Assessment/Plan Problem List: (1) Suspected 2019 novel coronavirus infection ICD Codes: R68.89 - Other general symptoms and signs SNOMED: 583978369 (2) Lower GI bleed ICD Codes: K92.2 - Gastrointestinal hemorrhage, unspecified SNOMED: 32346830 (3) Thrombocytopenia ICD Codes: D69.6 - Thrombocytopenia, unspecified SNOMED: 961306434 (4) Diabetes mellitus ICD Codes: E11.9 - Type 2 diabetes mellitus without complications SNOMED: 90468196 (5) HTN (hypertension) ICD Codes: I10 - Essential (primary) hypertension SNOMED: 92933267 Status: stable Assessment/Plan: s/p colonoscopy last week now COVED +!! on Plaquenil per ID labs for am will fu Subjective ROS Limited/Unobtainable: No Allergies: Coded Allergies: IODINE (Verified Allergy, Unknown, 11/10/17) Objective Last 24 Hour Vital Signs Date Time Temp Pulse Resp B/P (MAP) Pulse Ox O2 Delivery O2 Flow Rate FiO2 06/05/19 04:00 Room Air 06/05/19 04:00 97.9 91 22 156/80 (105) 98 06/05/19 04:00 81 06/05/19 00:00 96 06/05/19 00:00 98.1 84 20 141/81 (101) 96 06/05/19 00:00 Room Air 06/04/19 20:00 95 06/04/19 20:00 98.6 95 20 136/78 (97) 97 06/04/19 20:00 Room Air 06/04/19 16:00 98.6 95 20 140/50 (80) 97 06/04/19 16:00 Room Air 06/04/19 16:00 90 06/04/19 12:00 Room Air 06/04/19 12:00 98 06/04/19 12:00 98.6 92 20 125/63 (83) 97 06/04/19 08:21 92 151/75 06/04/19 08:00 95 06/04/19 08:00 Room Air 06/04/19 08:00 99.2 92 20 151/75 (100) 97 Intake and Output 06/04/19 06/05/19 19:00 07:00 Intake Total 850 ml 920 ml Balance 850 ml 920 ml Intake Free Water 200 ml 200 ml IV Total 60 ml Tube Feeding 650 ml 660 ml # Voids 1 1 # Bowel Movements 4 2 Laboratory Tests 06/04/19 10:34: White Blood Count 7.8, Red Blood Count 3.54L, Hemoglobin 10.5L, Hematocrit 30.4L , Mean Corpuscular Volume 86, Mean Corpuscular Hemoglobin 29.7, Mean Corpuscular Hemoglobin Concent 34.6, Red Cell Distribution Width 13.3, Platelet Count 192, Mean Platelet Volume 8.3, Neutrophils (%) (Auto) 83.9H, Lymphocytes ( %) (Auto) 5.1L, Monocytes (%) (Auto) 10.5H, Eosinophils (%) (Auto) 0.1, Basophils (%) (Auto) 0.5, Sodium Level 143, Potassium Level 3.4L, Chloride Level 106, Carbon Dioxide Level 25, Anion Gap 12, Blood Urea Nitrogen 12, Creatinine 0.7, Estimat Glomerular Filtration Rate > 60, Glucose Level 191H, Calcium Level 9.1 Height (Feet): 5 Height (Inches): 3.00 Weight (Pounds): 153 General Appearance: alert EENT: normal ENT inspection Neck: supple Cardiovascular: normal rate Respiratory/Chest: decreased breath sounds Abdomen: normal bowel sounds, non tender, soft Extremities: non-tender Thang Doan MD Jun 05, 2019 06:43
[2019-06-05 07:36] LABS: BASOPHILS % (AUTO) 0.3 % (0.0-2.0); EOSINOPHILS % (AUTO) 0.3 % (0.0-3.0); HEMATOCRIT 29.2 % (37.0-47.0); LYMPHOCYTES % (AUTO) 12.4 % (20.0-45.0); MEAN CORPUSCULAR VOLUME 86 FL (80-99); MONOCYTES % (AUTO) 13.8 % (1.0-10.0); NEUTROPHILS % (AUTO) 73.2 % (45.0-75.0); PLATELET COUNT 208 K/UL (150-450); RED BLOOD COUNT 3.41 M/UL (4.20-5.40); RED CELL DISTRIBUTION WIDTH 13.5 % (11.6-14.8); WHITE BLOOD COUNT 6.3 K/UL (4.8-10.8)
[2019-06-05 08:00] VITALS: BP 150/80
[2019-06-05 08:17] LABS: ALANINE AMINOTRANSFERASE 26 U/L (12-78); ALBUMIN 2.2 G/DL (3.4-5.0); ALBUMIN/GLOBULIN RATIO 0.6 (1.0-2.7); ALKALINE PHOSPHATASE 40 U/L (46-116); ANION GAP 9 mmol/L (5-15); ASPARTATE AMINO TRANSFERASE 41 U/L (15-37); BILIRUBIN,TOTAL 0.2 MG/DL (0.2-1.0); BLOOD UREA NITROGEN 12 mg/dL (7-18); CALCIUM 8.7 MG/DL (8.5-10.1); CARBON DIOXIDE 27 MMOL/L (21-32); CHLORIDE 107 MMOL/L (98-107); CREATININE 0.5 MG/DL (0.55-1.30); POTASSIUM 4.1 MMOL/L (3.5-5.1); SODIUM 143 MMOL/L (136-145)
--- NOTE | 2019-06-05 09:46 | General Progress Note ---
Assessment/Plan Status: stable Assessment/Plan: 74-year-old female from [facility] w/PMH CVA, dysphasia s/p PEG, dementia, epilepsy, ?DMT2 who presents with bright red blood per rectum, GIB. Patient came facility with multiple COVID positive patients, pt is COVID positive. #Acute blood loss anemia - stable #Acute GIB -continue inpatient level of care -cont. to monitor hgb -Colonoscopy 06/01 without active bleed -Surgery following -Cardio following -GI following #COVID exposure, second PCR positive #Fever #elevated D-Dimer #Staph bacteremia - suspect contaminant -fever 102.7 rectal in ED -COVID positive -KUB negative -CXR right lung infiltrate -BCx staph bacteremia -Pulm consulted -d/w GI, holding anticoagulation given acute GIB -echo ordered, pending -d/w ID, bacteremia likely contaminant, repeat BCx ordered -abx per ID: hydroxychloroquine 2 more days #?DMT2 -per chart review pt w/h/o DM -no medications seen in MAR from [place] -Hgb A1C 5.9, not in diabetic range #HTN #HLD -holding ASA given acute GIB -home coreg held 2/2 bradycardia -amlodipine increased from 5 to 10 mg -cardio, Dr. Gottlieb. following, recs appreciated #H/o Epilepsy #Seizures #Dementia -no seizure activity reported by [facility] -cont. valproic acid -check valproic acid level -cont. home risperdol -Neurology consulted #Dysphagia s/p PEG -TF per nutrition #Hypokalemia -replace with KCl via G-tube, BMP in AM DVT PPx: SCDs given acute GIB Time spent on encounter: 35 mins, >50% on counseling, coordination of care with consulting MDs, RN, regional merchandising manager. Time of note doesn't reflect time of encounter. Subjective ROS Limited/Unobtainable: Yes - aphasic Allergies: Coded Allergies: IODINE (Verified Allergy, Unknown, 11/10/17) Subjective F/u for acute blood loss anemia, Second COVID-19 PCR positive, staph bacteremia. Echo pending. Pt non-communicative at this time. Objective Last 24 Hour Vital Signs Date Time Temp Pulse Resp B/P (MAP) Pulse Ox O2 Delivery O2 Flow Rate FiO2 06/05/19 04:00 Room Air 06/05/19 04:00 97.9 91 22 156/80 (105) 98 06/05/19 04:00 81 06/05/19 00:00 96 06/05/19 00:00 98.1 84 20 141/81 (101) 96 06/05/19 00:00 Room Air 06/04/19 20:00 95 06/04/19 20:00 98.6 95 20 136/78 (97) 97 06/04/19 20:00 Room Air 06/04/19 16:00 98.6 95 20 140/50 (80) 97 06/04/19 16:00 Room Air 06/04/19 16:00 90 06/04/19 12:00 Room Air 06/04/19 12:00 98 06/04/19 12:00 98.6 92 20 125/63 (83) 97 Intake and Output 06/04/19 06/05/19 19:00 07:00 Intake Total 850 ml 980 ml Balance 850 ml 980 ml Intake Free Water 200 ml 200 ml IV Total 60 ml Tube Feeding 650 ml 720 ml # Voids 1 1 # Bowel Movements 4 2 Laboratory Tests 06/04/19 10:34: White Blood Count 7.8, Red Blood Count 3.54L, Hemoglobin 10.5L, Hematocrit 30.4L , Mean Corpuscular Volume 86, Mean Corpuscular Hemoglobin 29.7, Mean Corpuscular Hemoglobin Concent 34.6, Red Cell Distribution Width 13.3, Platelet Count 192, Mean Platelet Volume 8.3, Neutrophils (%) (Auto) 83.9H, Lymphocytes ( %) (Auto) 5.1L, Monocytes (%) (Auto) 10.5H, Eosinophils (%) (Auto) 0.1, Basophils (%) (Auto) 0.5, Sodium Level 143, Potassium Level 3.4L, Chloride Level 106, Carbon Dioxide Level 25, Anion Gap 12, Blood Urea Nitrogen 12, Creatinine 0.7, Estimat Glomerular Filtration Rate > 60, Glucose Level 191H, Calcium Level 9.1 06/05/19 06:49: White Blood Count 6.3, Red Blood Count 3.41L, Hemoglobin 10.0L, Hematocrit 29.2L , Mean Corpuscular Volume 86, Mean Corpuscular Hemoglobin 29.4, Mean Corpuscular Hemoglobin Concent 34.3, Red Cell Distribution Width 13.5, Platelet Count 208, Mean Platelet Volume 7.6, Neutrophils (%) (Auto) 73.2, Lymphocytes (% ) (Auto) 12.4L, Monocytes (%) (Auto) 13.8H, Eosinophils (%) (Auto) 0.3, Basophils (%) (Auto) 0.3, Sodium Level 143, Potassium Level 4.1, Chloride Level 107, Carbon Dioxide Level 27, Anion Gap 9, Blood Urea Nitrogen 12, Creatinine 0.5L, Estimat Glomerular Filtration Rate > 60, Glucose Level 137H, Calcium Level 8.7, Total Bilirubin 0.2, Aspartate Amino Transf (AST/SGOT) 41H, Alanine Aminotransferase (ALT/SGPT) 26, Alkaline Phosphatase 40L, Total Protein 5.8L, Albumin 2.2L, Globulin 3.6, Albumin/Globulin Ratio 0.6L Height (Feet): 5 Height (Inches): 3.00 Weight (Pounds): 153 Objective General Appearance: NAD, confused, somnolent Cardiovascular: normal rate, regular rhythm Respiratory/Chest: lungs clear, normal breath sounds, no accessory muscle usage Abdomen: non tender, soft, +PEG c/d/i Ext: no edema Tori Hill M.D. Jun 05, 2019 09:46
[2019-06-05] MEDS: Valproic Acid 250mg/5ml Liquid GT SCH ×2 (09:48→20:12)
[2019-06-05] MEDS: Pantoprazole Inj IVP SCH (09:48)
--- NOTE | 2019-06-05 11:14 | Pulmonology Progress Note ---
Assessment/Plan Assessment/Plan IMPRESSION: 1. Rectal bleeding. 2. Right lung pneumonia. 3. CVA. 4. intermediate resident. 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 Abx per ID Continue oxygen prn and pulmonary hygiene. Subjective Interval Events: None new Constitutional: Reports: no symptoms HEENT: Repors: no symptoms Respiratory: Reports: no symptoms Cardiovascular: Reports: no symptoms Allergies: Coded Allergies: IODINE (Verified Allergy, Unknown, 11/10/17) Objective Last 24 Hour Vital Signs Date Time Temp Pulse Resp B/P (MAP) Pulse Ox O2 Delivery O2 Flow Rate FiO2 06/05/19 09:48 80 150/80 06/05/19 08:00 Room Air 06/05/19 08:00 98.2 80 21 150/80 (103) 98 06/05/19 07:58 76 06/05/19 04:00 Room Air 06/05/19 04:00 97.9 91 22 156/80 (105) 98 06/05/19 04:00 81 06/05/19 00:00 96 06/05/19 00:00 98.1 84 20 141/81 (101) 96 06/05/19 00:00 Room Air 06/04/19 20:00 95 06/04/19 20:00 98.6 95 20 136/78 (97) 97 06/04/19 20:00 Room Air 06/04/19 16:00 98.6 95 20 140/50 (80) 97 06/04/19 16:00 Room Air 06/04/19 16:00 90 06/04/19 12:00 Room Air 06/04/19 12:00 98 06/04/19 12:00 98.6 92 20 125/63 (83) 97 Intake and Output 06/04/19 06/05/19 19:00 07:00 Intake Total 850 ml 980 ml Balance 850 ml 980 ml Intake Free Water 200 ml 200 ml IV Total 60 ml Tube Feeding 650 ml 720 ml # Voids 1 1 # Bowel Movements 4 2 General Appearance: no acute distress HEENT: normocephalic Respiratory/Chest: chest wall non-tender Cardiovascular: normal peripheral pulses Abdomen: normal bowel sounds Laboratory Tests 06/05/19 06:49: White Blood Count 6.3, Red Blood Count 3.41L, Hemoglobin 10.0L, Hematocrit 29.2L , Mean Corpuscular Volume 86, Mean Corpuscular Hemoglobin 29.4, Mean Corpuscular Hemoglobin Concent 34.3, Red Cell Distribution Width 13.5, Platelet Count 208, Mean Platelet Volume 7.6, Neutrophils (%) (Auto) 73.2, Lymphocytes (% ) (Auto) 12.4L, Monocytes (%) (Auto) 13.8H, Eosinophils (%) (Auto) 0.3, Basophils (%) (Auto) 0.3, Sodium Level 143, Potassium Level 4.1, Chloride Level 107, Carbon Dioxide Level 27, Anion Gap 9, Blood Urea Nitrogen 12, Creatinine 0.5L, Estimat Glomerular Filtration Rate > 60, Glucose Level 137H, Calcium Level 8.7, Total Bilirubin 0.2, Aspartate Amino Transf (AST/SGOT) 41H, Alanine Aminotransferase (ALT/SGPT) 26, Alkaline Phosphatase 40L, Total Protein 5.8L, Albumin 2.2L, Globulin 3.6, Albumin/Globulin Ratio 0.6L Current Medications Medications (Trade) Dose Ordered Sig/Claritza Route PRN Reason Start Time Stop Time Status Last Admin Dose Admin Acetaminophen (Tylenol) 650 mg Q4H PRN GT Mild Pain (Pain Scale 1-3) 06/02/19 01:00 06/29/19 13:29 Acetaminophen (Tylenol) 650 mg Q4H PRN GT T>100.4 06/02/19 01:00 06/29/19 13:29 Amlodipine Besylate (Norvasc) 5 mg DAILY GT 06/02/19 09:00 06/30/19 08:59 06/05/19 09:48 Dextrose (Dextrose 50%) 25 ml Q30M PRN IV Hypoglycemia 06/02/19 00:00 08/28/19 13:29 Dextrose (Dextrose 50%) 50 ml Q30M PRN IV Hypoglycemia 06/02/19 00:00 08/28/19 13:29 Escitalopram Oxalate (Lexapro) 10 mg DAILY GT 06/02/19 09:00 06/30/19 08:59 06/05/19 09:47 Hydroxychloroquine Sulfate (Plaquenil) 200 mg BID ORAL 06/04/19 09:00 06/07/19 18:01 06/05/19 09:47 Iron Sucrose 100 mg/Sodium Chloride 60 ml @ 240 mls/hr BEDTIME IV 06/02/19 21:00 06/05/19 21:14 06/04/19 22:23 Magnesium Hydroxide (Mom) 30 ml DAILYPRN PRN ORAL Constipation 06/02/19 09:00 06/29/19 08:59 Pantoprazole (Protonix) 40 mg DAILY IVP 06/02/19 09:00 06/30/19 10:59 06/05/19 09:48 Pravastatin Sodium (Pravachol) 80 mg BEDTIME GT 06/02/19 21:00 06/29/19 20:59 06/04/19 22:23 Risperidone (RisperDAL) 1 mg BID GT 06/02/19 09:00 07/14/19 17:59 06/05/19 09:47 Tramadol HCl (Ultram) 25 mg Q8H PRN GT Moderate Pain (Pain Scale 4-6) 06/02/19 01:30 06/06/19 17:29 Valproic Acid (Depakene) 250 mg Q12HR GT 06/02/19 09:00 06/29/19 20:59 06/05/19 09:48 Horace Landaverde MD Jun 05, 2019 11:14
[2019-06-05] MEDS ORDERED: NS 275ml ONE ×3 (14:11→14:23)
[2019-06-05] MEDS ORDERED: Tubing IV Secondary IV ONE ×2 (14:11→14:23)
[2019-06-05] MEDS ORDERED: D5NS 1000ml IV ONE (14:23)
--- NOTE | 2019-06-05 15:03 | Surgery Progress Note ---
Surgery Progress Note Subjective Additional Comments no acute events exam stable labs noted Objective Last 24 Hour Vital Signs Date Time Temp Pulse Resp B/P (MAP) Pulse Ox O2 Delivery O2 Flow Rate FiO2 06/05/19 12:00 Room Air 06/05/19 11:42 90 06/05/19 09:48 80 150/80 06/05/19 08:00 Room Air 06/05/19 08:00 98.2 80 21 150/80 (103) 98 06/05/19 07:58 76 06/05/19 04:00 Room Air 06/05/19 04:00 97.9 91 22 156/80 (105) 98 06/05/19 04:00 81 06/05/19 00:00 96 06/05/19 00:00 98.1 84 20 141/81 (101) 96 06/05/19 00:00 Room Air 06/04/19 20:00 95 06/04/19 20:00 98.6 95 20 136/78 (97) 97 06/04/19 20:00 Room Air 06/04/19 16:00 98.6 95 20 140/50 (80) 97 06/04/19 16:00 Room Air 06/04/19 16:00 90 I&O Intake and Output 06/04/19 06/05/19 19:00 07:00 Intake Total 850 ml 980 ml Balance 850 ml 980 ml Intake Free Water 200 ml 200 ml IV Total 60 ml Tube Feeding 650 ml 720 ml # Voids 1 1 # Bowel Movements 4 2 Dressing: dry Wound: clean Cardiovascular: RSR Respiratory: clear, decreased breath sounds Abdomen: non-tender, present bowel sounds Extremities: no tenderness, no cyanosis Laboratory Tests Test 06/05/19 06:49 White Blood Count 6.3 K/UL (4.8-10.8) Red Blood Count 3.41 M/UL (4.20-5.40) L Hemoglobin 10.0 G/DL (12.0-16.0) L Hematocrit 29.2 % (37.0-47.0) L Mean Corpuscular Volume 86 FL (80-99) Mean Corpuscular Hemoglobin 29.4 PG (27.0-31.0) Mean Corpuscular Hemoglobin Concent 34.3 G/DL (32.0-36.0) Red Cell Distribution Width 13.5 % (11.6-14.8) Platelet Count 208 K/UL (150-450) Mean Platelet Volume 7.6 FL (6.5-10.1) Neutrophils (%) (Auto) 73.2 % (45.0-75.0) Lymphocytes (%) (Auto) 12.4 % (20.0-45.0) L Monocytes (%) (Auto) 13.8 % (1.0-10.0) H Eosinophils (%) (Auto) 0.3 % (0.0-3.0) Basophils (%) (Auto) 0.3 % (0.0-2.0) Sodium Level 143 MMOL/L (136-145) Potassium Level 4.1 MMOL/L (3.5-5.1) Chloride Level 107 MMOL/L (98-107) Carbon Dioxide Level 27 MMOL/L (21-32) Anion Gap 9 mmol/L (5-15) Blood Urea Nitrogen 12 mg/dL (7-18) Creatinine 0.5 MG/DL (0.55-1.30) L Estimat Glomerular Filtration Rate > 60 mL/min (>60) Glucose Level 137 MG/DL (74-106) H Calcium Level 8.7 MG/DL (8.5-10.1) Total Bilirubin 0.2 MG/DL (0.2-1.0) Aspartate Amino Transf (AST/SGOT) 41 U/L (15-37) H Alanine Aminotransferase (ALT/SGPT) 26 U/L (12-78) Alkaline Phosphatase 40 U/L (46-116) L Total Protein 5.8 G/DL (6.4-8.2) L Albumin 2.2 G/DL (3.4-5.0) L Globulin 3.6 g/dL Albumin/Globulin Ratio 0.6 (1.0-2.7) L Plan Problems: (1) Episode of generalized weakness (2) Encephalopathy (3) Constipation (4) Hypercalcemia (5) Dysphagia (6) Altered level of consciousness (7) Toxic encephalopathy (8) Thrombocytopenia (9) GIB (gastrointestinal bleeding) Assessment & Plan: Upper GI lavage with g tube no blood likely lower gi bleed diverticuli? appreciate GI input s/p scope no acute findings okay for diet trend h/h abd exam benign no acute surgical intervention planned will follow with recs thank you (10) Lower GI bleed Assessment & Plan: Findings: There is a gastrostomy tube in place. The bowel gas pattern is unremarkable. No masses or unusual calcifications. There are degenerative changes of the lumbar spine Impression: No acute process (11) Epilepsy (12) Acute febrile illness (13) CVA (cerebral vascular accident) (14) Suspected 2019 novel coronavirus infection (15) Diabetes mellitus (16) HTN (hypertension) Tomi Ordoñez Jun 05, 2019 15:03
[2019-06-05 16:00] VITALS: BP 146/68
[2019-06-05 20:00] VITALS: BP 117/69
[2019-06-05] MEDS: Iron Sucrose 100 MG in NS 55 ML IV SCH (20:12)
--- NOTE | 2019-06-05 20:40 | Neurology Progress Note ---
Interim History Interim History ROS Limited/Unobtainable: Yes - aphasic Interim History no seizures covid + Objective Physical Exam Last Vital Signs Date Time Temp Pulse Resp B/P (MAP) Pulse Ox O2 Delivery O2 Flow Rate FiO2 06/05/19 16:00 Room Air 06/05/19 16:00 82 06/05/19 16:00 98.1 20 146/68 (94) 95 06/02/19 11:30 4 05/30/19 22:10 94 Laboratory Tests Test 06/05/19 06:49 White Blood Count 6.3 K/UL (4.8-10.8) Red Blood Count 3.41 M/UL (4.20-5.40) L Hemoglobin 10.0 G/DL (12.0-16.0) L Hematocrit 29.2 % (37.0-47.0) L Mean Corpuscular Volume 86 FL (80-99) Mean Corpuscular Hemoglobin 29.4 PG (27.0-31.0) Mean Corpuscular Hemoglobin Concent 34.3 G/DL (32.0-36.0) Red Cell Distribution Width 13.5 % (11.6-14.8) Platelet Count 208 K/UL (150-450) Mean Platelet Volume 7.6 FL (6.5-10.1) Neutrophils (%) (Auto) 73.2 % (45.0-75.0) Lymphocytes (%) (Auto) 12.4 % (20.0-45.0) L Monocytes (%) (Auto) 13.8 % (1.0-10.0) H Eosinophils (%) (Auto) 0.3 % (0.0-3.0) Basophils (%) (Auto) 0.3 % (0.0-2.0) Sodium Level 143 MMOL/L (136-145) Potassium Level 4.1 MMOL/L (3.5-5.1) Chloride Level 107 MMOL/L (98-107) Carbon Dioxide Level 27 MMOL/L (21-32) Anion Gap 9 mmol/L (5-15) Blood Urea Nitrogen 12 mg/dL (7-18) Creatinine 0.5 MG/DL (0.55-1.30) L Estimat Glomerular Filtration Rate > 60 mL/min (>60) Glucose Level 137 MG/DL (74-106) H Calcium Level 8.7 MG/DL (8.5-10.1) Total Bilirubin 0.2 MG/DL (0.2-1.0) Aspartate Amino Transf (AST/SGOT) 41 U/L (15-37) H Alanine Aminotransferase (ALT/SGPT) 26 U/L (12-78) Alkaline Phosphatase 40 U/L (46-116) L Total Protein 5.8 G/DL (6.4-8.2) L Albumin 2.2 G/DL (3.4-5.0) L Globulin 3.6 g/dL Albumin/Globulin Ratio 0.6 (1.0-2.7) L Neurologic Exam Objective lethargic, withdraws a to pain contracture in all 4. non verbal cc 36 min Impression/Recommendations Problems: (1) Episode of generalized weakness (2) Encephalopathy (3) Constipation (4) Hypercalcemia (5) Dysphagia (6) Altered level of consciousness (7) Toxic encephalopathy (8) Thrombocytopenia (9) GIB (gastrointestinal bleeding) (10) Lower GI bleed (11) Epilepsy (12) Acute febrile illness (13) CVA (cerebral vascular accident) (14) Suspected 2019 novel coronavirus infection (15) Diabetes mellitus (16) HTN (hypertension) Status: stable Diagnostic Impression ICU level of care MAp > 65 neuro checks q2h ATB per primary cont depakote 500 mg bid rule out covid19 del precautions no need for LP holding antiplatelets Larry Juarez MD Jun 05, 2019 20:40
[2019-06-06] VITALS: BP 115/65
[2019-06-06 04:00] VITALS: BP 113/72
[2019-06-06 06:03] LABS: BLOOD UREA NITROGEN 11 mg/dL (7-18); CALCIUM 8.7 MG/DL (8.5-10.1); CARBON DIOXIDE 25 MMOL/L (21-32); CHLORIDE 109 MMOL/L (98-107); CREATININE 0.6 MG/DL (0.55-1.30); POTASSIUM 4.5 MMOL/L (3.5-5.1); SODIUM 145 MMOL/L (136-145)
[2019-06-06 06:07] LABS: BASOPHILS % (AUTO) 0.7 % (0.0-2.0); EOSINOPHILS % (AUTO) 0.7 % (0.0-3.0); HEMATOCRIT 31.1 % (37.0-47.0); HEMOGLOBIN 10.5 G/DL (12.0-16.0); LYMPHOCYTES % (AUTO) 17.6 % (20.0-45.0); MEAN CORPUSCULAR VOLUME 86 FL (80-99); MONOCYTES % (AUTO) 16.1 % (1.0-10.0); NEUTROPHILS % (AUTO) 64.9 % (45.0-75.0); PLATELET COUNT 230 K/UL (150-450); RED BLOOD COUNT 3.63 M/UL (4.20-5.40); RED CELL DISTRIBUTION WIDTH 13.7 % (11.6-14.8); WHITE BLOOD COUNT 7.4 K/UL (4.8-10.8)
[2019-06-06 08:00] VITALS: BP 150/79
--- NOTE | 2019-06-06 09:10 | General Progress Note ---
Assessment/Plan Status: stable Assessment/Plan: 74-year-old female from [facility] w/PMH CVA, dysphasia s/p PEG, dementia, epilepsy, ?DMT2 who presents with bright red blood per rectum, GIB. Patient came facility with multiple COVID positive patients, pt is COVID positive. #Acute blood loss anemia - stable #Acute GIB -continue inpatient level of care -cont. to monitor hgb -Colonoscopy 06/01 without active bleed -Surgery following -Cardio following -GI following #COVID exposure, second PCR positive #Fever #elevated D-Dimer #Staph bacteremia - suspect contaminant -fever 102.7 rectal in ED -COVID positive -KUB negative -CXR right lung infiltrate -BCx staph bacteremia -Pulm consulted -d/w GI, holding anticoagulation given acute GIB -echo ordered, pending -d/w ID, bacteremia likely contaminant, repeat BCx ordered -abx per ID: hydroxychloroquine 1 more day, will retest for COVID tomorrow, pt will need two negative COVID tests prior to returning to SNF #?DMT2 -per chart review pt w/h/o DM -no medications seen in APR from [place] -Hgb A1C 5.9, not in diabetic range #HTN #HLD -holding ASA given acute GIB -home coreg held 2/2 bradycardia -amlodipine increased from 5 to 10 mg -cardio, Dr. Gottlieb. following, recs appreciated #H/o Epilepsy #Seizures #Dementia -no seizure activity reported by [place] -cont. valproic acid -check valproic acid level -cont. home risperdol -Neurology consulted #Dysphagia s/p PEG -TF per nutrition #Hypokalemia -replace with KCl via G-tube, BMP in AM DVT PPx: SCDs given acute GIB Time spent on encounter: 35 mins, >50% on counseling, coordination of care with consulting MDs, RN, manager corporate marketing. Time of note doesn't reflect time of encounter. Subjective Allergies: Coded Allergies: IODINE (Verified Allergy, Unknown, 11/10/17) Subjective F/u for acute blood loss anemia, Second COVID-19 PCR positive, staph bacteremia. Pt non-communicative at this time but appears comfortable. Objective Last 24 Hour Vital Signs Date Time Temp Pulse Resp B/P (MAP) Pulse Ox O2 Delivery O2 Flow Rate FiO2 06/06/19 04:00 76 06/06/19 04:00 Room Air 06/06/19 04:00 97.1 78 20 113/72 (86) 98 06/06/19 00:00 87 06/06/19 00:00 97.8 85 20 115/65 (82) 96 06/06/19 00:00 Room Air 06/05/19 20:00 Room Air 06/05/19 20:00 89 06/05/19 20:00 98.2 91 20 117/69 (85) 97 06/05/19 16:00 Room Air 06/05/19 16:00 82 06/05/19 16:00 98.1 84 20 146/68 (94) 95 06/05/19 12:00 Room Air 06/05/19 11:42 90 06/05/19 09:48 80 150/80 Intake and Output 06/05/19 06/06/19 19:00 07:00 Intake Total 945 ml 980 ml Balance 945 ml 980 ml Intake Free Water 105 ml 320 ml Tube Feeding 840 ml 660 ml # Voids 3 4 # Bowel Movements 1 1 Laboratory Tests 06/06/19 04:22: White Blood Count 7.4, Red Blood Count 3.63L, Hemoglobin 10.5L, Hematocrit 31.1L , Mean Corpuscular Volume 86, Mean Corpuscular Hemoglobin 28.9, Mean Corpuscular Hemoglobin Concent 33.7, Red Cell Distribution Width 13.7, Platelet Count 230, Mean Platelet Volume 7.1, Neutrophils (%) (Auto) 64.9, Lymphocytes (% ) (Auto) 17.6L, Monocytes (%) (Auto) 16.1H, Eosinophils (%) (Auto) 0.7, Basophils (%) (Auto) 0.7, Sodium Level 145, Potassium Level 4.5, Chloride Level 109H, Carbon Dioxide Level 25, Blood Urea Nitrogen 11, Creatinine 0.6, Estimat Glomerular Filtration Rate > 60, Glucose Level 122H, Calcium Level 8.7 Height (Feet): 5 Height (Inches): 3.00 Weight (Pounds): 152 Objective General Appearance: NAD, confused Cardiovascular: normal rate, regular rhythm Respiratory/Chest: lungs clear, normal breath sounds, no accessory muscle usage Abdomen: non tender, soft, +PEG c/d/i Ext: no edema HillTori M.D. Jun 06, 2019 09:10
--- NOTE | 2019-06-06 09:15 | General Progress Note ---
Assessment/Plan Problem List: (1) Suspected 2019 novel coronavirus infection ICD Codes: R68.89 - Other general symptoms and signs SNOMED: 964817322 (2) Lower GI bleed ICD Codes: K92.2 - Gastrointestinal hemorrhage, unspecified SNOMED: 72662668 (3) Thrombocytopenia ICD Codes: D69.6 - Thrombocytopenia, unspecified SNOMED: 006461176 (4) Diabetes mellitus ICD Codes: E11.9 - Type 2 diabetes mellitus without complications SNOMED: 14769115 (5) HTN (hypertension) ICD Codes: I10 - Essential (primary) hypertension SNOMED: 53154197 Status: stable Assessment/Plan: s/p colonoscopy last week now COVED +!! on Plaquenil per ID labs for am will fu Subjective ROS Limited/Unobtainable: No Allergies: Coded Allergies: IODINE (Verified Allergy, Unknown, 11/10/17) Objective Last 24 Hour Vital Signs Date Time Temp Pulse Resp B/P (MAP) Pulse Ox O2 Delivery O2 Flow Rate FiO2 06/06/19 04:00 76 06/06/19 04:00 Room Air 06/06/19 04:00 97.1 78 20 113/72 (86) 98 06/06/19 00:00 87 06/06/19 00:00 97.8 85 20 115/65 (82) 96 06/06/19 00:00 Room Air 06/05/19 20:00 Room Air 06/05/19 20:00 89 06/05/19 20:00 98.2 91 20 117/69 (85) 97 06/05/19 16:00 Room Air 06/05/19 16:00 82 06/05/19 16:00 98.1 84 20 146/68 (94) 95 06/05/19 12:00 Room Air 06/05/19 11:42 90 06/05/19 09:48 80 150/80 Intake and Output 06/05/19 06/06/19 19:00 07:00 Intake Total 945 ml 980 ml Balance 945 ml 980 ml Intake Free Water 105 ml 320 ml Tube Feeding 840 ml 660 ml # Voids 3 4 # Bowel Movements 1 1 Laboratory Tests 06/06/19 04:22: White Blood Count 7.4, Red Blood Count 3.63L, Hemoglobin 10.5L, Hematocrit 31.1L , Mean Corpuscular Volume 86, Mean Corpuscular Hemoglobin 28.9, Mean Corpuscular Hemoglobin Concent 33.7, Red Cell Distribution Width 13.7, Platelet Count 230, Mean Platelet Volume 7.1, Neutrophils (%) (Auto) 64.9, Lymphocytes (% ) (Auto) 17.6L, Monocytes (%) (Auto) 16.1H, Eosinophils (%) (Auto) 0.7, Basophils (%) (Auto) 0.7, Sodium Level 145, Potassium Level 4.5, Chloride Level 109H, Carbon Dioxide Level 25, Blood Urea Nitrogen 11, Creatinine 0.6, Estimat Glomerular Filtration Rate > 60, Glucose Level 122H, Calcium Level 8.7 Height (Feet): 5 Height (Inches): 3.00 Weight (Pounds): 152 General Appearance: alert EENT: normal ENT inspection Neck: normal alignment Cardiovascular: normal rate Respiratory/Chest: decreased breath sounds Abdomen: normal bowel sounds, non tender, soft Extremities: non-tender Thang Doan MD Jun 06, 2019 09:15
[2019-06-06] MEDS: Pantoprazole Inj IVP SCH (09:31)
[2019-06-06] MEDS: Valproic Acid 250mg/5ml Liquid GT SCH ×2 (09:31→20:47)
--- NOTE | 2019-06-06 10:17 | Pulmonology Progress Note ---
Assessment/Plan Assessment/Plan IMPRESSION: 1. Rectal bleeding. 2. Right lung pneumonia. 3. CVA. 4. halfway resident. 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 Abx per ID Continue oxygen prn and pulmonary hygiene. Subjective Interval Events: None new Constitutional: Reports: no symptoms HEENT: Repors: no symptoms Respiratory: Reports: no symptoms Cardiovascular: Reports: no symptoms Gastrointestinal/Abdominal: Reports: no symptoms Allergies: Coded Allergies: IODINE (Verified Allergy, Unknown, 11/10/17) Objective Last 24 Hour Vital Signs Date Time Temp Pulse Resp B/P (MAP) Pulse Ox O2 Delivery O2 Flow Rate FiO2 06/06/19 09:41 96 150/79 06/06/19 08:00 97.7 99 20 150/79 (102) 98 06/06/19 04:00 76 06/06/19 04:00 Room Air 06/06/19 04:00 97.1 78 20 113/72 (86) 98 06/06/19 00:00 87 06/06/19 00:00 97.8 85 20 115/65 (82) 96 06/06/19 00:00 Room Air 06/05/19 20:00 Room Air 06/05/19 20:00 89 06/05/19 20:00 98.2 91 20 117/69 (85) 97 06/05/19 16:00 Room Air 06/05/19 16:00 82 06/05/19 16:00 98.1 84 20 146/68 (94) 95 06/05/19 12:00 Room Air 06/05/19 11:42 90 Intake and Output 06/05/19 06/06/19 19:00 07:00 Intake Total 945 ml 980 ml Balance 945 ml 980 ml Intake Free Water 105 ml 320 ml Tube Feeding 840 ml 660 ml # Voids 3 4 # Bowel Movements 1 1 General Appearance: no acute distress HEENT: normocephalic Respiratory/Chest: chest wall non-tender, lungs clear Cardiovascular: normal peripheral pulses Abdomen: normal bowel sounds Laboratory Tests 06/06/19 04:22: White Blood Count 7.4, Red Blood Count 3.63L, Hemoglobin 10.5L, Hematocrit 31.1L , Mean Corpuscular Volume 86, Mean Corpuscular Hemoglobin 28.9, Mean Corpuscular Hemoglobin Concent 33.7, Red Cell Distribution Width 13.7, Platelet Count 230, Mean Platelet Volume 7.1, Neutrophils (%) (Auto) 64.9, Lymphocytes (% ) (Auto) 17.6L, Monocytes (%) (Auto) 16.1H, Eosinophils (%) (Auto) 0.7, Basophils (%) (Auto) 0.7, Sodium Level 145, Potassium Level 4.5, Chloride Level 109H, Carbon Dioxide Level 25, Blood Urea Nitrogen 11, Creatinine 0.6, Estimat Glomerular Filtration Rate > 60, Glucose Level 122H, Calcium Level 8.7 Current Medications Medications (Trade) Dose Ordered Sig/Claritza Route PRN Reason Start Time Stop Time Status Last Admin Dose Admin Acetaminophen (Tylenol) 650 mg Q4H PRN GT Mild Pain (Pain Scale 1-3) 06/02/19 01:00 06/29/19 13:29 Acetaminophen (Tylenol) 650 mg Q4H PRN GT T>100.4 06/02/19 01:00 06/29/19 13:29 Amlodipine Besylate (Norvasc) 10 mg DAILY GT 06/06/19 09:00 06/30/19 08:59 06/06/19 09:41 Dextrose (Dextrose 50%) 25 ml Q30M PRN IV Hypoglycemia 06/02/19 00:00 08/28/19 13:29 Dextrose (Dextrose 50%) 50 ml Q30M PRN IV Hypoglycemia 06/02/19 00:00 08/28/19 13:29 Escitalopram Oxalate (Lexapro) 10 mg DAILY GT 06/02/19 09:00 06/30/19 08:59 06/06/19 09:31 Hydroxychloroquine Sulfate (Plaquenil) 200 mg BID ORAL 06/04/19 09:00 06/07/19 18:01 06/06/19 09:32 Magnesium Hydroxide (Mom) 30 ml DAILYPRN PRN ORAL Constipation 06/02/19 09:00 06/29/19 08:59 Pantoprazole (Protonix) 40 mg DAILY IVP 06/02/19 09:00 06/30/19 10:59 06/06/19 09:31 Pravastatin Sodium (Pravachol) 80 mg BEDTIME GT 06/02/19 21:00 06/29/19 20:59 06/05/19 20:12 Risperidone (RisperDAL) 1 mg BID GT 06/02/19 09:00 07/14/19 17:59 06/06/19 09:32 Tramadol HCl (Ultram) 25 mg Q8H PRN GT Moderate Pain (Pain Scale 4-6) 06/02/19 01:30 06/06/19 17:29 Valproic Acid (Depakene) 250 mg Q12HR GT 06/02/19 09:00 06/29/19 20:59 06/06/19 09:31 Horace Landaverde MD Jun 06, 2019 10:17
[2019-06-06 12:00] VITALS: BP 148/83
--- NOTE | 2019-06-06 12:01 | Infectious Diseases Prog Note ---
"Assessment/Plan Assessment/Plan antibiotics : hydroxychloroquine 4.10.20 - A 1. COVID 19 pneumonia 2. fever improving 3. GI bleeding 4. diabetes mellitus 5. epilepsy 6. dementia 7. CVA 8. + blood cultures with coag neg staph | diphtheroids likely contaminated P 1. continue hydroxychloroquine 1 more day 2. will follow up cultures 3. continue isolation Subjective ROS Limited/Unobtainable: Yes Allergies: Coded Allergies: IODINE (Verified Allergy, Unknown, 11/10/17) Objective Vital Signs Last 24 Hour Vital Signs Date Time Temp Pulse Resp B/P (MAP) Pulse Ox O2 Delivery O2 Flow Rate FiO2 06/06/19 09:41 96 150/79 06/06/19 08:00 97.7 99 20 150/79 (102) 98 06/06/19 08:00 Room Air 06/06/19 07:54 75 06/06/19 04:00 76 06/06/19 04:00 Room Air 06/06/19 04:00 97.1 78 20 113/72 (86) 98 06/06/19 00:00 87 06/06/19 00:00 97.8 85 20 115/65 (82) 96 06/06/19 00:00 Room Air 06/05/19 20:00 Room Air 06/05/19 20:00 89 06/05/19 20:00 98.2 91 20 117/69 (85) 97 06/05/19 16:00 Room Air 06/05/19 16:00 82 06/05/19 16:00 98.1 84 20 146/68 (94) 95 06/05/19 12:00 Room Air Height (Feet): 5 Height (Inches): 3.00 Weight (Pounds): 152 Laboratory Tests Test 06/06/19 04:22 White Blood Count 7.4 K/UL (4.8-10.8) Red Blood Count 3.63 M/UL (4.20-5.40) L Hemoglobin 10.5 G/DL (12.0-16.0) L Hematocrit 31.1 % (37.0-47.0) L Mean Corpuscular Volume 86 FL (80-99) Mean Corpuscular Hemoglobin 28.9 PG (27.0-31.0) Mean Corpuscular Hemoglobin Concent 33.7 G/DL (32.0-36.0) Red Cell Distribution Width 13.7 % (11.6-14.8) Platelet Count 230 K/UL (150-450) Mean Platelet Volume 7.1 FL (6.5-10.1) Neutrophils (%) (Auto) 64.9 % (45.0-75.0) Lymphocytes (%) (Auto) 17.6 % (20.0-45.0) L Monocytes (%) (Auto) 16.1 % (1.0-10.0) H Eosinophils (%) (Auto) 0.7 % (0.0-3.0) Basophils (%) (Auto) 0.7 % (0.0-2.0) Sodium Level 145 MMOL/L (136-145) Potassium Level 4.5 MMOL/L (3.5-5.1) Chloride Level 109 MMOL/L (98-107) H Carbon Dioxide Level 25 MMOL/L (21-32) Blood Urea Nitrogen 11 mg/dL (7-18) Creatinine 0.6 MG/DL (0.55-1.30) Estimat Glomerular Filtration Rate > 60 mL/min (>60) Glucose Level 122 MG/DL (74-106) H Calcium Level 8.7 MG/DL (8.5-10.1) Current Medications Medications (Trade) Dose Ordered Sig/Claritza Route PRN Reason Start Time Stop Time Status Last Admin Dose Admin Acetaminophen (Tylenol) 650 mg Q4H PRN GT Mild Pain (Pain Scale 1-3) 06/02/19 01:00 06/29/19 13:29 Acetaminophen (Tylenol) 650 mg Q4H PRN GT T>100.4 06/02/19 01:00 06/29/19 13:29 Amlodipine Besylate (Norvasc) 10 mg DAILY GT 06/06/19 09:00 06/30/19 08:59 06/06/19 09:41 Dextrose (Dextrose 50%) 25 ml Q30M PRN IV Hypoglycemia 06/02/19 00:00 08/28/19 13:29 Dextrose (Dextrose 50%) 50 ml Q30M PRN IV Hypoglycemia 06/02/19 00:00 08/28/19 13:29 Escitalopram Oxalate (Lexapro) 10 mg DAILY GT 06/02/19 09:00 06/30/19 08:59 06/06/19 09:31 Hydroxychloroquine Sulfate (Plaquenil) 200 mg BID ORAL 06/04/19 09:00 06/07/19 18:01 06/06/19 09:32 Magnesium Hydroxide (Mom) 30 ml DAILYPRN PRN ORAL Constipation 06/02/19 09:00 06/29/19 08:59 Pantoprazole (Protonix) 40 mg DAILY IVP 06/02/19 09:00 06/30/19 10:59 06/06/19 09:31 Pravastatin Sodium (Pravachol) 80 mg BEDTIME GT 06/02/19 21:00 06/29/19 20:59 06/05/19 20:12 Risperidone (RisperDAL) 1 mg BID GT 06/02/19 09:00 07/14/19 17:59 06/06/19 09:32 Tramadol HCl (Ultram) 25 mg Q8H PRN GT Moderate Pain (Pain Scale 4-6) 06/02/19 01:30 06/06/19 17:29 Valproic Acid (Depakene) 250 mg Q12HR GT 06/02/19 09:00 06/29/19 20:59 06/06/19 09:31 Radha Dunham MD Jun 06, 2019 12:01"
--- NOTE | 2019-06-06 13:20 | Surgery Progress Note ---
Surgery Progress Note Subjective Additional Comments no acute events exam stable comfortable appearing Objective Last 24 Hour Vital Signs Date Time Temp Pulse Resp B/P (MAP) Pulse Ox O2 Delivery O2 Flow Rate FiO2 06/06/19 12:00 97.7 92 20 148/83 (104) 98 06/06/19 12:00 Room Air 06/06/19 11:44 84 06/06/19 09:41 96 150/79 06/06/19 08:00 97.7 99 20 150/79 (102) 98 06/06/19 08:00 Room Air 06/06/19 07:54 75 06/06/19 04:00 76 06/06/19 04:00 Room Air 06/06/19 04:00 97.1 78 20 113/72 (86) 98 06/06/19 00:00 87 06/06/19 00:00 97.8 85 20 115/65 (82) 96 06/06/19 00:00 Room Air 06/05/19 20:00 Room Air 06/05/19 20:00 89 06/05/19 20:00 98.2 91 20 117/69 (85) 97 06/05/19 16:00 Room Air 06/05/19 16:00 82 06/05/19 16:00 98.1 84 20 146/68 (94) 95 I&O Intake and Output 06/05/19 06/06/19 19:00 07:00 Intake Total 945 ml 980 ml Balance 945 ml 980 ml Intake Free Water 105 ml 320 ml Tube Feeding 840 ml 660 ml # Voids 3 4 # Bowel Movements 1 1 Dressing: other Wound: other Drains: other Cardiovascular: RSR Respiratory: decreased breath sounds Abdomen: soft, non-tender, present bowel sounds Extremities: no cyanosis Laboratory Tests Test 06/06/19 04:22 White Blood Count 7.4 K/UL (4.8-10.8) Red Blood Count 3.63 M/UL (4.20-5.40) L Hemoglobin 10.5 G/DL (12.0-16.0) L Hematocrit 31.1 % (37.0-47.0) L Mean Corpuscular Volume 86 FL (80-99) Mean Corpuscular Hemoglobin 28.9 PG (27.0-31.0) Mean Corpuscular Hemoglobin Concent 33.7 G/DL (32.0-36.0) Red Cell Distribution Width 13.7 % (11.6-14.8) Platelet Count 230 K/UL (150-450) Mean Platelet Volume 7.1 FL (6.5-10.1) Neutrophils (%) (Auto) 64.9 % (45.0-75.0) Lymphocytes (%) (Auto) 17.6 % (20.0-45.0) L Monocytes (%) (Auto) 16.1 % (1.0-10.0) H Eosinophils (%) (Auto) 0.7 % (0.0-3.0) Basophils (%) (Auto) 0.7 % (0.0-2.0) Sodium Level 145 MMOL/L (136-145) Potassium Level 4.5 MMOL/L (3.5-5.1) Chloride Level 109 MMOL/L (98-107) H Carbon Dioxide Level 25 MMOL/L (21-32) Blood Urea Nitrogen 11 mg/dL (7-18) Creatinine 0.6 MG/DL (0.55-1.30) Estimat Glomerular Filtration Rate > 60 mL/min (>60) Glucose Level 122 MG/DL (74-106) H Calcium Level 8.7 MG/DL (8.5-10.1) Plan Problems: (1) Episode of generalized weakness (2) Encephalopathy (3) Constipation (4) Hypercalcemia (5) Dysphagia (6) Altered level of consciousness (7) Toxic encephalopathy (8) Thrombocytopenia (9) GIB (gastrointestinal bleeding) Assessment & Plan: Upper GI lavage with g tube no blood likely lower gi bleed diverticuli? appreciate GI input s/p scope no acute findings okay for diet trend h/h abd exam benign no acute surgical intervention planned will follow with recs thank you resp support COVID + no gi bleed actively (10) Lower GI bleed Assessment & Plan: Findings: There is a gastrostomy tube in place. The bowel gas pattern is unremarkable. No masses or unusual calcifications. There are degenerative changes of the lumbar spine Impression: No acute process (11) Epilepsy (12) Acute febrile illness (13) CVA (cerebral vascular accident) (14) Suspected 2019 novel coronavirus infection (15) Diabetes mellitus (16) HTN (hypertension) Tomi Ordoñez Jun 06, 2019 13:20
--- NOTE | 2019-06-06 13:41 | Hematology/Onc Progress Note ---
Assessment/Plan Assessment/Plan Assessment and Recs: # Pancytopenia with Acute blood loss anemia, currently has been progressing is due to COVID19 --> likely related to underlying infection, covid rule out at this time --> currently is in the icu, hepatitis and hiv are pending --> us of the abdomen is pending, r/o hsm and cirrhosis --> smear of the periphery is pending --> abx as per id, started --> pressors prn --> 06/01 for colo by Olimpia showed 3 polyps --> repeat colo in 3 months # Acute GIB, with decrease in h/h --> no evidence of hemolyis is noted --> transfuse as needed, hgb goal >7 --> IVF hgb trend 10.4-->11.5-->10.5 --> Protonix given in ED --> GI consulted, Dr Doan: GT lavage neg, transfuse plts, prep for possible colonoscopy, also per surg # Fever liekly due to covid 19++ --> currently is on iso --> COVID 19++ --> KUB negative --> CXR ?right lung infiltrate --> per pulm # DMT2 --> accuchecks qac and qhs --> iss prn # HTN --> sbp goal is less than 140 --> as per cards # HLD --> holding ASA given acute GIB # H/o Epilepsy # Seizures # Dementia # Dysphagia s/p PEG --> on tfs # DVT PPx: SCDs given acute GIB Appreciate consultation and jose Rn Subjective HEENT: Denies: no symptoms, eye pain, blurred vision, tearing, double vision, ear pain, ear discharge, nose pain, nose congestion, throat pain, throat swelling, mouth pain, mouth swelling, other Cardiovascular: Denies: no symptoms, chest pain, edema, irregular heart rate, lightheadedness, palpitations, syncope, other Respiratory: Denies: no symptoms, cough, shortness of breath, SOB with excertion, SOB at rest, sputum, wheezing, other Gastrointestinal/Abdominal: Denies: no symptoms, abdomen distended, abdominal pain, black stools, tarry stools, blood in stool, constipated, diarrhea, difficulty swallowing, nausea, poor appetite, poor fluid intake, rectal bleeding , vomiting, other Genitourinary: Denies: no symptoms, burning, discharge, frequency, flank pain, hematuria, incontinence, pain, urgency, other Neurologic/Psychiatric: Denies: no symptoms, anxiety, depressed, emotional problems, headache, numbness, paresthesia, pre-existing deficit, seizure, tingling, tremors, weakness, other Endocrine: Denies: no symptoms, excessive sweating, flushing, intolerance to cold, intolerance to heat, increased hunger, increased thirst, increased urine, unexplained weight gain, unexplained weight loss, other Allergies: Coded Allergies: IODINE (Verified Allergy, Unknown, 11/10/17) Subjective 05/31 is for colo tomorrow, labs reviewed, hgb stable 06/01 as per gi eval, for scope, no night sweats, dw rn 06/02 no major changes, labs reviewed, no bleeding, colo done yesterday, 3 polyps noted 06/05 asleep, no bleeding or chills, labs have been noted, no night swearts, hgb 10.5 Objective Objective Current Medications Medications (Trade) Dose Ordered Sig/Claritza Route PRN Reason Start Time Stop Time Status Last Admin Dose Admin Acetaminophen (Tylenol) 650 mg Q4H PRN GT Mild Pain (Pain Scale 1-3) 06/02/19 01:00 06/29/19 13:29 Acetaminophen (Tylenol) 650 mg Q4H PRN GT T>100.4 06/02/19 01:00 06/29/19 13:29 Amlodipine Besylate (Norvasc) 10 mg DAILY GT 06/06/19 09:00 06/30/19 08:59 06/06/19 09:41 Dextrose (Dextrose 50%) 25 ml Q30M PRN IV Hypoglycemia 06/02/19 00:00 08/28/19 13:29 Dextrose (Dextrose 50%) 50 ml Q30M PRN IV Hypoglycemia 06/02/19 00:00 08/28/19 13:29 Escitalopram Oxalate (Lexapro) 10 mg DAILY GT 06/02/19 09:00 06/30/19 08:59 06/06/19 09:31 Hydroxychloroquine Sulfate (Plaquenil) 200 mg BID ORAL 06/04/19 09:00 06/07/19 18:01 06/06/19 09:32 Magnesium Hydroxide (Mom) 30 ml DAILYPRN PRN ORAL Constipation 06/02/19 09:00 06/29/19 08:59 Pantoprazole (Protonix) 40 mg DAILY IVP 06/02/19 09:00 06/30/19 10:59 06/06/19 09:31 Pravastatin Sodium (Pravachol) 80 mg BEDTIME GT 06/02/19 21:00 06/29/19 20:59 06/05/19 20:12 Risperidone (RisperDAL) 1 mg BID GT 06/02/19 09:00 07/14/19 17:59 06/06/19 09:32 Tramadol HCl (Ultram) 25 mg Q8H PRN GT Moderate Pain (Pain Scale 4-6) 06/02/19 01:30 06/06/19 17:29 Valproic Acid (Depakene) 250 mg Q12HR GT 06/02/19 09:00 06/29/19 20:59 06/06/19 09:31 Last 24 Hour Vital Signs Date Time Temp Pulse Resp B/P (MAP) Pulse Ox O2 Delivery O2 Flow Rate FiO2 06/06/19 12:00 97.7 92 20 148/83 (104) 98 06/06/19 12:00 Room Air 06/06/19 11:44 84 06/06/19 09:41 96 150/79 06/06/19 08:00 97.7 99 20 150/79 (102) 98 06/06/19 08:00 Room Air 06/06/19 07:54 75 06/06/19 04:00 76 06/06/19 04:00 Room Air 06/06/19 04:00 97.1 78 20 113/72 (86) 98 06/06/19 00:00 87 06/06/19 00:00 97.8 85 20 115/65 (82) 96 06/06/19 00:00 Room Air 06/05/19 20:00 Room Air 06/05/19 20:00 89 06/05/19 20:00 98.2 91 20 117/69 (85) 97 06/05/19 16:00 Room Air 06/05/19 16:00 82 06/05/19 16:00 98.1 84 20 146/68 (94) 95 06/05/19 12:00 Room Air 06/05/19 11:42 90 06/05/19 09:48 80 150/80 06/05/19 08:00 Room Air 06/05/19 08:00 98.2 80 21 150/80 (103) 98 06/05/19 07:58 76 06/05/19 04:00 Room Air 06/05/19 04:00 97.9 91 22 156/80 (105) 98 06/05/19 04:00 81 06/05/19 00:00 96 06/05/19 00:00 98.1 84 20 141/81 (101) 96 06/05/19 00:00 Room Air 06/04/19 20:00 95 06/04/19 20:00 98.6 95 20 136/78 (97) 97 06/04/19 20:00 Room Air 06/04/19 16:00 98.6 95 20 140/50 (80) 97 06/04/19 16:00 Room Air 06/04/19 16:00 90 Intake and Output 06/05/19 06/06/19 19:00 07:00 Intake Total 945 ml 980 ml Balance 945 ml 980 ml Intake Free Water 105 ml 320 ml Tube Feeding 840 ml 660 ml # Voids 3 4 # Bowel Movements 1 1 Labs Test 06/04/19 10:34 06/05/19 06:49 06/06/19 04:22 White Blood Count 7.8 K/UL (4.8-10.8) 6.3 K/UL (4.8-10.8) 7.4 K/UL (4.8-10.8) Red Blood Count 3.54 M/UL (4.20-5.40) 3.41 M/UL (4.20-5.40) 3.63 M/UL (4.20-5.40) Hemoglobin 10.5 G/DL (12.0-16.0) 10.0 G/DL (12.0-16.0) 10.5 G/DL (12.0-16.0) Hematocrit 30.4 % (37.0-47.0) 29.2 % (37.0-47.0) 31.1 % (37.0-47.0) Mean Corpuscular Volume 86 FL (80-99) 86 FL (80-99) 86 FL (80-99) Mean Corpuscular Hemoglobin 29.7 PG (27.0-31.0) 29.4 PG (27.0-31.0) 28.9 PG (27.0-31.0) Mean Corpuscular Hemoglobin Concent 34.6 G/DL (32.0-36.0) 34.3 G/DL (32.0-36.0) 33.7 G/DL (32.0-36.0) Red Cell Distribution Width 13.3 % (11.6-14.8) 13.5 % (11.6-14.8) 13.7 % (11.6-14.8) Platelet Count 192 K/UL (150-450) 208 K/UL (150-450) 230 K/UL (150-450) Mean Platelet Volume 8.3 FL (6.5-10.1) 7.6 FL (6.5-10.1) 7.1 FL (6.5-10.1) Neutrophils (%) (Auto) 83.9 % (45.0-75.0) 73.2 % (45.0-75.0) 64.9 % (45.0-75.0) Lymphocytes (%) (Auto) 5.1 % (20.0-45.0) 12.4 % (20.0-45.0) 17.6 % (20.0-45.0) Monocytes (%) (Auto) 10.5 % (1.0-10.0) 13.8 % (1.0-10.0) 16.1 % (1.0-10.0) Eosinophils (%) (Auto) 0.1 % (0.0-3.0) 0.3 % (0.0-3.0) 0.7 % (0.0-3.0) Basophils (%) (Auto) 0.5 % (0.0-2.0) 0.3 % (0.0-2.0) 0.7 % (0.0-2.0) Sodium Level 143 MMOL/L (136-145) 143 MMOL/L (136-145) 145 MMOL/L (136-145) Potassium Level 3.4 MMOL/L (3.5-5.1) 4.1 MMOL/L (3.5-5.1) 4.5 MMOL/L (3.5-5.1) Chloride Level 106 MMOL/L (98-107) 107 MMOL/L (98-107) 109 MMOL/L (98-107) Carbon Dioxide Level 25 MMOL/L (21-32) 27 MMOL/L (21-32) 25 MMOL/L (21-32) Anion Gap 12 mmol/L (5-15) 9 mmol/L (5-15) Blood Urea Nitrogen 12 mg/dL (7-18) 12 mg/dL (7-18) 11 mg/dL (7-18) Creatinine 0.7 MG/DL (0.55-1.30) 0.5 MG/DL (0.55-1.30) 0.6 MG/DL (0.55-1.30) Estimat Glomerular Filtration Rate > 60 mL/min (>60) > 60 mL/min (>60) > 60 mL/min (>60) Glucose Level 191 MG/DL (74-106) 137 MG/DL (74-106) 122 MG/DL (74-106) Calcium Level 9.1 MG/DL (8.5-10.1) 8.7 MG/DL (8.5-10.1) 8.7 MG/DL (8.5-10.1) Total Bilirubin 0.2 MG/DL (0.2-1.0) Aspartate Amino Transf (AST/SGOT) 41 U/L (15-37) Alanine Aminotransferase (ALT/SGPT) 26 U/L (12-78) Alkaline Phosphatase 40 U/L (46-116) Total Protein 5.8 G/DL (6.4-8.2) Albumin 2.2 G/DL (3.4-5.0) Globulin 3.6 g/dL Albumin/Globulin Ratio 0.6 (1.0-2.7) Height (Feet): 5 Height (Inches): 3.00 Weight (Pounds): 152 Objective Physical Exam Physical Exam Narrative General: NAD, A&O x 1, awake, alert, noncommunicative HEENT: NCAT, EOMi, dry mucous membranes CV: RRR, no murmurs, rubs, or gallops Pulm: CTAB, No wheezes, rhonchi, or rales, no accessory muscle usage or conversational dyspnea GI: Soft, nontender, nondistended, bowel sounds present, +PEG c/d/i Neuro: Limited due to patient communication/participation Ext: No lower extremity edema bilaterally Skin: no rashes lesions or ulcers Timothy Wong MD Jun 06, 2019 13:41
--- NOTE | 2019-06-06 13:46 | Cardiac Electrophysiology PN ---
Assessment/Plan Assessment/Plan 1. Bradycardia. Better off Coreg. Echo still pending as COVID still positive 2. Hypertension, on amlodipine 5 daily 3. Hyperlipidemia, 4. Rectal bleeding. S/P Colonoscopy by Dr. Doan that showed diverticulitis 5. History of CVA. 6. Dysphagia, status post G-tube placement. 7. Underlying pneumonia. COVID-19 PCR was negative on 05/30/19, but positive on 06/01/19 On Plaquenil. QTc 455 DW RN Subjective Subjective In SR in isolation as second COVID was positive. saturation 95% on Room Air Objective Last 24 Hour Vital Signs Date Time Temp Pulse Resp B/P (MAP) Pulse Ox O2 Delivery O2 Flow Rate FiO2 06/06/19 12:00 97.7 92 20 148/83 (104) 98 06/06/19 12:00 Room Air 06/06/19 11:44 84 06/06/19 09:41 96 150/79 06/06/19 08:00 97.7 99 20 150/79 (102) 98 06/06/19 08:00 Room Air 06/06/19 07:54 75 06/06/19 04:00 76 06/06/19 04:00 Room Air 06/06/19 04:00 97.1 78 20 113/72 (86) 98 06/06/19 00:00 87 06/06/19 00:00 97.8 85 20 115/65 (82) 96 06/06/19 00:00 Room Air 06/05/19 20:00 Room Air 06/05/19 20:00 89 06/05/19 20:00 98.2 91 20 117/69 (85) 97 06/05/19 16:00 Room Air 06/05/19 16:00 82 06/05/19 16:00 98.1 84 20 146/68 (94) 95 Intake and Output 06/05/19 06/06/19 19:00 07:00 Intake Total 945 ml 980 ml Balance 945 ml 980 ml Intake Free Water 105 ml 320 ml Tube Feeding 840 ml 660 ml # Voids 3 4 # Bowel Movements 1 1 Laboratory Tests Test 06/06/19 04:22 White Blood Count 7.4 K/UL (4.8-10.8) Red Blood Count 3.63 M/UL (4.20-5.40) L Hemoglobin 10.5 G/DL (12.0-16.0) L Hematocrit 31.1 % (37.0-47.0) L Mean Corpuscular Volume 86 FL (80-99) Mean Corpuscular Hemoglobin 28.9 PG (27.0-31.0) Mean Corpuscular Hemoglobin Concent 33.7 G/DL (32.0-36.0) Red Cell Distribution Width 13.7 % (11.6-14.8) Platelet Count 230 K/UL (150-450) Mean Platelet Volume 7.1 FL (6.5-10.1) Neutrophils (%) (Auto) 64.9 % (45.0-75.0) Lymphocytes (%) (Auto) 17.6 % (20.0-45.0) L Monocytes (%) (Auto) 16.1 % (1.0-10.0) H Eosinophils (%) (Auto) 0.7 % (0.0-3.0) Basophils (%) (Auto) 0.7 % (0.0-2.0) Sodium Level 145 MMOL/L (136-145) Potassium Level 4.5 MMOL/L (3.5-5.1) Chloride Level 109 MMOL/L (98-107) H Carbon Dioxide Level 25 MMOL/L (21-32) Blood Urea Nitrogen 11 mg/dL (7-18) Creatinine 0.6 MG/DL (0.55-1.30) Estimat Glomerular Filtration Rate > 60 mL/min (>60) Glucose Level 122 MG/DL (74-106) H Calcium Level 8.7 MG/DL (8.5-10.1) Objective HEAD AND NECK: No JVD, on room air LUNGS: Coarse rhonchi. CARDIOVASCULAR: Regular S1 and S2. Bradycardic. ABDOMEN: Soft and status post G-tube. EXTREMITIES: No pitting edema. Telly Gottlieb MD Jun 06, 2019 13:46
[2019-06-06 16:00] VITALS: BP 150/77
[2019-06-06 20:00] VITALS: BP 117/63
--- NOTE | 2019-06-06 22:30 | Neurology Progress Note ---
Interim History Interim History ROS Limited/Unobtainable: Yes Interim History somnolent, no seizures Objective Physical Exam Last Vital Signs Date Time Temp Pulse Resp B/P (MAP) Pulse Ox O2 Delivery O2 Flow Rate FiO2 06/06/19 20:00 98.6 71 18 117/63 (81) 98 06/06/19 16:00 Room Air 06/02/19 11:30 4 05/30/19 22:10 94 Laboratory Tests Test 06/06/19 04:22 White Blood Count 7.4 K/UL (4.8-10.8) Red Blood Count 3.63 M/UL (4.20-5.40) L Hemoglobin 10.5 G/DL (12.0-16.0) L Hematocrit 31.1 % (37.0-47.0) L Mean Corpuscular Volume 86 FL (80-99) Mean Corpuscular Hemoglobin 28.9 PG (27.0-31.0) Mean Corpuscular Hemoglobin Concent 33.7 G/DL (32.0-36.0) Red Cell Distribution Width 13.7 % (11.6-14.8) Platelet Count 230 K/UL (150-450) Mean Platelet Volume 7.1 FL (6.5-10.1) Neutrophils (%) (Auto) 64.9 % (45.0-75.0) Lymphocytes (%) (Auto) 17.6 % (20.0-45.0) L Monocytes (%) (Auto) 16.1 % (1.0-10.0) H Eosinophils (%) (Auto) 0.7 % (0.0-3.0) Basophils (%) (Auto) 0.7 % (0.0-2.0) Sodium Level 145 MMOL/L (136-145) Potassium Level 4.5 MMOL/L (3.5-5.1) Chloride Level 109 MMOL/L (98-107) H Carbon Dioxide Level 25 MMOL/L (21-32) Blood Urea Nitrogen 11 mg/dL (7-18) Creatinine 0.6 MG/DL (0.55-1.30) Estimat Glomerular Filtration Rate > 60 mL/min (>60) Glucose Level 122 MG/DL (74-106) H Calcium Level 8.7 MG/DL (8.5-10.1) Neurologic Exam Objective lethargic, withdraws a to pain contracture in all 4. non verbal cc 36 min Impression/Recommendations Problems: (1) Episode of generalized weakness (2) Encephalopathy (3) Constipation (4) Hypercalcemia (5) Dysphagia (6) Altered level of consciousness (7) Toxic encephalopathy (8) Thrombocytopenia (9) GIB (gastrointestinal bleeding) (10) Lower GI bleed (11) Epilepsy (12) Acute febrile illness (13) CVA (cerebral vascular accident) (14) Suspected 2019 novel coronavirus infection (15) Diabetes mellitus (16) HTN (hypertension) Status: stable Diagnostic Impression ICU level of care MAp > 65 neuro checks q2h ATB per primary cont depakote 500 mg bid rule out covid19 del precautions no need for LP holding antiplatelets Larry Juarez MD Jun 06, 2019 22:30
[2019-06-07] VITALS: BP 133/70
[2019-06-07 04:00] VITALS: BP 110/56
[2019-06-07 06:37] LABS: BASOPHILS % (AUTO) 1.4 % (0.0-2.0); EOSINOPHILS % (AUTO) 2.2 % (0.0-3.0); HEMOGLOBIN 11.5 G/DL (12.0-16.0); LYMPHOCYTES % (AUTO) 19.6 % (20.0-45.0); MEAN CORPUSCULAR VOLUME 87 FL (80-99); MONOCYTES % (AUTO) 12.1 % (1.0-10.0); NEUTROPHILS % (AUTO) 64.7 % (45.0-75.0); PLATELET COUNT 229 K/UL (150-450); RED BLOOD COUNT 3.89 M/UL (4.20-5.40); RED CELL DISTRIBUTION WIDTH 13.9 % (11.6-14.8)
[2019-06-07 06:46] LABS: ANION GAP 8 mmol/L (5-15); BLOOD UREA NITROGEN 15 mg/dL (7-18); CALCIUM 9.5 MG/DL (8.5-10.1); CARBON DIOXIDE 27 MMOL/L (21-32); CHLORIDE 107 MMOL/L (98-107); CREATININE 0.7 MG/DL (0.55-1.30); POTASSIUM 5.4 MMOL/L (3.5-5.1); SODIUM 142 MMOL/L (136-145)
[2019-06-07 08:00] VITALS: BP 121/86
[2019-06-07] MEDS: Valproic Acid 250mg/5ml Liquid GT SCH ×2 (08:41→20:05)
[2019-06-07] MEDS: Pantoprazole Inj IVP SCH (08:47)
[2019-06-07] MEDS: Eliquis 2.5mg tablet ORAL SCH ×2 (08:47→18:29)
--- NOTE | 2019-06-07 08:55 | Hematology/Onc Progress Note ---
Assessment/Plan Assessment/Plan Assessment and Recs: # Pancytopenia with Acute blood loss anemia, currently has been progressing is due to COVID19 --> likely related to underlying infection, covid rule out at this time --> currently is in the icu, hepatitis and hiv are pending --> us of the abdomen is pending, r/o hsm and cirrhosis --> smear of the periphery is pending --> abx as per id, started --> pressors prn --> 06/01 for colo by Olimpia showed 3 polyps --> repeat colo in 3 months # Acute GIB, with decrease in h/h --> no evidence of hemolyis is noted --> transfuse as needed, hgb goal >7 --> IVF hgb trend 10.4-->11.5-->10.5-->11 --> Protonix given in ED --> GI consulted, Dr Doan: GT lavage neg, transfuse plts, prep for possible colonoscopy, also per surg # Fever liekly due to covid 19++ --> currently is on iso --> COVID 19++ --> KUB negative --> CXR ?right lung infiltrate --> per pulm # DMT2 --> accuchecks qac and qhs --> iss prn # HTN --> sbp goal is less than 140 --> as per cards # HLD --> holding ASA given acute GIB # H/o Epilepsy # Seizures # Dementia # Dysphagia s/p PEG --> on tfs # DVT PPx: SCDs given acute GIB Appreciate consultation and jose Rn Subjective HEENT: Denies: no symptoms, eye pain, blurred vision, tearing, double vision, ear pain, ear discharge, nose pain, nose congestion, throat pain, throat swelling, mouth pain, mouth swelling, other Cardiovascular: Denies: no symptoms, chest pain, edema, irregular heart rate, lightheadedness, palpitations, syncope, other Gastrointestinal/Abdominal: Denies: no symptoms, abdomen distended, abdominal pain, black stools, tarry stools, blood in stool, constipated, diarrhea, difficulty swallowing, nausea, poor appetite, poor fluid intake, rectal bleeding , vomiting, other Genitourinary: Denies: no symptoms, burning, discharge, frequency, flank pain, hematuria, incontinence, pain, urgency, other Neurologic/Psychiatric: Denies: no symptoms, anxiety, depressed, emotional problems, headache, numbness, paresthesia, pre-existing deficit, seizure, tingling, tremors, weakness, other Endocrine: Denies: no symptoms, excessive sweating, flushing, intolerance to cold, intolerance to heat, increased hunger, increased thirst, increased urine, unexplained weight gain, unexplained weight loss, other Allergies: Coded Allergies: IODINE (Verified Allergy, Unknown, 11/10/17) Subjective 05/31 is for colo tomorrow, labs reviewed, hgb stable 06/01 as per gi eval, for scope, no night sweats, dw rn 06/02 no major changes, labs reviewed, no bleeding, colo done yesterday, 3 polyps noted 06/05 asleep, no bleeding or chills, labs have been noted, no night swearts, hgb 10.5 06/06 no major changes, no bleeding, labs reviewed, no night sweats Objective Objective Current Medications Medications (Trade) Dose Ordered Sig/Claritza Route PRN Reason Start Time Stop Time Status Last Admin Dose Admin Acetaminophen (Tylenol) 650 mg Q4H PRN GT Mild Pain (Pain Scale 1-3) 06/02/19 01:00 06/29/19 13:29 06/07/19 08:48 Acetaminophen (Tylenol) 650 mg Q4H PRN GT T>100.4 06/02/19 01:00 06/29/19 13:29 Amlodipine Besylate (Norvasc) 10 mg DAILY GT 06/06/19 09:00 06/30/19 08:59 06/07/19 08:43 Apixaban (Eliquis) 2.5 mg BID ORAL 06/07/19 09:00 09/05/19 08:59 06/07/19 08:47 Dextrose (Dextrose 50%) 25 ml Q30M PRN IV Hypoglycemia 06/02/19 00:00 08/28/19 13:29 Dextrose (Dextrose 50%) 50 ml Q30M PRN IV Hypoglycemia 06/02/19 00:00 08/28/19 13:29 Escitalopram Oxalate (Lexapro) 10 mg DAILY GT 06/02/19 09:00 06/30/19 08:59 06/07/19 08:42 Hydroxychloroquine Sulfate (Plaquenil) 200 mg BID ORAL 06/04/19 09:00 06/07/19 18:01 06/07/19 08:47 Magnesium Hydroxide (Mom) 30 ml DAILYPRN PRN ORAL Constipation 06/02/19 09:00 06/29/19 08:59 Pantoprazole (Protonix) 40 mg DAILY IVP 06/02/19 09:00 06/30/19 10:59 06/07/19 08:47 Pravastatin Sodium (Pravachol) 80 mg BEDTIME GT 06/02/19 21:00 06/29/19 20:59 06/06/19 20:47 Risperidone (RisperDAL) 1 mg BID GT 06/02/19 09:00 07/14/19 17:59 06/07/19 08:43 Sodium Polystyrene Sulfonate (Kayexalate) 30 gm ONCE GT 06/07/19 09:00 06/07/19 10:00 06/07/19 08:42 Valproic Acid (Depakene) 250 mg Q12HR GT 06/02/19 09:00 06/29/19 20:59 06/07/19 08:41 Last 24 Hour Vital Signs Date Time Temp Pulse Resp B/P (MAP) Pulse Ox O2 Delivery O2 Flow Rate FiO2 06/07/19 08:43 101 121/86 06/07/19 08:00 100.0 93 18 121/86 (98) 98 06/07/19 04:00 Room Air 06/07/19 04:00 75 06/07/19 04:00 98.4 89 18 110/56 (74) 95 06/07/19 00:00 69 06/07/19 00:00 97.2 73 20 133/70 (91) 95 06/07/19 00:00 Room Air 06/06/19 20:00 98.6 71 18 117/63 (81) 98 06/06/19 20:00 75 06/06/19 20:00 Room Air 06/06/19 16:00 Room Air 06/06/19 16:00 97.3 77 20 150/77 (101) 98 06/06/19 15:09 74 06/06/19 12:00 97.7 92 20 148/83 (104) 98 06/06/19 12:00 Room Air 06/06/19 11:44 84 06/06/19 09:41 96 150/79 06/06/19 08:00 97.7 99 20 150/79 (102) 98 06/06/19 08:00 Room Air 06/06/19 07:54 75 06/06/19 04:00 76 06/06/19 04:00 Room Air 06/06/19 04:00 97.1 78 20 113/72 (86) 98 06/06/19 00:00 87 06/06/19 00:00 97.8 85 20 115/65 (82) 96 06/06/19 00:00 Room Air 06/05/19 20:00 Room Air 06/05/19 20:00 89 06/05/19 20:00 98.2 91 20 117/69 (85) 97 06/05/19 16:00 Room Air 06/05/19 16:00 82 06/05/19 16:00 98.1 84 20 146/68 (94) 95 06/05/19 12:00 Room Air 06/05/19 11:42 90 06/05/19 09:48 80 150/80 Intake and Output 06/06/19 06/07/19 19:00 07:00 Intake Total 1000 ml 790 ml Output Total 800 ml 1000 ml Balance 200 ml -210 ml Intake Free Water 280 ml 100 ml Tube Feeding 720 ml 660 ml Other 30 ml Output Urine Total 800 ml 1000 ml # Voids 100 Labs Test 06/04/19 10:34 06/05/19 06:49 06/06/19 04:22 06/07/19 05:00 White Blood Count 7.8 K/UL (4.8-10.8) 6.3 K/UL (4.8-10.8) 7.4 K/UL (4.8-10.8) 8.0 K/UL (4.8-10.8) Red Blood Count 3.54 M/UL (4.20-5.40) 3.41 M/UL (4.20-5.40) 3.63 M/UL (4.20-5.40) 3.89 M/UL (4.20-5.40) Hemoglobin 10.5 G/DL (12.0-16.0) 10.0 G/DL (12.0-16.0) 10.5 G/DL (12.0-16.0) 11.5 G/DL (12.0-16.0) Hematocrit 30.4 % (37.0-47.0) 29.2 % (37.0-47.0) 31.1 % (37.0-47.0) 34.0 % (37.0-47.0) Mean Corpuscular Volume 86 FL (80-99) 86 FL (80-99) 86 FL (80-99) 87 FL (80- 99) Mean Corpuscular Hemoglobin 29.7 PG (27.0-31.0) 29.4 PG (27.0-31.0) 28.9 PG (27.0-31.0) 29.5 PG (27.0-31.0) Mean Corpuscular Hemoglobin Concent 34.6 G/DL (32.0-36.0) 34.3 G/DL (32.0-36.0) 33.7 G/DL (32.0-36.0) 33.8 G/DL (32.0-36.0) Red Cell Distribution Width 13.3 % (11.6-14.8) 13.5 % (11.6-14.8) 13.7 % (11.6-14.8) 13.9 % (11.6-14.8) Platelet Count 192 K/UL (150-450) 208 K/UL (150-450) 230 K/UL (150-450) 229 K/UL (150-450) Mean Platelet Volume 8.3 FL (6.5-10.1) 7.6 FL (6.5-10.1) 7.1 FL (6.5-10.1) 7.3 FL (6.5-10.1) Neutrophils (%) (Auto) 83.9 % (45.0-75.0) 73.2 % (45.0-75.0) 64.9 % (45.0-75.0) 64.7 % (45.0-75.0) Lymphocytes (%) (Auto) 5.1 % (20.0-45.0) 12.4 % (20.0-45.0) 17.6 % (20.0-45.0) 19.6 % (20.0-45.0) Monocytes (%) (Auto) 10.5 % (1.0-10.0) 13.8 % (1.0-10.0) 16.1 % (1.0-10.0) 12.1 % (1.0-10.0) Eosinophils (%) (Auto) 0.1 % (0.0-3.0) 0.3 % (0.0-3.0) 0.7 % (0.0-3.0) 2.2 % (0.0-3.0) Basophils (%) (Auto) 0.5 % (0.0-2.0) 0.3 % (0.0-2.0) 0.7 % (0.0-2.0) 1.4 % (0.0-2.0) Sodium Level 143 MMOL/L (136-145) 143 MMOL/L (136-145) 145 MMOL/L (136-145) 142 MMOL/L (136-145) Potassium Level 3.4 MMOL/L (3.5-5.1) 4.1 MMOL/L (3.5-5.1) 4.5 MMOL/L (3.5-5.1) 5.4 MMOL/L (3.5-5.1) Chloride Level 106 MMOL/L (98-107) 107 MMOL/L (98-107) 109 MMOL/L (98-107) 107 MMOL/L (98-107) Carbon Dioxide Level 25 MMOL/L (21-32) 27 MMOL/L (21-32) 25 MMOL/L (21-32) 27 MMOL/L (21-32) Anion Gap 12 mmol/L (5-15) 9 mmol/L (5-15) 8 mmol/L (5-15) Blood Urea Nitrogen 12 mg/dL (7-18) 12 mg/dL (7-18) 11 mg/dL (7-18) 15 mg/dL (7-18) Creatinine 0.7 MG/DL (0.55-1.30) 0.5 MG/DL (0.55-1.30) 0.6 MG/DL (0.55-1.30) 0.7 MG/DL (0.55-1.30) Estimat Glomerular Filtration Rate > 60 mL/min (>60) > 60 mL/min (>60) > 60 mL/min (>60) > 60 mL/min (>60) Glucose Level 191 MG/DL (74-106) 137 MG/DL (74-106) 122 MG/DL (74-106) 141 MG/DL (74-106) Calcium Level 9.1 MG/DL (8.5-10.1) 8.7 MG/DL (8.5-10.1) 8.7 MG/DL (8.5-10.1) 9.5 MG/DL (8.5-10.1) Total Bilirubin 0.2 MG/DL (0.2-1.0) Aspartate Amino Transf (AST/SGOT) 41 U/L (15-37) Alanine Aminotransferase (ALT/SGPT) 26 U/L (12-78) Alkaline Phosphatase 40 U/L (46-116) Total Protein 5.8 G/DL (6.4-8.2) Albumin 2.2 G/DL (3.4-5.0) Globulin 3.6 g/dL Albumin/Globulin Ratio 0.6 (1.0-2.7) Height (Feet): 5 Height (Inches): 3.00 Weight (Pounds): 150 Objective Physical Exam Physical Exam Narrative General: NAD, A&O x 1, awake, alert, noncommunicative HEENT: NCAT, EOMi, dry mucous membranes CV: RRR, no murmurs, rubs, or gallops Pulm: CTAB, No wheezes, rhonchi, or rales, no accessory muscle usage or conversational dyspnea GI: Soft, nontender, nondistended, bowel sounds present, +PEG c/d/i Neuro: Limited due to patient communication/participation Ext: No lower extremity edema bilaterally Skin: no rashes lesions or ulcers Timothy Wong MD Jun 07, 2019 08:55
[2019-06-07] MEDS ORDERED: Sodium Polystyrene Sulfonate 15gm Powder GT SCH (09:00)
--- NOTE | 2019-06-07 09:07 | General Progress Note ---
Assessment/Plan Problem List: (1) Suspected 2019 novel coronavirus infection ICD Codes: R68.89 - Other general symptoms and signs SNOMED: 757358998 (2) Lower GI bleed ICD Codes: K92.2 - Gastrointestinal hemorrhage, unspecified SNOMED: 52748052 (3) Thrombocytopenia ICD Codes: D69.6 - Thrombocytopenia, unspecified SNOMED: 383896148 (4) Diabetes mellitus ICD Codes: E11.9 - Type 2 diabetes mellitus without complications SNOMED: 82972800 (5) HTN (hypertension) ICD Codes: I10 - Essential (primary) hypertension SNOMED: 18847309 Status: stable Assessment/Plan: s/p colonoscopy last week now COVED +!! on Plaquenil per ID labs for am on Eliquis now will fu Subjective ROS Limited/Unobtainable: Yes Allergies: Coded Allergies: IODINE (Verified Allergy, Unknown, 11/10/17) Objective Last 24 Hour Vital Signs Date Time Temp Pulse Resp B/P (MAP) Pulse Ox O2 Delivery O2 Flow Rate FiO2 06/07/19 08:43 101 121/86 06/07/19 08:00 100.0 93 18 121/86 (98) 98 06/07/19 04:00 Room Air 06/07/19 04:00 75 06/07/19 04:00 98.4 89 18 110/56 (74) 95 06/07/19 00:00 69 06/07/19 00:00 97.2 73 20 133/70 (91) 95 06/07/19 00:00 Room Air 06/06/19 20:00 98.6 71 18 117/63 (81) 98 06/06/19 20:00 75 06/06/19 20:00 Room Air 06/06/19 16:00 Room Air 06/06/19 16:00 97.3 77 20 150/77 (101) 98 06/06/19 15:09 74 06/06/19 12:00 97.7 92 20 148/83 (104) 98 06/06/19 12:00 Room Air 06/06/19 11:44 84 06/06/19 09:41 96 150/79 Intake and Output 06/06/19 06/07/19 19:00 07:00 Intake Total 1000 ml 790 ml Output Total 800 ml 1000 ml Balance 200 ml -210 ml Intake Free Water 280 ml 100 ml Tube Feeding 720 ml 660 ml Other 30 ml Output Urine Total 800 ml 1000 ml # Voids 100 Laboratory Tests 06/07/19 05:00: White Blood Count 8.0, Red Blood Count 3.89L, Hemoglobin 11.5L, Hematocrit 34.0L , Mean Corpuscular Volume 87, Mean Corpuscular Hemoglobin 29.5, Mean Corpuscular Hemoglobin Concent 33.8, Red Cell Distribution Width 13.9, Platelet Count 229, Mean Platelet Volume 7.3, Neutrophils (%) (Auto) 64.7, Lymphocytes (% ) (Auto) 19.6L, Monocytes (%) (Auto) 12.1H, Eosinophils (%) (Auto) 2.2, Basophils (%) (Auto) 1.4, Sodium Level 142, Potassium Level 5.4H, Chloride Level 107, Carbon Dioxide Level 27, Anion Gap 8, Blood Urea Nitrogen 15, Creatinine 0.7, Estimat Glomerular Filtration Rate > 60, Glucose Level 141H, Calcium Level 9.5 Height (Feet): 5 Height (Inches): 3.00 Weight (Pounds): 150 General Appearance: no apparent distress EENT: normal ENT inspection Neck: supple Cardiovascular: normal rate Respiratory/Chest: decreased breath sounds Abdomen: normal bowel sounds, non tender, soft Extremities: non-tender Thang Doan MD Jun 07, 2019 09:06
--- NOTE | 2019-06-07 10:57 | Infectious Diseases Prog Note ---
"Assessment/Plan Assessment/Plan antibiotics : hydroxychloroquine 4.10.20 - A 1. COVID 19 pneumonia s/p rx with hydroxychloroquine test + 4.8.20 2. fever improving 3. GI bleeding 4. diabetes mellitus 5. epilepsy 6. dementia 7. CVA 8. + blood cultures with coag neg staph | diphtheroids likely contaminated P 1. d/c hydroxychloroquine 2. will follow up cultures 3. continue isolation Subjective ROS Limited/Unobtainable: Yes Allergies: Coded Allergies: IODINE (Verified Allergy, Unknown, 11/10/17) Objective Vital Signs Last 24 Hour Vital Signs Date Time Temp Pulse Resp B/P (MAP) Pulse Ox O2 Delivery O2 Flow Rate FiO2 06/07/19 08:43 101 121/86 06/07/19 08:00 100.0 93 18 121/86 (98) 98 06/07/19 04:00 Room Air 06/07/19 04:00 75 06/07/19 04:00 98.4 89 18 110/56 (74) 95 06/07/19 00:00 69 06/07/19 00:00 97.2 73 20 133/70 (91) 95 06/07/19 00:00 Room Air 06/06/19 20:00 98.6 71 18 117/63 (81) 98 06/06/19 20:00 75 06/06/19 20:00 Room Air 06/06/19 16:00 Room Air 06/06/19 16:00 97.3 77 20 150/77 (101) 98 06/06/19 15:09 74 06/06/19 12:00 97.7 92 20 148/83 (104) 98 06/06/19 12:00 Room Air 06/06/19 11:44 84 Height (Feet): 5 Height (Inches): 3.00 Weight (Pounds): 150 Microbiology Date/Time Source Procedure Growth Status 06/05/19 10:50 Blood Blood Culture - Preliminary NO GROWTH AFTER 24 HOURS Resulted 06/05/19 10:45 Blood Blood Culture - Preliminary NO GROWTH AFTER 24 HOURS Resulted Laboratory Tests Test 06/07/19 05:00 White Blood Count 8.0 K/UL (4.8-10.8) Red Blood Count 3.89 M/UL (4.20-5.40) L Hemoglobin 11.5 G/DL (12.0-16.0) L Hematocrit 34.0 % (37.0-47.0) L Mean Corpuscular Volume 87 FL (80-99) Mean Corpuscular Hemoglobin 29.5 PG (27.0-31.0) Mean Corpuscular Hemoglobin Concent 33.8 G/DL (32.0-36.0) Red Cell Distribution Width 13.9 % (11.6-14.8) Platelet Count 229 K/UL (150-450) Mean Platelet Volume 7.3 FL (6.5-10.1) Neutrophils (%) (Auto) 64.7 % (45.0-75.0) Lymphocytes (%) (Auto) 19.6 % (20.0-45.0) L Monocytes (%) (Auto) 12.1 % (1.0-10.0) H Eosinophils (%) (Auto) 2.2 % (0.0-3.0) Basophils (%) (Auto) 1.4 % (0.0-2.0) Sodium Level 142 MMOL/L (136-145) Potassium Level 5.4 MMOL/L (3.5-5.1) H Chloride Level 107 MMOL/L (98-107) Carbon Dioxide Level 27 MMOL/L (21-32) Anion Gap 8 mmol/L (5-15) Blood Urea Nitrogen 15 mg/dL (7-18) Creatinine 0.7 MG/DL (0.55-1.30) Estimat Glomerular Filtration Rate > 60 mL/min (>60) Glucose Level 141 MG/DL (74-106) H Calcium Level 9.5 MG/DL (8.5-10.1) Current Medications Medications (Trade) Dose Ordered Sig/Claritza Route PRN Reason Start Time Stop Time Status Last Admin Dose Admin Acetaminophen (Tylenol) 650 mg Q4H PRN GT Mild Pain (Pain Scale 1-3) 06/02/19 01:00 06/29/19 13:29 06/07/19 08:48 Acetaminophen (Tylenol) 650 mg Q4H PRN GT T>100.4 06/02/19 01:00 06/29/19 13:29 Amlodipine Besylate (Norvasc) 10 mg DAILY GT 06/06/19 09:00 06/30/19 08:59 06/07/19 08:43 Apixaban (Eliquis) 2.5 mg BID ORAL 06/07/19 09:00 09/05/19 08:59 06/07/19 08:47 Dextrose (Dextrose 50%) 25 ml Q30M PRN IV Hypoglycemia 06/02/19 00:00 08/28/19 13:29 Dextrose (Dextrose 50%) 50 ml Q30M PRN IV Hypoglycemia 06/02/19 00:00 08/28/19 13:29 Escitalopram Oxalate (Lexapro) 10 mg DAILY GT 06/02/19 09:00 06/30/19 08:59 06/07/19 08:42 Hydroxychloroquine Sulfate (Plaquenil) 200 mg BID ORAL 06/04/19 09:00 06/07/19 18:01 06/07/19 08:47 Magnesium Hydroxide (Mom) 30 ml DAILYPRN PRN ORAL Constipation 06/02/19 09:00 06/29/19 08:59 Pantoprazole (Protonix) 40 mg DAILY IVP 06/02/19 09:00 06/30/19 10:59 06/07/19 08:47 Pravastatin Sodium (Pravachol) 80 mg BEDTIME GT 06/02/19 21:00 06/29/19 20:59 06/06/19 20:47 Risperidone (RisperDAL) 1 mg BID GT 06/02/19 09:00 07/14/19 17:59 06/07/19 08:43 Valproic Acid (Depakene) 250 mg Q12HR GT 06/02/19 09:00 06/29/19 20:59 06/07/19 08:41 Radha Dunham MD Jun 07, 2019 10:57"
--- NOTE | 2019-06-07 11:04 | Pulmonology Progress Note ---
Assessment/Plan Assessment/Plan IMPRESSION: 1. Rectal bleeding. 2. Right lung pneumonia. 3. CVA. 4. [facility] resident. DISCUSSION: Repeat COVID 19 positive I will follow as [employer]. Abx per ID Continue oxygen prn and pulmonary hygiene. Subjective Interval Events: None new Constitutional: Reports: no symptoms HEENT: Repors: no symptoms Respiratory: Reports: no symptoms Cardiovascular: Reports: no symptoms Gastrointestinal/Abdominal: Reports: no symptoms Allergies: Coded Allergies: IODINE (Verified Allergy, Unknown, 11/10/17) Objective Last 24 Hour Vital Signs Date Time Temp Pulse Resp B/P (MAP) Pulse Ox O2 Delivery O2 Flow Rate FiO2 06/07/19 08:43 101 121/86 06/07/19 08:00 100.0 93 18 121/86 (98) 98 06/07/19 04:00 Room Air 06/07/19 04:00 75 06/07/19 04:00 98.4 89 18 110/56 (74) 95 06/07/19 00:00 69 06/07/19 00:00 97.2 73 20 133/70 (91) 95 06/07/19 00:00 Room Air 06/06/19 20:00 98.6 71 18 117/63 (81) 98 06/06/19 20:00 75 06/06/19 20:00 Room Air 06/06/19 16:00 Room Air 06/06/19 16:00 97.3 77 20 150/77 (101) 98 06/06/19 15:09 74 06/06/19 12:00 97.7 92 20 148/83 (104) 98 06/06/19 12:00 Room Air 06/06/19 11:44 84 Intake and Output 06/06/19 06/07/19 19:00 07:00 Intake Total 1000 ml 790 ml Output Total 800 ml 1000 ml Balance 200 ml -210 ml Intake Free Water 280 ml 100 ml Tube Feeding 720 ml 660 ml Other 30 ml Output Urine Total 800 ml 1000 ml # Voids 100 General Appearance: no acute distress HEENT: normocephalic Respiratory/Chest: chest wall non-tender Cardiovascular: normal peripheral pulses Abdomen: normal bowel sounds Microbiology Date/Time Source Procedure Growth Status 06/05/19 10:50 Blood Blood Culture - Preliminary NO GROWTH AFTER 24 HOURS Resulted 06/05/19 10:45 Blood Blood Culture - Preliminary NO GROWTH AFTER 24 HOURS Resulted Laboratory Tests 06/07/19 05:00: White Blood Count 8.0, Red Blood Count 3.89L, Hemoglobin 11.5L, Hematocrit 34.0L , Mean Corpuscular Volume 87, Mean Corpuscular Hemoglobin 29.5, Mean Corpuscular Hemoglobin Concent 33.8, Red Cell Distribution Width 13.9, Platelet Count 229, Mean Platelet Volume 7.3, Neutrophils (%) (Auto) 64.7, Lymphocytes (% ) (Auto) 19.6L, Monocytes (%) (Auto) 12.1H, Eosinophils (%) (Auto) 2.2, Basophils (%) (Auto) 1.4, Sodium Level 142, Potassium Level 5.4H, Chloride Level 107, Carbon Dioxide Level 27, Anion Gap 8, Blood Urea Nitrogen 15, Creatinine 0.7, Estimat Glomerular Filtration Rate > 60, Glucose Level 141H, Calcium Level 9.5 Current Medications Medications (Trade) Dose Ordered Sig/Claritza Route PRN Reason Start Time Stop Time Status Last Admin Dose Admin Acetaminophen (Tylenol) 650 mg Q4H PRN GT Mild Pain (Pain Scale 1-3) 06/02/19 01:00 06/29/19 13:29 06/07/19 08:48 Acetaminophen (Tylenol) 650 mg Q4H PRN GT T>100.4 06/02/19 01:00 06/29/19 13:29 Amlodipine Besylate (Norvasc) 10 mg DAILY GT 06/06/19 09:00 06/30/19 08:59 06/07/19 08:43 Apixaban (Eliquis) 2.5 mg BID ORAL 06/07/19 09:00 09/05/19 08:59 06/07/19 08:47 Dextrose (Dextrose 50%) 25 ml Q30M PRN IV Hypoglycemia 06/02/19 00:00 08/28/19 13:29 Dextrose (Dextrose 50%) 50 ml Q30M PRN IV Hypoglycemia 06/02/19 00:00 08/28/19 13:29 Escitalopram Oxalate (Lexapro) 10 mg DAILY GT 06/02/19 09:00 06/30/19 08:59 06/07/19 08:42 Hydroxychloroquine Sulfate (Plaquenil) 200 mg BID ORAL 06/04/19 09:00 06/07/19 18:01 06/07/19 08:47 Magnesium Hydroxide (Mom) 30 ml DAILYPRN PRN ORAL Constipation 06/02/19 09:00 06/29/19 08:59 Pantoprazole (Protonix) 40 mg DAILY IVP 06/02/19 09:00 06/30/19 10:59 06/07/19 08:47 Pravastatin Sodium (Pravachol) 80 mg BEDTIME GT 06/02/19 21:00 06/29/19 20:59 06/06/19 20:47 Risperidone (RisperDAL) 1 mg BID GT 06/02/19 09:00 07/14/19 17:59 06/07/19 08:43 Valproic Acid (Depakene) 250 mg Q12HR GT 06/02/19 09:00 06/29/19 20:59 06/07/19 08:41 Horace Landaverde MD Jun 07, 2019 11:04
--- NOTE | 2019-06-07 11:28 | Cardiac Electrophysiology PN ---
Assessment/Plan Assessment/Plan 1. Bradycardia. Better off Coreg. Echo still pending as COVID still positive 2. Hypertension, on amlodipine 5 daily 3. Hyperlipidemia, 4. Rectal bleeding. S/P Colonoscopy by Dr. Doan that showed diverticulitis 5. History of CVA. 6. Dysphagia, status post G-tube placement. 7. Underlying pneumonia. COVID-19 PCR was negative on 05/30/19, but positive on 06/01/19 On Plaquenil. QTc 455 DW RN Subjective Subjective In SR in isolation as second COVID was positive. Saturation 95% on Room Air. Comfortable in NAD. Objective Last 24 Hour Vital Signs Date Time Temp Pulse Resp B/P (MAP) Pulse Ox O2 Delivery O2 Flow Rate FiO2 06/07/19 08:43 101 121/86 06/07/19 08:00 Room Air 06/07/19 08:00 100.0 93 18 121/86 (98) 98 06/07/19 04:00 Room Air 06/07/19 04:00 75 06/07/19 04:00 98.4 89 18 110/56 (74) 95 06/07/19 00:00 69 06/07/19 00:00 97.2 73 20 133/70 (91) 95 06/07/19 00:00 Room Air 06/06/19 20:00 98.6 71 18 117/63 (81) 98 06/06/19 20:00 75 06/06/19 20:00 Room Air 06/06/19 16:00 Room Air 06/06/19 16:00 97.3 77 20 150/77 (101) 98 06/06/19 15:09 74 06/06/19 12:00 97.7 92 20 148/83 (104) 98 06/06/19 12:00 Room Air 06/06/19 11:44 84 Intake and Output 06/06/19 06/07/19 19:00 07:00 Intake Total 1000 ml 950 ml Output Total 800 ml 1000 ml Balance 200 ml -50 ml Intake Free Water 280 ml 200 ml Tube Feeding 720 ml 720 ml Other 30 ml Output Urine Total 800 ml 1000 ml # Voids 100 Laboratory Tests Test 06/07/19 05:00 White Blood Count 8.0 K/UL (4.8-10.8) Red Blood Count 3.89 M/UL (4.20-5.40) L Hemoglobin 11.5 G/DL (12.0-16.0) L Hematocrit 34.0 % (37.0-47.0) L Mean Corpuscular Volume 87 FL (80-99) Mean Corpuscular Hemoglobin 29.5 PG (27.0-31.0) Mean Corpuscular Hemoglobin Concent 33.8 G/DL (32.0-36.0) Red Cell Distribution Width 13.9 % (11.6-14.8) Platelet Count 229 K/UL (150-450) Mean Platelet Volume 7.3 FL (6.5-10.1) Neutrophils (%) (Auto) 64.7 % (45.0-75.0) Lymphocytes (%) (Auto) 19.6 % (20.0-45.0) L Monocytes (%) (Auto) 12.1 % (1.0-10.0) H Eosinophils (%) (Auto) 2.2 % (0.0-3.0) Basophils (%) (Auto) 1.4 % (0.0-2.0) Sodium Level 142 MMOL/L (136-145) Potassium Level 5.4 MMOL/L (3.5-5.1) H Chloride Level 107 MMOL/L (98-107) Carbon Dioxide Level 27 MMOL/L (21-32) Anion Gap 8 mmol/L (5-15) Blood Urea Nitrogen 15 mg/dL (7-18) Creatinine 0.7 MG/DL (0.55-1.30) Estimat Glomerular Filtration Rate > 60 mL/min (>60) Glucose Level 141 MG/DL (74-106) H Calcium Level 9.5 MG/DL (8.5-10.1) Microbiology Date/Time Source Procedure Growth Status 06/05/19 10:50 Blood Blood Culture - Preliminary NO GROWTH AFTER 24 HOURS Resulted 06/05/19 10:45 Blood Blood Culture - Preliminary NO GROWTH AFTER 24 HOURS Resulted Objective HEAD AND NECK: No JVD, on room air LUNGS: Coarse rhonchi. CARDIOVASCULAR: Regular S1 and S2. Bradycardic. ABDOMEN: Soft and status post G-tube. EXTREMITIES: No pitting edema. Telly Gottlieb MD Jun 07, 2019 11:27
[2019-06-07 12:00] VITALS: BP 117/60
--- NOTE | 2019-06-07 13:38 | Surgery Progress Note ---
Surgery Progress Note Subjective Additional Comments no acute events comfortable stable exam unchanged abd soft, nt d dimer up on eliquis Objective Last 24 Hour Vital Signs Date Time Temp Pulse Resp B/P (MAP) Pulse Ox O2 Delivery O2 Flow Rate FiO2 06/07/19 12:00 Room Air 06/07/19 08:43 101 121/86 06/07/19 08:00 Room Air 06/07/19 08:00 100.0 93 18 121/86 (98) 98 06/07/19 08:00 93 06/07/19 04:00 Room Air 06/07/19 04:00 75 06/07/19 04:00 98.4 89 18 110/56 (74) 95 06/07/19 00:00 69 06/07/19 00:00 97.2 73 20 133/70 (91) 95 06/07/19 00:00 Room Air 06/06/19 20:00 98.6 71 18 117/63 (81) 98 06/06/19 20:00 75 06/06/19 20:00 Room Air 06/06/19 16:00 Room Air 06/06/19 16:00 97.3 77 20 150/77 (101) 98 06/06/19 15:09 74 I&O Intake and Output 06/06/19 06/07/19 19:00 07:00 Intake Total 1000 ml 950 ml Output Total 800 ml 1000 ml Balance 200 ml -50 ml Intake Free Water 280 ml 200 ml Tube Feeding 720 ml 720 ml Other 30 ml Output Urine Total 800 ml 1000 ml # Voids 100 Dressing: other Wound: other Drains: other Cardiovascular: RSR Respiratory: decreased breath sounds Abdomen: soft, distended, non-tender, present bowel sounds Extremities: no edema, no tenderness, no cyanosis Laboratory Tests Test 06/07/19 05:00 White Blood Count 8.0 K/UL (4.8-10.8) Red Blood Count 3.89 M/UL (4.20-5.40) L Hemoglobin 11.5 G/DL (12.0-16.0) L Hematocrit 34.0 % (37.0-47.0) L Mean Corpuscular Volume 87 FL (80-99) Mean Corpuscular Hemoglobin 29.5 PG (27.0-31.0) Mean Corpuscular Hemoglobin Concent 33.8 G/DL (32.0-36.0) Red Cell Distribution Width 13.9 % (11.6-14.8) Platelet Count 229 K/UL (150-450) Mean Platelet Volume 7.3 FL (6.5-10.1) Neutrophils (%) (Auto) 64.7 % (45.0-75.0) Lymphocytes (%) (Auto) 19.6 % (20.0-45.0) L Monocytes (%) (Auto) 12.1 % (1.0-10.0) H Eosinophils (%) (Auto) 2.2 % (0.0-3.0) Basophils (%) (Auto) 1.4 % (0.0-2.0) Sodium Level 142 MMOL/L (136-145) Potassium Level 5.4 MMOL/L (3.5-5.1) H Chloride Level 107 MMOL/L (98-107) Carbon Dioxide Level 27 MMOL/L (21-32) Anion Gap 8 mmol/L (5-15) Blood Urea Nitrogen 15 mg/dL (7-18) Creatinine 0.7 MG/DL (0.55-1.30) Estimat Glomerular Filtration Rate > 60 mL/min (>60) Glucose Level 141 MG/DL (74-106) H Calcium Level 9.5 MG/DL (8.5-10.1) Plan Problems: (1) Episode of generalized weakness (2) Encephalopathy (3) Constipation (4) Hypercalcemia (5) Dysphagia (6) Altered level of consciousness (7) Toxic encephalopathy (8) Thrombocytopenia (9) GIB (gastrointestinal bleeding) Assessment & Plan: Upper GI lavage with g tube no blood likely lower gi bleed diverticuli? appreciate GI input s/p scope no acute findings okay for diet trend h/h abd exam benign no acute surgical intervention planned will follow with recs thank you resp support COVID + no gi bleed actively d dimer up elaquis (10) Lower GI bleed Assessment & Plan: Findings: There is a gastrostomy tube in place. The bowel gas pattern is unremarkable. No masses or unusual calcifications. There are degenerative changes of the lumbar spine Impression: No acute process (11) Epilepsy (12) Acute febrile illness (13) CVA (cerebral vascular accident) (14) Suspected 2019 novel coronavirus infection (15) Diabetes mellitus (16) HTN (hypertension) Tomi Ordoñez Jun 07, 2019 13:38
[2019-06-07 16:00] VITALS: BP 111/72
--- NOTE | 2019-06-07 16:52 | General Progress Note ---
Assessment/Plan Status: stable Assessment/Plan: 74[facility], dysphasia s/p PEG, dementia, epilepsy, ?DMT2 who presents with bright red blood per rectum, GIB. Patient came facility with multiple COVID positive patients, pt is COVID positive. #Acute blood loss anemia - stable #Acute GIB -continue inpatient level of care -cont. to monitor hgb -Colonoscopy 06/01 without active bleed -Surgery following -Cardio following -GI following #COVID exposure, second PCR positive #Fever #elevated D-Dimer #Staph bacteremia - suspect contaminant -fever 102.7 rectal in ED -COVID positive -KUB negative -CXR right lung infiltrate -BCx staph bacteremia, repeat negative, likely contaminant per ID -echo ordered, pending -OK to start eliquis per GI -start eliquis given elevated d-dimer -ID: d/c hydroxychloroquine -recheck COVID -d/c planning #h/o DMT2 -per chart review pt w/h/o DM -no medications seen in [facility] from [place] -Hgb A1C 5.9, not in diabetic range #HTN #HLD -holding ASA given acute GIB, will cont. to hold while on eliquis -home coreg held 2/2 bradycardia -amlodipine increased from 5 to 10 mg -cardio, Dr. Gottlieb. following, recs appreciated #H/o Epilepsy #Seizures #Dementia -no seizure activity reported by [place] -cont. valproic acid -cont. home risperdol -Neurology consulted #Dysphagia s/p PEG -TF per nutrition #Hypokalemia -replace with KCl via G-tube, BMP in AM DVT PPx: eliquis Time spent on encounter: 35 mins, >50% on counseling, coordination of care with consulting MDs, RN, vascular manager. Time of note doesn't reflect time of encounter. Subjective ROS Limited/Unobtainable: Yes - aphasic, non-communicative Allergies: Coded Allergies: IODINE (Verified Allergy, Unknown, 11/10/17) Subjective F/u for acute blood loss anemia, Second COVID-19 PCR positive, staph bacteremia. Pt non-communicative at this time but appears comfortable. Objective Last 24 Hour Vital Signs Date Time Temp Pulse Resp B/P (MAP) Pulse Ox O2 Delivery O2 Flow Rate FiO2 06/07/19 12:00 97.7 95 18 117/60 (79) 98 06/07/19 12:00 81 06/07/19 12:00 Room Air 06/07/19 08:43 101 121/86 06/07/19 08:00 Room Air 06/07/19 08:00 100.0 93 18 121/86 (98) 98 06/07/19 08:00 93 06/07/19 04:00 Room Air 06/07/19 04:00 75 06/07/19 04:00 98.4 89 18 110/56 (74) 95 06/07/19 00:00 69 06/07/19 00:00 97.2 73 20 133/70 (91) 95 06/07/19 00:00 Room Air 06/06/19 20:00 98.6 71 18 117/63 (81) 98 06/06/19 20:00 75 06/06/19 20:00 Room Air Intake and Output 06/06/19 06/07/19 19:00 07:00 Intake Total 1000 ml 950 ml Output Total 800 ml 1000 ml Balance 200 ml -50 ml Intake Free Water 280 ml 200 ml Tube Feeding 720 ml 720 ml Other 30 ml Output Urine Total 800 ml 1000 ml # Voids 100 Laboratory Tests 06/07/19 05:00: White Blood Count 8.0, Red Blood Count 3.89L, Hemoglobin 11.5L, Hematocrit 34.0L , Mean Corpuscular Volume 87, Mean Corpuscular Hemoglobin 29.5, Mean Corpuscular Hemoglobin Concent 33.8, Red Cell Distribution Width 13.9, Platelet Count 229, Mean Platelet Volume 7.3, Neutrophils (%) (Auto) 64.7, Lymphocytes (% ) (Auto) 19.6L, Monocytes (%) (Auto) 12.1H, Eosinophils (%) (Auto) 2.2, Basophils (%) (Auto) 1.4, Sodium Level 142, Potassium Level 5.4H, Chloride Level 107, Carbon Dioxide Level 27, Anion Gap 8, Blood Urea Nitrogen 15, Creatinine 0.7, Estimat Glomerular Filtration Rate > 60, Glucose Level 141H, Calcium Level 9.5 Height (Feet): 5 Height (Inches): 3.00 Weight (Pounds): 150 Objective General Appearance: NAD, confused, awake Cardiovascular: normal rate, regular rhythm Respiratory/Chest: lungs clear, normal breath sounds, no accessory muscle usage Abdomen: non tender, soft, +PEG c/d/i Ext: no edema Tori Hill M.D. Jun 07, 2019 16:52
[2019-06-07 20:00] VITALS: BP 113/75
--- NOTE | 2019-06-07 20:40 | Neurology Progress Note ---
Interim History Interim History ROS Limited/Unobtainable: Yes - aphasic, non-communicative Interim History no seizures Objective Physical Exam Last Vital Signs Date Time Temp Pulse Resp B/P (MAP) Pulse Ox O2 Delivery O2 Flow Rate FiO2 06/07/19 16:00 66 06/07/19 16:00 98.1 17 111/72 (85) 96 06/07/19 16:00 Room Air 06/02/19 11:30 4 05/30/19 22:10 94 Laboratory Tests Test 06/07/19 05:00 White Blood Count 8.0 K/UL (4.8-10.8) Red Blood Count 3.89 M/UL (4.20-5.40) L Hemoglobin 11.5 G/DL (12.0-16.0) L Hematocrit 34.0 % (37.0-47.0) L Mean Corpuscular Volume 87 FL (80-99) Mean Corpuscular Hemoglobin 29.5 PG (27.0-31.0) Mean Corpuscular Hemoglobin Concent 33.8 G/DL (32.0-36.0) Red Cell Distribution Width 13.9 % (11.6-14.8) Platelet Count 229 K/UL (150-450) Mean Platelet Volume 7.3 FL (6.5-10.1) Neutrophils (%) (Auto) 64.7 % (45.0-75.0) Lymphocytes (%) (Auto) 19.6 % (20.0-45.0) L Monocytes (%) (Auto) 12.1 % (1.0-10.0) H Eosinophils (%) (Auto) 2.2 % (0.0-3.0) Basophils (%) (Auto) 1.4 % (0.0-2.0) Sodium Level 142 MMOL/L (136-145) Potassium Level 5.4 MMOL/L (3.5-5.1) H Chloride Level 107 MMOL/L (98-107) Carbon Dioxide Level 27 MMOL/L (21-32) Anion Gap 8 mmol/L (5-15) Blood Urea Nitrogen 15 mg/dL (7-18) Creatinine 0.7 MG/DL (0.55-1.30) Estimat Glomerular Filtration Rate > 60 mL/min (>60) Glucose Level 141 MG/DL (74-106) H Calcium Level 9.5 MG/DL (8.5-10.1) Neurologic Exam Objective lethargic, withdraws a to pain contracture in all 4. non verbal cc 36 min Impression/Recommendations Problems: (1) Episode of generalized weakness (2) Encephalopathy (3) Constipation (4) Hypercalcemia (5) Dysphagia (6) Altered level of consciousness (7) Toxic encephalopathy (8) Thrombocytopenia (9) GIB (gastrointestinal bleeding) (10) Lower GI bleed (11) Epilepsy (12) Acute febrile illness (13) CVA (cerebral vascular accident) (14) Suspected 2019 novel coronavirus infection (15) Diabetes mellitus (16) HTN (hypertension) Status: stable Diagnostic Impression ICU level of care MAp > 65 neuro checks q2h ATB per primary cont depakote 500 mg bid rule out covid19 del precautions no need for LP holding antiplatelets Larry Juarez MD Jun 07, 2019 20:40
[2019-06-08] VITALS: BP 118/72
[2019-06-08 04:00] VITALS: BP 125/87
[2019-06-08 07:28] LABS: BASOPHILS % (AUTO) 0.8 % (0.0-2.0); HEMOGLOBIN 10.3 G/DL (12.0-16.0); LYMPHOCYTES % (AUTO) 24.1 % (20.0-45.0); MEAN CORPUSCULAR VOLUME 88 FL (80-99); MONOCYTES % (AUTO) 14.8 % (1.0-10.0); NEUTROPHILS % (AUTO) 58.3 % (45.0-75.0); PLATELET COUNT 269 K/UL (150-450); RED BLOOD COUNT 3.42 M/UL (4.20-5.40); RED CELL DISTRIBUTION WIDTH 14.3 % (11.6-14.8)
[2019-06-08 07:57] VITALS: BP 156/81
[2019-06-08 08:05] LABS: ANION GAP 13 mmol/L (5-15); BLOOD UREA NITROGEN 14 mg/dL (7-18); CALCIUM 9.6 MG/DL (8.5-10.1); CARBON DIOXIDE 24 MMOL/L (21-32); CHLORIDE 109 MMOL/L (98-107); CREATININE 0.7 MG/DL (0.55-1.30); POTASSIUM 5.4 MMOL/L (3.5-5.1); SODIUM 146 MMOL/L (136-145)
--- NOTE | 2019-06-08 08:56 | General Progress Note ---
Assessment/Plan Problem List: (1) Suspected 2019 novel coronavirus infection ICD Codes: R68.89 - Other general symptoms and signs SNOMED: 479440834 (2) Lower GI bleed ICD Codes: K92.2 - Gastrointestinal hemorrhage, unspecified SNOMED: 78637286 (3) Thrombocytopenia ICD Codes: D69.6 - Thrombocytopenia, unspecified SNOMED: 433432234 (4) Diabetes mellitus ICD Codes: E11.9 - Type 2 diabetes mellitus without complications SNOMED: 37319129 (5) HTN (hypertension) ICD Codes: I10 - Essential (primary) hypertension SNOMED: 60843208 Status: stable Assessment/Plan: s/p colonoscopy last week now COVED +!! on Plaquenil per ID labs for am on Eliquis now will fu Subjective ROS Limited/Unobtainable: No Allergies: Coded Allergies: IODINE (Verified Allergy, Unknown, 11/10/17) Objective Last 24 Hour Vital Signs Date Time Temp Pulse Resp B/P (MAP) Pulse Ox O2 Delivery O2 Flow Rate FiO2 06/08/19 07:57 97.7 88 20 156/81 (106) 99 06/08/19 04:00 Room Air 06/08/19 04:00 98.1 90 20 125/87 (100) 99 06/08/19 04:00 105 06/08/19 00:00 97.9 95 21 118/72 (87) 98 06/08/19 00:00 Room Air 06/08/19 00:00 73 06/07/19 20:00 90 06/07/19 20:00 97.7 82 19 113/75 (88) 97 06/07/19 20:00 Room Air 06/07/19 16:00 66 06/07/19 16:00 98.1 88 17 111/72 (85) 96 06/07/19 16:00 Room Air 06/07/19 12:00 97.7 95 18 117/60 (79) 98 06/07/19 12:00 81 06/07/19 12:00 Room Air Intake and Output 06/07/19 06/08/19 19:00 07:00 Intake Total 300 ml 860 ml Output Total 200 ml Balance 100 ml 860 ml Intake Free Water 200 ml Tube Feeding 300 ml 660 ml Output Urine Total 200 ml # Bowel Movements 1 Laboratory Tests 06/08/19 04:30: White Blood Count 9.0, Red Blood Count 3.42L, Hemoglobin 10.3L, Hematocrit 30.0L , Mean Corpuscular Volume 88, Mean Corpuscular Hemoglobin 30.2, Mean Corpuscular Hemoglobin Concent 34.4, Red Cell Distribution Width 14.3, Platelet Count 269, Mean Platelet Volume 7.1, Neutrophils (%) (Auto) 58.3, Lymphocytes (% ) (Auto) 24.1, Monocytes (%) (Auto) 14.8H, Eosinophils (%) (Auto) 2.0, Basophils (%) (Auto) 0.8, Sodium Level 146H, Potassium Level 5.4H, Chloride Level 109H, Carbon Dioxide Level 24, Anion Gap 13, Blood Urea Nitrogen 14, Creatinine 0.7, Estimat Glomerular Filtration Rate > 60, Glucose Level 83, Calcium Level 9.6, Magnesium Level 2.6H Height (Feet): 5 Height (Inches): 3.00 Weight (Pounds): 148 General Appearance: no apparent distress EENT: normal ENT inspection Neck: supple Cardiovascular: normal rate Respiratory/Chest: decreased breath sounds Abdomen: normal bowel sounds, non tender, soft Extremities: non-tender Thang Doan MD Jun 08, 2019 08:56
[2019-06-08] MEDS: Eliquis 2.5mg tablet ORAL SCH ×2 (09:34→17:23)
[2019-06-08] MEDS: Valproic Acid 250mg/5ml Liquid GT SCH ×2 (09:35→20:28)
[2019-06-08] MEDS: Pantoprazole Inj IVP SCH (09:35)
--- NOTE | 2019-06-08 09:51 | Surgery Progress Note ---
Surgery Progress Note Subjective Additional Comments no acute events comfortable appearing no n/v/f/c labs stable Objective Last 24 Hour Vital Signs Date Time Temp Pulse Resp B/P (MAP) Pulse Ox O2 Delivery O2 Flow Rate FiO2 06/08/19 09:34 88 156/81 06/08/19 07:57 97.7 88 20 156/81 (106) 99 06/08/19 04:00 Room Air 06/08/19 04:00 98.1 90 20 125/87 (100) 99 06/08/19 04:00 105 06/08/19 00:00 97.9 95 21 118/72 (87) 98 06/08/19 00:00 Room Air 06/08/19 00:00 73 06/07/19 20:00 90 06/07/19 20:00 97.7 82 19 113/75 (88) 97 06/07/19 20:00 Room Air 06/07/19 16:00 66 06/07/19 16:00 98.1 88 17 111/72 (85) 96 06/07/19 16:00 Room Air 06/07/19 12:00 97.7 95 18 117/60 (79) 98 06/07/19 12:00 81 06/07/19 12:00 Room Air I&O Intake and Output 06/07/19 06/08/19 19:00 07:00 Intake Total 300 ml 860 ml Output Total 200 ml Balance 100 ml 860 ml Intake Free Water 200 ml Tube Feeding 300 ml 660 ml Output Urine Total 200 ml # Bowel Movements 1 Cardiovascular: RSR Respiratory: decreased breath sounds Abdomen: soft, non-tender, present bowel sounds Extremities: no edema, no tenderness, no cyanosis Laboratory Tests Test 06/08/19 04:30 White Blood Count 9.0 K/UL (4.8-10.8) Red Blood Count 3.42 M/UL (4.20-5.40) L Hemoglobin 10.3 G/DL (12.0-16.0) L Hematocrit 30.0 % (37.0-47.0) L Mean Corpuscular Volume 88 FL (80-99) Mean Corpuscular Hemoglobin 30.2 PG (27.0-31.0) Mean Corpuscular Hemoglobin Concent 34.4 G/DL (32.0-36.0) Red Cell Distribution Width 14.3 % (11.6-14.8) Platelet Count 269 K/UL (150-450) Mean Platelet Volume 7.1 FL (6.5-10.1) Neutrophils (%) (Auto) 58.3 % (45.0-75.0) Lymphocytes (%) (Auto) 24.1 % (20.0-45.0) Monocytes (%) (Auto) 14.8 % (1.0-10.0) H Eosinophils (%) (Auto) 2.0 % (0.0-3.0) Basophils (%) (Auto) 0.8 % (0.0-2.0) Sodium Level 146 MMOL/L (136-145) H Potassium Level 5.4 MMOL/L (3.5-5.1) H Chloride Level 109 MMOL/L (98-107) H Carbon Dioxide Level 24 MMOL/L (21-32) Anion Gap 13 mmol/L (5-15) Blood Urea Nitrogen 14 mg/dL (7-18) Creatinine 0.7 MG/DL (0.55-1.30) Estimat Glomerular Filtration Rate > 60 mL/min (>60) Glucose Level 83 MG/DL (74-106) Calcium Level 9.6 MG/DL (8.5-10.1) Magnesium Level 2.6 MG/DL (1.8-2.4) H Plan Problems: (1) Episode of generalized weakness (2) Encephalopathy (3) Constipation (4) Hypercalcemia (5) Dysphagia (6) Altered level of consciousness (7) Toxic encephalopathy (8) Thrombocytopenia (9) GIB (gastrointestinal bleeding) Assessment & Plan: Upper GI lavage with g tube no blood likely lower gi bleed diverticuli? appreciate GI input s/p scope no acute findings okay for diet trend h/h abd exam benign no acute surgical intervention planned will follow with recs thank you resp support COVID + no gi bleed actively d dimer up elaquis (10) Lower GI bleed Assessment & Plan: Findings: There is a gastrostomy tube in place. The bowel gas pattern is unremarkable. No masses or unusual calcifications. There are degenerative changes of the lumbar spine Impression: No acute process (11) Epilepsy (12) Acute febrile illness (13) CVA (cerebral vascular accident) (14) Suspected 2019 novel coronavirus infection (15) Diabetes mellitus (16) HTN (hypertension) Benyamini,Tomi Jun 08, 2019 09:51
--- NOTE | 2019-06-08 10:12 | General Progress Note ---
Assessment/Plan Status: stable Assessment/Plan: 74-year-old female from [facility] w/PMH CVA, dysphasia s/p PEG, dementia, epilepsy, ?DMT2 who presents with bright red blood per rectum, GIB. Patient came facility with multiple COVID positive patients, pt is COVID positive. #Acute blood loss anemia - stable #Acute GIB -continue inpatient level of care -cont. to monitor hgb -Colonoscopy 06/01 without active bleed -Surgery following - no sx at this time -Cardio following -GI following #COVID exposure, second PCR positive #Fever - resolved #elevated D-Dimer #Staph bacteremia - suspect contaminant -fever 102.7 rectal in ED -COVID positive -KUB negative -CXR right lung infiltrate -BCx staph bacteremia, repeat negative, likely contaminant per ID -echo ordered, pending -OK to start eliquis per GI -Cont. Eliquis given elevated d-dimer -recheck d-dimer level -d/w PulDr. Landaverde, states elevated d-dimer 2/2 COVID -ID: s/p hydroxychloroquine, cont. to monitor off abx -recheck COVID, awaiting for 2 negative results 24 hrs apart for safe d/c -d/c planning to SNF once negative COVID x2 #h/o DMT2 -per chart review pt w/h/o DM -no medications seen in [facility] from [facility] -Hgb A1C 5.9, not in diabetic range #HTN #HLD -holding ASA given acute GIB, will cont. to hold while on eliquis -home coreg held 2/2 bradycardia -amlodipine 10 mg -cardio, Dr. Gottlieb. following, recs appreciated #H/o Epilepsy #Seizures #Dementia -no seizure activity reported by [facility] -cont. valproic acid -cont. home risperdol -Neurology consulted #Dysphagia s/p PEG -TF per nutrition #Hyperkalemia #Hypokalemia - resolved -cont. to monitor, replace PRN -will give Kayexalate for hyperkalemia DVT PPx: eliquis Time spent on encounter: 36 mins, 25 mins spent on discussing case w/Dr. Vera and RN. Additional 30 mins spent discussing w/CM multiple times regarding placement/ dispo planning and Pulm, Dr. Tirmizi regarding elevated d-dimer. Time of note doesn't reflect time of encounter. Subjective Allergies: Coded Allergies: IODINE (Verified Allergy, Unknown, 11/10/17) Subjective F/u for acute blood loss anemia, Second COVID-19 PCR positive, staph bacteremia , s/p abx, pending retest COVID. Pt appears comfortable, non-communicative. Objective Last 24 Hour Vital Signs Date Time Temp Pulse Resp B/P (MAP) Pulse Ox O2 Delivery O2 Flow Rate FiO2 06/08/19 09:34 88 156/81 06/08/19 08:00 Room Air 06/08/19 08:00 71 06/08/19 07:57 97.7 88 20 156/81 (106) 99 06/08/19 04:00 Room Air 06/08/19 04:00 98.1 90 20 125/87 (100) 99 06/08/19 04:00 105 06/08/19 00:00 97.9 95 21 118/72 (87) 98 06/08/19 00:00 Room Air 06/08/19 00:00 73 06/07/19 20:00 90 06/07/19 20:00 97.7 82 19 113/75 (88) 97 06/07/19 20:00 Room Air 06/07/19 16:00 66 06/07/19 16:00 98.1 88 17 111/72 (85) 96 06/07/19 16:00 Room Air 06/07/19 12:00 97.7 95 18 117/60 (79) 98 06/07/19 12:00 81 06/07/19 12:00 Room Air Intake and Output 06/07/19 06/08/19 19:00 07:00 Intake Total 300 ml 860 ml Output Total 200 ml Balance 100 ml 860 ml Intake Free Water 200 ml Tube Feeding 300 ml 660 ml Output Urine Total 200 ml # Bowel Movements 1 Laboratory Tests 06/08/19 04:30: White Blood Count 9.0, Red Blood Count 3.42L, Hemoglobin 10.3L, Hematocrit 30.0L , Mean Corpuscular Volume 88, Mean Corpuscular Hemoglobin 30.2, Mean Corpuscular Hemoglobin Concent 34.4, Red Cell Distribution Width 14.3, Platelet Count 269, Mean Platelet Volume 7.1, Neutrophils (%) (Auto) 58.3, Lymphocytes (% ) (Auto) 24.1, Monocytes (%) (Auto) 14.8H, Eosinophils (%) (Auto) 2.0, Basophils (%) (Auto) 0.8, Sodium Level 146H, Potassium Level 5.4H, Chloride Level 109H, Carbon Dioxide Level 24, Anion Gap 13, Blood Urea Nitrogen 14, Creatinine 0.7, Estimat Glomerular Filtration Rate > 60, Glucose Level 83, Calcium Level 9.6, Magnesium Level 2.6H Height (Feet): 5 Height (Inches): 3.00 Weight (Pounds): 148 Objective General Appearance: NAD, awake, non-verbal HEENT: NCAT, dry MM Cardiovascular: normal rate, regular rhythm Respiratory/Chest: lungs clear, normal breath sounds, no accessory muscle usage Abdomen: non tender, soft, +PEG c/d/i Ext: no edema Tori Hill M.D. Jun 08, 2019 10:12
[2019-06-08] MEDS ORDERED: Sodium Polystyrene Sulfonate 15gm Powder ORAL SCH (10:30)
--- NOTE | 2019-06-08 11:03 | Infectious Diseases Prog Note ---
"Assessment/Plan Assessment/Plan antibiotics : none A 1. COVID 19 pneumonia s/p rx with hydroxychloroquine test + 4.8.20 2. fever improving 3. GI bleeding 4. diabetes mellitus 5. epilepsy 6. dementia 7. CVA 8. + blood cultures with coag neg staph | diphtheroids likely contaminated P 1. observe off antibiotics 2. will follow up cultures 3. continue isolation Subjective ROS Limited/Unobtainable: Yes Allergies: Coded Allergies: IODINE (Verified Allergy, Unknown, 11/10/17) Objective Vital Signs Last 24 Hour Vital Signs Date Time Temp Pulse Resp B/P (MAP) Pulse Ox O2 Delivery O2 Flow Rate FiO2 06/08/19 09:34 88 156/81 06/08/19 08:00 Room Air 06/08/19 08:00 71 06/08/19 07:57 97.7 88 20 156/81 (106) 99 06/08/19 04:00 Room Air 06/08/19 04:00 98.1 90 20 125/87 (100) 99 06/08/19 04:00 105 06/08/19 00:00 97.9 95 21 118/72 (87) 98 06/08/19 00:00 Room Air 06/08/19 00:00 73 06/07/19 20:00 90 06/07/19 20:00 97.7 82 19 113/75 (88) 97 06/07/19 20:00 Room Air 06/07/19 16:00 66 06/07/19 16:00 98.1 88 17 111/72 (85) 96 06/07/19 16:00 Room Air 06/07/19 12:00 97.7 95 18 117/60 (79) 98 06/07/19 12:00 81 06/07/19 12:00 Room Air Height (Feet): 5 Height (Inches): 3.00 Weight (Pounds): 148 Laboratory Tests Test 06/08/19 04:30 White Blood Count 9.0 K/UL (4.8-10.8) Red Blood Count 3.42 M/UL (4.20-5.40) L Hemoglobin 10.3 G/DL (12.0-16.0) L Hematocrit 30.0 % (37.0-47.0) L Mean Corpuscular Volume 88 FL (80-99) Mean Corpuscular Hemoglobin 30.2 PG (27.0-31.0) Mean Corpuscular Hemoglobin Concent 34.4 G/DL (32.0-36.0) Red Cell Distribution Width 14.3 % (11.6-14.8) Platelet Count 269 K/UL (150-450) Mean Platelet Volume 7.1 FL (6.5-10.1) Neutrophils (%) (Auto) 58.3 % (45.0-75.0) Lymphocytes (%) (Auto) 24.1 % (20.0-45.0) Monocytes (%) (Auto) 14.8 % (1.0-10.0) H Eosinophils (%) (Auto) 2.0 % (0.0-3.0) Basophils (%) (Auto) 0.8 % (0.0-2.0) Sodium Level 146 MMOL/L (136-145) H Potassium Level 5.4 MMOL/L (3.5-5.1) H Chloride Level 109 MMOL/L (98-107) H Carbon Dioxide Level 24 MMOL/L (21-32) Anion Gap 13 mmol/L (5-15) Blood Urea Nitrogen 14 mg/dL (7-18) Creatinine 0.7 MG/DL (0.55-1.30) Estimat Glomerular Filtration Rate > 60 mL/min (>60) Glucose Level 83 MG/DL (74-106) Calcium Level 9.6 MG/DL (8.5-10.1) Magnesium Level 2.6 MG/DL (1.8-2.4) H Current Medications Medications (Trade) Dose Ordered Sig/Claritza Route PRN Reason Start Time Stop Time Status Last Admin Dose Admin Acetaminophen (Tylenol) 650 mg Q4H PRN GT Mild Pain (Pain Scale 1-3) 06/02/19 01:00 06/29/19 13:29 06/07/19 08:48 Acetaminophen (Tylenol) 650 mg Q4H PRN GT T>100.4 06/02/19 01:00 06/29/19 13:29 Amlodipine Besylate (Norvasc) 10 mg DAILY GT 06/06/19 09:00 06/30/19 08:59 06/08/19 09:34 Apixaban (Eliquis) 2.5 mg BID ORAL 06/07/19 09:00 09/05/19 08:59 06/08/19 09:34 Dextrose (Dextrose 50%) 25 ml Q30M PRN IV Hypoglycemia 06/02/19 00:00 08/28/19 13:29 Dextrose (Dextrose 50%) 50 ml Q30M PRN IV Hypoglycemia 06/02/19 00:00 08/28/19 13:29 Escitalopram Oxalate (Lexapro) 10 mg DAILY GT 06/02/19 09:00 06/30/19 08:59 06/08/19 09:34 Magnesium Hydroxide (Mom) 30 ml DAILYPRN PRN ORAL Constipation 06/02/19 09:00 06/29/19 08:59 Pantoprazole (Protonix) 40 mg DAILY IVP 06/02/19 09:00 06/30/19 10:59 06/08/19 09:35 Pravastatin Sodium (Pravachol) 80 mg BEDTIME GT 06/02/19 21:00 06/29/19 20:59 06/07/19 20:06 Risperidone (RisperDAL) 1 mg BID GT 06/02/19 09:00 07/14/19 17:59 06/08/19 09:34 Sodium Polystyrene Sulfonate (Kayexalate) 45 gm ONCE ORAL 06/08/19 10:30 06/08/19 11:30 06/08/19 10:33 Valproic Acid (Depakene) 250 mg Q12HR GT 06/02/19 09:00 06/29/19 20:59 06/08/19 09:35 Radha Dunham MD Jun 08, 2019 11:03"
--- NOTE | 2019-06-08 11:47 | Pulmonology Progress Note ---
Assessment/Plan Assessment/Plan IMPRESSION: 1. Rectal bleeding. 2. Right lung pneumonia. 3. CVA. 4. [facility] resident. DISCUSSION: Repeat COVID 19 positive I will follow as paper rewinder. Abx per ID Continue oxygen prn and pulmonary hygiene. Subjective Interval Events: None new Constitutional: Reports: no symptoms HEENT: Repors: no symptoms Respiratory: Reports: no symptoms Cardiovascular: Reports: no symptoms Gastrointestinal/Abdominal: Reports: no symptoms Allergies: Coded Allergies: IODINE (Verified Allergy, Unknown, 11/10/17) Objective Last 24 Hour Vital Signs Date Time Temp Pulse Resp B/P (MAP) Pulse Ox O2 Delivery O2 Flow Rate FiO2 06/08/19 09:34 88 156/81 06/08/19 08:00 Room Air 06/08/19 08:00 71 06/08/19 07:57 97.7 88 20 156/81 (106) 99 06/08/19 04:00 Room Air 06/08/19 04:00 98.1 90 20 125/87 (100) 99 06/08/19 04:00 105 06/08/19 00:00 97.9 95 21 118/72 (87) 98 06/08/19 00:00 Room Air 06/08/19 00:00 73 06/07/19 20:00 90 06/07/19 20:00 97.7 82 19 113/75 (88) 97 06/07/19 20:00 Room Air 06/07/19 16:00 66 06/07/19 16:00 98.1 88 17 111/72 (85) 96 06/07/19 16:00 Room Air 06/07/19 12:00 97.7 95 18 117/60 (79) 98 06/07/19 12:00 81 06/07/19 12:00 Room Air Intake and Output 06/07/19 06/08/19 19:00 07:00 Intake Total 300 ml 860 ml Output Total 200 ml Balance 100 ml 860 ml Intake Free Water 200 ml Tube Feeding 300 ml 660 ml Output Urine Total 200 ml # Bowel Movements 1 General Appearance: no acute distress HEENT: normocephalic Respiratory/Chest: chest wall non-tender Cardiovascular: normal peripheral pulses Abdomen: normal bowel sounds Laboratory Tests 06/08/19 04:30: White Blood Count 9.0, Red Blood Count 3.42L, Hemoglobin 10.3L, Hematocrit 30.0L , Mean Corpuscular Volume 88, Mean Corpuscular Hemoglobin 30.2, Mean Corpuscular Hemoglobin Concent 34.4, Red Cell Distribution Width 14.3, Platelet Count 269, Mean Platelet Volume 7.1, Neutrophils (%) (Auto) 58.3, Lymphocytes (% ) (Auto) 24.1, Monocytes (%) (Auto) 14.8H, Eosinophils (%) (Auto) 2.0, Basophils (%) (Auto) 0.8, Sodium Level 146H, Potassium Level 5.4H, Chloride Level 109H, Carbon Dioxide Level 24, Anion Gap 13, Blood Urea Nitrogen 14, Creatinine 0.7, Estimat Glomerular Filtration Rate > 60, Glucose Level 83, Calcium Level 9.6, Magnesium Level 2.6H Current Medications Medications (Trade) Dose Ordered Sig/Claritza Route PRN Reason Start Time Stop Time Status Last Admin Dose Admin Acetaminophen (Tylenol) 650 mg Q4H PRN GT Mild Pain (Pain Scale 1-3) 06/02/19 01:00 06/29/19 13:29 06/07/19 08:48 Acetaminophen (Tylenol) 650 mg Q4H PRN GT T>100.4 06/02/19 01:00 06/29/19 13:29 Amlodipine Besylate (Norvasc) 10 mg DAILY GT 06/06/19 09:00 06/30/19 08:59 06/08/19 09:34 Apixaban (Eliquis) 2.5 mg BID ORAL 06/07/19 09:00 09/05/19 08:59 06/08/19 09:34 Dextrose (Dextrose 50%) 25 ml Q30M PRN IV Hypoglycemia 06/02/19 00:00 08/28/19 13:29 Dextrose (Dextrose 50%) 50 ml Q30M PRN IV Hypoglycemia 06/02/19 00:00 08/28/19 13:29 Escitalopram Oxalate (Lexapro) 10 mg DAILY GT 06/02/19 09:00 06/30/19 08:59 06/08/19 09:34 Magnesium Hydroxide (Mom) 30 ml DAILYPRN PRN ORAL Constipation 06/02/19 09:00 06/29/19 08:59 Pantoprazole (Protonix) 40 mg DAILY IVP 06/02/19 09:00 06/30/19 10:59 06/08/19 09:35 Pravastatin Sodium (Pravachol) 80 mg BEDTIME GT 06/02/19 21:00 06/29/19 20:59 06/07/19 20:06 Risperidone (RisperDAL) 1 mg BID GT 06/02/19 09:00 07/14/19 17:59 06/08/19 09:34 Valproic Acid (Depakene) 250 mg Q12HR GT 06/02/19 09:00 06/29/19 20:59 06/08/19 09:35 Horace Landaverde MD Jun 08, 2019 11:47
[2019-06-08 11:54] VITALS: BP 121/71
[2019-06-08] MEDS ORDERED: Milk of Magnesia 30ml Ud ORAL PRN (13:04)
[2019-06-08] MEDS ORDERED: Acetaminophen 650mg/20.3ml GT PRN ×2 (13:04)
[2019-06-08] MEDS ORDERED: Milk of Magnesia 30ml Ud GT PRN (13:15)
--- NOTE | 2019-06-08 13:24 | Hematology/Onc Progress Note ---
Assessment/Plan Assessment/Plan Assessment and Recs: # Pancytopenia with Acute blood loss anemia, currently has been progressing is due to COVID19 --> likely related to underlying infection, covid rule out at this time --> hepatitis and hiv are BOTH NEG --> us of the abdomen is pending, r/o hsm and cirrhosisnone noted and gtube in place noted --> smear of the periphery is pending --> abx as per id, started --> pressors prn --> 06/01 for colo by Olimpia showed 3 polyps --> repeat colo in 3 months # Acute GIB, with decrease in h/h --> no evidence of hemolyis is noted --> transfuse as needed, hgb goal >7 --> IVF hgb trend 10.4-->11.5-->10.5-->11 --> Protonix given in ED --> GI consulted, Dr Doan: GT lavage neg, transfuse plts, prep for possible colonoscopy, also per surg # Fever liekly due to covid 19++ --> currently is on iso --> COVID 19++ --> KUB negative --> CXR ?right lung infiltrate --> per pulm # DMT2 --> accuchecks qac and qhs --> iss prn # HTN --> sbp goal is less than 140 --> as per cards # HLD --> holding ASA given acute GIB # H/o Epilepsy # Seizures # Dementia # Dysphagia s/p PEG --> on tfs # DVT PPx: SCDs given acute GIB Appreciate consultation and dw Rn Subjective Constitutional: Denies: no symptoms, chills, fever, malaise, weakness, other HEENT: Denies: no symptoms, eye pain, blurred vision, tearing, double vision, ear pain, ear discharge, nose pain, nose congestion, throat pain, throat swelling, mouth pain, mouth swelling, other Cardiovascular: Denies: no symptoms, chest pain, edema, irregular heart rate, lightheadedness, palpitations, syncope, other Respiratory: Denies: no symptoms, cough, shortness of breath, SOB with excertion, SOB at rest, sputum, wheezing, other Genitourinary: Denies: no symptoms, burning, discharge, frequency, flank pain, hematuria, incontinence, pain, urgency, other Neurologic/Psychiatric: Denies: no symptoms, anxiety, depressed, emotional problems, headache, numbness, paresthesia, pre-existing deficit, seizure, tingling, tremors, weakness, other Endocrine: Denies: no symptoms, excessive sweating, flushing, intolerance to cold, intolerance to heat, increased hunger, increased thirst, increased urine, unexplained weight gain, unexplained weight loss, other Hematologic/Lymphatic: Denies: no symptoms, anemia, easy bleeding, easy bruising, adenopathy, other Allergies: Coded Allergies: IODINE (Verified Allergy, Unknown, 11/10/17) Subjective 05/31 is for colo tomorrow, labs reviewed, hgb stable 06/01 as per gi eval, for scope, no night sweats, dw rn 06/02 no major changes, labs reviewed, no bleeding, colo done yesterday, 3 polyps noted 06/05 asleep, no bleeding or chills, labs have been noted, no night swearts, hgb 10.5 06/06 no major changes, no bleeding, labs reviewed, no night sweats 06/07 no events, no bleeding or night sweats, labs noted, now with COVID++ Objective Objective Current Medications Medications (Trade) Dose Ordered Sig/Claritza Route PRN Reason Start Time Stop Time Status Last Admin Dose Admin Acetaminophen (Tylenol) 650 mg Q4H PRN GT Mild Pain (Pain Scale 1-3) 06/08/19 13:04 07/08/19 13:03 Acetaminophen (Tylenol) 650 mg Q4H PRN GT T>100.4 06/08/19 13:04 07/08/19 13:03 Amlodipine Besylate (Norvasc) 10 mg DAILY GT 06/09/19 09:00 06/30/19 08:59 Apixaban (Eliquis) 2.5 mg BID ORAL 06/08/19 18:00 09/05/19 08:59 Dextrose (Dextrose 50%) 25 ml Q30M PRN IV Hypoglycemia 06/08/19 13:30 08/28/19 13:29 Dextrose (Dextrose 50%) 50 ml Q30M PRN IV Hypoglycemia 06/08/19 13:30 08/28/19 13:29 Escitalopram Oxalate (Lexapro) 10 mg DAILY GT 06/09/19 09:00 06/30/19 08:59 Magnesium Hydroxide (Mom) 30 ml DAILYPRN PRN GT Constipation 06/08/19 13:15 07/08/19 13:03 Pantoprazole (Protonix) 40 mg DAILY IVP 06/09/19 09:00 06/30/19 10:59 Pravastatin Sodium (Pravachol) 80 mg BEDTIME GT 06/08/19 21:00 06/29/19 20:59 Risperidone (RisperDAL) 1 mg BID GT 06/08/19 18:00 07/14/19 17:59 Valproic Acid (Depakene) 250 mg Q12HR GT 06/08/19 21:00 06/29/19 20:59 Last 24 Hour Vital Signs Date Time Temp Pulse Resp B/P (MAP) Pulse Ox O2 Delivery O2 Flow Rate FiO2 06/08/19 12:00 Room Air 06/08/19 11:54 98.0 78 20 121/71 (88) 98 06/08/19 09:34 88 156/81 06/08/19 08:00 Room Air 06/08/19 08:00 71 06/08/19 07:57 97.7 88 20 156/81 (106) 99 06/08/19 04:00 Room Air 06/08/19 04:00 98.1 90 20 125/87 (100) 99 06/08/19 04:00 105 06/08/19 00:00 97.9 95 21 118/72 (87) 98 06/08/19 00:00 Room Air 06/08/19 00:00 73 06/07/19 20:00 90 06/07/19 20:00 97.7 82 19 113/75 (88) 97 06/07/19 20:00 Room Air 06/07/19 16:00 66 06/07/19 16:00 98.1 88 17 111/72 (85) 96 06/07/19 16:00 Room Air 06/07/19 12:00 97.7 95 18 117/60 (79) 98 06/07/19 12:00 81 06/07/19 12:00 Room Air 06/07/19 08:43 101 121/86 06/07/19 08:00 Room Air 06/07/19 08:00 100.0 93 18 121/86 (98) 98 06/07/19 08:00 93 06/07/19 04:00 Room Air 06/07/19 04:00 75 06/07/19 04:00 98.4 89 18 110/56 (74) 95 06/07/19 00:00 69 06/07/19 00:00 97.2 73 20 133/70 (91) 95 06/07/19 00:00 Room Air 06/06/19 20:00 98.6 71 18 117/63 (81) 98 06/06/19 20:00 75 06/06/19 20:00 Room Air 06/06/19 16:00 Room Air 06/06/19 16:00 97.3 77 20 150/77 (101) 98 06/06/19 15:09 74 Intake and Output 06/07/19 06/08/19 19:00 07:00 Intake Total 300 ml 860 ml Output Total 200 ml Balance 100 ml 860 ml Intake Free Water 200 ml Tube Feeding 300 ml 660 ml Output Urine Total 200 ml # Bowel Movements 1 Labs Test 06/06/19 04:22 06/07/19 05:00 06/08/19 04:30 White Blood Count 7.4 K/UL (4.8-10.8) 8.0 K/UL (4.8-10.8) 9.0 K/UL (4.8-10.8) Red Blood Count 3.63 M/UL (4.20-5.40) 3.89 M/UL (4.20-5.40) 3.42 M/UL (4.20-5.40) Hemoglobin 10.5 G/DL (12.0-16.0) 11.5 G/DL (12.0-16.0) 10.3 G/DL (12.0-16.0) Hematocrit 31.1 % (37.0-47.0) 34.0 % (37.0-47.0) 30.0 % (37.0-47.0) Mean Corpuscular Volume 86 FL (80-99) 87 FL (80-99) 88 FL (80-99) Mean Corpuscular Hemoglobin 28.9 PG (27.0-31.0) 29.5 PG (27.0-31.0) 30.2 PG (27.0-31.0) Mean Corpuscular Hemoglobin Concent 33.7 G/DL (32.0-36.0) 33.8 G/DL (32.0-36.0) 34.4 G/DL (32.0-36.0) Red Cell Distribution Width 13.7 % (11.6-14.8) 13.9 % (11.6-14.8) 14.3 % (11.6-14.8) Platelet Count 230 K/UL (150-450) 229 K/UL (150-450) 269 K/UL (150-450) Mean Platelet Volume 7.1 FL (6.5-10.1) 7.3 FL (6.5-10.1) 7.1 FL (6.5-10.1) Neutrophils (%) (Auto) 64.9 % (45.0-75.0) 64.7 % (45.0-75.0) 58.3 % (45.0-75.0) Lymphocytes (%) (Auto) 17.6 % (20.0-45.0) 19.6 % (20.0-45.0) 24.1 % (20.0-45.0) Monocytes (%) (Auto) 16.1 % (1.0-10.0) 12.1 % (1.0-10.0) 14.8 % (1.0-10.0) Eosinophils (%) (Auto) 0.7 % (0.0-3.0) 2.2 % (0.0-3.0) 2.0 % (0.0-3.0) Basophils (%) (Auto) 0.7 % (0.0-2.0) 1.4 % (0.0-2.0) 0.8 % (0.0-2.0) Sodium Level 145 MMOL/L (136-145) 142 MMOL/L (136-145) 146 MMOL/L (136-145) Potassium Level 4.5 MMOL/L (3.5-5.1) 5.4 MMOL/L (3.5-5.1) 5.4 MMOL/L (3.5-5.1) Chloride Level 109 MMOL/L (98-107) 107 MMOL/L (98-107) 109 MMOL/L (98-107) Carbon Dioxide Level 25 MMOL/L (21-32) 27 MMOL/L (21-32) 24 MMOL/L (21-32) Blood Urea Nitrogen 11 mg/dL (7-18) 15 mg/dL (7-18) 14 mg/dL (7-18) Creatinine 0.6 MG/DL (0.55-1.30) 0.7 MG/DL (0.55-1.30) 0.7 MG/DL (0.55-1.30) Estimat Glomerular Filtration Rate > 60 mL/min (>60) > 60 mL/min (>60) > 60 mL/min (>60) Glucose Level 122 MG/DL (74-106) 141 MG/DL (74-106) 83 MG/DL (74-106) Calcium Level 8.7 MG/DL (8.5-10.1) 9.5 MG/DL (8.5-10.1) 9.6 MG/DL (8.5-10.1) Anion Gap 8 mmol/L (5-15) 13 mmol/L (5-15) Magnesium Level 2.6 MG/DL (1.8-2.4) Height (Feet): 5 Height (Inches): 3.00 Weight (Pounds): 148 Objective Physical Exam Physical Exam Narrative General: NAD, A&O x 1, awake, alert, noncommunicative HEENT: NCAT, EOMi, dry mucous membranes CV: RRR, no murmurs, rubs, or gallops Pulm: CTAB, No wheezes, rhonchi, or rales, no accessory muscle usage or conversational dyspnea GI: Soft, nontender, nondistended, bowel sounds present, +PEG c/d/i Neuro: Limited due to patient communication/participation Ext: No lower extremity edema bilaterally Skin: no rashes lesions or ulcers Timothy Wong MD Jun 08, 2019 13:24
--- NOTE | 2019-06-08 13:42 | Cardiac Electrophysiology PN ---
Assessment/Plan Assessment/Plan 1. Bradycardia. Resolved off Coreg. Echo still pending as COVID still positive 2. Hypertension, on amlodipine 10 daily 3. Hyperlipidemia, on Pravachol 4. Rectal bleeding. S/P Colonoscopy by Dr. Doan that showed diverticulitis 5. History of CVA. 6. S/P PEG 7. COVID PNA, positive on 06/01/19 completed Plaquenil. QTc 455 DW RN Subjective Subjective In SR in isolation as second COVID was positive. Saturation 95% on Room Air. Comfortable in NAD.Transfer to tele Objective Last 24 Hour Vital Signs Date Time Temp Pulse Resp B/P (MAP) Pulse Ox O2 Delivery O2 Flow Rate FiO2 06/08/19 12:00 Room Air 06/08/19 11:54 98.0 78 20 121/71 (88) 98 06/08/19 09:34 88 156/81 06/08/19 08:00 Room Air 06/08/19 08:00 71 06/08/19 07:57 97.7 88 20 156/81 (106) 99 06/08/19 04:00 Room Air 06/08/19 04:00 98.1 90 20 125/87 (100) 99 06/08/19 04:00 105 06/08/19 00:00 97.9 95 21 118/72 (87) 98 06/08/19 00:00 Room Air 06/08/19 00:00 73 06/07/19 20:00 90 06/07/19 20:00 97.7 82 19 113/75 (88) 97 06/07/19 20:00 Room Air 06/07/19 16:00 66 06/07/19 16:00 98.1 88 17 111/72 (85) 96 06/07/19 16:00 Room Air Intake and Output 06/07/19 06/08/19 19:00 07:00 Intake Total 300 ml 860 ml Output Total 200 ml Balance 100 ml 860 ml Intake Free Water 200 ml Tube Feeding 300 ml 660 ml Output Urine Total 200 ml # Bowel Movements 1 Laboratory Tests Test 06/08/19 04:30 White Blood Count 9.0 K/UL (4.8-10.8) Red Blood Count 3.42 M/UL (4.20-5.40) L Hemoglobin 10.3 G/DL (12.0-16.0) L Hematocrit 30.0 % (37.0-47.0) L Mean Corpuscular Volume 88 FL (80-99) Mean Corpuscular Hemoglobin 30.2 PG (27.0-31.0) Mean Corpuscular Hemoglobin Concent 34.4 G/DL (32.0-36.0) Red Cell Distribution Width 14.3 % (11.6-14.8) Platelet Count 269 K/UL (150-450) Mean Platelet Volume 7.1 FL (6.5-10.1) Neutrophils (%) (Auto) 58.3 % (45.0-75.0) Lymphocytes (%) (Auto) 24.1 % (20.0-45.0) Monocytes (%) (Auto) 14.8 % (1.0-10.0) H Eosinophils (%) (Auto) 2.0 % (0.0-3.0) Basophils (%) (Auto) 0.8 % (0.0-2.0) Sodium Level 146 MMOL/L (136-145) H Potassium Level 5.4 MMOL/L (3.5-5.1) H Chloride Level 109 MMOL/L (98-107) H Carbon Dioxide Level 24 MMOL/L (21-32) Anion Gap 13 mmol/L (5-15) Blood Urea Nitrogen 14 mg/dL (7-18) Creatinine 0.7 MG/DL (0.55-1.30) Estimat Glomerular Filtration Rate > 60 mL/min (>60) Glucose Level 83 MG/DL (74-106) Calcium Level 9.6 MG/DL (8.5-10.1) Magnesium Level 2.6 MG/DL (1.8-2.4) H Objective HEAD AND NECK: No JVD, on room air LUNGS: Coarse rhonchi. CARDIOVASCULAR: Regular S1 and S2. Bradycardic. ABDOMEN: Soft and status post G-tube. EXTREMITIES: No pitting edema. Telly Gottlieb MD Jun 08, 2019 13:42
[2019-06-08 16:00] VITALS: BP 137/80
[2019-06-08 20:00] VITALS: BP 132/75
--- NOTE | 2019-06-08 22:03 | Neurology Progress Note ---
Interim History Interim History ROS Limited/Unobtainable: Yes Interim History no seizures Objective Physical Exam Last Vital Signs Date Time Temp Pulse Resp B/P (MAP) Pulse Ox O2 Delivery O2 Flow Rate FiO2 06/08/19 16:00 96.6 80 19 137/80 (99) 96 06/08/19 16:00 Room Air 06/02/19 11:30 4 05/30/19 22:10 94 Laboratory Tests Test 06/08/19 04:30 White Blood Count 9.0 K/UL (4.8-10.8) Red Blood Count 3.42 M/UL (4.20-5.40) L Hemoglobin 10.3 G/DL (12.0-16.0) L Hematocrit 30.0 % (37.0-47.0) L Mean Corpuscular Volume 88 FL (80-99) Mean Corpuscular Hemoglobin 30.2 PG (27.0-31.0) Mean Corpuscular Hemoglobin Concent 34.4 G/DL (32.0-36.0) Red Cell Distribution Width 14.3 % (11.6-14.8) Platelet Count 269 K/UL (150-450) Mean Platelet Volume 7.1 FL (6.5-10.1) Neutrophils (%) (Auto) 58.3 % (45.0-75.0) Lymphocytes (%) (Auto) 24.1 % (20.0-45.0) Monocytes (%) (Auto) 14.8 % (1.0-10.0) H Eosinophils (%) (Auto) 2.0 % (0.0-3.0) Basophils (%) (Auto) 0.8 % (0.0-2.0) Sodium Level 146 MMOL/L (136-145) H Potassium Level 5.4 MMOL/L (3.5-5.1) H Chloride Level 109 MMOL/L (98-107) H Carbon Dioxide Level 24 MMOL/L (21-32) Anion Gap 13 mmol/L (5-15) Blood Urea Nitrogen 14 mg/dL (7-18) Creatinine 0.7 MG/DL (0.55-1.30) Estimat Glomerular Filtration Rate > 60 mL/min (>60) Glucose Level 83 MG/DL (74-106) Calcium Level 9.6 MG/DL (8.5-10.1) Magnesium Level 2.6 MG/DL (1.8-2.4) H Neurologic Exam Objective lethargic, withdraws a to pain contracture in all 4. non verbal cc 36 min Impression/Recommendations Problems: (1) Episode of generalized weakness (2) Encephalopathy (3) Constipation (4) Hypercalcemia (5) Dysphagia (6) Altered level of consciousness (7) Toxic encephalopathy (8) Thrombocytopenia (9) GIB (gastrointestinal bleeding) (10) Lower GI bleed (11) Epilepsy (12) Acute febrile illness (13) CVA (cerebral vascular accident) (14) Suspected 2019 novel coronavirus infection (15) Diabetes mellitus (16) HTN (hypertension) Status: stable Diagnostic Impression ICU level of care MAp > 65 neuro checks q2h ATB per primary cont depakote 500 mg bid rule out covid19 del precautions no need for LP holding antiplatelets Larry Juarez MD Jun 08, 2019 22:03
[2019-06-09] VITALS: BP 130/71
[2019-06-09 04:00] VITALS: BP 129/72
[2019-06-09 05:26] LABS: EOSINOPHILS % (AUTO) 0.4 % (0.0-3.0); HEMATOCRIT 31.5 % (37.0-47.0); HEMOGLOBIN 10.6 G/DL (12.0-16.0); LYMPHOCYTES % (AUTO) 16.2 % (20.0-45.0); MEAN CORPUSCULAR VOLUME 88 FL (80-99); MONOCYTES % (AUTO) 12.3 % (1.0-10.0); NEUTROPHILS % (AUTO) 70.2 % (45.0-75.0); PLATELET COUNT 283 K/UL (150-450); RED CELL DISTRIBUTION WIDTH 14.6 % (11.6-14.8); WHITE BLOOD COUNT 7.6 K/UL (4.8-10.8)
[2019-06-09 05:47] LABS: ANION GAP 10 mmol/L (5-15); BLOOD UREA NITROGEN 16 mg/dL (7-18); CALCIUM 8.9 MG/DL (8.5-10.1); CARBON DIOXIDE 28 MMOL/L (21-32); CHLORIDE 108 MMOL/L (98-107); CREATININE 0.8 MG/DL (0.55-1.30); POTASSIUM 4.4 MMOL/L (3.5-5.1); SODIUM 146 MMOL/L (136-145)
[2019-06-09 08:00] VITALS: BP 147/72
[2019-06-09] MEDS: Eliquis 2.5mg tablet ORAL SCH (08:50)
[2019-06-09] MEDS: Valproic Acid 250mg/5ml Liquid GT SCH ×2 (08:51→21:03)
[2019-06-09] MEDS: Pantoprazole Inj IVP SCH (09:17)
--- NOTE | 2019-06-09 09:32 | General Progress Note ---
Assessment/Plan Problem List: (1) Suspected 2019 novel coronavirus infection ICD Codes: R68.89 - Other general symptoms and signs SNOMED: 262741554 (2) Lower GI bleed ICD Codes: K92.2 - Gastrointestinal hemorrhage, unspecified SNOMED: 26983776 (3) Thrombocytopenia ICD Codes: D69.6 - Thrombocytopenia, unspecified SNOMED: 253401361 (4) Diabetes mellitus ICD Codes: E11.9 - Type 2 diabetes mellitus without complications SNOMED: 05100904 (5) HTN (hypertension) ICD Codes: I10 - Essential (primary) hypertension SNOMED: 82824810 Status: stable Assessment/Plan: s/p colonoscopy last week now COVED +!! on Plaquenil per ID labs for am on Eliquis now will fu Subjective ROS Limited/Unobtainable: No Allergies: Coded Allergies: IODINE (Verified Allergy, Unknown, 11/10/17) Objective Last 24 Hour Vital Signs Date Time Temp Pulse Resp B/P (MAP) Pulse Ox O2 Delivery O2 Flow Rate FiO2 06/09/19 08:50 69 160/75 06/09/19 04:00 89 06/09/19 04:00 98.6 95 19 129/72 (91) 97 06/09/19 00:00 98 06/09/19 00:00 98.8 102 18 130/71 (90) 96 06/08/19 20:00 Room Air 06/08/19 20:00 98.1 96 19 132/75 (94) 95 06/08/19 20:00 119 06/08/19 16:00 96.6 80 19 137/80 (99) 96 06/08/19 16:00 115 06/08/19 16:00 Room Air 06/08/19 12:00 91 06/08/19 12:00 Room Air 06/08/19 11:54 98.0 78 20 121/71 (88) 98 06/08/19 09:34 88 156/81 Intake and Output 06/08/19 06/09/19 19:00 07:00 Intake Total 920 ml 980 ml Balance 920 ml 980 ml Intake Free Water 200 ml 320 ml Tube Feeding 720 ml 660 ml Laboratory Tests 06/09/19 04:00: White Blood Count 7.6, Red Blood Count 3.60L, Hemoglobin 10.6L, Hematocrit 31.5L , Mean Corpuscular Volume 88, Mean Corpuscular Hemoglobin 29.4, Mean Corpuscular Hemoglobin Concent 33.6, Red Cell Distribution Width 14.6, Platelet Count 283, Mean Platelet Volume 6.7, Neutrophils (%) (Auto) 70.2, Lymphocytes (% ) (Auto) 16.2L, Monocytes (%) (Auto) 12.3H, Eosinophils (%) (Auto) 0.4, Basophils (%) (Auto) 1.0, D-Dimer 2.85H, Sodium Level 146H, Potassium Level 4.4 , Chloride Level 108H, Carbon Dioxide Level 28, Anion Gap 10, Blood Urea Nitrogen 16, Creatinine 0.8, Estimat Glomerular Filtration Rate > 60, Glucose Level 156H, Calcium Level 8.9 Height (Feet): 5 Height (Inches): 3.00 Weight (Pounds): 152 General Appearance: no apparent distress EENT: normal ENT inspection Neck: normal alignment Cardiovascular: normal rate Respiratory/Chest: decreased breath sounds Abdomen: normal bowel sounds, non tender, soft Extremities: non-tender Thang Doan MD Jun 09, 2019 09:32
--- NOTE | 2019-06-09 10:43 | Cardiac Electrophysiology PN ---
Assessment/Plan Assessment/Plan 1. Bradycardia. Resolved off Coreg. Echo still pending as COVID still positive 2. Hypertension, on amlodipine 10 daily. Add Lisinopril 10 daily 3. Hyperlipidemia, on Pravachol 4. Rectal bleeding. S/P Colonoscopy by Dr. Doan that showed diverticulitis 5. History of CVA. 6. S/P PEG 7. COVID PNA, positive on 06/01/19 completed Plaquenil. QTc 455 Repeat testing results pending DW RN Subjective Subjective In SR in isolation as second COVID was positive. Saturation 95% on Room Air. Comfortable in NAD.Re-swabbed yesterday for Covid. Bursts of sinus tach 120s.BP mildly elevated Objective Last 24 Hour Vital Signs Date Time Temp Pulse Resp B/P (MAP) Pulse Ox O2 Delivery O2 Flow Rate FiO2 06/09/19 08:50 69 160/75 06/09/19 04:00 89 06/09/19 04:00 98.6 95 19 129/72 (91) 97 06/09/19 00:00 98 06/09/19 00:00 98.8 102 18 130/71 (90) 96 06/08/19 20:00 Room Air 06/08/19 20:00 98.1 96 19 132/75 (94) 95 06/08/19 20:00 119 06/08/19 16:00 96.6 80 19 137/80 (99) 96 06/08/19 16:00 115 06/08/19 16:00 Room Air 06/08/19 12:00 91 06/08/19 12:00 Room Air 06/08/19 11:54 98.0 78 20 121/71 (88) 98 Intake and Output 06/08/19 06/09/19 19:00 07:00 Intake Total 920 ml 980 ml Balance 920 ml 980 ml Intake Free Water 200 ml 320 ml Tube Feeding 720 ml 660 ml Laboratory Tests Test 06/09/19 04:00 White Blood Count 7.6 K/UL (4.8-10.8) Red Blood Count 3.60 M/UL (4.20-5.40) L Hemoglobin 10.6 G/DL (12.0-16.0) L Hematocrit 31.5 % (37.0-47.0) L Mean Corpuscular Volume 88 FL (80-99) Mean Corpuscular Hemoglobin 29.4 PG (27.0-31.0) Mean Corpuscular Hemoglobin Concent 33.6 G/DL (32.0-36.0) Red Cell Distribution Width 14.6 % (11.6-14.8) Platelet Count 283 K/UL (150-450) Mean Platelet Volume 6.7 FL (6.5-10.1) Neutrophils (%) (Auto) 70.2 % (45.0-75.0) Lymphocytes (%) (Auto) 16.2 % (20.0-45.0) L Monocytes (%) (Auto) 12.3 % (1.0-10.0) H Eosinophils (%) (Auto) 0.4 % (0.0-3.0) Basophils (%) (Auto) 1.0 % (0.0-2.0) D-Dimer 2.85 mg/L FEU (0.00-0.49) H Sodium Level 146 MMOL/L (136-145) H Potassium Level 4.4 MMOL/L (3.5-5.1) Chloride Level 108 MMOL/L (98-107) H Carbon Dioxide Level 28 MMOL/L (21-32) Anion Gap 10 mmol/L (5-15) Blood Urea Nitrogen 16 mg/dL (7-18) Creatinine 0.8 MG/DL (0.55-1.30) Estimat Glomerular Filtration Rate > 60 mL/min (>60) Glucose Level 156 MG/DL (74-106) H Calcium Level 8.9 MG/DL (8.5-10.1) Objective HEAD AND NECK: No JVD, on room air LUNGS: Coarse rhonchi. CARDIOVASCULAR: Regular S1 and S2. Bradycardic. ABDOMEN: Soft and status post G-tube. EXTREMITIES: No pitting edema. Telly Gottlieb MD Jun 09, 2019 10:43
--- NOTE | 2019-06-09 11:14 | Hematology/Onc Progress Note ---
Assessment/Plan Assessment/Plan Assessment and Recs: # Pancytopenia with Acute blood loss anemia, currently has been progressing is due to COVID19 --> likely related to underlying infection, covid rule out at this time --> hepatitis and hiv are BOTH NEG --> us of the abdomen is pending, r/o hsm and cirrhosisnone noted and gtube in place noted --> smear of the periphery is pending->reviewed no schistocytes seen --> abx as per id, started --> pressors prn --> 06/01 for colo by Olimpia showed 3 polyps/diverticulitis --> repeat colo in 3 months # Acute GIB, with decrease in h/h --> no evidence of hemolyis is noted --> transfuse as needed, hgb goal >7 --> IVF hgb trend 10.4-->11.5-->10.5-->11 --> Protonix given in ED --> GI consulted, Dr Doan: GT lavage neg, transfuse plts, prep for possible colonoscopy, also per surg # Fever liekly due to covid 19++ --> currently is on iso --> COVID 19++ --> KUB negative --> CXR ?right lung infiltrate --> per pulm # DMT2 --> accuchecks qac and qhs --> iss prn # HTN --> sbp goal is less than 140 --> as per cards # HLD --> holding ASA given acute GIB # H/o Epilepsy # Seizures # Dementia # Dysphagia s/p PEG --> on tfs # DVT PPx: SCDs given acute GIB Appreciate consultation and dw Rn Subjective Constitutional: Denies: no symptoms, chills, fever, malaise, weakness, other HEENT: Denies: no symptoms, eye pain, blurred vision, tearing, double vision, ear pain, ear discharge, nose pain, nose congestion, throat pain, throat swelling, mouth pain, mouth swelling, other Cardiovascular: Denies: no symptoms, chest pain, edema, irregular heart rate, lightheadedness, palpitations, syncope, other Respiratory: Denies: no symptoms, cough, shortness of breath, SOB with excertion, SOB at rest, sputum, wheezing, other Gastrointestinal/Abdominal: Denies: no symptoms, abdomen distended, abdominal pain, black stools, tarry stools, blood in stool, constipated, diarrhea, difficulty swallowing, nausea, poor appetite, poor fluid intake, rectal bleeding , vomiting, other Genitourinary: Denies: no symptoms, burning, discharge, frequency, flank pain, hematuria, incontinence, pain, urgency, other Neurologic/Psychiatric: Denies: no symptoms, anxiety, depressed, emotional problems, headache, numbness, paresthesia, pre-existing deficit, seizure, tingling, tremors, weakness, other Endocrine: Denies: no symptoms, excessive sweating, flushing, intolerance to cold, intolerance to heat, increased hunger, increased thirst, increased urine, unexplained weight gain, unexplained weight loss, other Allergies: Coded Allergies: IODINE (Verified Allergy, Unknown, 11/10/17) Subjective 05/31 is for colo tomorrow, labs reviewed, hgb stable 06/01 as per gi eval, for scope, no night sweats, dw rn 06/02 no major changes, labs reviewed, no bleeding, colo done yesterday, 3 polyps noted 06/05 asleep, no bleeding or chills, labs have been noted, no night swearts, hgb 10.5 06/06 no major changes, no bleeding, labs reviewed, no night sweats 06/07 no events, no bleeding or night sweats, labs noted, now with COVID++ 06/08 labs noted, hgb is stable, dw gi, no bleeding at this time Objective Objective Current Medications Medications (Trade) Dose Ordered Sig/Claritza Route PRN Reason Start Time Stop Time Status Last Admin Dose Admin Acetaminophen (Tylenol) 650 mg Q4H PRN GT Mild Pain (Pain Scale 1-3) 06/08/19 13:04 07/08/19 13:03 Acetaminophen (Tylenol) 650 mg Q4H PRN GT T>100.4 06/08/19 13:04 07/08/19 13:03 Amlodipine Besylate (Norvasc) 10 mg DAILY GT 06/09/19 09:00 06/30/19 08:59 06/09/19 08:50 Apixaban (Eliquis) 2.5 mg BID ORAL 06/08/19 18:00 09/05/19 08:59 06/09/19 08:50 Dextrose (Dextrose 50%) 25 ml Q30M PRN IV Hypoglycemia 06/08/19 13:30 08/28/19 13:29 Dextrose (Dextrose 50%) 50 ml Q30M PRN IV Hypoglycemia 06/08/19 13:30 08/28/19 13:29 Escitalopram Oxalate (Lexapro) 10 mg DAILY GT 06/09/19 09:00 06/30/19 08:59 06/09/19 08:51 Lisinopril (ZestriL) 10 mg DAILY ORAL 06/10/19 09:00 07/10/19 08:59 Magnesium Hydroxide (Mom) 30 ml DAILYPRN PRN GT Constipation 06/08/19 13:15 07/08/19 13:03 Pantoprazole (Protonix) 40 mg DAILY IVP 06/09/19 09:00 06/30/19 10:59 06/09/19 09:17 Pravastatin Sodium (Pravachol) 80 mg BEDTIME GT 06/08/19 21:00 06/29/19 20:59 06/08/19 20:27 Risperidone (RisperDAL) 1 mg BID GT 06/08/19 18:00 07/14/19 17:59 06/09/19 08:50 Valproic Acid (Depakene) 250 mg Q12HR GT 06/08/19 21:00 06/29/19 20:59 06/09/19 08:51 Last 24 Hour Vital Signs Date Time Temp Pulse Resp B/P (MAP) Pulse Ox O2 Delivery O2 Flow Rate FiO2 06/09/19 09:00 Room Air 06/09/19 08:50 69 160/75 06/09/19 08:00 89 06/09/19 08:00 97.8 69 20 147/72 (97) 97 06/09/19 04:00 89 06/09/19 04:00 98.6 95 19 129/72 (91) 97 06/09/19 00:00 98 06/09/19 00:00 98.8 102 18 130/71 (90) 96 06/08/19 20:00 Room Air 06/08/19 20:00 98.1 96 19 132/75 (94) 95 06/08/19 20:00 119 06/08/19 16:00 96.6 80 19 137/80 (99) 96 06/08/19 16:00 115 06/08/19 16:00 Room Air 06/08/19 12:00 91 06/08/19 12:00 Room Air 06/08/19 11:54 98.0 78 20 121/71 (88) 98 06/08/19 09:34 88 156/81 06/08/19 08:00 Room Air 06/08/19 08:00 71 06/08/19 07:57 97.7 88 20 156/81 (106) 99 06/08/19 04:00 Room Air 06/08/19 04:00 98.1 90 20 125/87 (100) 99 06/08/19 04:00 105 06/08/19 00:00 97.9 95 21 118/72 (87) 98 06/08/19 00:00 Room Air 06/08/19 00:00 73 06/07/19 20:00 90 06/07/19 20:00 97.7 82 19 113/75 (88) 97 06/07/19 20:00 Room Air 06/07/19 16:00 66 06/07/19 16:00 98.1 88 17 111/72 (85) 96 06/07/19 16:00 Room Air 06/07/19 12:00 97.7 95 18 117/60 (79) 98 06/07/19 12:00 81 06/07/19 12:00 Room Air Intake and Output 06/08/19 06/09/19 19:00 07:00 Intake Total 920 ml 980 ml Balance 920 ml 980 ml Intake Free Water 200 ml 320 ml Tube Feeding 720 ml 660 ml Labs Test 06/07/19 05:00 06/08/19 04:30 06/09/19 04:00 White Blood Count 8.0 K/UL (4.8-10.8) 9.0 K/UL (4.8-10.8) 7.6 K/UL (4.8-10.8) Red Blood Count 3.89 M/UL (4.20-5.40) 3.42 M/UL (4.20-5.40) 3.60 M/UL (4.20-5.40) Hemoglobin 11.5 G/DL (12.0-16.0) 10.3 G/DL (12.0-16.0) 10.6 G/DL (12.0-16.0) Hematocrit 34.0 % (37.0-47.0) 30.0 % (37.0-47.0) 31.5 % (37.0-47.0) Mean Corpuscular Volume 87 FL (80-99) 88 FL (80-99) 88 FL (80-99) Mean Corpuscular Hemoglobin 29.5 PG (27.0-31.0) 30.2 PG (27.0-31.0) 29.4 PG (27.0-31.0) Mean Corpuscular Hemoglobin Concent 33.8 G/DL (32.0-36.0) 34.4 G/DL (32.0-36.0) 33.6 G/DL (32.0-36.0) Red Cell Distribution Width 13.9 % (11.6-14.8) 14.3 % (11.6-14.8) 14.6 % (11.6-14.8) Platelet Count 229 K/UL (150-450) 269 K/UL (150-450) 283 K/UL (150-450) Mean Platelet Volume 7.3 FL (6.5-10.1) 7.1 FL (6.5-10.1) 6.7 FL (6.5-10.1) Neutrophils (%) (Auto) 64.7 % (45.0-75.0) 58.3 % (45.0-75.0) 70.2 % (45.0-75.0) Lymphocytes (%) (Auto) 19.6 % (20.0-45.0) 24.1 % (20.0-45.0) 16.2 % (20.0-45.0) Monocytes (%) (Auto) 12.1 % (1.0-10.0) 14.8 % (1.0-10.0) 12.3 % (1.0-10.0) Eosinophils (%) (Auto) 2.2 % (0.0-3.0) 2.0 % (0.0-3.0) 0.4 % (0.0-3.0) Basophils (%) (Auto) 1.4 % (0.0-2.0) 0.8 % (0.0-2.0) 1.0 % (0.0-2.0) Sodium Level 142 MMOL/L (136-145) 146 MMOL/L (136-145) 146 MMOL/L (136-145) Potassium Level 5.4 MMOL/L (3.5-5.1) 5.4 MMOL/L (3.5-5.1) 4.4 MMOL/L (3.5-5.1) Chloride Level 107 MMOL/L (98-107) 109 MMOL/L (98-107) 108 MMOL/L (98-107) Carbon Dioxide Level 27 MMOL/L (21-32) 24 MMOL/L (21-32) 28 MMOL/L (21-32) Anion Gap 8 mmol/L (5-15) 13 mmol/L (5-15) 10 mmol/L (5-15) Blood Urea Nitrogen 15 mg/dL (7-18) 14 mg/dL (7-18) 16 mg/dL (7-18) Creatinine 0.7 MG/DL (0.55-1.30) 0.7 MG/DL (0.55-1.30) 0.8 MG/DL (0.55-1.30) Estimat Glomerular Filtration Rate > 60 mL/min (>60) > 60 mL/min (>60) > 60 mL/min (>60) Glucose Level 141 MG/DL (74-106) 83 MG/DL (74-106) 156 MG/DL (74-106) Calcium Level 9.5 MG/DL (8.5-10.1) 9.6 MG/DL (8.5-10.1) 8.9 MG/DL (8.5-10.1) Magnesium Level 2.6 MG/DL (1.8-2.4) D-Dimer 2.85 mg/L FEU (0.00-0.49) Height (Feet): 5 Height (Inches): 3.00 Weight (Pounds): 152 Objective Physical Exam Physical Exam Narrative General: NAD, A&O x 1, awake, alert, noncommunicative HEENT: NCAT, EOMi, dry mucous membranes CV: RRR, no murmurs, rubs, or gallops Pulm: CTAB, No wheezes, rhonchi, or rales, no accessory muscle usage or conversational dyspnea GI: Soft, nontender, nondistended, bowel sounds present, +PEG c/d/i Neuro: Limited due to patient communication/participation Ext: No lower extremity edema bilaterally Skin: no rashes lesions or ulcers Timothy Wong MD Jun 09, 2019 11:14
--- NOTE | 2019-06-09 11:34 | Pulmonology Progress Note ---
Assessment/Plan Assessment/Plan IMPRESSION: 1. Rectal bleeding. 2. COVID 19 positive 3. CVA. 4. group home resident. DISCUSSION: COVID 19 positive I will follow as stone finisher. Abx per ID CXR clear Continue oxygen prn and pulmonary hygiene. Subjective Interval Events: None new Constitutional: Reports: no symptoms HEENT: Repors: no symptoms Respiratory: Reports: no symptoms Cardiovascular: Reports: no symptoms Gastrointestinal/Abdominal: Reports: no symptoms Allergies: Coded Allergies: IODINE (Verified Allergy, Unknown, 11/10/17) Objective Last 24 Hour Vital Signs Date Time Temp Pulse Resp B/P (MAP) Pulse Ox O2 Delivery O2 Flow Rate FiO2 06/09/19 09:00 Room Air 06/09/19 08:50 69 160/75 06/09/19 08:00 89 06/09/19 08:00 97.8 69 20 147/72 (97) 97 06/09/19 04:00 89 06/09/19 04:00 98.6 95 19 129/72 (91) 97 06/09/19 00:00 98 06/09/19 00:00 98.8 102 18 130/71 (90) 96 06/08/19 20:00 Room Air 06/08/19 20:00 98.1 96 19 132/75 (94) 95 06/08/19 20:00 119 06/08/19 16:00 96.6 80 19 137/80 (99) 96 06/08/19 16:00 115 06/08/19 16:00 Room Air 06/08/19 12:00 91 06/08/19 12:00 Room Air 06/08/19 11:54 98.0 78 20 121/71 (88) 98 Intake and Output 06/08/19 06/09/19 19:00 07:00 Intake Total 920 ml 980 ml Balance 920 ml 980 ml Intake Free Water 200 ml 320 ml Tube Feeding 720 ml 660 ml General Appearance: no acute distress Respiratory/Chest: chest wall non-tender Cardiovascular: normal peripheral pulses Abdomen: normal bowel sounds Laboratory Tests 06/09/19 04:00: White Blood Count 7.6, Red Blood Count 3.60L, Hemoglobin 10.6L, Hematocrit 31.5L , Mean Corpuscular Volume 88, Mean Corpuscular Hemoglobin 29.4, Mean Corpuscular Hemoglobin Concent 33.6, Red Cell Distribution Width 14.6, Platelet Count 283, Mean Platelet Volume 6.7, Neutrophils (%) (Auto) 70.2, Lymphocytes (% ) (Auto) 16.2L, Monocytes (%) (Auto) 12.3H, Eosinophils (%) (Auto) 0.4, Basophils (%) (Auto) 1.0, D-Dimer 2.85H, Sodium Level 146H, Potassium Level 4.4 , Chloride Level 108H, Carbon Dioxide Level 28, Anion Gap 10, Blood Urea Nitrogen 16, Creatinine 0.8, Estimat Glomerular Filtration Rate > 60, Glucose Level 156H, Calcium Level 8.9 Current Medications Medications (Trade) Dose Ordered Sig/Claritza Route PRN Reason Start Time Stop Time Status Last Admin Dose Admin Acetaminophen (Tylenol) 650 mg Q4H PRN GT Mild Pain (Pain Scale 1-3) 06/08/19 13:04 07/08/19 13:03 Acetaminophen (Tylenol) 650 mg Q4H PRN GT T>100.4 06/08/19 13:04 07/08/19 13:03 Amlodipine Besylate (Norvasc) 10 mg DAILY GT 06/09/19 09:00 06/30/19 08:59 06/09/19 08:50 Apixaban (Eliquis) 2.5 mg BID ORAL 06/08/19 18:00 09/05/19 08:59 06/09/19 08:50 Dextrose (Dextrose 50%) 25 ml Q30M PRN IV Hypoglycemia 06/08/19 13:30 08/28/19 13:29 Dextrose (Dextrose 50%) 50 ml Q30M PRN IV Hypoglycemia 06/08/19 13:30 08/28/19 13:29 Escitalopram Oxalate (Lexapro) 10 mg DAILY GT 06/09/19 09:00 06/30/19 08:59 06/09/19 08:51 Lisinopril (ZestriL) 10 mg DAILY ORAL 06/10/19 09:00 07/10/19 08:59 Magnesium Hydroxide (Mom) 30 ml DAILYPRN PRN GT Constipation 06/08/19 13:15 07/08/19 13:03 Pantoprazole (Protonix) 40 mg DAILY IVP 06/09/19 09:00 06/30/19 10:59 06/09/19 09:17 Pravastatin Sodium (Pravachol) 80 mg BEDTIME GT 06/08/19 21:00 06/29/19 20:59 06/08/19 20:27 Risperidone (RisperDAL) 1 mg BID GT 06/08/19 18:00 07/14/19 17:59 06/09/19 08:50 Valproic Acid (Depakene) 250 mg Q12HR GT 06/08/19 21:00 06/29/19 20:59 06/09/19 08:51 Horace Landaverde MD Jun 09, 2019 11:34
[2019-06-09 12:00] VITALS: BP 157/64
--- NOTE | 2019-06-09 12:31 | General Progress Note ---
Assessment/Plan Status: stable Assessment/Plan: 74-year-old female from [facility] w/PMH CVA, dysphasia s/p PEG, dementia, epilepsy, ?DMT2 who presents with bright red blood per rectum, GIB. Patient came facility with multiple COVID positive patients, pt is COVID positive. #Acute blood loss anemia - stable #Acute GIB -continue inpatient level of care -cont. to monitor hgb -Colonoscopy 06/01 without active bleed -Surgery following - no sx at this time -Cardio following -GI following #COVID exposure, second PCR positive #Fever - resolved #elevated D-Dimer #Staph bacteremia - suspect contaminant -BCx staph bacteremia, repeat negative, likely contaminant per ID -OK to start OAC per GI -d-dimer elevated on admission, down trending -d/w Pulm, no need for OAC -will d/c eliquis, start DVT ppx -echo ordered, pending, not done as pt COVID positive, pending negative tests -ID: s/p hydroxychloroquine, cont. to monitor off abx -recheck COVID pending -plan to d/c back to CVP once COVID negative x2 #h/o DMT2 -per chart review pt w/h/o DM -no medications seen in MAR from DC -Hgb A1C 5.9, not in diabetic range #HTN #HLD -restart ASA -home coreg held 2/2 bradycardia -amlodipine 10 mg -lisinopril added -cardio, Dr. Gottlieb. following, recs appreciated #H/o Epilepsy #Seizures #Dementia -no seizure activity reported by DC -cont. valproic acid -cont. home risperdol -Neurology consulted #Dysphagia s/p PEG -TF per nutrition #Hyperkalemia - resolved #Hypokalemia - resolved -cont. to monitor, replace PRN -s/p Kayexalate DVT PPx: lovenox Time spent on encounter: 31 mins, 15 mins spent on coordination of care w/RN. Additional 30 mins spent discussing w/CM dispo planning and Pulm, Dr. Landaverde regarding elevated d-dimer/anticoagulation. Time of note doesn't reflect time of encounter. Subjective Allergies: Coded Allergies: IODINE (Verified Allergy, Unknown, 11/10/17) Subjective F/u for acute blood loss anemia, Second COVID-19 PCR positive, s/p abx, pending retest COVID. No issues overnight, pt appears comfortable, aphasic, at b/l mentation. Objective Last 24 Hour Vital Signs Date Time Temp Pulse Resp B/P (MAP) Pulse Ox O2 Delivery O2 Flow Rate FiO2 06/09/19 09:00 Room Air 06/09/19 08:50 69 160/75 06/09/19 08:00 89 06/09/19 08:00 97.8 69 20 147/72 (97) 97 06/09/19 04:00 89 06/09/19 04:00 98.6 95 19 129/72 (91) 97 06/09/19 00:00 98 06/09/19 00:00 98.8 102 18 130/71 (90) 96 06/08/19 20:00 Room Air 06/08/19 20:00 98.1 96 19 132/75 (94) 95 06/08/19 20:00 119 06/08/19 16:00 96.6 80 19 137/80 (99) 96 06/08/19 16:00 115 06/08/19 16:00 Room Air Intake and Output 06/08/19 06/09/19 19:00 07:00 Intake Total 920 ml 980 ml Balance 920 ml 980 ml Intake Free Water 200 ml 320 ml Tube Feeding 720 ml 660 ml Laboratory Tests 06/09/19 04:00: White Blood Count 7.6, Red Blood Count 3.60L, Hemoglobin 10.6L, Hematocrit 31.5L , Mean Corpuscular Volume 88, Mean Corpuscular Hemoglobin 29.4, Mean Corpuscular Hemoglobin Concent 33.6, Red Cell Distribution Width 14.6, Platelet Count 283, Mean Platelet Volume 6.7, Neutrophils (%) (Auto) 70.2, Lymphocytes (% ) (Auto) 16.2L, Monocytes (%) (Auto) 12.3H, Eosinophils (%) (Auto) 0.4, Basophils (%) (Auto) 1.0, D-Dimer 2.85H, Sodium Level 146H, Potassium Level 4.4 , Chloride Level 108H, Carbon Dioxide Level 28, Anion Gap 10, Blood Urea Nitrogen 16, Creatinine 0.8, Estimat Glomerular Filtration Rate > 60, Glucose Level 156H, Calcium Level 8.9 Height (Feet): 5 Height (Inches): 3.00 Weight (Pounds): 152 Objective General Appearance: NAD, awake, non-verbal, appears comfortable HEENT: NCAT, dry MM Cardiovascular: normal rate, regular rhythm Respiratory/Chest: lungs clear, normal breath sounds, no accessory muscle usage Abdomen: non tender, soft, +PEG c/d/i Ext: no edema Tori Hill M.D. Jun 09, 2019 12:31
--- NOTE | 2019-06-09 13:50 | Surgery Progress Note ---
Surgery Progress Note Subjective Additional Comments labs improved no n/v/f/c comfortable Objective Last 24 Hour Vital Signs Date Time Temp Pulse Resp B/P (MAP) Pulse Ox O2 Delivery O2 Flow Rate FiO2 06/09/19 09:00 Room Air 06/09/19 08:50 69 160/75 06/09/19 08:00 89 06/09/19 08:00 97.8 69 20 147/72 (97) 97 06/09/19 04:00 89 06/09/19 04:00 98.6 95 19 129/72 (91) 97 06/09/19 00:00 98 06/09/19 00:00 98.8 102 18 130/71 (90) 96 06/08/19 20:00 Room Air 06/08/19 20:00 98.1 96 19 132/75 (94) 95 06/08/19 20:00 119 06/08/19 16:00 96.6 80 19 137/80 (99) 96 06/08/19 16:00 115 06/08/19 16:00 Room Air I&O Intake and Output 06/08/19 06/09/19 19:00 07:00 Intake Total 920 ml 980 ml Balance 920 ml 980 ml Intake Free Water 200 ml 320 ml Tube Feeding 720 ml 660 ml Dressing: saturated Wound: clean Cardiovascular: RSR Respiratory: decreased breath sounds Abdomen: soft, present bowel sounds Extremities: edema, no edema, no cyanosis Laboratory Tests Test 06/09/19 04:00 White Blood Count 7.6 K/UL (4.8-10.8) Red Blood Count 3.60 M/UL (4.20-5.40) L Hemoglobin 10.6 G/DL (12.0-16.0) L Hematocrit 31.5 % (37.0-47.0) L Mean Corpuscular Volume 88 FL (80-99) Mean Corpuscular Hemoglobin 29.4 PG (27.0-31.0) Mean Corpuscular Hemoglobin Concent 33.6 G/DL (32.0-36.0) Red Cell Distribution Width 14.6 % (11.6-14.8) Platelet Count 283 K/UL (150-450) Mean Platelet Volume 6.7 FL (6.5-10.1) Neutrophils (%) (Auto) 70.2 % (45.0-75.0) Lymphocytes (%) (Auto) 16.2 % (20.0-45.0) L Monocytes (%) (Auto) 12.3 % (1.0-10.0) H Eosinophils (%) (Auto) 0.4 % (0.0-3.0) Basophils (%) (Auto) 1.0 % (0.0-2.0) D-Dimer 2.85 mg/L FEU (0.00-0.49) H Sodium Level 146 MMOL/L (136-145) H Potassium Level 4.4 MMOL/L (3.5-5.1) Chloride Level 108 MMOL/L (98-107) H Carbon Dioxide Level 28 MMOL/L (21-32) Anion Gap 10 mmol/L (5-15) Blood Urea Nitrogen 16 mg/dL (7-18) Creatinine 0.8 MG/DL (0.55-1.30) Estimat Glomerular Filtration Rate > 60 mL/min (>60) Glucose Level 156 MG/DL (74-106) H Calcium Level 8.9 MG/DL (8.5-10.1) Plan Problems: (1) Episode of generalized weakness (2) Encephalopathy (3) Constipation (4) Hypercalcemia (5) Dysphagia (6) Altered level of consciousness (7) Toxic encephalopathy (8) Thrombocytopenia (9) GIB (gastrointestinal bleeding) Assessment & Plan: Upper GI lavage with g tube no blood likely lower gi bleed diverticuli? appreciate GI input s/p scope no acute findings okay for diet trend h/h abd exam benign no acute surgical intervention planned will follow with recs thank you resp support COVID + no gi bleed actively d dimer up elaquis (10) Lower GI bleed Assessment & Plan: Findings: There is a gastrostomy tube in place. The bowel gas pattern is unremarkable. No masses or unusual calcifications. There are degenerative changes of the lumbar spine Impression: No acute process (11) Epilepsy (12) Acute febrile illness (13) CVA (cerebral vascular accident) (14) Suspected 2019 novel coronavirus infection (15) Diabetes mellitus (16) HTN (hypertension) Tomi Ordoñez Jun 09, 2019 13:49
[2019-06-09 16:00] VITALS: BP 148/81
[2019-06-09 20:00] VITALS: BP 111/51
--- NOTE | 2019-06-09 22:34 | Neurology Progress Note ---
Interim History Interim History ROS Limited/Unobtainable: No Interim History no seizures Objective Physical Exam Last Vital Signs Date Time Temp Pulse Resp B/P (MAP) Pulse Ox O2 Delivery O2 Flow Rate FiO2 06/09/19 20:00 99.7 91 24 111/51 (71) 94 06/09/19 09:00 Room Air 06/02/19 11:30 4 Laboratory Tests Test 06/09/19 04:00 White Blood Count 7.6 K/UL (4.8-10.8) Red Blood Count 3.60 M/UL (4.20-5.40) L Hemoglobin 10.6 G/DL (12.0-16.0) L Hematocrit 31.5 % (37.0-47.0) L Mean Corpuscular Volume 88 FL (80-99) Mean Corpuscular Hemoglobin 29.4 PG (27.0-31.0) Mean Corpuscular Hemoglobin Concent 33.6 G/DL (32.0-36.0) Red Cell Distribution Width 14.6 % (11.6-14.8) Platelet Count 283 K/UL (150-450) Mean Platelet Volume 6.7 FL (6.5-10.1) Neutrophils (%) (Auto) 70.2 % (45.0-75.0) Lymphocytes (%) (Auto) 16.2 % (20.0-45.0) L Monocytes (%) (Auto) 12.3 % (1.0-10.0) H Eosinophils (%) (Auto) 0.4 % (0.0-3.0) Basophils (%) (Auto) 1.0 % (0.0-2.0) D-Dimer 2.85 mg/L FEU (0.00-0.49) H Sodium Level 146 MMOL/L (136-145) H Potassium Level 4.4 MMOL/L (3.5-5.1) Chloride Level 108 MMOL/L (98-107) H Carbon Dioxide Level 28 MMOL/L (21-32) Anion Gap 10 mmol/L (5-15) Blood Urea Nitrogen 16 mg/dL (7-18) Creatinine 0.8 MG/DL (0.55-1.30) Estimat Glomerular Filtration Rate > 60 mL/min (>60) Glucose Level 156 MG/DL (74-106) H Calcium Level 8.9 MG/DL (8.5-10.1) Neurologic Exam Objective lethargic, withdraws a to pain contracture in all 4. non verbal cc 36 min Impression/Recommendations Problems: (1) Episode of generalized weakness (2) Encephalopathy (3) Constipation (4) Hypercalcemia (5) Dysphagia (6) Altered level of consciousness (7) Toxic encephalopathy (8) Thrombocytopenia (9) GIB (gastrointestinal bleeding) (10) Lower GI bleed (11) Epilepsy (12) Acute febrile illness (13) CVA (cerebral vascular accident) (14) Suspected 2019 novel coronavirus infection (15) Diabetes mellitus (16) HTN (hypertension) Status: stable Diagnostic Impression ICU level of care MAp > 65 neuro checks q2h ATB per primary cont depakote 500 mg bid rule out covid19 del precautions no need for LP holding antiplatelets Larry Juarez MD Jun 09, 2019 22:34
[2019-06-10] VITALS: BP 110/57
[2019-06-10 04:00] VITALS: BP 127/65
[2019-06-10 06:50] LABS: BASOPHILS % (AUTO) 0.7 % (0.0-2.0); EOSINOPHILS % (AUTO) 1.1 % (0.0-3.0); HEMATOCRIT 29.8 % (37.0-47.0); LYMPHOCYTES % (AUTO) 18.7 % (20.0-45.0); MEAN CORPUSCULAR VOLUME 88 FL (80-99); NEUTROPHILS % (AUTO) 66.5 % (45.0-75.0); PLATELET COUNT 299 K/UL (150-450); RED BLOOD COUNT 3.39 M/UL (4.20-5.40); RED CELL DISTRIBUTION WIDTH 14.6 % (11.6-14.8); WHITE BLOOD COUNT 9.6 K/UL (4.8-10.8)
--- NOTE | 2019-06-10 07:05 | General Progress Note ---
Assessment/Plan Problem List: (1) Suspected 2019 novel coronavirus infection ICD Codes: R68.89 - Other general symptoms and signs SNOMED: 631828917 (2) Lower GI bleed ICD Codes: K92.2 - Gastrointestinal hemorrhage, unspecified SNOMED: 28132513 (3) Thrombocytopenia ICD Codes: D69.6 - Thrombocytopenia, unspecified SNOMED: 752695910 (4) Diabetes mellitus ICD Codes: E11.9 - Type 2 diabetes mellitus without complications SNOMED: 76587237 (5) HTN (hypertension) ICD Codes: I10 - Essential (primary) hypertension SNOMED: 49537109 Status: stable Assessment/Plan: s/p colonoscopy last week now COVED +!! on Plaquenil per ID labs for am on Eliquis now will fu Subjective ROS Limited/Unobtainable: No Allergies: Coded Allergies: IODINE (Verified Allergy, Unknown, 11/10/17) Objective Last 24 Hour Vital Signs Date Time Temp Pulse Resp B/P (MAP) Pulse Ox O2 Delivery O2 Flow Rate FiO2 06/10/19 04:00 99.2 82 20 127/65 (85) 95 06/10/19 04:00 88 06/10/19 00:00 88 06/10/19 00:00 98.4 105 24 110/57 (74) 94 06/09/19 21:00 Room Air 06/09/19 20:00 90 06/09/19 20:00 99.7 91 24 111/51 (71) 94 06/09/19 16:00 97.7 80 19 148/81 (103) 98 06/09/19 16:00 82 06/09/19 12:00 96 06/09/19 12:00 98.1 71 18 157/64 (95) 96 06/09/19 09:00 Room Air 06/09/19 08:50 69 160/75 06/09/19 08:00 89 06/09/19 08:00 97.8 69 20 147/72 (97) 97 Intake and Output 06/09/19 06/10/19 19:00 07:00 Intake Total 920 ml Balance 920 ml Intake Free Water 200 ml Tube Feeding 720 ml # Voids 2 Laboratory Tests 06/10/19 04:00: White Blood Count [Pending], Red Blood Count [Pending], Hemoglobin [Pending], Hematocrit [Pending], Mean Corpuscular Volume [Pending], Mean Corpuscular Hemoglobin [Pending], Mean Corpuscular Hemoglobin Concent [Pending], Red Cell Distribution Width [Pending], Platelet Count [Pending], Mean Platelet Volume [ Pending], Neutrophils (%) (Auto) [Pending], Lymphocytes (%) (Auto) [Pending], Monocytes (%) (Auto) [Pending], Eosinophils (%) (Auto) [Pending], Basophils (%) (Auto) [Pending], Sodium Level [Pending], Potassium Level [Pending], Chloride Level [Pending], Carbon Dioxide Level [Pending], Blood Urea Nitrogen [Pending], Creatinine [Pending], Estimat Glomerular Filtration Rate [Pending], Glucose Level [Pending], Calcium Level [Pending] Height (Feet): 5 Height (Inches): 3.00 Weight (Pounds): 152 General Appearance: no apparent distress EENT: normal ENT inspection Neck: supple Cardiovascular: normal rate Respiratory/Chest: decreased breath sounds Abdomen: normal bowel sounds, non tender, soft Extremities: non-tender Thang Doan MD Jun 10, 2019 07:05
[2019-06-10 07:16] LABS: ANION GAP 8 mmol/L (5-15); BLOOD UREA NITROGEN 21 mg/dL (7-18); CARBON DIOXIDE 28 MMOL/L (21-32); CHLORIDE 107 MMOL/L (98-107); CREATININE 0.7 MG/DL (0.55-1.30); POTASSIUM 4.1 MMOL/L (3.5-5.1); SODIUM 142 MMOL/L (136-145)
[2019-06-10 08:00] VITALS: BP 136/68
--- NOTE | 2019-06-10 08:40 | General Progress Note ---
Assessment/Plan Status: stable Assessment/Plan: 74-year-old female from [facility] w/PMH CVA, dysphasia s/p PEG, dementia, epilepsy, ?DMT2 who presents with bright red blood per rectum, GIB. Patient came facility with multiple COVID positive patients, pt is COVID positive. #Acute blood loss anemia - stable #Acute GIB - stable -continue inpatient level of care -cont. to monitor hgb -Colonoscopy 06/01 without active bleed -Surgery following - no sx at this time -GI following - no further intervention at this time. #COVID exposure, second PCR positive #Fever - resolved #elevated D-Dimer #Staph bacteremia - suspect contaminant -BCx staph bacteremia, repeat negative, likely contaminant per ID -OK to start OAC per GI -d-dimer elevated on admission, down trending -d/w Pulm, no need for OAC -echo ordered, pending, not done as pt COVID positive, pending negative tests -ID: s/p hydroxychloroquine, cont. to monitor off abx -repeat COVID positive -will repeat test -pt will need 2 negative tests prior to d/c back to CVP #h/o DMT2 -per chart review pt w/h/o DM -no medications seen in MAR from [facility] -Hgb A1C 5.9, not in diabetic range #HTN #HLD -ASA -home coreg held 2/2 bradycardia -amlodipine 10 mg -lisinopril added -cardio, Dr. Gottlieb. following, recs appreciated #H/o Epilepsy #Seizures #Dementia -no seizure activity reported by [facility] -cont. valproic acid -cont. home risperdol -Neurology consulted #Dysphagia s/p PEG -TF per nutrition #Hyperkalemia - resolved #Hypokalemia - resolved -cont. to monitor, replace PRN -s/p Kayexalate DVT PPx: lovenox Time spent on encounter: 29 mins, 16 mins spent on coordination of care w/RN, D/ w ID Dr. Dunham regarding COVID testing. Time of note doesn't reflect time of encounter. Subjective Allergies: Coded Allergies: IODINE (Verified Allergy, Unknown, 11/10/17) Subjective F/u for acute blood loss anemia, Second COVID-19 PCR positive, s/p abx, pending retest COVID. COVID retest came back +. Pt aphasic, appears comfortable. No issues per nurse. Objective Last 24 Hour Vital Signs Date Time Temp Pulse Resp B/P (MAP) Pulse Ox O2 Delivery O2 Flow Rate FiO2 06/10/19 04:00 99.2 82 20 127/65 (85) 95 06/10/19 04:00 88 06/10/19 00:00 88 06/10/19 00:00 98.4 105 24 110/57 (74) 94 06/09/19 21:00 Room Air 06/09/19 20:00 90 06/09/19 20:00 99.7 91 24 111/51 (71) 94 06/09/19 16:00 97.7 80 19 148/81 (103) 98 06/09/19 16:00 82 06/09/19 12:00 96 06/09/19 12:00 98.1 71 18 157/64 (95) 96 06/09/19 09:00 Room Air 06/09/19 08:50 69 160/75 Intake and Output 06/09/19 06/10/19 19:00 07:00 Intake Total 920 ml Balance 920 ml Intake Free Water 200 ml Tube Feeding 720 ml # Voids 2 Laboratory Tests 06/10/19 04:00: White Blood Count 9.6, Red Blood Count 3.39L, Hemoglobin 10.0L, Hematocrit 29.8L , Mean Corpuscular Volume 88, Mean Corpuscular Hemoglobin 29.5, Mean Corpuscular Hemoglobin Concent 33.6, Red Cell Distribution Width 14.6, Platelet Count 299, Mean Platelet Volume 6.5, Neutrophils (%) (Auto) 66.5, Lymphocytes (% ) (Auto) 18.7L, Monocytes (%) (Auto) 13.0H, Eosinophils (%) (Auto) 1.1, Basophils (%) (Auto) 0.7, Sodium Level 142, Potassium Level 4.1, Chloride Level 107, Carbon Dioxide Level 28, Anion Gap 8, Blood Urea Nitrogen 21H, Creatinine 0.7, Estimat Glomerular Filtration Rate > 60, Glucose Level 125H, Calcium Level 9.0 Height (Feet): 5 Height (Inches): 3.00 Weight (Pounds): 151 Objective General Appearance: NAD, sleeping comfortably in bed, non-verbal HEENT: NCAT, MMM Cardiovascular: normal rate, regular rhythm Respiratory/Chest: lungs clear, normal breath sounds, no accessory muscle usage Abdomen: non tender, soft, +PEG c/d/i Ext: no edema Tori Hill M.D. Jun 10, 2019 08:40
[2019-06-10] MEDS: Valproic Acid 250mg/5ml Liquid GT SCH ×2 (09:54→21:50)
[2019-06-10] MEDS: Pantoprazole Inj IVP SCH (09:54)
[2019-06-10] MEDS: Enoxaparin 40mg Inj SUBQ SCH (09:55)
[2019-06-10] MEDS: Aspirin EC 81mg tab ORAL SCH (09:55)
[2019-06-10] MEDS: Lisinopril 10mg tab ORAL SCH (09:56)
--- NOTE | 2019-06-10 11:02 | Pulmonology Progress Note ---
Assessment/Plan Assessment/Plan IMPRESSION: 1. Rectal bleeding. 2. COVID 19 positive 3. CVA. 4. detention resident. DISCUSSION: COVID 19 positive I will follow as market president. Abx per ID CXR clear Continue oxygen prn and pulmonary hygiene. Currently on RA Subjective Interval Events: None new Constitutional: Reports: no symptoms HEENT: Repors: no symptoms Respiratory: Reports: no symptoms Cardiovascular: Reports: no symptoms Gastrointestinal/Abdominal: Reports: no symptoms Allergies: Coded Allergies: IODINE (Verified Allergy, Unknown, 11/10/17) Objective Last 24 Hour Vital Signs Date Time Temp Pulse Resp B/P (MAP) Pulse Ox O2 Delivery O2 Flow Rate FiO2 06/10/19 09:56 136/68 06/10/19 09:55 96 136/68 06/10/19 09:00 Room Air 06/10/19 08:00 98.9 96 22 136/68 (90) 94 06/10/19 08:00 88 06/10/19 04:00 99.2 82 20 127/65 (85) 95 06/10/19 04:00 88 06/10/19 00:00 88 06/10/19 00:00 98.4 105 24 110/57 (74) 94 06/09/19 21:00 Room Air 06/09/19 20:00 90 06/09/19 20:00 99.7 91 24 111/51 (71) 94 06/09/19 16:00 97.7 80 19 148/81 (103) 98 06/09/19 16:00 82 06/09/19 12:00 96 06/09/19 12:00 98.1 71 18 157/64 (95) 96 Intake and Output 06/09/19 06/10/19 19:00 07:00 Intake Total 920 ml Balance 920 ml Intake Free Water 200 ml Tube Feeding 720 ml # Voids 2 General Appearance: no acute distress HEENT: normocephalic Respiratory/Chest: chest wall non-tender Cardiovascular: normal peripheral pulses Abdomen: normal bowel sounds Microbiology Date/Time Source Procedure Growth Status 06/08/19 12:53 Nasopharynx Coronavirus COVID-19 PCR (HOME) - Final Complete Laboratory Tests 06/10/19 04:00: White Blood Count 9.6, Red Blood Count 3.39L, Hemoglobin 10.0L, Hematocrit 29.8L , Mean Corpuscular Volume 88, Mean Corpuscular Hemoglobin 29.5, Mean Corpuscular Hemoglobin Concent 33.6, Red Cell Distribution Width 14.6, Platelet Count 299, Mean Platelet Volume 6.5, Neutrophils (%) (Auto) 66.5, Lymphocytes (% ) (Auto) 18.7L, Monocytes (%) (Auto) 13.0H, Eosinophils (%) (Auto) 1.1, Basophils (%) (Auto) 0.7, Sodium Level 142, Potassium Level 4.1, Chloride Level 107, Carbon Dioxide Level 28, Anion Gap 8, Blood Urea Nitrogen 21H, Creatinine 0.7, Estimat Glomerular Filtration Rate > 60, Glucose Level 125H, Calcium Level 9.0 Current Medications Medications (Trade) Dose Ordered Sig/Claritza Route PRN Reason Start Time Stop Time Status Last Admin Dose Admin Acetaminophen (Tylenol) 650 mg Q4H PRN GT Mild Pain (Pain Scale 1-3) 06/08/19 13:04 07/08/19 13:03 Acetaminophen (Tylenol) 650 mg Q4H PRN GT T>100.4 06/08/19 13:04 07/08/19 13:03 Amlodipine Besylate (Norvasc) 10 mg DAILY GT 06/09/19 09:00 06/30/19 08:59 06/10/19 09:55 Aspirin (Ecotrin) 81 mg DAILY ORAL 06/10/19 09:00 07/25/19 08:59 06/10/19 09:55 Dextrose (Dextrose 50%) 25 ml Q30M PRN IV Hypoglycemia 06/08/19 13:30 08/28/19 13:29 Dextrose (Dextrose 50%) 50 ml Q30M PRN IV Hypoglycemia 06/08/19 13:30 08/28/19 13:29 Enoxaparin Sodium (Lovenox) 40 mg DAILY SUBQ 06/10/19 09:00 09/08/19 08:59 06/10/19 09:55 Escitalopram Oxalate (Lexapro) 10 mg DAILY GT 06/09/19 09:00 06/30/19 08:59 06/10/19 09:55 Lisinopril (ZestriL) 10 mg DAILY ORAL 06/10/19 09:00 07/10/19 08:59 06/10/19 09:56 Magnesium Hydroxide (Mom) 30 ml DAILYPRN PRN GT Constipation 06/08/19 13:15 07/08/19 13:03 Pantoprazole (Protonix) 40 mg DAILY IVP 06/09/19 09:00 06/30/19 10:59 06/10/19 09:54 Pravastatin Sodium (Pravachol) 80 mg BEDTIME GT 06/08/19 21:00 06/29/19 20:59 06/09/19 21:03 Risperidone (RisperDAL) 1 mg BID GT 06/08/19 18:00 07/14/19 17:59 06/10/19 09:55 Valproic Acid (Depakene) 250 mg Q12HR GT 06/08/19 21:00 06/29/19 20:59 06/10/19 09:54 Horace Landaverde MD Jun 10, 2019 11:02
--- NOTE | 2019-06-10 11:22 | Infectious Diseases Prog Note ---
"Assessment/Plan Assessment/Plan antibiotics : none A 1. COVID 19 pneumonia s/p rx with hydroxychloroquine test + 4.8.20, 4.15.20 2. fever improving 3. GI bleeding 4. diabetes mellitus 5. epilepsy 6. dementia 7. CVA 8. + blood cultures with coag neg staph | diphtheroids likely contaminated P 1. observe off antibiotics 2. will follow up cultures 3. continue isolation Subjective ROS Limited/Unobtainable: Yes Allergies: Coded Allergies: IODINE (Verified Allergy, Unknown, 11/10/17) Objective Vital Signs Last 24 Hour Vital Signs Date Time Temp Pulse Resp B/P (MAP) Pulse Ox O2 Delivery O2 Flow Rate FiO2 06/10/19 09:56 136/68 06/10/19 09:55 96 136/68 06/10/19 09:00 Room Air 06/10/19 08:00 98.9 96 22 136/68 (90) 94 06/10/19 08:00 88 06/10/19 04:00 99.2 82 20 127/65 (85) 95 06/10/19 04:00 88 06/10/19 00:00 88 06/10/19 00:00 98.4 105 24 110/57 (74) 94 06/09/19 21:00 Room Air 06/09/19 20:00 90 06/09/19 20:00 99.7 91 24 111/51 (71) 94 06/09/19 16:00 97.7 80 19 148/81 (103) 98 06/09/19 16:00 82 06/09/19 12:00 96 06/09/19 12:00 98.1 71 18 157/64 (95) 96 Height (Feet): 5 Height (Inches): 3.00 Weight (Pounds): 151 Respiratory/Chest: lungs clear Cardiovascular: normal rate, regular rhythm, no gallop/murmur Abdomen: soft, non tender, other - GT Extremities: no edema Microbiology Date/Time Source Procedure Growth Status 06/08/19 12:53 Nasopharynx Coronavirus COVID-19 PCR (HOME) - Final Complete Laboratory Tests Test 06/10/19 04:00 White Blood Count 9.6 K/UL (4.8-10.8) Red Blood Count 3.39 M/UL (4.20-5.40) L Hemoglobin 10.0 G/DL (12.0-16.0) L Hematocrit 29.8 % (37.0-47.0) L Mean Corpuscular Volume 88 FL (80-99) Mean Corpuscular Hemoglobin 29.5 PG (27.0-31.0) Mean Corpuscular Hemoglobin Concent 33.6 G/DL (32.0-36.0) Red Cell Distribution Width 14.6 % (11.6-14.8) Platelet Count 299 K/UL (150-450) Mean Platelet Volume 6.5 FL (6.5-10.1) Neutrophils (%) (Auto) 66.5 % (45.0-75.0) Lymphocytes (%) (Auto) 18.7 % (20.0-45.0) L Monocytes (%) (Auto) 13.0 % (1.0-10.0) H Eosinophils (%) (Auto) 1.1 % (0.0-3.0) Basophils (%) (Auto) 0.7 % (0.0-2.0) Sodium Level 142 MMOL/L (136-145) Potassium Level 4.1 MMOL/L (3.5-5.1) Chloride Level 107 MMOL/L (98-107) Carbon Dioxide Level 28 MMOL/L (21-32) Anion Gap 8 mmol/L (5-15) Blood Urea Nitrogen 21 mg/dL (7-18) H Creatinine 0.7 MG/DL (0.55-1.30) Estimat Glomerular Filtration Rate > 60 mL/min (>60) Glucose Level 125 MG/DL (74-106) H Calcium Level 9.0 MG/DL (8.5-10.1) Current Medications Medications (Trade) Dose Ordered Sig/Claritza Route PRN Reason Start Time Stop Time Status Last Admin Dose Admin Acetaminophen (Tylenol) 650 mg Q4H PRN GT Mild Pain (Pain Scale 1-3) 06/08/19 13:04 07/08/19 13:03 Acetaminophen (Tylenol) 650 mg Q4H PRN GT T>100.4 06/08/19 13:04 07/08/19 13:03 Amlodipine Besylate (Norvasc) 10 mg DAILY GT 06/09/19 09:00 06/30/19 08:59 06/10/19 09:55 Aspirin (Ecotrin) 81 mg DAILY ORAL 06/10/19 09:00 07/25/19 08:59 06/10/19 09:55 Dextrose (Dextrose 50%) 25 ml Q30M PRN IV Hypoglycemia 06/08/19 13:30 08/28/19 13:29 Dextrose (Dextrose 50%) 50 ml Q30M PRN IV Hypoglycemia 06/08/19 13:30 08/28/19 13:29 Enoxaparin Sodium (Lovenox) 40 mg DAILY SUBQ 06/10/19 09:00 09/08/19 08:59 06/10/19 09:55 Escitalopram Oxalate (Lexapro) 10 mg DAILY GT 06/09/19 09:00 06/30/19 08:59 06/10/19 09:55 Lisinopril (ZestriL) 10 mg DAILY ORAL 06/10/19 09:00 07/10/19 08:59 06/10/19 09:56 Magnesium Hydroxide (Mom) 30 ml DAILYPRN PRN GT Constipation 06/08/19 13:15 07/08/19 13:03 Pantoprazole (Protonix) 40 mg DAILY IVP 06/09/19 09:00 06/30/19 10:59 06/10/19 09:54 Pravastatin Sodium (Pravachol) 80 mg BEDTIME GT 06/08/19 21:00 06/29/19 20:59 06/09/19 21:03 Risperidone (RisperDAL) 1 mg BID GT 06/08/19 18:00 07/14/19 17:59 06/10/19 09:55 Valproic Acid (Depakene) 250 mg Q12HR GT 06/08/19 21:00 06/29/19 20:59 06/10/19 09:54 Radha Dunham MD Jun 10, 2019 11:22"
--- NOTE | 2019-06-10 11:34 | Cardiac Electrophysiology PN ---
Assessment/Plan Assessment/Plan 1. Bradycardia. Resolved off Coreg. Echo still pending as COVID still positive 2. Hypertension, on amlodipine 10 daily and Lisinopril 10 daily 3. Hyperlipidemia, on Pravachol 4. Rectal bleeding. S/P Colonoscopy by Dr. Doan that showed diverticulitis 5. History of CVA. 6. S/P PEG 7. COVID PNA, positive on 06/01/19 completed Plaquenil. QTc 455 DW RN Subjective Subjective In SR in isolation as second COVID was positive. Comfortable in NAD.Re- swabbed for Covid. Bursts of sinus tach 120s. Objective Last 24 Hour Vital Signs Date Time Temp Pulse Resp B/P (MAP) Pulse Ox O2 Delivery O2 Flow Rate FiO2 06/10/19 09:56 136/68 06/10/19 09:55 96 136/68 06/10/19 09:00 Room Air 06/10/19 08:00 98.9 96 22 136/68 (90) 94 06/10/19 08:00 88 06/10/19 04:00 99.2 82 20 127/65 (85) 95 06/10/19 04:00 88 06/10/19 00:00 88 06/10/19 00:00 98.4 105 24 110/57 (74) 94 06/09/19 21:00 Room Air 06/09/19 20:00 90 06/09/19 20:00 99.7 91 24 111/51 (71) 94 06/09/19 16:00 97.7 80 19 148/81 (103) 98 06/09/19 16:00 82 06/09/19 12:00 96 06/09/19 12:00 98.1 71 18 157/64 (95) 96 Intake and Output 06/09/19 06/10/19 19:00 07:00 Intake Total 920 ml Balance 920 ml Intake Free Water 200 ml Tube Feeding 720 ml # Voids 2 Laboratory Tests Test 06/10/19 04:00 White Blood Count 9.6 K/UL (4.8-10.8) Red Blood Count 3.39 M/UL (4.20-5.40) L Hemoglobin 10.0 G/DL (12.0-16.0) L Hematocrit 29.8 % (37.0-47.0) L Mean Corpuscular Volume 88 FL (80-99) Mean Corpuscular Hemoglobin 29.5 PG (27.0-31.0) Mean Corpuscular Hemoglobin Concent 33.6 G/DL (32.0-36.0) Red Cell Distribution Width 14.6 % (11.6-14.8) Platelet Count 299 K/UL (150-450) Mean Platelet Volume 6.5 FL (6.5-10.1) Neutrophils (%) (Auto) 66.5 % (45.0-75.0) Lymphocytes (%) (Auto) 18.7 % (20.0-45.0) L Monocytes (%) (Auto) 13.0 % (1.0-10.0) H Eosinophils (%) (Auto) 1.1 % (0.0-3.0) Basophils (%) (Auto) 0.7 % (0.0-2.0) Sodium Level 142 MMOL/L (136-145) Potassium Level 4.1 MMOL/L (3.5-5.1) Chloride Level 107 MMOL/L (98-107) Carbon Dioxide Level 28 MMOL/L (21-32) Anion Gap 8 mmol/L (5-15) Blood Urea Nitrogen 21 mg/dL (7-18) H Creatinine 0.7 MG/DL (0.55-1.30) Estimat Glomerular Filtration Rate > 60 mL/min (>60) Glucose Level 125 MG/DL (74-106) H Calcium Level 9.0 MG/DL (8.5-10.1) Microbiology Date/Time Source Procedure Growth Status 06/08/19 12:53 Nasopharynx Coronavirus COVID-19 PCR (HOME) - Final Complete Objective HEAD AND NECK: No JVD, LUNGS: Coarse rhonchi. CARDIOVASCULAR: Regular S1 and S2. Bradycardic. ABDOMEN: Soft and status post G-tube. EXTREMITIES: No pitting edema. Telly Gottlieb MD Jun 10, 2019 11:34
[2019-06-10 12:00] VITALS: BP 127/59
[2019-06-10 16:00] VITALS: BP 128/60
--- NOTE | 2019-06-10 17:37 | Hematology/Onc Progress Note ---
Assessment/Plan Assessment/Plan Assessment and Recs: # Pancytopenia with Acute blood loss anemia, currently has been progressing is due to COVID19 --> likely related to underlying infection, covid rule out at this time --> hepatitis and hiv are BOTH NEG --> us of the abdomen is pending, r/o hsm and cirrhosisnone noted and gtube in place noted --> smear of the periphery is pending->reviewed no schistocytes seen --> abx as per id, started --> pressors prn --> 06/01 for colo by Olimpia showed 3 polyps/diverticulitis --> repeat colo in 3 months # Acute GIB, with decrease in h/h --> no evidence of hemolyis is noted --> transfuse as needed, hgb goal >7 --> IVF hgb trend 10.4-->11.5-->10.5-->11 --> Protonix given in ED --> GI consulted, Dr Doan: GT lavage neg, transfuse plts, prep for possible colonoscopy, also per surg # Fever liekly due to covid 19++ --> currently is on iso --> COVID 19++ --> KUB negative --> CXR ?right lung infiltrate --> per pulm --> monitor off abx # DMT2 --> accuchecks qac and qhs --> iss prn # HTN --> sbp goal is less than 140 --> as per cards # HLD --> holding ASA given acute GIB # H/o Epilepsy # Seizures # Dementia # Dysphagia s/p PEG --> on tfs # DVT PPx: SCDs given acute GIB Appreciate consultation and jose Rn Subjective Allergies: Coded Allergies: IODINE (Verified Allergy, Unknown, 11/10/17) Subjective 05/31 is for colo tomorrow, labs reviewed, hgb stable 06/01 as per gi eval, for scope, no night sweats, dw rn 06/02 no major changes, labs reviewed, no bleeding, colo done yesterday, 3 polyps noted 06/05 asleep, no bleeding or chills, labs have been noted, no night swearts, hgb 10.5 06/06 no major changes, no bleeding, labs reviewed, no night sweats 06/07 no events, no bleeding or night sweats, labs noted, now with COVID++ 06/08 labs noted, hgb is stable, dw gi, no bleeding at this time 06/09 on tele, off abx, labs reviewed, on room air Objective Objective Current Medications Medications (Trade) Dose Ordered Sig/Claritza Route PRN Reason Start Time Stop Time Status Last Admin Dose Admin Acetaminophen (Tylenol) 650 mg Q4H PRN GT Mild Pain (Pain Scale 1-3) 06/08/19 13:04 07/08/19 13:03 Acetaminophen (Tylenol) 650 mg Q4H PRN GT T>100.4 06/08/19 13:04 07/08/19 13:03 Amlodipine Besylate (Norvasc) 10 mg DAILY GT 06/09/19 09:00 06/30/19 08:59 06/10/19 09:55 Aspirin (Ecotrin) 81 mg DAILY ORAL 06/10/19 09:00 07/25/19 08:59 06/10/19 09:55 Dextrose (Dextrose 50%) 25 ml Q30M PRN IV Hypoglycemia 06/08/19 13:30 08/28/19 13:29 Dextrose (Dextrose 50%) 50 ml Q30M PRN IV Hypoglycemia 06/08/19 13:30 08/28/19 13:29 Enoxaparin Sodium (Lovenox) 40 mg DAILY SUBQ 06/10/19 09:00 09/08/19 08:59 06/10/19 09:55 Escitalopram Oxalate (Lexapro) 10 mg DAILY GT 06/09/19 09:00 06/30/19 08:59 06/10/19 09:55 Lisinopril (ZestriL) 10 mg DAILY ORAL 06/10/19 09:00 07/10/19 08:59 06/10/19 09:56 Magnesium Hydroxide (Mom) 30 ml DAILYPRN PRN GT Constipation 06/08/19 13:15 07/08/19 13:03 Pantoprazole (Protonix) 40 mg DAILY IVP 06/09/19 09:00 06/30/19 10:59 06/10/19 09:54 Pravastatin Sodium (Pravachol) 80 mg BEDTIME GT 06/08/19 21:00 5/6/20 20:59 06/09/19 21:03 Risperidone (RisperDAL) 1 mg BID GT 06/08/19 18:00 07/14/19 17:59 06/10/19 09:55 Valproic Acid (Depakene) 250 mg Q12HR GT 06/08/19 21:00 06/29/19 20:59 06/10/19 09:54 Last 24 Hour Vital Signs Date Time Temp Pulse Resp B/P (MAP) Pulse Ox O2 Delivery O2 Flow Rate FiO2 06/10/19 16:00 98.9 83 22 128/60 (82) 96 06/10/19 12:00 88 06/10/19 12:00 98.9 89 22 127/59 (81) 94 06/10/19 09:56 136/68 06/10/19 09:55 96 136/68 06/10/19 09:00 Room Air 06/10/19 08:00 98.9 96 22 136/68 (90) 94 06/10/19 08:00 88 06/10/19 04:00 99.2 82 20 127/65 (85) 95 06/10/19 04:00 88 06/10/19 00:00 88 06/10/19 00:00 98.4 105 24 110/57 (74) 94 06/09/19 21:00 Room Air 06/09/19 20:00 90 06/09/19 20:00 99.7 91 24 111/51 (71) 94 06/09/19 16:00 97.7 80 19 148/81 (103) 98 06/09/19 16:00 82 06/09/19 12:00 96 06/09/19 12:00 98.1 71 18 157/64 (95) 96 06/09/19 09:00 Room Air 06/09/19 08:50 69 160/75 06/09/19 08:00 89 06/09/19 08:00 97.8 69 20 147/72 (97) 97 06/09/19 04:00 89 06/09/19 04:00 98.6 95 19 129/72 (91) 97 06/09/19 00:00 98 06/09/19 00:00 98.8 102 18 130/71 (90) 96 06/08/19 20:00 Room Air 06/08/19 20:00 98.1 96 19 132/75 (94) 95 06/08/19 20:00 119 Intake and Output 06/09/19 06/10/19 19:00 07:00 Intake Total 920 ml Balance 920 ml Intake Free Water 200 ml Tube Feeding 720 ml # Voids 2 Labs Test 06/08/19 04:30 06/09/19 04:00 06/10/19 04:00 White Blood Count 9.0 K/UL (4.8-10.8) 7.6 K/UL (4.8-10.8) 9.6 K/UL (4.8-10.8) Red Blood Count 3.42 M/UL (4.20-5.40) 3.60 M/UL (4.20-5.40) 3.39 M/UL (4.20-5.40) Hemoglobin 10.3 G/DL (12.0-16.0) 10.6 G/DL (12.0-16.0) 10.0 G/DL (12.0-16.0) Hematocrit 30.0 % (37.0-47.0) 31.5 % (37.0-47.0) 29.8 % (37.0-47.0) Mean Corpuscular Volume 88 FL (80-99) 88 FL (80-99) 88 FL (80-99) Mean Corpuscular Hemoglobin 30.2 PG (27.0-31.0) 29.4 PG (27.0-31.0) 29.5 PG (27.0-31.0) Mean Corpuscular Hemoglobin Concent 34.4 G/DL (32.0-36.0) 33.6 G/DL (32.0-36.0) 33.6 G/DL (32.0-36.0) Red Cell Distribution Width 14.3 % (11.6-14.8) 14.6 % (11.6-14.8) 14.6 % (11.6-14.8) Platelet Count 269 K/UL (150-450) 283 K/UL (150-450) 299 K/UL (150-450) Mean Platelet Volume 7.1 FL (6.5-10.1) 6.7 FL (6.5-10.1) 6.5 FL (6.5-10.1) Neutrophils (%) (Auto) 58.3 % (45.0-75.0) 70.2 % (45.0-75.0) 66.5 % (45.0-75.0) Lymphocytes (%) (Auto) 24.1 % (20.0-45.0) 16.2 % (20.0-45.0) 18.7 % (20.0-45.0) Monocytes (%) (Auto) 14.8 % (1.0-10.0) 12.3 % (1.0-10.0) 13.0 % (1.0-10.0) Eosinophils (%) (Auto) 2.0 % (0.0-3.0) 0.4 % (0.0-3.0) 1.1 % (0.0-3.0) Basophils (%) (Auto) 0.8 % (0.0-2.0) 1.0 % (0.0-2.0) 0.7 % (0.0-2.0) Sodium Level 146 MMOL/L (136-145) 146 MMOL/L (136-145) 142 MMOL/L (136-145) Potassium Level 5.4 MMOL/L (3.5-5.1) 4.4 MMOL/L (3.5-5.1) 4.1 MMOL/L (3.5-5.1) Chloride Level 109 MMOL/L (98-107) 108 MMOL/L (98-107) 107 MMOL/L (98-107) Carbon Dioxide Level 24 MMOL/L (21-32) 28 MMOL/L (21-32) 28 MMOL/L (21-32) Anion Gap 13 mmol/L (5-15) 10 mmol/L (5-15) 8 mmol/L (5-15) Blood Urea Nitrogen 14 mg/dL (7-18) 16 mg/dL (7-18) 21 mg/dL (7-18) Creatinine 0.7 MG/DL (0.55-1.30) 0.8 MG/DL (0.55-1.30) 0.7 MG/DL (0.55-1.30) Estimat Glomerular Filtration Rate > 60 mL/min (>60) > 60 mL/min (>60) > 60 mL/min (>60) Glucose Level 83 MG/DL (74-106) 156 MG/DL (74-106) 125 MG/DL (74-106) Calcium Level 9.6 MG/DL (8.5-10.1) 8.9 MG/DL (8.5-10.1) 9.0 MG/DL (8.5-10.1) Magnesium Level 2.6 MG/DL (1.8-2.4) D-Dimer 2.85 mg/L FEU (0.00-0.49) Height (Feet): 5 Height (Inches): 3.00 Weight (Pounds): 151 Objective Physical Exam Physical Exam Narrative General: NAD, A&O x 1, awake, alert, noncommunicative HEENT: NCAT, EOMi, dry mucous membranes CV: RRR, no murmurs, rubs, or gallops Pulm: CTAB, No wheezes, rhonchi, or rales, no accessory muscle usage or conversational dyspnea GI: Soft, nontender, nondistended, bowel sounds present, +PEG c/d/i Neuro: Limited due to patient communication/participation Ext: No lower extremity edema bilaterally Skin: no rashes lesions or ulcers Timothy Wong MD Jun 10, 2019 17:37
--- NOTE | 2019-06-10 18:22 | Neurology Progress Note ---
Interim History Interim History ROS Limited/Unobtainable: Yes Interim History no seizures Objective Physical Exam Last Vital Signs Date Time Temp Pulse Resp B/P (MAP) Pulse Ox O2 Delivery O2 Flow Rate FiO2 06/10/19 16:00 98.9 83 22 128/60 (82) 96 06/10/19 09:00 Room Air 06/02/19 11:30 4 Laboratory Tests Test 06/10/19 04:00 White Blood Count 9.6 K/UL (4.8-10.8) Red Blood Count 3.39 M/UL (4.20-5.40) L Hemoglobin 10.0 G/DL (12.0-16.0) L Hematocrit 29.8 % (37.0-47.0) L Mean Corpuscular Volume 88 FL (80-99) Mean Corpuscular Hemoglobin 29.5 PG (27.0-31.0) Mean Corpuscular Hemoglobin Concent 33.6 G/DL (32.0-36.0) Red Cell Distribution Width 14.6 % (11.6-14.8) Platelet Count 299 K/UL (150-450) Mean Platelet Volume 6.5 FL (6.5-10.1) Neutrophils (%) (Auto) 66.5 % (45.0-75.0) Lymphocytes (%) (Auto) 18.7 % (20.0-45.0) L Monocytes (%) (Auto) 13.0 % (1.0-10.0) H Eosinophils (%) (Auto) 1.1 % (0.0-3.0) Basophils (%) (Auto) 0.7 % (0.0-2.0) Sodium Level 142 MMOL/L (136-145) Potassium Level 4.1 MMOL/L (3.5-5.1) Chloride Level 107 MMOL/L (98-107) Carbon Dioxide Level 28 MMOL/L (21-32) Anion Gap 8 mmol/L (5-15) Blood Urea Nitrogen 21 mg/dL (7-18) H Creatinine 0.7 MG/DL (0.55-1.30) Estimat Glomerular Filtration Rate > 60 mL/min (>60) Glucose Level 125 MG/DL (74-106) H Calcium Level 9.0 MG/DL (8.5-10.1) Neurologic Exam Objective lethargic, withdraws a to pain contracture in all 4. non verbal cc 36 min Impression/Recommendations Problems: (1) Episode of generalized weakness (2) Encephalopathy (3) Constipation (4) Hypercalcemia (5) Dysphagia (6) Altered level of consciousness (7) Toxic encephalopathy (8) Thrombocytopenia (9) GIB (gastrointestinal bleeding) (10) Lower GI bleed (11) Epilepsy (12) Acute febrile illness (13) CVA (cerebral vascular accident) (14) Suspected 2019 novel coronavirus infection (15) Diabetes mellitus (16) HTN (hypertension) Status: stable Diagnostic Impression ICU level of care MAp > 65 neuro checks q2h ATB per primary cont depakote 500 mg bid rule out covid19 del precautions no need for LP holding antiplatelets Larry Juarez MD Jun 10, 2019 18:22
[2019-06-10 20:00] VITALS: BP 113/50
--- NOTE | 2019-06-10 20:20 | Surgery Progress Note ---
Surgery Progress Note Subjective Additional Comments more comfortable labs stable po okay comfortable Objective Last 24 Hour Vital Signs Date Time Temp Pulse Resp B/P (MAP) Pulse Ox O2 Delivery O2 Flow Rate FiO2 06/10/19 16:00 98.9 83 22 128/60 (82) 96 06/10/19 12:00 88 06/10/19 12:00 98.9 89 22 127/59 (81) 94 06/10/19 09:56 136/68 06/10/19 09:55 96 136/68 06/10/19 09:00 Room Air 06/10/19 08:00 98.9 96 22 136/68 (90) 94 06/10/19 08:00 88 06/10/19 04:00 99.2 82 20 127/65 (85) 95 06/10/19 04:00 88 06/10/19 00:00 88 06/10/19 00:00 98.4 105 24 110/57 (74) 94 06/09/19 21:00 Room Air I&O Intake and Output 06/09/19 06/10/19 19:00 07:00 Intake Total 920 ml Balance 920 ml Intake Free Water 200 ml Tube Feeding 720 ml # Voids 2 Dressing: dry Wound: clean Cardiovascular: RSR Respiratory: clear, decreased breath sounds Abdomen: soft, non-tender, present bowel sounds Extremities: no tenderness, no cyanosis Laboratory Tests Test 06/10/19 04:00 White Blood Count 9.6 K/UL (4.8-10.8) Red Blood Count 3.39 M/UL (4.20-5.40) L Hemoglobin 10.0 G/DL (12.0-16.0) L Hematocrit 29.8 % (37.0-47.0) L Mean Corpuscular Volume 88 FL (80-99) Mean Corpuscular Hemoglobin 29.5 PG (27.0-31.0) Mean Corpuscular Hemoglobin Concent 33.6 G/DL (32.0-36.0) Red Cell Distribution Width 14.6 % (11.6-14.8) Platelet Count 299 K/UL (150-450) Mean Platelet Volume 6.5 FL (6.5-10.1) Neutrophils (%) (Auto) 66.5 % (45.0-75.0) Lymphocytes (%) (Auto) 18.7 % (20.0-45.0) L Monocytes (%) (Auto) 13.0 % (1.0-10.0) H Eosinophils (%) (Auto) 1.1 % (0.0-3.0) Basophils (%) (Auto) 0.7 % (0.0-2.0) Sodium Level 142 MMOL/L (136-145) Potassium Level 4.1 MMOL/L (3.5-5.1) Chloride Level 107 MMOL/L (98-107) Carbon Dioxide Level 28 MMOL/L (21-32) Anion Gap 8 mmol/L (5-15) Blood Urea Nitrogen 21 mg/dL (7-18) H Creatinine 0.7 MG/DL (0.55-1.30) Estimat Glomerular Filtration Rate > 60 mL/min (>60) Glucose Level 125 MG/DL (74-106) H Calcium Level 9.0 MG/DL (8.5-10.1) Plan Problems: (1) Episode of generalized weakness (2) Encephalopathy (3) Constipation (4) Hypercalcemia (5) Dysphagia (6) Altered level of consciousness (7) Toxic encephalopathy (8) Thrombocytopenia (9) GIB (gastrointestinal bleeding) Assessment & Plan: Upper GI lavage with g tube no blood likely lower gi bleed diverticuli? appreciate GI input s/p scope no acute findings okay for diet trend h/h abd exam benign no acute surgical intervention planned will follow with recs thank you resp support COVID + no gi bleed actively d dimer up elaquis d/c planning (10) Lower GI bleed Assessment & Plan: Findings: There is a gastrostomy tube in place. The bowel gas pattern is unremarkable. No masses or unusual calcifications. There are degenerative changes of the lumbar spine Impression: No acute process (11) Epilepsy (12) Acute febrile illness (13) CVA (cerebral vascular accident) (14) Suspected 2019 novel coronavirus infection (15) Diabetes mellitus (16) HTN (hypertension) Tomi Ordoñez Jun 10, 2019 20:20
[2019-06-11] VITALS: BP 104/52
[2019-06-11 04:00] VITALS: BP 100/49
--- NOTE | 2019-06-11 07:15 | General Progress Note ---
Assessment/Plan Problem List: (1) Suspected 2019 novel coronavirus infection ICD Codes: R68.89 - Other general symptoms and signs SNOMED: 273402096 (2) Lower GI bleed ICD Codes: K92.2 - Gastrointestinal hemorrhage, unspecified SNOMED: 63783320 (3) Thrombocytopenia ICD Codes: D69.6 - Thrombocytopenia, unspecified SNOMED: 603053022 (4) Diabetes mellitus ICD Codes: E11.9 - Type 2 diabetes mellitus without complications SNOMED: 30841518 (5) HTN (hypertension) ICD Codes: I10 - Essential (primary) hypertension SNOMED: 43980928 Status: stable Assessment/Plan: s/p colonoscopy last week now COVED +!! on Plaquenil per ID labs for am GTF tolerated will fu Subjective ROS Limited/Unobtainable: No Allergies: Coded Allergies: IODINE (Verified Allergy, Unknown, 11/10/17) Objective Last 24 Hour Vital Signs Date Time Temp Pulse Resp B/P (MAP) Pulse Ox O2 Delivery O2 Flow Rate FiO2 06/11/19 04:00 97.9 79 18 100/49 (66) 96 06/11/19 00:00 71 06/11/19 00:00 99.1 73 20 104/52 (69) 96 06/11/19 00:00 Room Air 06/10/19 20:00 98.3 68 21 113/50 (71) 97 06/10/19 20:00 62 06/10/19 16:00 98.9 83 22 128/60 (82) 96 06/10/19 12:00 88 06/10/19 12:00 98.9 89 22 127/59 (81) 94 06/10/19 09:56 136/68 06/10/19 09:55 96 136/68 06/10/19 09:00 Room Air 06/10/19 08:00 98.9 96 22 136/68 (90) 94 06/10/19 08:00 88 Intake and Output 06/10/19 06/11/19 19:00 07:00 Intake Total 160 ml Output Total 200 ml Balance -40 ml Intake Free Water 100 ml Tube Feeding 60 ml Output Urine Total 200 ml # Voids 3 Height (Feet): 5 Height (Inches): 3.00 Weight (Pounds): 151 General Appearance: no apparent distress EENT: normal ENT inspection Neck: supple Cardiovascular: normal rate Respiratory/Chest: decreased breath sounds Abdomen: normal bowel sounds, non tender, soft Extremities: non-tender Thang Doan MD Jun 11, 2019 07:15
[2019-06-11 08:00] VITALS: BP 153/60
[2019-06-11] MEDS: Valproic Acid 250mg/5ml Liquid GT SCH ×2 (08:32→20:49)
[2019-06-11] MEDS: Pantoprazole Inj IVP SCH (08:32)
[2019-06-11] MEDS: Enoxaparin 40mg Inj SUBQ SCH (08:34)
[2019-06-11 08:35] LABS: BASOPHILS % (AUTO) 0.8 % (0.0-2.0); EOSINOPHILS % (AUTO) 1.1 % (0.0-3.0); HEMATOCRIT 32.3 % (37.0-47.0); HEMOGLOBIN 10.7 G/DL (12.0-16.0); LYMPHOCYTES % (AUTO) 14.4 % (20.0-45.0); MEAN CORPUSCULAR VOLUME 89 FL (80-99); MONOCYTES % (AUTO) 8.7 % (1.0-10.0); NEUTROPHILS % (AUTO) 75.1 % (45.0-75.0); PLATELET COUNT 266 K/UL (150-450); RED BLOOD COUNT 3.64 M/UL (4.20-5.40); RED CELL DISTRIBUTION WIDTH 15.2 % (11.6-14.8); WHITE BLOOD COUNT 10.6 K/UL (4.8-10.8)
[2019-06-11] MEDS: Lisinopril 10mg tab ORAL SCH (08:35)
[2019-06-11] MEDS: Aspirin EC 81mg tab ORAL SCH (08:35)
[2019-06-11 09:07] LABS: ANION GAP 6 mmol/L (5-15); BLOOD UREA NITROGEN 28 mg/dL (7-18); CALCIUM 9.5 MG/DL (8.5-10.1); CARBON DIOXIDE 29 MMOL/L (21-32); CHLORIDE 107 MMOL/L (98-107); CREATININE 0.7 MG/DL (0.55-1.30); POTASSIUM 5.3 MMOL/L (3.5-5.1); SODIUM 141 MMOL/L (136-145)
--- NOTE | 2019-06-11 10:29 | Infectious Diseases Prog Note ---
"Assessment/Plan Assessment/Plan antibiotics : none A 1. COVID 19 pneumonia s/p rx with hydroxychloroquine test + 4.8.20, 4.15.20 2. fever improving 3. GI bleeding 4. diabetes mellitus 5. epilepsy 6. dementia 7. CVA 8. + blood cultures with coag neg staph | diphtheroids likely contaminated P 1. observe off antibiotics 2. will follow up cultures 3. continue isolation Subjective ROS Limited/Unobtainable: Yes Allergies: Coded Allergies: IODINE (Verified Allergy, Unknown, 11/10/17) Objective Vital Signs Last 24 Hour Vital Signs Date Time Temp Pulse Resp B/P (MAP) Pulse Ox O2 Delivery O2 Flow Rate FiO2 06/11/19 09:00 Room Air 06/11/19 08:35 153/60 06/11/19 08:35 88 153/60 06/11/19 08:00 96.6 88 20 153/60 (91) 97 06/11/19 04:00 97.9 79 18 100/49 (66) 96 06/11/19 04:00 68 06/11/19 00:00 71 06/11/19 00:00 99.1 73 20 104/52 (69) 96 06/11/19 00:00 Room Air 06/10/19 20:00 98.3 68 21 113/50 (71) 97 06/10/19 20:00 62 06/10/19 16:00 98.9 83 22 128/60 (82) 96 06/10/19 12:00 88 06/10/19 12:00 98.9 89 22 127/59 (81) 94 Height (Feet): 5 Height (Inches): 3.00 Weight (Pounds): 150 Microbiology Date/Time Source Procedure Growth Status 06/08/19 12:53 Nasopharynx Coronavirus COVID-19 PCR (HOME) - Final Complete Laboratory Tests Test 06/11/19 07:10 White Blood Count 10.6 K/UL (4.8-10.8) Red Blood Count 3.64 M/UL (4.20-5.40) L Hemoglobin 10.7 G/DL (12.0-16.0) L Hematocrit 32.3 % (37.0-47.0) L Mean Corpuscular Volume 89 FL (80-99) Mean Corpuscular Hemoglobin 29.5 PG (27.0-31.0) Mean Corpuscular Hemoglobin Concent 33.1 G/DL (32.0-36.0) Red Cell Distribution Width 15.2 % (11.6-14.8) H Platelet Count 266 K/UL (150-450) Mean Platelet Volume 7.0 FL (6.5-10.1) Neutrophils (%) (Auto) 75.1 % (45.0-75.0) H Lymphocytes (%) (Auto) 14.4 % (20.0-45.0) L Monocytes (%) (Auto) 8.7 % (1.0-10.0) Eosinophils (%) (Auto) 1.1 % (0.0-3.0) Basophils (%) (Auto) 0.8 % (0.0-2.0) Sodium Level 141 MMOL/L (136-145) Potassium Level 5.3 MMOL/L (3.5-5.1) H Chloride Level 107 MMOL/L (98-107) Carbon Dioxide Level 29 MMOL/L (21-32) Anion Gap 6 mmol/L (5-15) Blood Urea Nitrogen 28 mg/dL (7-18) H Creatinine 0.7 MG/DL (0.55-1.30) Estimat Glomerular Filtration Rate > 60 mL/min (>60) Glucose Level 130 MG/DL (74-106) H Calcium Level 9.5 MG/DL (8.5-10.1) Current Medications Medications (Trade) Dose Ordered Sig/Claritza Route PRN Reason Start Time Stop Time Status Last Admin Dose Admin Acetaminophen (Tylenol) 650 mg Q4H PRN GT Mild Pain (Pain Scale 1-3) 06/08/19 13:04 07/08/19 13:03 Acetaminophen (Tylenol) 650 mg Q4H PRN GT T>100.4 06/08/19 13:04 07/08/19 13:03 Amlodipine Besylate (Norvasc) 10 mg DAILY GT 06/09/19 09:00 06/30/19 08:59 06/11/19 08:35 Aspirin (Ecotrin) 81 mg DAILY ORAL 06/10/19 09:00 07/25/19 08:59 06/11/19 08:35 Dextrose (Dextrose 50%) 25 ml Q30M PRN IV Hypoglycemia 06/08/19 13:30 08/28/19 13:29 Dextrose (Dextrose 50%) 50 ml Q30M PRN IV Hypoglycemia 06/08/19 13:30 08/28/19 13:29 Enoxaparin Sodium (Lovenox) 40 mg DAILY SUBQ 06/10/19 09:00 09/08/19 08:59 06/11/19 08:34 Escitalopram Oxalate (Lexapro) 10 mg DAILY GT 06/09/19 09:00 06/30/19 08:59 06/11/19 08:35 Lisinopril (ZestriL) 10 mg DAILY ORAL 06/10/19 09:00 07/10/19 08:59 06/11/19 08:35 Magnesium Hydroxide (Mom) 30 ml DAILYPRN PRN GT Constipation 06/08/19 13:15 07/08/19 13:03 06/10/19 21:49 Pantoprazole (Protonix) 40 mg DAILY IVP 06/09/19 09:00 06/30/19 10:59 06/11/19 08:32 Pravastatin Sodium (Pravachol) 80 mg BEDTIME GT 06/08/19 21:00 06/29/19 20:59 06/10/19 21:50 Risperidone (RisperDAL) 1 mg BID GT 06/08/19 18:00 07/14/19 17:59 06/11/19 08:35 Valproic Acid (Depakene) 250 mg Q12HR GT 06/08/19 21:00 06/29/19 20:59 06/11/19 08:32 Radha Dunham MD Jun 11, 2019 10:29"
[2019-06-11 12:00] VITALS: BP 104/57
--- NOTE | 2019-06-11 12:18 | Pulmonology Progress Note ---
Assessment/Plan Assessment/Plan IMPRESSION: 1. Rectal bleeding. 2. COVID 19 positive 3. CVA. 4. prison resident. 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 Abx per ID CXR clear Continue oxygen prn and pulmonary hygiene. Currently on RA Subjective Interval Events: None new Constitutional: Reports: no symptoms HEENT: Repors: no symptoms Respiratory: Reports: no symptoms Cardiovascular: Reports: no symptoms Gastrointestinal/Abdominal: Reports: no symptoms Allergies: Coded Allergies: IODINE (Verified Allergy, Unknown, 11/10/17) Objective Last 24 Hour Vital Signs Date Time Temp Pulse Resp B/P (MAP) Pulse Ox O2 Delivery O2 Flow Rate FiO2 06/11/19 12:00 86 06/11/19 09:00 Room Air 06/11/19 08:35 153/60 06/11/19 08:35 88 153/60 06/11/19 08:00 96.6 88 20 153/60 (91) 97 06/11/19 08:00 74 06/11/19 04:00 97.9 79 18 100/49 (66) 96 06/11/19 04:00 68 06/11/19 00:00 71 06/11/19 00:00 99.1 73 20 104/52 (69) 96 06/11/19 00:00 Room Air 06/10/19 20:00 98.3 68 21 113/50 (71) 97 06/10/19 20:00 62 06/10/19 16:00 98.9 83 22 128/60 (82) 96 Intake and Output 06/10/19 06/11/19 19:00 07:00 Intake Total 160 ml Output Total 200 ml Balance -40 ml Intake Free Water 100 ml Tube Feeding 60 ml Output Urine Total 200 ml # Voids 3 # Bowel Movements 1 General Appearance: no acute distress HEENT: normocephalic Respiratory/Chest: chest wall non-tender Cardiovascular: normal peripheral pulses Abdomen: normal bowel sounds Microbiology Date/Time Source Procedure Growth Status 06/08/19 12:53 Nasopharynx Coronavirus COVID-19 PCR (HOME) - Final Complete Laboratory Tests 06/11/19 07:10: White Blood Count 10.6, Red Blood Count 3.64L, Hemoglobin 10.7L, Hematocrit 32.3L, Mean Corpuscular Volume 89, Mean Corpuscular Hemoglobin 29.5, Mean Corpuscular Hemoglobin Concent 33.1, Red Cell Distribution Width 15.2H, Platelet Count 266, Mean Platelet Volume 7.0, Neutrophils (%) (Auto) 75.1H, Lymphocytes (%) (Auto) 14.4L, Monocytes (%) (Auto) 8.7, Eosinophils (%) (Auto) 1.1, Basophils (%) (Auto) 0.8, Sodium Level 141, Potassium Level 5.3H, Chloride Level 107, Carbon Dioxide Level 29, Anion Gap 6, Blood Urea Nitrogen 28H, Creatinine 0.7, Estimat Glomerular Filtration Rate > 60, Glucose Level 130H, Calcium Level 9.5 Current Medications Medications (Trade) Dose Ordered Sig/Claritza Route PRN Reason Start Time Stop Time Status Last Admin Dose Admin Acetaminophen (Tylenol) 650 mg Q4H PRN GT Mild Pain (Pain Scale 1-3) 06/08/19 13:04 07/08/19 13:03 Acetaminophen (Tylenol) 650 mg Q4H PRN GT T>100.4 06/08/19 13:04 07/08/19 13:03 Amlodipine Besylate (Norvasc) 10 mg DAILY GT 06/09/19 09:00 06/30/19 08:59 06/11/19 08:35 Aspirin (Ecotrin) 81 mg DAILY ORAL 06/10/19 09:00 07/25/19 08:59 06/11/19 08:35 Dextrose (Dextrose 50%) 25 ml Q30M PRN IV Hypoglycemia 06/08/19 13:30 08/28/19 13:29 Dextrose (Dextrose 50%) 50 ml Q30M PRN IV Hypoglycemia 06/08/19 13:30 08/28/19 13:29 Enoxaparin Sodium (Lovenox) 40 mg DAILY SUBQ 06/10/19 09:00 09/08/19 08:59 06/11/19 08:34 Escitalopram Oxalate (Lexapro) 10 mg DAILY GT 06/09/19 09:00 06/30/19 08:59 06/11/19 08:35 Lisinopril (ZestriL) 10 mg DAILY ORAL 06/10/19 09:00 07/10/19 08:59 06/11/19 08:35 Magnesium Hydroxide (Mom) 30 ml DAILYPRN PRN GT Constipation 06/08/19 13:15 07/08/19 13:03 06/10/19 21:49 Pantoprazole (Protonix) 40 mg DAILY IVP 06/09/19 09:00 06/30/19 10:59 06/11/19 08:32 Pravastatin Sodium (Pravachol) 80 mg BEDTIME GT 06/08/19 21:00 06/29/19 20:59 06/10/19 21:50 Risperidone (RisperDAL) 1 mg BID GT 06/08/19 18:00 07/14/19 17:59 06/11/19 08:35 Valproic Acid (Depakene) 250 mg Q12HR GT 06/08/19 21:00 06/29/19 20:59 06/11/19 08:32 Horace Landaverde MD Jun 11, 2019 12:18
--- NOTE | 2019-06-11 14:50 | Surgery Progress Note ---
Surgery Progress Note Subjective Additional Comments stable no acute events labs noted appears relaxed Objective Last 24 Hour Vital Signs Date Time Temp Pulse Resp B/P (MAP) Pulse Ox O2 Delivery O2 Flow Rate FiO2 06/11/19 12:00 99.1 73 20 104/57 (73) 96 06/11/19 12:00 86 06/11/19 09:00 Room Air 06/11/19 08:35 153/60 06/11/19 08:35 88 153/60 06/11/19 08:00 96.6 88 20 153/60 (91) 97 06/11/19 08:00 74 06/11/19 04:00 97.9 79 18 100/49 (66) 96 06/11/19 04:00 68 06/11/19 00:00 71 06/11/19 00:00 99.1 73 20 104/52 (69) 96 06/11/19 00:00 Room Air 06/10/19 20:00 98.3 68 21 113/50 (71) 97 06/10/19 20:00 62 06/10/19 16:00 98.9 83 22 128/60 (82) 96 I&O Intake and Output 06/10/19 06/11/19 19:00 07:00 Intake Total 160 ml Output Total 200 ml Balance -40 ml Intake Free Water 100 ml Tube Feeding 60 ml Output Urine Total 200 ml # Voids 3 # Bowel Movements 1 Dressing: saturated Wound: clean Cardiovascular: RSR Respiratory: decreased breath sounds Abdomen: soft, non-tender, present bowel sounds Extremities: no tenderness, no cyanosis Laboratory Tests Test 06/11/19 07:10 White Blood Count 10.6 K/UL (4.8-10.8) Red Blood Count 3.64 M/UL (4.20-5.40) L Hemoglobin 10.7 G/DL (12.0-16.0) L Hematocrit 32.3 % (37.0-47.0) L Mean Corpuscular Volume 89 FL (80-99) Mean Corpuscular Hemoglobin 29.5 PG (27.0-31.0) Mean Corpuscular Hemoglobin Concent 33.1 G/DL (32.0-36.0) Red Cell Distribution Width 15.2 % (11.6-14.8) H Platelet Count 266 K/UL (150-450) Mean Platelet Volume 7.0 FL (6.5-10.1) Neutrophils (%) (Auto) 75.1 % (45.0-75.0) H Lymphocytes (%) (Auto) 14.4 % (20.0-45.0) L Monocytes (%) (Auto) 8.7 % (1.0-10.0) Eosinophils (%) (Auto) 1.1 % (0.0-3.0) Basophils (%) (Auto) 0.8 % (0.0-2.0) Sodium Level 141 MMOL/L (136-145) Potassium Level 5.3 MMOL/L (3.5-5.1) H Chloride Level 107 MMOL/L (98-107) Carbon Dioxide Level 29 MMOL/L (21-32) Anion Gap 6 mmol/L (5-15) Blood Urea Nitrogen 28 mg/dL (7-18) H Creatinine 0.7 MG/DL (0.55-1.30) Estimat Glomerular Filtration Rate > 60 mL/min (>60) Glucose Level 130 MG/DL (74-106) H Calcium Level 9.5 MG/DL (8.5-10.1) Plan Problems: (1) Episode of generalized weakness (2) Encephalopathy (3) Constipation (4) Hypercalcemia (5) Dysphagia (6) Altered level of consciousness (7) Toxic encephalopathy (8) Thrombocytopenia (9) GIB (gastrointestinal bleeding) Assessment & Plan: Upper GI lavage with g tube no blood likely lower gi bleed diverticuli? appreciate GI input s/p scope no acute findings okay for diet trend h/h abd exam benign no acute surgical intervention planned will follow with recs thank you resp support COVID + no gi bleed actively d dimer up elaquis d/c planning (10) Lower GI bleed Assessment & Plan: Findings: There is a gastrostomy tube in place. The bowel gas pattern is unremarkable. No masses or unusual calcifications. There are degenerative changes of the lumbar spine Impression: No acute process (11) Epilepsy (12) Acute febrile illness (13) CVA (cerebral vascular accident) (14) Suspected 2019 novel coronavirus infection (15) Diabetes mellitus (16) HTN (hypertension) Tomi Ordoñez Jun 11, 2019 14:50
[2019-06-11 16:00] VITALS: BP 139/60
--- NOTE | 2019-06-11 16:10 | Cardiac Electrophysiology PN ---
Assessment/Plan Assessment/Plan 1. Bradycardia. Resolved off Coreg. Echo still pending as COVID still positive 2. Hypertension, on amlodipine 10 daily and Lisinopril 10 daily 3. Hyperlipidemia, on Pravachol 4. Rectal bleeding. S/P Colonoscopy by Dr. Doan that showed diverticulitis 5. History of CVA. 6. S/P PEG 7. COVID PNA, positive on 06/01/19 completed Plaquenil. QTc 455 Awaiting another Covid test pre DC DW RN Subjective Subjective In SR in isolation as second COVID was positive. Comfortable in NAD in SR. Re- swabbed for Covid awaiting results Objective Last 24 Hour Vital Signs Date Time Temp Pulse Resp B/P (MAP) Pulse Ox O2 Delivery O2 Flow Rate FiO2 06/11/19 12:00 99.1 73 20 104/57 (73) 96 06/11/19 12:00 86 06/11/19 09:00 Room Air 06/11/19 08:35 153/60 06/11/19 08:35 88 153/60 06/11/19 08:00 96.6 88 20 153/60 (91) 97 06/11/19 08:00 74 06/11/19 04:00 97.9 79 18 100/49 (66) 96 06/11/19 04:00 68 06/11/19 00:00 71 06/11/19 00:00 99.1 73 20 104/52 (69) 96 06/11/19 00:00 Room Air 06/10/19 20:00 98.3 68 21 113/50 (71) 97 06/10/19 20:00 62 Intake and Output 06/10/19 06/11/19 19:00 07:00 Intake Total 160 ml Output Total 200 ml Balance -40 ml Intake Free Water 100 ml Tube Feeding 60 ml Output Urine Total 200 ml # Voids 3 # Bowel Movements 1 Laboratory Tests Test 06/11/19 07:10 White Blood Count 10.6 K/UL (4.8-10.8) Red Blood Count 3.64 M/UL (4.20-5.40) L Hemoglobin 10.7 G/DL (12.0-16.0) L Hematocrit 32.3 % (37.0-47.0) L Mean Corpuscular Volume 89 FL (80-99) Mean Corpuscular Hemoglobin 29.5 PG (27.0-31.0) Mean Corpuscular Hemoglobin Concent 33.1 G/DL (32.0-36.0) Red Cell Distribution Width 15.2 % (11.6-14.8) H Platelet Count 266 K/UL (150-450) Mean Platelet Volume 7.0 FL (6.5-10.1) Neutrophils (%) (Auto) 75.1 % (45.0-75.0) H Lymphocytes (%) (Auto) 14.4 % (20.0-45.0) L Monocytes (%) (Auto) 8.7 % (1.0-10.0) Eosinophils (%) (Auto) 1.1 % (0.0-3.0) Basophils (%) (Auto) 0.8 % (0.0-2.0) Sodium Level 141 MMOL/L (136-145) Potassium Level 5.3 MMOL/L (3.5-5.1) H Chloride Level 107 MMOL/L (98-107) Carbon Dioxide Level 29 MMOL/L (21-32) Anion Gap 6 mmol/L (5-15) Blood Urea Nitrogen 28 mg/dL (7-18) H Creatinine 0.7 MG/DL (0.55-1.30) Estimat Glomerular Filtration Rate > 60 mL/min (>60) Glucose Level 130 MG/DL (74-106) H Calcium Level 9.5 MG/DL (8.5-10.1) Objective HEAD AND NECK: No JVD, LUNGS: Coarse rhonchi. CARDIOVASCULAR: Regular S1 and S2. Bradycardic. ABDOMEN: Soft and status post G-tube. EXTREMITIES: No pitting edema. Telly Gottlieb MD Jun 11, 2019 16:10
--- NOTE | 2019-06-11 16:39 | General Progress Note ---
Assessment/Plan Status: stable Assessment/Plan: 74-year-old female from [facility] w/PMH CVA, dysphasia s/p PEG, dementia, epilepsy, ?DMT2 who presents with bright red blood per rectum, GIB. Patient came facility with multiple COVID positive patients, pt is COVID positive. #Acute blood loss anemia - stable #Acute GIB - stable -continue inpatient level of care -cont. to monitor hgb -Colonoscopy 06/01 without active bleed -Surgery following - no sx at this time -GI following - no further intervention at this time. #COVID19 infection, second PCR positive #Fever - resolved #elevated D-Dimer #Staph bacteremia - suspect contaminant -BCx staph bacteremia, repeat negative, likely contaminant per ID -d-dimer elevated on admission, down trending -d/w Pulm, no need for OAC -ID: s/p hydroxychloroquine, cont. to monitor off abx -repeat COVID positive -will repeat test -pt will need 2 negative tests prior to d/c back to CVP #h/o DMT2 -per chart review pt w/h/o DM -no medications seen in APR from [place] -Hgb A1C 5.9, not in diabetic range #HTN #HLD -ASA -home coreg held 2/2 bradycardia -amlodipine 10 mg -lisinopril added -cardio, Dr. Gottlieb. following, recs appreciated #H/o Epilepsy #Seizures #Dementia -no seizure activity reported by [place] -cont. valproic acid -cont. home risperdol -Neurology consulted #Dysphagia s/p PEG -TF per nutrition #Hyperkalemia - resolved #Hypokalemia - resolved -May need to stop ACEI due to hyperkalemia -repeat BMP DVT PPx: lovenox Time spent on encounter: 35 mins, 20 on counseling, coordination of care with consulting MDs, RN, supplier quality manager. Time of note doesn't reflect time of encounter. Subjective Date patient seen: Jun 11, 2019 Time patient seen: 16:36 ROS Limited/Unobtainable: Yes Allergies: Coded Allergies: IODINE (Verified Allergy, Unknown, 11/10/17) Subjective Follow up for acute blood loss anemia COVID19 positivity No acute events overnight, spoke with RN Objective Last 24 Hour Vital Signs Date Time Temp Pulse Resp B/P (MAP) Pulse Ox O2 Delivery O2 Flow Rate FiO2 4/18/20 12:00 99.1 73 20 104/57 (73) 96 06/11/19 12:00 86 06/11/19 09:00 Room Air 06/11/19 08:35 153/60 06/11/19 08:35 88 153/60 06/11/19 08:00 96.6 88 20 153/60 (91) 97 06/11/19 08:00 74 06/11/19 04:00 97.9 79 18 100/49 (66) 96 06/11/19 04:00 68 06/11/19 00:00 71 06/11/19 00:00 99.1 73 20 104/52 (69) 96 06/11/19 00:00 Room Air 06/10/19 20:00 98.3 68 21 113/50 (71) 97 06/10/19 20:00 62 Intake and Output 06/10/19 06/11/19 19:00 07:00 Intake Total 160 ml Output Total 200 ml Balance -40 ml Intake Free Water 100 ml Tube Feeding 60 ml Output Urine Total 200 ml # Voids 3 # Bowel Movements 1 Laboratory Tests 06/11/19 07:10: White Blood Count 10.6, Red Blood Count 3.64L, Hemoglobin 10.7L, Hematocrit 32.3L, Mean Corpuscular Volume 89, Mean Corpuscular Hemoglobin 29.5, Mean Corpuscular Hemoglobin Concent 33.1, Red Cell Distribution Width 15.2H, Platelet Count 266, Mean Platelet Volume 7.0, Neutrophils (%) (Auto) 75.1H, Lymphocytes (%) (Auto) 14.4L, Monocytes (%) (Auto) 8.7, Eosinophils (%) (Auto) 1.1, Basophils (%) (Auto) 0.8, Sodium Level 141, Potassium Level 5.3H, Chloride Level 107, Carbon Dioxide Level 29, Anion Gap 6, Blood Urea Nitrogen 28H, Creatinine 0.7, Estimat Glomerular Filtration Rate > 60, Glucose Level 130H, Calcium Level 9.5 Height (Feet): 5 Height (Inches): 3.00 Weight (Pounds): 150 General Appearance: alert, confused Neck: normal alignment, supple Cardiovascular: normal rate, regular rhythm Respiratory/Chest: lungs clear, normal breath sounds Abdomen: non tender, soft Molazadeh-Yazdi,Pierce MD Jun 11, 2019 16:39
[2019-06-11 20:00] VITALS: BP 108/53
--- NOTE | 2019-06-11 21:23 | Neurology Progress Note ---
Interim History Interim History ROS Limited/Unobtainable: Yes Interim History no new deficits Objective Physical Exam Last Vital Signs Date Time Temp Pulse Resp B/P (MAP) Pulse Ox O2 Delivery O2 Flow Rate FiO2 06/11/19 16:00 72 06/11/19 16:00 98.3 18 139/60 (86) 98 06/11/19 09:00 Room Air 06/02/19 11:30 4 Laboratory Tests Test 06/11/19 07:10 White Blood Count 10.6 K/UL (4.8-10.8) Red Blood Count 3.64 M/UL (4.20-5.40) L Hemoglobin 10.7 G/DL (12.0-16.0) L Hematocrit 32.3 % (37.0-47.0) L Mean Corpuscular Volume 89 FL (80-99) Mean Corpuscular Hemoglobin 29.5 PG (27.0-31.0) Mean Corpuscular Hemoglobin Concent 33.1 G/DL (32.0-36.0) Red Cell Distribution Width 15.2 % (11.6-14.8) H Platelet Count 266 K/UL (150-450) Mean Platelet Volume 7.0 FL (6.5-10.1) Neutrophils (%) (Auto) 75.1 % (45.0-75.0) H Lymphocytes (%) (Auto) 14.4 % (20.0-45.0) L Monocytes (%) (Auto) 8.7 % (1.0-10.0) Eosinophils (%) (Auto) 1.1 % (0.0-3.0) Basophils (%) (Auto) 0.8 % (0.0-2.0) Sodium Level 141 MMOL/L (136-145) Potassium Level 5.3 MMOL/L (3.5-5.1) H Chloride Level 107 MMOL/L (98-107) Carbon Dioxide Level 29 MMOL/L (21-32) Anion Gap 6 mmol/L (5-15) Blood Urea Nitrogen 28 mg/dL (7-18) H Creatinine 0.7 MG/DL (0.55-1.30) Estimat Glomerular Filtration Rate > 60 mL/min (>60) Glucose Level 130 MG/DL (74-106) H Calcium Level 9.5 MG/DL (8.5-10.1) Neurologic Exam Objective lethargic, withdraws a to pain contracture in all 4. non verbal cc 36 min Impression/Recommendations Problems: (1) Episode of generalized weakness (2) Encephalopathy (3) Constipation (4) Hypercalcemia (5) Dysphagia (6) Altered level of consciousness (7) Toxic encephalopathy (8) Thrombocytopenia (9) GIB (gastrointestinal bleeding) (10) Lower GI bleed (11) Epilepsy (12) Acute febrile illness (13) CVA (cerebral vascular accident) (14) Suspected 2019 novel coronavirus infection (15) Diabetes mellitus (16) HTN (hypertension) Status: stable Diagnostic Impression ICU level of care MAp > 65 neuro checks q2h ATB per primary cont depakote 500 mg bid rule out covid19 del precautions no need for LP holding antiplatelets Larry Juarez MD Jun 11, 2019 21:23
[2019-06-12] VITALS: BP 112/55
[2019-06-12 04:00] VITALS: BP 118/60
[2019-06-12 07:06] LABS: ANION GAP 7 mmol/L (5-15); BLOOD UREA NITROGEN 25 mg/dL (7-18); CARBON DIOXIDE 28 MMOL/L (21-32); CHLORIDE 109 MMOL/L (98-107); CREATININE 0.6 MG/DL (0.55-1.30); POTASSIUM 5.4 MMOL/L (3.5-5.1); SODIUM 144 MMOL/L (136-145)
[2019-06-12 08:00] VITALS: BP 141/76
[2019-06-12] MEDS: Aspirin EC 81mg tab ORAL SCH (09:21)
[2019-06-12] MEDS: Lisinopril 10mg tab ORAL SCH (09:21)
[2019-06-12] MEDS: Pantoprazole Inj IVP SCH (09:22)
[2019-06-12] MEDS: Valproic Acid 250mg/5ml Liquid GT SCH ×2 (09:22→21:38)
[2019-06-12] MEDS: Enoxaparin 40mg Inj SUBQ SCH (09:27)
--- NOTE | 2019-06-12 10:09 | Hematology/Onc Progress Note ---
Assessment/Plan Assessment/Plan Assessment and Recs: # Pancytopenia with Acute blood loss anemia, currently has been progressing is due to COVID19 --> likely related to underlying infection, covid rule out at this time --> hepatitis and hiv are BOTH NEG --> us of the abdomen is pending, r/o hsm and cirrhosisnone noted and gtube in place noted --> smear of the periphery is pending->reviewed no schistocytes seen --> abx as per id, started --> pressors prn --> 06/01 for colo by Olimpia showed 3 polyps/diverticulitis --> repeat colo in 3 months # Acute GIB, with decrease in h/h --> no evidence of hemolysis is noted --> transfuse as needed, hgb goal >7 --> IVF hgb trend 10.4-->11.5-->10.5-->11 --> Protonix given in ED --> GI consulted, Dr Doan: GT lavage neg, transfuse plts, prep for possible colonoscopy, also per surg # Fever likely due to covid 19++ --> currently is on iso --> COVID 19++ --> KUB negative --> CXR ?right lung infiltrate --> per pulm --> monitor off abx # DMT2 --> accuchecks qac and qhs --> iss prn # HTN --> sbp goal is less than 140 --> as per cards # HLD --> holding ASA given acute GIB # H/o Epilepsy # Seizures # Dementia # Dysphagia s/p PEG --> on tfs # DVT PPx: SCDs given acute GIB Appreciate consultation and jose Rn Subjective Allergies: Coded Allergies: IODINE (Verified Allergy, Unknown, 11/10/17) Subjective 05/31 is for colo tomorrow, labs reviewed, hgb stable 06/01 as per gi eval, for scope, no night sweats, jose rn 06/02 no major changes, labs reviewed, no bleeding, colo done yesterday, 3 polyps noted 06/05 asleep, no bleeding or chills, labs have been noted, no night swearts, hgb 10.5 06/06 no major changes, no bleeding, labs reviewed, no night sweats 06/07 no events, no bleeding or night sweats, labs noted, now with COVID++ 06/08 labs noted, hgb is stable, dw gi, no bleeding at this time 06/09 on tele, off abx, labs reviewed, on room air 06/11 no overnight events, afebrile, no sob, Objective Objective Current Medications Medications (Trade) Dose Ordered Sig/Claritza Route PRN Reason Start Time Stop Time Status Last Admin Dose Admin Acetaminophen (Tylenol) 650 mg Q4H PRN GT Mild Pain (Pain Scale 1-3) 06/08/19 13:04 07/08/19 13:03 Acetaminophen (Tylenol) 650 mg Q4H PRN GT T>100.4 06/08/19 13:04 07/08/19 13:03 Amlodipine Besylate (Norvasc) 10 mg DAILY GT 06/09/19 09:00 06/30/19 08:59 06/12/19 09:21 Aspirin (Ecotrin) 81 mg DAILY ORAL 06/10/19 09:00 07/25/19 08:59 06/12/19 09:21 Dextrose (Dextrose 50%) 25 ml Q30M PRN IV Hypoglycemia 06/08/19 13:30 08/28/19 13:29 Dextrose (Dextrose 50%) 50 ml Q30M PRN IV Hypoglycemia 06/08/19 13:30 08/28/19 13:29 Enoxaparin Sodium (Lovenox) 40 mg DAILY SUBQ 06/10/19 09:00 09/08/19 08:59 06/12/19 09:27 Escitalopram Oxalate (Lexapro) 10 mg DAILY GT 06/09/19 09:00 06/30/19 08:59 06/12/19 09:21 Lisinopril (ZestriL) 10 mg DAILY ORAL 06/10/19 09:00 07/10/19 08:59 06/12/19 09:21 Pantoprazole (Protonix) 40 mg DAILY IVP 06/09/19 09:00 06/30/19 10:59 06/12/19 09:22 Pravastatin Sodium (Pravachol) 80 mg BEDTIME GT 06/08/19 21:00 06/29/19 20:59 06/11/19 20:49 Risperidone (RisperDAL) 1 mg BID GT 06/08/19 18:00 07/14/19 17:59 06/12/19 09:21 Valproic Acid (Depakene) 250 mg Q12HR GT 06/08/19 21:00 06/29/19 20:59 06/12/19 09:22 Last 24 Hour Vital Signs Date Time Temp Pulse Resp B/P (MAP) Pulse Ox O2 Delivery O2 Flow Rate FiO2 06/12/19 09:21 141/76 06/12/19 09:21 80 141/76 06/12/19 08:00 98.7 80 19 141/76 (97) 96 06/12/19 04:00 98.5 88 19 118/60 (79) 98 06/12/19 04:00 72 06/12/19 00:00 98.6 84 20 112/55 (74) 99 06/12/19 00:00 83 06/11/19 21:00 Room Air 06/11/19 20:00 98.4 81 20 108/53 (71) 98 06/11/19 20:00 72 06/11/19 16:00 72 06/11/19 16:00 98.3 67 18 139/60 (86) 98 06/11/19 12:00 99.1 73 20 104/57 (73) 96 06/11/19 12:00 86 06/11/19 09:00 Room Air 06/11/19 08:35 153/60 06/11/19 08:35 88 153/60 06/11/19 08:00 96.6 88 20 153/60 (91) 97 06/11/19 08:00 74 06/11/19 04:00 97.9 79 18 100/49 (66) 96 06/11/19 04:00 68 06/11/19 00:00 71 06/11/19 00:00 99.1 73 20 104/52 (69) 96 06/11/19 00:00 Room Air 06/10/19 20:00 98.3 68 21 113/50 (71) 97 06/10/19 20:00 62 06/10/19 16:00 98.9 83 22 128/60 (82) 96 06/10/19 12:00 88 06/10/19 12:00 98.9 89 22 127/59 (81) 94 Intake and Output 06/11/19 06/12/19 19:00 07:00 Output Total 900 ml Balance -900 ml Output Urine Total 900 ml # Voids 1 Labs Test 06/10/19 04:00 06/11/19 07:10 06/12/19 04:30 White Blood Count 9.6 K/UL (4.8-10.8) 10.6 K/UL (4.8-10.8) Red Blood Count 3.39 M/UL (4.20-5.40) 3.64 M/UL (4.20-5.40) Hemoglobin 10.0 G/DL (12.0-16.0) 10.7 G/DL (12.0-16.0) Hematocrit 29.8 % (37.0-47.0) 32.3 % (37.0-47.0) Mean Corpuscular Volume 88 FL (80-99) 89 FL (80-99) Mean Corpuscular Hemoglobin 29.5 PG (27.0-31.0) 29.5 PG (27.0-31.0) Mean Corpuscular Hemoglobin Concent 33.6 G/DL (32.0-36.0) 33.1 G/DL (32.0-36.0) Red Cell Distribution Width 14.6 % (11.6-14.8) 15.2 % (11.6-14.8) Platelet Count 299 K/UL (150-450) 266 K/UL (150-450) Mean Platelet Volume 6.5 FL (6.5-10.1) 7.0 FL (6.5-10.1) Neutrophils (%) (Auto) 66.5 % (45.0-75.0) 75.1 % (45.0-75.0) Lymphocytes (%) (Auto) 18.7 % (20.0-45.0) 14.4 % (20.0-45.0) Monocytes (%) (Auto) 13.0 % (1.0-10.0) 8.7 % (1.0-10.0) Eosinophils (%) (Auto) 1.1 % (0.0-3.0) 1.1 % (0.0-3.0) Basophils (%) (Auto) 0.7 % (0.0-2.0) 0.8 % (0.0-2.0) Sodium Level 142 MMOL/L (136-145) 141 MMOL/L (136-145) 144 MMOL/L (136-145) Potassium Level 4.1 MMOL/L (3.5-5.1) 5.3 MMOL/L (3.5-5.1) 5.4 MMOL/L (3.5-5.1) Chloride Level 107 MMOL/L (98-107) 107 MMOL/L (98-107) 109 MMOL/L (98-107) Carbon Dioxide Level 28 MMOL/L (21-32) 29 MMOL/L (21-32) 28 MMOL/L (21-32) Anion Gap 8 mmol/L (5-15) 6 mmol/L (5-15) 7 mmol/L (5-15) Blood Urea Nitrogen 21 mg/dL (7-18) 28 mg/dL (7-18) 25 mg/dL (7-18) Creatinine 0.7 MG/DL (0.55-1.30) 0.7 MG/DL (0.55-1.30) 0.6 MG/DL (0.55-1.30) Estimat Glomerular Filtration Rate > 60 mL/min (>60) > 60 mL/min (>60) > 60 mL/min (>60) Glucose Level 125 MG/DL (74-106) 130 MG/DL (74-106) 138 MG/DL (74-106) Calcium Level 9.0 MG/DL (8.5-10.1) 9.5 MG/DL (8.5-10.1) 9.0 MG/DL (8.5-10.1) Height (Feet): 5 Height (Inches): 3.00 Weight (Pounds): 151 Objective Physical Exam Physical Exam Narrative General: NAD, A&O x 1, awake, alert, noncommunicative HEENT: NCAT, EOMi, dry mucous membranes CV: RRR, no murmurs, rubs, or gallops Pulm: CTAB, No wheezes, rhonchi, or rales, no accessory muscle usage or conversational dyspnea GI: Soft, nontender, nondistended, bowel sounds present, +PEG c/d/i Neuro: Limited due to patient communication/participation Ext: No lower extremity edema bilaterally Skin: no rashes lesions or ulcers Timothy Wong MD Jun 12, 2019 10:09
--- NOTE | 2019-06-12 10:36 | Pulmonology Progress Note ---
Assessment/Plan Assessment/Plan IMPRESSION: 1. Rectal bleeding. 2. COVID 19 positive 3. CVA. 4. alf resident. DISCUSSION: COVID 19 positive I will follow as professor of voice. Abx per ID CXR clear Continue oxygen prn and pulmonary hygiene. Currently on RA Subjective Interval Events: None new Constitutional: Reports: no symptoms HEENT: Repors: no symptoms Respiratory: Reports: no symptoms Cardiovascular: Reports: no symptoms Gastrointestinal/Abdominal: Reports: no symptoms Genitourinary: Reports: no symptoms Allergies: Coded Allergies: IODINE (Verified Allergy, Unknown, 11/10/17) Objective Last 24 Hour Vital Signs Date Time Temp Pulse Resp B/P (MAP) Pulse Ox O2 Delivery O2 Flow Rate FiO2 06/12/19 09:21 141/76 06/12/19 09:21 80 141/76 06/12/19 08:00 98.7 80 19 141/76 (97) 96 06/12/19 04:00 98.5 88 19 118/60 (79) 98 06/12/19 04:00 72 06/12/19 00:00 98.6 84 20 112/55 (74) 99 06/12/19 00:00 83 06/11/19 21:00 Room Air 06/11/19 20:00 98.4 81 20 108/53 (71) 98 06/11/19 20:00 72 06/11/19 16:00 72 06/11/19 16:00 98.3 67 18 139/60 (86) 98 06/11/19 12:00 99.1 73 20 104/57 (73) 96 06/11/19 12:00 86 Intake and Output 06/11/19 06/12/19 19:00 07:00 Output Total 900 ml Balance -900 ml Output Urine Total 900 ml # Voids 1 General Appearance: no acute distress HEENT: normocephalic Respiratory/Chest: chest wall non-tender Cardiovascular: normal peripheral pulses Abdomen: normal bowel sounds Microbiology Date/Time Source Procedure Growth Status 06/10/19 12:20 Nasopharynx Coronavirus COVID-19 PCR (HOME) - Final Complete Laboratory Tests 06/12/19 04:30: Sodium Level 144, Potassium Level 5.4H, Chloride Level 109H, Carbon Dioxide Level 28, Anion Gap 7, Blood Urea Nitrogen 25H, Creatinine 0.6, Estimat Glomerular Filtration Rate > 60, Glucose Level 138H, Calcium Level 9.0 Current Medications Medications (Trade) Dose Ordered Sig/Claritza Route PRN Reason Start Time Stop Time Status Last Admin Dose Admin Acetaminophen (Tylenol) 650 mg Q4H PRN GT Mild Pain (Pain Scale 1-3) 06/08/19 13:04 07/08/19 13:03 Acetaminophen (Tylenol) 650 mg Q4H PRN GT T>100.4 06/08/19 13:04 07/08/19 13:03 Amlodipine Besylate (Norvasc) 10 mg DAILY GT 06/09/19 09:00 06/30/19 08:59 06/12/19 09:21 Aspirin (Ecotrin) 81 mg DAILY ORAL 06/10/19 09:00 07/25/19 08:59 06/12/19 09:21 Dextrose (Dextrose 50%) 25 ml Q30M PRN IV Hypoglycemia 06/08/19 13:30 08/28/19 13:29 Dextrose (Dextrose 50%) 50 ml Q30M PRN IV Hypoglycemia 06/08/19 13:30 08/28/19 13:29 Enoxaparin Sodium (Lovenox) 40 mg DAILY SUBQ 06/10/19 09:00 09/08/19 08:59 06/12/19 09:27 Escitalopram Oxalate (Lexapro) 10 mg DAILY GT 06/09/19 09:00 06/30/19 08:59 06/12/19 09:21 Lisinopril (ZestriL) 10 mg DAILY ORAL 06/10/19 09:00 07/10/19 08:59 06/12/19 09:21 Pantoprazole (Protonix) 40 mg DAILY IVP 06/09/19 09:00 06/30/19 10:59 06/12/19 09:22 Pravastatin Sodium (Pravachol) 80 mg BEDTIME GT 06/08/19 21:00 06/29/19 20:59 06/11/19 20:49 Risperidone (RisperDAL) 1 mg BID GT 06/08/19 18:00 07/14/19 17:59 06/12/19 09:21 Valproic Acid (Depakene) 250 mg Q12HR GT 06/08/19 21:00 06/29/19 20:59 06/12/19 09:22 Horace Landaverde MD Jun 12, 2019 10:36
--- NOTE | 2019-06-12 11:09 | General Progress Note ---
Assessment/Plan Problem List: (1) Suspected 2019 novel coronavirus infection ICD Codes: R68.89 - Other general symptoms and signs SNOMED: 131289175 (2) Lower GI bleed ICD Codes: K92.2 - Gastrointestinal hemorrhage, unspecified SNOMED: 17542359 (3) Thrombocytopenia ICD Codes: D69.6 - Thrombocytopenia, unspecified SNOMED: 111509163 (4) Diabetes mellitus ICD Codes: E11.9 - Type 2 diabetes mellitus without complications SNOMED: 59200909 (5) HTN (hypertension) ICD Codes: I10 - Essential (primary) hypertension SNOMED: 04815190 Status: stable Assessment/Plan: s/p colonoscopy in this admission now COVED +!! on Plaquenil per ID labs for am GTF tolerated will fu Subjective ROS Limited/Unobtainable: No Allergies: Coded Allergies: IODINE (Verified Allergy, Unknown, 11/10/17) Objective Last 24 Hour Vital Signs Date Time Temp Pulse Resp B/P (MAP) Pulse Ox O2 Delivery O2 Flow Rate FiO2 06/12/19 09:21 141/76 06/12/19 09:21 80 141/76 06/12/19 08:00 98.7 80 19 141/76 (97) 96 06/12/19 04:00 98.5 88 19 118/60 (79) 98 06/12/19 04:00 72 06/12/19 00:00 98.6 84 20 112/55 (74) 99 06/12/19 00:00 83 06/11/19 21:00 Room Air 06/11/19 20:00 98.4 81 20 108/53 (71) 98 06/11/19 20:00 72 06/11/19 16:00 72 06/11/19 16:00 98.3 67 18 139/60 (86) 98 06/11/19 12:00 99.1 73 20 104/57 (73) 96 06/11/19 12:00 86 Intake and Output 06/11/19 06/12/19 19:00 07:00 Output Total 900 ml Balance -900 ml Output Urine Total 900 ml # Voids 1 Laboratory Tests 06/12/19 04:30: Sodium Level 144, Potassium Level 5.4H, Chloride Level 109H, Carbon Dioxide Level 28, Anion Gap 7, Blood Urea Nitrogen 25H, Creatinine 0.6, Estimat Glomerular Filtration Rate > 60, Glucose Level 138H, Calcium Level 9.0 Height (Feet): 5 Height (Inches): 3.00 Weight (Pounds): 151 General Appearance: no apparent distress EENT: normal ENT inspection Neck: supple Cardiovascular: normal peripheral pulses Respiratory/Chest: decreased breath sounds Abdomen: normal bowel sounds, non tender, soft Extremities: non-tender Thang Doan MD Jun 12, 2019 11:09
[2019-06-12 12:00] VITALS: BP 131/61
--- NOTE | 2019-06-12 12:41 | General Progress Note ---
Assessment/Plan Status: stable Assessment/Plan: 74-year-old female from [facility] w/PMH CVA, dysphasia s/p PEG, dementia, epilepsy, ?DMT2 who presents with bright red blood per rectum, GIB. Patient came facility with multiple COVID positive patients, pt is COVID positive. #Acute blood loss anemia - stable #Acute GIB - stable -continue inpatient level of care -cont. to monitor hgb -Colonoscopy 06/01 without active bleed -Surgery following - no sx at this time -GI following - no further intervention at this time. #COVID19 infection, second PCR positive #Fever - resolved #elevated D-Dimer #Staph bacteremia - suspect contaminant -BCx staph bacteremia, repeat negative, likely contaminant per ID -d-dimer elevated on admission, down trending -d/w Pulm, no need for OAC -ID: s/p hydroxychloroquine, cont. to monitor off abx -repeat COVID positive -pending will need 2 negative tests prior to d/c back to CVP #h/o DMT2 -per chart review pt w/h/o DM -no medications seen in APR from [place] -Hgb A1C 5.9, not in diabetic range #HTN #HLD -ASA -home coreg held 2/2 bradycardia -amlodipine 10 mg -stopped lisinopril due to hyperkalemia -cardio, Dr. Gottlieb. following, recs appreciated #H/o Epilepsy #Seizures #Dementia -no seizure activity reported by ME -cont. valproic acid -cont. home risperdol -Neurology consulted #Dysphagia s/p PEG -TF per nutrition #Hyperkalemia #Hypokalemia - resolved -Stop lisinopril -Kayexalate x 1 today -repeat BMP DVT PPx: lovenox Time spent on encounter: 35 mins, 20 on counseling, coordination of care with consulting MDs, RN, enterprise account manager. Time of note doesn't reflect time of encounter. Subjective Date patient seen: Jun 12, 2019 Time patient seen: 12:39 ROS Limited/Unobtainable: Yes Allergies: Coded Allergies: IODINE (Verified Allergy, Unknown, 11/10/17) Subjective Follow up for acute blood loss anemia COVID19 positivity Potassium remains elevated Objective Last 24 Hour Vital Signs Date Time Temp Pulse Resp B/P (MAP) Pulse Ox O2 Delivery O2 Flow Rate FiO2 06/12/19 09:21 141/76 06/12/19 09:21 80 141/76 06/12/19 09:00 Room Air 06/12/19 08:00 65 06/12/19 08:00 98.7 80 19 141/76 (97) 96 06/12/19 04:00 98.5 88 19 118/60 (79) 98 06/12/19 04:00 72 06/12/19 00:00 98.6 84 20 112/55 (74) 99 06/12/19 00:00 83 06/11/19 21:00 Room Air 06/11/19 20:00 98.4 81 20 108/53 (71) 98 06/11/19 20:00 72 06/11/19 16:00 72 06/11/19 16:00 98.3 67 18 139/60 (86) 98 Intake and Output 06/11/19 06/12/19 19:00 07:00 Output Total 900 ml Balance -900 ml Output Urine Total 900 ml # Voids 1 Laboratory Tests 06/12/19 04:30: Sodium Level 144, Potassium Level 5.4H, Chloride Level 109H, Carbon Dioxide Level 28, Anion Gap 7, Blood Urea Nitrogen 25H, Creatinine 0.6, Estimat Glomerular Filtration Rate > 60, Glucose Level 138H, Calcium Level 9.0 Height (Feet): 5 Height (Inches): 3.00 Weight (Pounds): 151 General Appearance: alert, confused Neck: normal alignment, supple Cardiovascular: normal rate, regular rhythm Respiratory/Chest: lungs clear, normal breath sounds Pierce Baptiste MD Jun 12, 2019 12:41
[2019-06-12] MEDS ORDERED: Sodium Polystyrene Sulfonate 15gm Powder ORAL SCH (12:45)
--- NOTE | 2019-06-12 13:24 | Surgery Progress Note ---
Surgery Progress Note Subjective Additional Comments states she feels well labs okay exam stable no complaints Objective Last 24 Hour Vital Signs Date Time Temp Pulse Resp B/P (MAP) Pulse Ox O2 Delivery O2 Flow Rate FiO2 06/12/19 12:00 97.6 71 18 131/61 (84) 96 06/12/19 12:00 64 06/12/19 09:21 141/76 06/12/19 09:21 80 141/76 06/12/19 09:00 Room Air 06/12/19 08:00 65 06/12/19 08:00 98.7 80 19 141/76 (97) 96 06/12/19 04:00 98.5 88 19 118/60 (79) 98 06/12/19 04:00 72 06/12/19 00:00 98.6 84 20 112/55 (74) 99 06/12/19 00:00 83 06/11/19 21:00 Room Air 06/11/19 20:00 98.4 81 20 108/53 (71) 98 06/11/19 20:00 72 06/11/19 16:00 72 06/11/19 16:00 98.3 67 18 139/60 (86) 98 I&O Intake and Output 06/11/19 06/12/19 19:00 07:00 Output Total 900 ml Balance -900 ml Output Urine Total 900 ml # Voids 1 Dressing: saturated Wound: other Drains: other Cardiovascular: RSR Respiratory: decreased breath sounds Abdomen: soft, non-tender, present bowel sounds Extremities: no tenderness, no cyanosis Laboratory Tests Test 06/12/19 04:30 Sodium Level 144 MMOL/L (136-145) Potassium Level 5.4 MMOL/L (3.5-5.1) H Chloride Level 109 MMOL/L (98-107) H Carbon Dioxide Level 28 MMOL/L (21-32) Anion Gap 7 mmol/L (5-15) Blood Urea Nitrogen 25 mg/dL (7-18) H Creatinine 0.6 MG/DL (0.55-1.30) Estimat Glomerular Filtration Rate > 60 mL/min (>60) Glucose Level 138 MG/DL (74-106) H Calcium Level 9.0 MG/DL (8.5-10.1) Plan Problems: (1) Episode of generalized weakness (2) Encephalopathy (3) Constipation (4) Hypercalcemia (5) Dysphagia (6) Altered level of consciousness (7) Toxic encephalopathy (8) Thrombocytopenia (9) GIB (gastrointestinal bleeding) Assessment & Plan: Upper GI lavage with g tube no blood likely lower gi bleed diverticuli? appreciate GI input s/p scope no acute findings okay for diet trend h/h abd exam benign no acute surgical intervention planned will follow with recs thank you resp support COVID + no gi bleed actively d dimer up elaquis d/c planning (10) Lower GI bleed Assessment & Plan: Findings: There is a gastrostomy tube in place. The bowel gas pattern is unremarkable. No masses or unusual calcifications. There are degenerative changes of the lumbar spine Impression: No acute process (11) Epilepsy (12) Acute febrile illness (13) CVA (cerebral vascular accident) (14) Suspected 2019 novel coronavirus infection (15) Diabetes mellitus (16) HTN (hypertension) Tomi Ordoñez Jun 12, 2019 13:24
--- NOTE | 2019-06-12 13:37 | Infectious Diseases Prog Note ---
"Assessment/Plan Assessment/Plan A 1. COVID19 pneumonia s/p rx with hydroxychloroquine test +: 05/31.20, 06/07.20 & 06/09 2. fever improving 3. GI bleeding 4. diabetes mellitus 5. epilepsy 6. dementia 7. CVA 8. + blood cultures with coag neg staph | diphtheroids likely contaminated P 1. observe off antibiotics 2. will follow up cultures 3. continue isolation Subjective ROS Limited/Unobtainable: Yes Allergies: Coded Allergies: IODINE (Verified Allergy, Unknown, 11/10/17) Objective Vital Signs Last 24 Hour Vital Signs Date Time Temp Pulse Resp B/P (MAP) Pulse Ox O2 Delivery O2 Flow Rate FiO2 06/12/19 12:00 97.6 71 18 131/61 (84) 96 06/12/19 12:00 64 06/12/19 09:21 141/76 06/12/19 09:21 80 141/76 06/12/19 09:00 Room Air 06/12/19 08:00 65 06/12/19 08:00 98.7 80 19 141/76 (97) 96 06/12/19 04:00 98.5 88 19 118/60 (79) 98 06/12/19 04:00 72 06/12/19 00:00 98.6 84 20 112/55 (74) 99 06/12/19 00:00 83 06/11/19 21:00 Room Air 06/11/19 20:00 98.4 81 20 108/53 (71) 98 06/11/19 20:00 72 06/11/19 16:00 72 06/11/19 16:00 98.3 67 18 139/60 (86) 98 Height (Feet): 5 Height (Inches): 3.00 Weight (Pounds): 151 General Appearance: no acute distress HEENT: mucous membranes moist Respiratory/Chest: lungs clear Cardiovascular: normal rate Abdomen: soft, non tender, other - GT feeding Neurologic/Psychiatric: unresponsiveness Microbiology Date/Time Source Procedure Growth Status 06/10/19 12:20 Nasopharynx Coronavirus COVID-19 PCR (HOME) - Final Complete Laboratory Tests Test 06/12/19 04:30 Sodium Level 144 MMOL/L (136-145) Potassium Level 5.4 MMOL/L (3.5-5.1) H Chloride Level 109 MMOL/L (98-107) H Carbon Dioxide Level 28 MMOL/L (21-32) Anion Gap 7 mmol/L (5-15) Blood Urea Nitrogen 25 mg/dL (7-18) H Creatinine 0.6 MG/DL (0.55-1.30) Estimat Glomerular Filtration Rate > 60 mL/min (>60) Glucose Level 138 MG/DL (74-106) H Calcium Level 9.0 MG/DL (8.5-10.1) Current Medications Medications (Trade) Dose Ordered Sig/Clartiza Route PRN Reason Start Time Stop Time Status Last Admin Dose Admin Acetaminophen (Tylenol) 650 mg Q4H PRN GT Mild Pain (Pain Scale 1-3) 06/08/19 13:04 07/08/19 13:03 Acetaminophen (Tylenol) 650 mg Q4H PRN GT T>100.4 06/08/19 13:04 07/08/19 13:03 Amlodipine Besylate (Norvasc) 10 mg DAILY GT 06/09/19 09:00 06/30/19 08:59 06/12/19 09:21 Aspirin (Ecotrin) 81 mg DAILY ORAL 06/10/19 09:00 07/25/19 08:59 06/12/19 09:21 Dextrose (Dextrose 50%) 25 ml Q30M PRN IV Hypoglycemia 06/08/19 13:30 08/28/19 13:29 Dextrose (Dextrose 50%) 50 ml Q30M PRN IV Hypoglycemia 06/08/19 13:30 08/28/19 13:29 Enoxaparin Sodium (Lovenox) 40 mg DAILY SUBQ 06/10/19 09:00 09/08/19 08:59 06/12/19 09:27 Escitalopram Oxalate (Lexapro) 10 mg DAILY GT 06/09/19 09:00 06/30/19 08:59 06/12/19 09:21 Pantoprazole (Protonix) 40 mg DAILY IVP 06/09/19 09:00 06/30/19 10:59 06/12/19 09:22 Pravastatin Sodium (Pravachol) 80 mg BEDTIME GT 06/08/19 21:00 06/29/19 20:59 06/11/19 20:49 Risperidone (RisperDAL) 1 mg BID GT 06/08/19 18:00 07/14/19 17:59 06/12/19 09:21 Sodium Polystyrene Sulfonate (Kayexalate) 30 gm ONCE ORAL 06/12/19 12:45 06/12/19 15:00 06/12/19 13:05 Valproic Acid (Depakene) 250 mg Q12HR GT 06/08/19 21:00 06/29/19 20:59 06/12/19 09:22 Kevon Thurston MD Jun 12, 2019 13:37"
[2019-06-12 16:00] VITALS: BP 116/69
[2019-06-12 20:00] VITALS: BP 119/60
--- NOTE | 2019-06-12 20:20 | Neurology Progress Note ---
Interim History Interim History ROS Limited/Unobtainable: Yes Interim History no seizures Objective Physical Exam Last Vital Signs Date Time Temp Pulse Resp B/P (MAP) Pulse Ox O2 Delivery O2 Flow Rate FiO2 06/12/19 16:00 97.9 76 18 116/69 (85) 97 06/12/19 09:00 Room Air Laboratory Tests Test 06/12/19 04:30 Sodium Level 144 MMOL/L (136-145) Potassium Level 5.4 MMOL/L (3.5-5.1) H Chloride Level 109 MMOL/L (98-107) H Carbon Dioxide Level 28 MMOL/L (21-32) Anion Gap 7 mmol/L (5-15) Blood Urea Nitrogen 25 mg/dL (7-18) H Creatinine 0.6 MG/DL (0.55-1.30) Estimat Glomerular Filtration Rate > 60 mL/min (>60) Glucose Level 138 MG/DL (74-106) H Calcium Level 9.0 MG/DL (8.5-10.1) Neurologic Exam Objective lethargic, withdraws a to pain contracture in all 4. non verbal cc 36 min Impression/Recommendations Problems: (1) Episode of generalized weakness (2) Encephalopathy (3) Constipation (4) Hypercalcemia (5) Dysphagia (6) Altered level of consciousness (7) Toxic encephalopathy (8) Thrombocytopenia (9) GIB (gastrointestinal bleeding) (10) Lower GI bleed (11) Epilepsy (12) Acute febrile illness (13) CVA (cerebral vascular accident) (14) Suspected 2019 novel coronavirus infection (15) Diabetes mellitus (16) HTN (hypertension) Status: stable Diagnostic Impression ICU level of care MAp > 65 neuro checks q2h ATB per primary cont depakote 500 mg bid rule out covid19 del precautions no need for LP holding antiplatelets Larry Juarez MD Jun 12, 2019 20:20
[2019-06-13] VITALS: BP 140/80
[2019-06-13 04:00] VITALS: BP 149/85
[2019-06-13 04:45] LABS: ANION GAP 6 mmol/L (5-15); BLOOD UREA NITROGEN 23 mg/dL (7-18); CALCIUM 8.9 MG/DL (8.5-10.1); CARBON DIOXIDE 30 MMOL/L (21-32); CHLORIDE 108 MMOL/L (98-107); CREATININE 0.7 MG/DL (0.55-1.30); POTASSIUM 4.5 MMOL/L (3.5-5.1); SODIUM 144 MMOL/L (136-145)
[2019-06-13 08:00] VITALS: BP 108/38
--- NOTE | 2019-06-13 08:19 | General Progress Note ---
Assessment/Plan Status: stable Assessment/Plan: 74-year-old female from [facility] w/PMH CVA, dysphasia s/p PEG, dementia, epilepsy, ?DMT2 who presents with bright red blood per rectum, GIB. Patient came facility with multiple COVID positive patients, pt is COVID positive. #Acute blood loss anemia - stable #Acute GIB - stable -continue inpatient level of care -cont. to monitor hgb -Colonoscopy 06/01 without active bleed -Surgery following - no sx at this time -GI following - no further intervention at this time. #COVID19 infection, second PCR positive #Fever - resolved #elevated D-Dimer #Staph bacteremia - suspect contaminant -BCx staph bacteremia, repeat negative, likely contaminant per ID -d-dimer elevated on admission, down trending -d/w Pulm, no need for OAC -ID: s/p hydroxychloroquine, cont. to monitor off abx -repeat 06/07 and 06/09 COVID positive -repeat pending -pending will need 2 negative tests prior to d/c back to SNF/CVP #h/o DMT2 -per chart review pt w/h/o DM -no medications seen in MAR from [place] -Hgb A1C 5.9, not in diabetic range #HTN #HLD -ASA -home coreg held 2/2 bradycardia -amlodipine 10 mg -stopped lisinopril due to hyperkalemia -cardio, Dr. Gottlieb. following, recs appreciated #H/o Epilepsy #Seizures #Dementia -no seizure activity reported by [place] -cont. valproic acid -cont. 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 Time of note doesn't reflect time of encounter. Subjective Allergies: Coded Allergies: IODINE (Verified Allergy, Unknown, 11/10/17) Subjective F/u for acute blood loss anemia, Second COVID-19 PCR positive, s/p abx, pending retest COVID. COVID retest came back +. Pt aphasic, appears comfortable. Objective Last 24 Hour Vital Signs Date Time Temp Pulse Resp B/P (MAP) Pulse Ox O2 Delivery O2 Flow Rate FiO2 06/13/19 04:00 61 06/13/19 04:00 98.1 76 20 149/85 (106) 100 06/13/19 00:08 62 06/13/19 00:00 98.7 80 19 140/80 (100) 100 06/12/19 21:00 Room Air 06/12/19 20:00 98.7 68 18 119/60 (79) 100 06/12/19 19:02 87 06/12/19 16:00 97.9 76 18 116/69 (85) 97 06/12/19 16:00 91 06/12/19 12:00 97.6 71 18 131/61 (84) 96 06/12/19 12:00 64 06/12/19 09:21 141/76 06/12/19 09:21 80 141/76 06/12/19 09:00 Room Air Intake and Output 06/12/19 06/13/19 19:00 07:00 Intake Total 60 ml 915 ml Balance 60 ml 915 ml Intake Free Water 255 ml Tube Feeding 60 ml 660 ml Laboratory Tests 06/13/19 04:00: Sodium Level 144, Potassium Level 4.5, Chloride Level 108H, Carbon Dioxide Level 30, Anion Gap 6, Blood Urea Nitrogen 23H, Creatinine 0.7, Estimat Glomerular Filtration Rate > 60, Glucose Level 125H, Calcium Level 8.9 Height (Feet): 5 Height (Inches): 3.00 Weight (Pounds): 150 Objective General Appearance: NAD, awake, appears comfortable, non-verbal HEENT: NCAT, MMM Cardiovascular: normal rate, regular rhythm Respiratory/Chest: lungs clear, normal breath sounds, no accessory muscle usage Abdomen: non tender, soft, +PEG c/d/i Ext: no edema Tori Hill M.D. Jun 13, 2019 08:19
--- NOTE | 2019-06-13 08:39 | General Progress Note ---
Assessment/Plan Problem List: (1) Suspected 2019 novel coronavirus infection ICD Codes: R68.89 - Other general symptoms and signs SNOMED: 337311594 (2) Lower GI bleed ICD Codes: K92.2 - Gastrointestinal hemorrhage, unspecified SNOMED: 52794590 (3) Thrombocytopenia ICD Codes: D69.6 - Thrombocytopenia, unspecified SNOMED: 934535216 (4) Diabetes mellitus ICD Codes: E11.9 - Type 2 diabetes mellitus without complications SNOMED: 22034224 (5) HTN (hypertension) ICD Codes: I10 - Essential (primary) hypertension SNOMED: 51174112 Status: stable Assessment/Plan: s/p colonoscopy in this admission now COVED +!! on Plaquenil per ID labs for am GTF tolerated will fu Subjective ROS Limited/Unobtainable: No Allergies: Coded Allergies: IODINE (Verified Allergy, Unknown, 11/10/17) Objective Last 24 Hour Vital Signs Date Time Temp Pulse Resp B/P (MAP) Pulse Ox O2 Delivery O2 Flow Rate FiO2 06/13/19 08:00 98.6 87 20 108/38 (61) 96 06/13/19 04:00 61 06/13/19 04:00 98.1 76 20 149/85 (106) 100 06/13/19 00:08 62 06/13/19 00:00 98.7 80 19 140/80 (100) 100 06/12/19 21:00 Room Air 06/12/19 20:00 98.7 68 18 119/60 (79) 100 06/12/19 19:02 87 06/12/19 16:00 97.9 76 18 116/69 (85) 97 06/12/19 16:00 91 06/12/19 12:00 97.6 71 18 131/61 (84) 96 06/12/19 12:00 64 06/12/19 09:21 141/76 06/12/19 09:21 80 141/76 06/12/19 09:00 Room Air Intake and Output 06/12/19 06/13/19 19:00 07:00 Intake Total 60 ml 915 ml Balance 60 ml 915 ml Intake Free Water 255 ml Tube Feeding 60 ml 660 ml Laboratory Tests 06/13/19 04:00: Sodium Level 144, Potassium Level 4.5, Chloride Level 108H, Carbon Dioxide Level 30, Anion Gap 6, Blood Urea Nitrogen 23H, Creatinine 0.7, Estimat Glomerular Filtration Rate > 60, Glucose Level 125H, Calcium Level 8.9 Height (Feet): 5 Height (Inches): 3.00 Weight (Pounds): 150 General Appearance: no apparent distress EENT: normal ENT inspection Neck: supple Cardiovascular: normal rate Respiratory/Chest: decreased breath sounds Abdomen: normal bowel sounds, non tender, soft Extremities: non-tender Thang Doan MD Jun 13, 2019 08:39
--- NOTE | 2019-06-13 09:25 | Surgery Progress Note ---
Surgery Progress Note Subjective Additional Comments afebrile, HD stable labs okay micro with still + covid as of no bleeding Objective Last 24 Hour Vital Signs Date Time Temp Pulse Resp B/P (MAP) Pulse Ox O2 Delivery O2 Flow Rate FiO2 06/13/19 08:00 98.6 87 20 108/38 (61) 96 06/13/19 04:00 61 06/13/19 04:00 98.1 76 20 149/85 (106) 100 06/13/19 00:08 62 06/13/19 00:00 98.7 80 19 140/80 (100) 100 06/12/19 21:00 Room Air 06/12/19 20:00 98.7 68 18 119/60 (79) 100 06/12/19 19:02 87 06/12/19 16:00 97.9 76 18 116/69 (85) 97 06/12/19 16:00 91 06/12/19 12:00 97.6 71 18 131/61 (84) 96 06/12/19 12:00 64 I&O Intake and Output 06/12/19 06/13/19 18:59 06:59 Intake Total 975 ml Balance 975 ml Intake Free Water 255 ml Tube Feeding 720 ml Cardiovascular: RSR Respiratory: decreased breath sounds Abdomen: soft, non-tender, present bowel sounds Extremities: no cyanosis Laboratory Tests Test 06/13/19 04:00 Sodium Level 144 MMOL/L (136-145) Potassium Level 4.5 MMOL/L (3.5-5.1) Chloride Level 108 MMOL/L (98-107) H Carbon Dioxide Level 30 MMOL/L (21-32) Anion Gap 6 mmol/L (5-15) Blood Urea Nitrogen 23 mg/dL (7-18) H Creatinine 0.7 MG/DL (0.55-1.30) Estimat Glomerular Filtration Rate > 60 mL/min (>60) Glucose Level 125 MG/DL (74-106) H Calcium Level 8.9 MG/DL (8.5-10.1) Plan Problems: (1) Episode of generalized weakness (2) Encephalopathy (3) Constipation (4) Hypercalcemia (5) Dysphagia (6) Altered level of consciousness (7) Toxic encephalopathy (8) Thrombocytopenia (9) GIB (gastrointestinal bleeding) Assessment & Plan: Upper GI lavage with g tube no blood likely lower gi bleed diverticuli? appreciate GI input s/p scope no acute findings okay for diet trend h/h abd exam benign no acute surgical intervention planned will follow with recs thank you resp support COVID + no gi bleed actively d dimer up elaquis d/c planning continues to remain + as of 06/09 (10) Lower GI bleed Assessment & Plan: Findings: There is a gastrostomy tube in place. The bowel gas pattern is unremarkable. No masses or unusual calcifications. There are degenerative changes of the lumbar spine Impression: No acute process (11) Epilepsy (12) Acute febrile illness (13) CVA (cerebral vascular accident) (14) Suspected 2019 novel coronavirus infection (15) Diabetes mellitus (16) HTN (hypertension) Tomi Ordoñez Jun 13, 2019 09:25
[2019-06-13] MEDS: Pantoprazole Inj IVP SCH (09:47)
[2019-06-13] MEDS: Valproic Acid 250mg/5ml Liquid GT SCH ×2 (09:47→21:43)
[2019-06-13] MEDS: Aspirin EC 81mg tab ORAL SCH (09:47)
[2019-06-13] MEDS: Enoxaparin 40mg Inj SUBQ SCH (09:50)
--- NOTE | 2019-06-13 10:33 | Pulmonology Progress Note ---
Assessment/Plan Assessment/Plan IMPRESSION: 1. Rectal bleeding. 2. COVID 19 positive 3. CVA. 4. long term resident. DISCUSSION: COVID 19 positive I will follow as [facility] surgeon. Abx per ID CXR clear Continue oxygen prn and pulmonary hygiene. Currently on RA Subjective Interval Events: None new Constitutional: Reports: no symptoms HEENT: Repors: no symptoms Respiratory: Reports: no symptoms Cardiovascular: Reports: no symptoms Gastrointestinal/Abdominal: Reports: no symptoms Genitourinary: Reports: no symptoms Allergies: Coded Allergies: IODINE (Verified Allergy, Unknown, 11/10/17) Objective Last 24 Hour Vital Signs Date Time Temp Pulse Resp B/P (MAP) Pulse Ox O2 Delivery O2 Flow Rate FiO2 06/13/19 09:00 87 108/38 06/13/19 08:00 98.6 87 20 108/38 (61) 96 06/13/19 04:00 61 06/13/19 04:00 98.1 76 20 149/85 (106) 100 06/13/19 00:08 62 06/13/19 00:00 98.7 80 19 140/80 (100) 100 06/12/19 21:00 Room Air 06/12/19 20:00 98.7 68 18 119/60 (79) 100 06/12/19 19:02 87 06/12/19 16:00 97.9 76 18 116/69 (85) 97 06/12/19 16:00 91 06/12/19 12:00 97.6 71 18 131/61 (84) 96 06/12/19 12:00 64 Intake and Output 06/12/19 06/13/19 18:59 06:59 Intake Total 975 ml Balance 975 ml Intake Free Water 255 ml Tube Feeding 720 ml General Appearance: no acute distress HEENT: normocephalic Respiratory/Chest: chest wall non-tender Cardiovascular: normal peripheral pulses Abdomen: normal bowel sounds Microbiology Date/Time Source Procedure Growth Status 06/10/19 12:20 Nasopharynx Coronavirus COVID-19 PCR (HOME) - Final Complete Laboratory Tests 06/13/19 04:00: Sodium Level 144, Potassium Level 4.5, Chloride Level 108H, Carbon Dioxide Level 30, Anion Gap 6, Blood Urea Nitrogen 23H, Creatinine 0.7, Estimat Glomerular Filtration Rate > 60, Glucose Level 125H, Calcium Level 8.9 Current Medications Medications (Trade) Dose Ordered Sig/Claritza Route PRN Reason Start Time Stop Time Status Last Admin Dose Admin Acetaminophen (Tylenol) 650 mg Q4H PRN GT Mild Pain (Pain Scale 1-3) 06/08/19 13:04 07/08/19 13:03 Acetaminophen (Tylenol) 650 mg Q4H PRN GT T>100.4 06/08/19 13:04 07/08/19 13:03 Amlodipine Besylate (Norvasc) 10 mg DAILY GT 06/09/19 09:00 06/30/19 08:59 06/12/19 09:21 Aspirin (Ecotrin) 81 mg DAILY ORAL 06/10/19 09:00 07/25/19 08:59 06/13/19 09:47 Dextrose (Dextrose 50%) 25 ml Q30M PRN IV Hypoglycemia 06/08/19 13:30 08/28/19 13:29 Dextrose (Dextrose 50%) 50 ml Q30M PRN IV Hypoglycemia 06/08/19 13:30 08/28/19 13:29 Enoxaparin Sodium (Lovenox) 40 mg DAILY SUBQ 06/10/19 09:00 09/08/19 08:59 06/13/19 09:50 Escitalopram Oxalate (Lexapro) 10 mg DAILY GT 06/09/19 09:00 06/30/19 08:59 06/13/19 09:47 Pantoprazole (Protonix) 40 mg DAILY IVP 06/09/19 09:00 06/30/19 10:59 06/13/19 09:47 Pravastatin Sodium (Pravachol) 80 mg BEDTIME GT 06/08/19 21:00 06/29/19 20:59 06/12/19 21:39 Risperidone (RisperDAL) 1 mg BID GT 06/08/19 18:00 07/14/19 17:59 06/13/19 09:48 Valproic Acid (Depakene) 250 mg Q12HR GT 06/08/19 21:00 06/29/19 20:59 06/13/19 09:47 Horace Landaverde MD Jun 13, 2019 10:32
--- NOTE | 2019-06-13 10:47 | Infectious Diseases Prog Note ---
"Assessment/Plan Assessment/Plan antibiotics : none A 1. COVID 19 pneumonia s/p rx with hydroxychloroquine test + 4.8.20, 4.15.20 2. fever improving 3. GI bleeding 4. diabetes mellitus 5. epilepsy 6. dementia 7. CVA 8. + blood cultures with coag neg staph | diphtheroids likely contaminated P 1. observe off antibiotics 2. will follow up cultures 3. continue isolation Subjective ROS Limited/Unobtainable: Yes Allergies: Coded Allergies: IODINE (Verified Allergy, Unknown, 11/10/17) Objective Vital Signs Last 24 Hour Vital Signs Date Time Temp Pulse Resp B/P (MAP) Pulse Ox O2 Delivery O2 Flow Rate FiO2 06/13/19 09:00 87 108/38 06/13/19 08:00 98.6 87 20 108/38 (61) 96 06/13/19 04:00 61 06/13/19 04:00 98.1 76 20 149/85 (106) 100 06/13/19 00:08 62 06/13/19 00:00 98.7 80 19 140/80 (100) 100 06/12/19 21:00 Room Air 06/12/19 20:00 98.7 68 18 119/60 (79) 100 06/12/19 19:02 87 06/12/19 16:00 97.9 76 18 116/69 (85) 97 06/12/19 16:00 91 06/12/19 12:00 97.6 71 18 131/61 (84) 96 06/12/19 12:00 64 Height (Feet): 5 Height (Inches): 3.00 Weight (Pounds): 150 Microbiology Date/Time Source Procedure Growth Status 06/10/19 12:20 Nasopharynx Coronavirus COVID-19 PCR (HOME) - Final Complete Laboratory Tests Test 06/13/19 04:00 Sodium Level 144 MMOL/L (136-145) Potassium Level 4.5 MMOL/L (3.5-5.1) Chloride Level 108 MMOL/L (98-107) H Carbon Dioxide Level 30 MMOL/L (21-32) Anion Gap 6 mmol/L (5-15) Blood Urea Nitrogen 23 mg/dL (7-18) H Creatinine 0.7 MG/DL (0.55-1.30) Estimat Glomerular Filtration Rate > 60 mL/min (>60) Glucose Level 125 MG/DL (74-106) H Calcium Level 8.9 MG/DL (8.5-10.1) Current Medications Medications (Trade) Dose Ordered Sig/Claritza Route PRN Reason Start Time Stop Time Status Last Admin Dose Admin Acetaminophen (Tylenol) 650 mg Q4H PRN GT Mild Pain (Pain Scale 1-3) 06/08/19 13:04 07/08/19 13:03 Acetaminophen (Tylenol) 650 mg Q4H PRN GT T>100.4 06/08/19 13:04 07/08/19 13:03 Amlodipine Besylate (Norvasc) 10 mg DAILY GT 06/09/19 09:00 06/30/19 08:59 06/12/19 09:21 Aspirin (Ecotrin) 81 mg DAILY ORAL 06/10/19 09:00 07/25/19 08:59 06/13/19 09:47 Dextrose (Dextrose 50%) 25 ml Q30M PRN IV Hypoglycemia 06/08/19 13:30 08/28/19 13:29 Dextrose (Dextrose 50%) 50 ml Q30M PRN IV Hypoglycemia 06/08/19 13:30 08/28/19 13:29 Enoxaparin Sodium (Lovenox) 40 mg DAILY SUBQ 06/10/19 09:00 09/08/19 08:59 06/13/19 09:50 Escitalopram Oxalate (Lexapro) 10 mg DAILY GT 06/09/19 09:00 06/30/19 08:59 06/13/19 09:47 Pantoprazole (Protonix) 40 mg DAILY IVP 06/09/19 09:00 06/30/19 10:59 06/13/19 09:47 Pravastatin Sodium (Pravachol) 80 mg BEDTIME GT 06/08/19 21:00 06/29/19 20:59 06/12/19 21:39 Risperidone (RisperDAL) 1 mg BID GT 06/08/19 18:00 07/14/19 17:59 06/13/19 09:48 Valproic Acid (Depakene) 250 mg Q12HR GT 06/08/19 21:00 06/29/19 20:59 06/13/19 09:47 Radha Dunham MD Jun 13, 2019 10:47"
[2019-06-13] MEDS: NovoLOG Insulin Flexpen SUBQ SCH ×3 (11:30→21:00)
[2019-06-13 12:00] VITALS: BP 118/50
--- NOTE | 2019-06-13 14:02 | Hematology/Onc Progress Note ---
Assessment/Plan Assessment/Plan Assessment and Recs: # Pancytopenia with Acute blood loss anemia, currently has been progressing is due to COVID19 --> likely related to underlying infection, covid rule out at this time --> hepatitis and hiv are BOTH NEG --> us of the abdomen is pending, r/o hsm and cirrhosisnone noted and gtube in place noted --> smear of the periphery is pending->reviewed no schistocytes seen --> abx as per id, started --> pressors prn --> 06/01 for colo by Olimpia showed 3 polyps/diverticulitis --> repeat colo in 3 months # Acute GIB, with decrease in h/h --> no evidence of hemolysis is noted --> transfuse as needed, hgb goal >7 --> IVF hgb trend 10.4-->11.5-->10.5-->11-->10.7 --> Protonix given in ED --> GI consulted, Dr Doan: GT lavage neg, transfuse plts, prep for possible colonoscopy, also per surg # Fever likely due to covid 19++ --> currently is on iso --> COVID 19++ --> KUB negative --> CXR ?right lung infiltrate --> per pulm --> monitor off abx # DMT2 --> accuchecks qac and qhs --> iss prn # HTN --> sbp goal is less than 140 --> as per cards # HLD --> holding ASA given acute GIB # H/o Epilepsy # Seizures # Dementia # Dysphagia s/p PEG --> on tfs # DVT PPx: SCDs given acute GIB Appreciate consultation and jose Rn Subjective HEENT: Denies: no symptoms, eye pain, blurred vision, tearing, double vision, ear pain, ear discharge, nose pain, nose congestion, throat pain, throat swelling, mouth pain, mouth swelling, other Cardiovascular: Denies: no symptoms, chest pain, edema, irregular heart rate, lightheadedness, palpitations, syncope, other Respiratory: Denies: no symptoms, cough, shortness of breath, SOB with excertion, SOB at rest, sputum, wheezing, other Gastrointestinal/Abdominal: Denies: no symptoms, abdomen distended, abdominal pain, black stools, tarry stools, blood in stool, constipated, diarrhea, difficulty swallowing, nausea, poor appetite, poor fluid intake, rectal bleeding , vomiting, other Genitourinary: Denies: no symptoms, burning, discharge, frequency, flank pain, hematuria, incontinence, pain, urgency, other Neurologic/Psychiatric: Denies: no symptoms, anxiety, depressed, emotional problems, headache, numbness, paresthesia, pre-existing deficit, seizure, tingling, tremors, weakness, other Endocrine: Denies: no symptoms, excessive sweating, flushing, intolerance to cold, intolerance to heat, increased hunger, increased thirst, increased urine, unexplained weight gain, unexplained weight loss, other Hematologic/Lymphatic: Denies: no symptoms, anemia, easy bleeding, easy bruising, adenopathy, other Allergies: Coded Allergies: IODINE (Verified Allergy, Unknown, 11/10/17) Subjective 05/31 is for colo tomorrow, labs reviewed, hgb stable 06/01 as per gi eval, for scope, no night sweats, dw rn 06/02 no major changes, labs reviewed, no bleeding, colo done yesterday, 3 polyps noted 06/05 asleep, no bleeding or chills, labs have been noted, no night swearts, hgb 10.5 06/06 no major changes, no bleeding, labs reviewed, no night sweats 06/07 no events, no bleeding or night sweats, labs noted, now with COVID++ 06/08 labs noted, hgb is stable, dw gi, no bleeding at this time 06/09 on tele, off abx, labs reviewed, on room air 06/11 no overnight events, afebrile, no sob, 06/12 is breathing well on room air, no night sweats Objective Objective Current Medications Medications (Trade) Dose Ordered Sig/Lcaritza Route PRN Reason Start Time Stop Time Status Last Admin Dose Admin Acetaminophen (Tylenol) 650 mg Q4H PRN GT Mild Pain (Pain Scale 1-3) 06/08/19 13:04 07/08/19 13:03 Acetaminophen (Tylenol) 650 mg Q4H PRN GT T>100.4 06/08/19 13:04 07/08/19 13:03 Amlodipine Besylate (Norvasc) 10 mg DAILY GT 06/09/19 09:00 06/30/19 08:59 06/12/19 09:21 Aspirin (Ecotrin) 81 mg DAILY ORAL 06/10/19 09:00 07/25/19 08:59 06/13/19 09:47 Dextrose (Dextrose 50%) 25 ml Q30M PRN IV Hypoglycemia 06/08/19 13:30 08/28/19 13:29 Dextrose (Dextrose 50%) 50 ml Q30M PRN IV Hypoglycemia 06/08/19 13:30 08/28/19 13:29 Enoxaparin Sodium (Lovenox) 40 mg DAILY SUBQ 06/10/19 09:00 09/08/19 08:59 06/13/19 09:50 Escitalopram Oxalate (Lexapro) 10 mg DAILY GT 06/09/19 09:00 06/30/19 08:59 06/13/19 09:47 Insulin Aspart (NovoLOG) BEFORE MEALS AND HS SUBQ 06/13/19 11:30 09/11/19 11:29 Pantoprazole (Protonix) 40 mg DAILY IVP 06/09/19 09:00 06/30/19 10:59 06/13/19 09:47 Pravastatin Sodium (Pravachol) 80 mg BEDTIME GT 06/08/19 21:00 06/29/19 20:59 06/12/19 21:39 Risperidone (RisperDAL) 1 mg BID GT 06/08/19 18:00 07/14/19 17:59 06/13/19 09:48 Valproic Acid (Depakene) 250 mg Q12HR GT 06/08/19 21:00 06/29/19 20:59 06/13/19 09:47 Last 24 Hour Vital Signs Date Time Temp Pulse Resp B/P (MAP) Pulse Ox O2 Delivery O2 Flow Rate FiO2 06/13/19 09:00 Room Air 06/13/19 09:00 87 108/38 06/13/19 08:00 80 06/13/19 08:00 98.6 87 20 108/38 (61) 96 06/13/19 04:00 61 06/13/19 04:00 98.1 76 20 149/85 (106) 100 06/13/19 00:08 62 06/13/19 00:00 98.7 80 19 140/80 (100) 100 06/12/19 21:00 Room Air 06/12/19 20:00 98.7 68 18 119/60 (79) 100 06/12/19 19:02 87 06/12/19 16:00 97.9 76 18 116/69 (85) 97 06/12/19 16:00 91 06/12/19 12:00 97.6 71 18 131/61 (84) 96 06/12/19 12:00 64 06/12/19 09:21 141/76 06/12/19 09:21 80 141/76 06/12/19 09:00 Room Air 06/12/19 08:00 65 06/12/19 08:00 98.7 80 19 141/76 (97) 96 06/12/19 04:00 98.5 88 19 118/60 (79) 98 06/12/19 04:00 72 06/12/19 00:00 98.6 84 20 112/55 (74) 99 06/12/19 00:00 83 06/11/19 21:00 Room Air 06/11/19 20:00 98.4 81 20 108/53 (71) 98 06/11/19 20:00 72 06/11/19 16:00 72 06/11/19 16:00 98.3 67 18 139/60 (86) 98 Intake and Output 06/12/19 06/13/19 19:00 07:00 Intake Total 60 ml 915 ml Balance 60 ml 915 ml Intake Free Water 255 ml Tube Feeding 60 ml 660 ml Labs Test 06/11/19 07:10 06/12/19 04:30 06/13/19 04:00 White Blood Count 10.6 K/UL (4.8-10.8) Red Blood Count 3.64 M/UL (4.20-5.40) Hemoglobin 10.7 G/DL (12.0-16.0) Hematocrit 32.3 % (37.0-47.0) Mean Corpuscular Volume 89 FL (80-99) Mean Corpuscular Hemoglobin 29.5 PG (27.0-31.0) Mean Corpuscular Hemoglobin Concent 33.1 G/DL (32.0-36.0) Red Cell Distribution Width 15.2 % (11.6-14.8) Platelet Count 266 K/UL (150-450) Mean Platelet Volume 7.0 FL (6.5-10.1) Neutrophils (%) (Auto) 75.1 % (45.0-75.0) Lymphocytes (%) (Auto) 14.4 % (20.0-45.0) Monocytes (%) (Auto) 8.7 % (1.0-10.0) Eosinophils (%) (Auto) 1.1 % (0.0-3.0) Basophils (%) (Auto) 0.8 % (0.0-2.0) Sodium Level 141 MMOL/L (136-145) 144 MMOL/L (136-145) 144 MMOL/L (136-145) Potassium Level 5.3 MMOL/L (3.5-5.1) 5.4 MMOL/L (3.5-5.1) 4.5 MMOL/L (3.5-5.1) Chloride Level 107 MMOL/L (98-107) 109 MMOL/L (98-107) 108 MMOL/L (98-107) Carbon Dioxide Level 29 MMOL/L (21-32) 28 MMOL/L (21-32) 30 MMOL/L (21-32) Anion Gap 6 mmol/L (5-15) 7 mmol/L (5-15) 6 mmol/L (5-15) Blood Urea Nitrogen 28 mg/dL (7-18) 25 mg/dL (7-18) 23 mg/dL (7-18) Creatinine 0.7 MG/DL (0.55-1.30) 0.6 MG/DL (0.55-1.30) 0.7 MG/DL (0.55-1.30) Estimat Glomerular Filtration Rate > 60 mL/min (>60) > 60 mL/min (>60) > 60 mL/min (>60) Glucose Level 130 MG/DL (74-106) 138 MG/DL (74-106) 125 MG/DL (74-106) Calcium Level 9.5 MG/DL (8.5-10.1) 9.0 MG/DL (8.5-10.1) 8.9 MG/DL (8.5-10.1) Height (Feet): 5 Height (Inches): 3.00 Weight (Pounds): 150 Objective Physical Exam Physical Exam Narrative General: NAD, A&O x 1, awake, alert, noncommunicative HEENT: NCAT, EOMi, dry mucous membranes CV: RRR, no murmurs, rubs, or gallops Pulm: CTAB, No wheezes, rhonchi, or rales, no accessory muscle usage or conversational dyspnea GI: Soft, nontender, nondistended, bowel sounds present, +PEG c/d/i Neuro: Limited due to patient communication/participation Ext: No lower extremity edema bilaterally Skin: no rashes lesions or ulcers Timothy Wong MD Jun 13, 2019 14:02
--- NOTE | 2019-06-13 14:58 | Cardiac Electrophysiology PN ---
Assessment/Plan Assessment/Plan 1. Bradycardia. Resolved off Coreg. Echo still pending as COVID still positive 2. Hypertension, on amlodipine 10 daily and Lisinopril 10 daily 3. Hyperlipidemia, on Pravachol 4. Rectal bleeding. S/P Colonoscopy by Dr. Doan that showed diverticulitis 5. History of CVA. 6. S/P PEG 7. COVID PNA, positive on 06/01/19 completed Plaquenil. QTc 455 Awaiting another Covid test pre DC DW RN Subjective Subjective In SR in isolation as COVID was positive. Comfortable in NAD in SR. Re- swabbed for Covid awaiting results Objective Last 24 Hour Vital Signs Date Time Temp Pulse Resp B/P (MAP) Pulse Ox O2 Delivery O2 Flow Rate FiO2 06/13/19 09:00 Room Air 06/13/19 09:00 87 108/38 06/13/19 08:00 80 06/13/19 08:00 98.6 87 20 108/38 (61) 96 06/13/19 04:00 61 06/13/19 04:00 98.1 76 20 149/85 (106) 100 06/13/19 00:08 62 06/13/19 00:00 98.7 80 19 140/80 (100) 100 06/12/19 21:00 Room Air 06/12/19 20:00 98.7 68 18 119/60 (79) 100 06/12/19 19:02 87 06/12/19 16:00 97.9 76 18 116/69 (85) 97 06/12/19 16:00 91 Intake and Output 06/12/19 06/13/19 19:00 07:00 Intake Total 60 ml 915 ml Balance 60 ml 915 ml Intake Free Water 255 ml Tube Feeding 60 ml 660 ml Laboratory Tests Test 06/13/19 04:00 Sodium Level 144 MMOL/L (136-145) Potassium Level 4.5 MMOL/L (3.5-5.1) Chloride Level 108 MMOL/L (98-107) H Carbon Dioxide Level 30 MMOL/L (21-32) Anion Gap 6 mmol/L (5-15) Blood Urea Nitrogen 23 mg/dL (7-18) H Creatinine 0.7 MG/DL (0.55-1.30) Estimat Glomerular Filtration Rate > 60 mL/min (>60) Glucose Level 125 MG/DL (74-106) H Calcium Level 8.9 MG/DL (8.5-10.1) Objective HEAD AND NECK: No JVD, LUNGS: Coarse rhonchi. CARDIOVASCULAR: Regular S1 and S2. Bradycardic. ABDOMEN: Soft and status post G-tube. EXTREMITIES: No pitting edema. Telly Gottlieb MD Jun 13, 2019 14:58
[2019-06-13 16:00] VITALS: BP 113/69
[2019-06-13 20:00] VITALS: BP 118/64
--- NOTE | 2019-06-13 20:59 | Neurology Progress Note ---
Interim History Interim History ROS Limited/Unobtainable: Yes Interim History remains non verbal Objective Physical Exam Last Vital Signs Date Time Temp Pulse Resp B/P (MAP) Pulse Ox O2 Delivery O2 Flow Rate FiO2 06/13/19 16:00 74 06/13/19 16:00 98.5 20 113/69 (84) 99 06/13/19 09:00 Room Air Laboratory Tests Test 06/13/19 04:00 Sodium Level 144 MMOL/L (136-145) Potassium Level 4.5 MMOL/L (3.5-5.1) Chloride Level 108 MMOL/L (98-107) H Carbon Dioxide Level 30 MMOL/L (21-32) Anion Gap 6 mmol/L (5-15) Blood Urea Nitrogen 23 mg/dL (7-18) H Creatinine 0.7 MG/DL (0.55-1.30) Estimat Glomerular Filtration Rate > 60 mL/min (>60) Glucose Level 125 MG/DL (74-106) H Calcium Level 8.9 MG/DL (8.5-10.1) Neurologic Exam Objective lethargic, withdraws a to pain contracture in all 4. non verbal cc 36 min Impression/Recommendations Problems: (1) Episode of generalized weakness (2) Encephalopathy (3) Constipation (4) Hypercalcemia (5) Dysphagia (6) Altered level of consciousness (7) Toxic encephalopathy (8) Thrombocytopenia (9) GIB (gastrointestinal bleeding) (10) Lower GI bleed (11) Epilepsy (12) Acute febrile illness (13) CVA (cerebral vascular accident) (14) Suspected 2019 novel coronavirus infection (15) Diabetes mellitus (16) HTN (hypertension) Status: stable Diagnostic Impression ICU level of care MAp > 65 neuro checks q2h ATB per primary cont depakote 500 mg bid rule out covid19 del precautions no need for LP holding antiplatelets Larry Juarez MD Jun 13, 2019 20:59
[2019-06-14] VITALS: BP 110/69
[2019-06-14 04:00] VITALS: BP 109/72
[2019-06-14 05:32] LABS: BASOPHILS % (AUTO) 1.2 % (0.0-2.0); EOSINOPHILS % (AUTO) 1.7 % (0.0-3.0); HEMATOCRIT 30.6 % (37.0-47.0); LYMPHOCYTES % (AUTO) 27.4 % (20.0-45.0); MEAN CORPUSCULAR VOLUME 89 FL (80-99); MONOCYTES % (AUTO) 11.1 % (1.0-10.0); NEUTROPHILS % (AUTO) 58.6 % (45.0-75.0); PLATELET COUNT 271 K/UL (150-450); RED BLOOD COUNT 3.45 M/UL (4.20-5.40); RED CELL DISTRIBUTION WIDTH 15.1 % (11.6-14.8); WHITE BLOOD COUNT 5.7 K/UL (4.8-10.8)
[2019-06-14 05:43] LABS: ANION GAP 7 mmol/L (5-15); BLOOD UREA NITROGEN 18 mg/dL (7-18); CALCIUM 9.2 MG/DL (8.5-10.1); CARBON DIOXIDE 29 MMOL/L (21-32); CHLORIDE 108 MMOL/L (98-107); CREATININE 0.7 MG/DL (0.55-1.30); POTASSIUM 4.5 MMOL/L (3.5-5.1); SODIUM 144 MMOL/L (136-145)
[2019-06-14] MEDS: NovoLOG Insulin Flexpen SUBQ SCH ×3 (06:00→18:00)
--- NOTE | 2019-06-14 06:04 | Hematology/Onc Progress Note ---
Assessment/Plan Assessment/Plan Assessment and Recs: # Pancytopenia with Acute blood loss anemia, currently has been progressing is due to COVID19 --> likely related to underlying infection, covid rule out at this time --> hepatitis and hiv are BOTH NEG --> us of the abdomen is pending, r/o hsm and cirrhosisnone noted and gtube in place noted --> smear of the periphery is pending->reviewed no schistocytes seen --> abx as per id, started --> pressors prn, now off --> 06/01 for colo by Olimpia showed 3 polyps/diverticulitis --> repeat colo in 3 months # Acute GIB, with decrease in h/h --> no evidence of hemolysis is noted --> transfuse as needed, hgb goal >7 --> IVF hgb trend 10.4-->11.5-->10.5-->11-->10.7-->10 --> Protonix given in ED --> GI consulted, Dr Doan: GT lavage neg, transfuse plts, prep for possible colonoscopy, also per surg # Fever likely due to covid 19++ --> currently is on iso --> COVID 19++ --> KUB negative --> CXR ?right lung infiltrate --> per pulm --> monitor off abx # DMT2 --> accuchecks qac and qhs --> iss prn # HTN --> sbp goal is less than 140 --> as per cards # HLD --> holding ASA given acute GIB # H/o Epilepsy # Seizures # Dementia # Dysphagia s/p PEG --> on tfs # DVT PPx: SCDs given acute GIB Appreciate consultation and dw Rn Subjective Constitutional: Denies: no symptoms, chills, fever, malaise, weakness, other HEENT: Denies: no symptoms, eye pain, blurred vision, tearing, double vision, ear pain, ear discharge, nose pain, nose congestion, throat pain, throat swelling, mouth pain, mouth swelling, other Cardiovascular: Denies: no symptoms, chest pain, edema, irregular heart rate, lightheadedness, palpitations, syncope, other Respiratory: Denies: no symptoms, cough, shortness of breath, SOB with excertion, SOB at rest, sputum, wheezing, other Gastrointestinal/Abdominal: Denies: no symptoms, abdomen distended, abdominal pain, black stools, tarry stools, blood in stool, constipated, diarrhea, difficulty swallowing, nausea, poor appetite, poor fluid intake, rectal bleeding , vomiting, other Genitourinary: Denies: no symptoms, burning, discharge, frequency, flank pain, hematuria, incontinence, pain, urgency, other Neurologic/Psychiatric: Denies: no symptoms, anxiety, depressed, emotional problems, headache, numbness, paresthesia, pre-existing deficit, seizure, tingling, tremors, weakness, other Allergies: Coded Allergies: IODINE (Verified Allergy, Unknown, 11/10/17) Subjective 05/31 is for colo tomorrow, labs reviewed, hgb stable 06/01 as per gi eval, for scope, no night sweats, dw rn 06/02 no major changes, labs reviewed, no bleeding, colo done yesterday, 3 polyps noted 06/05 asleep, no bleeding or chills, labs have been noted, no night swearts, hgb 10.5 06/06 no major changes, no bleeding, labs reviewed, no night sweats 06/07 no events, no bleeding or night sweats, labs noted, now with COVID++ 06/08 labs noted, hgb is stable, dw gi, no bleeding at this time 06/09 on tele, off abx, labs reviewed, on room air 06/11 no overnight events, afebrile, no sob, 06/12 is breathing well on room air, no night sweats 06/13 no major events, labs reviewed, hgb approx 10, on tube feeds Objective Objective Current Medications Medications (Trade) Dose Ordered Sig/Claritza Route PRN Reason Start Time Stop Time Status Last Admin Dose Admin Acetaminophen (Tylenol) 650 mg Q4H PRN GT Mild Pain (Pain Scale 1-3) 06/08/19 13:04 07/08/19 13:03 Acetaminophen (Tylenol) 650 mg Q4H PRN GT T>100.4 06/08/19 13:04 07/08/19 13:03 Amlodipine Besylate (Norvasc) 10 mg DAILY GT 06/09/19 09:00 06/30/19 08:59 06/12/19 09:21 Aspirin (Ecotrin) 81 mg DAILY ORAL 06/10/19 09:00 07/25/19 08:59 06/13/19 09:47 Dextrose (Dextrose 50%) 25 ml Q30M PRN IV Hypoglycemia 06/08/19 13:30 08/28/19 13:29 Dextrose (Dextrose 50%) 50 ml Q30M PRN IV Hypoglycemia 06/08/19 13:30 08/28/19 13:29 Enoxaparin Sodium (Lovenox) 40 mg DAILY SUBQ 06/10/19 09:00 09/08/19 08:59 06/13/19 09:50 Escitalopram Oxalate (Lexapro) 10 mg DAILY GT 06/09/19 09:00 06/30/19 08:59 06/13/19 09:47 Insulin Aspart (NovoLOG) Q6HR SUBQ 06/14/19 06:00 09/12/19 05:59 Pantoprazole (Protonix) 40 mg DAILY IVP 06/09/19 09:00 06/30/19 10:59 06/13/19 09:47 Pravastatin Sodium (Pravachol) 80 mg BEDTIME GT 06/08/19 21:00 06/29/19 20:59 06/13/19 21:43 Risperidone (RisperDAL) 1 mg BID GT 06/08/19 18:00 07/14/19 17:59 06/13/19 17:46 Valproic Acid (Depakene) 250 mg Q12HR GT 06/08/19 21:00 06/29/19 20:59 06/13/19 21:43 Last 24 Hour Vital Signs Date Time Temp Pulse Resp B/P (MAP) Pulse Ox O2 Delivery O2 Flow Rate FiO2 06/14/19 04:00 66 06/14/19 04:00 98.0 61 18 109/72 (84) 97 06/14/19 00:00 96.9 77 18 110/69 (83) 97 06/14/19 00:00 77 06/13/19 21:00 Room Air 06/13/19 20:00 83 06/13/19 20:00 97.9 81 18 118/64 (82) 97 06/13/19 16:00 74 06/13/19 16:00 98.5 94 20 113/69 (84) 99 06/13/19 12:00 98.0 88 20 118/50 (72) 100 06/13/19 12:00 88 06/13/19 09:00 Room Air 06/13/19 09:00 87 108/38 06/13/19 08:00 80 06/13/19 08:00 98.6 87 20 108/38 (61) 96 06/13/19 04:00 61 06/13/19 04:00 98.1 76 20 149/85 (106) 100 06/13/19 00:08 62 06/13/19 00:00 98.7 80 19 140/80 (100) 100 06/12/19 21:00 Room Air 06/12/19 20:00 98.7 68 18 119/60 (79) 100 06/12/19 19:02 87 06/12/19 16:00 97.9 76 18 116/69 (85) 97 06/12/19 16:00 91 06/12/19 12:00 97.6 71 18 131/61 (84) 96 06/12/19 12:00 64 06/12/19 09:21 141/76 06/12/19 09:21 80 141/76 06/12/19 09:00 Room Air 06/12/19 08:00 65 06/12/19 08:00 98.7 80 19 141/76 (97) 96 Intake and Output 06/13/19 06/14/19 19:00 07:00 Intake Total 60 ml 780 ml Output Total 500 ml 200 ml Balance -440 ml 580 ml Intake Free Water 180 ml Tube Feeding 60 ml 600 ml Output Urine Total 500 ml 200 ml Labs Test 06/11/19 07:10 06/12/19 04:30 06/13/19 04:00 06/14/19 04:00 White Blood Count 10.6 K/UL (4.8-10.8) 5.7 K/UL (4.8-10.8) Red Blood Count 3.64 M/UL (4.20-5.40) 3.45 M/UL (4.20-5.40) Hemoglobin 10.7 G/DL (12.0-16.0) 10.0 G/DL (12.0-16.0) Hematocrit 32.3 % (37.0-47.0) 30.6 % (37.0-47.0) Mean Corpuscular Volume 89 FL (80-99) 89 FL (80-99) Mean Corpuscular Hemoglobin 29.5 PG (27.0-31.0) 29.1 PG (27.0-31.0) Mean Corpuscular Hemoglobin Concent 33.1 G/DL (32.0-36.0) 32.9 G/DL (32.0-36.0) Red Cell Distribution Width 15.2 % (11.6-14.8) 15.1 % (11.6-14.8) Platelet Count 266 K/UL (150-450) 271 K/UL (150-450) Mean Platelet Volume 7.0 FL (6.5-10.1) 6.8 FL (6.5-10.1) Neutrophils (%) (Auto) 75.1 % (45.0-75.0) 58.6 % (45.0-75.0) Lymphocytes (%) (Auto) 14.4 % (20.0-45.0) 27.4 % (20.0-45.0) Monocytes (%) (Auto) 8.7 % (1.0-10.0) 11.1 % (1.0-10.0) Eosinophils (%) (Auto) 1.1 % (0.0-3.0) 1.7 % (0.0-3.0) Basophils (%) (Auto) 0.8 % (0.0-2.0) 1.2 % (0.0-2.0) Sodium Level 141 MMOL/L (136-145) 144 MMOL/L (136-145) 144 MMOL/L (136-145) 144 MMOL/L (136-145) Potassium Level 5.3 MMOL/L (3.5-5.1) 5.4 MMOL/L (3.5-5.1) 4.5 MMOL/L (3.5-5.1) 4.5 MMOL/L (3.5-5.1) Chloride Level 107 MMOL/L (98-107) 109 MMOL/L (98-107) 108 MMOL/L (98-107) 108 MMOL/L (98-107) Carbon Dioxide Level 29 MMOL/L (21-32) 28 MMOL/L (21-32) 30 MMOL/L (21-32) 29 MMOL/L (21-32) Anion Gap 6 mmol/L (5-15) 7 mmol/L (5-15) 6 mmol/L (5-15) 7 mmol/L (5-15) Blood Urea Nitrogen 28 mg/dL (7-18) 25 mg/dL (7-18) 23 mg/dL (7-18) 18 mg/dL (7-18) Creatinine 0.7 MG/DL (0.55-1.30) 0.6 MG/DL (0.55-1.30) 0.7 MG/DL (0.55-1.30) 0.7 MG/DL (0.55-1.30) Estimat Glomerular Filtration Rate > 60 mL/min (>60) > 60 mL/min (>60) > 60 mL/min (>60) > 60 mL/min (>60) Glucose Level 130 MG/DL (74-106) 138 MG/DL (74-106) 125 MG/DL (74-106) 114 MG/DL (74-106) Calcium Level 9.5 MG/DL (8.5-10.1) 9.0 MG/DL (8.5-10.1) 8.9 MG/DL (8.5-10.1) 9.2 MG/DL (8.5-10.1) Height (Feet): 5 Height (Inches): 3.00 Weight (Pounds): 150 Objective Physical Exam Physical Exam Narrative General: NAD, A&O x 1, awake, alert, noncommunicative HEENT: NCAT, EOMi, dry mucous membranes CV: RRR, no murmurs, rubs, or gallops Pulm: CTAB, No wheezes, rhonchi, or rales, no accessory muscle usage or conversational dyspnea GI: Soft, nontender, nondistended, bowel sounds present, +PEG c/d/i Neuro: Limited due to patient communication/participation Ext: No lower extremity edema bilaterally Skin: no rashes lesions or ulcers Timothy Wong MD Jun 14, 2019 06:04
[2019-06-14 08:00] VITALS: BP 130/72
[2019-06-14] MEDS: Valproic Acid 250mg/5ml Liquid GT SCH ×2 (09:08→20:39)
[2019-06-14] MEDS: Pantoprazole Inj IVP SCH (09:08)
[2019-06-14] MEDS: Aspirin EC 81mg tab ORAL SCH (09:09)
[2019-06-14] MEDS: Enoxaparin 40mg Inj SUBQ SCH (09:10)
--- NOTE | 2019-06-14 09:10 | General Progress Note ---
Assessment/Plan Problem List: (1) Suspected 2019 novel coronavirus infection ICD Codes: R68.89 - Other general symptoms and signs SNOMED: 191819563 (2) Lower GI bleed ICD Codes: K92.2 - Gastrointestinal hemorrhage, unspecified SNOMED: 37916188 (3) Thrombocytopenia ICD Codes: D69.6 - Thrombocytopenia, unspecified SNOMED: 071307012 (4) Diabetes mellitus ICD Codes: E11.9 - Type 2 diabetes mellitus without complications SNOMED: 38660988 (5) HTN (hypertension) ICD Codes: I10 - Essential (primary) hypertension SNOMED: 34007578 Status: stable Assessment/Plan: s/p colonoscopy in this admission now COVED +!! on Plaquenil per ID labs for am GTF tolerated will fu Subjective ROS Limited/Unobtainable: No Allergies: Coded Allergies: IODINE (Verified Allergy, Unknown, 11/10/17) Objective Last 24 Hour Vital Signs Date Time Temp Pulse Resp B/P (MAP) Pulse Ox O2 Delivery O2 Flow Rate FiO2 06/14/19 04:00 66 06/14/19 04:00 98.0 61 18 109/72 (84) 97 06/14/19 00:00 96.9 77 18 110/69 (83) 97 06/14/19 00:00 77 06/13/19 21:00 Room Air 06/13/19 20:00 83 06/13/19 20:00 97.9 81 18 118/64 (82) 97 06/13/19 16:00 74 06/13/19 16:00 98.5 94 20 113/69 (84) 99 06/13/19 12:00 98.0 88 20 118/50 (72) 100 06/13/19 12:00 88 Intake and Output 06/13/19 06/14/19 19:00 07:00 Intake Total 60 ml 940 ml Output Total 500 ml 200 ml Balance -440 ml 740 ml Intake Free Water 280 ml Tube Feeding 60 ml 660 ml Output Urine Total 500 ml 200 ml Laboratory Tests 06/14/19 04:00: White Blood Count 5.7, Red Blood Count 3.45L, Hemoglobin 10.0L, Hematocrit 30.6L , Mean Corpuscular Volume 89, Mean Corpuscular Hemoglobin 29.1, Mean Corpuscular Hemoglobin Concent 32.9, Red Cell Distribution Width 15.1H, Platelet Count 271, Mean Platelet Volume 6.8, Neutrophils (%) (Auto) 58.6, Lymphocytes (%) (Auto) 27.4, Monocytes (%) (Auto) 11.1H, Eosinophils (%) (Auto) 1.7, Basophils (%) (Auto) 1.2, Sodium Level 144, Potassium Level 4.5, Chloride Level 108H, Carbon Dioxide Level 29, Anion Gap 7, Blood Urea Nitrogen 18, Creatinine 0.7, Estimat Glomerular Filtration Rate > 60, Glucose Level 114H, Calcium Level 9.2 Height (Feet): 5 Height (Inches): 3.00 Weight (Pounds): 153 General Appearance: no apparent distress EENT: normal ENT inspection Neck: normal alignment Cardiovascular: normal rate Respiratory/Chest: decreased breath sounds Abdomen: normal bowel sounds, non tender, soft Extremities: non-tender Thang Doan MD Jun 14, 2019 09:10
[2019-06-14] MEDS ORDERED: LOVENOX10 M4 SUBQ (10:35)
[2019-06-14] MEDS ORDERED: NORVASC10 MG GT (10:35)
--- NOTE | 2019-06-14 10:38 | Discharge Summary ---
Discharge Summary Hospital Course Date of Admission May 30, 2019 at 12:08 Date of Discharge Admitting Diagnosis gi bleeding, suspected COVID 19 HPI Erica Ortega is a 74 year old female who was admitted on May 30, 2019 at 12: 08 for Gastrointestinal Bleed/Suspected Covid 19. S: no acute events overnight. Awake, appears comfortable. Able to verbalize "no " when asked if in pain. General Appearance: NAD, awake, appears comfortable, was able to say "hi" and "no" when asked if in pain HEENT: NCAT, MMM Cardiovascular: normal rate, regular rhythm Respiratory/Chest: lungs clear, normal breath sounds, no accessory muscle usage Abdomen: non tender, soft, +PEG c/d/i Ext: no edema Hospital Course 74-year-old female from [facility] w/PMH CVA, dysphasia s/p PEG, dementia, epilepsy, ?DMT2 who presents with bright red blood per rectum, GIB. Patient came facility with multiple COVID positive patients, pt is COVID positive. Colonoscopy performed on 06/01 without active bleeding. Patient was noted COVID positive, ID and pulm on board and pt received hydroxychloroquine for 5 days. Pt w/repeat COVID positive but clinically stable. D/w ID, pt ok to d/c back to SNF at this time. Pt noted with hyperkalemia for which lisinopril was stopped. Coreg was d/c'd for bradycardia. Pt to be d/c back to SNF in stable condition with f/u w/PCP. #Acute blood loss anemia - stable #Acute GIB - stable #COVID19 infection, second PCR positive #Fever - resolved #elevated D-Dimer #Staph bacteremia - suspect contaminant #h/o DMT2 #HTN #HLD #H/o Epilepsy #Seizures #Dementia #Dysphagia s/p PEG #Hyperkalemia #Hypokalemia - resolved d/c planning >30 mins. Discharge Discharge Vital Signs Last Vital Signs Date Time Temp Pulse Resp B/P (MAP) Pulse Ox O2 Delivery O2 Flow Rate FiO2 06/14/19 09:12 77 130/72 06/14/19 04:00 98.0 18 97 06/13/19 21:00 Room Air Discharge Disposition Patient was discharged to Discharge Instructions Discharge Instructions Follow up with: f/u w/PCP, post secondary professional, and GI as o/p. Will need o/p Echo. Tori Hill M.D. Jun 14, 2019 10:38
--- NOTE | 2019-06-14 10:38 | Discharge Instructions ---
Discharge Instructions Discharge Instructions Follow up with: f/u w/PCP, real estate legal secretary, and GI as o/p. Will need o/p Echo. For Congestive Heart Failure Reminder Report to your physician any weight gain of 5 pounds or more in one week. Tori Hill M.D. Jun 14, 2019 10:38
--- NOTE | 2019-06-14 11:06 | Infectious Diseases Prog Note ---
"Assessment/Plan Assessment/Plan antibiotics : none A 1. COVID 19 pneumonia s/p rx with hydroxychloroquine test + 4.8.20, 4.15.20, 4.17.20 2. fever improving 3. GI bleeding 4. diabetes mellitus 5. epilepsy 6. dementia 7. CVA 8. + blood cultures with coag neg staph | diphtheroids likely contaminated P 1. observe off antibiotics 2. will follow up cultures 3. continue isolation Subjective Constitutional: Denies: fever, chills Respiratory: Reports: dry cough; Denies: shortness of breath Gastrointestinal/Abdominal: Denies: nausea, vomiting, diarrhea Musculoskeletal: Denies: pain Allergies: Coded Allergies: IODINE (Verified Allergy, Unknown, 11/10/17) Objective Vital Signs Last 24 Hour Vital Signs Date Time Temp Pulse Resp B/P (MAP) Pulse Ox O2 Delivery O2 Flow Rate FiO2 06/14/19 09:12 77 130/72 06/14/19 04:00 66 06/14/19 04:00 98.0 61 18 109/72 (84) 97 06/14/19 00:00 96.9 77 18 110/69 (83) 97 06/14/19 00:00 77 06/13/19 21:00 Room Air 06/13/19 20:00 83 06/13/19 20:00 97.9 81 18 118/64 (82) 97 06/13/19 16:00 74 06/13/19 16:00 98.5 94 20 113/69 (84) 99 06/13/19 12:00 98.0 88 20 118/50 (72) 100 06/13/19 12:00 88 Height (Feet): 5 Height (Inches): 3.00 Weight (Pounds): 153 Laboratory Tests Test 06/14/19 04:00 White Blood Count 5.7 K/UL (4.8-10.8) Red Blood Count 3.45 M/UL (4.20-5.40) L Hemoglobin 10.0 G/DL (12.0-16.0) L Hematocrit 30.6 % (37.0-47.0) L Mean Corpuscular Volume 89 FL (80-99) Mean Corpuscular Hemoglobin 29.1 PG (27.0-31.0) Mean Corpuscular Hemoglobin Concent 32.9 G/DL (32.0-36.0) Red Cell Distribution Width 15.1 % (11.6-14.8) H Platelet Count 271 K/UL (150-450) Mean Platelet Volume 6.8 FL (6.5-10.1) Neutrophils (%) (Auto) 58.6 % (45.0-75.0) Lymphocytes (%) (Auto) 27.4 % (20.0-45.0) Monocytes (%) (Auto) 11.1 % (1.0-10.0) H Eosinophils (%) (Auto) 1.7 % (0.0-3.0) Basophils (%) (Auto) 1.2 % (0.0-2.0) Sodium Level 144 MMOL/L (136-145) Potassium Level 4.5 MMOL/L (3.5-5.1) Chloride Level 108 MMOL/L (98-107) H Carbon Dioxide Level 29 MMOL/L (21-32) Anion Gap 7 mmol/L (5-15) Blood Urea Nitrogen 18 mg/dL (7-18) Creatinine 0.7 MG/DL (0.55-1.30) Estimat Glomerular Filtration Rate > 60 mL/min (>60) Glucose Level 114 MG/DL (74-106) H Calcium Level 9.2 MG/DL (8.5-10.1) Current Medications Medications (Trade) Dose Ordered Sig/Claritza Route PRN Reason Start Time Stop Time Status Last Admin Dose Admin Acetaminophen (Tylenol) 650 mg Q4H PRN GT Mild Pain (Pain Scale 1-3) 06/08/19 13:04 07/08/19 13:03 Acetaminophen (Tylenol) 650 mg Q4H PRN GT T>100.4 06/08/19 13:04 07/08/19 13:03 Amlodipine Besylate (Norvasc) 10 mg DAILY GT 06/09/19 09:00 06/30/19 08:59 06/14/19 09:12 Aspirin (Ecotrin) 81 mg DAILY ORAL 06/10/19 09:00 07/25/19 08:59 06/14/19 09:09 Dextrose (Dextrose 50%) 25 ml Q30M PRN IV Hypoglycemia 06/08/19 13:30 08/28/19 13:29 Dextrose (Dextrose 50%) 50 ml Q30M PRN IV Hypoglycemia 06/08/19 13:30 08/28/19 13:29 Enoxaparin Sodium (Lovenox) 40 mg DAILY SUBQ 06/10/19 09:00 09/08/19 08:59 06/14/19 09:10 Escitalopram Oxalate (Lexapro) 10 mg DAILY GT 06/09/19 09:00 06/30/19 08:59 06/14/19 09:08 Insulin Aspart (NovoLOG) Q6HR SUBQ 06/14/19 06:00 09/12/19 05:59 Pantoprazole (Protonix) 40 mg DAILY IVP 06/09/19 09:00 06/30/19 10:59 06/14/19 09:08 Pravastatin Sodium (Pravachol) 80 mg BEDTIME GT 06/08/19 21:00 06/29/19 20:59 06/13/19 21:43 Risperidone (RisperDAL) 1 mg BID GT 06/08/19 18:00 07/14/19 17:59 06/14/19 09:08 Valproic Acid (Depakene) 250 mg Q12HR GT 06/08/19 21:00 06/29/19 20:59 06/14/19 09:08 Radha Dunham MD Jun 14, 2019 11:06"
--- NOTE | 2019-06-14 11:09 | Cardiac Electrophysiology PN ---
Assessment/Plan Assessment/Plan 1. Bradycardia. Resolved off Coreg. Echo not done as COVID still positive. No Clonical CHF 2. Hypertension, on amlodipine 10 daily and Lisinopril 10 daily 3. Hyperlipidemia, on Pravachol 4. Rectal bleeding. S/P Colonoscopy by Dr. Doan that showed diverticulitis 5. History of CVA. 6. S/P PEG 7. COVID PNA, positive on 06/01/19 completed Plaquenil. QTc 455 DW RN OK to DC if [facility] accepts Subjective Subjective In SR in isolation as COVID was positive. Comfortable in NAD in SR. Second Covid is also positive Objective Last 24 Hour Vital Signs Date Time Temp Pulse Resp B/P (MAP) Pulse Ox O2 Delivery O2 Flow Rate FiO2 06/14/19 09:12 77 130/72 06/14/19 04:00 66 06/14/19 04:00 98.0 61 18 109/72 (84) 97 06/14/19 00:00 96.9 77 18 110/69 (83) 97 06/14/19 00:00 77 06/13/19 21:00 Room Air 06/13/19 20:00 83 06/13/19 20:00 97.9 81 18 118/64 (82) 97 06/13/19 16:00 74 06/13/19 16:00 98.5 94 20 113/69 (84) 99 06/13/19 12:00 98.0 88 20 118/50 (72) 100 06/13/19 12:00 88 Intake and Output 06/13/19 06/14/19 19:00 07:00 Intake Total 60 ml 940 ml Output Total 500 ml 200 ml Balance -440 ml 740 ml Intake Free Water 280 ml Tube Feeding 60 ml 660 ml Output Urine Total 500 ml 200 ml Laboratory Tests Test 06/14/19 04:00 White Blood Count 5.7 K/UL (4.8-10.8) Red Blood Count 3.45 M/UL (4.20-5.40) L Hemoglobin 10.0 G/DL (12.0-16.0) L Hematocrit 30.6 % (37.0-47.0) L Mean Corpuscular Volume 89 FL (80-99) Mean Corpuscular Hemoglobin 29.1 PG (27.0-31.0) Mean Corpuscular Hemoglobin Concent 32.9 G/DL (32.0-36.0) Red Cell Distribution Width 15.1 % (11.6-14.8) H Platelet Count 271 K/UL (150-450) Mean Platelet Volume 6.8 FL (6.5-10.1) Neutrophils (%) (Auto) 58.6 % (45.0-75.0) Lymphocytes (%) (Auto) 27.4 % (20.0-45.0) Monocytes (%) (Auto) 11.1 % (1.0-10.0) H Eosinophils (%) (Auto) 1.7 % (0.0-3.0) Basophils (%) (Auto) 1.2 % (0.0-2.0) Sodium Level 144 MMOL/L (136-145) Potassium Level 4.5 MMOL/L (3.5-5.1) Chloride Level 108 MMOL/L (98-107) H Carbon Dioxide Level 29 MMOL/L (21-32) Anion Gap 7 mmol/L (5-15) Blood Urea Nitrogen 18 mg/dL (7-18) Creatinine 0.7 MG/DL (0.55-1.30) Estimat Glomerular Filtration Rate > 60 mL/min (>60) Glucose Level 114 MG/DL (74-106) H Calcium Level 9.2 MG/DL (8.5-10.1) Objective HEAD AND NECK: No JVD, LUNGS: Coarse rhonchi. CARDIOVASCULAR: Regular S1 and S2. Bradycardic. ABDOMEN: Soft and status post G-tube. EXTREMITIES: No pitting edema. Telly Gottlieb MD Jun 14, 2019 11:09
--- NOTE | 2019-06-14 11:24 | Pulmonology Progress Note ---
Assessment/Plan Assessment/Plan IMPRESSION: 1. Rectal bleeding. 2. COVID 19 positive 3. CVA. 4. shelter resident. 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 Abx per ID CXR clear Continue oxygen prn and pulmonary hygiene. Currently on RA Subjective Interval Events: None new Constitutional: Reports: no symptoms HEENT: Repors: no symptoms Respiratory: Reports: no symptoms Cardiovascular: Reports: no symptoms Gastrointestinal/Abdominal: Reports: no symptoms Allergies: Coded Allergies: IODINE (Verified Allergy, Unknown, 11/10/17) Objective Last 24 Hour Vital Signs Date Time Temp Pulse Resp B/P (MAP) Pulse Ox O2 Delivery O2 Flow Rate FiO2 06/14/19 09:12 77 130/72 06/14/19 09:00 Room Air 06/14/19 08:00 97.9 66 18 130/72 (91) 99 06/14/19 08:00 66 06/14/19 04:00 66 06/14/19 04:00 98.0 61 18 109/72 (84) 97 06/14/19 00:00 96.9 77 18 110/69 (83) 97 06/14/19 00:00 77 06/13/19 21:00 Room Air 06/13/19 20:00 83 06/13/19 20:00 97.9 81 18 118/64 (82) 97 06/13/19 16:00 74 06/13/19 16:00 98.5 94 20 113/69 (84) 99 06/13/19 12:00 98.0 88 20 118/50 (72) 100 06/13/19 12:00 88 Intake and Output 06/13/19 06/14/19 19:00 07:00 Intake Total 60 ml 940 ml Output Total 500 ml 200 ml Balance -440 ml 740 ml Intake Free Water 280 ml Tube Feeding 60 ml 660 ml Output Urine Total 500 ml 200 ml General Appearance: no acute distress HEENT: normocephalic Respiratory/Chest: chest wall non-tender, lungs clear Cardiovascular: normal peripheral pulses, normal rate Abdomen: normal bowel sounds Extremities: no cyanosis Laboratory Tests 06/14/19 04:00: White Blood Count 5.7, Red Blood Count 3.45L, Hemoglobin 10.0L, Hematocrit 30.6L , Mean Corpuscular Volume 89, Mean Corpuscular Hemoglobin 29.1, Mean Corpuscular Hemoglobin Concent 32.9, Red Cell Distribution Width 15.1H, Platelet Count 271, Mean Platelet Volume 6.8, Neutrophils (%) (Auto) 58.6, Lymphocytes (%) (Auto) 27.4, Monocytes (%) (Auto) 11.1H, Eosinophils (%) (Auto) 1.7, Basophils (%) (Auto) 1.2, Sodium Level 144, Potassium Level 4.5, Chloride Level 108H, Carbon Dioxide Level 29, Anion Gap 7, Blood Urea Nitrogen 18, Creatinine 0.7, Estimat Glomerular Filtration Rate > 60, Glucose Level 114H, Calcium Level 9.2 Current Medications Medications (Trade) Dose Ordered Sig/Claritza Route PRN Reason Start Time Stop Time Status Last Admin Dose Admin Acetaminophen (Tylenol) 650 mg Q4H PRN GT Mild Pain (Pain Scale 1-3) 06/08/19 13:04 07/08/19 13:03 Acetaminophen (Tylenol) 650 mg Q4H PRN GT T>100.4 06/08/19 13:04 07/08/19 13:03 Amlodipine Besylate (Norvasc) 10 mg DAILY GT 06/09/19 09:00 06/30/19 08:59 06/14/19 09:12 Aspirin (Ecotrin) 81 mg DAILY ORAL 06/10/19 09:00 07/25/19 08:59 06/14/19 09:09 Dextrose (Dextrose 50%) 25 ml Q30M PRN IV Hypoglycemia 06/08/19 13:30 08/28/19 13:29 Dextrose (Dextrose 50%) 50 ml Q30M PRN IV Hypoglycemia 06/08/19 13:30 08/28/19 13:29 Enoxaparin Sodium (Lovenox) 40 mg DAILY SUBQ 06/10/19 09:00 09/08/19 08:59 06/14/19 09:10 Escitalopram Oxalate (Lexapro) 10 mg DAILY GT 06/09/19 09:00 06/30/19 08:59 06/14/19 09:08 Insulin Aspart (NovoLOG) Q6HR SUBQ 06/14/19 06:00 09/12/19 05:59 Pantoprazole (Protonix) 40 mg DAILY IVP 06/09/19 09:00 06/30/19 10:59 06/14/19 09:08 Pravastatin Sodium (Pravachol) 80 mg BEDTIME GT 06/08/19 21:00 06/29/19 20:59 06/13/19 21:43 Risperidone (RisperDAL) 1 mg BID GT 06/08/19 18:00 07/14/19 17:59 06/14/19 09:08 Valproic Acid (Depakene) 250 mg Q12HR GT 06/08/19 21:00 06/29/19 20:59 06/14/19 09:08 Horace Landaverde MD Jun 14, 2019 11:24
[2019-06-14 12:00] VITALS: BP 109/53
--- NOTE | 2019-06-14 13:25 | Surgery Progress Note ---
Surgery Progress Note Subjective Symptoms: improved Objective Last 24 Hour Vital Signs Date Time Temp Pulse Resp B/P (MAP) Pulse Ox O2 Delivery O2 Flow Rate FiO2 06/14/19 12:00 82 06/14/19 12:00 97.7 82 18 109/53 (71) 99 06/14/19 09:12 77 130/72 06/14/19 09:00 Room Air 06/14/19 08:00 97.9 66 18 130/72 (91) 99 06/14/19 08:00 66 06/14/19 04:00 66 06/14/19 04:00 98.0 61 18 109/72 (84) 97 06/14/19 00:00 96.9 77 18 110/69 (83) 97 06/14/19 00:00 77 06/13/19 21:00 Room Air 06/13/19 20:00 83 06/13/19 20:00 97.9 81 18 118/64 (82) 97 06/13/19 16:00 74 06/13/19 16:00 98.5 94 20 113/69 (84) 99 I&O Intake and Output 06/13/19 06/14/19 19:00 07:00 Intake Total 60 ml 940 ml Output Total 500 ml 200 ml Balance -440 ml 740 ml Intake Free Water 280 ml Tube Feeding 60 ml 660 ml Output Urine Total 500 ml 200 ml Dressing: dry Wound: clean Cardiovascular: RSR Respiratory: clear, decreased breath sounds Abdomen: present bowel sounds Extremities: no tenderness, no cyanosis, other Laboratory Tests Test 06/14/19 04:00 White Blood Count 5.7 K/UL (4.8-10.8) Red Blood Count 3.45 M/UL (4.20-5.40) L Hemoglobin 10.0 G/DL (12.0-16.0) L Hematocrit 30.6 % (37.0-47.0) L Mean Corpuscular Volume 89 FL (80-99) Mean Corpuscular Hemoglobin 29.1 PG (27.0-31.0) Mean Corpuscular Hemoglobin Concent 32.9 G/DL (32.0-36.0) Red Cell Distribution Width 15.1 % (11.6-14.8) H Platelet Count 271 K/UL (150-450) Mean Platelet Volume 6.8 FL (6.5-10.1) Neutrophils (%) (Auto) 58.6 % (45.0-75.0) Lymphocytes (%) (Auto) 27.4 % (20.0-45.0) Monocytes (%) (Auto) 11.1 % (1.0-10.0) H Eosinophils (%) (Auto) 1.7 % (0.0-3.0) Basophils (%) (Auto) 1.2 % (0.0-2.0) Sodium Level 144 MMOL/L (136-145) Potassium Level 4.5 MMOL/L (3.5-5.1) Chloride Level 108 MMOL/L (98-107) H Carbon Dioxide Level 29 MMOL/L (21-32) Anion Gap 7 mmol/L (5-15) Blood Urea Nitrogen 18 mg/dL (7-18) Creatinine 0.7 MG/DL (0.55-1.30) Estimat Glomerular Filtration Rate > 60 mL/min (>60) Glucose Level 114 MG/DL (74-106) H Calcium Level 9.2 MG/DL (8.5-10.1) Plan Problems: (1) Episode of generalized weakness (2) Encephalopathy (3) Constipation (4) Hypercalcemia (5) Dysphagia (6) Altered level of consciousness (7) Toxic encephalopathy (8) Thrombocytopenia (9) GIB (gastrointestinal bleeding) Assessment & Plan: Upper GI lavage with g tube no blood likely lower gi bleed diverticuli? appreciate GI input s/p scope no acute findings okay for diet trend h/h abd exam benign no acute surgical intervention planned will follow with recs thank you resp support COVID + no gi bleed actively d dimer up elaquis d/c planning continues to remain + as of 06/09 (10) Lower GI bleed Assessment & Plan: Findings: There is a gastrostomy tube in place. The bowel gas pattern is unremarkable. No masses or unusual calcifications. There are degenerative changes of the lumbar spine Impression: No acute process DAILY ESTIMATED NEEDS: Needs based on Cardiac, pulmonary 56.3kg abw 25-30 kcals/kg 7809-8147 total kcals 1-1.5 g protein/kg 56-85 g total protein 25-30 mL/kg 6567-3458 total fluid mLs NUTRITION DIAGNOSIS: *Swallowing difficulty R/T dysphagia as evidenced by pt is GT dep w/ h/o CVA. CURRENT TF: Jevity 1.2 @ 60ml/hr x 24 hrs ENTERAL NUTRITION RECOMMENDATIONS: Glucerna 1.5 @ 40ml/hr x24 hrs to provide 960ml, 1440 kcal, 79g pro, 729ml free h2O - Rec TF change to Glucerna 1.5: A1C 5.9, BGs elevated - Start Glucerna 1.5 @35ml/hr for 6 hrs, advance 10ml/hr q4-6 hrs to goal - Flush per MD. HOB over 30 degrees ADDITIONAL RECOMMENDATIONS: * Calibrated bed scale wts as able * Monitor BGs, need for NISS-> mid 100's, rec niss * Monitor lytes, replete as needed K now elev, monitor trend and need for TF change. (11) Epilepsy (12) Acute febrile illness (13) CVA (cerebral vascular accident) (14) Suspected 2018 novel coronavirus infection (15) Diabetes mellitus (16) HTN (hypertension) Tomi Ordoñez Jun 14, 2019 13:25
[2019-06-14 16:00] VITALS: BP 102/58
[2019-06-14 21:00] VITALS: BP 106/59
--- NOTE | 2019-06-14 22:04 | Neurology Progress Note ---
Interim History Interim History ROS Limited/Unobtainable: No Interim History no seizures Objective Physical Exam Last Vital Signs Date Time Temp Pulse Resp B/P (MAP) Pulse Ox O2 Delivery O2 Flow Rate FiO2 06/14/19 16:00 97.1 77 20 102/58 (73) 98 06/14/19 09:00 Room Air Laboratory Tests Test 06/14/19 04:00 White Blood Count 5.7 K/UL (4.8-10.8) Red Blood Count 3.45 M/UL (4.20-5.40) L Hemoglobin 10.0 G/DL (12.0-16.0) L Hematocrit 30.6 % (37.0-47.0) L Mean Corpuscular Volume 89 FL (80-99) Mean Corpuscular Hemoglobin 29.1 PG (27.0-31.0) Mean Corpuscular Hemoglobin Concent 32.9 G/DL (32.0-36.0) Red Cell Distribution Width 15.1 % (11.6-14.8) H Platelet Count 271 K/UL (150-450) Mean Platelet Volume 6.8 FL (6.5-10.1) Neutrophils (%) (Auto) 58.6 % (45.0-75.0) Lymphocytes (%) (Auto) 27.4 % (20.0-45.0) Monocytes (%) (Auto) 11.1 % (1.0-10.0) H Eosinophils (%) (Auto) 1.7 % (0.0-3.0) Basophils (%) (Auto) 1.2 % (0.0-2.0) Sodium Level 144 MMOL/L (136-145) Potassium Level 4.5 MMOL/L (3.5-5.1) Chloride Level 108 MMOL/L (98-107) H Carbon Dioxide Level 29 MMOL/L (21-32) Anion Gap 7 mmol/L (5-15) Blood Urea Nitrogen 18 mg/dL (7-18) Creatinine 0.7 MG/DL (0.55-1.30) Estimat Glomerular Filtration Rate > 60 mL/min (>60) Glucose Level 114 MG/DL (74-106) H Calcium Level 9.2 MG/DL (8.5-10.1) Neurologic Exam Objective lethargic, withdraws a to pain contracture in all 4. non verbal cc 36 min Impression/Recommendations Problems: (1) Episode of generalized weakness (2) Encephalopathy (3) Constipation (4) Hypercalcemia (5) Dysphagia (6) Altered level of consciousness (7) Toxic encephalopathy (8) Thrombocytopenia (9) GIB (gastrointestinal bleeding) (10) Lower GI bleed (11) Epilepsy (12) Acute febrile illness (13) CVA (cerebral vascular accident) (14) Suspected 2019 novel coronavirus infection (15) Diabetes mellitus (16) HTN (hypertension) Status: stable Diagnostic Impression ICU level of care MAp > 65 neuro checks q2h ATB per primary cont depakote 500 mg bid rule out covid19 del precautions no need for LP holding antiplatelets Larry Juarez MD Jun 14, 2019 22:04
[2019-06-15] VITALS: BP 110/55
[2019-06-15 04:00] VITALS: BP 115/67
[2019-06-15] MEDS: NovoLOG Insulin Flexpen SUBQ SCH ×2 (06:00)
--- NOTE | 2019-06-15 06:07 | Hematology/Onc Progress Note ---
Assessment/Plan Assessment/Plan Assessment and Recs: # Pancytopenia with Acute blood loss anemia, currently has been progressing is due to COVID19 --> likely related to underlying infection, covid rule out at this time --> hepatitis and hiv are BOTH NEG --> us of the abdomen is pending, r/o hsm and cirrhosisnone noted and gtube in place noted --> smear of the periphery is pending->reviewed no schistocytes seen --> abx as per id, started --> pressors prn, now off --> 06/01 for colo by Olimpia showed 3 polyps/diverticulitis --> repeat colo in 3 months # Acute GIB, with decrease in h/h --> no evidence of hemolysis is noted --> transfuse as needed, hgb goal >7 --> IVF hgb trend 10.4-->11.5-->10.5-->11-->10.7-->10 --> Protonix given in ED --> GI consulted, Dr Doan: GT lavage neg, transfuse plts, prep for possible colonoscopy, also per surg # Fever likely due to covid 19++ --> currently is on iso --> COVID 19++ --> KUB negative --> CXR ?right lung infiltrate --> per pulm --> monitor off abx # DMT2 --> accuchecks qac and qhs --> iss prn # HTN --> sbp goal is less than 140 --> as per cards # HLD --> holding ASA given acute GIB # H/o Epilepsy # Seizures # Dementia # Dysphagia s/p PEG --> on tfs # DVT PPx: SCDs given acute GIB Appreciate consultation and jose Rn Subjective HEENT: Denies: no symptoms, eye pain, blurred vision, tearing, double vision, ear pain, ear discharge, nose pain, nose congestion, throat pain, throat swelling, mouth pain, mouth swelling, other Cardiovascular: Denies: no symptoms, chest pain, edema, irregular heart rate, lightheadedness, palpitations, syncope, other Respiratory: Denies: no symptoms, cough, shortness of breath, SOB with excertion, SOB at rest, sputum, wheezing, other Gastrointestinal/Abdominal: Denies: no symptoms, abdomen distended, abdominal pain, black stools, tarry stools, blood in stool, constipated, diarrhea, difficulty swallowing, nausea, poor appetite, poor fluid intake, rectal bleeding , vomiting, other Genitourinary: Denies: no symptoms, burning, discharge, frequency, flank pain, hematuria, incontinence, pain, urgency, other Neurologic/Psychiatric: Denies: no symptoms, anxiety, depressed, emotional problems, headache, numbness, paresthesia, pre-existing deficit, seizure, tingling, tremors, weakness, other Endocrine: Denies: no symptoms, excessive sweating, flushing, intolerance to cold, intolerance to heat, increased hunger, increased thirst, increased urine, unexplained weight gain, unexplained weight loss, other Allergies: Coded Allergies: IODINE (Verified Allergy, Unknown, 11/10/17) Subjective 05/31 is for colo tomorrow, labs reviewed, hgb stable 06/01 as per gi eval, for scope, no night sweats, dw rn 06/02 no major changes, labs reviewed, no bleeding, colo done yesterday, 3 polyps noted 06/05 asleep, no bleeding or chills, labs have been noted, no night swearts, hgb 10.5 06/06 no major changes, no bleeding, labs reviewed, no night sweats 06/07 no events, no bleeding or night sweats, labs noted, now with COVID++ 06/08 labs noted, hgb is stable, dw gi, no bleeding at this time 06/09 on tele, off abx, labs reviewed, on room air 06/11 no overnight events, afebrile, no sob, 06/12 is breathing well on room air, no night sweats 06/13 no major events, labs reviewed, hgb approx 10, on tube feeds 06/14 no bleeding, labs noted, hgb 10, potentially disc today Objective Objective Current Medications Medications (Trade) Dose Ordered Sig/Claritza Route PRN Reason Start Time Stop Time Status Last Admin Dose Admin Acetaminophen (Tylenol) 650 mg Q4H PRN GT Mild Pain (Pain Scale 1-3) 06/08/19 13:04 07/08/19 13:03 Acetaminophen (Tylenol) 650 mg Q4H PRN GT T>100.4 06/08/19 13:04 07/08/19 13:03 Amlodipine Besylate (Norvasc) 10 mg DAILY GT 06/09/19 09:00 06/30/19 08:59 06/14/19 09:12 Aspirin (Ecotrin) 81 mg DAILY ORAL 06/10/19 09:00 07/25/19 08:59 06/14/19 09:09 Dextrose (Dextrose 50%) 25 ml Q30M PRN IV Hypoglycemia 06/08/19 13:30 08/28/19 13:29 Dextrose (Dextrose 50%) 50 ml Q30M PRN IV Hypoglycemia 06/08/19 13:30 08/28/19 13:29 Enoxaparin Sodium (Lovenox) 40 mg DAILY SUBQ 06/10/19 09:00 09/08/19 08:59 06/14/19 09:10 Escitalopram Oxalate (Lexapro) 10 mg DAILY GT 06/09/19 09:00 06/30/19 08:59 06/14/19 09:08 Insulin Aspart (NovoLOG) Q6HR SUBQ 06/14/19 06:00 09/12/19 05:59 Pantoprazole (Protonix) 40 mg DAILY IVP 06/09/19 09:00 06/30/19 10:59 06/14/19 09:08 Pravastatin Sodium (Pravachol) 80 mg BEDTIME GT 06/08/19 21:00 06/29/19 20:59 06/14/19 20:39 Risperidone (RisperDAL) 1 mg BID GT 06/08/19 18:00 07/14/19 17:59 06/14/19 17:35 Valproic Acid (Depakene) 250 mg Q12HR GT 06/08/19 21:00 06/29/19 20:59 06/14/19 20:39 Last 24 Hour Vital Signs Date Time Temp Pulse Resp B/P (MAP) Pulse Ox O2 Delivery O2 Flow Rate FiO2 06/15/19 04:00 97.7 80 17 115/67 (83) 98 06/15/19 04:00 67 06/15/19 00:00 97.8 76 16 110/55 (73) 96 06/15/19 00:00 66 06/14/19 21:00 98.2 79 19 106/59 (75) 96 06/14/19 21:00 Room Air 06/14/19 20:00 79 06/14/19 16:00 97.1 77 20 102/58 (73) 98 06/14/19 16:00 83 06/14/19 12:00 82 06/14/19 12:00 97.7 82 18 109/53 (71) 99 06/14/19 09:12 77 130/72 06/14/19 09:00 Room Air 06/14/19 08:00 97.9 66 18 130/72 (91) 99 06/14/19 08:00 66 06/14/19 04:00 66 06/14/19 04:00 98.0 61 18 109/72 (84) 97 06/14/19 00:00 96.9 77 18 110/69 (83) 97 06/14/19 00:00 77 06/13/19 21:00 Room Air 06/13/19 20:00 83 06/13/19 20:00 97.9 81 18 118/64 (82) 97 06/13/19 16:00 74 06/13/19 16:00 98.5 94 20 113/69 (84) 99 06/13/19 12:00 98.0 88 20 118/50 (72) 100 06/13/19 12:00 88 06/13/19 09:00 Room Air 06/13/19 09:00 87 108/38 06/13/19 08:00 80 06/13/19 08:00 98.6 87 20 108/38 (61) 96 Intake and Output 06/14/19 06/15/19 19:00 07:00 Intake Total 60 ml 240 ml Balance 60 ml 240 ml Tube Feeding 60 ml 240 ml # Voids 1 2 # Bowel Movements 1 Labs Test 06/13/19 04:00 06/14/19 04:00 Sodium Level 144 MMOL/L (136-145) 144 MMOL/L (136-145) Potassium Level 4.5 MMOL/L (3.5-5.1) 4.5 MMOL/L (3.5-5.1) Chloride Level 108 MMOL/L (98-107) 108 MMOL/L (98-107) Carbon Dioxide Level 30 MMOL/L (21-32) 29 MMOL/L (21-32) Anion Gap 6 mmol/L (5-15) 7 mmol/L (5-15) Blood Urea Nitrogen 23 mg/dL (7-18) 18 mg/dL (7-18) Creatinine 0.7 MG/DL (0.55-1.30) 0.7 MG/DL (0.55-1.30) Estimat Glomerular Filtration Rate > 60 mL/min (>60) > 60 mL/min (>60) Glucose Level 125 MG/DL (74-106) 114 MG/DL (74-106) Calcium Level 8.9 MG/DL (8.5-10.1) 9.2 MG/DL (8.5-10.1) White Blood Count 5.7 K/UL (4.8-10.8) Red Blood Count 3.45 M/UL (4.20-5.40) Hemoglobin 10.0 G/DL (12.0-16.0) Hematocrit 30.6 % (37.0-47.0) Mean Corpuscular Volume 89 FL (80-99) Mean Corpuscular Hemoglobin 29.1 PG (27.0-31.0) Mean Corpuscular Hemoglobin Concent 32.9 G/DL (32.0-36.0) Red Cell Distribution Width 15.1 % (11.6-14.8) Platelet Count 271 K/UL (150-450) Mean Platelet Volume 6.8 FL (6.5-10.1) Neutrophils (%) (Auto) 58.6 % (45.0-75.0) Lymphocytes (%) (Auto) 27.4 % (20.0-45.0) Monocytes (%) (Auto) 11.1 % (1.0-10.0) Eosinophils (%) (Auto) 1.7 % (0.0-3.0) Basophils (%) (Auto) 1.2 % (0.0-2.0) Height (Feet): 5 Height (Inches): 3.00 Weight (Pounds): 153 Objective Physical Exam Physical Exam Narrative General: NAD, A&O x 1, awake, alert, noncommunicative HEENT: NCAT, EOMi, dry mucous membranes CV: RRR, no murmurs, rubs, or gallops Pulm: CTAB, No wheezes, rhonchi, or rales, no accessory muscle usage or conversational dyspnea GI: Soft, nontender, nondistended, bowel sounds present, +PEG c/d/i Neuro: Limited due to patient communication/participation Ext: No lower extremity edema bilaterally Skin: no rashes lesions or ulcers Timothy Wong MD Jun 15, 2019 06:07
[2019-06-15 08:00] VITALS: BP 115/58
--- NOTE | 2019-06-15 08:16 | General Progress Note ---
Assessment/Plan Problem List: (1) Suspected 2019 novel coronavirus infection ICD Codes: R68.89 - Other general symptoms and signs SNOMED: 124092811 (2) Lower GI bleed ICD Codes: K92.2 - Gastrointestinal hemorrhage, unspecified SNOMED: 23099446 (3) Thrombocytopenia ICD Codes: D69.6 - Thrombocytopenia, unspecified SNOMED: 035497647 (4) Diabetes mellitus ICD Codes: E11.9 - Type 2 diabetes mellitus without complications SNOMED: 60970979 (5) HTN (hypertension) ICD Codes: I10 - Essential (primary) hypertension SNOMED: 82111747 Status: stable Assessment/Plan: s/p colonoscopy in this admission now COVED +!! on Plaquenil per ID labs for am GTF tolerated will fu Subjective ROS Limited/Unobtainable: No Allergies: Coded Allergies: IODINE (Verified Allergy, Unknown, 11/10/17) Objective Last 24 Hour Vital Signs Date Time Temp Pulse Resp B/P (MAP) Pulse Ox O2 Delivery O2 Flow Rate FiO2 06/15/19 04:00 97.7 80 17 115/67 (83) 98 06/15/19 04:00 67 06/15/19 00:00 97.8 76 16 110/55 (73) 96 06/15/19 00:00 66 06/14/19 21:00 98.2 79 19 106/59 (75) 96 06/14/19 21:00 Room Air 06/14/19 20:00 79 06/14/19 16:00 97.1 77 20 102/58 (73) 98 06/14/19 16:00 83 06/14/19 12:00 82 06/14/19 12:00 97.7 82 18 109/53 (71) 99 06/14/19 09:12 77 130/72 06/14/19 09:00 Room Air Intake and Output 06/14/19 06/15/19 19:00 07:00 Intake Total 60 ml 240 ml Output Total 600 ml Balance 60 ml -360 ml Tube Feeding 60 ml 240 ml Output Urine Total 600 ml # Voids 1 3 # Bowel Movements 2 Height (Feet): 5 Height (Inches): 3.00 Weight (Pounds): 153 General Appearance: alert EENT: normal ENT inspection Neck: supple Cardiovascular: normal rate Respiratory/Chest: decreased breath sounds Abdomen: normal bowel sounds, non tender, soft Extremities: non-tender Thang Doan MD Jun 15, 2019 08:16
[2019-06-15 09:18] VITALS: BP 115/58
[2019-06-15] MEDS: Aspirin EC 81mg tab ORAL SCH (09:18)
[2019-06-15] MEDS: Valproic Acid 250mg/5ml Liquid GT SCH (09:19)
[2019-06-15] MEDS: Enoxaparin 40mg Inj SUBQ SCH (09:20)
[2019-06-15] MEDS: Pantoprazole Inj IVP SCH (09:22)
--- NOTE | 2019-06-15 10:16 | Infectious Diseases Prog Note ---
"Assessment/Plan Assessment/Plan antibiotics : none A 1. COVID 19 pneumonia s/p rx with hydroxychloroquine test + 4.8.20, 4.15.20, 4.17.20, 4.20.20 2. fever resolved 3. GI bleeding 4. diabetes mellitus 5. epilepsy 6. dementia 7. CVA 8. + blood cultures with coag neg staph | diphtheroids likely contaminated P 1. observe off antibiotics 2. will follow up cultures 3. continue isolation Subjective ROS Limited/Unobtainable: Yes Allergies: Coded Allergies: IODINE (Verified Allergy, Unknown, 11/10/17) Objective Vital Signs Last 24 Hour Vital Signs Date Time Temp Pulse Resp B/P (MAP) Pulse Ox O2 Delivery O2 Flow Rate FiO2 06/15/19 09:18 70 115/58 06/15/19 04:00 97.7 80 17 115/67 (83) 98 06/15/19 04:00 67 06/15/19 00:00 97.8 76 16 110/55 (73) 96 06/15/19 00:00 66 06/14/19 21:00 98.2 79 19 106/59 (75) 96 06/14/19 21:00 Room Air 06/14/19 20:00 79 06/14/19 16:00 97.1 77 20 102/58 (73) 98 06/14/19 16:00 83 06/14/19 12:00 82 06/14/19 12:00 97.7 82 18 109/53 (71) 99 Height (Feet): 5 Height (Inches): 3.00 Weight (Pounds): 153 Microbiology Date/Time Source Procedure Growth Status 06/13/19 13:32 Nasopharynx Coronavirus COVID-19 PCR (HOME) - Final Complete Current Medications Medications (Trade) Dose Ordered Sig/Claritza Route PRN Reason Start Time Stop Time Status Last Admin Dose Admin Acetaminophen (Tylenol) 650 mg Q4H PRN GT Mild Pain (Pain Scale 1-3) 06/08/19 13:04 07/08/19 13:03 Acetaminophen (Tylenol) 650 mg Q4H PRN GT T>100.4 06/08/19 13:04 07/08/19 13:03 Amlodipine Besylate (Norvasc) 10 mg DAILY GT 06/09/19 09:00 06/30/19 08:59 06/15/19 09:18 Aspirin (Ecotrin) 81 mg DAILY ORAL 06/10/19 09:00 07/25/19 08:59 06/15/19 09:18 Dextrose (Dextrose 50%) 25 ml Q30M PRN IV Hypoglycemia 06/08/19 13:30 08/28/19 13:29 Dextrose (Dextrose 50%) 50 ml Q30M PRN IV Hypoglycemia 06/08/19 13:30 08/28/19 13:29 Enoxaparin Sodium (Lovenox) 40 mg DAILY SUBQ 06/10/19 09:00 09/08/19 08:59 06/15/19 09:20 Escitalopram Oxalate (Lexapro) 10 mg DAILY GT 06/09/19 09:00 06/30/19 08:59 06/15/19 09:19 Insulin Aspart (NovoLOG) Q6HR SUBQ 06/14/19 06:00 09/12/19 05:59 Pantoprazole (Protonix) 40 mg DAILY IVP 06/09/19 09:00 06/30/19 10:59 06/15/19 09:22 Pravastatin Sodium (Pravachol) 80 mg BEDTIME GT 06/08/19 21:00 06/29/19 20:59 06/14/19 20:39 Risperidone (RisperDAL) 1 mg BID GT 06/08/19 18:00 07/14/19 17:59 06/15/19 09:18 Valproic Acid (Depakene) 250 mg Q12HR GT 06/08/19 21:00 06/29/19 20:59 06/15/19 09:19 Radha Dunham MD Jun 15, 2019 10:16"
--- NOTE | 2019-06-15 10:45 | Pulmonology Progress Note ---
Assessment/Plan Assessment/Plan IMPRESSION: 1. Rectal bleeding. 2. COVID 19 positive 3. CVA. 4. longterm resident. DISCUSSION: COVID 19 positive I will follow as receiving manager. Abx per ID CXR clear Continue oxygen prn and pulmonary hygiene. Currently on RA Subjective ROS Limited/Unobtainable: Yes Interval Events: None new Constitutional: Reports: no symptoms HEENT: Repors: no symptoms Respiratory: Reports: no symptoms Cardiovascular: Reports: no symptoms Gastrointestinal/Abdominal: Reports: no symptoms Genitourinary: Reports: no symptoms Musculoskeletal: Denies: pain Allergies: Coded Allergies: IODINE (Verified Allergy, Unknown, 11/10/17) Objective Last 24 Hour Vital Signs Date Time Temp Pulse Resp B/P (MAP) Pulse Ox O2 Delivery O2 Flow Rate FiO2 06/15/19 09:18 70 115/58 06/15/19 09:00 Room Air 06/15/19 08:00 97.9 74 20 115/58 (77) 97 06/15/19 08:00 74 06/15/19 04:00 97.7 80 17 115/67 (83) 98 06/15/19 04:00 67 06/15/19 00:00 97.8 76 16 110/55 (73) 96 06/15/19 00:00 66 06/14/19 21:00 98.2 79 19 106/59 (75) 96 06/14/19 21:00 Room Air 06/14/19 20:00 79 06/14/19 16:00 97.1 77 20 102/58 (73) 98 06/14/19 16:00 83 06/14/19 12:00 82 06/14/19 12:00 97.7 82 18 109/53 (71) 99 Intake and Output 06/14/19 06/15/19 19:00 07:00 Intake Total 60 ml 240 ml Output Total 600 ml Balance 60 ml -360 ml Tube Feeding 60 ml 240 ml Output Urine Total 600 ml # Voids 1 3 # Bowel Movements 2 General Appearance: no acute distress HEENT: normocephalic Respiratory/Chest: chest wall non-tender, lungs clear Cardiovascular: normal peripheral pulses, normal rate Abdomen: normal bowel sounds Extremities: no cyanosis Neurologic/Psychiatric: unresponsiveness Microbiology Date/Time Source Procedure Growth Status 06/13/19 13:32 Nasopharynx Coronavirus COVID-19 PCR (HOME) - Final Complete Current Medications Medications (Trade) Dose Ordered Sig/Claritza Route PRN Reason Start Time Stop Time Status Last Admin Dose Admin Acetaminophen (Tylenol) 650 mg Q4H PRN GT Mild Pain (Pain Scale 1-3) 06/08/19 13:04 07/08/19 13:03 Acetaminophen (Tylenol) 650 mg Q4H PRN GT T>100.4 06/08/19 13:04 07/08/19 13:03 Amlodipine Besylate (Norvasc) 10 mg DAILY GT 06/09/19 09:00 06/30/19 08:59 06/15/19 09:18 Aspirin (Ecotrin) 81 mg DAILY ORAL 06/10/19 09:00 07/25/19 08:59 06/15/19 09:18 Dextrose (Dextrose 50%) 25 ml Q30M PRN IV Hypoglycemia 06/08/19 13:30 08/28/19 13:29 Dextrose (Dextrose 50%) 50 ml Q30M PRN IV Hypoglycemia 06/08/19 13:30 08/28/19 13:29 Enoxaparin Sodium (Lovenox) 40 mg DAILY SUBQ 06/10/19 09:00 09/08/19 08:59 06/15/19 09:20 Escitalopram Oxalate (Lexapro) 10 mg DAILY GT 06/09/19 09:00 06/30/19 08:59 06/15/19 09:19 Insulin Aspart (NovoLOG) Q6HR SUBQ 06/14/19 06:00 09/12/19 05:59 Pantoprazole (Protonix) 40 mg DAILY IVP 06/09/19 09:00 06/30/19 10:59 06/15/19 09:22 Pravastatin Sodium (Pravachol) 80 mg BEDTIME GT 06/08/19 21:00 06/29/19 20:59 06/14/19 20:39 Risperidone (RisperDAL) 1 mg BID GT 06/08/19 18:00 07/14/19 17:59 06/15/19 09:18 Valproic Acid (Depakene) 250 mg Q12HR GT 06/08/19 21:00 06/29/19 20:59 06/15/19 09:19 Horace Landaverde MD Jun 15, 2019 10:45
[2019-06-15] MEDS ORDERED: Sterile Water Irrig 1000ml IRRIG ONE (11:29)
--- NOTE | 2019-06-15 11:59 | Cardiac Electrophysiology PN ---
Assessment/Plan Assessment/Plan 1. Bradycardia. Resolved off Coreg. Echo not done as COVID still positive. No Clinical CHF 2. Hypertension, on amlodipine 10 daily and Lisinopril 10 daily 3. Hyperlipidemia, on Pravachol 4. Rectal bleeding. S/P Colonoscopy by Dr. Doan that showed diverticulitis 5. History of CVA. 6. S/P PEG 7. COVID PNA, positive on 06/01/19 Off Plaquenil. QTc 455 Subjective Subjective In SR in isolation as COVID was positive. Comfortable in NAD in SR. Second Covid is also positive Objective Last 24 Hour Vital Signs Date Time Temp Pulse Resp B/P (MAP) Pulse Ox O2 Delivery O2 Flow Rate FiO2 06/15/19 09:18 70 115/58 06/15/19 09:00 Room Air 06/15/19 08:00 97.9 74 20 115/58 (77) 97 06/15/19 08:00 74 06/15/19 04:00 97.7 80 17 115/67 (83) 98 06/15/19 04:00 67 06/15/19 00:00 97.8 76 16 110/55 (73) 96 06/15/19 00:00 66 06/14/19 21:00 98.2 79 19 106/59 (75) 96 06/14/19 21:00 Room Air 06/14/19 20:00 79 06/14/19 16:00 97.1 77 20 102/58 (73) 98 06/14/19 16:00 83 06/14/19 12:00 82 06/14/19 12:00 97.7 82 18 109/53 (71) 99 Intake and Output 06/14/19 06/15/19 19:00 07:00 Intake Total 60 ml 240 ml Output Total 600 ml Balance 60 ml -360 ml Tube Feeding 60 ml 240 ml Output Urine Total 600 ml # Voids 1 3 # Bowel Movements 2 Microbiology Date/Time Source Procedure Growth Status 06/13/19 13:32 Nasopharynx Coronavirus COVID-19 PCR (HOME) - Final Complete Objective HEAD AND NECK: No JVD, LUNGS: Coarse rhonchi. CARDIOVASCULAR: Regular S1 and S2. Bradycardic. ABDOMEN: Soft and status post G-tube. EXTREMITIES: No pitting edema. Telly Gottlieb MD Jun 15, 2019 11:59
--- NOTE | 2019-06-15 12:03 | Surgery Progress Note ---
Surgery Progress Note Subjective Additional Comments COVID + micro noted exam stable comfortable no complaints Objective Last 24 Hour Vital Signs Date Time Temp Pulse Resp B/P (MAP) Pulse Ox O2 Delivery O2 Flow Rate FiO2 06/15/19 09:18 70 115/58 06/15/19 09:00 Room Air 06/15/19 08:00 97.9 74 20 115/58 (77) 97 06/15/19 08:00 74 06/15/19 04:00 97.7 80 17 115/67 (83) 98 06/15/19 04:00 67 06/15/19 00:00 97.8 76 16 110/55 (73) 96 06/15/19 00:00 66 06/14/19 21:00 98.2 79 19 106/59 (75) 96 06/14/19 21:00 Room Air 06/14/19 20:00 79 06/14/19 16:00 97.1 77 20 102/58 (73) 98 06/14/19 16:00 83 I&O Intake and Output 06/14/19 06/15/19 19:00 07:00 Intake Total 60 ml 240 ml Output Total 600 ml Balance 60 ml -360 ml Tube Feeding 60 ml 240 ml Output Urine Total 600 ml # Voids 1 3 # Bowel Movements 2 Dressing: other Wound: other Drains: other Cardiovascular: RSR Respiratory: decreased breath sounds Abdomen: soft, non-tender, present bowel sounds Extremities: no tenderness, no cyanosis Plan Problems: (1) Episode of generalized weakness (2) Encephalopathy (3) Constipation (4) Hypercalcemia (5) Dysphagia (6) Altered level of consciousness (7) Toxic encephalopathy (8) Thrombocytopenia (9) GIB (gastrointestinal bleeding) Assessment & Plan: Upper GI lavage with g tube no blood likely lower gi bleed diverticuli? appreciate GI input s/p scope no acute findings okay for diet trend h/h abd exam benign no acute surgical intervention planned will follow with recs thank you resp support COVID + no gi bleed actively d dimer up elaquis d/c planning continues to remain + as of 06/09 (10) Lower GI bleed Assessment & Plan: Findings: There is a gastrostomy tube in place. The bowel gas pattern is unremarkable. No masses or unusual calcifications. There are degenerative changes of the lumbar spine Impression: No acute process DAILY ESTIMATED NEEDS: Needs based on Cardiac, pulmonary 56.3kg abw 25-30 kcals/kg 0503-1932 total kcals 1-1.5 g protein/kg 56-85 g total protein 25-30 mL/kg 3889-1790 total fluid mLs NUTRITION DIAGNOSIS: *Swallowing difficulty R/T dysphagia as evidenced by pt is GT dep w/ h/o CVA. CURRENT TF: Jevity 1.2 @ 60ml/hr x 24 hrs ENTERAL NUTRITION RECOMMENDATIONS: Glucerna 1.5 @ 40ml/hr x24 hrs to provide 960ml, 1440 kcal, 79g pro, 729ml free h2O - Rec TF change to Glucerna 1.5: A1C 5.9, BGs elevated - Start Glucerna 1.5 @35ml/hr for 6 hrs, advance 10ml/hr q4-6 hrs to goal - Flush per MD. HOB over 30 degrees ADDITIONAL RECOMMENDATIONS: * Calibrated bed scale wts as able * Monitor BGs, need for NISS-> mid 100's, rec niss * Monitor lytes, replete as needed K now elev, monitor trend and need for TF change. (11) Epilepsy (12) Acute febrile illness (13) CVA (cerebral vascular accident) (14) Suspected 2019 novel coronavirus infection (15) Diabetes mellitus (16) HTN (hypertension) Tomi Ordoñez Jun 15, 2019 12:03
--- NOTE | 2019-06-15 13:05 | General Progress Note ---
Assessment/Plan Status: stable Assessment/Plan: 74-year-old female from [facility] w/PMH CVA, dysphasia s/p PEG, dementia, epilepsy, ?DMT2 who presents with bright red blood per rectum, GIB. Patient came facility with multiple COVID positive patients, pt is COVID positive. Colonoscopy performed on 06/01 without active bleeding. Patient was noted COVID positive, ID and pulm on board and pt received hydroxychloroquine for 5 days. Pt w/repeat COVID positive but clinically stable. D/w ID, pt ok to d/c back to SNF at this time. Pt noted with hyperkalemia for which lisinopril was stopped. Coreg was d/c'd for bradycardia. Pt to be d/c back to SNF in stable condition with f/u w/PCP. #Acute blood loss anemia - stable #Acute GIB - stable -Colonoscopy 06/01 without active bleed -Surgery following - no sx at this time -GI following - no further intervention at this time. #COVID19 infection, second PCR positive #Fever - resolved #elevated D-Dimer 2/2 to above #Staph bacteremia - contaminant -BCx staph bacteremia, repeat negative, likely contaminant per ID -d/w Pulm, no need for OAC -ID: s/p hydroxychloroquine, cont. to monitor off abx -repeat 06/07 and 06/09 COVID positive -pt afebrile >48 hrs -pt stable to return to SNF #h/o DMT2 -per chart review pt w/h/o DM -no medications seen in MAR from [place] -Hgb A1C 5.9, not in diabetic range #HTN #HLD -ASA -home coreg held 2/2 bradycardia -amlodipine 10 mg -stopped lisinopril due to hyperkalemia #H/o Epilepsy #Seizures #Dementia -no seizure activity reported by [place] -cont. valproic acid -cont. home risperdol #Dysphagia s/p PEG -TF per nutrition #Hyperkalemia #Hypokalemia - resolved -Stop lisinopril -repeat BMP DVT PPx: lovenox Time spent on encounter: 25 mins, 15 on counseling, coordination of care with consulting MDs, RN, executive account manager. Time of note doesn't reflect time of encounter. Subjective Allergies: Coded Allergies: IODINE (Verified Allergy, Unknown, 11/10/17) Subjective F/u for acute blood loss anemia, Second COVID-19 PCR positive, s/p abx, pending retest COVID. Pt pending bed at [place]. Was told pt to be picked up today. No acute events overnight. Objective Last 24 Hour Vital Signs Date Time Temp Pulse Resp B/P (MAP) Pulse Ox O2 Delivery O2 Flow Rate FiO2 06/15/19 09:18 70 115/58 06/15/19 09:00 Room Air 06/15/19 08:00 97.9 74 20 115/58 (77) 97 06/15/19 08:00 74 06/15/19 04:00 97.7 80 17 115/67 (83) 98 06/15/19 04:00 67 06/15/19 00:00 97.8 76 16 110/55 (73) 96 06/15/19 00:00 66 06/14/19 21:00 98.2 79 19 106/59 (75) 96 06/14/19 21:00 Room Air 06/14/19 20:00 79 06/14/19 16:00 97.1 77 20 102/58 (73) 98 06/14/19 16:00 83 Intake and Output 06/14/19 06/15/19 19:00 07:00 Intake Total 60 ml 240 ml Output Total 600 ml Balance 60 ml -360 ml Tube Feeding 60 ml 240 ml Output Urine Total 600 ml # Voids 1 3 # Bowel Movements 2 Height (Feet): 5 Height (Inches): 3.00 Weight (Pounds): 153 Objective General Appearance: NAD, awake, appears comfortable HEENT: NCAT, MMM Cardiovascular: normal rate, regular rhythm Respiratory/Chest: lungs clear, normal breath sounds, no accessory muscle usage Abdomen: non tender, soft, +PEG c/d/i Ext: no edema Tori Hill M.D. Jun 15, 2019 13:05
== END 2019-06-15 11:30 | DRG 177 ==
LOC: EDBD 11:10 → EMR 11:45 → ICU 12:08 → EDBEDREQ 21:19 → 2W 06-01 23:00 → 2E 06-08 12:18
PROC: 30233R1 Transfusion of Nonautologous Platelets into Peripheral Vein, Percutaneous Approach (ICD-10-PCS; principal; 2019-05-30)
PROC: 0DBN8ZZ Excision of Sigmoid Colon, Via Natural or Artificial Opening Endoscopic (ICD-10-PCS; 2019-06-02 10:46)
PROC: 0DBL8ZZ Excision of Transverse Colon, Via Natural or Artificial Opening Endoscopic (ICD-10-PCS; 2019-06-02 10:46)
DX: U07.1 COVID-19 (principal); J12.89 Other viral pneumonia; K57.31 Diverticulosis of large intestine without perforation or abscess with bleeding; G92 Toxic encephalopathy; D62 Acute posthemorrhagic anemia; D61.818 Other pancytopenia; Z43.1 Encounter for attention to gastrostomy; D69.6 Thrombocytopenia, unspecified; E11.9 Type 2 diabetes mellitus without complications; I10 Essential (primary) hypertension; E78.5 Hyperlipidemia, unspecified; F03.90 Unspecified dementia, unspecified severity, without behavioral disturbance, psychotic disturbance, mood disturbance, and anxiety; E87.6 Hypokalemia; E83.52 Hypercalcemia; R13.10 Dysphagia, unspecified; Z86.73 Personal history of transient ischemic attack (TIA), and cerebral infarction without residual deficits; Z88.8 Allergy status to other drugs, medicaments and biological substances; K64.8 Other hemorrhoids; R00.1 Bradycardia, unspecified; K59.00 Constipation, unspecified
CPT/HCPCS: 36415; 71045; 74018; 76700; 80048; 80053; 80164; 80202; 81003; 82550; 82553; 82728; 83036; 83540; 83550; 83605; 83735; 84439; 84443; 84484; 85007; 85025; 85044; 85060; 85379; 85610; 85730; 86703; 86705; 86709; 86803; 86850; 86900; 86901; 86920; 87040; 87181; 87340; 87497; 87635; 93005; 94003; 94150; 96365; 96368; 96375; 99291; J1815; J7030; J8499